=== PATIENT | male | born 1950 | race Caucasian/White ===

== ENCOUNTER → 2020-03-13 09:47 | Outpatient (BNVA) | payer SELFPAY | PROVIDERS: PCP Internal Medicine; Visit Provider Internal Medicine | DX: I48.20 Chronic atrial fibrillation, unspecified (principal); Z51.81 Encounter for therapeutic drug level monitoring; Z79.01 Long term (current) 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 | CPT/HCPCS: 85610; 99211 ==

== ENCOUNTER → 2020-03-20 13:58 | Outpatient (BNVA) | payer SELFPAY | PROVIDERS: PCP Internal Medicine; Visit Provider Internal Medicine | DX: I48.20 Chronic atrial fibrillation, unspecified (principal); Z51.81 Encounter for therapeutic drug level monitoring; Z79.01 Long term (current) 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 | CPT/HCPCS: 85610 ==

== ENCOUNTER → 2020-04-03 09:43 | Outpatient (BNVA) | payer MEDICARE, SELFPAY | PROVIDERS: PCP Internal Medicine; Visit Provider Internal Medicine | DX: I48.20 Chronic atrial fibrillation, unspecified (principal); Z51.81 Encounter for therapeutic drug level monitoring; Z79.01 Long term (current) 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 | CPT/HCPCS: 85610; 99211 ==

== ENCOUNTER 2020-05-01 09:11 | Outpatient (REF) | payer MEDICARE, SELFPAY ==
[2020-05-01 11:03] LABS: Anion Gap 13 (12-20); Blood Urea Nitrogen 23 mg/dL (9-16); Calcium 8.8 mg/dL (8.4-10.2); Carbon Dioxide 32 mmol/L (22-29); Chloride 98 mmol/L (96-108); Estimated Glomerular Filt Rate 52; Glucose Random 167 mg/dL (60-115); Potassium 4.3 mmol/l (3.3-5.1); Sodium 139 mmol/L (135-145)
[2020-05-01 11:32] LABS: Digoxin 0.8 ng/mL (0.8-2.0)
== END 2020-05-01 09:12 | disposition home or self-care (01) ==
LOC: HO.LAB 09:11
PROVIDERS: PCP Internal Medicine; Visit Provider Nurse Practitioner Family
DX: I48.20 Chronic atrial fibrillation, unspecified (principal)
CPT/HCPCS: 80048; 80162; 85610; 99211

== ENCOUNTER → 2020-05-08 09:16 | Outpatient (BNVA) | payer MEDICARE, SELFPAY | PROVIDERS: PCP Internal Medicine; Referring Provider Internal Medicine; Visit Provider Internal Medicine Cardiovascular Disease | DX: I50.32 Chronic diastolic (congestive) heart failure (principal); I11.0 Hypertensive heart disease with heart failure; I48.20 Chronic atrial fibrillation, unspecified | CPT/HCPCS: 85610; 99211; 99212 ==

== ENCOUNTER → 2020-06-07 09:22 | Outpatient (BNVA) | payer MEDICARE, SELFPAY | PROVIDERS: PCP Internal Medicine; Visit Provider Internal Medicine | DX: I48.21 Permanent atrial fibrillation (principal); Z79.01 Long term (current) 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; Z51.81 Encounter for therapeutic drug level monitoring | CPT/HCPCS: 85610; 99211 ==

== ENCOUNTER → 2020-07-05 09:38 | Outpatient (BNVA) | payer MEDICARE, SELFPAY | PROVIDERS: PCP Internal Medicine; Visit Provider Internal Medicine | DX: I48.20 Chronic atrial fibrillation, unspecified (principal); Z51.81 Encounter for therapeutic drug level monitoring; Z79.01 Long term (current) 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 | CPT/HCPCS: 85610; 99211 ==

== ENCOUNTER → 2020-07-17 09:34 | Outpatient (BNVA) | payer MEDICARE, SELFPAY | PROVIDERS: PCP Internal Medicine; Visit Provider Internal Medicine | DX: I48.20 Chronic atrial fibrillation, unspecified (principal); Z51.81 Encounter for therapeutic drug level monitoring; Z79.01 Long term (current) 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 | CPT/HCPCS: 85610; 99211 ==

== ENCOUNTER → 2020-08-14 09:32 | Outpatient (BNVA) | payer MEDICARE, SELFPAY | PROVIDERS: PCP Internal Medicine; Visit Provider Internal Medicine | DX: I48.20 Chronic atrial fibrillation, unspecified (principal); Z51.81 Encounter for therapeutic drug level monitoring; Z79.01 Long term (current) 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 | CPT/HCPCS: 85610; 99211 ==

== ENCOUNTER → 2020-09-04 09:42 | Outpatient (BNVA) | payer MEDICARE, SELFPAY | PROVIDERS: PCP Internal Medicine; Visit Provider Internal Medicine | DX: I48.20 Chronic atrial fibrillation, unspecified (principal); Z79.01 Long term (current) 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; Z51.81 Encounter for therapeutic drug level monitoring | CPT/HCPCS: 85610; 99211 ==

== ENCOUNTER → 2020-10-01 10:19 | Outpatient (BNVA) | payer MEDICARE, SELFPAY | PROVIDERS: PCP Internal Medicine; Visit Provider Internal Medicine | DX: Z51.81 Encounter for therapeutic drug level monitoring (principal) | CPT/HCPCS: Q3014 ==

== ENCOUNTER → 2020-10-08 11:36 | Outpatient (BNVA) | payer MEDICARE, SELFPAY | PROVIDERS: PCP Internal Medicine; Visit Provider Internal Medicine | DX: I48.20 Chronic atrial fibrillation, unspecified (principal) | CPT/HCPCS: Q3014 ==

== ENCOUNTER → 2020-10-15 11:44 | Outpatient (BNVA) | payer MEDICARE, SELFPAY | PROVIDERS: PCP Internal Medicine; Visit Provider Internal Medicine | DX: I48.20 Chronic atrial fibrillation, unspecified (principal); Z51.81 Encounter for therapeutic drug level monitoring; Z79.01 Long term (current) 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 | CPT/HCPCS: 85610; 99211 ==

== ENCOUNTER 2020-10-18 14:33 | Outpatient (REF) | payer MEDICARE, SELFPAY ==
[2020-10-18 16:22] LABS: Anion Gap 15 (12-20); Blood Urea Nitrogen 21 mg/dL (9-16); Calcium 9.1 mg/dL (8.4-10.2); Carbon Dioxide 31 mmol/L (22-29); Chloride 99 mmol/L (96-108); Estimated Glomerular Filt Rate 52; Glucose Random 81 mg/dL (60-115); Potassium 4.9 mmol/L (3.3-5.1); Sodium 140 mmol/L (135-145)
[2020-10-18 16:28] LABS: B Type Natriuretic Peptide 55 pg/mL (<100)
[2020-10-18 16:46] LABS: Digoxin 0.6 ng/mL (0.8-2.0)
== END 2020-10-18 14:34 | disposition home or self-care (01) ==
LOC: HO.LAB 14:33
PROVIDERS: Absent Provider Internal Medicine Cardiovascular Disease; PCP Internal Medicine Cardiovascular Disease; Visit Provider Internal Medicine
DX: I50.32 Chronic diastolic (congestive) heart failure (principal); I48.20 Chronic atrial fibrillation, unspecified; J44.9 Chronic obstructive pulmonary disease, unspecified; Z79.01 Long term (current) 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; Z79.899 Other long term (current) drug therapy
CPT/HCPCS: 36415; 80048; 80162; 83880; 93005; 99212; Q3014

== ENCOUNTER → 2020-10-25 09:45 | Outpatient (BNVA) | payer MEDICARE, SELFPAY | PROVIDERS: PCP Internal Medicine Cardiovascular Disease; Visit Provider Internal Medicine ==

== ENCOUNTER → 2020-11-01 09:41 | Outpatient (BNVA) | payer MEDICARE, SELFPAY | PROVIDERS: PCP Internal Medicine Cardiovascular Disease; Visit Provider Internal Medicine ==

== ENCOUNTER → 2020-11-07 09:14 | Outpatient (REF) | payer MEDICARE, SELFPAY ==
--- NOTE | 2020-11-07 09:18 | CA_ITS ---
Transthoracic Echocardiogram Patient (Last, First, Middle): Kiran Law, Gender: Male Date of : 1950 Age: 70 Procedure Date: 11/07/2020 Procedure Type: Transthoracic Echocardiogram Location: OP Height: 172.72 cm Weight: 95.71 kg BSA: 2.09 m2 Heart Rate: bpm BP: 130 / 62 mmHg Load Out Worker: SHAI Price MD: Mateo Bird MD Rooms Director: Mateo iBrd MD Symptoms: I50.32 - Chronic diastolic (congestive) heart failure Study Quality: Fair ECG Rhythm: Atrial Fibrillation Conclusions: - 1. Normal LV systolic function 2. Severe biatrial enlargement 3. Moderate to severe elevation of right ventricular systolic pressure 4. No pericardial effusion Findings Left Ventricle Normal left ventricular size, thickness, and systolic function. The visually estimated ejection fraction is between 55-60%. Right Ventricle Moderately increased right ventricular cavity size. There is low normal right ventricular systolic function. Atria Severe biatrial enlargement. There is lipomatous hypertrophy of the interatrial septum. There is no evidence of interatrial shunt. Aortic Valve The aortic valve was not well visualized. There is no aortic valve stenosis. There is no aortic valve regurgitation. Mitral Valve The mitral valve was not well visualized. There is trace mitral valve regurgitation. There is no mitral valve stenosis. Pulmonic Valve The pulmonic valve was not well visualized. Tricuspid Valve Likely normal tricuspid valve structure and function. There is mild tricuspid valve regurgitation. The right ventricular systolic pressure is 61 mmHg. Mildly elevated right atrial pressure. Moderate to severe pulmonary hypertension is present. Great Vessels All visible segments of the aorta are normal in size. The pulmonary artery was not well visualized. Venous The inferior vena cava is mildly dilated and collapses less than 50% with inspiration. Pericardium/Pleural There is no evidence of pericardial effusion. Prior Study Comparison Changes noted compared to prior study dated: 10/17/2019. RV systolic function is mildly increased Measurements 2D Linear Measurements IVSd: 1.07 0.6-0.9/0.6-1.0 cm LVIDd: 5.37 3.9-5.3/4.2-5.9 cm LVIDd Index: 2.57 2.4-3.2/2.2-3.1 cm/m2 LVIDs: 3.74 2.0-3.6 cm LVPWd: 1.08 0.7-1.1 cm Ao Root: 3.70 2.1-3.5 cm LA Diam: 3.90 2.7-3.8/3.0-4.0 cm LAIDs Index: 1.87 1.5-2.3 cm/m2 LV Mass: 281.22 67-162/88-224 g LV Mass Index: 134.56 43-95/49-115 g/m2 LVOT Diam: 2.50 3.0+(-)1.3 cm 2D Systolic Function EF 4C: 57.40 >55% EF 2C: 52.70 >55% EF BiP: 55.80 >55% Aortic Valve AoV Pk Bora: 1.63 AoV Mn Bora: 1.10 AoV VTI: 0.33 AoV Pk Grad: 11.00 Aov Mn Grad: 5.00 MARY Cont.VTI: 3.02 LVOT LVOT Pk Bora: 0.96 LVOT Mn Bora: 0.67 LVOT VTI: 0.20 LVOT Pk Grad: 4.00 LVOT Mn Grad: 2.00 LVOT Diam: 2.50 LVOT Area: 4.91 Tricuspid Valve TR Pk Bora: 3.65 TR Pk Grad: 53.00 RA Press: 8.00 RVSP: 61.00 Great Vessels Aorta Ao Root-2D: 3.70 2.0-3.7 cm Ao Arch: 2.70 Updated in Other Vendor System with Status of Final Mateo Bird MD electronically signed on 11/07/2020 4:14:03 PM with status of Final
== END ==
LOC: HO.CARD 09:14
PROVIDERS: Visit Provider Internal Medicine Cardiovascular Disease
DX: I50.32 Chronic diastolic (congestive) heart failure (principal); I48.20 Chronic atrial fibrillation, unspecified; I27.20 Pulmonary hypertension, unspecified
CPT/HCPCS: 93306

== ENCOUNTER → 2020-11-08 09:43 | Outpatient (BNVA) | payer MEDICARE, SELFPAY | PROVIDERS: PCP Internal Medicine Cardiovascular Disease; Visit Provider Internal Medicine ==

== ENCOUNTER → 2020-11-15 10:14 | Outpatient (BNVA) | payer MEDICARE, SELFPAY | PROVIDERS: PCP Internal Medicine; Visit Provider Internal Medicine ==

== ENCOUNTER → 2020-11-20 09:47 | Outpatient (BNVA) | payer MEDICARE, SELFPAY | PROVIDERS: PCP Internal Medicine; Visit Provider Internal Medicine Cardiovascular Disease | DX: I50.32 Chronic diastolic (congestive) heart failure (principal); I48.20 Chronic atrial fibrillation, unspecified | CPT/HCPCS: 99212 ==

== ENCOUNTER → 2020-11-22 14:29 | Outpatient (BNVA) | payer MEDICARE, SELFPAY | PROVIDERS: PCP Internal Medicine; Visit Provider Internal Medicine | DX: I48.20 Chronic atrial fibrillation, unspecified (principal); Z51.81 Encounter for therapeutic drug level monitoring; Z79.01 Long term (current) 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 | CPT/HCPCS: 99211 ==

== ENCOUNTER → 2020-12-06 09:17 | Outpatient (REF) | payer MEDICARE, SELFPAY ==
--- NOTE | ~2020-12-06 | NM_ITS ---
TC- Pyrophosphate Cardiac study INDICATION: Evaluation cardiac amyloidosis CLINICAL HISTORY: 70-year-old male with prior history of long-standing atrial fibrillation developed recent heart failure preserved ejection fraction with increased LV wall thickness TECHNIQUE: The patient was injected with 25 mCi of technetium pyrophosphate intravenously. Planar images of the chest were obtained in the anterior and left lateral view after [address] images of the chest were also obtained, however difficult to process due to absent cardiac uptake. FINDINGS: 1. Image quality is adequate 2. Semiquantitative visual scarring of the cardiac uptake is 0 3.. No clear other abnormalities noted about conclusion: CONCLUSION: 1. No evidence of TTR-type cardiac amyloidosis 2. This study does not conclusively rule out light chain cardiac amyloidosis and if clinically suspected serum and urine studies should be considered
== END ==
LOC: HO.NUCMED 09:17
PROVIDERS: Visit Provider Internal Medicine Cardiovascular Disease
DX: I50.32 Chronic diastolic (congestive) heart failure (principal)
CPT/HCPCS: 78803; A9538

== ENCOUNTER → 2020-12-11 09:38 | Outpatient (BNVA) | payer MEDICARE, SELFPAY | PROVIDERS: PCP Internal Medicine; Visit Provider Internal Medicine | DX: I48.20 Chronic atrial fibrillation, unspecified (principal); Z51.81 Encounter for therapeutic drug level monitoring; Z79.01 Long term (current) 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 | CPT/HCPCS: 85610; 99211 ==

== ENCOUNTER → 2021-01-01 08:55 | Outpatient (BNVA) | payer MEDICARE, SELFPAY | PROVIDERS: PCP Internal Medicine; Visit Provider Internal Medicine | DX: I48.20 Chronic atrial fibrillation, unspecified (principal); Z51.81 Encounter for therapeutic drug level monitoring; Z79.01 Long term (current) 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 | CPT/HCPCS: 85610; 99211 ==

== ENCOUNTER → 2021-01-08 09:35 | Outpatient (BNVA) | payer MEDICARE, SELFPAY | PROVIDERS: PCP Internal Medicine; Visit Provider Internal Medicine | DX: I48.20 Chronic atrial fibrillation, unspecified (principal); Z79.01 Long term (current) 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; Z51.81 Encounter for therapeutic drug level monitoring | CPT/HCPCS: 85610; 99211 ==

== ENCOUNTER → 2021-01-22 09:52 | Outpatient (BNVA) | payer MEDICARE, SELFPAY | PROVIDERS: PCP Internal Medicine; Visit Provider Internal Medicine | DX: I48.20 Chronic atrial fibrillation, unspecified (principal); Z51.81 Encounter for therapeutic drug level monitoring; Z79.01 Long term (current) 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 | CPT/HCPCS: 85610; 99211 ==

== ENCOUNTER → 2021-02-19 09:45 | Outpatient (BNVA) | payer MEDICARE, SELFPAY | PROVIDERS: PCP Internal Medicine; Visit Provider Internal Medicine | DX: I48.20 Chronic atrial fibrillation, unspecified (principal); Z51.81 Encounter for therapeutic drug level monitoring; Z79.01 Long term (current) 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 | CPT/HCPCS: 85610; 99211 ==

== ENCOUNTER → 2021-03-05 09:25 | Outpatient (BNVA) | payer MEDICARE, SELFPAY | PROVIDERS: PCP Internal Medicine; Visit Provider Internal Medicine | DX: I48.20 Chronic atrial fibrillation, unspecified (principal); Z51.81 Encounter for therapeutic drug level monitoring; Z79.01 Long term (current) 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 | CPT/HCPCS: 85610; 99211 ==

== ENCOUNTER → 2021-04-02 09:32 | Outpatient (BNVA) | payer MEDICARE, SELFPAY | PROVIDERS: PCP Internal Medicine; Visit Provider Internal Medicine | DX: I48.20 Chronic atrial fibrillation, unspecified (principal); Z51.81 Encounter for therapeutic drug level monitoring; Z79.01 Long term (current) 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 | CPT/HCPCS: 85610; 99211 ==

== ENCOUNTER → 2021-05-07 09:32 | Outpatient (BNVA) | payer MEDICARE, SELFPAY | PROVIDERS: PCP Internal Medicine; Visit Provider Internal Medicine | DX: I48.20 Chronic atrial fibrillation, unspecified (principal); Z51.81 Encounter for therapeutic drug level monitoring; Z79.01 Long term (current) 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 | CPT/HCPCS: 85610; 99211 ==

== ENCOUNTER → 2021-05-21 09:54 | Outpatient (BNVA) | payer MEDICARE, SELFPAY | PROVIDERS: PCP Internal Medicine; Visit Provider Internal Medicine | DX: I48.20 Chronic atrial fibrillation, unspecified (principal); Z51.81 Encounter for therapeutic drug level monitoring; Z79.01 Long term (current) 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 | CPT/HCPCS: 85610; 99211 ==

== ENCOUNTER → 2021-06-18 09:28 | Outpatient (BNVA) | payer MEDICARE, SELFPAY | PROVIDERS: PCP Internal Medicine; Visit Provider Internal Medicine | DX: I48.20 Chronic atrial fibrillation, unspecified (principal); Z51.81 Encounter for therapeutic drug level monitoring; Z79.01 Long term (current) 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 | CPT/HCPCS: 85610; 99211 ==

== ENCOUNTER → 2021-07-16 09:36 | Outpatient (BNVA) | payer MEDICARE, SELFPAY | PROVIDERS: PCP Internal Medicine; Visit Provider Internal Medicine | DX: I48.20 Chronic atrial fibrillation, unspecified (principal); Z51.81 Encounter for therapeutic drug level monitoring; Z79.01 Long term (current) 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 | CPT/HCPCS: 85610; 99211 ==

== ENCOUNTER → 2021-08-13 10:01 | Outpatient (BNVA) | payer MEDICARE, SELFPAY | PROVIDERS: PCP Internal Medicine; Visit Provider Internal Medicine | DX: I48.20 Chronic atrial fibrillation, unspecified (principal); Z51.81 Encounter for therapeutic drug level monitoring; Z79.01 Long term (current) 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 | CPT/HCPCS: 85610; 99211 ==

== ENCOUNTER 2021-08-19 08:28 | Outpatient (REF) | payer MEDICARE, SELFPAY ==
[2021-08-19 10:24] LABS: Hematocrit 43.6 % (42.0-52.0); Hemoglobin 13.9 g/dl (14.0-18.0); Mean Corpuscular HGB Conc 31.9 g/dl (31.0-36.0); Mean Corpuscular Volume 100.5 fL (80.0-98.0); Mean Platelet Volume 10.1 fL (9.4-12.4); Platelet Count 206 X10*3/uL (160-400); Red Blood Count 4.34 X10*6/uL (4.60-5.80); Red Cell Distribution Width 16.4 % (11.0-16.0); White Blood Count 9.6 X10*3/uL (4.8-10.8)
[2021-08-19 10:56] LABS: Anion Gap 13 (12-20); Blood Urea Nitrogen 28 mg/dL (9-16); Calcium 9.3 mg/dL (8.4-10.2); Carbon Dioxide 33 mmol/L (22-29); Chloride 98 mmol/L (96-108); Estimated Glomerular Filt Rate 43; Glucose Random 115 mg/dL (60-115); Potassium 4.5 mmol/L (3.3-5.1); Sodium 139 mmol/L (135-145)
[2021-08-19 10:59] LABS: B Type Natriuretic Peptide 42 pg/mL (<100)
[2021-08-19 11:33] LABS: Digoxin 0.7 ng/mL (0.8-2.0)
== END 2021-08-19 08:29 | disposition home or self-care (01) ==
LOC: HO.LAB 08:28
PROVIDERS: PCP Internal Medicine; Referring Provider Internal Medicine; Visit Provider Internal Medicine Cardiovascular Disease
DX: I50.32 Chronic diastolic (congestive) heart failure (principal); I48.20 Chronic atrial fibrillation, unspecified; Z79.01 Long term (current) 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; Z79.899 Other long term (current) drug therapy
CPT/HCPCS: 36415; 80048; 80162; 83880; 85027; 99212

== ENCOUNTER → 2021-09-10 09:19 | Outpatient (BNVA) | payer MEDICARE, SELFPAY | PROVIDERS: PCP Internal Medicine; Visit Provider Internal Medicine | DX: I48.20 Chronic atrial fibrillation, unspecified (principal); Z51.81 Encounter for therapeutic drug level monitoring; Z79.01 Long term (current) 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 | CPT/HCPCS: 85610; 99211 ==

== ENCOUNTER 2021-09-19 10:36 | Outpatient (REF) | payer MEDICARE, SELFPAY ==
[2021-09-19 11:53] LABS: Digoxin 0.5 ng/mL (0.8-2.0)
[2021-09-19 11:58] LABS: Anion Gap 12 (12-20); B Type Natriuretic Peptide 52 pg/mL (<100); Blood Urea Nitrogen 31 mg/dL (9-16); Calcium 9.7 mg/dL (8.4-10.2); Carbon Dioxide 34 mmol/L (22-29); Chloride 100 mmol/L (96-108); Estimated Glomerular Filt Rate 41; Glucose Random 131 mg/dL (60-115); Potassium 4.5 mmol/L (3.3-5.1); Sodium 141 mmol/L (135-145)
== END 2021-09-19 10:37 | disposition home or self-care (01) ==
LOC: HO.LAB 10:36
PROVIDERS: PCP Internal Medicine; Visit Provider Internal Medicine Cardiovascular Disease
DX: I50.32 Chronic diastolic (congestive) heart failure (principal); I48.20 Chronic atrial fibrillation, unspecified; Z79.899 Other long term (current) drug therapy
CPT/HCPCS: 36415; 80048; 80162; 83880

== ENCOUNTER → 2021-10-08 09:27 | Outpatient (BNVA) | payer MEDICARE, SELFPAY | PROVIDERS: PCP Internal Medicine; Visit Provider Internal Medicine | DX: I48.20 Chronic atrial fibrillation, unspecified (principal); Z79.01 Long term (current) 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; Z51.81 Encounter for therapeutic drug level monitoring | CPT/HCPCS: 85610; 99211 ==

== ENCOUNTER → 2021-11-12 09:48 | Outpatient (BNVA) | payer MEDICARE, SELFPAY | PROVIDERS: PCP Internal Medicine; Visit Provider Internal Medicine | DX: I48.20 Chronic atrial fibrillation, unspecified (principal); Z79.01 Long term (current) 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; Z51.81 Encounter for therapeutic drug level monitoring | CPT/HCPCS: 85610; 99211 ==

== ENCOUNTER 2021-12-17 09:59 | Outpatient (REF) | payer MEDICARE, SELFPAY ==
[2021-12-17 10:24] LABS: Prothrombin Time 80.6 SEC (10.0-13.1)
[2021-12-17 10:33] LABS: INTERNATIONAL NORM RATIO 6.5 (0.9-1.1)
== END 2021-12-17 10:00 | disposition home or self-care (01) ==
LOC: HO.LAB 09:59
PROVIDERS: Visit Provider Internal Medicine
DX: I48.20 Chronic atrial fibrillation, unspecified (principal); Z51.81 Encounter for therapeutic drug level monitoring; Z79.01 Long term (current) 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
CPT/HCPCS: 36415; 85610; 99211

== ENCOUNTER → 2021-12-19 10:45 | Outpatient (BNVA) | payer MEDICARE, SELFPAY | PROVIDERS: PCP Internal Medicine; Visit Provider Internal Medicine | DX: I48.20 Chronic atrial fibrillation, unspecified (principal); Z51.81 Encounter for therapeutic drug level monitoring; Z79.01 Long term (current) 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 | CPT/HCPCS: 85610; 99211 ==

== ENCOUNTER → 2021-12-27 09:47 | Outpatient (BNVA) | payer MEDICARE, SELFPAY | PROVIDERS: PCP Internal Medicine; Visit Provider Internal Medicine | DX: I48.20 Chronic atrial fibrillation, unspecified (principal); Z79.01 Long term (current) 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; Z51.81 Encounter for therapeutic drug level monitoring | CPT/HCPCS: 85610; 99211 ==

== ENCOUNTER → 2022-01-06 09:18 | Outpatient (REF) | payer MEDICARE, SELFPAY ==
--- NOTE | 2022-01-06 09:20 | CA_ITS ---
Transthoracic Echocardiogram Patient (Last, First, Middle): Kiran Law, Gender: Male Date of : 1950 Age: 71 Procedure Date: 01/06/2022 Procedure Type: Transthoracic Echocardiogram Location: OP Height: 172.72 cm Weight: 97.07 kg BSA: 2.10 m2 Heart Rate: bpm BP: 120 / 60 mmHg Sausage Machine Operator: TO Referring MD: Mateo Bird MD Symptoms: I50.32 - Chronic diastolic (congestive) heart failure Study Quality: Fair ECG Rhythm: Atrial Fibrillation Conclusions: - The left ventricular systolic function is normal. The calculated ejection fraction is 62% by biplane method. - Moderately increased right ventricular cavity size. - There is mild dilatation of the sinuses of Valsalva measuring 4.18 cm and mild dilatation of the ascending aorta measuring 4.00 cm. - There is mild mitral annular calcification. - There is mild tricuspid valve regurgitation. - Moderate pulmonary hypertension is present. Findings Left Ventricle Normal left ventricular cavity size. There is normal left ventricular wall thickness. The left ventricular systolic function is normal. The calculated ejection fraction is 62% by biplane method. There is no evidence of regional wall motion abnormalities. Diastolic function is indeterminate on the basis of available data. Right Ventricle Moderately increased right ventricular cavity size. There is normal right ventricular systolic function. Atria Severe biatrial enlargement. Aortic Valve The aortic valve was not well visualized. There is no aortic valve stenosis. There is trace (trivial) aortic valve regurgitation. Mitral Valve The mitral valve appears normal. There is mild mitral annular calcification. There is trace mitral valve regurgitation. There is no mitral valve stenosis. Pulmonic Valve The pulmonic valve is likely normal. Tricuspid Valve There is mild tricuspid valve regurgitation. The right ventricular systolic pressure is 53 mmHg. Moderate pulmonary hypertension is present. Great Vessels There is mild dilatation of the sinuses of Valsalva measuring 4.18 cm and mild dilatation of the ascending aorta measuring 4.00 cm. Venous The inferior vena cava is dilated and collapses greater than 50% with inspiration. Pericardium/Pleural There is no evidence of pericardial effusion. Prior Study Comparison Changes noted compared to prior study dated: 11/07/2020. Slight improvement in pulmonary hypertension. Measurements 2D Linear Measurements IVSd: 1.04 0.6-0.9/0.6-1.0 cm LVIDd: 5.61 3.9-5.3/4.2-5.9 cm LVIDd Index: 2.67 2.4-3.2/2.2-3.1 cm/m2 LVIDs: 4.05 2.0-3.6 cm LVPWd: 1.09 0.7-1.1 cm LA Diam: 4.20 2.7-3.8/3.0-4.0 cm LAIDs Index: 2.00 1.5-2.3 cm/m2 LV Mass: 298.61 67-162/88-224 g LV Mass Index: 142.20 43-95/49-115 g/m2 LVOT Diam: 2.20 3.0+(-)1.3 cm 2D Systolic Function EF 4C: 57.80 >55% EF 2C: 64.70 >55% EF BiP: 62.10 >55% Mitral Valve MV Pk E: 1.32 MV Decel Time: 173.00 E'Lateral: 12.10 E'Medial: 11.70 E/E' Med: 11.30 E/E' Lat: 10.90 PHT: 51.00 MVA PHT: 4.31 Decel Lyon: 7.59 Aortic Valve AoV Pk Bora: 1.56 AoV Mn Bora: 1.05 AoV VTI: 0.30 AoV Pk Grad: 10.00 Aov Mn Grad: 5.00 MARY Cont.VTI: 2.27 LVOT LVOT Pk Bora: 0.93 LVOT Mn Bora: 0.63 LVOT VTI: 0.18 LVOT Pk Grad: 3.00 LVOT Mn Grad: 2.00 LVOT Diam: 2.20 LVOT Area: 3.80 Diastolic Function MV Pk E: 1.32 E'Medial: 11.70 E/E' Med: 11.30 E' Laterial: 12.10 E/E' Lat: 10.90 Right Ventricle TAPSE (mm): 22.30 TVS' Bora: 14.80 Tricuspid Valve TR Pk Bora: 3.34 TR Pk Grad: 45.00 RA Press: 8.00 RVSP: 53.00 Great Vessels Aorta Sinus of Valsalva: 4.18 2.0-3.[address] Ridge: 2.58 1.7-3.4 cm Ao Asc: 4.00 2.1-3.4 cm Updated in Other Vendor System with Status of Final Ashok Lee MD electronically signed on 01/06/2022 12:03:13 PM with status of Final
== END ==
LOC: HO.CARD 09:18
PROVIDERS: Visit Provider Internal Medicine Cardiovascular Disease
DX: I50.32 Chronic diastolic (congestive) heart failure (principal); I48.91 Unspecified atrial fibrillation
CPT/HCPCS: 85610; 93306; 99211

== ENCOUNTER → 2022-01-28 09:44 | Outpatient (BNVA) | payer MEDICARE, SELFPAY | PROVIDERS: PCP Internal Medicine; Visit Provider Internal Medicine | DX: I48.20 Chronic atrial fibrillation, unspecified (principal); Z79.01 Long term (current) 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; Z51.81 Encounter for therapeutic drug level monitoring | CPT/HCPCS: 85610; 99211 ==

== ENCOUNTER → 2022-02-11 09:51 | Outpatient (BNVA) | payer MEDICARE, SELFPAY | PROVIDERS: PCP Internal Medicine; Visit Provider Internal Medicine | DX: I48.20 Chronic atrial fibrillation, unspecified (principal); Z79.01 Long term (current) 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; Z51.81 Encounter for therapeutic drug level monitoring | CPT/HCPCS: 85610; 99211 ==

== ENCOUNTER → 2022-02-14 09:54 | Outpatient (BNVA) | payer MEDICARE, SELFPAY | PROVIDERS: PCP Internal Medicine; Visit Provider Internal Medicine | DX: I48.20 Chronic atrial fibrillation, unspecified (principal); Z79.01 Long term (current) 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; Z51.81 Encounter for therapeutic drug level monitoring | CPT/HCPCS: 85610; 99211 ==

== ENCOUNTER → 2022-02-24 09:05 | Outpatient (BNVA) | payer MEDICARE, SELFPAY | PROVIDERS: PCP Internal Medicine; Visit Provider Internal Medicine Cardiovascular Disease | DX: I50.32 Chronic diastolic (congestive) heart failure (principal); I48.20 Chronic atrial fibrillation, unspecified; I77.89 Other specified disorders of arteries and arterioles | CPT/HCPCS: 93005; 99212 ==

== ENCOUNTER → 2022-02-28 09:52 | Outpatient (BNVA) | payer MEDICARE, SELFPAY | PROVIDERS: PCP Internal Medicine; Visit Provider Internal Medicine | DX: I48.20 Chronic atrial fibrillation, unspecified (principal); Z79.01 Long term (current) 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; Z51.81 Encounter for therapeutic drug level monitoring | CPT/HCPCS: 85610; 99211 ==

== ENCOUNTER → 2022-03-04 09:24 | Outpatient (BNVA) | payer MEDICARE, SELFPAY | PROVIDERS: PCP Internal Medicine; Visit Provider Internal Medicine | DX: I48.20 Chronic atrial fibrillation, unspecified (principal); Z79.01 Long term (current) 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; Z51.81 Encounter for therapeutic drug level monitoring | CPT/HCPCS: 85610; 99211 ==

== ENCOUNTER → 2022-03-11 08:56 | Outpatient (BNVA) | payer MEDICARE, SELFPAY | PROVIDERS: PCP Internal Medicine; Visit Provider Internal Medicine | DX: I48.20 Chronic atrial fibrillation, unspecified (principal); Z79.01 Long term (current) 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; Z51.81 Encounter for therapeutic drug level monitoring | CPT/HCPCS: 85610; 99211 ==

== ENCOUNTER → 2022-03-25 09:38 | Outpatient (BNVA) | payer MEDICARE, SELFPAY | PROVIDERS: PCP Internal Medicine; Visit Provider Internal Medicine | DX: I48.20 Chronic atrial fibrillation, unspecified (principal); Z79.01 Long term (current) 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; Z51.81 Encounter for therapeutic drug level monitoring | CPT/HCPCS: 85610; 99211 ==

== ENCOUNTER → 2022-03-28 10:10 | Outpatient (BNVA) | payer MEDICARE, SELFPAY | PROVIDERS: PCP Internal Medicine; Visit Provider Internal Medicine | DX: I48.20 Chronic atrial fibrillation, unspecified (principal); Z79.01 Long term (current) 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; Z51.81 Encounter for therapeutic drug level monitoring | CPT/HCPCS: 85610; 99211 ==

== ENCOUNTER → 2022-04-04 09:41 | Outpatient (BNVA) | payer MEDICARE, SELFPAY | PROVIDERS: PCP Internal Medicine; Visit Provider Internal Medicine | DX: I48.20 Chronic atrial fibrillation, unspecified (principal); Z79.01 Long term (current) 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; Z51.81 Encounter for therapeutic drug level monitoring | CPT/HCPCS: 85610; 99211 ==

== ENCOUNTER → 2022-04-18 09:52 | Outpatient (BNVA) | payer MEDICARE, SELFPAY | PROVIDERS: PCP Internal Medicine; Visit Provider Internal Medicine | DX: I48.20 Chronic atrial fibrillation, unspecified (principal); Z79.01 Long term (current) 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; Z51.81 Encounter for therapeutic drug level monitoring | CPT/HCPCS: 85610; 99211 ==

== ENCOUNTER → 2022-04-30 09:31 | Outpatient (BNVA) | payer MEDICARE, SELFPAY | PROVIDERS: PCP Internal Medicine; Visit Provider Internal Medicine | DX: I48.20 Chronic atrial fibrillation, unspecified (principal); Z51.81 Encounter for therapeutic drug level monitoring; Z79.01 Long term (current) 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 | CPT/HCPCS: 85610; 99211 ==

== ENCOUNTER → 2022-05-16 09:34 | Outpatient (BNVA) | payer MEDICARE, SELFPAY | PROVIDERS: PCP Internal Medicine; Visit Provider Internal Medicine | DX: I48.20 Chronic atrial fibrillation, unspecified (principal); Z79.01 Long term (current) 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; Z51.81 Encounter for therapeutic drug level monitoring | CPT/HCPCS: 85610; 99211 ==

== ENCOUNTER → 2022-06-13 09:20 | Outpatient (BNVA) | payer MEDICARE, SELFPAY | PROVIDERS: PCP Internal Medicine; Visit Provider Internal Medicine | DX: I48.20 Chronic atrial fibrillation, unspecified (principal); Z79.01 Long term (current) 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; Z51.81 Encounter for therapeutic drug level monitoring | CPT/HCPCS: 85610; 99211 ==

== ENCOUNTER → 2022-07-11 09:26 | Outpatient (BNVA) | payer MEDICARE, SELFPAY | PROVIDERS: PCP Internal Medicine; Visit Provider Internal Medicine | DX: I48.20 Chronic atrial fibrillation, unspecified (principal); Z79.01 Long term (current) 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; Z51.81 Encounter for therapeutic drug level monitoring | CPT/HCPCS: 85610; 99211 ==

== ENCOUNTER → 2022-08-08 09:20 | Outpatient (BNVA) | payer MEDICARE, SELFPAY | PROVIDERS: PCP Internal Medicine; Visit Provider Internal Medicine | DX: I48.20 Chronic atrial fibrillation, unspecified (principal); Z79.01 Long term (current) 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; Z51.81 Encounter for therapeutic drug level monitoring | CPT/HCPCS: 85610 ==

== ENCOUNTER → 2022-08-15 09:38 | Outpatient (BNVA) | payer MEDICARE, SELFPAY | PROVIDERS: PCP Internal Medicine; Visit Provider Internal Medicine | DX: I48.20 Chronic atrial fibrillation, unspecified (principal); Z79.01 Long term (current) 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; Z51.81 Encounter for therapeutic drug level monitoring | CPT/HCPCS: 85610; 99211 ==

== ENCOUNTER 2022-08-28 08:47 | Outpatient (REF) | payer MEDICARE, SELFPAY ==
[2022-08-28 10:36] LABS: Hematocrit 37.4 % (42.0-52.0); Hemoglobin 11.5 g/dl (14.0-18.0); Mean Corpuscular HGB Conc 30.7 g/dl (31.0-36.0); Mean Corpuscular Hemoglobin 31.1 pg (27.0-33.0); Mean Corpuscular Volume 101.1 fL (80.0-98.0); Mean Platelet Volume 9.8 fL (9.4-12.4); Platelet Count 203 X10*3/uL (160-400); Red Cell Distribution Width 17.6 % (11.0-16.0); White Blood Count 8.8 X10*3/uL (4.8-10.8)
[2022-08-28 10:41] LABS: INTERNATIONAL NORM RATIO 4.9 (0.9-1.1); Prothrombin Time 59.7 SEC (10.0-13.1)
[2022-08-28 11:07] LABS: Anion Gap 15 (12-20); B Type Natriuretic Peptide 59 pg/mL (<100); Blood Urea Nitrogen 20 mg/dL (9-16); Calcium 8.9 mg/dL (8.4-10.2); Carbon Dioxide 35 mmol/L (22-29); Chloride 100 mmol/L (96-108); Estimated Glomerular Filt Rate 46; Glucose Random 91 mg/dL (60-115); Potassium 3.9 mmol/L (3.3-5.1); Sodium 146 mmol/L (135-145)
[2022-08-28 11:08] LABS: Digoxin 0.9 ng/mL (0.8-2.0)
== END 2022-08-28 08:48 | disposition home or self-care (01) ==
LOC: HO.LAB 08:47
PROVIDERS: Absent Provider Internal Medicine Cardiovascular Disease; PCP Internal Medicine; Visit Provider Internal Medicine
DX: I50.32 Chronic diastolic (congestive) heart failure (principal); I48.20 Chronic atrial fibrillation, unspecified; I77.89 Other specified disorders of arteries and arterioles; Z79.899 Other long term (current) drug therapy; Z51.81 Encounter for therapeutic drug level monitoring; Z79.01 Long term (current) 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
CPT/HCPCS: 36415; 80048; 80162; 83880; 85027; 85610; 99211; 99212

== ENCOUNTER → 2022-09-01 09:10 | Outpatient (BNVA) | payer MEDICARE, SELFPAY | PROVIDERS: PCP Internal Medicine; Visit Provider Internal Medicine | DX: I48.20 Chronic atrial fibrillation, unspecified (principal); Z79.01 Long term (current) 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; Z51.81 Encounter for therapeutic drug level monitoring | CPT/HCPCS: 85610; 99211 ==

== ENCOUNTER → 2022-09-10 09:32 | Outpatient (BNVA) | payer MEDICARE, SELFPAY | PROVIDERS: PCP Internal Medicine; Visit Provider Internal Medicine | DX: I48.20 Chronic atrial fibrillation, unspecified (principal); Z51.81 Encounter for therapeutic drug level monitoring; Z79.01 Long term (current) 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 | CPT/HCPCS: 85610; 99211 ==

== ENCOUNTER → 2022-09-26 10:15 | Outpatient (BNVA) | payer MEDICARE, SELFPAY | PROVIDERS: PCP Internal Medicine; Visit Provider Internal Medicine | DX: I48.20 Chronic atrial fibrillation, unspecified (principal); Z79.01 Long term (current) 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; Z51.81 Encounter for therapeutic drug level monitoring | CPT/HCPCS: 85610; 99211 ==

== ENCOUNTER → 2022-09-29 07:54 | Outpatient (REF) | payer MEDICARE, SELFPAY ==
--- NOTE | ~2022-09-29 | NM_ITS ---
Lexiscan Myocardial perfusion study Indication: Atrial fibrillation, coronary disease, assess for ischemia Technique: The patient was brought in for a Lexiscan perfusion study on 09/29/2022 and was injected 0.4 mg of Lexiscan intravenously. Within a minute of this injection 30 mCi of sestamibi was given intravenously. Images were obtained using the SPECT gamma camera interlaced with the gating device. Images were obtained in supine position. Resting perfusion study was performed on 10/01/2022. Patient was administered 30 mCi of sestamibi intravenously at rest. Images were then obtained in supine position. Images were processed with the software and compared side to side in short axis, horizontal long axis and vertical long axis views. Total DLP 125mGy-cm. Findings: Raw acquisition reviewed. Arms by the patient's side. The stress perfusion study showed reduced tracer uptake along the inferior wall. With CT attenuation correction, there is improved uptake suggesting diaphragmatic attenuation artifact. The gated study shows normal LV systolic function with calculated LVEF of 63%. LV cavity is normal in size. The gated study shows normal wall thickening and contraction of segments. Resting study shows diminished tracer uptake along the inferior wall. Improvement with uptake with CT attenuation correction. Gating at rest reveals normal wall motion with ejection fraction at 60%. The findings are consistent with fixed inferior defect suspected to be from diaphragmatic attenuation artifact. NM/NM lex perf SPECT rest & str Impression: 1. Myocardial perfusion imaging study shows no clear evidence of any ischemia or infarction. Probably normal perfusion. 2. Gated LVEF is 63% during stress and 60% during rest. 3. Transient ischemic dilatation not present. EKG component of the test reported separately.
--- NOTE | 2022-09-29 08:05 | CA_ITS ---
Acquisition Time: 2022-09-29 08:15:25 Total Exercise Time: 00:02:00 Test Indications: AFIB, SOB, CHF Medications: SEE H Protocol: LEXISCAN Max HR: 106 BPM 72% of Pred: 147 BPM Max BP: 124/060 mmHG Max Work Load: 1.0 METS Pharmacological stress test with Lexiscan injection, while sitting and kicking his legs, without anginal symptoms, with isolated PVCs, with normotensive response to injection, with nondiagnostic EKG for ischemia. Nuclear images pending. Test reviewed with Dr Bird. Referred By: Mateo Bird Overread By: HE ARENAS
--- NOTE | 2022-10-01 10:48 | ECG_ITS ---
Test Reason : chf, preop Blood Pressure : / mmHG Vent. Rate : 069 BPM Atrial Rate : 000 BPM P-R Int : 000 ms QRS Dur : 112 ms QT Int : 406 ms P-R-T Axes : 000 043 -12 degrees QTc Int : 435 ms Atrial fibrillation Low voltage QRS Nonspecific ST abnormality Abnormal ECG No previous ECGs available Referred By: Mateo Bird Electronically Signed By:MATEO BIRD MD
== END ==
LOC: HO.CARD 07:54
PROVIDERS: PCP Internal Medicine; Visit Provider Internal Medicine Cardiovascular Disease
DX: Z01.818 Encounter for other preprocedural examination (principal); I50.32 Chronic diastolic (congestive) heart failure; I48.20 Chronic atrial fibrillation, unspecified; I77.89 Other specified disorders of arteries and arterioles
CPT/HCPCS: 78452; 93005; 93017; A9500; J0280; J2785

== ENCOUNTER → 2022-10-15 10:08 | Outpatient (BNVA) | payer MEDICARE, SELFPAY | PROVIDERS: PCP Internal Medicine; Visit Provider Internal Medicine | DX: I48.20 Chronic atrial fibrillation, unspecified (principal); Z79.01 Long term (current) 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; Z51.81 Encounter for therapeutic drug level monitoring | CPT/HCPCS: 85610; 99212 ==

== ENCOUNTER → 2022-11-10 09:58 | Outpatient (BNVA) | payer MEDICARE, SELFPAY | PROVIDERS: PCP Internal Medicine; Visit Provider Internal Medicine | DX: I48.20 Chronic atrial fibrillation, unspecified (principal); Z79.01 Long term (current) 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; Z51.81 Encounter for therapeutic drug level monitoring | CPT/HCPCS: 85610; 99212 ==

== ENCOUNTER 2022-11-20 10:06 | Outpatient (REF) | payer MEDICARE, SELFPAY ==
[2022-11-20 11:27] LABS: Hematocrit 31.4 % (42.0-52.0); Hemoglobin 9.7 g/dl (14.0-18.0); Mean Corpuscular HGB Conc 30.9 g/dl (31.0-36.0); Mean Corpuscular Hemoglobin 31.5 pg (27.0-33.0); Mean Corpuscular Volume 101.9 fL (80.0-98.0); Mean Platelet Volume 10.3 fL (9.4-12.4); Platelet Count 245 X10*3/uL (160-400); Red Blood Count 3.08 X10*6/uL (4.60-5.80); Red Cell Distribution Width 18.6 % (11.0-16.0); White Blood Count 8.4 X10*3/uL (4.8-10.8)
[2022-11-20 12:02] LABS: B Type Natriuretic Peptide 63 pg/mL (<100)
[2022-11-20 12:11] LABS: Digoxin 0.7 ng/mL (0.8-2.0)
[2022-11-20 12:48] LABS: Anion Gap 13 (12-20); Blood Urea Nitrogen 23 mg/dL (9-16); Calcium 8.7 mg/dL (8.4-10.2); Carbon Dioxide 35 mmol/L (22-29); Chloride 99 mmol/L (96-108); Estimated Glomerular Filt Rate 55; Potassium 3.7 mmol/L (3.3-5.1); Sodium 143 mmol/L (135-145)
[2022-11-20 14:21] LABS: Glucose Random 56 mg/dL (60-115)
== END 2022-11-20 10:07 | disposition home or self-care (01) ==
LOC: CF 10:06
PROVIDERS: PCP Internal Medicine; Referring Provider Internal Medicine; Visit Provider Internal Medicine Cardiovascular Disease
DX: I48.20 Chronic atrial fibrillation, unspecified (principal); I50.32 Chronic diastolic (congestive) heart failure; Z99.81 Dependence on supplemental oxygen; Z79.899 Other long term (current) drug therapy
CPT/HCPCS: 36415; 80048; 80162; 83880; 85027; 99212

== ENCOUNTER → 2022-11-24 09:54 | Outpatient (BNVA) | payer MEDICARE, SELFPAY | PROVIDERS: PCP Internal Medicine; Visit Provider Internal Medicine | DX: I48.20 Chronic atrial fibrillation, unspecified (principal); Z79.01 Long term (current) 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; Z51.81 Encounter for therapeutic drug level monitoring | CPT/HCPCS: 85610; 99211 ==

== ENCOUNTER 2022-12-15 10:30 | Outpatient (AMB) | payer MEDICARE, SELFPAY ==
--- NOTE | 2022-12-15 10:34 | MHC.OFFVISCO ---
Intake Intake Visit Reasons: Anticoagulation Allergies No Known Allergies Allergy (Verified 12/15/22 10:30) Medication List - Last Reconciled 12/15/22 by Breanna Jose RN albuterol sulfate 90 mcg/actuation 1 inh inhalation QID PRN alcohol swabs pad topical ascorbic acid (vitamin C) 500 mg PO DAILY budesonide-formoterol 160-4.5 mcg/actuation 2 puffs PO BID digoxin 125 mcg PO DAILY 90 days diltiazem HCl ER 180 mg PO DAILY 90 days ezetimibe 10 mg PO DAILY ferrous sulfate 325 mg PO DAILY glipizide 10 mg PO DAILY lisinopril 2.5 mg PO DAILY metformin 500 mg PO BID [methylcobalamin 500 mcg PO DAILY] pravastatin 80 mg PO DAILY tiotropium bromide 18 mcg PO DAILY torsemide 40 mg PO DAILY vitamin B complex (B Complex-Vitamin B12 tablet) 1 tab PO DAILY warfarin 5 mg See Protocol PO DAILY warfarin 1 mg See Protocol PO DAILY Nursing Note INR: 2.4- in therapeutic range Medications and supplements reviewed- no changes No changes in health, diet, medications, or supplements, Denies any signs and symptoms of bleeding or bruising or clotting. Bleeding, bruising, clotting discussed Nutritional guidance given Dose: 5mg x 3, 2.5 mg x 4 F/U INR: pt req 4 week f/u Patient verbalizes understanding of instructions given pt s/p thr right- c.o lower extrem edema- states left greater than right. c.o shortness of breath with exertion, states wears oxygen cont at home. w/c offered, pt amb with cane. c.o fatigue. pt states has appt with cardiology today- dr samano Coding Level of Care Code Est Patient Level 1 Diagnoses Current use of anticoagulant therapy Z79.01 Assessment & Plan Assessment & Plan (1) Current use of anticoagulant therapy: Code(s): Z79.01 - care home (current) 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 Category: Medical
[2022-12-15 10:35] LABS: Prothrombin Time Whole Bld POC 28.6 sec (11.1-13.5); ~PT, ~INR - Anti Coag Clinic 2.4 (0.9-1.1)
== END 2022-12-15 10:41 | disposition home or self-care (01) ==
LOC: HO.ACS 10:30
PROVIDERS: PCP Internal Medicine; Visit Provider Internal Medicine
DX: Z79.01 Long term (current) 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 (principal)

== ENCOUNTER → 2022-12-15 10:30 | Outpatient (BNVA) | payer MEDICARE, SELFPAY | PROVIDERS: PCP Internal Medicine; Visit Provider Internal Medicine | DX: I48.20 Chronic atrial fibrillation, unspecified (principal); Z79.01 Long term (current) 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; Z51.81 Encounter for therapeutic drug level monitoring | CPT/HCPCS: 85610; 99211 ==

== ENCOUNTER 2022-12-15 11:07 | Outpatient (AMB) | payer MEDICARE, SELFPAY ==
--- NOTE | 2022-12-15 11:11 | A.OFFVIS_ITS ---
Intake Vital Signs 12/15/22 11:12 Height 5 ft 8 in Weight 211 lb 10.3 oz BMI 32.2 BP 110/62 Blood Pressure Location Lt brachial Position Sitting Pulse 62 Intake Visit Reasons: 4 week follow up Intake Note: 4 week follow-up had hip sugery c/o lot of leg swelling Mis Manager Required: No Chicken And Fish Butcher: Chicken And Fish Butcher Present Accompanied by: spouse and daughter Allergies No Known Allergies Allergy (Verified 12/15/22 10:30) Medication List - Last Reconciled 12/15/22 by Mateo Bird MD albuterol sulfate 90 mcg/actuation 1 inh inhalation QID PRN alcohol swabs pad topical ascorbic acid (vitamin C) 500 mg PO DAILY budesonide-formoterol 160-4.5 mcg/actuation 2 puffs PO BID digoxin 125 mcg PO DAILY 90 days diltiazem HCl ER 180 mg PO DAILY 90 days ezetimibe 10 mg PO DAILY ferrous sulfate 325 mg PO DAILY glipizide 10 mg PO DAILY lisinopril 2.5 mg PO DAILY metformin 500 mg PO BID [methylcobalamin 500 mcg PO DAILY] pravastatin 80 mg PO DAILY tiotropium bromide 18 mcg PO DAILY torsemide 40 mg PO DAILY vitamin B complex (B Complex-Vitamin B12 tablet) 1 tab PO DAILY warfarin 5 mg See Protocol PO DAILY warfarin 1 mg See Protocol PO DAILY HPI HPI Comments History of Present Illness Details Deny comes for follow-up. He said he has not had much response to increase diuretic dose. He was taking 60 mg of torsemide, currently taking 40 mg torsemide. Continues to bilateral significant leg swelling all the way up to the thighs, left greater than right. He denies any abdominal distension. However he says he has significant shortness of breath with exertion with minimal activity. He also cannot elevate his leg as he lays down he gets significantly short of breath. He denies any lightheadedness, syncope. No overt bleeding issues or neurologic events. [facility] Medical History Biatrial enlargement Chronic heart failure with preserved ejection fraction (HFpEF) CKD (chronic kidney disease) Diabetes mellitus HLD (hyperlipidemia) HTN (hypertension) Pulmonary hypertension Surgical History History of nephrectomy Hx of hernia repair Family History Father Cancer Mother No problems noted. Review of Systems Const Denies chills, Denies fatigue, Denies fever(s), Denies frequent falls, Denies weakness, Denies weight gain and Denies weight loss ENT Denies dizziness Card Denies chest pain, Denies leg edema, Denies lightheadedness, Denies palpitatio ns, Denies dyspnea, Denies dyspnea on exertion, Denies orthopnea and Denies other (loss of consciousness) Resp Denies cough, Denies dyspnea and Denies dyspnea on exertion GI Denies hematochezia and Denies change in stool character Musc Denies abnormal gait, Denies muscle weakness, Denies numbness, Denies radiating pain into limb and Denies tingling Neuro Denies abnormal gait, Denies dizziness, Denies frequent falls, Denies numbness, Denies tingling and Denies weakness Endo Denies fatigue and Denies palpitations Physical Exam Vital Signs: Last Vital Signs Pulse 62 12/15/22 11:12 BP 110/62 12/15/22 11:12 BMI result Body Mass Index 32.2 Const General: cooperative, comfortable, no acute distress, alert and awake Nutritional Appearance: obese Orientation/consciousness: patient oriented x3 Limitations: no limitations Neck Neck: Yes trachea midline, Yes supple and Yes JVD Resp Effort & Inspection: normal respiratory effort Auscultation: crackles (Coarse) bilateral, no rales, no wheezes and diminished lung sounds Cardio Jugular venous distension: JVD Rhythm: abnormal rhythm irregularly irregular Heart sounds: S1 normal heart sound present and S2 normal heart sound present GI Auscultation: normal bowel sounds Skin General skin exam: no rashes or lesions noted and ecchymosis Neuro General: patient oriented x3 and no focal motor deficits Extrem General: No clubbing, No cyanosis and Yes edema (Plus four bilaterally below knee) Psych Appearance: grossly normal Assessment & Plan Assessment & Plan (1) Decompensated heart failure: Code(s): I50.9 - Heart failure, unspecified Plan: Decompensated congestive heart failure in this elderly gentleman who has failed to respond oral diuretic therapy as outpatient. Although his BNP 4 weeks ago was within normal limits clinically appears to be in decompensated heart failure. He is not responding to oral torsemide therapy. I am therefore referring him to ED for IV diuresis. He is agreebable. ED sha been called. Would start him on IV lasix 5 mg/hr after lab work. (2) Chronic a-fib: Code(s): I48.20 - Chronic atrial fibrillation, unspecified Plan: Chronic atrial fibrillation, longstanding. Currently on dual rate control therapy. Rate is adequately controlled. Unfortunately has developed progressive heart failure syndrome. Continue full oral anticoagulation warfarin Will follow up in the clinic after discharge Coding Level of Care Code Est Pt Level 4 (77350) Diagnoses Decompensated heart failure I50.9 Chronic a-fib I48.20
[2022-12-15 11:12] VITALS: BP 110/62; PULSE 62; BMI 32.2
== END 2022-12-15 11:55 | disposition home or self-care (01) ==
PROVIDERS: PCP Internal Medicine; Visit Provider Internal Medicine Cardiovascular Disease
DX: I50.9 Heart failure, unspecified (principal); I48.20 Chronic atrial fibrillation, unspecified
CPT/HCPCS: 93010; 99214

== ENCOUNTER 2022-12-15 11:51 | Inpatient (IN) | payer MEDICARE, SELFPAY ==
--- NOTE | ~2022-12-15 | XR_ITS ---
EXAMINATION: XR CHEST CLINICAL INFORMATION: Line placement, NG tube in place COMPARISON: 12/15/2022 TECHNIQUE: Frontal view of the chest was obtained. FINDINGS: Enteric tube courses into the stomach. Lung volumes are symmetric. There is subsegmental atelectasis at the right lung base. No additional consolidation is seen. No evidence of pneumothorax, pleural effusion, or pulmonary edema. Cardiac silhouette appears near the upper limits of normal in size. Calcification is present at the aortic arch. No acute osseous findings are seen. XR/XR chest 1V IMPRESSION: Enteric tube courses into the stomach. Subsegmental right basilar atelectasis.
--- NOTE | ~2022-12-15 | XR_ITS ---
EXAMINATION: XR ABDOMEN KUB CLINICAL INDICATION: Follow up small bowel obstruction. COMPARISON: 12/21/2022 x-ray and CT abdomen. TECHNIQUE: 4 AP supine portable views of the abdomen. FINDINGS: Right total hip prosthesis. Vascular calcifications. Surgical clips right lower quadrant. Degenerative changes in the lower lumbar spine and left hip. The bones are diffusely demineralized. Moderate to large amount of stool throughout the colon. Prominent air-filled loops of small bowel are again demonstrated, although there has been interval decrease in small bowel prominence. Possible mural thickening along the small bowel wall. Evaluation for free air is limited due to supine positioning. XR/XR KUB IMPRESSION: Prominent air-filled loops of small bowel are again demonstrated, although there has been interval decrease in small bowel prominence. Differential considerations include possible obstruction or ileus. Possible mural thickening along the small bowel wall. Correlation with clinical exam and CT scan recommended to determine further management.
--- NOTE | ~2022-12-15 | XR_ITS ---
EXAMINATION: XR ABDOMEN KUB CLINICAL INDICATION: Distended abdomen COMPARISON: None available. TECHNIQUE: AP view of the abdomen. FINDINGS: There is prominent gaseous distention of bowel loops throughout the abdomen. This appears to involve predominantly small bowel, though some gaseous distention of colon is also present such as in the upper abdomen. Limited assessment for free air with supine positioning. Clips are noted in the right upper and lower abdomen. Included lung bases appear grossly well-aerated. Right hip arthroplasty hardware is partially visualized. XR/XR KUB IMPRESSION: Prominent gaseous distention of bowel loops, predominantly involving small bowel though portions of the colon are also distended. This may represent ileus in the proper clinical setting, though obstruction cannot be excluded.
--- NOTE | ~2022-12-15 | CT_ITS ---
EXAMINATION: CT ABDOMEN AND PELVIS WITHOUT CONTRAST CLINICAL INFORMATION: Question small bowel obstruction, abdominal distention and vomiting COMPARISON: Radiograph from the same day TECHNIQUE: Multidetector volumetric imaging was performed from the superior aspect of the liver through the pubic symphysis. Sagittal and coronal reformatted images were obtained on the technologist's workstation. This CT examination was performed using dose optimization techniques as appropriate, variously including the following: *Automated exposure control *Adjustment of mA and/or kV according to patient size (this includes techniques or standardized protocols for targeted exams where dose is matched to indication/reason for exam; i.e. extremities or head) *Use of iterative reconstruction technique DLP: 643 mGy-cm FINDINGS: LUNG BASES: There are bandlike regions of opacity at the lung bases more suggestive of atelectasis. Partially visualized heart appears enlarged. LIVER, GALLBLADDER, AND BILIARY TREE: The liver demonstrates a somewhat nodular contour. No focal hepatic lesion or biliary ductal dilatation is identified on this noncontrast exam. Tiny gallstones suspected in the gallbladder fundus. No significant gallbladder wall thickening. PANCREAS: Unremarkable. SPLEEN: Unremarkable. ADRENAL GLANDS: Left adrenal nodule measuring approximately 3.2 x 1.8 cm and 9 Hounsfield units. Left adrenal nodule measuring 2.9 x 1.5 cm and 1 Hounsfield unit. Adrenal nodules of any size exhibiting a CT density of =<10 HU are overwhelmingly likely to represent lipid rich benign adenomas for which no followup imaging is recommended. KIDNEYS AND URETERS: Right kidney is absent. No left hydronephrosis or obstructing calculus. A few left renal cysts are noted; no follow-up recommended. BLADDER: Unremarkable. GASTROINTESTINAL TRACT: There are mildly to moderately dilated fluid-filled and gas-filled proximal to mid small bowel loops. The more distal small bowel is collapsed. Transition from fluid-filled to collapsed small bowel appears to occur in the central to right abdomen on image 42/89 anterior to the IVC. Colonic diverticulosis is present, and there is gas and stool within much of the colon. The appendix is unremarkable. No free fluid or free air is seen. ABDOMINAL WALL: Small fat-containing inguinal hernias. LYMPH NODES: Normal. VASCULAR: There is atherosclerotic calcification along the aorta and iliac arteries. 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 Distal right common iliac artery aneurysm measuring approximately 2.6 cm. PELVIC VISCERA: Prostate gland is enlarged, measuring 5.6 cm in transverse dimension. OSSEOUS STRUCTURES: Degenerative changes are noted in the spine and left hip. Status post right total hip arthroplasty. CT/CT abdomen pelvis wo IV con IMPRESSION: 1. Dilated proximal to mid small bowel loops, with transition to collapsed small bowel in the central to right abdomen. Overall appearance is concerning for developing small bowel obstruction, though the possibility of an ileus is difficult to entirely exclude, as there is also gas and stool in the colon. Short-term radiographic follow-up is recommended. 2. 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 3. Nodular hepatic contour, raising concern for cirrhosis. 4. Cholelithiasis. 5. Enlarged prostate gland. 6. Bilateral adrenal nodules most consistent with adenomas as described above.
--- NOTE | ~2022-12-15 | CT_ITS ---
EXAMINATION: CT CHEST WITH CONTRAST CLINICAL INFORMATION: SOB, chest x-ray revealed question hilar adenopathy COMPARISON: Chest x-ray 12/15/2022 TECHNIQUE: Multidetector volumetric CT imaging of the chest was obtained after the administration of 50 mL of Omnipaque 350 intravenous contrast without immediate adverse reactions. Axial MIP volume rendering provided. Sagittal and coronal reformatted images were obtained. This CT examination was performed using dose optimization techniques as appropriate, variously including the following: *Automated exposure control *Adjustment of mA and/or kV according to patient size (this includes techniques or standardized protocols for targeted exams where dose is matched to indication/reason for exam; i.e. extremities or head) *Use of iterative reconstruction technique DLP: 322 mGy-cm FINDINGS: FLATWORK FEEDER: Well-expanded lungs. LUNGS: There is mild emphysematous changes of lungs without acute pneumonic process. There are no pulmonary nodules, mass or consolidation. Mild atelectatic changes are seen in lingula MEDIASTINUM: The thyroid lobes are symmetric and normal. The central trachea and the bronchi or widely patent. Heart size and the great vessels are normal caliber. There are numerous lymph nodes in the aortic window and pretracheal space. The hilar structures are normal. There is moderate coronary artery calcification present. PLEURA: There is no pleural effusion. No pleural mass or thickening. AXILLA: Small shotty lymph nodes are seen in the axilla. UPPER ABDOMEN: Visualized liver, spleen and pancreas appears unremarkable. There are bilateral adrenal lesions larger on the left measuring 3.4 x 2.3 cm. Right adrenal lesion measures 1.5 x 2.4 cm. OSSEOUS STRUCTURES: No aggressive lytic or sclerotic process seen. CT/CT chest w IV con IMPRESSION: 1. No abnormal mediastinal or axillary lymphadenopathy seen. No abnormality seen in either hilum. 2. Bilateral adrenal lesions, left greater than right. 3. Mild emphysematous changes in the lungs without acute pneumonic process. Fleischner guidelines were followed.
--- NOTE | ~2022-12-15 | XR_ITS ---
EXAMINATION: XR CHEST CLINICAL INFORMATION: Reason for Exam SOB COMPARISON: Chest radiograph 09/21/2017 TECHNIQUE: 2 views of the chest FINDINGS: Lines and tubes: None. Background of increased interstitial opacities. This can be seen acutely with bronchitis or viral pneumonia, chronically with chronic bronchitis or reactive airways disease. No pleural effusion. No pneumothorax. Bilateral hilar prominence with convex borders raising suspicion for hilar lymphadenopathy. XR/XR chest 2V IMPRESSION: 1. Bilateral hilar prominence with convex borders raising suspicion for hilar lymphadenopathy, recommend correlation with contrast-enhanced CT chest. 2. Background of increased interstitial opacities. This can be seen acutely with bronchitis or viral pneumonia, chronically with chronic bronchitis or reactive airways disease.
[2022-12-15 11:54] VITALS: BP 102/55; PULSE 70; RESP 18; TEMP 36.1; O2SAT 86; BMI 34.2
--- NOTE | 2022-12-15 11:54 | ED_ITS ---
HPI - General Adult General Chief complaint: Dyspnea Stated complaint: Heart Failure Time Seen by Provider: 12/15/22 17:36 Source: patient and family Mode of arrival: ambulatory History of Present Illness HPI narrative: 72-year-old male who presents with worsening shortness of breath, leg swelling and was referred into the hospital by Dr. Bird, his significant past medical history is CHF, COPD for which he uses 2 L of oxygen at home. Patient's symptoms have been occurring over the past 4 weeks. Related Data Home Medications Medication Instructions Recorded Confirmed ascorbic acid (vitamin C) 500 mg 500 mg PO DAILY 05/01/20 12/15/22 tablet budesonide-formoterol HFA 160 2 puff PO BID 05/01/20 12/15/22 mcg-4.5 mcg/actuation aerosol inhaler ezetimibe 10 mg tablet 10 mg PO DAILY 05/01/20 12/15/22 ferrous sulfate 325 mg (65 mg 325 mg PO DAILY 05/01/20 12/15/22 iron) tablet glipizide 10 mg tablet 10 mg PO DAILY 05/01/20 12/15/22 lisinopril 2.5 mg tablet 2.5 mg PO DAILY 05/01/20 12/15/22 metformin 500 mg tablet 500 mg PO BID 05/01/20 12/15/22 tiotropium bromide 18 mcg capsule 18 mcg PO DAILY 05/01/20 12/15/22 with inhalation device alcohol swabs pad topical 10/01/20 12/15/22 methylcobalamin 500 mcg PO DAILY 03/04/22 12/15/22 torsemide 20 mg tablet 40 mg PO DAILY 04/18/22 12/15/22 albuterol sulfate 90 mcg/actuation 1 inh inhalation QID PRN shortness 11/10/22 12/15/22 aerosol inhaler of breath or wheezing vitamin B complex (B 1 tab PO DAILY 11/20/22 12/15/22 Complex-Vitamin B12 tablet) Previous Rx's Medication Instructions Recorded warfarin 5 mg tablet 5 mg PO DAILY #90 tabs 03/13/20 diltiazem HCl 180 mg capsule,24 180 mg PO DAILY 90 days #90 caps 12/27/21 hr,extended release pravastatin 80 mg tablet 80 mg PO DAILY #90 tabs 03/11/22 warfarin 1 mg tablet 1 mg PO DAILY #90 tabs 11/10/22 digoxin 125 mcg (0.125 mg) tablet 125 mcg PO DAILY 90 days #90 tabs 12/08/22 Allergies Allergy/AdvReac Type Severity Reaction Status Date / Time No Known Allergies Allergy Verified 12/15/22 10:30 Review of Systems Review of Systems: Pertinent positives and negatives as stated in HPI [facility] Past Medical History Source: nursing notes reviewed Medical History Biatrial enlargement Chronic heart failure with preserved ejection fraction (HFpEF) CKD (chronic kidney disease) Diabetes mellitus HLD (hyperlipidemia) HTN (hypertension) Pulmonary hypertension Surgical History History of nephrectomy Hx of hernia repair Family History Family History Father Cancer Mother No problems noted. Social History Social History Smoked in Last 30 Days: No Use of substances other than those prescribed or required for medical reasons: No Advance Directives: No Advance Directives Information Provided: Yes Physical Exam ED Vital Signs: Vital Signs - 24 hr 12/15/22 11:54 12/15/22 17:26 12/15/22 17:32 Temperature 96.9 F 97.9 F 97.9 F Pulse Rate 70 61 74 Respiratory Rate 18 18 17 Blood Pressure 102/55 L 116/47 L 116/47 L Pulse Oximetry 86 L 98 90 L Oxygen Delivery Method Room Air Room Air Nasal Cannula Oxygen Flow Rate 2 12/15/22 17:57 Temperature Pulse Rate 60 Respiratory Rate 18 Blood Pressure Pulse Oximetry Oxygen Delivery Method Oxygen Flow Rate BMI result Body Mass Index 34.2 VITAL SIGNS: Reviewed. GENERAL: Chronically ill, elevated BMI, in no acute distress. HEAD: Normocephalic/atraumatic EYES: PERRLA, EOMI EARS: Ext canals without abnormality NOSE: Nares patent bilateral OROPHARYNX: no oral lesions noted, posterior pharynx clear NECK: Supple, no adenopathy LUNGS: Patient is mildly tachypneic but there are no appreciable rales, rhonchi or expiratory wheeze noted. SpO2<90> on 2 L via nasal cannula CARDIOVASCULAR: Regular rate and rhythm without noted murmurs, no JVD but bilateral 2 to 3+ pitting edema ABDOMEN: Soft, non-tender, non-distended with bowel sounds. MUSCULOSKELETAL: No tenderness, deformities, or effusions noted on gross inspection. EXTREMITIES: No cyanosis, clubbing or edema; BILATERAL LOWER EXTREMITIES: There is 2 to 3+ pitting edema but there is also significant skin thickening and color change to suggest a component of chronic venous stasis. SKIN: Inspection of the skin reveals no rashes NEUROLOGIC: Alert and oriented x 4. Strength and sensation to light touch were grossly intact x 4. Course Course Course Narrative: This is an RME: Additional HPI, ROS, PE not included below will be deferred to primary provider. This is a [id number]-bka-male, hx of chronic heart failure with preserved ejection fracture, CKD, DM, HLD, HTN, pulmonary hypertension, and COPD on 2L of O2, presenting to the ER with compalints of worsening dyspnea with exertion x [address] Bird called in expect for decompenstated heart failure, needs to be admitted with IV diuretics. Was increased from toursemide 40 >60mg 4 weeks ago without any relief. Recommends lasix drips 5mg/hour. No current CP. O2 saturation 88% on room air - pt presents to ER without o2, placed on 2L nasal cannula in department. Plan: Labs, EKG, Chest x-ray Medications Administered Discontinued Medications Generic Name Dose Route Start Last Admin Trade Name Freq PRN Reason Stop Dose Admin Albuterol/Ipratropium 3 ml 12/15/22 17:46 12/15/22 17:57 Albuterol/Iprat 2.5/0.5mg 3 Ml Ampul.Neb INHALE 12/15/22 17:47 3 ml ONCE ONE Administration Iohexol 100 ml 12/15/22 18:41 12/15/22 18:42 Iohexol 350 Mg/Ml 100 Ml Infus..Btl IV 12/15/22 18:42 65 ml ONCE ONE Administration Medical Decision Making Medical Decision Making MDM Narrative: 1800:72-year-old male with history of CHF and chronic lung disease is referred in by Cardiology, Dr. Bird for suspected CHF exacerbation. DDX: Viral, pneumonia, CHF, chronic lung disease. At this time I interpretation is patient may have a viral illness after review of all lab work and based off of clinical exam which demonstrated very little evidence for CHF exacerbation as I feel that patient's persistent bilateral lower leg swelling is combination of venous stasis as well as CHF. There are no rales, chest x-ray showed findings suggestive possible viral infection, will proceed with viral testing. In addition, there is highly are adenopathy of unclear etiology but would further support the possibility of viral infection. I reviewed all investigations and hematologic indices do not demonstrate a leukocytosis but there is a mild left shift, no thrombocytopenia and patient's anemia appears to be chronically stable and macrocytic in nature. Chemistry indices are negative for RAHEEM, electrolyte abnormalities, BNP is not reflective of fluid overload status which further supports clinical exam. EKG is rate controlled atrial fibrillation and high sensitivity troponin levels although detectable are not significantly elevated and patient does not have chest pain. INR is noted to be within therapeutic range. My interpretation is this is likely a viral pneumonia, but patient also had positive COVID exposure from family member at bedside. I do not suspect chronic lung disease issues. However, patient is tachypneic and this is been ongoing for a approximate month. 1846: I ordered a VBG and pCO2 is noted to be elevated without acidosis and at this time will treat for COPD exacerbation with nebulized treatments as well as steroids and antibiotics. I discussed with the inpatient hospitalist who will coordinate with the slot shift supervisor for admission. Differential Diagnosis Differential Diagnoses: The differential diagnosis associated with the presentation includes Please see the discussion above Admission/Observation Consideration of admission/observation: Escalation of care including admission/observation considered Please see the discussion above Consult Healthcare Provider Management of the patient was discussed with: Hospitalist Please see the discussion above Lab Data MDM Lab Attestation statement: I reviewed the patient's lab results. Please see the discussion above 12/15/22 12:07 12/15/22 12:07 Labs: Lab Results 12/15/22 12/15/22 12/15/22 Range/Units 12:07 12:07 12:07 WBC 8.0 (4.8-10.8) X10*3/uL RBC 3.06 L (4.60-5.80) X10*6/uL Hgb 9.4 L (14.0-18.0) g/dl Hct 31.7 L (42.0-52.0) % MCV 103.6 H (80.0-98.0) fL MCH 30.7 (27.0-33.0) pg MCHC 29.7 L (31.0-36.0) g/dl RDW 18.1 H (11.0-16.0) % Plt Count 256 (160-400) X10*3/uL MPV 9.9 (9.4-12.4) fL Immature Gran % (Auto) 0.4 (0.0-0.4) % Neut % (Auto) 73.4 H (45-73) % Lymph % (Auto) 12.4 L (20-40) % [place] % (Auto) 8.5 (2-11) % Eos % (Auto) 5.0 H (0-4) % Baso % (Auto) 0.3 (0-2) % Lymph # (Auto) 1.0 L (1.2-4.9) X10*3/uL [place] # (Auto) 0.7 (0.1-1.2) X10*3/uL Eos # (Auto) 0.4 (0.0-0.4) X10*3/uL Baso # (Auto) 0.0 (0.0-0.2) X10*3/uL Abs Immat Gran (auto) 0.03 (0.00-0.03) X10*3/uL Absolute Neuts (auto) 5.9 (2.0-8.3) x10*3/uL Absolute Nucleated RBC 0.000 (0.0-0.012) X10*3/uL Nucleated RBC % (auto) 0.0 (0.0-0.2) /100WBC VBG pH (7.32-7.43) VBG pCO2 mmHg VBG pO2 mmHg VBG HCO3 (22-26) mmol/L VBG O2 Saturation % VBG Base Excess mmol/L Sodium 142 (135-145) mmol/L Potassium 4.2 (3.3-5.1) mmol/L Chloride 98 (96-108) mmol/L Carbon Dioxide 35 H (22-29) mmol/L Anion Gap 13 (12-20) BUN 16 (9-16) mg/dL Creatinine 1.39 (0.5-1.4) mg/dL Estim Creat Clear Calc 51.3 Estimated GFR 50 Random Glucose 126 H (60-115) mg/dL Calcium 9.4 D (8.4-10.2) mg/dL Magnesium 2.4 (1.6-2.6) mg/dL Total Bilirubin 0.5 (0.0-1.0) mg/dL Direct Bilirubin 0.3 (0.0-0.5) mg/dL AST 23 (5-37) U/L ALT 12 (0-40) U/L Alkaline Phosphatase 67 (39-117) U/L Troponin I High Sens 8.5 (<3.5-35.0) ng/L B-Natriuretic Peptide (<100) pg/mL Total Protein 6.7 (6.5-8.0) g/dL Albumin 3.6 (3.5-5.0) g/dL COVID-19 ([facility]) (Negative) COVID-19 Clin Com Influenza Type A (PCR) (Negative) Influenza Type B (PCR) (Negative) RSV RNA Qual (PCR) (Negative) SARS-CoV-2 RNA (RT-PCR) (Negative) 12/15/22 12/15/22 12/15/22 Range/Units 12:07 12:07 17:52 WBC (4.8-10.8) X10*3/uL RBC (4.60-5.80) X10*6/uL Hgb (14.0-18.0) g/dl Hct (42.0-52.0) % MCV (80.0-98.0) fL MCH (27.0-33.0) pg MCHC (31.0-36.0) g/dl RDW (11.0-16.0) % Plt Count (160-400) X10*3/uL MPV (9.4-12.4) fL Immature Gran % (Auto) (0.0-0.4) % Neut % (Auto) (45-73) % Lymph % (Auto) (20-40) % [place] % (Auto) (2-11) % Eos % (Auto) (0-4) % Baso % (Auto) (0-2) % Lymph # (Auto) (1.2-4.9) X10*3/uL [place] # (Auto) (0.1-1.2) X10*3/uL Eos # (Auto) (0.0-0.4) X10*3/uL Baso # (Auto) (0.0-0.2) X10*3/uL Abs Immat Gran (auto) (0.00-0.03) X10*3/uL Absolute Neuts (auto) (2.0-8.3) x10*3/uL Absolute Nucleated RBC (0.0-0.012) X10*3/uL Nucleated RBC % (auto) (0.0-0.2) /100WBC VBG pH (7.32-7.43) VBG pCO2 mmHg VBG pO2 mmHg VBG HCO3 (22-26) mmol/L VBG O2 Saturation % VBG Base Excess mmol/L Sodium (135-145) mmol/L Potassium (3.3-5.1) mmol/L Chloride (96-108) mmol/L Carbon Dioxide (22-29) mmol/L Anion Gap (12-20) BUN (9-16) mg/dL Creatinine (0.5-1.4) mg/dL Estim Creat Clear Calc Estimated GFR Random Glucose (60-115) mg/dL Calcium (8.4-10.2) mg/dL Magnesium (1.6-2.6) mg/dL Total Bilirubin (0.0-1.0) mg/dL Direct Bilirubin (0.0-0.5) mg/dL AST (5-37) U/L ALT (0-40) U/L Alkaline Phosphatase (39-117) U/L Troponin I High Sens (<3.5-35.0) ng/L B-Natriuretic Peptide 78 (<100) pg/mL Total Protein (6.5-8.0) g/dL Albumin (3.5-5.0) g/dL COVID-19 ([facility]) Negative (Negative) COVID-19 Clin Com See Note Influenza Type A (PCR) NEGATIVE (Negative) Influenza Type B (PCR) NEGATIVE (Negative) RSV RNA Qual (PCR) NEGATIVE (Negative) SARS-CoV-2 RNA (RT-PCR) NEGATIVE (Negative) 12/15/22 Range/Units 18:17 WBC (4.8-10.8) X10*3/uL RBC (4.60-5.80) X10*6/uL Hgb (14.0-18.0) g/dl Hct (42.0-52.0) % MCV (80.0-98.0) fL MCH (27.0-33.0) pg MCHC (31.0-36.0) g/dl RDW (11.0-16.0) % Plt Count (160-400) X10*3/uL MPV (9.4-12.4) fL Immature Gran % (Auto) (0.0-0.4) % Neut % (Auto) (45-73) % Lymph % (Auto) (20-40) % [place] % (Auto) (2-11) % Eos % (Auto) (0-4) % Baso % (Auto) (0-2) % Lymph # (Auto) (1.2-4.9) X10*3/uL [place] # (Auto) (0.1-1.2) X10*3/uL Eos # (Auto) (0.0-0.4) X10*3/uL Baso # (Auto) (0.0-0.2) X10*3/uL Abs Immat Gran (auto) (0.00-0.03) X10*3/uL Absolute Neuts (auto) (2.0-8.3) x10*3/uL Absolute Nucleated RBC (0.0-0.012) X10*3/uL Nucleated RBC % (auto) (0.0-0.2) /100WBC VBG pH 7.39 (7.32-7.43) VBG pCO2 68 mmHg VBG pO2 35 mmHg VBG HCO3 41 H (22-26) mmol/L VBG O2 Saturation 49.0 % VBG Base Excess 14.3 mmol/L Sodium (135-145) mmol/L Potassium (3.3-5.1) mmol/L Chloride (96-108) mmol/L Carbon Dioxide (22-29) mmol/L Anion Gap (12-20) BUN (9-16) mg/dL Creatinine (0.5-1.4) mg/dL Estim Creat Clear Calc Estimated GFR Random Glucose (60-115) mg/dL Calcium (8.4-10.2) mg/dL Magnesium (1.6-2.6) mg/dL Total Bilirubin (0.0-1.0) mg/dL Direct Bilirubin (0.0-0.5) mg/dL AST (5-37) U/L ALT (0-40) U/L Alkaline Phosphatase (39-117) U/L Troponin I High Sens (<3.5-35.0) ng/L B-Natriuretic Peptide (<100) pg/mL Total Protein (6.5-8.0) g/dL Albumin (3.5-5.0) g/dL COVID-19 ([facility]) (Negative) COVID-19 Clin Com Influenza Type A (PCR) (Negative) Influenza Type B (PCR) (Negative) RSV RNA Qual (PCR) (Negative) SARS-CoV-2 RNA (RT-PCR) (Negative) Independent Interpretation I performed an independent interpretation of an: EKG Interpretation: Atrial fibrillation, HR-66, no STEMI, QRS/QTC are within normal limits. Radiology Impression Discussion of test interpretation with radiology: I discussed test interpretation with the radiologist Radiologist Impression: Increased interstitial opacities, bilateral hilar prominence and my interpretation further agrees with radiology's impression. External Record Review External record reviewed: Outpatient record and Prior outpatient labs Chronic Conditions Patient?s care impacted by: Diabetes and Hypertension Critical Care Time Critical Care Time Critical Care Time: Yes Total Critical Care Time: 45 Attestation: I personally attest to this time spent taking care of the patient. Discharge Plan Discharge Clinical Impression: Viral pneumonia, Shortness of breath at rest, Hilar adenopathy, COPD exacerbation, CHF (congestive heart failure) Patient Disposition: Admitted As Inpatient
--- NOTE | 2022-12-15 11:57 | ECG_ITS ---
Test Reason : sob Blood Pressure : / mmHG Vent. Rate : 066 BPM Atrial Rate : 000 BPM P-R Int : 000 ms QRS Dur : 106 ms QT Int : 438 ms P-R-T Axes : 000 036 -09 degrees QTc Int : 459 ms Atrial fibrillation Nonspecific ST and T wave abnormality Abnormal ECG When compared with ECG of 01-OCT-2022 10:54, No significant change was found Referred By: Cristy Burciaga Electronically Signed By:Brandt Morrell
[2022-12-15 12:22] LABS: MANUAL DIFF FLAG NO
[2022-12-15 12:25] LABS: Basophils Percent Auto 0.3 % (0-2); Eosinophils Absolute Auto 0.4 X10*3/uL (0.0-0.4); Hematocrit 31.7 % (42.0-52.0); Hemoglobin 9.4 g/dl (14.0-18.0); Imm Gran Abs Auto 0.03 X10*3/uL (0.00-0.03); Imm Gran Pct Auto 0.4 % (0.0-0.4); Lymphocytes Percent Auto 12.4 % (20-40); Mean Corpuscular HGB Conc 29.7 g/dl (31.0-36.0); Mean Corpuscular Hemoglobin 30.7 pg (27.0-33.0); Mean Corpuscular Volume 103.6 fL (80.0-98.0); Mean Platelet Volume 9.9 fL (9.4-12.4); Monocytes Absolute Auto 0.7 X10*3/uL (0.1-1.2); Monocytes Percent Auto 8.5 % (2-11); Neutrophils Absolute Auto 5.9 x10*3/uL (2.0-8.3); Neutrophils Percent Auto 73.4 % (45-73); Platelet Count 256 X10*3/uL (160-400); Red Blood Count 3.06 X10*6/uL (4.60-5.80); Red Cell Distribution Width 18.1 % (11.0-16.0)
[2022-12-15 12:39] LABS: Alanine Aminotransferase 12 U/L (0-40); Albumin Level 3.6 g/dL (3.5-5.0); Alkaline Phosphatase 67 U/L (39-117); Anion Gap 13 (12-20); Aspartate Amino Transferase 23 U/L (5-37); Bilirubin Direct 0.3 mg/dL (0.0-0.5); Bilirubin Total 0.5 mg/dL (0.0-1.0); Blood Urea Nitrogen 16 mg/dL (9-16); Calcium 9.4 mg/dL (8.4-10.2); Carbon Dioxide 35 mmol/L (22-29); Chloride 98 mmol/L (96-108); Creatinine Clr Calc Pharmacy 51.3; Estimated Glomerular Filt Rate 50; Glucose Random 126 mg/dL (60-115); Magnesium 2.4 mg/dL (1.6-2.6); Potassium 4.2 mmol/L (3.3-5.1); Sodium 142 mmol/L (135-145); Total Protein 6.7 g/dL (6.5-8.0)
[2022-12-15 12:42] LABS: COVID-19 Test Negative (Negative); IDNOW Serial# 08D9AD1C
[2022-12-15 12:44] LABS: Troponin-I High Sensitivity 8.5 ng/L (<3.5-35.0)
[2022-12-15 12:49] LABS: B Type Natriuretic Peptide 78 pg/mL (<100)
[2022-12-15 17:26] VITALS: BP 116/47; PULSE 61; RESP 18; TEMP 36.6; O2SAT 98
[2022-12-15 17:32] VITALS: BP 116/47; PULSE 74; RESP 17; TEMP 36.6; O2SAT 90
[2022-12-15 17:57] VITALS: PULSE 60; RESP 18; O2SAT 93
[2022-12-15] MEDS: Albuterol/Iprat 2.5/0.5MG 3 ML AMPUL.NEB INHALE (17:57)
[2022-12-15 18:25] LABS: VBG Base Excess 14.3 mmol/L; VBG HCO3 41 mmol/L (22-26); VBG pCO2 68 mmHg; VBG pH 7.39 (7.32-7.43); VBG pO2 35 mmHg
[2022-12-15 18:26] LABS: Venous Blood Gas Refer to POC result
[2022-12-15] MEDS: iohexoL 350 MG/ML 100 ML INFUS..BTL IV (18:42)
[2022-12-15 18:48] LABS: Influenza A PCR NEGATIVE (Negative); Influenza B PCR NEGATIVE (Negative); Resp Syncy Virus RNA Qual PCR NEGATIVE (Negative); SARS COV2 PCR INHOUSE NEGATIVE (Negative)
--- NOTE | 2022-12-15 19:05 | PM.IMHP ---
History of Present Illness Date of Service: 12/15/22 Chief Complaint: Dyspnea This is a 72-year-old male with pertinent history of chronic atrial fibrillation on anticoagulation, essential hypertension, congestive heart failure with preserved ejection fraction, venous stasis, mixed hyperlipidemia, dpw-emqafix-imtbypikv diabetes mellitus, chronic hypoxemic respiratory failure due to COPD who presents to the emergency department for evaluation of dyspnea. Patient states he has been having dyspnea, worse with exertion for the last few weeks. Also reports bilateral leg swelling without pain. Admits orthopnea and PND. Patient saw his superintendent transportation today, Dr. Bird. He was sent by Cardiology for IV diuresis for decompensation of compensated heart failure and failure of p.o. diuretics. He denies fever, chills, productive cough. His recently had COVID-19 pneumonia recently. No chest discomfort, palpitations, abdominal pain, changes in urinary or bowel habits. In the emergency department, patient with dyspnea on home supplemental oxygen. Review of Systems Constitutional: Constitutional: Reports fatigue and Reports malaise Cardiovascular: Cardiovascular: Reports dyspnea on exertion and Reports orthopnea Respiratory: Respiratory: Reports dyspnea on exertion Gastrointestinal: Gastrointestinal: Reports no additional gastrointestinal complaints Genitourinary: Genitourinary: Reports no additional male genitourinary complaints Endocrine: Endocrine: Reports fatigue PMFSH Medical History Biatrial enlargement Chronic heart failure with preserved ejection fraction (HFpEF) CKD (chronic kidney disease) Diabetes mellitus HLD (hyperlipidemia) HTN (hypertension) Pulmonary hypertension Family History Father Cancer Mother No problems noted. Surgical History History of nephrectomy Hx of hernia repair Social History Patient Tobacco Use Status: Former Tobacco user Smoked in Last 30 Days: No Use of substances other than those prescribed or required for medical reasons: No Advance Directives: No Advance Directives Information Provided: Yes Nutrition Risks: Dental problems and Difficulty chewing Meds Allergies Allergy/AdvReac Type Severity Reaction Status Date / Time No Known Allergies Allergy Verified 12/15/22 10:30 Active Medications: Current Medications Piperacillin Sod/Tazobactam (Sod 3.375 gm/ Sodium Chloride) 50 mls @ 100 mls/hr IV ONCE ONE Stop: 12/15/22 19:14 Pharmacy Consult (Consult Rx Perform Med Rec) 1 each MISCELLANE ONCE PRN PRN Reason: Consult order Home Medications Medication Instructions Recorded Confirmed Last Taken Type ascorbic acid (vitamin C) 500 mg 500 mg PO DAILY 05/01/20 12/15/22 12/15/22 History tablet budesonide-formoterol HFA 160 2 puff PO BID 05/01/20 12/15/22 12/15/22 History mcg-4.5 mcg/actuation aerosol inhaler ezetimibe 10 mg tablet 10 mg PO DAILY 05/01/20 12/15/22 12/15/22 History ferrous sulfate 325 mg (65 mg 325 mg PO DAILY 05/01/20 12/15/22 12/15/22 History iron) tablet metformin 500 mg tablet 500 mg PO BIDWM 05/01/20 12/15/22 12/15/22 History tiotropium bromide 18 mcg capsule 18 mcg PO DAILY 05/01/20 12/15/22 12/15/22 History with inhalation device alcohol swabs pad topical 10/01/20 12/15/22 Unknown History torsemide 20 mg tablet 40 mg PO DAILY 04/18/22 12/15/22 12/15/22 History albuterol sulfate 90 mcg/actuation 1 inh inhalation QID PRN shortness 11/10/22 12/15/22 12/15/22 History aerosol inhaler of breath or wheezing cyanocobalamin (vitamin B-12) 1,000 mcg PO DAILY 12/15/22 12/15/22 12/15/22 History 1,000 mcg tablet digoxin 125 mcg (0.125 mg) tablet 125 mcg PO BEDTIME 12/15/22 12/15/22 12/15/22 History doxycycline hyclate 100 mg capsule 100 mg PO BID 12/15/22 12/15/22 12/15/22 History pravastatin 80 mg tablet 80 mg PO BEDTIME 12/15/22 12/15/22 12/15/22 History warfarin 5 mg tablet 5 mg PO MOWEFR@1800 12/15/22 Unknown History Physical Exam Vital Signs and Narrative: Vital Signs: Last Vital Signs Temp 97.9 F 12/15/22 17:32 Pulse 60 12/15/22 17:57 Resp 18 12/15/22 17:57 BP 116/47 L 12/15/22 17:32 Pulse Ox 90 L 12/15/22 17:32 O2 Del Method Nasal Cannula 12/15/22 17:32 O2 Flow Rate 2 12/15/22 17:32 BMI result Body Mass Index 34.2 Elderly male lying in bed in mild distress on supplemental oxygen Neck supple Irregularly irregular, S1-S2 heard Bilateral crackles present Abdomen soft nontender, no guarding, no rigidity Patient is awake, alert and oriented to self, place, time and person ; no focal motor deficit Psych: Normal mood Bilateral pitting edema present Results Labs 12/15/22 12:07 12/15/22 12:07 Labs: Laboratory Results - last 24 hr 12/15/22 12/15/22 12/15/22 12:07 12:07 12:07 MCV 103.6 H MCH 30.7 MCHC 29.7 L RDW 18.1 H Plt Count 256 MPV 9.9 Immature Gran % (Auto) 0.4 Neut % (Auto) 73.4 H Lymph % (Auto) 12.4 L [place] % (Auto) 8.5 Eos % (Auto) 5.0 H Baso % (Auto) 0.3 Lymph # (Auto) 1.0 L [place] # (Auto) 0.7 Eos # (Auto) 0.4 Baso # (Auto) 0.0 Abs Immat Gran (auto) 0.03 Absolute Neuts (auto) 5.9 Absolute Nucleated RBC 0.000 Nucleated RBC % (auto) 0.0 VBG pH VBG pCO2 VBG pO2 VBG HCO3 VBG O2 Saturation VBG Base Excess Anion Gap 13 Estim Creat Clear Calc 51.3 Estimated GFR 50 Random Glucose 126 H Calcium 9.4 D Magnesium 2.4 Total Bilirubin 0.5 Direct Bilirubin 0.3 AST 23 ALT 12 Alkaline Phosphatase 67 Troponin I High Sens 8.5 B-Natriuretic Peptide Total Protein 6.7 Albumin 3.6 COVID-19 ([facility]) COVID-19 Clin Com Influenza Type A (PCR) Influenza Type B (PCR) RSV RNA Qual (PCR) SARS-CoV-2 RNA (RT-PCR) 12/15/22 12/15/22 12/15/22 12:07 12:07 17:52 MCV MCH MCHC RDW Plt Count MPV Immature Gran % (Auto) Neut % (Auto) Lymph % (Auto) [place] % (Auto) Eos % (Auto) Baso % (Auto) Lymph # (Auto) [place] # (Auto) Eos # (Auto) Baso # (Auto) Abs Immat Gran (auto) Absolute Neuts (auto) Absolute Nucleated RBC Nucleated RBC % (auto) VBG pH VBG pCO2 VBG pO2 VBG HCO3 VBG O2 Saturation VBG Base Excess Anion Gap Estim Creat Clear Calc Estimated GFR Random Glucose Calcium Magnesium Total Bilirubin Direct Bilirubin AST ALT Alkaline Phosphatase Troponin I High Sens B-Natriuretic Peptide 78 Total Protein Albumin COVID-19 ([facility]) Negative COVID-19 Clin Com See Note Influenza Type A (PCR) NEGATIVE Influenza Type B (PCR) NEGATIVE RSV RNA Qual (PCR) NEGATIVE SARS-CoV-2 RNA (RT-PCR) NEGATIVE 12/15/22 18:17 MCV MCH MCHC RDW Plt Count MPV Immature Gran % (Auto) Neut % (Auto) Lymph % (Auto) [place] % (Auto) Eos % (Auto) Baso % (Auto) Lymph # (Auto) [place] # (Auto) Eos # (Auto) Baso # (Auto) Abs Immat Gran (auto) Absolute Neuts (auto) Absolute Nucleated RBC Nucleated RBC % (auto) VBG pH 7.39 VBG pCO2 68 VBG pO2 35 VBG HCO3 41 H VBG O2 Saturation 49.0 VBG Base Excess 14.3 Anion Gap Estim Creat Clear Calc Estimated GFR Random Glucose Calcium Magnesium Total Bilirubin Direct Bilirubin AST ALT Alkaline Phosphatase Troponin I High Sens B-Natriuretic Peptide Total Protein Albumin COVID-19 ([facility]) COVID-19 Clin Com Influenza Type A (PCR) Influenza Type B (PCR) RSV RNA Qual (PCR) SARS-CoV-2 RNA (RT-PCR) Imaging Radiologist's Impressions: Impressions Chest X-Ray 12/15/22 12:55 IMPRESSION: 1. Bilateral hilar prominence with convex borders raising suspicion for hilar lymphadenopathy, recommend correlation with contrast-enhanced CT chest. 2. Background of increased interstitial opacities. This can be seen acutely with bronchitis or viral pneumonia, chronically with chronic bronchitis or reactive airways disease. Assessment and Plan (1) CHF (congestive heart failure): Status: Acute Plan This is a 72-year-old male with pertinent history of chronic atrial fibrillation on anticoagulation, essential hypertension, congestive heart failure with preserved ejection fraction, venous stasis, mixed hyperlipidemia, ajg-phprkpr-bvmevxcsh diabetes mellitus, chronic hypoxemic respiratory failure due to COPD who presents to the emergency department for evaluation of dyspnea. #. Acute respiratory distress on chronic hypoxemic respiratory failure, due to decompensated congestive heart failure (unspecified ejection fraction). Will admit patient and initiate IV diuresis. Reviewed Cardiology note from today and will initiate patient on IV Lasix drip. Obtaining echocardiogram and maintain strict I's and O's. CT chest pending. #. Macrocytic anemia. Check B12 and folate #. Chronic atrial fibrillation. Rate controlled at the time of admission. Continue Coumadin and digoxin #. Mixed hyperlipidemia. Continue ezetimibe and statin #. Zcx-jnaqcpo-eyudjkwmw diabetes mellitus. Hold metformin. Initiating Accu-Cheks with sliding scale insulin #. Essential hypertension. Continue lisinopril #. COPD. Continue home inhaler. Med rec pending DVT prophylaxis: On Coumadin Full code Cardiac diet Admit as inpatient and will require two night minimum hospital stay for IV diuresis Time Spent With Patient Time: Total time managing care of this patient today ____ minutes. Quality Stroke Does the patient have a stroke diagnosis?: No VTE Prior VTE?: No VTE Risk Level:: Medical - moderate - high VTE Device Contraindication: Treatment Not Indicated VTE Drug Contraindication: N/A - Med Ordered
[2022-12-15 19:13] VITALS: BP 112/43; PULSE 74; RESP 14; TEMP 36.7; O2SAT 91
[2022-12-15] MEDS: methylPREDNISolone Sod Succ 125 MG/2 ML VIAL IVPUSH (19:21)
[2022-12-15] MEDS: Furosemide 100 MG/10 ML VIAL 60 MG IVPUSH (19:21)
[2022-12-15] MEDS: Piperacillin Sodium/Tazobactam 3.375 GM in 0.9 % Sodium Chloride 50 ML IV (19:25)
[2022-12-15 19:42] LABS: Lactic Acid 1.1 mmol/L (0.5-2.0)
[2022-12-15 21:34] LABS: Glucose, Whole Blood 146 mg/dL (60-115)
[2022-12-15 21:55] LABS: Folate 11.5 ng/mL (> or = 4.0); Vitamin B12 1628 pg/mL (200-900)
[2022-12-15] MEDS: Furosemide 200 MG in 0.9 % Sodium Chloride 80 ML IVCONT (21:56)
[2022-12-16] VITALS (11 sets, daily range): BP systolic 108–129; BP diastolic 50–71; PULSE 62–89; RESP 16–20; TEMP 36–37.1; O2SAT 86–97; BMI 34.2
--- NOTE | 2022-12-16 00:21 | MHC.EDTECH ---
patient had urinated 600cc of urine and another 300cc as i was walking in the room. Belongings list done for admission,pt has a room assignment, awaiting for nurse to nurse report at this time.
--- NOTE | 2022-12-16 07:00 | CA_ITS ---
Transthoracic Echocardiogram Patient (Last, First, Middle): Kiran Law, Gender: Male Date of : 1950 Age: 72 Procedure Date: 12/16/2022 Procedure Type: Transthoracic Echocardiogram Location: [facility] [place] Height: 167.64 cm Weight: 95.71 kg BSA: 2.05 m2 Heart Rate: 107 bpm BP: 118 / 71 mmHg Groover And Turner: SB Referring MD: Rosa Maciel MD Symptoms: CHF Study Quality: Adequate ECG Rhythm: Atrial Fibrillation w RVR Conclusions: - Normal left ventricular size, thickness, and systolic function. The visually estimated ejection fraction is between 65-70%. There is no evidence of regional wall motion abnormalities. - Moderately increased right ventricular cavity size. There is normal right ventricular systolic function. - The left atrium is severely dilated. The right atrium is severely dilated. - There is moderate tricuspid valve regurgitation. The right ventricular systolic pressure is 56 mmHg. Significantly elevated right atrial pressure. Moderate to severe pulmonary hypertension is present. Findings Left Ventricle Normal left ventricular size, thickness, and systolic function. The visually estimated ejection fraction is between 65-70%. There is no evidence of regional wall motion abnormalities. Diastolic function is indeterminate on the basis of available data. Right Ventricle Moderately increased right ventricular cavity size. There is normal right ventricular systolic function. Atria The left atrium is severely dilated. The right atrium is severely dilated. Aortic Valve The aortic valve was not well visualized. There is no aortic valve stenosis. There is trace (trivial) aortic valve regurgitation. Mitral Valve Normal mitral valve structure and function. There is no mitral valve regurgitation. There is no mitral valve stenosis. Pulmonic Valve The pulmonic valve is likely normal. Tricuspid Valve Normal tricuspid valve structure. There is moderate tricuspid valve regurgitation. The right ventricular systolic pressure is 56 mmHg. Significantly elevated right atrial pressure. Moderate to severe pulmonary hypertension is present. Great Vessels There is mild dilatation of the sinuses of Valsalva measuring 3.70 cm. The visualized portions of the pulmonary artery and branches are normal. Venous The inferior vena cava is dilated and collapses less than 50% with inspiration. Pericardium/Pleural There is no evidence of pericardial effusion. Prior Study Comparison Changes noted compared to prior study dated: 01/06/2022. Elevated RA pressures, mod to severe pulm HTN. Measurements 2D Linear Measurements IVSd: 0.90 0.6-0.9/0.6-1.0 cm LVIDd: 6.00 3.9-5.3/4.2-5.9 cm LVIDd Index: 2.93 2.4-3.2/2.2-3.1 cm/m2 LVIDs: 4.30 2.0-3.6 cm LVPWd: 0.90 0.7-1.1 cm LA Diam: 4.60 2.7-3.8/3.0-4.0 cm LAIDs Index: 2.24 1.5-2.3 cm/m2 LV Mass: 268.89 67-162/88-224 g LV Mass Index: 131.17 43-95/49-115 g/m2 LVOT Diam: 2.40 3.0+(-)1.3 cm 2D Systolic Function EF 4C: 76.20 >55% EF 2C: 62.90 >55% EF BiP: 70.10 >55% Mitral Valve MV Pk E: 1.13 E'Lateral: 12.20 E'Medial: 10.20 E/E' Med: 11.10 E/E' Lat: 9.30 Aortic Valve AoV Pk Bora: 1.77 AoV Pk Grad: 13.00 MARY: 2.90 LVOT LVOT Pk Bora: 1.14 LVOT Mn Bora: 0.96 LVOT VTI: 0.25 LVOT Pk Grad: 5.00 LVOT Mn Grad: 4.00 LVOT Diam: 2.40 LVOT Area: 4.52 Diastolic Function MV Pk E: 1.13 E'Medial: 10.20 E/E' Med: 11.10 E' Laterial: 12.20 E/E' Lat: 9.30 Right Ventricle TAPSE (mm): 20.80 TVS' Bora: 13.80 Tricuspid Valve TR Pk Bora: 3.22 TR Pk Grad: 41.00 RA Press: 15.00 RVSP: 56.00 Great Vessels Aorta Sinus of Valsalva: 3.70 2.0-3.5 cm Updated in Other Vendor System with Status of Final Brandt Morrell MD electronically signed on 12/16/2022 9:06:30 PM with status of Final
[2022-12-16 07:02] LABS: MANUAL DIFF FLAG NO
[2022-12-16 07:05] LABS: Basophils Percent Auto 0.2 % (0-2); Hematocrit 28.7 % (42.0-52.0); Hemoglobin 8.6 g/dl (14.0-18.0); Imm Gran Abs Auto 0.03 X10*3/uL (0.00-0.03); Imm Gran Pct Auto 0.7 % (0.0-0.4); Lymphocytes Absolute Auto 0.5 X10*3/uL (1.2-4.9); Lymphocytes Percent Auto 12.3 % (20-40); Mean Corpuscular Volume 103.6 fL (80.0-98.0); Mean Platelet Volume 9.9 fL (9.4-12.4); Monocytes Absolute Auto 0.1 X10*3/uL (0.1-1.2); Monocytes Percent Auto 1.8 % (2-11); Neutrophils Absolute Auto 3.7 x10*3/uL (2.0-8.3); Platelet Count 207 X10*3/uL (160-400); Red Blood Count 2.77 X10*6/uL (4.60-5.80); Red Cell Distribution Width 17.8 % (11.0-16.0); White Blood Count 4.4 X10*3/uL (4.8-10.8)
[2022-12-16 07:20] LABS: Anion Gap 12 (12-20); Blood Urea Nitrogen 18 mg/dL (9-16); Calcium 8.7 mg/dL (8.4-10.2); Carbon Dioxide 38 mmol/L (22-29); Chloride 95 mmol/L (96-108); Creatinine Clr Calc Pharmacy 48.5; Estimated Glomerular Filt Rate 47; Glucose Random 215 mg/dL (60-115); Potassium 4.4 mmol/L (3.3-5.1); Sodium 141 mmol/L (135-145)
[2022-12-16 07:40] LABS: Glucose, Whole Blood 220 mg/dL (60-115)
[2022-12-16] MEDS: Albuterol/Iprat 2.5/0.5MG 3 ML AMPUL.NEB INHALE ×4 (08:04→19:52)
[2022-12-16] MEDS: Cyanocobalamin (Vitamin B-12) 1,000 MCG TABLET 1000 MCG PO (08:54)
[2022-12-16] MEDS: Doxycycline Monohydrate 100 MG CAPSULE PO ×2 (08:54→20:43)
[2022-12-16] MEDS: Ferrous Sulfate 324 MG TABLET.DR PO (08:54)
[2022-12-16] MEDS: Insulin Lispro 100 UNIT/ML 3 ML VIAL SUBCUT ×4 (08:54→20:43)
[2022-12-16] MEDS: Ezetimibe 10 MG TABLET PO (08:54)
[2022-12-16] MEDS: Ascorbic Acid 500 MG TABLET PO (08:54)
[2022-12-16] MEDS: dilTIAZem HCL CD 180 MG CAP.ER.24H PO (08:54)
[2022-12-16 09:18] LABS: INTERNATIONAL NORM RATIO 2.1 (0.9-1.1); Prothrombin Time 24.4 SEC (10.0-13.1)
--- NOTE | 2022-12-16 09:26 | HO.PM.IMPN ---
Subjective Subjective Date of Service: 12/16/22 Interval History: c/o dyspnea + edema no chest pain Review of Systems Review of Systems: Yes all other systems are reviewed and are negative Physical Exam Vital Signs: Vital Signs: Last Vital Signs Temp 97.2 F 12/16/22 07:56 Pulse 73 12/16/22 08:07 Resp 18 12/16/22 08:07 BP 109/58 L 12/16/22 07:56 Pulse Ox 97 12/16/22 07:56 O2 Del Method Nasal Cannula 12/16/22 07:56 O2 Flow Rate 2 12/16/22 07:56 BMI result Body Mass Index 34.2 Gen: in no acute distress HEENT: sclera anicteric, moist mucus membranes Neck: supple, JVD Lungs: bibasilar inspiratory crackles Heart: regular rate and rhythm, no murmurs Abd: soft, non-tender, non-distended Ext: 3+ BLE pitting edema Skin: warm/well-perfused Neuro: alert and oriented x3, no focal findings Psych: appropriate affect Objective Data Active Medications Acetaminophen (Acetaminophen 325 Mg Tablet) 650 mg PO Q6H PRN PRN Reason: Pain, Mild (Pain Scale 1-3) Albuterol Sulfate (Albuterol Sulfate 90 Mcg 8 Gm Inhaler) 1 puff INHALE QID PRN PRN Reason: shortness of breath or wheezing Albuterol/Ipratropium (Albuterol/Iprat 2.5/0.5mg 3 Ml Ampul.Neb) 3 ml INHALE Q4H PRN PRN Reason: Wheezing Albuterol/Ipratropium (Albuterol/Iprat 2.5/0.5mg 3 Ml Ampul.Neb) 3 ml INHALE RQ4H WHILE AWAKE [facility] Last Admin: 12/16/22 08:04 Dose: 3 ml Documented By: CHAYO Ascorbic Acid (Ascorbic Acid 500 Mg Tablet) 500 mg PO DAILY [facility] Last Admin: 12/16/22 08:54 Dose: 500 mg Documented By: TARIK Cyanocobalamin (Cyanocobalamin (Vitamin B-12) 1,000 Mcg Tablet) 1,000 mcg PO DAILY [facility] Last Admin: 12/16/22 08:54 Dose: 1,000 mcg Documented By: TARIK Dextrose (Dextrose 50 % 25 Gm/50 Ml Syringe) 25 gm IVPUSH Q15M PRN; Protocol PRN Reason: per Hypoglycemia Standing Ord. Digoxin (Digoxin 0.125 Mg Tablet) 0.125 mg PO BEDTIME [facility] Diltiazem HCl (Diltiazem Hcl Cd 180 Mg Cap.Er.24h) 180 mg PO DAILY [facility]; Protocol Last Admin: 12/16/22 08:54 Dose: 180 mg Documented By: TARIK Doxycycline Monohydrate (Doxycycline Monohydrate 100 Mg Capsule) 100 mg PO BID [facility] Stop: 12/17/22 21:01 Last Admin: 12/16/22 08:54 Dose: 100 mg Documented By: TARIK Ezetimibe (Ezetimibe 10 Mg Tablet) 10 mg PO DAILY [facility] Last Admin: 12/16/22 08:54 Dose: 10 mg Documented By: TARIK Ferrous Sulfate (Ferrous Sulfate 324 Mg Tablet.Dr) 324 mg PO DAILY [facility] Last Admin: 12/16/22 08:54 Dose: 324 mg Documented By: TARIK Fluticasone/Vilanterol (Fluticasone/Vilanterol 200/25 Blst.W.Dev) 1 puff INHALE RDAILY [facility] Glucose (Glucose Gel 15 Gm Gel..Gram.) 15 gm PO Q15M PRN; Protocol PRN Reason: per Hypoglycemia Standing Ord. Furosemide 200 mg/ Sodium (Chloride) 100 mls @ 2.5 mls/hr IVCONT .Q24H [facility] Last Admin: 12/15/22 21:56 Dose: 5 mg/hr, 2.5 mls/hr Documented By: RADHA Insulin Human Lispro (Insulin Lispro 100 Unit/Ml 3 Ml Vial) 0 unit SUBCUT QIDACHS [facility]; Protocol Last Admin: 12/16/22 08:54 Dose: 4 unit Documented By: TARIK Melatonin (Melatonin 3 Mg Tablet) 6 mg PO BEDTIME PRN PRN Reason: Insomnia Ondansetron HCl (Ondansetron Hcl 4 Mg/2 Ml Vial) 4 mg IVPUSH Q8H PRN PRN Reason: Nausea and Vomiting Pharmacy Consult (Consult Rx Perform Med Rec) 1 each MISCELLANE ONCE PRN PRN Reason: Consult order Pravastatin Sodium (Pravastatin Sodium 80 Mg Tablet) 80 mg PO BEDTIME [facility] Sodium Chloride (0.9 % Sodium Chloride Flush 3 Ml Syringe) 3 ml IVFLUSH QSHIFT [facility] Last Admin: 12/16/22 07:20 Dose: Not Given Documented By: TARIK Non-Admin Reason: See Note Tiotropium [place] (Tiotropium [place] 2.5 Mcg Inhaler) 2 puff INHALE RDAILY [facility] Warfarin Sodium (Warfarin Sodium 5 Mg Tablet) 5 mg PO [email or web address] [facility] Warfarin Sodium (Warfarin Sodium 2.5 Mg Tablet) 2.5 mg PO [email or web address] [facility] Labs 12/16/22 06:30 12/16/22 06:30 Labs: Laboratory Results - last 24 hr 12/15/22 12/15/22 12/15/22 12:07 12:07 12:07 MCV 103.6 H MCH 30.7 MCHC 29.7 L RDW 18.1 H Plt Count 256 MPV 9.9 Immature Gran % (Auto) 0.4 Neut % (Auto) 73.4 H Lymph % (Auto) 12.4 L [place] % (Auto) 8.5 Eos % (Auto) 5.0 H Baso % (Auto) 0.3 Lymph # (Auto) 1.0 L [place] # (Auto) 0.7 Eos # (Auto) 0.4 Baso # (Auto) 0.0 Abs Immat Gran (auto) 0.03 Absolute Neuts (auto) 5.9 Absolute Nucleated RBC 0.000 Nucleated RBC % (auto) 0.0 PT INR VBG pH VBG pCO2 VBG pO2 VBG HCO3 VBG O2 Saturation VBG Base Excess Anion Gap 13 Estim Creat Clear Calc 51.3 Estimated GFR 50 POC Glucose Random Glucose 126 H Lactic Acid Calcium 9.4 D Magnesium 2.4 Total Bilirubin 0.5 Direct Bilirubin 0.3 AST 23 ALT 12 Alkaline Phosphatase 67 Troponin I High Sens 8.5 B-Natriuretic Peptide Total Protein 6.7 Albumin 3.6 Vitamin B12 Folate COVID-19 ([facility]) COVID-19 Clin Com Influenza Type A (PCR) Influenza Type B (PCR) RSV RNA Qual (PCR) SARS-CoV-2 RNA (RT-PCR) 12/15/22 12/15/22 12/15/22 12:07 12:07 17:52 MCV MCH MCHC RDW Plt Count MPV Immature Gran % (Auto) Neut % (Auto) Lymph % (Auto) [place] % (Auto) Eos % (Auto) Baso % (Auto) Lymph # (Auto) [place] # (Auto) Eos # (Auto) Baso # (Auto) Abs Immat Gran (auto) Absolute Neuts (auto) Absolute Nucleated RBC Nucleated RBC % (auto) PT INR VBG pH VBG pCO2 VBG pO2 VBG HCO3 VBG O2 Saturation VBG Base Excess Anion Gap Estim Creat Clear Calc Estimated GFR POC Glucose Random Glucose Lactic Acid Calcium Magnesium Total Bilirubin Direct Bilirubin AST ALT Alkaline Phosphatase Troponin I High Sens B-Natriuretic Peptide 78 Total Protein Albumin Vitamin B12 Folate COVID-19 ([facility]) Negative COVID-19 Clin Com See Note Influenza Type A (PCR) NEGATIVE Influenza Type B (PCR) NEGATIVE RSV RNA Qual (PCR) NEGATIVE SARS-CoV-2 RNA (RT-PCR) NEGATIVE 12/15/22 12/15/22 12/15/22 18:17 19:22 20:55 MCV MCH MCHC RDW Plt Count MPV Immature Gran % (Auto) Neut % (Auto) Lymph % (Auto) [place] % (Auto) Eos % (Auto) Baso % (Auto) Lymph # (Auto) [place] # (Auto) Eos # (Auto) Baso # (Auto) Abs Immat Gran (auto) Absolute Neuts (auto) Absolute Nucleated RBC Nucleated RBC % (auto) PT INR VBG pH 7.39 VBG pCO2 68 VBG pO2 35 VBG HCO3 41 H VBG O2 Saturation 49.0 VBG Base Excess 14.3 Anion Gap Estim Creat Clear Calc Estimated GFR POC Glucose Random Glucose Lactic Acid 1.1 Calcium Magnesium Total Bilirubin Direct Bilirubin AST ALT Alkaline Phosphatase Troponin I High Sens B-Natriuretic Peptide Total Protein Albumin Vitamin B12 1628 H Folate 11.5 COVID-19 ([facility]) COVID-19 Clin Com Influenza Type A (PCR) Influenza Type B (PCR) RSV RNA Qual (PCR) SARS-CoV-2 RNA (RT-PCR) 12/15/22 12/16/22 12/16/22 21:24 06:30 06:30 MCV 103.6 H MCH 31.0 MCHC 30.0 L RDW 17.8 H Plt Count 207 MPV 9.9 Immature Gran % (Auto) 0.7 H Neut % (Auto) 85.0 H Lymph % (Auto) 12.3 L [place] % (Auto) 1.8 L Eos % (Auto) 0.0 Baso % (Auto) 0.2 Lymph # (Auto) 0.5 L [place] # (Auto) 0.1 Eos # (Auto) 0.0 Baso # (Auto) 0.0 Abs Immat Gran (auto) 0.03 Absolute Neuts (auto) 3.7 Absolute Nucleated RBC 0.000 Nucleated RBC % (auto) 0.0 PT INR VBG pH VBG pCO2 VBG pO2 VBG HCO3 VBG O2 Saturation VBG Base Excess Anion Gap 12 Estim Creat Clear Calc 48.5 Estimated GFR 47 POC Glucose 146 H Random Glucose 215 H Lactic Acid Calcium 8.7 D Magnesium Total Bilirubin Direct Bilirubin AST ALT Alkaline Phosphatase Troponin I High Sens B-Natriuretic Peptide Total Protein Albumin Vitamin B12 Folate COVID-19 ([facility]) COVID-19 Clin Com Influenza Type A (PCR) Influenza Type B (PCR) RSV RNA Qual (PCR) SARS-CoV-2 RNA (RT-PCR) 12/16/22 12/16/22 07:29 08:59 MCV MCH MCHC RDW Plt Count MPV Immature Gran % (Auto) Neut % (Auto) Lymph % (Auto) [place] % (Auto) Eos % (Auto) Baso % (Auto) Lymph # (Auto) [place] # (Auto) Eos # (Auto) Baso # (Auto) Abs Immat Gran (auto) Absolute Neuts (auto) Absolute Nucleated RBC Nucleated RBC % (auto) PT 24.4 H INR 2.1 H D VBG pH VBG pCO2 VBG pO2 VBG HCO3 VBG O2 Saturation VBG Base Excess Anion Gap Estim Creat Clear Calc Estimated GFR POC Glucose 220 H Random Glucose Lactic Acid Calcium Magnesium Total Bilirubin Direct Bilirubin AST ALT Alkaline Phosphatase Troponin I High Sens B-Natriuretic Peptide Total Protein Albumin Vitamin B12 Folate COVID-19 ([facility]) COVID-19 Clin Com Influenza Type A (PCR) Influenza Type B (PCR) RSV RNA Qual (PCR) SARS-CoV-2 RNA (RT-PCR) Assessment and Plan (1) CHF (congestive heart failure): Status: Acute Plan d2 72yo M with chronic AF on warfarin, chronic HFpEF, HTN, venous stasis, HLD, DM2, chronic hypoxia due to COPD sent in by car rental sales assistant Dr Bird due to CHF exacerbation resistant to oral diuresis acute-chronic HFpEF - IV furosemide, monitor I+O/weight/BMP/Mg/BNP, update TTE, Cardiology consultation rate-controlled chronic AF - continue warfarin, daily INR [2.1 today] - continue digoxin, diltiazem macrocytic anemia - B12/FA WNL, check FOBT HLD - statin, ezetimibe chronic hypoxic RF due to COPD - suppl O2, Breo, Spiriva, nebs DM2 - correction-dose lispro, DM diet VTE ppx - warfarin dispo - eventual home with VNA In my clinical judgment, the patient requires continued inpatient hospitalization for the following reasons: IV diuresis Time Spent With Patient Time: Total time managing care of this patient today __45__ minutes. Quality Stroke Does the patient have a stroke diagnosis?: No VTE Prior VTE?: No VTE Risk Level:: Medical - moderate - high VTE Device Contraindication: Treatment Not Indicated VTE Drug Contraindication: N/A - Med Ordered
--- NOTE | 2022-12-16 09:32 | MHC.CM.PN ---
CM attempted to meet with Patient but he was receiving testing at bedside; CM spoke with /HCP/Farida @ [phone] and addressed IMM with her (original will be left at bedside with Patient and a copy has been placed on the chart). Patient lives in a house with his /HCP and he required no services just prior to admission and he uses a cane. Home/self care is the goal and CM has initiated and will follow for dc planning. Patient has received [facility] vax x5 and his PCP is a PA/Meghana from Dr. Berrios's practice.
[2022-12-16 11:38] LABS: Glucose, Whole Blood 370 mg/dL (60-115)
[2022-12-16] MEDS: Fluticasone/Vilanterol 200/25 BLST.W.DEV 1 PUFF INHALE (11:46)
--- NOTE | 2022-12-16 14:55 | P.CONCA_ITS ---
History of Present Illness History of Present Illness Date of Service: 12/16/22 Requesting physician: Cheyenne Ashley Chief complaint: Dyspnea, CHF Narrative: 72-year-old gentleman who we have been consulted for congestive heart failure. He follows with Dr. Bird and was seen on 12/15/2022 in the office and was admitted. He has background of chronic atrial fibrillation and has been on digoxin 125 mcg daily and diltiazem 180 mg daily along with Coumadin. He was taking torsemide 40 mg once a day at home. He was not responding to diuretics and was admitted. Discussing with the patient, he said he has been experiencing lower extremity edema since September since he had hip surgery. He is saying his breathing has been worsening progressively and he has significant edema of the lower extremities at this point. Torsemide 60 mg was tried and more recently was tried on 40 mg of torsemide. He is currently on Lasix drip 5 milligram/hour and has diuresed close to 2-1/2 L. [facility] Past Medical History Medical History Biatrial enlargement Chronic heart failure with preserved ejection fraction (HFpEF) CKD (chronic kidney disease) Diabetes mellitus HLD (hyperlipidemia) HTN (hypertension) Pulmonary hypertension Family History Family History Father Cancer Mother No problems noted. Surgical History Surgical History History of nephrectomy Hx of hernia repair Social History Social History Household Members: Spouse Housing: House Do you presently have visiting nurse or other home services: No Patient Tobacco Use Status: Former Tobacco user Second Hand Smoke Exposure: No service: No Meds Allergies Allergy/AdvReac Type Severity Reaction Status Date / Time No Known Allergies Allergy Verified 12/15/22 10:30 Active Medications: Current Medications Acetaminophen (Acetaminophen 325 Mg Tablet) 650 mg PO Q6H PRN PRN Reason: Pain, Mild (Pain Scale 1-3) Albuterol Sulfate (Albuterol Sulfate 90 Mcg 8 Gm Inhaler) 1 puff INHALE QID PRN PRN Reason: shortness of breath or wheezing Albuterol/Ipratropium (Albuterol/Iprat 2.5/0.5mg 3 Ml Ampul.Neb) 3 ml INHALE Q4H PRN PRN Reason: Wheezing Albuterol/Ipratropium (Albuterol/Iprat 2.5/0.5mg 3 Ml Ampul.Neb) 3 ml INHALE RQ4H WHILE AWAKE [facility] Last Admin: 12/16/22 11:45 Dose: 3 ml Ascorbic Acid (Ascorbic Acid 500 Mg Tablet) 500 mg PO DAILY [facility] Last Admin: 12/16/22 08:54 Dose: 500 mg Cyanocobalamin (Cyanocobalamin (Vitamin B-12) 1,000 Mcg Tablet) 1,000 mcg PO DAILY [facility] Last Admin: 12/16/22 08:54 Dose: 1,000 mcg Dextrose (Dextrose 50 % 25 Gm/50 Ml Syringe) 25 gm IVPUSH Q15M PRN; Protocol PRN Reason: per Hypoglycemia Standing Ord. Digoxin (Digoxin 0.125 Mg Tablet) 0.125 mg PO BEDTIME [facility] Diltiazem HCl (Diltiazem Hcl Cd 180 Mg Cap.Er.24h) 180 mg PO DAILY [facility]; Protocol Last Admin: 12/16/22 08:54 Dose: 180 mg Doxycycline Monohydrate (Doxycycline Monohydrate 100 Mg Capsule) 100 mg PO BID [facility] Stop: 12/17/22 21:01 Last Admin: 12/16/22 08:54 Dose: 100 mg Ezetimibe (Ezetimibe 10 Mg Tablet) 10 mg PO DAILY [facility] Last Admin: 12/16/22 08:54 Dose: 10 mg Ferrous Sulfate (Ferrous Sulfate 324 Mg Tablet.Dr) 324 mg PO DAILY [facility] Last Admin: 12/16/22 08:54 Dose: 324 mg Fluticasone/Vilanterol (Fluticasone/Vilanterol 200/25 Blst.W.Dev) 1 puff INHALE RDAILY [facility] Last Admin: 12/16/22 11:46 Dose: 1 puff Glucose (Glucose Gel 15 Gm Gel..Gram.) 15 gm PO Q15M PRN; Protocol PRN Reason: per Hypoglycemia Standing Ord. Furosemide 200 mg/ Sodium (Chloride) 100 mls @ 2.5 mls/hr IVCONT .Q24H [facility] Last Admin: 12/15/22 21:56 Dose: 5 mg/hr, 2.5 mls/hr Insulin Human Lispro (Insulin Lispro 100 Unit/Ml 3 Ml Vial) 0 unit SUBCUT QIDACHS [facility]; Protocol Last Admin: 12/16/22 11:48 Dose: 15 unit Melatonin (Melatonin 3 Mg Tablet) 6 mg PO BEDTIME PRN PRN Reason: Insomnia Ondansetron HCl (Ondansetron Hcl 4 Mg/2 Ml Vial) 4 mg IVPUSH Q8H PRN PRN Reason: Nausea and Vomiting Pharmacy Consult (Consult Rx Perform Med Rec) 1 each MISCELLANE ONCE PRN PRN Reason: Consult order Pravastatin Sodium (Pravastatin Sodium 80 Mg Tablet) 80 mg PO BEDTIME [facility] Sodium Chloride (0.9 % Sodium Chloride Flush 3 Ml Syringe) 3 ml IVFLUSH QSHIFT [facility] Last Admin: 12/16/22 14:25 Dose: Not Given Tiotropium [place] (Tiotropium [place] 2.5 Mcg Inhaler) 2 puff INHALE RDAILY [facility] Last Admin: 12/16/22 11:45 Dose: 2 puff Warfarin Sodium (Warfarin Sodium 5 Mg Tablet) 5 mg PO MoWeFr@1800 [facility] Warfarin Sodium (Warfarin Sodium 2.5 Mg Tablet) 2.5 mg PO SuTuThSa@1800 [facility] Home Medications Medication Instructions Recorded Confirmed Last Taken Type ascorbic acid (vitamin C) 500 mg 500 mg PO DAILY 05/01/20 12/15/22 12/15/22 History tablet budesonide-formoterol HFA 160 2 puff PO BID 05/01/20 12/15/22 12/15/22 History mcg-4.5 mcg/actuation aerosol inhaler ezetimibe 10 mg tablet 10 mg PO DAILY 05/01/20 12/15/22 12/15/22 History ferrous sulfate 325 mg (65 mg 325 mg PO DAILY 05/01/20 12/15/22 12/15/22 History iron) tablet metformin 500 mg tablet 500 mg PO BIDWM 05/01/20 12/15/22 12/15/22 History tiotropium bromide 18 mcg capsule 18 mcg PO DAILY 05/01/20 12/15/22 12/15/22 History with inhalation device alcohol swabs pad topical 10/01/20 12/15/22 Unknown History torsemide 20 mg tablet 40 mg PO DAILY 04/18/22 12/15/22 12/15/22 History albuterol sulfate 90 mcg/actuation 1 inh inhalation QID PRN shortness 11/10/22 12/15/22 12/15/22 History aerosol inhaler of breath or wheezing cyanocobalamin (vitamin B-12) 1,000 mcg PO DAILY 12/15/22 12/15/22 12/15/22 History 1,000 mcg tablet digoxin 125 mcg (0.125 mg) tablet 125 mcg PO BEDTIME 12/15/22 12/15/22 12/15/22 History doxycycline hyclate 100 mg capsule 100 mg PO BID 12/15/22 12/15/22 12/15/22 History pravastatin 80 mg tablet 80 mg PO BEDTIME 12/15/22 12/15/22 12/15/22 History warfarin 5 mg tablet 2.5 mg PO SUTUTHSA@1800 12/15/22 12/16/22 12/14/22 History warfarin 5 mg tablet 5 mg PO MOWEFR@1800 12/15/22 12/16/22 Unknown History Physical Exam Vital Signs: Vital Signs: Last Vital Signs Temp 97.2 F 12/16/22 11:17 Pulse 89 12/16/22 11:47 Resp 18 12/16/22 11:47 BP 117/56 L 12/16/22 11:17 Pulse Ox 93 12/16/22 11:17 O2 Del Method Nasal Cannula 12/16/22 11:17 O2 Flow Rate 2 12/16/22 11:17 BMI result Body Mass Index 34.2 GENERAL APPEARANCE: in no acute distress, pleasant. NECK: no carotid bruit, + jugular venous distention. SKIN: no suspicious lesions, warm and dry. HEART: no murmurs, irregular rate and rhythm. LUNGS: clear to auscultation bilaterally. ABDOMEN: soft, nontender. EXTREMITIES: 3+ edema up to thighs. PERIPHERAL PULSES: equal. NEUROLOGIC: No gross deficits, AAO X 3 Objective Labs and Meds 12/16/22 06:30 12/16/22 06:30 Lab results: Laboratory Results - last 24 hr 12/15/22 12/15/22 12/15/22 17:52 18:17 19:22 WBC RBC Hgb Hct MCV MCH MCHC RDW Plt Count MPV Immature Gran % (Auto) Neut % (Auto) Lymph % (Auto) [place] % (Auto) Eos % (Auto) Baso % (Auto) Lymph # (Auto) [place] # (Auto) Eos # (Auto) Baso # (Auto) Abs Immat Gran (auto) Absolute Neuts (auto) Absolute Nucleated RBC Nucleated RBC % (auto) PT INR VBG pH 7.39 VBG pCO2 68 VBG pO2 35 VBG HCO3 41 H VBG O2 Saturation 49.0 VBG Base Excess 14.3 Sodium Potassium Chloride Carbon Dioxide Anion Gap BUN Creatinine Estim Creat Clear Calc Estimated GFR POC Glucose Random Glucose Lactic Acid 1.1 Calcium Vitamin B12 Folate Influenza Type A (PCR) NEGATIVE Influenza Type B (PCR) NEGATIVE RSV RNA Qual (PCR) NEGATIVE SARS-CoV-2 RNA (RT-PCR) NEGATIVE 12/15/22 12/15/22 12/16/22 20:55 21:24 06:30 WBC 4.4 L RBC 2.77 L Hgb 8.6 L Hct 28.7 L MCV 103.6 H MCH 31.0 MCHC 30.0 L RDW 17.8 H Plt Count 207 MPV 9.9 Immature Gran % (Auto) 0.7 H Neut % (Auto) 85.0 H Lymph % (Auto) 12.3 L [place] % (Auto) 1.8 L Eos % (Auto) 0.0 Baso % (Auto) 0.2 Lymph # (Auto) 0.5 L [place] # (Auto) 0.1 Eos # (Auto) 0.0 Baso # (Auto) 0.0 Abs Immat Gran (auto) 0.03 Absolute Neuts (auto) 3.7 Absolute Nucleated RBC 0.000 Nucleated RBC % (auto) 0.0 PT INR VBG pH VBG pCO2 VBG pO2 VBG HCO3 VBG O2 Saturation VBG Base Excess Sodium Potassium Chloride Carbon Dioxide Anion Gap BUN Creatinine Estim Creat Clear Calc Estimated GFR POC Glucose 146 H Random Glucose Lactic Acid Calcium Vitamin B12 1628 H Folate 11.5 Influenza Type A (PCR) Influenza Type B (PCR) RSV RNA Qual (PCR) SARS-CoV-2 RNA (RT-PCR) 12/16/22 12/16/22 12/16/22 06:30 07:29 08:59 WBC RBC Hgb Hct MCV MCH MCHC RDW Plt Count MPV Immature Gran % (Auto) Neut % (Auto) Lymph % (Auto) [place] % (Auto) Eos % (Auto) Baso % (Auto) Lymph # (Auto) [place] # (Auto) Eos # (Auto) Baso # (Auto) Abs Immat Gran (auto) Absolute Neuts (auto) Absolute Nucleated RBC Nucleated RBC % (auto) PT 24.4 H INR 2.1 H D VBG pH VBG pCO2 VBG pO2 VBG HCO3 VBG O2 Saturation VBG Base Excess Sodium 141 Potassium 4.4 Chloride 95 L Carbon Dioxide 38 H Anion Gap 12 BUN 18 H Creatinine 1.47 H Estim Creat Clear Calc 48.5 Estimated GFR 47 POC Glucose 220 H Random Glucose 215 H Lactic Acid Calcium 8.7 D Vitamin B12 Folate Influenza Type A (PCR) Influenza Type B (PCR) RSV RNA Qual (PCR) SARS-CoV-2 RNA (RT-PCR) 12/16/22 11:31 WBC RBC Hgb Hct MCV MCH MCHC RDW Plt Count MPV Immature Gran % (Auto) Neut % (Auto) Lymph % (Auto) [place] % (Auto) Eos % (Auto) Baso % (Auto) Lymph # (Auto) [place] # (Auto) Eos # (Auto) Baso # (Auto) Abs Immat Gran (auto) Absolute Neuts (auto) Absolute Nucleated RBC Nucleated RBC % (auto) PT INR VBG pH VBG pCO2 VBG pO2 VBG HCO3 VBG O2 Saturation VBG Base Excess Sodium Potassium Chloride Carbon Dioxide Anion Gap BUN Creatinine Estim Creat Clear Calc Estimated GFR POC Glucose 370 H* Random Glucose Lactic Acid Calcium Vitamin B12 Folate Influenza Type A (PCR) Influenza Type B (PCR) RSV RNA Qual (PCR) SARS-CoV-2 RNA (RT-PCR) Imaging Radiologist's impression: Impressions Chest CT 12/15/22 18:43 IMPRESSION: 1. No abnormal mediastinal or axillary lymphadenopathy seen. No abnormality seen in either hilum. 2. Bilateral adrenal lesions, left greater than right. 3. Mild emphysematous changes in the lungs without acute pneumonic process. Fleischner guidelines were followed. Assessment and Plan (1) Decompensated heart failure: Status: Acute (2) Chronic a-fib: Status: Acute (3) CKD (chronic kidney disease): Status: Acute Plan 72-year-old gentleman presenting from clinic with acute decompensated congestive heart failure. He has right more than left-sided heart failure at this point. Significantly volume overloaded. On Lasix drip. I think we should continue him on the Lasix at the same dose for now. If urine output is not adequate, then he should get 80 mg of IV Lasix and Lasix drip should be increased. Monitor potassium and magnesium along with kidney function closely. We will repeat echocardiography to see if there is any obvious change in his ejection fraction or RV function to explain this presentation. If he has RV dysfunction then diltiazem has to be discontinued. He should have a digoxin level checked. We will continue to follow along with you. Thank you for allowing me to participate in the care of your patient. Please feel free to contact me if you have any questions. Time Spent With Patient Time: Total time managing care of this patient today ____ minutes. Procedures Date of Service Date of Service: 12/16/22
[2022-12-16 15:44] LABS: Glucose, Whole Blood 255 mg/dL (60-115)
[2022-12-16] MEDS: Warfarin Sodium 2.5 MG TABLET PO (17:25)
[2022-12-16 19:43] LABS: Glucose, Whole Blood 268 mg/dL (60-115)
[2022-12-16] MEDS: Pravastatin Sodium 80 MG TABLET PO (20:43)
[2022-12-16] MEDS: Digoxin 0.125 MG TABLET PO (20:43)
[2022-12-16] MEDS: 0.9 % Sodium Chloride Flush 3 ML SYRINGE IVFLUSH (20:44)
[2022-12-17] VITALS (12 sets, daily range): BP systolic 113–120; BP diastolic 51–58; PULSE 61–88; RESP 14–20; TEMP 36–36.6; O2SAT 93–100
[2022-12-17 06:22] LABS: INTERNATIONAL NORM RATIO 2.1 (0.9-1.1); Prothrombin Time 24.3 SEC (10.0-13.1)
[2022-12-17 06:38] LABS: B Type Natriuretic Peptide 105 pg/mL (<100)
[2022-12-17 06:44] LABS: Anion Gap 12 (12-20); Blood Urea Nitrogen 28 mg/dL (9-16); Calcium 8.8 mg/dL (8.4-10.2); Carbon Dioxide 40 mmol/L (22-29); Chloride 91 mmol/L (96-108); Creatinine Clr Calc Pharmacy 49.5; Estimated Glomerular Filt Rate 48; Glucose Random 173 mg/dL (60-115); Magnesium 2.1 mg/dL (1.6-2.6); Potassium 3.6 mmol/L (3.3-5.1); Sodium 139 mmol/L (135-145)
[2022-12-17 07:27] LABS: Glucose, Whole Blood 192 mg/dL (60-115)
[2022-12-17] MEDS: Fluticasone/Vilanterol 200/25 BLST.W.DEV 1 PUFF INHALE (08:00)
[2022-12-17] MEDS: Albuterol/Iprat 2.5/0.5MG 3 ML AMPUL.NEB INHALE ×4 (08:00→18:47)
[2022-12-17] MEDS: Ferrous Sulfate 324 MG TABLET.DR PO (08:37)
[2022-12-17] MEDS: Doxycycline Monohydrate 100 MG CAPSULE PO ×2 (08:37→20:32)
[2022-12-17] MEDS: Insulin Lispro 100 UNIT/ML 3 ML VIAL SUBCUT ×4 (08:37→20:32)
[2022-12-17] MEDS: dilTIAZem HCL CD 180 MG CAP.ER.24H PO (08:37)
[2022-12-17] MEDS: Ezetimibe 10 MG TABLET PO (08:37)
[2022-12-17] MEDS: Cyanocobalamin (Vitamin B-12) 1,000 MCG TABLET 1000 MCG PO (08:37)
[2022-12-17] MEDS: Furosemide 200 MG in 0.9 % Sodium Chloride 80 ML IVCONT (08:38)
[2022-12-17] MEDS: 0.9 % Sodium Chloride Flush 3 ML SYRINGE IVFLUSH ×2 (08:38→20:33)
[2022-12-17] MEDS: Ascorbic Acid 500 MG TABLET PO (08:47)
--- NOTE | 2022-12-17 10:17 | HO.PM.IMPN ---
Subjective Subjective Date of Service: 12/17/22 Interval History: dyspnea improved edema improved no chest pain negative 4.4L thus far Review of Systems Review of Systems: Yes all other systems are reviewed and are negative Physical Exam Vital Signs: Vital Signs: Last Vital Signs Temp 97.2 F 12/17/22 07:34 Pulse 88 12/17/22 08:02 Resp 16 12/17/22 08:02 BP 120/58 L 12/17/22 07:34 Pulse Ox 95 12/17/22 07:34 O2 Del Method Nasal Cannula 12/17/22 07:34 O2 Flow Rate 2 12/17/22 07:34 BMI result Body Mass Index 34.2 Gen: in no acute distress HEENT: sclera anicteric, moist mucus membranes Neck: supple, JVD Lungs: bibasilar inspiratory crackles, no respiratory distrss Heart: irregular, no murmurs Abd: soft, non-tender, non-distended Ext: 2+ BLE pitting edema Skin: warm/well-perfused Neuro: alert and oriented x3, no focal findings Psych: appropriate affect Objective Data Active Medications Acetaminophen (Acetaminophen 325 Mg Tablet) 650 mg PO Q6H PRN PRN Reason: Pain, Mild (Pain Scale 1-3) Albuterol Sulfate (Albuterol Sulfate 90 Mcg 8 Gm Inhaler) 1 puff INHALE QID PRN PRN Reason: shortness of breath or wheezing Albuterol/Ipratropium (Albuterol/Iprat 2.5/0.5mg 3 Ml Ampul.Neb) 3 ml INHALE Q4H PRN PRN Reason: Wheezing Albuterol/Ipratropium (Albuterol/Iprat 2.5/0.5mg 3 Ml Ampul.Neb) 3 ml INHALE RQ4H WHILE AWAKE [facility] Last Admin: 12/17/22 08:00 Dose: 3 ml Documented By: JESS Ascorbic Acid (Ascorbic Acid 500 Mg Tablet) 500 mg PO DAILY [facility] Last Admin: 12/17/22 08:47 Dose: 500 mg Documented By: DORIS Cyanocobalamin (Cyanocobalamin (Vitamin B-12) 1,000 Mcg Tablet) 1,000 mcg PO DAILY [facility] Last Admin: 12/17/22 08:37 Dose: 1,000 mcg Documented By: DORIS Dextrose (Dextrose 50 % 25 Gm/50 Ml Syringe) 25 gm IVPUSH Q15M PRN; Protocol PRN Reason: per Hypoglycemia Standing Ord. Digoxin (Digoxin 0.125 Mg Tablet) 0.125 mg PO BEDTIME [facility] Last Admin: 12/16/22 20:43 Dose: 0.125 mg Documented By: WALDO Diltiazem HCl (Diltiazem Hcl Cd 180 Mg Cap.Er.24h) 180 mg PO DAILY [facility]; Protocol Last Admin: 12/17/22 08:37 Dose: 180 mg Documented By: DORSI Doxycycline Monohydrate (Doxycycline Monohydrate 100 Mg Capsule) 100 mg PO BID [facility] Stop: 12/17/22 21:01 Last Admin: 12/17/22 08:37 Dose: 100 mg Documented By: DORIS Ezetimibe (Ezetimibe 10 Mg Tablet) 10 mg PO DAILY [facility] Last Admin: 12/17/22 08:37 Dose: 10 mg Documented By: DORIS Ferrous Sulfate (Ferrous Sulfate 324 Mg Tablet.Dr) 324 mg PO DAILY [facility] Last Admin: 12/17/22 08:37 Dose: 324 mg Documented By: DORIS Fluticasone/Vilanterol (Fluticasone/Vilanterol 200/25 Blst.W.Dev) 1 puff INHALE RDAILY [facility] Last Admin: 12/17/22 08:00 Dose: 1 puff Documented By: JESS Glucose (Glucose Gel 15 Gm Gel..Gram.) 15 gm PO Q15M PRN; Protocol PRN Reason: per Hypoglycemia Standing Ord. Furosemide 200 mg/ Sodium (Chloride) 100 mls @ 2.5 mls/hr IVCONT .Q24H [facility] Last Admin: 12/17/22 08:38 Dose: 5 mg/hr, 2.5 mls/hr Documented By: DORIS Insulin Human Lispro (Insulin Lispro 100 Unit/Ml 3 Ml Vial) 0 unit SUBCUT QIDACHS [facility]; Protocol Last Admin: 12/17/22 08:37 Dose: 4 unit Documented By: DORIS Melatonin (Melatonin 3 Mg Tablet) 6 mg PO BEDTIME PRN PRN Reason: Insomnia Ondansetron HCl (Ondansetron Hcl 4 Mg/2 Ml Vial) 4 mg IVPUSH Q8H PRN PRN Reason: Nausea and Vomiting Pharmacy Consult (Consult Rx Perform Med Rec) 1 each MISCELLANE ONCE PRN PRN Reason: Consult order Pravastatin Sodium (Pravastatin Sodium 80 Mg Tablet) 80 mg PO BEDTIME [facility] Last Admin: 12/16/22 20:43 Dose: 80 mg Documented By: WALDO Sodium Chloride (0.9 % Sodium Chloride Flush 3 Ml Syringe) 3 ml IVFLUSH QSHIFT [facility] Last Admin: 12/17/22 08:38 Dose: 3 ml Documented By: JOELLENORRSamantha Tiotropium [place] (Tiotropium [place] 2.5 Mcg Inhaler) 2 puff INHALE RDAILY [facility] Last Admin: 12/17/22 08:00 Dose: 2 puff Documented By: JESS Warfarin Sodium (Warfarin Sodium 5 Mg Tablet) 5 mg PO MoWeFr@1800 [facility] Warfarin Sodium (Warfarin Sodium 2.5 Mg Tablet) 2.5 mg PO SuTuThSa@1800 [facility] Last Admin: 12/16/22 17:25 Dose: 2.5 mg Documented By: TAMEKAA Labs 12/16/22 06:30 12/17/22 05:58 Labs: Laboratory Results - last 24 hr 12/16/22 12/16/22 12/16/22 11:31 15:40 19:37 PT INR Anion Gap Estim Creat Clear Calc Estimated GFR POC Glucose 370 H* 255 H 268 H Random Glucose Calcium Magnesium B-Natriuretic Peptide 12/17/22 12/17/22 12/17/22 05:58 05:58 05:58 PT 24.3 H INR 2.1 H Anion Gap 12 Estim Creat Clear Calc 49.5 Estimated GFR 48 POC Glucose Random Glucose 173 H Calcium 8.8 Magnesium 2.1 B-Natriuretic Peptide 105 H 12/17/22 07:23 PT INR Anion Gap Estim Creat Clear Calc Estimated GFR POC Glucose 192 H Random Glucose Calcium Magnesium B-Natriuretic Peptide Microbiology Microbiology Results: Microbiology 12/15/22 19:22 Blood Culture - Preliminary Blood - Venous No growth after 24 hours. 12/15/22 18:23 Blood Culture - Preliminary Blood - Venous No growth after 24 hours. Assessment and Plan (1) CHF (congestive heart failure): Status: Acute Plan d3 72yo M with chronic AF on warfarin, chronic HFpEF, HTN, venous stasis, HLD, DM2, chronic hypoxia due to COPD sent in by software test manager Dr Bird due to CHF exacerbation resistant to oral diuresis acute-chronic R-sided HF - continue IV furosemide 5 mg/h, monitor I+O/weight/BMP/Mg/BNP, Cardiology following - TTE 12/16/22: - Normal left ventricular size, thickness, and systolic function. The visually estimated ejection fraction is between 65-70%.? ? ? There is no evidence of regional wall motion abnormalities.? ? ? - Moderately increased right ventricular cavity size.? There is? normal right ventricular systolic function.? - The left atrium is severely dilated.? The right atrium is? ? ? severely dilated.? - There is moderate tricuspid valve regurgitation.? The right? ? ventricular systolic pressure is 56 mmHg.? Significantly elevated right atrial pressure.? Moderate to severe pulmonary hypertension is present.? rate-controlled chronic AF - continue warfarin, daily INR [2.1 today] - continue digoxin, diltiazem macrocytic anemia - B12/FA WNL, check FOBT HLD - statin, ezetimibe chronic hypoxic RF due to COPD - suppl O2, Breo, Spiriva, nebs DM2 - increase correction-dose lispro scale, continue DM diet VTE ppx - warfarin dispo - eventual home with VNA In my clinical judgment, the patient requires continued inpatient hospitalization for the following reasons: IV diuresis Time Spent With Patient Time: Total time managing care of this patient today ___40_ minutes. Quality Stroke Does the patient have a stroke diagnosis?: No VTE Prior VTE?: No VTE Risk Level:: Medical - moderate - high VTE Device Contraindication: Treatment Not Indicated VTE Drug Contraindication: N/A - Med Ordered
[2022-12-17 11:24] LABS: Glucose, Whole Blood 222 mg/dL (60-115)
[2022-12-17] MEDS: acetaZOLAMIDE 250 MG TABLET PO ×2 (12:11→20:32)
[2022-12-17 15:45] LABS: Glucose, Whole Blood 215 mg/dL (60-115)
--- NOTE | 2022-12-17 16:11 | PM.PNCARD ---
Subjective Subjective Date of Service: 12/17/22 Interval history: Seen examined at bedside. Feeling better. On diuretics. Physical Exam Vital Signs: Last Vital Signs Temp 96.8 F 12/17/22 15:22 Pulse 77 12/17/22 15:36 Resp 16 12/17/22 15:36 BP 119/55 L 12/17/22 15:22 Pulse Ox 93 12/17/22 15:22 O2 Del Method Nasal Cannula 12/17/22 15:22 O2 Flow Rate 2 12/17/22 15:22 BMI result Body Mass Index 34.2 GENERAL APPEARANCE: in no acute distress, pleasant. NECK: no carotid bruit, mild jugular venous distention. SKIN: no suspicious lesions, warm and dry. HEART: no murmurs, irregular rate and rhythm. LUNGS: clear to auscultation bilaterally. ABDOMEN: soft, nontender. EXTREMITIES: 1+ edema mid legs. PERIPHERAL PULSES: equal. NEUROLOGIC: No gross deficits, AAO X 3 Objective Labs and Meds 12/16/22 06:30 12/17/22 05:58 Lab results: Laboratory Results - last 24 hr 12/16/22 12/17/22 12/17/22 19:37 05:58 05:58 PT INR Sodium 139 Potassium 3.6 Chloride 91 L Carbon Dioxide 40 H* Anion Gap 12 BUN 28 H Creatinine 1.44 H Estim Creat Clear Calc 49.5 Estimated GFR 48 POC Glucose 268 H Random Glucose 173 H Calcium 8.8 Magnesium 2.1 B-Natriuretic Peptide 105 H 12/17/22 12/17/22 12/17/22 05:58 07: 11:21 PT 24.3 H INR 2.1 H Sodium Potassium Chloride Carbon Dioxide Anion Gap BUN Creatinine Estim Creat Clear Calc Estimated GFR POC Glucose 192 H 222 H Random Glucose Calcium Magnesium B-Natriuretic Peptide 12/17/22 15:28 PT INR Sodium Potassium Chloride Carbon Dioxide Anion Gap BUN Creatinine Estim Creat Clear Calc Estimated GFR POC Glucose 215 H Random Glucose Calcium Magnesium B-Natriuretic Peptide Progress Note: A&P Assessment and plan (1) CHF (congestive heart failure): Status: Acute Plan [age] year gentleman with congestive heart failure. He has right more than left side heart failure. Echocardiography has shown moderate RV dilation with normal function. He has moderate severe pulmonary hypertension. He is on Lasix drip and is diuresing well. Added acetazolamide 250 mg twice a day. Monitor electrolytes closely. Would continue rest of the medications as before. He is on Coumadin for anticoagulation. He has permanent atrial fibrillation. His digoxin level is 0.7. I think we should change him to every other day digoxin. Thank you for allowing me to participate in the care of your patient. Please feel free to contact me if you have any questions. Time Spent With Patient Time: Total time managing care of this patient today ____ minutes. Progress Note: Quality Stroke Does the patient have a stroke diagnosis?: No Procedures Date of Service Date of Service: 12/17/22
[2022-12-17] MEDS: Warfarin Sodium 5 MG TABLET PO (17:53)
[2022-12-17 18:58] LABS: Appearance Urine Clear; Color Urine Yellow; Glucose Urine UA Negative (Negative); Leukocyte Esterase Urine Negative (Negative); Nitrite Urine Negative (Negative); PH 8.5 (5.0-9.0); Urine Blood Negative (Negative); Urine Ketones Negative (Negative); Urine Protein Negative (Neg-Trace)
[2022-12-17 19:01] LABS: Bacteria Urine None Seen (None Seen); Hyaline Casts Urine 0-2 /LPF (0-2); RBC Urine 0-2 /HPF (0-2); Squamous Epithelial Cell Urine 0-2 /HPF (0-2); WBC Urine 0-5 /HPF (0-5)
[2022-12-17 19:28] LABS: Creatinine Urine 19.91 mg/dL; Total Protein Urine Random < 7 mg/dL (<12)
[2022-12-17 20:19] LABS: Glucose, Whole Blood 173 mg/dL (60-115)
[2022-12-17] MEDS: Pravastatin Sodium 80 MG TABLET PO (20:32)
[2022-12-18] VITALS (10 sets, daily range): BP systolic 102–121; BP diastolic 52–59; PULSE 70–78; RESP 16–20; TEMP 36–36.4; O2SAT 92–96; BMI 32.4
[2022-12-18 06:01] LABS: Prothrombin Time 24.2 SEC (10.0-13.1)
[2022-12-18 06:11] LABS: Digoxin 0.7 ng/mL (0.8-2.0)
[2022-12-18 06:13] LABS: B Type Natriuretic Peptide 79 pg/mL (<100)
[2022-12-18 06:34] LABS: Anion Gap 12 (12-20); Blood Urea Nitrogen 30 mg/dL (9-16); Chloride 91 mmol/L (96-108); Estimated Glomerular Filt Rate 43; Glucose Random 160 mg/dL (60-115); Magnesium 2.1 mg/dL (1.6-2.6); Potassium 3.3 mmol/L (3.3-5.1); Sodium 140 mmol/L (135-145)
[2022-12-18 06:43] LABS: Carbon Dioxide 40 mmol/L (22-29)
[2022-12-18 07:14] LABS: Glucose, Whole Blood 163 mg/dL (60-115)
[2022-12-18] MEDS: Fluticasone/Vilanterol 200/25 BLST.W.DEV 1 PUFF INHALE (07:51)
[2022-12-18] MEDS: Albuterol/Iprat 2.5/0.5MG 3 ML AMPUL.NEB INHALE ×4 (07:51→18:42)
[2022-12-18] MEDS: Ezetimibe 10 MG TABLET PO (08:00)
[2022-12-18] MEDS: acetaZOLAMIDE 250 MG TABLET PO ×2 (08:00→20:22)
[2022-12-18] MEDS: Cyanocobalamin (Vitamin B-12) 1,000 MCG TABLET 1000 MCG PO (08:00)
[2022-12-18] MEDS: dilTIAZem HCL CD 180 MG CAP.ER.24H PO (08:00)
[2022-12-18] MEDS: Ferrous Sulfate 324 MG TABLET.DR PO (08:00)
[2022-12-18] MEDS: Insulin Lispro 100 UNIT/ML 3 ML VIAL SUBCUT ×4 (08:00→20:30)
[2022-12-18] MEDS: Ascorbic Acid 500 MG TABLET PO (08:00)
[2022-12-18 10:58] LABS: Glucose, Whole Blood 223 mg/dL (60-115)
--- NOTE | 2022-12-18 14:35 | PM.PNCARD ---
Subjective Subjective Date of Service: 12/18/22 Interval history: Seen examined at bedside. Still has significant peripheral edema. On Lasix drip. Physical Exam Vital Signs: Last Vital Signs Temp 97.1 F 12/18/22 10:57 Pulse 74 12/18/22 12:00 Resp 16 12/18/22 12:00 BP 104/55 L 12/18/22 10:57 Pulse Ox 96 12/18/22 10:57 O2 Del Method Nasal Cannula 12/18/22 10:57 O2 Flow Rate 2 12/18/22 10:57 BMI result Body Mass Index 32.4 GENERAL APPEARANCE: in no acute distress, pleasant. NECK: no carotid bruit, + jugular venous distention. SKIN: no suspicious lesions, warm and dry. HEART: no murmurs, irregular rate and rhythm. LUNGS: clear to auscultation bilaterally. ABDOMEN: soft, nontender. EXTREMITIES: 2+ edema mid legs. PERIPHERAL PULSES: equal. NEUROLOGIC: No gross deficits, AAO X 3 Objective Labs and Meds 12/16/22 06:30 12/18/22 05:29 Lab results: Laboratory Results - last 24 hr 12/17/22 12/17/22 12/17/22 15:28 20:10 Unknown PT INR Sodium Potassium Chloride Carbon Dioxide Anion Gap BUN Creatinine Estim Creat Clear Calc Estimated GFR POC Glucose 215 H 173 H Random Glucose Calcium Magnesium B-Natriuretic Peptide Urine Color Yellow Urine Appearance Clear Urine pH 8.5 Ur Specific [place] 1.010 Urine Protein Negative Urine Glucose (UA) Negative Urine Ketones Negative Urine Blood Negative Urine Nitrite Negative Ur Leukocyte Esterase Negative Urine RBC 0-2 Urine WBC 0-5 Ur Squamous Epith Cells 0-2 Urine Bacteria None Seen Hyaline Casts 0-2 U Random Total Protein Urine Creatinine Digoxin 12/17/22 12/18/22 12/18/22 Unknown 05:29 05:29 PT 24.2 H INR 2.0 H Sodium 140 Potassium 3.3 Chloride 91 L Carbon Dioxide 40 H* Anion Gap 12 BUN 30 H Creatinine 1.58 H Estim Creat Clear Calc 44.0 Estimated GFR 43 POC Glucose Random Glucose 160 H Calcium 9.0 Magnesium 2.1 B-Natriuretic Peptide Urine Color Urine Appearance Urine pH Ur Specific [place] Urine Protein Urine Glucose (UA) Urine Ketones Urine Blood Urine Nitrite Ur Leukocyte Esterase Urine RBC Urine WBC Ur Squamous Epith Cells Urine Bacteria Hyaline Casts U Random Total Protein < 7 Urine Creatinine 19.91 Digoxin 12/18/22 12/18/22 12/18/22 05:29 05:29 07:09 PT INR Sodium Potassium Chloride Carbon Dioxide Anion Gap BUN Creatinine Estim Creat Clear Calc Estimated GFR POC Glucose 163 H Random Glucose Calcium Magnesium B-Natriuretic Peptide 79 Urine Color Urine Appearance Urine pH Ur Specific [place] Urine Protein Urine Glucose (UA) Urine Ketones Urine Blood Urine Nitrite Ur Leukocyte Esterase Urine RBC Urine WBC Ur Squamous Epith Cells Urine Bacteria Hyaline Casts U Random Total Protein Urine Creatinine Digoxin 0.7 L 12/18/22 10:53 PT INR Sodium Potassium Chloride Carbon Dioxide Anion Gap BUN Creatinine Estim Creat Clear Calc Estimated GFR POC Glucose 223 H Random Glucose Calcium Magnesium B-Natriuretic Peptide Urine Color Urine Appearance Urine pH Ur Specific [place] Urine Protein Urine Glucose (UA) Urine Ketones Urine Blood Urine Nitrite Ur Leukocyte Esterase Urine RBC Urine WBC Ur Squamous Epith Cells Urine Bacteria Hyaline Casts U Random Total Protein Urine Creatinine Digoxin Progress Note: A&P Assessment and plan (1) CHF (congestive heart failure): Status: Acute Plan [age] year gentleman presenting with right more than left heart failure. On Lasix drip and diuresing okay currently. He still has significant peripheral edema and volume overload. Continue the Lasix at the same dose. Monitor electrolytes closely. Consider nephrotic syndrome workup. Thank you for allowing me to participate in the care of your patient. Please feel free to contact me if you have any questions. Time Spent With Patient Time: Total time managing care of this patient today ____ minutes. Progress Note: Quality Stroke Does the patient have a stroke diagnosis?: No Procedures Date of Service Date of Service: 12/18/22
--- NOTE | 2022-12-18 15:37 | P.PNIM_ITS ---
Subjective Subjective Date of Service: 12/18/22 Interval History: Sitting in bed denies chest pain, no palpitations, no lightheadedness, no dizziness tolerating diet no nausea no vomiting, no abdominal pain or diarrhea no hemoptysis, no hematemesis, no shortness of breath at rest , but with activity. Review of Systems All other system reviewed and negative. Physical Exam Vital Signs: Vital Signs: Last Vital Signs Temp 97.1 F 12/18/22 10:57 Pulse 74 12/18/22 12:00 Resp 16 12/18/22 12:00 BP 104/55 L 12/18/22 10:57 Pulse Ox 96 12/18/22 10:57 O2 Del Method Nasal Cannula 12/18/22 10:57 O2 Flow Rate 2 12/18/22 10:57 BMI result Body Mass Index 32.4 Const: Other: Gen: in no acute distress HEENT: sclera anicteric, moist mucus membranes Neck: supple, no JVD Lungs: bibasilar inspiratory crackles, no respiratory distrss Heart: irregular, no murmurs Abd: soft, non-tender, non-distended Ext: 2+ BLE pitting edema improving. Skin: warm/well-perfused Neuro: alert and oriented x3, no focal findings Psych: appropriate affect Objective Data Active Medications Acetaminophen (Acetaminophen 325 Mg Tablet) 650 mg PO Q6H PRN PRN Reason: Pain, Mild (Pain Scale 1-3) Acetazolamide (Acetazolamide 250 Mg Tablet) 250 mg PO BID COUNT INCLUDES THE [facility] Last Admin: 12/18/22 08:00 Dose: 250 mg Documented By: DORIS Albuterol Sulfate (Albuterol Sulfate 90 Mcg 8 Gm Inhaler) 1 puff INHALE QID PRN PRN Reason: shortness of breath or wheezing Albuterol/Ipratropium (Albuterol/Iprat 2.5/0.5mg 3 Ml Ampul.Neb) 3 ml INHALE Q4H PRN PRN Reason: Wheezing Albuterol/Ipratropium (Albuterol/Iprat 2.5/0.5mg 3 Ml Ampul.Neb) 3 ml INHALE RQ4H WHILE AWAKE COUNT INCLUDES THE [facility] Last Admin: 12/18/22 11:59 Dose: 3 ml Documented By: JESS Ascorbic Acid (Ascorbic Acid 500 Mg Tablet) 500 mg PO DAILY COUNT INCLUDES THE [facility] Last Admin: 12/18/22 08:00 Dose: 500 mg Documented By: DORIS Cyanocobalamin (Cyanocobalamin (Vitamin B-12) 1,000 Mcg Tablet) 1,000 mcg PO DAILY COUNT INCLUDES THE [facility] Last Admin: 12/18/22 08:00 Dose: 1,000 mcg Documented By: DORIS Dextrose (Dextrose 50 % 25 Gm/50 Ml Syringe) 25 gm IVPUSH Q15M PRN; Protocol PRN Reason: per Hypoglycemia Standing Ord. Digoxin (Digoxin 0.125 Mg Tablet) 0.125 mg PO Q2D COUNT INCLUDES THE [facility] Diltiazem HCl (Diltiazem Hcl Cd 180 Mg Cap.Er.24h) 180 mg PO DAILY COUNT INCLUDES THE [facility]; Protocol Last Admin: 12/18/22 08:00 Dose: 180 mg Documented By: DORIS Ezetimibe (Ezetimibe 10 Mg Tablet) 10 mg PO DAILY COUNT INCLUDES THE [facility] Last Admin: 12/18/22 08:00 Dose: 10 mg Documented By: DORIS Ferrous Sulfate (Ferrous Sulfate 324 Mg Tablet.) 324 mg PO DAILY COUNT INCLUDES THE [facility] Last Admin: 12/18/22 08:00 Dose: 324 mg Documented By: DORIS Fluticasone/Vilanterol (Fluticasone/Vilanterol 200/25 Blst.W.Dev) 1 puff INHALE RDAILY COUNT INCLUDES THE [facility] Last Admin: 12/18/22 07:51 Dose: 1 puff Documented By: JESS Glucose (Glucose Gel 15 Gm Gel..Gram.) 15 gm PO Q15M PRN; Protocol PRN Reason: per Hypoglycemia Standing Ord. Furosemide 200 mg/ Sodium (Chloride) 100 mls @ 2.5 mls/hr IVCONT .Q24H COUNT INCLUDES THE [facility] Last Admin: 12/17/22 08:38 Dose: 5 mg/hr, 2.5 mls/hr Documented By: DORIS Insulin Human Lispro (Insulin Lispro 100 Unit/Ml 3 Ml Vial) 0 unit SUBCUT QIDACHS COUNT INCLUDES THE [facility]; Protocol Last Admin: 12/18/22 12:19 Dose: 7 unit Documented By: DORIS Melatonin (Melatonin 3 Mg Tablet) 6 mg PO BEDTIME PRN PRN Reason: Insomnia Ondansetron HCl (Ondansetron Hcl 4 Mg/2 Ml Vial) 4 mg IVPUSH Q8H PRN PRN Reason: Nausea and Vomiting Pharmacy Consult (Consult Rx Perform Med Rec) 1 each MISCELLANE ONCE PRN PRN Reason: Consult order Pravastatin Sodium (Pravastatin Sodium 80 Mg Tablet) 80 mg PO BEDTIME COUNT INCLUDES THE [facility] Last Admin: 12/17/22 20:32 Dose: 80 mg Documented By: WALDO Sodium Chloride (0.9 % Sodium Chloride Flush 3 Ml Syringe) 3 ml IVFLUSH QSHIFT COUNT INCLUDES THE [facility] Last Admin: 12/18/22 08:00 Dose: Not Given Documented By: DORIS Non-Admin Reason: IV Running Tiotropium [place] (Tiotropium [place] 2.5 Mcg Inhaler) 2 puff INHALE RDAILY COUNT INCLUDES THE [facility] Last Admin: 12/18/22 07:52 Dose: 2 puff Documented By: JESS Warfarin Sodium (Warfarin Sodium 5 Mg Tablet) 5 mg PO MoWeFr@1800 COUNT INCLUDES THE [facility] Last Admin: 12/17/22 17:53 Dose: 5 mg Documented By: DORIS Warfarin Sodium (Warfarin Sodium 2.5 Mg Tablet) 2.5 mg PO SuTuThSa@1800 COUNT INCLUDES THE [facility] Last Admin: 12/16/22 17:25 Dose: 2.5 mg Documented By: SOFFAA Labs 12/16/22 06:30 12/18/22 05:29 Labs: Laboratory Results - last 24 hr 12/17/22 12/17/22 12/17/22 15:28 20:10 Unknown PT INR Anion Gap Estim Creat Clear Calc Estimated GFR POC Glucose 215 H 173 H Random Glucose Calcium Magnesium B-Natriuretic Peptide Urine Color Yellow Urine Appearance Clear Urine pH 8.5 Ur Specific [place] 1.010 Urine Protein Negative Urine Glucose (UA) Negative Urine Ketones Negative Urine Blood Negative Urine Nitrite Negative Ur Leukocyte Esterase Negative Urine RBC 0-2 Urine WBC 0-5 Ur Squamous Epith Cells 0-2 Urine Bacteria None Seen Hyaline Casts 0-2 U Random Total Protein Urine Creatinine Digoxin 12/17/22 12/18/22 12/18/22 Unknown 05:29 05:29 PT 24.2 H INR 2.0 H Anion Gap 12 Estim Creat Clear Calc 44.0 Estimated GFR 43 POC Glucose Random Glucose 160 H Calcium 9.0 Magnesium 2.1 B-Natriuretic Peptide Urine Color Urine Appearance Urine pH Ur Specific [place] Urine Protein Urine Glucose (UA) Urine Ketones Urine Blood Urine Nitrite Ur Leukocyte Esterase Urine RBC Urine WBC Ur Squamous Epith Cells Urine Bacteria Hyaline Casts U Random Total Protein < 7 Urine Creatinine 19.91 Digoxin 12/18/22 12/18/22 12/18/22 05:29 05:29 07:09 PT INR Anion Gap Estim Creat Clear Calc Estimated GFR POC Glucose 163 H Random Glucose Calcium Magnesium B-Natriuretic Peptide 79 Urine Color Urine Appearance Urine pH Ur Specific [place] Urine Protein Urine Glucose (UA) Urine Ketones Urine Blood Urine Nitrite Ur Leukocyte Esterase Urine RBC Urine WBC Ur Squamous Epith Cells Urine Bacteria Hyaline Casts U Random Total Protein Urine Creatinine Digoxin 0.7 L 12/18/22 10:53 PT INR Anion Gap Estim Creat Clear Calc Estimated GFR POC Glucose 223 H Random Glucose Calcium Magnesium B-Natriuretic Peptide Urine Color Urine Appearance Urine pH Ur Specific [place] Urine Protein Urine Glucose (UA) Urine Ketones Urine Blood Urine Nitrite Ur Leukocyte Esterase Urine RBC Urine WBC Ur Squamous Epith Cells Urine Bacteria Hyaline Casts U Random Total Protein Urine Creatinine Digoxin Microbiology Microbiology Results: Microbiology 12/15/22 19:22 Blood Culture - Preliminary Blood - Venous No growth after 48 hours. 12/15/22 18:23 Blood Culture - Preliminary Blood - Venous No growth after 48 hours. Assessment and Plan (1) CHF (congestive heart failure): Status: Acute Plan 72yo M with chronic AF on warfarin, chronic HFpEF, HTN, venous stasis, HLD, DM2, chronic hypoxia due to COPD sent in by [employer] Dr Bird due to CHF exacerbation resistant to oral diuresis acute-chronic R-sided HF - feeling better but continued to have shortness of breath with activity - continue IV furosemide 5 mg/h, continue acetazolamide 250 b.i.d., case discussed with Cardiology monitor I+O/weight/BMP/Mg/BNP, Cardiology following Urinary protein negative - TTE 12/16/22: - Normal left ventricular size, thickness, and systolic function. The visually estimated ejection fraction is between 65-70%.? ? ? There is no evidence of regional wall motion abnormalities.? ? ? - Moderately increased right ventricular cavity size.? There is? normal right ventricular systolic function.? - The left atrium is severely dilated.? The right atrium is? ? ? severely dilated.? - There is moderate tricuspid valve regurgitation.? The right? ? ventricular systolic pressure is 56 mmHg.? Significantly elevated right atrial pressure.? Moderate to severe pulmonary hypertension is present.? rate-controlled chronic AF - continue warfarin, daily INR [2.0 today] - continue digoxin, dose changed to every other day, diltiazem macrocytic anemia -further drop in hematocrit to 28.7 no active bleed noted, patient on Coumadin INR therapeutic - B12/FA WNL, stool guaiac not done /will check iron studies/follow CBC heme consult if continue to have low hematocrit HLD - statin, ezetimibe chronic hypoxic RF due to COPD - suppl O2, Breo, Spiriva, nebs DM2 - blood sugar improving on correction-dose lispro scale, continue DM diet VTE ppx - warfarin dispo - eventual home with VNA In my clinical judgment, the patient requires continued inpatient hospitalization for the following reasons: IV diuresis Time Spent With Patient Time: Total time managing care of this patient today ____ minutes. Quality Stroke Does the patient have a stroke diagnosis?: No VTE Prior VTE?: No VTE Risk Level:: Medical - moderate - high VTE Device Contraindication: Treatment Not Indicated VTE Drug Contraindication: N/A - Med Ordered
[2022-12-18 16:32] LABS: Glucose, Whole Blood 128 mg/dL (60-115)
[2022-12-18] MEDS: Warfarin Sodium 2.5 MG TABLET PO (17:39)
[2022-12-18] MEDS: 0.9 % Sodium Chloride Flush 3 ML SYRINGE IVFLUSH (20:22)
[2022-12-18] MEDS: Pravastatin Sodium 80 MG TABLET PO (20:22)
[2022-12-18] MEDS: Furosemide 200 MG in 0.9 % Sodium Chloride 80 ML IVCONT (20:31)
[2022-12-18 20:33] LABS: Glucose, Whole Blood 174 mg/dL (60-115)
[2022-12-19] VITALS (11 sets, daily range): BP systolic 110–118; BP diastolic 53–56; PULSE 64–89; RESP 18–20; TEMP 36.4–37; O2SAT 90–98; BMI 32.4
[2022-12-19 05:40] LABS: Hematocrit 29.3 % (42.0-52.0); Hemoglobin 8.8 g/dl (14.0-18.0); Mean Corpuscular Hemoglobin 30.3 pg (27.0-33.0); Mean Platelet Volume 9.6 fL (9.4-12.4); Platelet Count 221 X10*3/uL (160-400); Red Cell Distribution Width 17.8 % (11.0-16.0); White Blood Count 6.9 X10*3/uL (4.8-10.8)
[2022-12-19 05:41] LABS: Immature Retic Fraction 20.5 % (2.3-13.4); Retic HGB Equivalent 30.5 pg (30.0-35.0); Reticulocyte Percent 2.2 % (0.5-1.8); Reticulocytes Absolute 0.064 X10*6/uL (0.026-0.095)
[2022-12-19 05:48] LABS: Prothrombin Time 23.5 SEC (10.0-13.1)
[2022-12-19 06:00] LABS: Anion Gap 12 (12-20); Blood Urea Nitrogen 33 mg/dL (9-16); Calcium 8.6 mg/dL (8.4-10.2); Carbon Dioxide 37 mmol/L (22-29); Chloride 93 mmol/L (96-108); Creatinine Clr Calc Pharmacy 42.9; Estimated Glomerular Filt Rate 42; Glucose Random 154 mg/dL (60-115); Iron 33 mcg/dL (45-160); Lactate Dehydrogenase 155 U/L (118-273); Percent Iron Saturation 13 % (15-50); Potassium 3.4 mmol/L (3.3-5.1); Sodium 139 mmol/L (135-145); Total Iron Binding Capacity 262 mcg/dL (228-428); Unsaturated Iron Binding 229 ug/dL
[2022-12-19 07:26] LABS: Glucose, Whole Blood 151 mg/dL (60-115)
[2022-12-19] MEDS: Albuterol/Iprat 2.5/0.5MG 3 ML AMPUL.NEB INHALE ×4 (07:31→18:41)
[2022-12-19] MEDS: Fluticasone/Vilanterol 200/25 BLST.W.DEV 1 PUFF INHALE (07:32)
[2022-12-19] MEDS: acetaZOLAMIDE 250 MG TABLET PO ×2 (08:50→20:21)
[2022-12-19] MEDS: Insulin Lispro 100 UNIT/ML 3 ML VIAL SUBCUT ×4 (08:50→20:38)
[2022-12-19] MEDS: Ferrous Sulfate 324 MG TABLET.DR PO (08:50)
[2022-12-19] MEDS: dilTIAZem HCL CD 180 MG CAP.ER.24H PO (08:50)
[2022-12-19] MEDS: Ezetimibe 10 MG TABLET PO (08:50)
[2022-12-19] MEDS: Ascorbic Acid 500 MG TABLET PO (08:50)
[2022-12-19] MEDS: Omeprazole 20 MG CAPSULE.DR PO (08:51)
[2022-12-19] MEDS: Cyanocobalamin (Vitamin B-12) 1,000 MCG TABLET 1000 MCG PO (08:51)
[2022-12-19] MEDS: 0.9 % Sodium Chloride Flush 3 ML SYRINGE IVFLUSH ×2 (08:52→20:21)
--- NOTE | 2022-12-19 09:50 | P.CNGI_ITS ---
History of Present Illness Data of Consult Service Date: 12/19/22 Requesting physician: Dunia Shaw Primary Care Provider: Grayson Berrios DO, MD [facility] Reason for consult: anemia on coumadin 72 YM with chronic atrial fibrillation on anticoagulation, essential hypertension, congestive heart failure with preserved ejection fraction, venous stasis, mixed hyperlipidemia, [id number] diabetes mellitus, chronic hypoxemic respiratory failure due to COPD [place] [facility] [place] evaluation of dyspnea.? Patient states he has been having dyspnea, worse with exertion for the last few weeks.? Also reports bilateral leg swelling without pain.? Admits orthopnea and PND.? Patient saw his copy chief on 12/15/22, Dr. Bird. He was sent by Cardiology for IV diuresis for decompensation of compensated heart failure and failure of p.o. diuretics.? He denied fever, chills, productive cough.? His recently had COVID-19 pneumonia recently.? No chest discomfort, palpitations, abdominal pain, changes in urinary or bowel habits. GI consulted due to acute on chronic macrocytic anemia History obtained from the patient and his , Farida, who was at the bedside. Pt reports a hx of chronic anemia and has been taking PO iron and vitamin C for the past several years. Patient denies symptoms of heartburn, dysphagia, nausea, vomiting, change in appetite. Hx of weight gain due to edema. Pt denies past hx of GIB or PUD. Pt reports black stools (due to oral iron) and denies recent change in bowel habits, constipation, diarrhea, rectal bleeding. Patient has AF, CHF and COPD (On home O2 at 2 L/m by MS since August,). Pt has been on warfarin for AF and CHF. Per pt's pt was tested for sleep apnea and study was negative Patient denies known family history of colon polyps, colon cancer or other GI malignancies. PAST EGD/COLONOSCOPY: Patient reports having an upper endoscopy and a colonoscopy at [facility] [place] [facility] greater than 5 years ago - records were requested. -further drop in hematocrit to 28.7 no active bleed noted, patient on Coumadin INR therapeutic - B12/FA WNL, stool guaiac not done Iron studies suggestive of anemia of chronic disease Hemolysis miranda is pending - normal LDH with elevated retic count. PAST GI HISTORY BY REVIEW OF MEDICAL RECORDS: Review of Systems 2 Constitutional: Constitutional: Reports fatigue and Reports malaise Cardiovascular: Cardiovascular: Reports dyspnea on exertion and Reports orthopnea Respiratory: Respiratory: Reports dyspnea on exertion Gastrointestinal: Gastrointestinal: Reports no additional gastrointestinal complaints Genitourinary: Genitourinary: Reports no additional male genitourinary complaints Endocrine: Endocrine: Reports fatigue PMFSH Past Medical History Medical History Macrocytic anemia CHF (congestive heart failure) Chronic a-fib Partial small bowel obstruction Anemia Diabetes mellitus CKD (chronic kidney disease) HTN (hypertension) Biatrial enlargement Pulmonary hypertension Chronic heart failure with preserved ejection fraction (HFpEF) HLD (hyperlipidemia) Current use of anticoagulant therapy Family History Family History Father Cancer Mother No problems noted. Surgical History Surgical History History of nephrectomy Hx of hernia repair Social History Social History Household Members: Spouse Housing: House Do you presently have visiting nurse or other home services: No Patient Tobacco Use Status: Former Tobacco user Second Hand Smoke Exposure: No Advance Directives Date on File: 06/01/00 service: No Meds Allergies Allergy/AdvReac Type Severity Reaction Status Date / Time No Known Allergies Allergy Verified 07/24/23 11:12 Active Medications: Current Medications Acetaminophen (Acetaminophen 325 Mg Tablet) 650 mg PO Q6H PRN PRN Reason: Pain, Mild (Pain Scale 1-3) Acetazolamide (Acetazolamide 250 Mg Tablet) 250 mg PO BID [facility] Last Admin: 12/19/22 08:50 Dose: 250 mg Albuterol Sulfate (Albuterol Sulfate 90 Mcg 8 Gm Inhaler) 1 puff INHALE QID PRN PRN Reason: shortness of breath or wheezing Albuterol/Ipratropium (Albuterol/Iprat 2.5/0.5mg 3 Ml Ampul.Neb) 3 ml INHALE Q4H PRN PRN Reason: Wheezing Albuterol/Ipratropium (Albuterol/Iprat 2.5/0.5mg 3 Ml Ampul.Neb) 3 ml INHALE RQ4H WHILE AWAKE [facility] Last Admin: 12/19/22 07:31 Dose: 3 ml Ascorbic Acid (Ascorbic Acid 500 Mg Tablet) 500 mg PO DAILY [facility] Last Admin: 12/19/22 08:50 Dose: 500 mg Cyanocobalamin (Cyanocobalamin (Vitamin B-12) 1,000 Mcg Tablet) 1,000 mcg PO DAILY [facility] Last Admin: 12/19/22 08:51 Dose: 1,000 mcg Dextrose (Dextrose 50 % 25 Gm/50 Ml Syringe) 25 gm IVPUSH Q15M PRN; Protocol PRN Reason: per Hypoglycemia Standing Ord. Digoxin (Digoxin 0.125 Mg Tablet) 0.125 mg PO Q2D [facility] Diltiazem HCl (Diltiazem Hcl Cd 180 Mg Cap.Er.24h) 180 mg PO DAILY [facility]; Protocol Last Admin: 12/19/22 08:50 Dose: 180 mg Ezetimibe (Ezetimibe 10 Mg Tablet) 10 mg PO DAILY [facility] Last Admin: 12/19/22 08:50 Dose: 10 mg Ferrous Sulfate (Ferrous Sulfate 324 Mg Tablet.) 324 mg PO DAILY [facility] Last Admin: 12/19/22 08:50 Dose: 324 mg Fluticasone/Vilanterol (Fluticasone/Vilanterol 200/25 Blst.W.Dev) 1 puff INHALE RDAILY [facility] Last Admin: 12/19/22 07:32 Dose: 1 puff Glucose (Glucose Gel 15 Gm Gel..Gram.) 15 gm PO Q15M PRN; Protocol PRN Reason: per Hypoglycemia Standing Ord. Furosemide 200 mg/ Sodium (Chloride) 100 mls @ 2.5 mls/hr IVCONT .Q24H [facility] Last Admin: 12/18/22 20:31 Dose: 5 mg/hr, 2.5 mls/hr Insulin Human Lispro (Insulin Lispro 100 Unit/Ml 3 Ml Vial) 0 unit SUBCUT QIDACHS [facility]; Protocol Last Admin: 12/19/22 08:50 Dose: 5 unit Melatonin (Melatonin 3 Mg Tablet) 6 mg PO BEDTIME PRN PRN Reason: Insomnia Omeprazole (Omeprazole 20 Mg Capsule.) 20 mg PO DAILY@0630 [facility] Last Admin: 12/19/22 08:51 Dose: 20 mg Ondansetron HCl (Ondansetron Hcl 4 Mg/2 Ml Vial) 4 mg IVPUSH Q8H PRN PRN Reason: Nausea and Vomiting Pharmacy Consult (Consult Rx Perform Med Rec) 1 each MISCELLANE ONCE PRN PRN Reason: Consult order Pravastatin Sodium (Pravastatin Sodium 80 Mg Tablet) 80 mg PO BEDTIME [facility] Last Admin: 12/18/22 20:22 Dose: 80 mg Sodium Chloride (0.9 % Sodium Chloride Flush 3 Ml Syringe) 3 ml IVFLUSH QSHIFT [facility] Last Admin: 12/19/22 08:52 Dose: 3 ml Tiotropium [place] (Tiotropium [place] 2.5 Mcg Inhaler) 2 puff INHALE RDAILY [facility] Last Admin: 12/19/22 07:31 Dose: 2 puff Warfarin Sodium (Warfarin Sodium 5 Mg Tablet) 5 mg PO MoWeFr@1800 [facility] Last Admin: 12/17/22 17:53 Dose: 5 mg Warfarin Sodium (Warfarin Sodium 2.5 Mg Tablet) 2.5 mg PO SuTuThSa@1800 [facility] Last Admin: 12/18/22 17:39 Dose: 2.5 mg Home Medications Medication Instructions Recorded Confirmed Last Taken Type ascorbic acid (vitamin C) 500 mg 500 mg PO DAILY 05/01/20 07/30/23 07/30/23 History tablet ezetimibe 10 mg tablet 10 mg PO DAILY 05/01/20 07/30/23 07/30/23 History ferrous sulfate 325 mg (65 mg 325 mg PO DAILY 05/01/20 07/30/23 07/30/23 History iron) tablet metformin 500 mg tablet 500 mg PO BIDWM 05/01/20 07/30/23 07/30/23 History tiotropium bromide 18 mcg capsule 18 mcg PO DAILY 05/01/20 07/30/23 07/30/23 History with inhalation device albuterol sulfate 90 mcg/actuation 1 inh inhalation QID PRN shortness 11/10/22 07/30/23 07/30/23 History aerosol inhaler of breath or wheezing cyanocobalamin (vitamin B-12) 1,000 mcg PO DAILY 12/15/22 07/30/23 07/30/23 History 1,000 mcg tablet warfarin 2.5 mg tablet 2.5 mg PO MO 04/03/23 07/30/23 07/30/23 History warfarin 5 mg tablet 5 mg PO SUTUWETHFRSA 05/22/23 07/30/23 07/30/23 History digoxin 125 mcg (0.125 mg) tablet 125 mcg PO SUTUTHSA@2100 07/30/23 07/30/23 07/29/23 History fluticasone furoate 100 1 inh inhalation DAILY 07/30/23 07/30/23 07/30/23 History mcg-vilanterol 25 mcg/dose inhalation powder (Breo Ellipta) pravastatin 80 mg tablet 80 mg PO BEDTIME 07/30/23 07/30/23 07/29/23 History Physical Exam 2 Vital Signs: Vital Signs: Last Vital Signs Temp 97.5 F 12/19/22 07:29 Pulse 71 12/19/22 07:33 Resp 18 12/19/22 07:33 BP 117/54 L 12/19/22 07:29 Pulse Ox 95 12/19/22 07:29 O2 Del Method Nasal Cannula 12/19/22 07:29 O2 Flow Rate 2 12/19/22 07:29 BMI result Body Mass Index 32.4 Const: General: no acute distress Nutritional Appearance: obese O rientation/consciousness: patient oriented x3 HEENT: Head: Yes normal to inspection Ears: hearing grossly normal bilaterally Eyes: Sclerae: sclerae normal Pupils: Equal, round and reactive pupils present Neck: Neck: Yes normal visual inspection Chest: Chest palpation & inspection: normal inspection of the chest Resp: Effort & Inspection: normal respiratory effort Auscultation: rales (Bibasilar rales) Cardio: Palpation: normal PMI Rate: regular rate Rhythm: other (Irregularly irregular) Heart sounds: S1 normal heart sound present, S2 normal heart sound present and no murmurs GI: Palpation (GI): Soft to palpation, nontender and No hepatosplenomegaly present Auscultation: normal bowel sounds Rectal Exam - Male: Yes deferred Skin: General skin exam: no rashes or lesions noted Neuro: General: patient oriented x3, gait normal and moves all extremities Cranial nerves: Yes Equal, round and reactive pupils present Extrem: General: Yes pedal edema (1+ pitting edema bilaterally) and Yes venous stasis dermatitis Psych: Appearance: grossly normal Mental Status: mental status grossly normal Results Labs 12/25/22 06:31 12/25/22 06:31 Labs: Short CBC 12/19/22 Range/Units 05:25 WBC 6.9 (4.8-10.8) X10*3/uL Hgb 8.8 L (14.0-18.0) g/dl Hct 29.3 L (42.0-52.0) % Plt Count 221 (160-400) X10*3/uL BMP 12/19/22 05:25 Sodium 139 Potassium 3.4 Chloride 93 L Carbon Dioxide 37 H BUN 33 H Creatinine 1.62 H Calcium 8.6 Microbiology Microbiology Results: Microbiology 12/15/22 19:22 Blood - Venous Blood Culture - Preliminary No growth after 48 hours. 12/15/22 18:23 Blood - Venous Blood Culture - Preliminary No growth after 48 hours. Assessment and Plan (1) Anemia: Status: Inactive (2) Current use of anticoagulant therapy: Status: Inactive Plan 72 YM with chronic atrial fibrillation on anticoagulation, essential hypertension, congestive heart failure with preserved ejection fraction, venous stasis, mixed hyperlipidemia, [id number] diabetes mellitus, chronic hypoxemic respiratory failure due to COPD [place] [facility] [place] evaluation of dyspnea and edema.? GI consulted due to acute on chronic macrocytic anemia Pt reports a hx of chronic anemia and has been taking PO iron and vitamin C for the past several years. Pt denies past hx of GIB or PUD. Pt reports black stools (due to oral iron) and denies recent change in bowel habits, constipation, diarrhea, rectal bleeding. Patient has AF, CHF and COPD (On home O2 at 2 L/m by MS since August,). Pt has been on warfarin for AF and CHF. Per pt's pt was tested for sleep apnea and study was negative Iron studies suggestive of anemia of chronic disease Hemolysis miranda is pending - normal LDH with elevated retic count. Anemia is likely multifactorial - a combination of DELMA and anemia of chronic disease. RECOMMENDATIONS: 1. Monitor CBC daily and continue Omeprazole daily 2. Stool occult blood x 3 - if positive, further evaluation with EGD and Colonoscopy can be scheduled as an outpatient after CHF improves Pt will need cardiac clearane for the procedures and will need to be bridged with Lovenox. Time Spent With Patient Time: Total time managing care of this patient today ____ minutes. Procedures Date of Service Date of Service: 07/31/23
--- NOTE | 2022-12-19 10:10 | MHC.CM.PN ---
Per ROUNDS discussion, Patient is still on a Lasix Drip and in need of a GI Consult and is not yet medically cleared for dc. PT recommends home/with services and CM will continue to follow.
[2022-12-19 11:04] LABS: Ferritin 127 ng/mL (20-250)
[2022-12-19 11:16] LABS: Glucose, Whole Blood 207 mg/dL (60-115)
--- NOTE | 2022-12-19 12:39 | PM.PNCARD ---
Subjective Subjective Date of Service: 12/19/22 Interval history: Seen and examined at bedside. Still overloaded but improving. Physical Exam Vital Signs: Last Vital Signs Temp 97.6 F 12/19/22 11:46 Pulse 64 12/19/22 11:46 Resp 20 12/19/22 11:46 BP 116/53 L 12/19/22 11:46 Pulse Ox 98 12/19/22 11:46 O2 Del Method Nasal Cannula 12/19/22 11:46 O2 Flow Rate 2 12/19/22 11:46 BMI result Body Mass Index 32.4 GENERAL APPEARANCE: in no acute distress, pleasant. NECK: no carotid bruit, + jugular venous distention. SKIN: no suspicious lesions, warm and dry. HEART: no murmurs, irregular rate and rhythm. LUNGS: clear to auscultation bilaterally. ABDOMEN: soft, nontender. EXTREMITIES: 1-2+ edema mid legs. PERIPHERAL PULSES: equal. NEUROLOGIC: No gross deficits, AAO X 3 Objective Labs and Meds 12/19/22 05:25 12/19/22 05:25 Lab results: Laboratory Results - last 24 hr 12/18/22 12/18/22 12/19/22 16:29 20:25 05:25 WBC 6.9 RBC 2.90 L Hgb 8.8 L Hct 29.3 L MCV 101.0 H MCH 30.3 MCHC 30.0 L RDW 17.8 H Plt Count 221 MPV 9.6 Absolute Nucleated RBC 0.000 Nucleated RBC % (auto) 0.0 Absolute Retic Percent Retic Immature Retic Fraction Retic Hgb Equivalent PT INR Sodium Potassium Chloride Carbon Dioxide Anion Gap BUN Creatinine Estim Creat Clear Calc Estimated GFR POC Glucose 128 H 174 H Random Glucose Calcium Iron TIBC % Saturation Unsat Iron Binding Ferritin Lactate Dehydrogenase 12/19/22 12/19/22 12/19/22 05:25 05:25 05:25 WBC RBC Hgb Hct MCV MCH MCHC RDW Plt Count MPV Absolute Nucleated RBC Nucleated RBC % (auto) Absolute Retic 0.064 Percent Retic 2.2 H Immature Retic Fraction 20.5 H Retic Hgb Equivalent 30.5 PT 23.5 H INR 2.0 H Sodium 139 Potassium 3.4 Chloride 93 L Carbon Dioxide 37 H Anion Gap 12 BUN 33 H Creatinine 1.62 H Estim Creat Clear Calc 42.9 Estimated GFR 42 POC Glucose Random Glucose 154 H Calcium 8.6 Iron 33 L TIBC 262 % Saturation 13 L Unsat Iron Binding 229 Ferritin 127 Lactate Dehydrogenase 155 12/19/22 12/19/22 07:19 11:12 WBC RBC Hgb Hct MCV MCH MCHC RDW Plt Count MPV Absolute Nucleated RBC Nucleated RBC % (auto) Absolute Retic Percent Retic Immature Retic Fraction Retic Hgb Equivalent PT INR Sodium Potassium Chloride Carbon Dioxide Anion Gap BUN Creatinine Estim Creat Clear Calc Estimated GFR POC Glucose 151 H 207 H Random Glucose Calcium Iron TIBC % Saturation Unsat Iron Binding Ferritin Lactate Dehydrogenase Progress Note: A&P Assessment and plan (1) CHF (congestive heart failure): Status: Acute Plan 72 male with CHF. Mostly RHF. On Lasix gtt and diamox. DC cardizem. c/w digoxin. If HR fast then will add BB. Would avoid cardizem given CHF. Will reassess tomorrow, hopefully will be able to get off the gtt tomorrow. Time Spent With Patient Time: Total time managing care of this patient today ____ minutes. Progress Note: Quality Stroke Does the patient have a stroke diagnosis?: No Procedures Date of Service Date of Service: 12/19/22
--- NOTE | 2022-12-19 12:50 | P.PNIM_ITS ---
Subjective Subjective Date of Service: 12/19/22 Interval History: Sitting comfortably denies shortness of breath has been ambulating to bathroom with no chest pain or shortness of breath, provide history of black stools for a long time is on iron supplement not aware for how long, denies bright red blood per rectum no hematemesis no melena, no abdominal pain, no fevers no chills, no other acute issues overnight. Review of Systems All other system reviewed and negative. Physical Exam Vital Signs: Vital Signs: Last Vital Signs Temp 97.6 F 12/19/22 11:46 Pulse 64 12/19/22 11:46 Resp 20 12/19/22 11:46 BP 116/53 L 12/19/22 11:46 Pulse Ox 98 12/19/22 11:46 O2 Del Method Nasal Cannula 12/19/22 11:46 O2 Flow Rate 2 12/19/22 11:46 BMI result Body Mass Index 32.4 Const: Other: Gen: in no acute distress HEENT: sclera anicteric, moist mucus membranes Neck: supple, no JVD Lungs: bibasilar inspiratory crackles, no respiratory distrss Heart: irregular, no murmurs Abd: soft, non-tender, non-distended Ext: 2+ BLE pitting edema Skin: warm/well-perfused Neuro: alert and oriented x3, no focal findings Psych: appropriate affect Objective Data Active Medications Acetaminophen (Acetaminophen 325 Mg Tablet) 650 mg PO Q6H PRN PRN Reason: Pain, Mild (Pain Scale 1-3) Acetazolamide (Acetazolamide 250 Mg Tablet) 250 mg PO BID [facility] Last Admin: 12/19/22 08:50 Dose: 250 mg Documented By: GRISELDA Albuterol Sulfate (Albuterol Sulfate 90 Mcg 8 Gm Inhaler) 1 puff INHALE QID PRN PRN Reason: shortness of breath or wheezing Albuterol/Ipratropium (Albuterol/Iprat 2.5/0.5mg 3 Ml Ampul.Neb) 3 ml INHALE Q4H PRN PRN Reason: Wheezing Albuterol/Ipratropium (Albuterol/Iprat 2.5/0.5mg 3 Ml Ampul.Neb) 3 ml INHALE RQ4H WHILE AWAKE [facility] Last Admin: 12/19/22 11:30 Dose: 3 ml Documented By: CHAYO Ascorbic Acid (Ascorbic Acid 500 Mg Tablet) 500 mg PO DAILY [facility] Last Admin: 12/19/22 08:50 Dose: 500 mg Documented By: GRISELDA Cyanocobalamin (Cyanocobalamin (Vitamin B-12) 1,000 Mcg Tablet) 1,000 mcg PO DAILY [facility] Last Admin: 12/19/22 08:51 Dose: 1,000 mcg Documented By: GRISELDA Dextrose (Dextrose 50 % 25 Gm/50 Ml Syringe) 25 gm IVPUSH Q15M PRN; Protocol PRN Reason: per Hypoglycemia Standing Ord. Digoxin (Digoxin 0.125 Mg Tablet) 0.125 mg PO Q2D [facility] Diltiazem HCl (Diltiazem Hcl Cd 180 Mg Cap.Er.24h) 180 mg PO DAILY [facility]; Protocol Last Admin: 12/19/22 08:50 Dose: 180 mg Documented By: GRISELDA Ezetimibe (Ezetimibe 10 Mg Tablet) 10 mg PO DAILY [facility] Last Admin: 12/19/22 08:50 Dose: 10 mg Documented By: GRISELDA Ferrous Sulfate (Ferrous Sulfate 324 Mg Tablet.) 324 mg PO DAILY [facility] Last Admin: 12/19/22 08:50 Dose: 324 mg Documented By: GRISELDA Fluticasone/Vilanterol (Fluticasone/Vilanterol 200/25 Blst.W.Dev) 1 puff INHALE RDAILY [facility] Last Admin: 12/19/22 07:32 Dose: 1 puff Documented By: CHAYO Glucose (Glucose Gel 15 Gm Gel..Gram.) 15 gm PO Q15M PRN; Protocol PRN Reason: per Hypoglycemia Standing Ord. Furosemide 200 mg/ Sodium (Chloride) 100 mls @ 2.5 mls/hr IVCONT .Q24H [facility] Last Admin: 12/18/22 20:31 Dose: 5 mg/hr, 2.5 mls/hr Documented By: SUPA Insulin Human Lispro (Insulin Lispro 100 Unit/Ml 3 Ml Vial) 0 unit SUBCUT QIDACHS [facility]; Protocol Last Admin: 12/19/22 11:39 Dose: 7 unit Documented By: JOELLENORRSamantha Melatonin (Melatonin 3 Mg Tablet) 6 mg PO BEDTIME PRN PRN Reason: Insomnia Omeprazole (Omeprazole 20 Mg Capsule.) 20 mg PO DAILY@0630 [facility] Last Admin: 12/19/22 08:51 Dose: 20 mg Documented By: GRISELDA Ondansetron HCl (Ondansetron Hcl 4 Mg/2 Ml Vial) 4 mg IVPUSH Q8H PRN PRN Reason: Nausea and Vomiting Pharmacy Consult (Consult Rx Perform Med Rec) 1 each MISCELLANE ONCE PRN PRN Reason: Consult order Pravastatin Sodium (Pravastatin Sodium 80 Mg Tablet) 80 mg PO BEDTIME [facility] Last Admin: 12/18/22 20:22 Dose: 80 mg Documented By: SUPA Sodium Chloride (0.9 % Sodium Chloride Flush 3 Ml Syringe) 3 ml IVFLUSH QSHIFT [facility] Last Admin: 12/19/22 08:52 Dose: 3 ml Documented By: GRISELDA Tiotropium [place] (Tiotropium [place] 2.5 Mcg Inhaler) 2 puff INHALE RDAILY [facility] Last Admin: 12/19/22 07:31 Dose: 2 puff Documented By: CHAYO Warfarin Sodium (Warfarin Sodium 5 Mg Tablet) 5 mg PO MoWeFr@1800 [facility] Last Admin: 12/17/22 17:53 Dose: 5 mg Documented By: DORIS Warfarin Sodium (Warfarin Sodium 2.5 Mg Tablet) 2.5 mg PO SuTuThSa@1800 [facility] Last Admin: 12/18/22 17:39 Dose: 2.5 mg Documented By: DORIS Labs 12/19/22 05:25 12/19/22 05:25 Labs: Laboratory Results - last 24 hr 12/18/22 12/18/22 12/19/22 16:29 20:25 05:25 MCV 101.0 H MCH 30.3 MCHC 30.0 L RDW 17.8 H Plt Count 221 MPV 9.6 Absolute Nucleated RBC 0.000 Nucleated RBC % (auto) 0.0 Absolute Retic Percent Retic Immature Retic Fraction Retic Hgb Equivalent PT INR Anion Gap Estim Creat Clear Calc Estimated GFR POC Glucose 128 H 174 H Random Glucose Calcium Iron TIBC % Saturation Unsat Iron Binding Ferritin Lactate Dehydrogenase 12/19/22 12/19/22 12/19/22 05:25 05:25 05:25 MCV MCH MCHC RDW Plt Count MPV Absolute Nucleated RBC Nucleated RBC % (auto) Absolute Retic 0.064 Percent Retic 2.2 H Immature Retic Fraction 20.5 H Retic Hgb Equivalent 30.5 PT 23.5 H INR 2.0 H Anion Gap 12 Estim Creat Clear Calc 42.9 Estimated GFR 42 POC Glucose Random Glucose 154 H Calcium 8.6 Iron 33 L TIBC 262 % Saturation 13 L Unsat Iron Binding 229 Ferritin 127 Lactate Dehydrogenase 155 12/19/22 12/19/22 07:19 11:12 MCV MCH MCHC RDW Plt Count MPV Absolute Nucleated RBC Nucleated RBC % (auto) Absolute Retic Percent Retic Immature Retic Fraction Retic Hgb Equivalent PT INR Anion Gap Estim Creat Clear Calc Estimated GFR POC Glucose 151 H 207 H Random Glucose Calcium Iron TIBC % Saturation Unsat Iron Binding Ferritin Lactate Dehydrogenase Assessment and Plan (1) CHF (congestive heart failure): Status: Acute Plan 72yo M with chronic AF on warfarin, chronic HFpEF, HTN, venous stasis, HLD, DM2, chronic hypoxia due to COPD sent in by cupola liner Dr Bird due to CHF exacerbation resistant to oral diuresis acute-chronic R-sided HF - feeling better but continued to have lower extremity edema and basilar crackles - continue IV furosemide 5 mg/h, continue acetazolamide 250 b.i.d., case discussed with Cardiology monitor I+O/weight/BMP/Mg/BNP, Cardiology following Urinary protein negative - TTE 12/16/22: - Normal left ventricular size, thickness, and systolic function. The visually estimated ejection fraction is between 65-70%.There is no evidence of regional wall motion abnormalities.? ? ? - Moderately increased right ventricular cavity size.? There is?normal right ventricular systolic function.? - The left atrium is severely dilated.? The right atrium is severely dilated.? - There is moderate tricuspid valve regurgitation.? The right?ventricular systolic pressure is 56 mmHg.? Significantly elevated right atrial pressure.? Moderate to severe pulmonary hypertension,is present.? rate-controlled chronic AF - continue warfarin, daily INR [2.0 today] - continue digoxin, dose changed to every other day, diltiazem 180 mg daily macrocytic anemia -hematocrit 29.3 this morning improved from 28.7 no active bleed noted, patient on Coumadin INR therapeutic -B12/FA WNL, stool guaiac not done / iron studies consistent with anemia of chronic disease/LDH normal, hapto pending, retic mildly elevated Since patient on Coumadin will consult Gastroenterology HLD - statin, ezetimibe chronic hypoxic RF due to COPD - suppl O2, Breo, Spiriva, nebs DM2 - blood sugar stable on correction-dose lispro scale, continue DM diet VTE ppx - warfarin dispo - eventual home with VNA In my clinical judgment, the patient requires continued inpatient hospitalization for the following reasons: IV diuresis and anemia workup Time Spent With Patient Time: Total time managing care of this patient today ____ minutes. Quality Stroke Does the patient have a stroke diagnosis?: No VTE Prior VTE?: No VTE Risk Level:: Medical - moderate - high VTE Device Contraindication: Treatment Not Indicated VTE Drug Contraindication: N/A - Med Ordered
[2022-12-19 16:11] LABS: Glucose, Whole Blood 116 mg/dL (60-115)
[2022-12-19] MEDS: Warfarin Sodium 5 MG TABLET PO (17:41)
[2022-12-19] MEDS: Digoxin 0.125 MG TABLET PO (20:21)
[2022-12-19] MEDS: Pravastatin Sodium 80 MG TABLET PO (20:21)
[2022-12-19] MEDS: Melatonin 3 MG TABLET 6 MG PO (20:21)
[2022-12-19 20:28] LABS: Glucose, Whole Blood 196 mg/dL (60-115)
[2022-12-20] VITALS (10 sets, daily range): BP systolic 104–135; BP diastolic 54–60; PULSE 70–83; RESP 16–22; TEMP 35.7–37.1; O2SAT 96–100; BMI 32.8
[2022-12-20 05:55] LABS: Hematocrit 30.1 % (42.0-52.0); Hemoglobin 8.9 g/dl (14.0-18.0); Mean Corpuscular HGB Conc 29.6 g/dl (31.0-36.0); Mean Corpuscular Hemoglobin 30.1 pg (27.0-33.0); Mean Corpuscular Volume 101.7 fL (80.0-98.0); Mean Platelet Volume 10.5 fL (9.4-12.4); Platelet Count 233 X10*3/uL (160-400); Red Blood Count 2.96 X10*6/uL (4.60-5.80); Red Cell Distribution Width 17.5 % (11.0-16.0); White Blood Count 7.6 X10*3/uL (4.8-10.8)
[2022-12-20] MEDS: Omeprazole 20 MG CAPSULE.DR PO (06:02)
[2022-12-20 06:20] LABS: Anion Gap 12 (12-20); Blood Urea Nitrogen 31 mg/dL (9-16); Calcium 8.7 mg/dL (8.4-10.2); Carbon Dioxide 35 mmol/L (22-29); Chloride 96 mmol/L (96-108); Creatinine Clr Calc Pharmacy 42.1; Estimated Glomerular Filt Rate 41; Glucose Random 179 mg/dL (60-115); Potassium 3.4 mmol/L (3.3-5.1); Sodium 140 mmol/L (135-145)
[2022-12-20 06:24] LABS: INTERNATIONAL NORM RATIO 1.9 (0.9-1.1); Prothrombin Time 21.8 SEC (10.0-13.1)
[2022-12-20] MEDS: Fluticasone/Vilanterol 200/25 BLST.W.DEV 1 PUFF INHALE (07:27)
[2022-12-20] MEDS: Albuterol/Iprat 2.5/0.5MG 3 ML AMPUL.NEB INHALE ×4 (07:27→18:37)
[2022-12-20 07:44] LABS: Glucose, Whole Blood 164 mg/dL (60-115)
[2022-12-20] MEDS: acetaZOLAMIDE 250 MG TABLET PO (07:53)
[2022-12-20] MEDS: Ferrous Sulfate 324 MG TABLET.DR PO (07:53)
[2022-12-20] MEDS: Cyanocobalamin (Vitamin B-12) 1,000 MCG TABLET 1000 MCG PO (07:53)
[2022-12-20] MEDS: Insulin Lispro 100 UNIT/ML 3 ML VIAL SUBCUT ×4 (07:54→20:38)
[2022-12-20] MEDS: 0.9 % Sodium Chloride Flush 3 ML SYRINGE IVFLUSH ×3 (07:54→19:37)
[2022-12-20] MEDS: Ascorbic Acid 500 MG TABLET PO (07:54)
[2022-12-20] MEDS: Ezetimibe 10 MG TABLET PO (08:00)
[2022-12-20 11:36] LABS: Glucose, Whole Blood 194 mg/dL (60-115)
--- NOTE | 2022-12-20 12:22 | PM.PNCARD ---
Subjective Subjective Date of Service: 12/20/22 Interval history: Seen examined at bedside. Improved significantly. He is on Lasix drip currently. Physical Exam Vital Signs: Last Vital Signs Temp 97.0 F 12/20/22 11:05 Pulse 71 12/20/22 11:06 Resp 18 12/20/22 11:06 BP 135/60 12/20/22 11:05 Pulse Ox 96 12/20/22 11:05 O2 Del Method Nasal Cannula 12/20/22 11:05 O2 Flow Rate 2 12/20/22 11:05 BMI result Body Mass Index 32.8 GENERAL APPEARANCE: in no acute distress, pleasant. NECK: no carotid bruit, no significant jugular venous distention. SKIN: no suspicious lesions, warm and dry. HEART: no murmurs, irregular rate and rhythm. LUNGS: clear to auscultation bilaterally. ABDOMEN: soft, nontender. EXTREMITIES: Mild edema mid legs. PERIPHERAL PULSES: equal. NEUROLOGIC: No gross deficits, AAO X 3 Objective Labs and Meds 12/20/22 05:37 12/20/22 05:37 Lab results: Laboratory Results - last 24 hr 12/19/22 12/19/22 12/20/22 16:05 20:16 05:37 WBC 7.6 RBC 2.96 L Hgb 8.9 L Hct 30.1 L MCV 101.7 H MCH 30.1 MCHC 29.6 L RDW 17.5 H Plt Count 233 MPV 10.5 Absolute Nucleated RBC 0.000 Nucleated RBC % (auto) 0.0 PT INR Sodium Potassium Chloride Carbon Dioxide Anion Gap BUN Creatinine Estim Creat Clear Calc Estimated GFR POC Glucose 116 H 196 H Random Glucose Calcium 12/20/22 12/20/22 12/20/22 05:37 05:37 07:31 WBC RBC Hgb Hct MCV MCH MCHC RDW Plt Count MPV Absolute Nucleated RBC Nucleated RBC % (auto) PT 21.8 H INR 1.9 H Sodium 140 Potassium 3.4 Chloride 96 Carbon Dioxide 35 H Anion Gap 12 BUN 31 H Creatinine 1.66 H Estim Creat Clear Calc 42.1 Estimated GFR 41 POC Glucose 164 H Random Glucose 179 H Calcium 8.7 12/20/22 11:09 WBC RBC Hgb Hct MCV MCH MCHC RDW Plt Count MPV Absolute Nucleated RBC Nucleated RBC % (auto) PT INR Sodium Potassium Chloride Carbon Dioxide Anion Gap BUN Creatinine Estim Creat Clear Calc Estimated GFR POC Glucose 194 H Random Glucose Calcium Progress Note: A&P Assessment and plan (1) Decompensated heart failure: Status: Acute Plan 72-year-old gentleman with decompensated congestive heart failure. He presented mostly for right heart failure. Stop the Cardizem. Digoxin dose has been changed to every other day. Increase torsemide to 40 mg twice a day. Add Toprol-XL 25 mg once a day. Ambulation and if feeling fine then can be discharged home. Thank you for allowing me to participate in the care of your patient. Please feel free to contact me if you have any questions. Time Spent With Patient Time: Total time managing care of this patient today ____ minutes. Progress Note: Quality Stroke Does the patient have a stroke diagnosis?: No Procedures Date of Service Date of Service: 12/20/22
--- NOTE | 2022-12-20 13:25 | HO.PM.IMPN ---
Subjective Subjective Date of Service: 12/20/22 Interval History: Sitting comfortably feels better denies shortness of breath, no chest pain, no lightheadedness, no dizziness, tolerating diet with no nausea no vomiting no abdominal pain or diarrhea, no acute issues overnight. Review of Systems All other system reviewed and negative. Physical Exam Vital Signs: Vital Signs: Last Vital Signs Temp 97.0 F 12/20/22 11:05 Pulse 71 12/20/22 11:06 Resp 18 12/20/22 11:06 BP 135/60 12/20/22 11:05 Pulse Ox 96 12/20/22 11:05 O2 Del Method Nasal Cannula 12/20/22 11:05 O2 Flow Rate 2 12/20/22 11:05 BMI result Body Mass Index 32.8 Const: Other: Gen: in no acute distress HEENT: sclera anicteric, moist mucus membranes Neck: supple, no JVD Lungs: rt base crackles, no respiratory distress Heart: irregular, no murmurs Abd: soft, non-tender, non-distended Ext: LE edema improving Skin: warm/well-perfused Neuro: alert and oriented x3, no focal findings Psych: appropriate affect Objective Data Active Medications Acetaminophen (Acetaminophen 325 Mg Tablet) 650 mg PO Q6H PRN PRN Reason: Pain, Mild (Pain Scale 1-3) Albuterol Sulfate (Albuterol Sulfate 90 Mcg 8 Gm Inhaler) 1 puff INHALE QID PRN PRN Reason: shortness of breath or wheezing Albuterol/Ipratropium (Albuterol/Iprat 2.5/0.5mg 3 Ml Ampul.Neb) 3 ml INHALE Q4H PRN PRN Reason: Wheezing Albuterol/Ipratropium (Albuterol/Iprat 2.5/0.5mg 3 Ml Ampul.Neb) 3 ml INHALE RQ4H WHILE AWAKE [facility] [place] Last Admin: 12/20/22 11:05 Dose: 3 ml Documented By: CHAYO Ascorbic Acid (Ascorbic Acid 500 Mg Tablet) 500 mg PO DAILY [facility] [place] Last Admin: 12/20/22 07:54 Dose: 500 mg Documented By: MASSIEL Cyanocobalamin (Cyanocobalamin (Vitamin B-12) 1,000 Mcg Tablet) 1,000 mcg PO DAILY [facility] [place] Last Admin: 12/20/22 07:53 Dose: 1,000 mcg Documented By: MASSIEL Dextrose (Dextrose 50 % 25 Gm/50 Ml Syringe) 25 gm IVPUSH Q15M PRN; Protocol PRN Reason: per Hypoglycemia Standing Ord. Digoxin (Digoxin 0.125 Mg Tablet) 0.125 mg PO Q2D [facility] [place] Last Admin: 12/19/22 20:21 Dose: 0.125 mg Documented By: ROBI Ezetimibe (Ezetimibe 10 Mg Tablet) 10 mg PO DAILY [facility] [place] Last Admin: 12/20/22 08:00 Dose: 10 mg Documented By: MASSIEL Ferrous Sulfate (Ferrous Sulfate 324 Mg Tablet.) 324 mg PO DAILY [facility] [place] Last Admin: 12/20/22 07:53 Dose: 324 mg Documented By: MASSIEL Fluticasone/Vilanterol (Fluticasone/Vilanterol 200/25 Blst.W.Dev) 1 puff INHALE RDAILY [facility] [place] Last Admin: 12/20/22 07:27 Dose: 1 puff Documented By: CHAYO Glucose (Glucose Gel 15 Gm Gel..Gram.) 15 gm PO Q15M PRN; Protocol PRN Reason: per Hypoglycemia Standing Ord. Furosemide 200 mg/ Sodium (Chloride) 100 mls @ 2.5 mls/hr IVCONT .Q24H [facility] [place] Last Admin: 12/19/22 20:22 Dose: Not Given Documented By: ROBI Non-Admin Reason: IV Running Insulin Human Lispro (Insulin Lispro 100 Unit/Ml 3 Ml Vial) 0 unit SUBCUT QIDACHS [facility] [place]; Protocol Last Admin: 12/20/22 11:55 Dose: 5 unit Documented By: MASSIEL Melatonin (Melatonin 3 Mg Tablet) 6 mg PO BEDTIME PRN PRN Reason: Insomnia Last Admin: 12/19/22 20:21 Dose: 6 mg Documented By: ROBI Omeprazole (Omeprazole 20 Mg Capsule.) 20 mg PO DAILY@0630 [facility] [place] Last Admin: 12/20/22 06:02 Dose: 20 mg Documented By: ROBI Ondansetron HCl (Ondansetron Hcl 4 Mg/2 Ml Vial) 4 mg IVPUSH Q8H PRN PRN Reason: Nausea and Vomiting Pharmacy Consult (Consult Rx Perform Med Rec) 1 each MISCELLANE ONCE PRN PRN Reason: Consult order Pravastatin Sodium (Pravastatin Sodium 80 Mg Tablet) 80 mg PO BEDTIME [facility] [place] Last Admin: 12/19/22 20:21 Dose: 80 mg Documented By: ROBI Sodium Chloride (0.9 % Sodium Chloride Flush 3 Ml Syringe) 3 ml IVFLUSH QSHIFT [facility] [place] Last Admin: 12/20/22 07:54 Dose: 3 ml Documented By: MASSIEL Tiotropium [place] (Tiotropium [place] 2.5 Mcg Inhaler) 2 puff INHALE RDAILY [facility] [place] Last Admin: 12/20/22 07:28 Dose: 2 puff Documented By: CHAYO Warfarin Sodium (Warfarin Sodium 5 Mg Tablet) 5 mg PO MoWeFr@1800 [facility] [place] Last Admin: 12/19/22 17:41 Dose: 5 mg Documented By: DORIS Warfarin Sodium (Warfarin Sodium 2.5 Mg Tablet) 2.5 mg PO SuTuThSa@1800 [facility] [place] Last Admin: 12/18/22 17:39 Dose: 2.5 mg Documented By: DORIS Labs 12/20/22 05:37 12/20/22 05:37 Labs: Laboratory Results - last 24 hr 12/19/22 12/19/22 12/20/22 16:05 20:16 05:37 MCV 101.7 H MCH 30.1 MCHC 29.6 L RDW 17.5 H Plt Count 233 MPV 10.5 Absolute Nucleated RBC 0.000 Nucleated RBC % (auto) 0.0 PT INR Anion Gap Estim Creat Clear Calc Estimated GFR POC Glucose 116 H 196 H Random Glucose Calcium 12/20/22 12/20/22 12/20/22 05:37 05:37 07:31 MCV MCH MCHC RDW Plt Count MPV Absolute Nucleated RBC Nucleated RBC % (auto) PT 21.8 H INR 1.9 H Anion Gap 12 Estim Creat Clear Calc 42.1 Estimated GFR 41 POC Glucose 164 H Random Glucose 179 H Calcium 8.7 12/20/22 11:09 MCV MCH MCHC RDW Plt Count MPV Absolute Nucleated RBC Nucleated RBC % (auto) PT INR Anion Gap Estim Creat Clear Calc Estimated GFR POC Glucose 194 H Random Glucose Calcium Assessment and Plan (1) CHF (congestive heart failure): Status: Acute Plan 72yo M with chronic AF on warfarin, chronic HFpEF, HTN, venous stasis, HLD, DM2, chronic hypoxia due to COPD sent in by access rep Dr Bird due to CHF exacerbation resistant to oral diuresis acute on chronic R-sided HF - feeling better, no shortness of breath lower extremity edema significantly improved, decreased basilar crackles - will DC IV furosemide drip, and acetazolamide 250 b.i.d., case discussed with Cardiology they recommend torsemide 40 mg b.i.d. and metoprolol 25 daily Stable renal function, normal BNP Urinary protein negative Recommend ambulation - TTE 12/16/22: - Normal left ventricular size, thickness, and systolic function. The visually estimated ejection fraction is between 65-70%.There is no evidence of regional wall motion abnormalities.? ? ? - Moderately increased right ventricular cavity size.? There is?normal right ventricular systolic function.? - The left atrium is severely dilated.? The right atrium is severely dilated.? - There is moderate tricuspid valve regurgitation.? The right?ventricular systolic pressure is 56 mmHg.? Significantly elevated right atrial pressure.? Moderate to severe pulmonary hypertension,is present.? rate-controlled chronic AF - continue warfarin, daily INR [1.9 today] - continue digoxin, dose changed to every other day, diltiazem 180 mg daily macrocytic anemia -hematocrit improved and stable -B12/FA WNL, stool guaiac not done / iron studies consistent with anemia of chronic disease/LDH normal, hapto pending, retic mildly elevated Evaluated by Dr. Figueroa anemia likely multifactorial, she recommend to follow stool occult test if positive further evaluation with EGD and colonoscopy as outpatient after CHF improves patient will need cardiac clearance HLD - statin, ezetimibe chronic hypoxic RF due to COPD - suppl O2, Breo, Spiriva, nebs DM2 - blood sugar stable on correction-dose lispro scale, continue DM diet VTE ppx - warfarin dispo - eventual home with VNA In my clinical judgment, the patient requires continued inpatient hospitalization for the following reasons: Close monitoring of electrolytes and renal function while being diuresed Time Spent With Patient Time: Total time managing care of this patient today ____ minutes. Quality Stroke Does the patient have a stroke diagnosis?: No VTE Prior VTE?: No VTE Risk Level:: Medical - moderate - high VTE Device Contraindication: Treatment Not Indicated VTE Drug Contraindication: N/A - Med Ordered
[2022-12-20 16:14] LABS: Glucose, Whole Blood 175 mg/dL (60-115)
[2022-12-20] MEDS: Warfarin Sodium 2.5 MG TABLET PO (17:30)
[2022-12-20] MEDS: Melatonin 3 MG TABLET 6 MG PO (19:36)
[2022-12-20] MEDS: Torsemide 20 MG TABLET 40 MG PO (19:36)
[2022-12-20] MEDS: Pravastatin Sodium 80 MG TABLET PO (19:37)
[2022-12-20 20:33] LABS: Glucose, Whole Blood 177 mg/dL (60-115)
[2022-12-20] MEDS: ondansetron HCL 4 MG/2 ML VIAL IVPUSH (21:20)
--- NOTE | 2022-12-20 21:33 | PC.NURSE ---
Pt coughing and nauseous in room. Threw up undigested food emesis. Stated he felt better. PRN Zofran given. Emesis bags at bedside.
[2022-12-21] VITALS (9 sets, daily range): BP systolic 107–120; BP diastolic 53–65; PULSE 70–99; RESP 18–20; TEMP 36.2–36.8; O2SAT 91–95
--- NOTE | 2022-12-21 00:50 | PC.NURSE ---
Addendum entered by Diana Morel RN 12/21/22 04:52: CT results to MD Maciel. Per MD NGT placed to the right nare at 75cm. Pt made NPO. CXR obtained for line placement. NGT connected to LWS. Large amounts of bilious drainage noted. Addendum entered by Diana Morel RN 12/21/22 02:26: KUB resulted. made aware. STAT CT scan abdomen ordered. Results pending. Original Note: Pt had 2 episodes of vomiting undigested food/ yellow emesis. PRN Zofran with some effect but wore off quickly. Hypoactive Bowel sounds, abdomen large round soft. Denies any tenderness. MD Maciel notified, STAT KUB ordered.
--- NOTE | 2022-12-21 03:58 | PM.EVENT ---
Event Note Date of Service: 12/21/22 Event Note: Got report from nursing that patient with multiple episodes of vomiting. Vital stable. Distended abdomen. Imaging with concerns for SBO. Will make patient NPO. Initiate NG tube to suction. Consulting general surgery Time Spent With Patient Time: Total time managing care of this patient today ____ minutes.
[2022-12-21 06:51] LABS: INTERNATIONAL NORM RATIO 2.2 (0.9-1.1)
[2022-12-21] MEDS: Albuterol/Iprat 2.5/0.5MG 3 ML AMPUL.NEB INHALE ×4 (07:29→19:52)
[2022-12-21] MEDS: Fluticasone/Vilanterol 200/25 BLST.W.DEV 1 PUFF INHALE (07:29)
[2022-12-21 07:43] LABS: Glucose, Whole Blood 156 mg/dL (60-115)
[2022-12-21] MEDS: 0.9 % Sodium Chloride Flush 3 ML SYRINGE IVFLUSH ×3 (10:11→23:35)
[2022-12-21 10:22] LABS: Hematocrit 30.2 % (42.0-52.0); Hemoglobin 9.2 g/dl (14.0-18.0); Mean Corpuscular HGB Conc 30.5 g/dl (31.0-36.0); Mean Corpuscular Hemoglobin 30.2 pg (27.0-33.0); Platelet Count 243 X10*3/uL (160-400); Red Blood Count 3.05 X10*6/uL (4.60-5.80); Red Cell Distribution Width 17.6 % (11.0-16.0); White Blood Count 10.1 X10*3/uL (4.8-10.8)
--- NOTE | 2022-12-21 10:42 | PM.CNGS ---
History of Present Illness Consult details Consult date: 12/21/22 Narrative: 72M referred for SBO. He has multiple medical problems including CHF, chronic afib, on anticoagulation, pulmonary HTN, and had been admitted since December 15, 2022 for exertional dyspnea. He was being manage for acute decompensation of his CHF and seems to have been improving. However, overnight, he had multiple episodes of vomitting and was sent for a CT scan which showed PSBO. He currently denies abdominal pain. He says he has passed flatus this morning. He has had an NGT in place since early this AM. Review of Systems Constitutional: Constitutional: Denies fever(s) Cardiovascular: Cardiovascular: Denies chest pain, Reports dyspnea on exertion and Reports orthopnea Respiratory: Respiratory: Denies cough and Reports dyspnea on exertion Gastrointestinal: Gastrointestinal: Denies diarrhea and Reports vomiting Genitourinary: Genitourinary: Denies difficulty urinating PMFSH Past Medical History Medical History (Updated 12/21/22 @ 10:48 by Chidi Askew MD) Biatrial enlargement Chronic heart failure with preserved ejection fraction (HFpEF) CKD (chronic kidney disease) Diabetes mellitus HLD (hyperlipidemia) HTN (hypertension) Partial small bowel obstruction Pulmonary hypertension Family History Family History Father Cancer Mother No problems noted. Surgical History Surgical History History of nephrectomy Hx of hernia repair Social History Social History Household Members: Spouse Housing: House Do you presently have visiting nurse or other home services: No Patient Tobacco Use Status: Former Tobacco user Second Hand Smoke Exposure: No service: No Meds Allergies Allergy/AdvReac Type Severity Reaction Status Date / Time No Known Allergies Allergy Verified 12/15/22 10:30 Active Medications: Current Medications Acetaminophen (Acetaminophen 325 Mg Tablet) 650 mg PO Q6H PRN PRN Reason: Pain, Mild (Pain Scale 1-3) Albuterol Sulfate (Albuterol Sulfate 90 Mcg 8 Gm Inhaler) 1 puff INHALE QID PRN PRN Reason: shortness of breath or wheezing Albuterol/Ipratropium (Albuterol/Iprat 2.5/0.5mg 3 Ml Ampul.Neb) 3 ml INHALE Q4H PRN PRN Reason: Wheezing Albuterol/Ipratropium (Albuterol/Iprat 2.5/0.5mg 3 Ml Ampul.Neb) 3 ml INHALE RQ4H WHILE AWAKE [facility] Last Admin: 12/21/22 07:29 Dose: 3 ml Ascorbic Acid (Ascorbic Acid 500 Mg Tablet) 500 mg PO DAILY [facility] Last Admin: 12/21/22 09:12 Dose: Not Given Cyanocobalamin (Cyanocobalamin (Vitamin B-12) 1,000 Mcg Tablet) 1,000 mcg PO DAILY [facility] Last Admin: 12/21/22 09:13 Dose: Not Given Dextrose (Dextrose 50 % 25 Gm/50 Ml Syringe) 25 gm IVPUSH Q15M PRN; Protocol PRN Reason: per Hypoglycemia Standing Ord. Digoxin (Digoxin 0.125 Mg Tablet) 0.125 mg PO Q2D [facility] Last Admin: 12/19/22 20:21 Dose: 0.125 mg Ezetimibe (Ezetimibe 10 Mg Tablet) 10 mg PO DAILY [facility] Last Admin: 12/21/22 09:13 Dose: Not Given Ferrous Sulfate (Ferrous Sulfate 324 Mg Tablet.) 324 mg PO DAILY [facility] Last Admin: 12/21/22 09:13 Dose: Not Given Fluticasone/Vilanterol (Fluticasone/Vilanterol 200/25 Blst.W.Dev) 1 puff INHALE RDAILY [facility] Last Admin: 12/21/22 07:29 Dose: 1 puff Glucose (Glucose Gel 15 Gm Gel..Gram.) 15 gm PO Q15M PRN; Protocol PRN Reason: per Hypoglycemia Standing Ord. Insulin Human Lispro (Insulin Lispro 100 Unit/Ml 3 Ml Vial) 0 unit SUBCUT QIDACHS [facility]; Protocol Last Admin: 12/21/22 07:51 Dose: Not Given Melatonin (Melatonin 3 Mg Tablet) 6 mg PO BEDTIME PRN PRN Reason: Insomnia Last Admin: 12/20/22 19:36 Dose: 6 mg Metoprolol Succinate (Metoprolol Succinate Er 25 Mg Tab.Er.24h) 25 mg PO DAILY [facility]; Protocol Last Admin: 12/21/22 09:13 Dose: Not Given Omeprazole (Omeprazole 20 Mg Capsule.) 20 mg PO DAILY@0630 [facility] Last Admin: 12/21/22 05:05 Dose: Not Given Ondansetron HCl (Ondansetron Hcl 4 Mg/2 Ml Vial) 4 mg IVPUSH Q8H PRN PRN Reason: Nausea and Vomiting Last Admin: 12/20/22 21:20 Dose: 4 mg Pharmacy Consult (Consult Rx Perform Med Rec) 1 each MISCELLANE ONCE PRN PRN Reason: Consult order Pravastatin Sodium (Pravastatin Sodium 80 Mg Tablet) 80 mg PO BEDTIME [facility] Last Admin: 12/20/22 19:37 Dose: 80 mg Sodium Chloride (0.9 % Sodium Chloride Flush 3 Ml Syringe) 3 ml IVFLUSH QSHIFT [facility] Last Admin: 12/21/22 10:11 Dose: 3 ml Tiotropium [place] (Tiotropium [place] 2.5 Mcg Inhaler) 2 puff INHALE RDAILY [facility] Last Admin: 12/21/22 07:29 Dose: 2 puff Torsemide (Torsemide 20 Mg Tablet) 40 mg PO BID [facility]; Protocol Last Admin: 12/20/22 19:36 Dose: 40 mg Warfarin Sodium (Warfarin Sodium 5 Mg Tablet) 5 mg PO MoWeFr@1800 [facility] Last Admin: 12/19/22 17:41 Dose: 5 mg Warfarin Sodium (Warfarin Sodium 2.5 Mg Tablet) 2.5 mg PO SuTuThSa@1800 [facility] Last Admin: 12/20/22 17:30 Dose: 2.5 mg Home Medications Medication Instructions Recorded Confirmed Last Taken Type ascorbic acid (vitamin C) 500 mg 500 mg PO DAILY 05/01/20 12/15/22 12/15/22 History tablet budesonide-formoterol HFA 160 2 puff PO BID 05/01/20 12/15/22 12/15/22 History mcg-4.5 mcg/actuation aerosol inhaler ezetimibe 10 mg tablet 10 mg PO DAILY 05/01/20 12/15/22 12/15/22 History ferrous sulfate 325 mg (65 mg 325 mg PO DAILY 05/01/20 12/15/22 12/15/22 History iron) tablet metformin 500 mg tablet 500 mg PO BIDWM 05/01/20 12/15/22 12/15/22 History tiotropium bromide 18 mcg capsule 18 mcg PO DAILY 05/01/20 12/15/22 12/15/22 History with inhalation device alcohol swabs pad topical 10/01/20 12/15/22 Unknown History torsemide 20 mg tablet 40 mg PO DAILY 04/18/22 12/15/22 12/15/22 History albuterol sulfate 90 mcg/actuation 1 inh inhalation QID PRN shortness 11/10/22 12/15/22 12/15/22 History aerosol inhaler of breath or wheezing cyanocobalamin (vitamin B-12) 1,000 mcg PO DAILY 12/15/22 12/15/22 12/15/22 History 1,000 mcg tablet digoxin 125 mcg (0.125 mg) tablet 125 mcg PO BEDTIME 12/15/22 12/15/22 12/15/22 History doxycycline hyclate 100 mg capsule 100 mg PO BID 12/15/22 12/15/22 12/15/22 History pravastatin 80 mg tablet 80 mg PO BEDTIME 12/15/22 12/15/22 12/15/22 History warfarin 5 mg tablet 2.5 mg PO SUTUTHSA@1800 12/15/22 12/16/22 12/14/22 History warfarin 5 mg tablet 5 mg PO MOWEFR@1800 12/15/22 12/16/22 Unknown History Physical Exam Vital Signs: Vital Signs: Last Vital Signs Temp 97.3 F 12/21/22 07:16 Pulse 89 12/21/22 07:31 Resp 20 12/21/22 07:31 BP 112/65 12/21/22 07:16 Pulse Ox 92 12/21/22 07:16 O2 Del Method Nasal Cannula 12/21/22 07:16 O2 Flow Rate 2 12/21/22 07:16 BMI result Body Mass Index 32.8 Const: General: comfortable and no acute distress Resp: Effort & Inspection: normal respiratory effort Cardio: Rhythm: abnormal rhythm GI: Palpation (GI): Soft to palpation, not firm, nontender and no guarding Results Labs 12/21/22 10:16 12/20/22 05:37 Labs: Abnormal lab results 12/20/22 12/20/22 12/20/22 Range/Units 11:09 16:11 20:22 RBC (4.60-5.80) X10*6/uL Hgb (14.0-18.0) g/dl Hct (42.0-52.0) % MCV (80.0-98.0) fL MCHC (31.0-36.0) g/dl RDW (11.0-16.0) % PT (10.0-13.1) SEC INR (0.9-1.1) POC Glucose 194 H 175 H 177 H (60-115) mg/dL 12/21/22 12/21/22 12/21/22 Range/Units 06:27 07: 10:16 RBC 3.05 L (4.60-5.80) X10*6/uL Hgb 9.2 L (14.0-18.0) g/dl Hct 30.2 L (42.0-52.0) % MCV 99.0 H (80.0-98.0) fL MCHC 30.5 L (31.0-36.0) g/dl RDW 17.6 H (11.0-16.0) % PT 26.0 H (10.0-13.1) SEC INR 2.2 H (0.9-1.1) POC Glucose 156 H (60-115) mg/dL Short CBC 12/21/22 Range/Units 10:16 WBC 10.1 (4.8-10.8) X10*3/uL Hgb 9.2 L (14.0-18.0) g/dl Hct 30.2 L (42.0-52.0) % Plt Count 243 (160-400) X10*3/uL Urine 12/17/22 Range/Units Unknown Urine Color Yellow Urine Appearance Clear Urine pH 8.5 (5.0-9.0) Ur Specific [place] 1.010 (1.005-1.025) Urine Protein Negative (Neg-Trace) mg/dL Urine Glucose (UA) Negative (Negative) mg/dL All other labs normal. Laboratory Results WBC 10.1 X10*3/uL (4.8-10.8) 12/21/22 10:16 RBC 3.05 X10*6/uL (4.60-5.80) L 12/21/22 10:16 Hgb 9.2 g/dl (14.0-18.0) L 12/21/22 10:16 Hct 30.2 % (42.0-52.0) L 12/21/22 10:16 MCV 99.0 fL (80.0-98.0) H 12/21/22 10:16 MCH 30.2 pg (27.0-33.0) 12/21/22 10:16 MCHC 30.5 g/dl (31.0-36.0) L 12/21/22 10:16 RDW 17.6 % (11.0-16.0) H 12/21/22 10:16 Plt Count 243 X10*3/uL (160-400) 12/21/22 10:16 MPV 10.0 fL (9.4-12.4) 12/21/22 10:16 Immature Gran % (Auto) 0.7 % (0.0-0.4) H 12/16/22 06:30 Neut % (Auto) 85.0 % (45-73) H 12/16/22 06:30 Lymph % (Auto) 12.3 % (20-40) L 12/16/22 06:30 [place] % (Auto) 1.8 % (2-11) L 12/16/22 06:30 Eos % (Auto) 0.0 % (0-4) 12/16/22 06:30 Baso % (Auto) 0.2 % (0-2) 12/16/22 06:30 Lymph # (Auto) 0.5 X10*3/uL (1.2-4.9) L 12/16/22 06:30 [place] # (Auto) 0.1 X10*3/uL (0.1-1.2) 12/16/22 06:30 Eos # (Auto) 0.0 X10*3/uL (0.0-0.4) 12/16/22 06:30 Baso # (Auto) 0.0 X10*3/uL (0.0-0.2) 12/16/22 06:30 Abs Immat Gran (auto) 0.03 X10*3/uL (0.00-0.03) 12/16/22 06:30 Absolute Neuts (auto) 3.7 x10*3/uL (2.0-8.3) 12/16/22 06:30 Absolute Nucleated RBC 0.000 X10*3/uL (0.0-0.012) 12/21/22 10:16 Nucleated RBC % (auto) 0.0 /100WBC (0.0-0.2) 12/21/22 10:16 Absolute Retic 0.064 X10*6/uL (0.026-0.095) 12/19/22 05:25 Percent Retic 2.2 % (0.5-1.8) H 12/19/22 05:25 Immature Retic Fraction 20.5 % (2.3-13.4) H 12/19/22 05:25 Retic Hgb Equivalent 30.5 pg (30.0-35.0) 12/19/22 05:25 PT 26.0 SEC (10.0-13.1) H 12/21/22 06:27 INR 2.2 (0.9-1.1) H 12/21/22 06:27 VBG pH 7.39 (7.32-7.43) 12/15/22 18:17 VBG pCO2 68 mmHg 12/15/22 18:17 VBG pO2 35 mmHg 12/15/22 18:17 VBG HCO3 41 mmol/L (22-26) H 12/15/22 18:17 VBG O2 Saturation 49.0 % 12/15/22 18:17 VBG Base Excess 14.3 mmol/L 12/15/22 18:17 Sodium 140 mmol/L (135-145) 12/21/22 10:16 Potassium 3.5 mmol/L (3.3-5.1) 12/21/22 10:16 Chloride 97 mmol/L (96-108) 12/21/22 10:16 Carbon Dioxide 33 mmol/L (22-29) H 12/21/22 10:16 Anion Gap 14 (12-20) 12/21/22 10:16 BUN 32 mg/dL (9-16) H 12/21/22 10:16 Creatinine 1.57 mg/dL (0.5-1.4) H 12/21/22 10:16 Estim Creat Clear Calc 44.5 12/21/22 10:16 Estimated GFR 44 12/21/22 10:16 POC Glucose 156 mg/dL (60-115) H 12/21/22 07:19 Random Glucose 150 mg/dL (60-115) H 12/21/22 10:16 Lactic Acid 1.1 mmol/L (0.5-2.0) 12/15/22 19:22 Calcium 8.7 mg/dL (8.4-10.2) 12/21/22 10:16 Magnesium 2.5 mg/dL (1.6-2.6) 12/21/22 10:16 Iron 33 mcg/dL (45-160) L 12/19/22 05:25 TIBC 262 mcg/dL (228-428) 12/19/22 05:25 % Saturation 13 % (15-50) L 12/19/22 05:25 Unsat Iron Binding 229 ug/dL 12/19/22 05:25 Ferritin 127 ng/mL (20-250) 12/19/22 05:25 Total Bilirubin 0.5 mg/dL (0.0-1.0) 12/15/22 12:07 Direct Bilirubin 0.3 mg/dL (0.0-0.5) 12/15/22 12:07 AST 23 U/L (5-37) 12/15/22 12:07 ALT 12 U/L (0-40) 12/15/22 12:07 Alkaline Phosphatase 67 U/L (39-117) 12/15/22 12:07 Lactate Dehydrogenase 155 U/L (118-273) 12/19/22 05:25 Troponin I High Sens 8.5 ng/L (<3.5-35.0) 12/15/22 12:07 B-Natriuretic Peptide 79 pg/mL (<100) 12/18/22 05:29 Total Protein 6.7 g/dL (6.5-8.0) 12/15/22 12:07 Albumin 3.6 g/dL (3.5-5.0) 12/15/22 12:07 Vitamin B12 1628 pg/mL (200-900) H 12/15/22 20:55 Folate 11.5 ng/mL (> or = 4.0) 12/15/22 20:55 Urine Color Yellow 12/17/22 Unknown Urine Appearance Clear 12/17/22 Unknown Urine pH 8.5 (5.0-9.0) 12/17/22 Unknown Ur Specific [place] 1.010 (1.005-1.025) 12/17/22 Unknown Urine Protein Negative mg/dL (Neg-Trace) 12/17/22 Unknown Urine Glucose (UA) Negative mg/dL (Negative) 12/17/22 Unknown Urine Ketones Negative mg/dL (Negative) 12/17/22 Unknown Urine Blood Negative (Negative) 12/17/22 Unknown Urine Nitrite Negative (Negative) 12/17/22 Unknown Ur Leukocyte Esterase Negative (Negative) 12/17/22 Unknown Urine RBC 0-2 /HPF (0-2) 12/17/22 Unknown Urine WBC 0-5 /HPF (0-5) 12/17/22 Unknown Ur Squamous Epith Cells 0-2 /HPF (0-2) 12/17/22 Unknown Urine Bacteria None Seen (None Seen) 12/17/22 Unknown Hyaline Casts 0-2 /LPF (0-2) 12/17/22 Unknown U Random Total Protein < 7 mg/dL (<12) 12/17/22 Unknown Urine Creatinine 19.91 mg/dL 12/17/22 Unknown Digoxin 0.7 ng/mL (0.8-2.0) L 12/18/22 05:29 COVID-19 (NATTY) Negative (Negative) 12/15/22 12:07 COVID-19 Clin Com See Note 12/15/22 12:07 Influenza Type A (PCR) NEGATIVE (Negative) 12/15/22 17:52 Influenza Type B (PCR) NEGATIVE (Negative) 12/15/22 17:52 RSV RNA Qual (PCR) NEGATIVE (Negative) 12/15/22 17:52 SARS-CoV-2 RNA (RT-PCR) NEGATIVE (Negative) 12/15/22 17:[address] 12/15/22 18:43 IMPRESSION: 1. No abnormal mediastinal or axillary lymphadenopathy seen. No abnormality seen in either hilum. 2. Bilateral adrenal lesions, left greater than right. 3. Mild emphysematous changes in the lungs without acute pneumonic process. Fleischner guidelines were followed. KUB X-Ray 12/21/22 01:14 IMPRESSION: Prominent gaseous distention of bowel loops, predominantly involving small bowel though portions of the colon are also distended. This may represent ileus in the proper clinical setting, though obstruction cannot be excluded. Abdomen/Pelvis CT 12/21/22 02:18 IMPRESSION: 1. Dilated proximal to mid small bowel loops, with transition to collapsed small bowel in the central to right abdomen. Overall appearance is concerning for developing small bowel obstruction, though the possibility of an ileus is difficult to entirely exclude, as there is also gas and stool in the colon. Short-term radiographic follow-up is recommended. 2. 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 3. Nodular hepatic contour, raising concern for cirrhosis. 4. Cholelithiasis. 5. Enlarged prostate gland. 6. Bilateral adrenal nodules most consistent with adenomas as described above. Chest X-Ray 12/21/22 04:35 IMPRESSION: Enteric tube courses into the stomach. Subsegmental right basilar atelectasis. Assessment and Plan (1) Partial small bowel obstruction: Status: Acute He is being managed for CHF but had multiple episodes of vomitting. He had an NGT placed this morning and a CT scan showed dilated SB loops suggestive of PSBO. There is air in the distal SB and colon. There may be a transition point in the midabdomen to the right of midline. He has a hx of right kidney surgery for what he describes as a cancer. His exam is benign at this time. He does not have tenderness. The NGT should in place. I have ordered a ffup KUB for tomorrow. I would recommend holding his anticoagulant for now in case he require surgery. I will follow along while he is in the hospital. Time Spent With Patient Time: Total time managing care of this patient today ____ minutes. Procedures Date of Service Date of Service: 12/24/22
[2022-12-21 10:43] LABS: Anion Gap 14 (12-20); Blood Urea Nitrogen 32 mg/dL (9-16); Calcium 8.7 mg/dL (8.4-10.2); Carbon Dioxide 33 mmol/L (22-29); Chloride 97 mmol/L (96-108); Creatinine Clr Calc Pharmacy 44.5; Estimated Glomerular Filt Rate 44; Glucose Random 150 mg/dL (60-115); Magnesium 2.5 mg/dL (1.6-2.6); Potassium 3.5 mmol/L (3.3-5.1); Sodium 140 mmol/L (135-145)
--- NOTE | 2022-12-21 11:21 | P.PNIM_ITS ---
Subjective Subjective Date of Service: 12/21/22 Interval History: Events from last night noted, patient had multiple episodes of vomiting noted to have distended abdomen CT abdomen and pelvis of site was obtained that was concerning for partial small bowel obstruction NG tube placed, 200 output this morning,patient is feeling better denies abdominal pain, passing flatus denies shortness of breath, no chest pain no lightheadedness, no dizziness, on 2 L of oxygen is finger oximetry 92-94. Review of Systems All other system reviewed and negative. Physical Exam Vital Signs: Vital Signs: Last Vital Signs Temp 97.3 F 12/21/22 07:16 Pulse 87 12/21/22 11:17 Resp 20 12/21/22 11:17 BP 112/65 12/21/22 07:16 Pulse Ox 92 12/21/22 07:16 O2 Del Method Nasal Cannula 12/21/22 07:16 O2 Flow Rate 2 12/21/22 07:16 BMI result Body Mass Index 32.8 Const: Other: Gen: in no acute distress HEENT: sclera anicteric, moist mucus membranes Neck: supple, no JVD Lungs: rt base crackles, no respiratory distress Heart: irregular, no murmurs Abd: soft, non-tender, non distended (baseline obese) , no guarding no rigidity Ext: LE? edema resolved Skin: warm/well-perfused Neuro: alert and oriented x3, no focal findings Psych: appropriate affect Objective Data Active Medications Acetaminophen (Acetaminophen 325 Mg Tablet) 650 mg PO Q6H PRN PRN Reason: Pain, Mild (Pain Scale 1-3) Albuterol Sulfate (Albuterol Sulfate 90 Mcg 8 Gm Inhaler) 1 puff INHALE QID PRN PRN Reason: shortness of breath or wheezing Albuterol/Ipratropium (Albuterol/Iprat 2.5/0.5mg 3 Ml Ampul.Neb) 3 ml INHALE Q4H PRN PRN Reason: Wheezing Albuterol/Ipratropium (Albuterol/Iprat 2.5/0.5mg 3 Ml Ampul.Neb) 3 ml INHALE RQ4H WHILE AWAKE [facility] Last Admin: 12/21/22 11:17 Dose: 3 ml Documented By: SARAHI Ascorbic Acid (Ascorbic Acid 500 Mg Tablet) 500 mg PO DAILY [facility] Last Admin: 12/21/22 09:12 Dose: Not Given Documented By: MASSIEL Non-Admin Reason: NPO Cyanocobalamin (Cyanocobalamin (Vitamin B-12) 1,000 Mcg Tablet) 1,000 mcg PO D AILY [facility] Last Admin: 12/21/22 09:13 Dose: Not Given Documented By: MASSIEL Non-Admin Reason: NPO Dextrose (Dextrose 50 % 25 Gm/50 Ml Syringe) 25 gm IVPUSH Q15M PRN; Protocol PRN Reason: per Hypoglycemia Standing Ord. Digoxin (Digoxin 0.125 Mg Tablet) 0.125 mg PO Q2D [facility] Last Admin: 12/19/22 20:21 Dose: 0.125 mg Documented By: ROBI Ezetimibe (Ezetimibe 10 Mg Tablet) 10 mg PO DAILY [facility] Last Admin: 12/21/22 09:13 Dose: Not Given Documented By: MASSIEL Non-Admin Reason: NPO Ferrous Sulfate (Ferrous Sulfate 324 Mg Tablet.) 324 mg PO DAILY [facility] Last Admin: 12/21/22 09:13 Dose: Not Given Documented By: MASSIEL Non-Admin Reason: NPO Fluticasone/Vilanterol (Fluticasone/Vilanterol 200/25 Blst.W.Dev) 1 puff INHALE RDAILY [facility] Last Admin: 12/21/22 07:29 Dose: 1 puff Documented By: CHAYO Glucose (Glucose Gel 15 Gm Gel..Gram.) 15 gm PO Q15M PRN; Protocol PRN Reason: per Hypoglycemia Standing Ord. Insulin Human Lispro (Insulin Lispro 100 Unit/Ml 3 Ml Vial) 0 unit SUBCUT QIDACHS [facility]; Protocol Last Admin: 12/21/22 07:51 Dose: Not Given Documented By: MASSIEL Non-Admin Reason: NPO Melatonin (Melatonin 3 Mg Tablet) 6 mg PO BEDTIME PRN PRN Reason: Insomnia Last Admin: 12/20/22 19:36 Dose: 6 mg Documented By: ROBI Metoprolol Succinate (Metoprolol Succinate Er 25 Mg Tab.Er.24h) 25 mg PO DAILY [facility]; Protocol Last Admin: 12/21/22 09:13 Dose: Not Given Documented By: MASSIEL Non-Admin Reason: NPO Omeprazole (Omeprazole 20 Mg Capsule.) 20 mg PO DAILY@0630 [facility] Last Admin: 12/21/22 05:05 Dose: Not Given Documented By: ROBI Non-Admin Reason: NPO Ondansetron HCl (Ondansetron Hcl 4 Mg/2 Ml Vial) 4 mg IVPUSH Q8H PRN PRN Reason: Nausea and Vomiting Last Admin: 12/20/22 21:20 Dose: 4 mg Documented By: ROBI Pharmacy Consult (Consult Rx Perform Med Rec) 1 each MISCELLANE ONCE PRN PRN Reason: Consult order Pravastatin Sodium (Pravastatin Sodium 80 Mg Tablet) 80 mg PO BEDTIME [facility] Last Admin: 12/20/22 19:37 Dose: 80 mg Documented By: ROBI Sodium Chloride (0.9 % Sodium Chloride Flush 3 Ml Syringe) 3 ml IVFLUSH QSHIFT [facility] Last Admin: 12/21/22 10:11 Dose: 3 ml Documented By: MASSIEL Tiotropium [place] (Tiotropium [place] 2.5 Mcg Inhaler) 2 puff INHALE RDAILY [facility] Last Admin: 12/21/22 07:29 Dose: 2 puff Documented By: CHAYO Torsemide (Torsemide 20 Mg Tablet) 40 mg PO BID [facility]; Protocol Last Admin: 12/21/22 11:07 Dose: Not Given Documented By: MASSIEL Non-Admin Reason: NPO Labs 12/21/22 10:16 12/21/22 10:16 Labs: Laboratory Results - last 24 hr 12/20/22 12/20/22 12/20/22 11:09 16:11 20:22 MCV MCH MCHC RDW Plt Count MPV Absolute Nucleated RBC Nucleated RBC % (auto) PT INR Anion Gap Estim Creat Clear Calc Estimated GFR POC Glucose 194 H 175 H 177 H Random Glucose Calcium Magnesium 12/21/22 12/21/22 12/21/22 06:27 07:19 10:16 MCV 99.0 H MCH 30.2 MCHC 30.5 L RDW 17.6 H Plt Count 243 MPV 10.0 Absolute Nucleated RBC 0.000 Nucleated RBC % (auto) 0.0 PT 26.0 H INR 2.2 H Anion Gap Estim Creat Clear Calc Estimated GFR POC Glucose 156 H Random Glucose Calcium Magnesium 12/21/22 10:16 MCV MCH MCHC RDW Plt Count MPV Absolute Nucleated RBC Nucleated RBC % (auto) PT INR Anion Gap 14 Estim Creat Clear Calc 44.5 Estimated GFR 44 POC Glucose Random Glucose 150 H Calcium 8.7 Magnesium 2.5 Microbiology Microbiology Results: Microbiology 12/15/22 19:22 Blood Culture - Final Blood - Venous No growth after 5 days. 12/15/22 18:23 Blood Culture - Final Blood - Venous No growth after 5 days. Assessment and Plan (1) CHF (congestive heart failure): Status: Acute Plan 72yo M with chronic AF on warfarin, chronic HFpEF, HTN, venous stasis, HLD, DM2, chronic hypoxia due to COPD sent in by internet e[employer] specialist Dr Bird due to CHF exacerbation resistant to oral diuresis PSBO Developed multiple episodes of vomiting last night, and abdominal distension, KUB suggestive of ileus, obstruction was not excluded, CT abdomen and pelvis suggestive off PSBO This a.m. no abdominal pain, NG tube with bilious 200 mL drainage Continue NPO NG tube, stable electrolytes and magnesium Seen by General surgery will have repeat KUB at a.m. will hold Coumadin in case of surgery. acute on chronic R-sided HF - feeling better, no shortness of breath lower extremity edema significantly improved, decreased basilar crackles - s/p IV furosemide drip, and acetazolamide 250 b.i.d., case discussed with Cardiology they recommend torsemide 40 mg b.i.d. and metoprolol 25 daily Stable renal function, normal BNP Urinary protein negative Recommend ambulation, physical therapy recommend home PT - TTE 12/16/22: - Normal left ventricular size, thickness, and systolic function. The visually estimated ejection fraction is between 65-70%.There is no evidence of regional wall motion abnormalities.? ? ? - Moderately increased right ventricular cavity size.? There is?normal right ventricular systolic function.? - The left atrium is severely dilated.? The right atrium is severely dilated.? - There is moderate tricuspid valve regurgitation.? The right?ventricular systolic pressure is 56 mmHg.? Significantly elevated right atrial pressure.? Moderate to severe pulmonary hypertension,is present.? rate-controlled chronic AF - hold Coumadin - continue digoxin, dose changed to every other day, DC diltiazem placed on Toprol XL 25 daily macrocytic anemia -hematocrit improved and stable -B12/FA WNL, iron studies consistent with anemia of chronic disease/LDH normal, hapto pending, retic mildly elevated Stool guaiac not collected Evaluated by Dr. Figueroa anemia likely multifactorial, she recommend to follow stool occult test if positive further evaluation with EGD and colonoscopy as outpatient after CHF improves patient will need cardiac clearance HLD - statin, ezetimibe chronic hypoxic RF due to COPD - suppl O2, Breo, Spiriva, nebs DM2 - blood sugar stable on correction-dose lispro scale, continue DM diet VTE ppx - warfarin dispo - eventual home with VNA In my clinical judgment, the patient requires continued inpatient hospitalization for the following reasons: Partial small-bowel obstruction NPO with NG tube . Were locked Time Spent With Patient Time: Total time managing care of this patient today ____ minutes. Quality Stroke Does the patient have a stroke diagnosis?: No VTE Prior VTE?: No VTE Risk Level:: Medical - moderate - high VTE Device Contraindication: Treatment Not Indicated VTE Drug Contraindication: N/A - Med Ordered
[2022-12-21 11:42] LABS: Glucose, Whole Blood 153 mg/dL (60-115)
[2022-12-21 15:39] LABS: Glucose, Whole Blood 161 mg/dL (60-115)
[2022-12-21 20:38] LABS: Glucose, Whole Blood 156 mg/dL (60-115)
[2022-12-22] VITALS (10 sets, daily range): BP systolic 114–125; BP diastolic 55–61; PULSE 72–128; RESP 16–20; TEMP 35.9–36.6; O2SAT 89–98; BMI 32.9
--- NOTE | 2022-12-22 02:59 | PC.NURSE ---
1900: Handover received and acquired care of pt. Pt. A and O x4. Voices no c/o discomfort, dyspnea or N/V. Pt. states his belly feels much better with NGT in place. NGT to left nare at 75cm. naomi. NGT off suction at beginning of shift. +air auscultation. 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 Pt. due for scheduled evening Digoxin and provastatin by mouth. Pt. ordered NPO. Tigertexted Dr. Maciel re: NPO status and whether to give PO meds. BP of 107/57 and HR [address]. [address] Maciel, hold all PO meds overnight and monitor VS. Per Dr. Maciel, connect NGT to LWS and to cont. POC's as ordered at this time. HS pOC 156. NGT to LWS with semi transparent light brown/yellow drainage. 150cc thus far.
[2022-12-22 07:15] LABS: Anion Gap 11 (12-20); Blood Urea Nitrogen 33 mg/dL (9-16); Calcium 9.1 mg/dL (8.4-10.2); Carbon Dioxide 33 mmol/L (22-29); Chloride 101 mmol/L (96-108); Creatinine Clr Calc Pharmacy 47.9; Estimated Glomerular Filt Rate 47; Glucose Random 131 mg/dL (60-115); Potassium 3.4 mmol/L (3.3-5.1); Sodium 142 mmol/L (135-145)
[2022-12-22 07:30] LABS: Glucose, Whole Blood 150 mg/dL (60-115)
[2022-12-22] MEDS: Albuterol/Iprat 2.5/0.5MG 3 ML AMPUL.NEB INHALE ×3 (07:41→18:50)
[2022-12-22] MEDS: Fluticasone/Vilanterol 200/25 BLST.W.DEV 1 PUFF INHALE (07:41)
--- NOTE | 2022-12-22 07:43 | PM.PNGS ---
Subjective Subjective Date of Service: 12/22/22 Interval history: feels well denies abdl pain passng flatus NGT in place Physical Exam Vital Signs: Vital Signs: Last Vital Signs Temp 97.0 F 12/22/22 07:00 Pulse 76 12/22/22 07:00 Resp 16 12/22/22 07:00 BP 114/55 L 12/22/22 07:00 Pulse Ox 94 12/22/22 07:00 O2 Del Method Nasal Cannula 12/22/22 07:00 O2 Flow Rate 2 12/22/22 07:00 BMI result Body Mass Index 32.9 Const: General: comfortable Resp: Effort & Inspection: normal respiratory effort Cardio: Rhythm: abnormal rhythm GI: Palpation (GI): Soft to palpation, not firm, nontender and no guarding Objective Data Active Medications Acetaminophen (Acetaminophen 325 Mg Tablet) 650 mg PO Q6H PRN PRN Reason: Pain, Mild (Pain Scale 1-3) Albuterol Sulfate (Albuterol Sulfate 90 Mcg 8 Gm Inhaler) 1 puff INHALE QID PRN PRN Reason: shortness of breath or wheezing Albuterol/Ipratropium (Albuterol/Iprat 2.5/0.5mg 3 Ml Ampul.Neb) 3 ml INHALE Q4H PRN PRN Reason: Wheezing Albuterol/Ipratropium (Albuterol/Iprat 2.5/0.5mg 3 Ml Ampul.Neb) 3 ml INHALE RQ4H WHILE AWAKE [facility] Last Admin: 12/22/22 07:41 Dose: 3 ml Documented By: JESS Ascorbic Acid (Ascorbic Acid 500 Mg Tablet) 500 mg PO DAILY [facility] Last Admin: 12/21/22 09:12 Dose: Not Given Documented By: MASSIEL Non-Admin Reason: NPO Cyanocobalamin (Cyanocobalamin (Vitamin B-12) 1,000 Mcg Tablet) 1,000 mcg PO DAILY [facility] Last Admin: 12/21/22 09:13 Dose: Not Given Documented By: MASSIEL Non-Admin Reason: NPO Dextrose (Dextrose 50 % 25 Gm/50 Ml Syringe) 25 gm IVPUSH Q15M PRN; Protocol PRN Reason: per Hypoglycemia Standing Ord. Digoxin (Digoxin 0.125 Mg Tablet) 0.125 mg PO Q2D [facility] Last Admin: 12/21/22 20:50 Dose: Not Given Documented By: GENE Non-Admin Reason: Per Dr. Raheem keith npo Ezetimibe (Ezetimibe 10 Mg Tablet) 10 mg PO DAILY [facility] Last Admin: 12/21/22 09:13 Dose: Not Given Documented By: MASSIEL Non-Admin Reason: NPO Ferrous Sulfate (Ferrous Sulfate 324 Mg Tablet.) 324 mg PO DAILY [facility] Last Admin: 12/21/22 09:13 Dose: Not Given Documented By: MASSIEL Non-Admin Reason: NPO Fluticasone/Vilanterol (Fluticasone/Vilanterol 200/25 Blst.W.Dev) 1 puff INHALE RDAILY [facility] Last Admin: 12/22/22 07:41 Dose: 1 puff Documented By: JESS Glucose (Glucose Gel 15 Gm Gel..Gram.) 15 gm PO Q15M PRN; Protocol PRN Reason: per Hypoglycemia Standing Ord. Insulin Human Lispro (Insulin Lispro 100 Unit/Ml 3 Ml Vial) 0 unit SUBCUT QIDACHS [facility]; Protocol Last Admin: 12/21/22 21:55 Dose: Not Given Documented By: GENE Non-Admin Reason: per Dr. Raheem gayle/t NPO Melatonin (Melatonin 3 Mg Tablet) 6 mg PO BEDTIME PRN PRN Reason: Insomnia Last Admin: 12/20/22 19:36 Dose: 6 mg Documented By: ROBI Metoprolol Succinate (Metoprolol Succinate Er 25 Mg Tab.Er.24h) 25 mg PO DAILY [facility]; Protocol Last Admin: 12/21/22 09:13 Dose: Not Given Documented By: MASSIEL Non-Admin Reason: NPO Omeprazole (Omeprazole 20 Mg Capsule.) 20 mg PO DAILY@0630 [facility] Last Admin: 12/22/22 05:33 Dose: Not Given Documented By: GENE Non-Admin Reason: per md gayle/t npo Ondansetron HCl (Ondansetron Hcl 4 Mg/2 Ml Vial) 4 mg IVPUSH Q8H PRN PRN Reason: Nausea and Vomiting Last Admin: 12/20/22 21:20 Dose: 4 mg Documented By: ROBI Pharmacy Consult (Consult Rx Perform Med Rec) 1 each MISCELLANE ONCE PRN PRN Reason: Consult order Pravastatin Sodium (Pravastatin Sodium 80 Mg Tablet) 80 mg PO BEDTIME [facility] Last Admin: 12/21/22 20:51 Dose: Not Given Documented By: GENE Non-Admin Reason: per dr. raheem atkinson Sodium Chloride (0.9 % Sodium Chloride Flush 3 Ml Syringe) 3 ml IVFLUSH QSHIFT [facility] Last Admin: 12/21/22 23:35 Dose: 3 ml Documented By: GENE Tiotropium [place] (Tiotropium [place] 2.5 Mcg Inhaler) 2 puff INHALE RDAILY [facility] Last Admin: 12/22/22 07:41 Dose: 2 puff Documented By: JESS Labs 12/21/22 10:16 12/22/22 06:36 Labs: Laboratory Results - last 24 hr 12/21/22 12/21/22 12/21/22 07:19 10:16 10:16 MCV 99.0 H MCH 30.2 MCHC 30.5 L RDW 17.6 H Plt Count 243 MPV 10.0 Absolute Nucleated RBC 0.000 Nucleated RBC % (auto) 0.0 Anion Gap 14 Estim Creat Clear Calc 44.5 Estimated GFR 44 POC Glucose 156 H Random Glucose 150 H Calcium 8.7 Magnesium 2.5 12/21/22 12/21/22 12/21/22 11:20 15:34 20:28 MCV MCH MCHC RDW Plt Count MPV Absolute Nucleated RBC Nucleated RBC % (auto) Anion Gap Estim Creat Clear Calc Estimated GFR POC Glucose 153 H 161 H 156 H Random Glucose Calcium Magnesium 12/22/22 12/22/22 06:36 07:03 MCV MCH MCHC RDW Plt Count MPV Absolute Nucleated RBC Nucleated RBC % (auto) Anion Gap 11 L Estim Creat Clear Calc 47.9 Estimated GFR 47 POC Glucose 150 H Random Glucose 131 H Calcium 9.1 Magnesium Procedures Date of Service Date of Service: 12/22/22 Progress Note: A&P Assessment and plan (1) Partial small bowel obstruction: Status: Acute Assessment and Plan: NGT output low overnight abd soft and not distended passing flatus obstruction seems clinically resolved KUB pending hope to be able to remove NGT Time Spent With Patient Time: Total time managing care of this patient today ____ minutes. Quality Stroke Does the patient have a stroke diagnosis?: No VTE Prior VTE?: No VTE Risk Level:: Medical - moderate - high VTE Device Contraindication: Treatment Not Indicated VTE Drug Contraindication: N/A - Med Ordered
--- NOTE | 2022-12-22 10:33 | MHC.CM.PN ---
Per ROUNDS discussion, Patient still has a NGT and is not yet medically cleared for dc; Home with services is the goal and CM will continue to follow.
[2022-12-22 11:41] LABS: Glucose, Whole Blood 134 mg/dL (60-115)
--- NOTE | 2022-12-22 13:28 | HO.PM.IMPN ---
Subjective Subjective Date of Service: 12/22/22 Interval History: tolerating NG tube. Output has decreased. KUB reading pending. No vomiting since tube Review of Systems denies chest pain Denies nausea vomiting diarrhea Denies fever chills Denies shortness of breath Physical Exam Vital Signs: Vital Signs: Last Vital Signs Temp 97.3 F 12/22/22 11:31 Pulse 81 12/22/22 11:31 Resp 18 12/22/22 11:31 BP 115/56 L 12/22/22 11:31 Pulse Ox 94 12/22/22 11:31 O2 Del Method Nasal Cannula 12/22/22 11:31 O2 Flow Rate 2 12/22/22 11:31 BMI result Body Mass Index 32.9 Const: Other: awake alert no acute distress HEENT: Other: NG tube in place Resp: Other: clear but diminished no rales rhonchi or wheez Cardio: Other: no S4; positive S1-S2; no S3 murmurs rubs or gallops GI: Other: soft nontender quiet bowel sounds Extrem: Other: no edema bilaterally Objective Data Active Medications Acetaminophen (Acetaminophen 325 Mg Tablet) 650 mg PO Q6H PRN PRN Reason: Pain, Mild (Pain Scale 1-3) Albuterol Sulfate (Albuterol Sulfate 90 Mcg 8 Gm Inhaler) 1 puff INHALE QID PRN PRN Reason: shortness of breath or wheezing Albuterol/Ipratropium (Albuterol/Iprat 2.5/0.5mg 3 Ml Ampul.Neb) 3 ml INHALE Q4H PRN PRN Reason: Wheezing Albuterol/Ipratropium (Albuterol/Iprat 2.5/0.5mg 3 Ml Ampul.Neb) 3 ml INHALE RQ4H WHILE AWAKE [facility] Last Admin: 12/22/22 11:44 Dose: Not Given Documented By: JESS Non-Admin Reason: Patient Asleep Ascorbic Acid (Ascorbic Acid 500 Mg Tablet) 500 mg PO DAILY [facility] Last Admin: 12/22/22 10:26 Dose: Not Given Documented By: CATE Non-Admin Reason: NPO Cyanocobalamin (Cyanocobalamin (Vitamin B-12) 1,000 Mcg Tablet) 1,000 mcg PO DAILY [facility] Last Admin: 12/22/22 10:26 Dose: Not Given Documented By: CATE Non-Admin Reason: NPO Dextrose (Dextrose 50 % 25 Gm/50 Ml Syringe) 25 gm IVPUSH Q15M PRN; Protocol PRN Reason: per Hypoglycemia Standing Ord. Digoxin (Digoxin 0.125 Mg Tablet) 0.125 mg PO Q2D [facility] Last Admin: 12/21/22 20:50 Dose: Not Given Documented By: GENE Non-Admin Reason: Per Dr. Raheem richey medPolo strict npo Ezetimibe (Ezetimibe 10 Mg Tablet) 10 mg PO DAILY [facility] Last Admin: 12/22/22 10:26 Dose: Not Given Documented By: CATE Non-Admin Reason: NPO Ferrous Sulfate (Ferrous Sulfate 324 Mg Tablet.) 324 mg PO DAILY [facility] Last Admin: 12/22/22 10:26 Dose: Not Given Documented By: CATE Non-Admin Reason: NPO Fluticasone/Vilanterol (Fluticasone/Vilanterol 200/25 Blst.W.Dev) 1 puff INHALE RDAILY [facility] Last Admin: 12/22/22 07:41 Dose: 1 puff Documented By: JESS Glucose (Glucose Gel 15 Gm Gel..Gram.) 15 gm PO Q15M PRN; Protocol PRN Reason: per Hypoglycemia Standing Ord. Insulin Human Lispro (Insulin Lispro 100 Unit/Ml 3 Ml Vial) 0 unit SUBCUT QIDACHS [facility]; Protocol Last Admin: 12/22/22 07:53 Dose: Not Given Documented By: CATE Non-Admin Reason: No Insulin Coverage Melatonin (Melatonin 3 Mg Tablet) 6 mg PO BEDTIME PRN PRN Reason: Insomnia Last Admin: 12/20/22 19:36 Dose: 6 mg Documented By: ORBI Metoprolol Succinate (Metoprolol Succinate Er 25 Mg Tab.Er.24h) 25 mg PO DAILY [facility]; Protocol Last Admin: 12/22/22 10:27 Dose: Not Given Documented By: CATE Non-Admin Reason: NPO Omeprazole (Omeprazole 20 Mg Capsule.) 20 mg PO DAILY@0630 [facility] Last Admin: 12/22/22 05:33 Dose: Not Given Documented By: GENE Non-Admin Reason: per d/t npo Ondansetron HCl (Ondansetron Hcl 4 Mg/2 Ml Vial) 4 mg IVPUSH Q8H PRN PRN Reason: Nausea and Vomiting Last Admin: 12/20/22 21:20 Dose: 4 mg Documented By: ROBI Pharmacy Consult (Consult Rx Perform Med Rec) 1 each MISCELLANE ONCE PRN PRN Reason: Consult order Pravastatin Sodium (Pravastatin Sodium 80 Mg Tablet) 80 mg PO BEDTIME [facility] Last Admin: 12/21/22 20:51 Dose: Not Given Documented By: GENE Non-Admin Reason: per dr. raheem atkinson Sodium Chloride (0.9 % Sodium Chloride Flush 3 Ml Syringe) 3 ml IVFLUSH QSHIFT [facility] Last Admin: 12/21/22 23:35 Dose: 3 ml Documented By: GENE Tiotropium [place] (Tiotropium [place] 2.5 Mcg Inhaler) 2 puff INHALE RDAILY [facility] Last Admin: 12/22/22 07:41 Dose: 2 puff Documented By: JESS Labs 12/21/22 10:16 12/22/22 06:36 Labs: Laboratory Results - last 24 hr 12/21/22 12/21/22 12/22/22 15:34 20:28 06:36 Anion Gap 11 L Estim Creat Clear Calc 47.9 Estimated GFR 47 POC Glucose 161 H 156 H Random Glucose 131 H Calcium 9.1 12/22/22 12/22/22 07:03 11:30 Anion Gap Estim Creat Clear Calc Estimated GFR POC Glucose 150 H 134 H Random Glucose Calcium Assessment and Plan (1) Partial small bowel obstruction: Status: Acute (2) Chronic heart failure with preserved ejection fraction (HFpEF): Status: Acute (3) Chronic a-fib: Status: Acute Plan 72yo M with chronic AF on warfarin, chronic HFpEF, HTN, venous stasis, HLD, DM2, chronic hypoxia due to COPD sent in by plastic fabricator Dr Bird due to CHF exacerbation resistant to oral diuresis; developed small-bowel obstruction while in-house 1.PSBO - NGT with decreased drainage - KUB done this a.m. await read - further plans as per surgery 2.Acute on chronic R-sided HF - events noted; doing well off Lasix drip - continue torsemide as ordered - outpatient follow-up 3.Chronic AF - acceptable rate control on current therapy - digoxin now every other day - Toprol added in favor of diltiazem - await surgical input; if PSBO resolved will restart Coumadin in a.m. 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 Quality Stroke Does the patient have a stroke diagnosis?: No VTE Prior VTE?: No VTE Risk Level:: Medical - moderate - high VTE Device Contraindication: Treatment Not Indicated VTE Drug Contraindication: N/A - Med Ordered
[2022-12-22 16:23] LABS: Glucose, Whole Blood 132 mg/dL (60-115)
[2022-12-22] MEDS: 0.9 % Sodium Chloride Flush 3 ML SYRINGE IVFLUSH (17:56)
[2022-12-22 19:50] LABS: Glucose, Whole Blood 127 mg/dL (60-115)
[2022-12-23] VITALS (7 sets, daily range): BP systolic 109–127; BP diastolic 53–60; PULSE 56–85; RESP 14–20; TEMP 35.9–36.6; O2SAT 93–98; BMI 28.8
[2022-12-23 05:40] LABS: MANUAL DIFF FLAG NO
[2022-12-23 05:42] LABS: Basophils Percent Auto 0.4 % (0-2); Eosinophils Absolute Auto 0.3 X10*3/uL (0.0-0.4); Eosinophils Percent Auto 3.9 % (0-4); Hematocrit 32.7 % (42.0-52.0); Hemoglobin 9.6 g/dl (14.0-18.0); Imm Gran Abs Auto 0.03 X10*3/uL (0.00-0.03); Imm Gran Pct Auto 0.4 % (0.0-0.4); Lymphocytes Absolute Auto 0.9 X10*3/uL (1.2-4.9); Lymphocytes Percent Auto 10.5 % (20-40); Mean Corpuscular HGB Conc 29.4 g/dl (31.0-36.0); Mean Corpuscular Hemoglobin 29.9 pg (27.0-33.0); Mean Corpuscular Volume 101.9 fL (80.0-98.0); Mean Platelet Volume 9.9 fL (9.4-12.4); Monocytes Absolute Auto 0.8 X10*3/uL (0.1-1.2); Monocytes Percent Auto 9.4 % (2-11); Neutrophils Absolute Auto 6.4 x10*3/uL (2.0-8.3); Neutrophils Percent Auto 75.4 % (45-73); Platelet Count 271 X10*3/uL (160-400); Red Blood Count 3.21 X10*6/uL (4.60-5.80); Red Cell Distribution Width 17.3 % (11.0-16.0); White Blood Count 8.4 X10*3/uL (4.8-10.8)
[2022-12-23 05:46] LABS: Prothrombin Time 35.7 SEC (10.0-13.1)
[2022-12-23 06:35] LABS: Alanine Aminotransferase 16 U/L (0-40); Albumin Level 3.6 g/dL (3.5-5.0); Alkaline Phosphatase 42 U/L (39-117); Anion Gap 12 (12-20); Aspartate Amino Transferase 19 U/L (5-37); Bilirubin Total 0.6 mg/dL (0.0-1.0); Blood Urea Nitrogen 29 mg/dL (9-16); Calcium 9.3 mg/dL (8.4-10.2); Carbon Dioxide 33 mmol/L (22-29); Chloride 103 mmol/L (96-108); Creatinine Clr Calc Pharmacy 48.3; Estimated Glomerular Filt Rate 51; Glucose Fasting 106 mg/dL (60-99); Potassium 3.2 mmol/L (3.3-5.1); Sodium 145 mmol/L (135-145); Total Protein 6.8 g/dL (6.5-8.0)
[2022-12-23 07:06] LABS: Glucose, Whole Blood 111 mg/dL (60-115)
[2022-12-23] MEDS: Albuterol/Iprat 2.5/0.5MG 3 ML AMPUL.NEB INHALE (07:59)
[2022-12-23] MEDS: Fluticasone/Vilanterol 200/25 BLST.W.DEV 1 PUFF INHALE (07:59)
[2022-12-23] MEDS: 0.9 % Sodium Chloride Flush 3 ML SYRINGE IVFLUSH ×4 (08:57→20:15)
[2022-12-23 11:06] LABS: Glucose, Whole Blood 104 mg/dL (60-115)
--- NOTE | 2022-12-23 13:01 | P.PNGS_ITS ---
Subjective Subjective Date of Service: 12/23/22 Interval history: seen multiple times today denies abdl pain says he has been passing flatus minimal NGT output today Physical Exam Vital Signs: Vital Signs: Last Vital Signs Temp 98 F 12/23/22 11:14 Pulse 85 12/23/22 11:14 Resp 20 12/23/22 11:14 BP 122/57 L 12/23/22 11:14 Pulse Ox 98 12/23/22 11:14 O2 Del Method Room Air 12/23/22 11:14 O2 Flow Rate 2 12/23/22 07:07 BMI result Body Mass Index 28.8 Const: General: comfortable and no acute distress Cardio: Rhythm: abnormal rhythm GI: Palpation (GI): Soft to palpation, not firm, nontender and no guarding Objective Data Active Medications Acetaminophen (Acetaminophen 325 Mg Tablet) 650 mg PO Q6H PRN PRN Reason: Pain, Mild (Pain Scale 1-3) Albuterol Sulfate (Albuterol Sulfate 90 Mcg 8 Gm Inhaler) 1 puff INHALE QID PRN PRN Reason: shortness of breath or wheezing Ascorbic Acid (Ascorbic Acid 500 Mg Tablet) 500 mg PO DAILY [facility] Last Admin: 12/23/22 09:01 Dose: Not Given Documented By: YOAN Non-Admin Reason: NPO Cyanocobalamin (Cyanocobalamin (Vitamin B-12) 1,000 Mcg Tablet) 1,000 mcg PO DAILY [facility] Last Admin: 12/23/22 09:01 Dose: Not Given Documented By: YOAN Non-Admin Reason: NPO Dextrose (Dextrose 50 % 25 Gm/50 Ml Syringe) 25 gm IVPUSH Q15M PRN; Protocol PRN Reason: per Hypoglycemia Standing Ord. Digoxin (Digoxin 0.125 Mg Tablet) 0.125 mg PO Q2D [facility] Last Admin: 12/21/22 20:50 Dose: Not Given Documented By: GENE Non-Admin Reason: Per Dr. Raheem richey med. strict npo Ezetimibe (Ezetimibe 10 Mg Tablet) 10 mg PO DAILY [facility] Last Admin: 12/23/22 09:01 Dose: Not Given Documented By: YOAN Non-Admin Reason: NPO Ferrous Sulfate (Ferrous Sulfate 324 Mg Tablet.) 324 mg PO DAILY [facility] Last Admin: 12/23/22 09:01 Dose: Not Given Documented By: YOAN Non-Admin Reason: NPO Fluticasone/Vilanterol (Fluticasone/Vilanterol 200/25 Blst.W.Dev) 1 puff INHALE RDAILY [facility] Last Admin: 12/23/22 07:59 Dose: 1 puff Documented By: JESS Glucose (Glucose Gel 15 Gm Gel..Gram.) 15 gm PO Q15M PRN; Protocol PRN Reason: per Hypoglycemia Standing Ord. Insulin Human Lispro (Insulin Lispro 100 Unit/Ml 3 Ml Vial) 0 unit SUBCUT QIDACHS [facility]; Protocol Last Admin: 12/23/22 11:38 Dose: Not Given Documented By: YOAN Non-Admin Reason: No Insulin Coverage Melatonin (Melatonin 3 Mg Tablet) 6 mg PO BEDTIME PRN PRN Reason: Insomnia Last Admin: 12/20/22 19:36 Dose: 6 mg Documented By: ROBI Metoprolol Succinate (Metoprolol Succinate Er 25 Mg Tab.Er.24h) 25 mg PO DAILY [facility]; Protocol Last Admin: 12/23/22 09:01 Dose: Not Given Documented By: YOAN Non-Admin Reason: NPO Omeprazole (Omeprazole 20 Mg [place].) 20 mg PO DAILY@0630 [facility] Last Admin: 12/23/22 05:38 Dose: Not Given Documented By: GENE Non-Admin Reason: pt. npo per md richey meds. Ondansetron HCl (Ondansetron Hcl 4 Mg/2 Ml Vial) 4 mg IVPUSH Q8H PRN PRN Reason: Nausea and Vomiting Last Admin: 12/20/22 21:20 Dose: 4 mg Documented By: ROBI Pharmacy Consult (Consult Rx Perform Med Rec) 1 each MISCELLANE ONCE PRN PRN Reason: Consult order Pravastatin Sodium (Pravastatin Sodium 80 Mg Tablet) 80 mg PO BEDTIME [facility] Last Admin: 12/22/22 20:19 Dose: Not Given Documented By: GENE Non-Admin Reason: per Dr. Chele richey d//t NPO Sodium Chloride (0.9 % Sodium Chloride Flush 3 Ml Syringe) 3 ml IVFLUSH QSHIFT [facility] Last Admin: 12/23/22 08:57 Dose: 3 ml Documented By: YOAN Tiotropium [place] (Tiotropium [place] 2.5 Mcg Inhaler) 2 puff INHALE RDAILY [facility] Last Admin: 12/23/22 07:59 Dose: 2 puff Documented By: JESS Labs 12/23/22 05:31 12/23/22 05:31 Labs: Laboratory Results - last 24 hr 12/22/22 12/22/22 12/23/22 16:09 19:43 05:31 MCV 101.9 H MCH 29.9 MCHC 29.4 L RDW 17.3 H Plt Count 271 MPV 9.9 Immature Gran % (Auto) 0.4 Neut % (Auto) 75.4 H Lymph % (Auto) 10.5 L [place] % (Auto) 9.4 Eos % (Auto) 3.9 Baso % (Auto) 0.4 Lymph # (Auto) 0.9 L [place] # (Auto) 0.8 Eos # (Auto) 0.3 Baso # (Auto) 0.0 Abs Immat Gran (auto) 0.03 Absolute Neuts (auto) 6.4 Absolute Nucleated RBC 0.000 Nucleated RBC % (auto) 0.0 PT INR Anion Gap Estim Creat Clear Calc Estimated GFR POC Glucose 132 H 127 H Fasting Glucose Calcium Total Bilirubin AST ALT Alkaline Phosphatase Total Protein Albumin 12/23/22 12/23/22 12/23/22 05:31 05:31 06:52 MCV MCH MCHC RDW Plt Count MPV Immature Gran % (Auto) Neut % (Auto) Lymph % (Auto) [place] % (Auto) Eos % (Auto) Baso % (Auto) Lymph # (Auto) [place] # (Auto) Eos # (Auto) Baso # (Auto) Abs Immat Gran (auto) Absolute Neuts (auto) Absolute Nucleated RBC Nucleated RBC % (auto) PT 35.7 H INR 3.0 H Anion Gap 12 Estim Creat Clear Calc 48.3 Estimated GFR 51 POC Glucose 111 Fasting Glucose 106 H Calcium 9.3 Total Bilirubin 0.6 AST 19 ALT 16 Alkaline Phosphatase 42 Total Protein 6.8 Albumin 3.6 12/23/22 11:04 MCV MCH MCHC RDW Plt Count MPV Immature Gran % (Auto) Neut % (Auto) Lymph % (Auto) [place] % (Auto) Eos % (Auto) Baso % (Auto) Lymph # (Auto) [place] # (Auto) Eos # (Auto) Baso # (Auto) Abs Immat Gran (auto) Absolute Neuts (auto) Absolute Nucleated RBC Nucleated RBC % (auto) PT INR Anion Gap Estim Creat Clear Calc Estimated GFR POC Glucose 104 Fasting Glucose Calcium Total Bilirubin AST ALT Alkaline Phosphatase Total Protein Albumin Procedures Date of Service Date of Service: 12/23/22 Progress Note: A&P Assessment and plan (1) Partial small bowel obstruction: Status: Acute Assessment and Plan: clinically resolved KUB yesterday shows some dilated SB loops but good air distally in the colon abd soft, very benign will dc NGT ok to have clear liquids Time Spent With Patient Time: Total time managing care of this patient today ____ minutes. Quality Stroke Does the patient have a stroke diagnosis?: No VTE Prior VTE?: No VTE Risk Level:: Medical - moderate - high VTE Device Contraindication: Treatment Not Indicated VTE Drug Contraindication: N/A - Med Ordered
[2022-12-23] MEDS: Ascorbic Acid 500 MG TABLET PO (15:16)
[2022-12-23] MEDS: Metoprolol Succinate ER 25 MG TAB.ER.24H PO (15:17)
[2022-12-23] MEDS: Ezetimibe 10 MG TABLET PO (15:17)
[2022-12-23] MEDS: Omeprazole 20 MG CAPSULE.DR PO (15:18)
[2022-12-23] MEDS: Cyanocobalamin (Vitamin B-12) 1,000 MCG TABLET 1000 MCG PO (15:24)
--- NOTE | 2022-12-23 15:57 | HO.PM.IMPN ---
Subjective Subjective Date of Service: 12/23/22 Interval History: doing better today. KUB noted. NG tube removed. . . Thus far doing well Review of Systems denies chest pain Denies nausea vomiting diarrhea Denies fever chills Denies shortness of breath Physical Exam Vital Signs: Vital Signs: Last Vital Signs Temp 96.9 F 12/23/22 15:15 Pulse 80 12/23/22 15:15 Resp 14 12/23/22 15:15 BP 120/60 12/23/22 15:15 Pulse Ox 95 12/23/22 15:15 O2 Del Method Nasal Cannula 12/23/22 15:15 O2 Flow Rate 2 12/23/22 15:15 BMI result Body Mass Index 28.8 Const: Other: awake alert no acute distress HEENT: Other: NG tube in place Resp: Other: clear but diminished no rales rhonchi or wheez Cardio: Other: no S4; positive S1-S2; no S3 murmurs rubs or gallops GI: Other: soft nontender quiet bowel sounds Extrem: Other: no edema bilaterally Objective Data Active Medications Acetaminophen (Acetaminophen 325 Mg Tablet) 650 mg PO Q6H PRN PRN Reason: Pain, Mild (Pain Scale 1-3) Albuterol Sulfate (Albuterol Sulfate 90 Mcg 8 Gm Inhaler) 1 puff INHALE QID PRN PRN Reason: shortness of breath or wheezing Ascorbic Acid (Ascorbic Acid 500 Mg Tablet) 500 mg PO DAILY [facility] Last Admin: 12/23/22 15:16 Dose: 500 mg Documented By: YOAN Comments: Given late after D/C of NG-tube per Cyanocobalamin (Cyanocobalamin (Vitamin B-12) 1,000 Mcg Tablet) 1,000 mcg PO DAILY [facility] Last Admin: 12/23/22 15:24 Dose: 1,000 mcg Documented By: YOAN Comments: Given late after D/C of NG-tube per Dextrose (Dextrose 50 % 25 Gm/50 Ml Syringe) 25 gm IVPUSH Q15M PRN; Protocol PRN Reason: per Hypoglycemia Standing Ord. Digoxin (Digoxin 0.125 Mg Tablet) 0.125 mg PO Q2D [facility] Last Admin: 12/21/22 20:50 Dose: Not Given Documented By: GENE Non-Admin Reason: Per Dr. Raheem richey med. strict npo Ezetimibe (Ezetimibe 10 Mg Tablet) 10 mg PO DAILY [facility] Last Admin: 12/23/22 15:17 Dose: 10 mg Documented By: YOAN Comments: Given late after D/C of NG-tube per Ferrous Sulfate (Ferrous Sulfate 324 Mg Tablet.) 324 mg PO DAILY [facility] Last Admin: 12/23/22 09:01 Dose: Not Given Documented By: YOAN Non-Admin Reason: NPO Fluticasone/Vilanterol (Fluticasone/Vilanterol 200/25 Blst.W.Dev) 1 puff INHALE RDAILY [facility] Last Admin: 12/23/22 07:59 Dose: 1 puff Documented By: JESS Glucose (Glucose Gel 15 Gm Gel..Gram.) 15 gm PO Q15M PRN; Protocol PRN Reason: per Hypoglycemia Standing Ord. Insulin Human Lispro (Insulin Lispro 100 Unit/Ml 3 Ml Vial) 0 unit SUBCUT QIDACHS [facility]; Protocol Last Admin: 12/23/22 11:38 Dose: Not Given Documented By: YOAN Non-Admin Reason: No Insulin Coverage Melatonin (Melatonin 3 Mg Tablet) 6 mg PO BEDTIME PRN PRN Reason: Insomnia Last Admin: 12/20/22 19:36 Dose: 6 mg Documented By: ROBI Metoprolol Succinate (Metoprolol Succinate Er 25 Mg Tab.Er.24h) 25 mg PO DAILY [facility]; Protocol Last Admin: 12/23/22 15:17 Dose: 25 mg Documented By: YOAN Comments: Given late after D/C of NG-tube per Omeprazole (Omeprazole 20 Mg Capsule.) 20 mg PO DAILY@0630 [facility] Last Admin: 12/23/22 15:18 Dose: 20 mg Documented By: YOAN Comments: Given late after D/C of NG-tube per Ondansetron HCl (Ondansetron Hcl 4 Mg/2 Ml Vial) 4 mg IVPUSH Q8H PRN PRN Reason: Nausea and Vomiting Last Admin: 12/20/22 21:20 Dose: 4 mg Documented By: ROBI Pharmacy Consult (Consult Rx Perform Med Rec) 1 each MISCELLANE ONCE PRN PRN Reason: Consult order Pravastatin Sodium (Pravastatin Sodium 80 Mg Tablet) 80 mg PO BEDTIME [facility] Last Admin: 12/22/22 20:19 Dose: Not Given Documented By: GENE Non-Admin Reason: per Dr. Chele richey d//t NPO Sodium Chloride (0.9 % Sodium Chloride Flush 3 Ml Syringe) 3 ml IVFLUSH QSHIFT [facility] Last Admin: 12/23/22 15:20 Dose: 3 ml Documented By: YOAN Tiotropium Wanda (Tiotropium Wanda 2.5 Mcg Inhaler) 2 puff INHALE RDAILY [facility] Last Admin: 12/23/22 07:59 Dose: 2 puff Documented By: JESS Labs 12/23/22 05:31 12/23/22 05:31 Labs: Laboratory Results - last 24 hr 12/22/22 12/22/22 12/23/22 16:09 19:43 05:31 MCV 101.9 H MCH 29.9 MCHC 29.4 L RDW 17.3 H Plt Count 271 MPV 9.9 Immature Gran % (Auto) 0.4 Neut % (Auto) 75.4 H Lymph % (Auto) 10.5 L [place] % (Auto) 9.4 Eos % (Auto) 3.9 Baso % (Auto) 0.4 Lymph # (Auto) 0.9 L [place] # (Auto) 0.8 Eos # (Auto) 0.3 Baso # (Auto) 0.0 Abs Immat Gran (auto) 0.03 Absolute Neuts (auto) 6.4 Absolute Nucleated RBC 0.000 Nucleated RBC % (auto) 0.0 PT INR Anion Gap Estim Creat Clear Calc Estimated GFR POC Glucose 132 H 127 H Fasting Glucose Calcium Total Bilirubin AST ALT Alkaline Phosphatase Total Protein Albumin 12/23/22 12/23/22 12/23/22 05:31 05:31 06:52 MCV MCH MCHC RDW Plt Count MPV Immature Gran % (Auto) Neut % (Auto) Lymph % (Auto) [place] % (Auto) Eos % (Auto) Baso % (Auto) Lymph # (Auto) [place] # (Auto) Eos # (Auto) Baso # (Auto) Abs Immat Gran (auto) Absolute Neuts (auto) Absolute Nucleated RBC Nucleated RBC % (auto) PT 35.7 H INR 3.0 H Anion Gap 12 Estim Creat Clear Calc 48.3 Estimated GFR 51 POC Glucose 111 Fasting Glucose 106 H Calcium 9.3 Total Bilirubin 0.6 AST 19 ALT 16 Alkaline Phosphatase 42 Total Protein 6.8 Albumin 3.6 12/23/22 11:04 MCV MCH MCHC RDW Plt Count MPV Immature Gran % (Auto) Neut % (Auto) Lymph % (Auto) [place] % (Auto) Eos % (Auto) Baso % (Auto) Lymph # (Auto) [place] # (Auto) Eos # (Auto) Baso # (Auto) Abs Immat Gran (auto) Absolute Neuts (auto) Absolute Nucleated RBC Nucleated RBC % (auto) PT INR Anion Gap Estim Creat Clear Calc Estimated GFR POC Glucose 104 Fasting Glucose Calcium Total Bilirubin AST ALT Alkaline Phosphatase Total Protein Albumin Assessment and Plan (1) Partial small bowel obstruction: Status: Acute (2) Chronic a-fib: Status: Acute (3) Diabetes mellitus: Status: Acute Plan 72yo M with chronic AF on warfarin, chronic HFpEF, HTN, venous stasis, HLD, DM2, chronic hypoxia due to COPD sent in by wool handler Dr Bird due to CHF exacerbation resistant to oral diuresis; developed small-bowel obstruction while in-house 1.PSBO - resolving - NG tube DC - follow response to diet 2.Acute on chronic R-sided HF - events noted; doing well off Lasix drip - continue torsemide as ordered - outpatient follow-up 3.Chronic AF - acceptable rate control on current therapy - digoxin now every other day - Toprol added in favor of diltiazem - restart Coumadin a.m. 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 Quality Stroke Does the patient have a stroke diagnosis?: No VTE Prior VTE?: No VTE Risk Level:: Medical - moderate - high VTE Device Contraindication: Treatment Not Indicated VTE Drug Contraindication: N/A - Med Ordered
[2022-12-23 16:12] LABS: Glucose, Whole Blood 94 mg/dL (60-115)
--- NOTE | 2022-12-23 19:55 | PC.NURSE ---
Assumed care at 07:00. Patient cooperative and compliant with care, A&O x4. NGT to right nare removed per MD at 15:30, noted 150 ccs of brownish drainage in the collection cannister. 2LPM nasal cannula, breathing easy and regular. Diet advanced to clears by MD.
[2022-12-23 20:04] LABS: Glucose, Whole Blood 239 mg/dL (60-115)
[2022-12-23] MEDS: Melatonin 3 MG TABLET 6 MG PO (20:13)
[2022-12-23] MEDS: Digoxin 0.125 MG TABLET PO (20:13)
[2022-12-23] MEDS: Pravastatin Sodium 80 MG TABLET PO (20:13)
[2022-12-23] MEDS: Insulin Lispro 100 UNIT/ML 3 ML VIAL SUBCUT (20:14)
[2022-12-24] VITALS (8 sets, daily range): BP systolic 107–126; BP diastolic 54–59; PULSE 60–147; RESP 13–20; TEMP 36–36.2; O2SAT 90–98; BMI 29.2
[2022-12-24] MEDS: Omeprazole 20 MG CAPSULE.DR PO (05:11)
[2022-12-24 07:18] LABS: Basophils Percent Auto 0.5 % (0-2); Eosinophils Absolute Auto 0.3 X10*3/uL (0.0-0.4); Eosinophils Percent Auto 3.4 % (0-4); Hemoglobin 9.6 g/dl (14.0-18.0); Imm Gran Abs Auto 0.04 X10*3/uL (0.00-0.03); Imm Gran Pct Auto 0.5 % (0.0-0.4); Lymphocytes Percent Auto 12.2 % (20-40); MANUAL DIFF FLAG NO; Mean Corpuscular Hemoglobin 30.6 pg (27.0-33.0); Mean Corpuscular Volume 101.9 fL (80.0-98.0); Mean Platelet Volume 9.7 fL (9.4-12.4); Monocytes Absolute Auto 0.7 X10*3/uL (0.1-1.2); Monocytes Percent Auto 8.4 % (2-11); Platelet Count 257 X10*3/uL (160-400); Red Blood Count 3.14 X10*6/uL (4.60-5.80); Red Cell Distribution Width 17.2 % (11.0-16.0)
[2022-12-24 07:26] LABS: INTERNATIONAL NORM RATIO 2.7 (0.9-1.1); Prothrombin Time 33.4 SEC (11.1-13.3)
[2022-12-24 07:40] LABS: Alanine Aminotransferase 14 U/L (0-40); Albumin Level 3.4 g/dL (3.5-5.0); Alkaline Phosphatase 45 U/L (39-117); Anion Gap 12 (12-20); Aspartate Amino Transferase 20 U/L (5-37); Bilirubin Total 0.5 mg/dL (0.0-1.0); Blood Urea Nitrogen 27 mg/dL (9-16); Carbon Dioxide 32 mmol/L (22-29); Chloride 102 mmol/L (96-108); Creatinine Clr Calc Pharmacy 51.2; Estimated Glomerular Filt Rate 55; Glucose Fasting 100 mg/dL (60-99); Potassium 3.7 mmol/L (3.3-5.1); Sodium 142 mmol/L (135-145); Total Protein 6.3 g/dL (6.5-8.0)
[2022-12-24 07:45] LABS: Glucose, Whole Blood 95 mg/dL (60-115)
[2022-12-24] MEDS: Fluticasone/Vilanterol 200/25 BLST.W.DEV 1 PUFF INHALE (07:46)
[2022-12-24] MEDS: Ferrous Sulfate 324 MG TABLET.DR PO (08:27)
[2022-12-24] MEDS: Ascorbic Acid 500 MG TABLET PO (08:27)
[2022-12-24] MEDS: Cyanocobalamin (Vitamin B-12) 1,000 MCG TABLET 1000 MCG PO (08:27)
[2022-12-24] MEDS: Metoprolol Succinate ER 25 MG TAB.ER.24H PO (08:27)
[2022-12-24] MEDS: 0.9 % Sodium Chloride Flush 3 ML SYRINGE IVFLUSH ×2 (08:27→20:32)
[2022-12-24] MEDS: Ezetimibe 10 MG TABLET PO (08:27)
--- NOTE | 2022-12-24 08:57 | PM.PNGS ---
Subjective Subjective Date of Service: 12/24/22 Interval history: NG tube removed yesterday afternoon No vomiting or nausea He says he has no abdominal pain Feels well Physical Exam Vital Signs: Vital Signs: Last Vital Signs Temp 96.8 F 12/24/22 07:29 Pulse 67 12/24/22 07:50 Resp 18 12/24/22 07:50 BP 113/55 L 12/24/22 07:29 Pulse Ox 95 12/24/22 07:29 O2 Del Method Nasal Cannula 12/24/22 07:29 O2 Flow Rate 2 12/24/22 07:29 BMI result Body Mass Index 29.2 Const: General: comfortable and no acute distress Resp: Effort & Inspection: normal respiratory effort Cardio: Rhythm: abnormal rhythm GI: Palpation (GI): Soft to palpation, not firm and nontender Objective Data Active Medications Acetaminophen (Acetaminophen 325 Mg Tablet) 650 mg PO Q6H PRN PRN Reason: Pain, Mild (Pain Scale 1-3) Albuterol Sulfate (Albuterol Sulfate 90 Mcg 8 Gm Inhaler) 1 puff INHALE QID PRN PRN Reason: shortness of breath or wheezing Ascorbic Acid (Ascorbic Acid 500 Mg Tablet) 500 mg PO DAILY [facility] Last Admin: 12/24/22 08:27 Dose: 500 mg Documented By: MARISOL Cyanocobalamin (Cyanocobalamin (Vitamin B-12) 1,000 Mcg Tablet) 1,000 mcg PO DAILY [facility] Last Admin: 12/24/22 08:27 Dose: 1,000 mcg Documented By: MARISOL Dextrose (Dextrose 50 % 25 Gm/50 Ml Syringe) 25 gm IVPUSH Q15M PRN; Protocol PRN Reason: per Hypoglycemia Standing Ord. Digoxin (Digoxin 0.125 Mg Tablet) 0.125 mg PO Q2D [facility] Last Admin: 12/23/22 20:13 Dose: 0.125 mg Documented By: TREVA Ezetimibe (Ezetimibe 10 Mg Tablet) 10 mg PO DAILY [facility] Last Admin: 12/24/22 08:27 Dose: 10 mg Documented By: MARISOL Ferrous Sulfate (Ferrous Sulfate 324 Mg Tablet.) 324 mg PO DAILY [facility] Last Admin: 12/24/22 08:27 Dose: 324 mg Documented By: MARISOL Fluticasone/Vilanterol (Fluticasone/Vilanterol 200/25 Blst.W.Dev) 1 [facility] Last Admin: 12/24/22 07:46 Dose: 1 puff Documented By: CHAYO Glucose (Glucose Gel 15 Gm Gel..Gram.) 15 gm PO Q15M PRN; Protocol PRN Reason: per Hypoglycemia Standing Ord. Insulin Human Lispro (Insulin Lispro 100 Unit/Ml 3 Ml Vial) 0 unit SUBCUT QIDACHS [facility]; Protocol Last Admin: 12/24/22 07:34 Dose: Not Given Documented By: MARISOL Non-Admin Reason: No Insulin Coverage Melatonin (Melatonin 3 Mg Tablet) 6 mg PO BEDTIME PRN PRN Reason: Insomnia Last Admin: 12/23/22 20:13 Dose: 6 mg Documented By: TREVA Metoprolol Succinate (Metoprolol Succinate Er 25 Mg Tab.Er.24h) 25 mg PO DAILY [facility]; Protocol Last Admin: 12/24/22 08:27 Dose: 25 mg Documented By: MARISOL Omeprazole (Omeprazole 20 Mg Capsule.Dr) 20 mg PO DAILY@0630 [facility] Last Admin: 12/24/22 05:11 Dose: 20 mg Documented By: TREVA Ondansetron HCl (Ondansetron Hcl 4 Mg/2 Ml Vial) 4 mg IVPUSH Q8H PRN PRN Reason: Nausea and Vomiting Last Admin: 12/20/22 21:20 Dose: 4 mg Documented By: ROBI Pharmacy Consult (Consult Rx Perform Med Rec) 1 each MISCELLANE ONCE PRN PRN Reason: Consult order Pravastatin Sodium (Pravastatin Sodium 80 Mg Tablet) 80 mg PO BEDTIME [facility] Last Admin: 12/23/22 20:13 Dose: 80 mg Documented By: TREVA Sodium Chloride (0.9 % Sodium Chloride Flush 3 Ml [facility]) [facility] Admin: 12/24/22 08:27 Dose: 3 ml Documented By: MARISOL Tiotropium [place] (Tiotropium [place] 2.5 Mcg Inhaler) 2 puff [facility] Last Admin: 12/24/22 07:46 Dose: 2 puff Documented By: CHAYO Labs 12/24/22 07:05 12/24/22 07:05 Labs: Laboratory Results - last 24 hr 12/23/22 12/23/22 12/23/22 11:04 15:18 20:00 MCV MCH MCHC RDW Plt Count MPV Immature Gran % (Auto) Neut % (Auto) Lymph % (Auto) [place] % (Auto) Eos % (Auto) Baso % (Auto) Lymph # (Auto) [place] # (Auto) Eos # (Auto) Baso # (Auto) Abs Immat Gran (auto) Absolute Neuts (auto) Absolute Nucleated RBC Nucleated RBC % (auto) PT INR Anion Gap Estim Creat Clear Calc Estimated GFR POC Glucose 104 94 239 H Fasting Glucose Calcium Total Bilirubin AST ALT Alkaline Phosphatase Total Protein Albumin 12/24/22 12/24/22 12/24/22 07:05 07:05 07:05 MCV 101.9 H MCH 30.6 MCHC 30.0 L RDW 17.2 H Plt Count 257 MPV 9.7 Immature Gran % (Auto) 0.5 H Neut % (Auto) 75.0 H Lymph % (Auto) 12.2 L [place] % (Auto) 8.4 Eos % (Auto) 3.4 Baso % (Auto) 0.5 Lymph # (Auto) 1.0 L [place] # (Auto) 0.7 Eos # (Auto) 0.3 Baso # (Auto) 0.0 Abs Immat Gran (auto) 0.04 H Absolute Neuts (auto) 6.0 Absolute Nucleated RBC 0.000 Nucleated RBC % (auto) 0.0 PT 33.4 H INR 2.7 H Anion Gap 12 Estim Creat Clear Calc 51.2 Estimated GFR 55 POC Glucose Fasting Glucose 100 H Calcium 9.0 Total Bilirubin 0.5 AST 20 ALT 14 Alkaline Phosphatase 45 Total Protein 6.3 L Albumin 3.4 L 12/24/22 07:31 MCV MCH MCHC RDW Plt Count MPV Immature Gran % (Auto) Neut % (Auto) Lymph % (Auto) [place] % (Auto) Eos % (Auto) Baso % (Auto) Lymph # (Auto) [place] # (Auto) Eos # (Auto) Baso # (Auto) Abs Immat Gran (auto) Absolute Neuts (auto) Absolute Nucleated RBC Nucleated RBC % (auto) PT INR Anion Gap Estim Creat Clear Calc Estimated GFR POC Glucose 95 Fasting Glucose Calcium Total Bilirubin AST ALT Alkaline Phosphatase Total Protein Albumin Procedures Date of Service Date of Service: 12/24/22 Progress Note: A&P Assessment and plan (1) Partial small bowel obstruction: Status: Acute Assessment and Plan: Symptoms completely resolve Clear liquids today and slowly advance diet as tolerated Looks well Abdomen soft and very benign Doing well from surgical standpoint Time Spent With Patient Time: Total time managing care of this patient today ____ minutes. Quality Stroke Does the patient have a stroke diagnosis?: No VTE Prior VTE?: No VTE Risk Level:: Medical - moderate - high VTE Device Contraindication: Treatment Not Indicated VTE Drug Contraindication: N/A - Med Ordered
--- NOTE | 2022-12-24 11:03 | MHC.CM.PN ---
Patient is not yet medically cleared for dc (Clear liquids today and slowly advance diet); PT recommends home with services and CM will continue to follow.
[2022-12-24 12:21] LABS: Glucose, Whole Blood 171 mg/dL (60-115)
[2022-12-24] MEDS: Insulin Lispro 100 UNIT/ML 3 ML VIAL SUBCUT ×2 (12:25→20:30)
[2022-12-24 14:52] LABS: Haptoglobin 216 mg/dL (43-212)
[2022-12-24 15:22] LABS: Glucose, Whole Blood 83 mg/dL (60-115)
--- NOTE | 2022-12-24 16:00 | P.PNIM_ITS ---
Subjective Subjective Date of Service: 12/24/22 Interval History: continues to do well. Tolerating advancement of diet Review of Systems denies chest pain Denies nausea vomiting diarrhea Denies fever chills Denies shortness of breath Physical Exam Vital Signs: Vital Signs: Last Vital Signs Temp 97.0 F 12/24/22 15:14 Pulse 66 12/24/22 15:14 Resp 14 12/24/22 15:14 BP 119/54 L 12/24/22 15:14 Pulse Ox 97 12/24/22 15:14 O2 Del Method Nasal Cannula 12/24/22 15:14 O2 Flow Rate 2 12/24/22 15:14 BMI result Body Mass Index 29.2 Const: Other: awake alert no acute distress HEENT: Other: NG tube in place Resp: Other: clear but diminished no rales rhonchi or wheez Cardio: Other: no S4; positive S1-S2; no S3 murmurs rubs or gallops GI: Other: soft nontender quiet bowel sounds Extrem: Other: no edema bilaterally Objective Data Active Medications Acetaminophen (Acetaminophen 325 Mg Tablet) 650 mg PO Q6H PRN PRN Reason: Pain, Mild (Pain Scale 1-3) Albuterol Sulfate (Albuterol Sulfate 90 Mcg 8 Gm Inhaler) 1 puff INHALE QID PRN PRN Reason: shortness of breath or wheezing Ascorbic Acid (Ascorbic Acid 500 Mg Tablet) 500 mg PO DAILY [facility] Last Admin: 12/24/22 08:27 Dose: 500 mg Documented By: MARISOL Cyanocobalamin (Cyanocobalamin (Vitamin B-12) 1,000 Mcg Tablet) 1,000 mcg PO DAILY [facility] Last Admin: 12/24/22 08:27 Dose: 1,000 mcg Documented By: MARISOL Dextrose (Dextrose 50 % 25 Gm/50 Ml Syringe) 25 gm IVPUSH Q15M PRN; Protocol PRN Reason: per Hypoglycemia Standing Ord. Digoxin (Digoxin 0.125 Mg Tablet) 0.125 mg PO Q2D [facility] Last Admin: 12/23/22 20:13 Dose: 0.125 mg Documented By: TREVA Ezetimibe (Ezetimibe 10 Mg Tablet) 10 mg PO DAILY [facility] Last Admin: 12/24/22 08:27 Dose: 10 mg Documented By: MARISOL Ferrous Sulfate (Ferrous Sulfate 324 Mg Tablet.) 324 mg PO DAILY [facility] Last Admin: 12/24/22 08:27 Dose: 324 mg Documented By: MARISOL Fluticasone/Vilanterol (Fluticasone/Vilanterol 200/25 Blst.W.Dev) 1 puff INHALE RDAILY [facility] Last Admin: 12/24/22 07:46 Dose: 1 puff Documented By: CHAYO Glucose (Glucose Gel 15 Gm Gel..Gram.) 15 gm PO Q15M PRN; Protocol PRN Reason: per Hypoglycemia Standing Ord. Insulin Human Lispro (Insulin Lispro 100 Unit/Ml 3 Ml Vial) 0 unit SUBCUT QIDACHS [facility]; Protocol Last Admin: 12/24/22 12:25 Dose: 5 unit Documented By: MARISOL Melatonin (Melatonin 3 Mg Tablet) 6 mg PO BEDTIME PRN PRN Reason: Insomnia Last Admin: 12/23/22 20:13 Dose: 6 mg Documented By: TREVA Metoprolol Succinate (Metoprolol Succinate Er 25 Mg Tab.Er.24h) 25 mg PO DAILY [facility]; Protocol Last Admin: 12/24/22 08:27 Dose: 25 mg Documented By: MARISOL Omeprazole (Omeprazole 20 Mg Capsule.) 20 mg PO DAILY@0630 [facility] Last Admin: 12/24/22 05:11 Dose: 20 mg Documented By: TREVA Ondansetron HCl (Ondansetron Hcl 4 Mg/2 Ml Vial) 4 mg IVPUSH Q8H PRN PRN Reason: Nausea and Vomiting Last Admin: 12/20/22 21:20 Dose: 4 mg Documented By: ROBI Pharmacy Consult (Consult Rx Perform Med Rec) 1 each MISCELLANE ONCE PRN PRN Reason: Consult order Pravastatin Sodium (Pravastatin Sodium 80 Mg Tablet) 80 mg PO BEDTIME [facility] Last Admin: 12/23/22 20:13 Dose: 80 mg Documented By: TREVA Sodium Chloride (0.9 % Sodium Chloride Flush 3 Ml Syringe) 3 ml IVFLUSH QSHIFT [facility] Last Admin: 12/24/22 08:27 Dose: 3 ml Documented By: MARISOL Tiotropium [place] (Tiotropium [place] 2.5 Mcg Inhaler) 2 puff INHALE RDAILY [facility] Last Admin: 12/24/22 07:46 Dose: 2 puff Documented By: CHAYO Labs 12/24/22 07:05 12/24/22 07:05 Labs: Laboratory Results - last 24 hr 12/19/22 12/23/22 12/23/22 05:25 15:18 20:00 MCV MCH MCHC RDW Plt Count MPV Immature Gran % (Auto) Neut % (Auto) Lymph % (Auto) [place] % (Auto) Eos % (Auto) Baso % (Auto) Lymph # (Auto) [place] # (Auto) Eos # (Auto) Baso # (Auto) Abs Immat Gran (auto) Absolute Neuts (auto) Absolute Nucleated RBC Nucleated RBC % (auto) Haptoglobin 216 H PT INR Anion Gap Estim Creat Clear Calc Estimated GFR POC Glucose 94 239 H Fasting Glucose Calcium Total Bilirubin AST ALT Alkaline Phosphatase Total Protein Albumin 12/24/22 12/24/22 12/24/22 07:05 07:05 07:05 MCV 101.9 H MCH 30.6 MCHC 30.0 L RDW 17.2 H Plt Count 257 MPV 9.7 Immature Gran % (Auto) 0.5 H Neut % (Auto) 75.0 H Lymph % (Auto) 12.2 L [place] % (Auto) 8.4 Eos % (Auto) 3.4 Baso % (Auto) 0.5 Lymph # (Auto) 1.0 L [place] # (Auto) 0.7 Eos # (Auto) 0.3 Baso # (Auto) 0.0 Abs Immat Gran (auto) 0.04 H Absolute Neuts (auto) 6.0 Absolute Nucleated RBC 0.000 Nucleated RBC % (auto) 0.0 Haptoglobin PT 33.4 H INR 2.7 H Anion Gap 12 Estim Creat Clear Calc 51.2 Estimated GFR 55 POC Glucose Fasting Glucose 100 H Calcium 9.0 Total Bilirubin 0.5 AST 20 ALT 14 Alkaline Phosphatase 45 Total Protein 6.3 L Albumin 3.4 L 12/24/22 12/24/22 12/24/22 07:31 11:28 15:17 MCV MCH MCHC RDW Plt Count MPV Immature Gran % (Auto) Neut % (Auto) Lymph % (Auto) [place] % (Auto) Eos % (Auto) Baso % (Auto) Lymph # (Auto) [place] # (Auto) Eos # (Auto) Baso # (Auto) Abs Immat Gran (auto) Absolute Neuts (auto) Absolute Nucleated RBC Nucleated RBC % (auto) Haptoglobin PT INR Anion Gap Estim Creat Clear Calc Estimated GFR POC Glucose 95 171 H 83 Fasting Glucose Calcium Total Bilirubin AST ALT Alkaline Phosphatase Total Protein Albumin Assessment and Plan (1) Partial small bowel obstruction: Status: Acute (2) Chronic a-fib: Status: Acute Plan 72yo M with chronic AF on warfarin, chronic HFpEF, HTN, venous stasis, HLD, DM2, chronic hypoxia due to COPD sent in by [employer] math tutor Dr Bird due to CHF exacerbation resistant to oral diuresis; developed small-bowel obstruction while in-house 1.PSBO - tolerating advancement of diet - follow clinically 2.Acute on chronic R-sided HF - events noted; doing well off Lasix drip - continue torsemide as ordered - outpatient follow-up 3.Chronic AF - acceptable rate control on current therapy - digoxin now every other day - Toprol added in favor of diltiazem - INR remains therapeutic despite Coumadin. 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 Quality Stroke Does the patient have a stroke diagnosis?: No VTE Prior VTE?: No VTE Risk Level:: Medical - moderate - high VTE Device Contraindication: Treatment Not Indicated VTE Drug Contraindication: N/A - Med Ordered
[2022-12-24 20:15] LABS: Glucose, Whole Blood 215 mg/dL (60-115)
[2022-12-24] MEDS: Melatonin 3 MG TABLET 6 MG PO (20:30)
[2022-12-24] MEDS: Pravastatin Sodium 80 MG TABLET PO (20:31)
[2022-12-25] VITALS (8 sets, daily range): BP systolic 104–132; BP diastolic 54–77; PULSE 56–76; RESP 13–20; TEMP 35.9–36.7; O2SAT 96–100; BMI 30.3; BMI 30.4
[2022-12-25] MEDS: Omeprazole 20 MG CAPSULE.DR PO (05:28)
[2022-12-25 07:19] LABS: MANUAL DIFF FLAG NO
[2022-12-25 07:29] LABS: Basophils Percent Auto 0.3 % (0-2); Eosinophils Absolute Auto 0.3 X10*3/uL (0.0-0.4); Eosinophils Percent Auto 4.3 % (0-4); Hematocrit 30.8 % (42.0-52.0); Hemoglobin 9.3 g/dl (14.0-18.0); Imm Gran Abs Auto 0.02 X10*3/uL (0.00-0.03); Imm Gran Pct Auto 0.3 % (0.0-0.4); Lymphocytes Absolute Auto 1.1 X10*3/uL (1.2-4.9); Lymphocytes Percent Auto 16.4 % (20-40); Mean Corpuscular HGB Conc 30.2 g/dl (31.0-36.0); Mean Corpuscular Hemoglobin 30.2 pg (27.0-33.0); Mean Platelet Volume 9.8 fL (9.4-12.4); Monocytes Absolute Auto 0.6 X10*3/uL (0.1-1.2); Monocytes Percent Auto 9.4 % (2-11); Neutrophils Absolute Auto 4.7 x10*3/uL (2.0-8.3); Neutrophils Percent Auto 69.3 % (45-73); Platelet Count 270 X10*3/uL (160-400); Red Blood Count 3.08 X10*6/uL (4.60-5.80); Red Cell Distribution Width 17.1 % (11.0-16.0); White Blood Count 6.8 X10*3/uL (4.8-10.8)
[2022-12-25 07:30] LABS: Glucose, Whole Blood 118 mg/dL (60-115)
[2022-12-25 07:32] LABS: INTERNATIONAL NORM RATIO 2.2 (0.9-1.1); Prothrombin Time 26.5 SEC (11.1-13.3)
[2022-12-25] MEDS: Fluticasone/Vilanterol 200/25 BLST.W.DEV 1 PUFF INHALE (07:43)
[2022-12-25 08:23] LABS: Alanine Aminotransferase 12 U/L (0-40); Albumin Level 3.3 g/dL (3.5-5.0); Alkaline Phosphatase 41 U/L (39-117); Anion Gap 15 (12-20); Aspartate Amino Transferase 21 U/L (5-37); Bilirubin Total 0.4 mg/dL (0.0-1.0); Blood Urea Nitrogen 20 mg/dL (9-16); Calcium 8.7 mg/dL (8.4-10.2); Carbon Dioxide 27 mmol/L (22-29); Chloride 98 mmol/L (96-108); Creatinine Clr Calc Pharmacy 53.8; Estimated Glomerular Filt Rate 57; Glucose Fasting 106 mg/dL (60-99); Potassium 3.3 mmol/L (3.3-5.1); Sodium 137 mmol/L (135-145); Total Protein 6.1 g/dL (6.5-8.0)
[2022-12-25] MEDS: Ascorbic Acid 500 MG TABLET PO (08:47)
[2022-12-25] MEDS: Metoprolol Succinate ER 25 MG TAB.ER.24H PO (08:47)
[2022-12-25] MEDS: Cyanocobalamin (Vitamin B-12) 1,000 MCG TABLET 1000 MCG PO (08:47)
[2022-12-25] MEDS: Ferrous Sulfate 324 MG TABLET.DR PO (08:47)
[2022-12-25] MEDS: 0.9 % Sodium Chloride Flush 3 ML SYRINGE IVFLUSH ×2 (08:47→21:13)
[2022-12-25] MEDS: Ezetimibe 10 MG TABLET PO (08:47)
[2022-12-25 11:29] LABS: Glucose, Whole Blood 207 mg/dL (60-115)
[2022-12-25] MEDS: Insulin Lispro 100 UNIT/ML 3 ML VIAL SUBCUT ×2 (12:13→21:01)
--- NOTE | 2022-12-25 14:17 | P.PNIM_ITS ---
Subjective Subjective Date of Service: 12/25/22 Interval History: did well with advancing liquid diet; some mild nausea and distention after regular diet at lunch. Review of Systems Denies chest pain Admits nausea; Deniesvomiting diarrhea Denies fever chills Denies shortness of breath Physical Exam Vital Signs: Vital Signs: Last Vital Signs Temp 98.0 F 12/25/22 10:54 Pulse 76 12/25/22 10:54 Resp 20 12/25/22 10:54 BP 119/57 L 12/25/22 10:54 Pulse Ox 98 12/25/22 10:54 O2 Del Method Nasal Cannula 12/25/22 10:54 O2 Flow Rate 2 12/25/22 10:54 BMI result Body Mass Index 30.3 Const: Other: awake alert no acute distress HEENT: Other: NG tube in place Resp: Other: clear but diminished no rales rhonchi or wheez Cardio: Other: no S4; positive S1-S2; no S3 murmurs rubs or gallops GI: Other: soft nontender quiet bowel sounds Extrem: Other: no edema bilaterally Objective Data Active Medications Acetaminophen (Acetaminophen 325 Mg Tablet) 650 mg PO Q6H PRN PRN Reason: Pain, Mild (Pain Scale 1-3) Albuterol Sulfate (Albuterol Sulfate 90 Mcg 8 Gm Inhaler) 1 puff INHALE QID PRN PRN Reason: shortness of breath or wheezing Ascorbic Acid (Ascorbic Acid 500 Mg Tablet) 500 mg PO DAILY [facility] Last Admin: 12/25/22 08:47 Dose: 500 mg Documented By: MOON Cyanocobalamin (Cyanocobalamin (Vitamin B-12) 1,000 Mcg Tablet) 1,000 mcg PO DAILY [facility] Last Admin: 12/25/22 08:47 Dose: 1,000 mcg Documented By: MOON Dextrose (Dextrose 50 % 25 Gm/50 Ml Syringe) 25 gm IVPUSH Q15M PRN; Protocol PRN Reason: per Hypoglycemia Standing Ord. Digoxin (Digoxin 0.125 Mg Tablet) 0.125 mg PO Q2D [facility] Last Admin: 12/23/22 20:13 Dose: 0.125 mg Documented By: TREVA Ezetimibe (Ezetimibe 10 Mg Tablet) 10 mg PO DAILY [facility] Last Admin: 12/25/22 08:47 Dose: 10 mg Documented By: MOON Ferrous Sulfate (Ferrous Sulfate 324 Mg Tablet.) 324 mg PO DAILY [facility] Last Admin: 12/25/22 08:47 Dose: 324 mg Documented By: MOON Fluticasone/Vilanterol (Fluticasone/Vilanterol 200/25 Blst.W.Dev) 1 puff INHALE RDAILY [facility] Last Admin: 12/25/22 07:43 Dose: 1 puff Documented By: CHAYO Glucose (Glucose Gel 15 Gm Gel..Gram.) 15 gm PO Q15M PRN; Protocol PRN Reason: per Hypoglycemia Standing Ord. Insulin Human Lispro (Insulin Lispro 100 Unit/Ml 3 Ml Vial) 0 unit SUBCUT QIDACHS [facility]; Protocol Last Admin: 12/25/22 12:13 Dose: 7 unit Documented By: MOON Melatonin (Melatonin 3 Mg Tablet) 6 mg PO BEDTIME PRN PRN Reason: Insomnia Last Admin: 12/24/22 20:30 Dose: 6 mg Documented By: TREVA Metoprolol Succinate (Metoprolol Succinate Er 25 Mg Tab.Er.24h) 25 mg PO DAILY [facility]; Protocol Last Admin: 12/25/22 08:47 Dose: 25 mg Documented By: MOON Omeprazole (Omeprazole 20 Mg Capsule.) 20 mg PO DAILY@0630 [facility] Last Admin: 12/25/22 05:28 Dose: 20 mg Documented By: TREVA Ondansetron HCl (Ondansetron Hcl 4 Mg/2 Ml Vial) 4 mg IVPUSH Q8H PRN PRN Reason: Nausea and Vomiting Last Admin: 12/20/22 21:20 Dose: 4 mg Documented By: ROBI Pharmacy Consult (Consult Rx Perform Med Rec) 1 each MISCELLANE ONCE PRN PRN Reason: Consult order Pravastatin Sodium (Pravastatin Sodium 80 Mg Tablet) 80 mg PO BEDTIME [facility] Last Admin: 12/24/22 20:31 Dose: 80 mg Documented By: TREVA Sodium Chloride (0.9 % Sodium Chloride Flush 3 Ml Syringe) 3 ml IVFLUSH QSHIFT [facility] Last Admin: 12/25/22 08:47 Dose: 3 ml Documented By: MOON Tiotropium Follett (Tiotropium Follett 2.5 Mcg Inhaler) 2 puff INHALE RDAILY [facility] Last Admin: 12/25/22 07:43 Dose: 2 puff Documented By: CHAYO Labs 12/25/22 06:31 12/25/22 06:31 Labs: Laboratory Results - last 24 hr 12/19/22 12/24/22 12/24/22 05:25 15:17 20:12 MCV MCH MCHC RDW Plt Count MPV Immature Gran % (Auto) Neut % (Auto) Lymph % (Auto) [place] % (Auto) Eos % (Auto) Baso % (Auto) Lymph # (Auto) [place] # (Auto) Eos # (Auto) Baso # (Auto) Abs Immat Gran (auto) Absolute Neuts (auto) Absolute Nucleated RBC Nucleated RBC % (auto) Haptoglobin 216 H PT INR Anion Gap Estim Creat Clear Calc Estimated GFR POC Glucose 83 215 H Fasting Glucose Calcium Total Bilirubin AST ALT Alkaline Phosphatase Total Protein Albumin 12/25/22 12/25/22 12/25/22 06:31 06:31 06:31 MCV 100.0 H MCH 30.2 MCHC 30.2 L RDW 17.1 H Plt Count 270 MPV 9.8 Immature Gran % (Auto) 0.3 Neut % (Auto) 69.3 Lymph % (Auto) 16.4 L [place] % (Auto) 9.4 Eos % (Auto) 4.3 H Baso % (Auto) 0.3 Lymph # (Auto) 1.1 L [place] # (Auto) 0.6 Eos # (Auto) 0.3 Baso # (Auto) 0.0 Abs Immat Gran (auto) 0.02 Absolute Neuts (auto) 4.7 Absolute Nucleated RBC 0.000 Nucleated RBC % (auto) 0.0 Haptoglobin PT 26.5 H D INR 2.2 H Anion Gap 15 Estim Creat Clear Calc 53.8 Estimated GFR 57 POC Glucose Fasting Glucose 106 H Calcium 8.7 Total Bilirubin 0.4 AST 21 ALT 12 Alkaline Phosphatase 41 Total Protein 6.1 L Albumin 3.3 L 12/25/22 12/25/22 07:24 11:02 MCV MCH MCHC RDW Plt Count MPV Immature Gran % (Auto) Neut % (Auto) Lymph % (Auto) [place] % (Auto) Eos % (Auto) Baso % (Auto) Lymph # (Auto) [place] # (Auto) Eos # (Auto) Baso # (Auto) Abs Immat Gran (auto) Absolute Neuts (auto) Absolute Nucleated RBC Nucleated RBC % (auto) Haptoglobin PT INR Anion Gap Estim Creat Clear Calc Estimated GFR POC Glucose 118 H 207 H Fasting Glucose Calcium Total Bilirubin AST ALT Alkaline Phosphatase Total Protein Albumin Assessment and Plan (1) Partial small bowel obstruction: Status: Acute Plan 72yo M with chronic AF on warfarin, chronic HFpEF, HTN, venous stasis, HLD, DM2, chronic hypoxia due to COPD sent in by slice plug cutter operator Dr Bird due to CHF exacerbation resistant to oral diuresis; developed small-bowel obstruction while in-house 1.PSBO - tolerating advancement of diet... with the except to mild nausea and bloating after regular diet at lunch - continue to observe overnight - follow clinically 2.Acute on chronic R-sided HF - events noted; doing well off Lasix drip - continue torsemide as ordered - outpatient follow-up 3.Chronic AF - acceptable rate control on current therapy - digoxin now every other day - Toprol added in favor of diltiazem - INR remains therapeutic despite no Coumadin. 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 Quality Stroke Does the patient have a stroke diagnosis?: No VTE Prior VTE?: No VTE Risk Level:: Medical - moderate - high VTE Device Contraindication: Treatment Not Indicated VTE Drug Contraindication: N/A - Med Ordered
--- NOTE | 2022-12-25 14:20 | PM.PNGS ---
Subjective Subjective Date of Service: 12/25/22 Interval history: Says he has good oral intake Denies nausea or vomiting Passing good flatus Physical Exam Vital Signs: Vital Signs: Last Vital Signs Temp 98.0 F 12/25/22 10:54 Pulse 76 12/25/22 10:54 Resp 20 12/25/22 10:54 BP 119/57 L 12/25/22 10:54 Pulse Ox 98 12/25/22 10:54 O2 Del Method Nasal Cannula 12/25/22 10:54 O2 Flow Rate 2 12/25/22 10:54 BMI result Body Mass Index 30.3 Const: General: comfortable and no acute distress Resp: Effort & Inspection: normal respiratory effort Cardio: Rhythm: abnormal rhythm GI: Palpation (GI): Soft to palpation, not firm, nontender and no guarding Objective Data Active Medications Acetaminophen (Acetaminophen 325 Mg Tablet) 650 mg PO Q6H PRN PRN Reason: Pain, Mild (Pain Scale 1-3) Albuterol Sulfate (Albuterol Sulfate 90 Mcg 8 Gm Inhaler) 1 puff INHALE QID PRN PRN Reason: shortness of breath or wheezing Ascorbic Acid (Ascorbic Acid 500 Mg Tablet) 500 mg PO DAILY [facility] Last Admin: 12/25/22 08:47 Dose: 500 mg Documented By: MOON Cyanocobalamin (Cyanocobalamin (Vitamin B-12) 1,000 Mcg Tablet) 1,000 mcg PO DAILY [facility] Last Admin: 12/25/22 08:47 Dose: 1,000 mcg Documented By: MOON Dextrose (Dextrose 50 % 25 Gm/50 Ml Syringe) 25 gm IVPUSH Q15M PRN; Protocol PRN Reason: per Hypoglycemia Standing Ord. Digoxin (Digoxin 0.125 Mg Tablet) 0.125 mg PO Q2D [facility] Last Admin: 12/23/22 20:13 Dose: 0.125 mg Documented By: TREVA Ezetimibe (Ezetimibe 10 Mg Tablet) 10 mg PO DAILY [facility] Last Admin: 12/25/22 08:47 Dose: 10 mg Documented By: MOON Ferrous Sulfate (Ferrous Sulfate 324 Mg Tablet.) 324 mg PO DAILY [facility] Last Admin: 12/25/22 08:47 Dose: 324 mg Documented By: MOON Fluticasone/Vilanterol (Fluticasone/Vilanterol 200/25 Blst.W.Dev) 1 puff INHALE RDAILY [facility] Last Admin: 12/25/22 07:43 Dose: 1 puff Documented By: CHAYO Glucose (Glucose Gel 15 Gm Gel..Gram.) 15 gm PO Q15M PRN; Protocol PRN Reason: per Hypoglycemia Standing Ord. Insulin Human Lispro (Insulin Lispro 100 Unit/Ml 3 Ml Vial) 0 unit SUBCUT QIDACHS [facility]; Protocol Last Admin: 12/25/22 12:13 Dose: 7 unit Documented By: MOON Melatonin (Melatonin 3 Mg Tablet) 6 mg PO BEDTIME PRN PRN Reason: Insomnia Last Admin: 12/24/22 20:30 Dose: 6 mg Documented By: TREVA Metoprolol Succinate (Metoprolol Succinate Er 25 Mg Tab.Er.24h) 25 mg PO DAILY [facility]; Protocol Last Admin: 12/25/22 08:47 Dose: 25 mg Documented By: MOON Omeprazole (Omeprazole 20 Mg Capsule.Dr) 20 mg PO DAILY@0630 [facility] Last Admin: 12/25/22 05:28 Dose: 20 mg Documented By: TREVA Ondansetron HCl (Ondansetron Hcl 4 Mg/2 Ml Vial) 4 mg IVPUSH Q8H PRN PRN Reason: Nausea and Vomiting Last Admin: 12/20/22 21:20 Dose: 4 mg Documented By: ROBI Pharmacy Consult (Consult Rx Perform Med Rec) 1 each MISCELLANE ONCE PRN PRN Reason: Consult order Pravastatin Sodium (Pravastatin Sodium 80 Mg Tablet) 80 mg PO BEDTIME [facility] Last Admin: 12/24/22 20:31 Dose: 80 mg Documented By: TREVA Sodium Chloride (0.9 % Sodium Chloride Flush 3 Ml Syringe) [facility] Last Admin: 12/25/22 08:47 Dose: 3 ml Documented By: MOON Tiotropium Jensen (Tiotropium Jensen 2.5 Mcg Inhaler) 2 puff INHALE RDAILY [facility] Last Admin: 12/25/22 07:43 Dose: 2 puff Documented By: CHAYO Labs 12/25/22 06:31 12/25/22 06:31 Labs: Laboratory Results - last 24 hr 12/19/22 12/24/22 12/24/22 05:25 15:17 20:12 MCV MCH MCHC RDW Plt Count MPV Immature Gran % (Auto) Neut % (Auto) Lymph % (Auto) [place] % (Auto) Eos % (Auto) Baso % (Auto) Lymph # (Auto) [place] # (Auto) Eos # (Auto) Baso # (Auto) Abs Immat Gran (auto) Absolute Neuts (auto) Absolute Nucleated RBC Nucleated RBC % (auto) Haptoglobin 216 H PT INR Anion Gap Estim Creat Clear Calc Estimated GFR POC Glucose 83 215 H Fasting Glucose Calcium Total Bilirubin AST ALT Alkaline Phosphatase Total Protein Albumin 12/25/22 12/25/22 12/25/22 06:31 06:31 06:31 MCV 100.0 H MCH 30.2 MCHC 30.2 L RDW 17.1 H Plt Count 270 MPV 9.8 Immature Gran % (Auto) 0.3 Neut % (Auto) 69.3 Lymph % (Auto) 16.4 L [place] % (Auto) 9.4 Eos % (Auto) 4.3 H Baso % (Auto) 0.3 Lymph # (Auto) 1.1 L [place] # (Auto) 0.6 Eos # (Auto) 0.3 Baso # (Auto) 0.0 Abs Immat Gran (auto) 0.02 Absolute Neuts (auto) 4.7 Absolute Nucleated RBC 0.000 Nucleated RBC % (auto) 0.0 Haptoglobin PT 26.5 H D INR 2.2 H Anion Gap 15 Estim Creat Clear Calc 53.8 Estimated GFR 57 POC Glucose Fasting Glucose 106 H Calcium 8.7 Total Bilirubin 0.4 AST 21 ALT 12 Alkaline Phosphatase 41 Total Protein 6.1 L Albumin 3.3 L 12/25/22 12/25/22 07:24 11:02 MCV MCH MCHC RDW Plt Count MPV Immature Gran % (Auto) Neut % (Auto) Lymph % (Auto) [place] % (Auto) Eos % (Auto) Baso % (Auto) Lymph # (Auto) [place] # (Auto) Eos # (Auto) Baso # (Auto) Abs Immat Gran (auto) Absolute Neuts (auto) Absolute Nucleated RBC Nucleated RBC % (auto) Haptoglobin PT INR Anion Gap Estim Creat Clear Calc Estimated GFR POC Glucose 118 H 207 H Fasting Glucose Calcium Total Bilirubin AST ALT Alkaline Phosphatase Total Protein Albumin Procedures Date of Service Date of Service: 12/25/22 Progress Note: A&P Assessment and plan (1) Partial small bowel obstruction: Status: Acute Assessment and Plan: Symptoms appear to have completely resolved Diet as tolerated Rest of management as per the hospitalist service Doing very well Time Spent With Patient Time: Total time managing care of this patient today ____ minutes. Quality Stroke Does the patient have a stroke diagnosis?: No VTE Prior VTE?: No VTE Risk Level:: Medical - moderate - high VTE Device Contraindication: Treatment Not Indicated VTE Drug Contraindication: N/A - Med Ordered
[2022-12-25 15:57] LABS: Glucose, Whole Blood 87 mg/dL (60-115)
[2022-12-25] MEDS: Albuterol Sulfate 90 MCG 8 GM INHALER 1 PUFF INHALE (19:34)
[2022-12-25 19:57] LABS: Glucose, Whole Blood 213 mg/dL (60-115)
[2022-12-25] MEDS: Pravastatin Sodium 80 MG TABLET PO (21:01)
[2022-12-25] MEDS: Digoxin 0.125 MG TABLET PO (21:13)
[2022-12-26 03:30] VITALS: BP 121/53; PULSE 67; RESP 16; TEMP 36.2; O2SAT 98
[2022-12-26] MEDS: Omeprazole 20 MG CAPSULE.DR PO (05:40)
[2022-12-26 06:00] VITALS: BMI 30.3
[2022-12-26 07:05] LABS: Glucose, Whole Blood 98 mg/dL (60-115)
[2022-12-26 07:16] VITALS: BP 110/53; PULSE 77; RESP 20; TEMP 36.8; O2SAT 97
[2022-12-26 07:57] VITALS: PULSE 76; RESP 20; O2SAT 95
[2022-12-26] MEDS: Fluticasone/Vilanterol 200/25 BLST.W.DEV 1 PUFF INHALE (07:57)
[2022-12-26] MEDS: Ascorbic Acid 500 MG TABLET PO (08:17)
[2022-12-26] MEDS: Ferrous Sulfate 324 MG TABLET.DR PO (08:17)
[2022-12-26] MEDS: Metoprolol Succinate ER 25 MG TAB.ER.24H PO (08:17)
[2022-12-26] MEDS: Ezetimibe 10 MG TABLET PO (08:17)
[2022-12-26] MEDS: Cyanocobalamin (Vitamin B-12) 1,000 MCG TABLET 1000 MCG PO (08:17)
[2022-12-26] MEDS: 0.9 % Sodium Chloride Flush 3 ML SYRINGE IVFLUSH (08:21)
--- NOTE | 2022-12-26 10:57 | MHC.CM.PN ---
Per ROUNDS discussion, Patient will be medically cleared for dc to home today, with services.A referral was made to [facility], who has been made aware of today's dc. CM met with Patient at bedside and addressed IMM with him (providing Patient with the original and placing a copy on the chart). Patient's Daughter is providing transportation to home.
[2022-12-26 10:59] LABS: Glucose, Whole Blood 209 mg/dL (60-115)
[2022-12-26 11:13] VITALS: BP 114/56; PULSE 53; RESP 20; TEMP 36.1; O2SAT 98
[2022-12-26] MEDS: Insulin Lispro 100 UNIT/ML 3 ML VIAL SUBCUT (11:39)
--- NOTE | 2022-12-26 12:28 | PM.DS ---
DS: Providers Provider Date of Service: 12/26/22 Date of admission: 12/15/22 19:03 Date of discharge: 12/26/22 Primary care physician: Grayson Berrios DO, MD Consults: 12/15/22 20:33 Consult to Cardiology Routine Consulting Provider: [facility] Cardiovascular Services Reason for consultation: CHF Has provider been notified: Yes 12/19/22 09:42 Consult to Gastroenterology Routine Consulting Provider: Hans Figueroa Reason for consultation: anemia on coumadin Has provider been notified: No 12/21/22 03:58 Consult to General Surgery Routine Consulting Provider: [facility] General Surgeons Reason for consultation: SBO DS: Diagnosis Discharge Diagnosis (1) Partial small bowel obstruction: Status: Acute DS: Summary Hospital Course Hospital Course: 72-year-old male with pertinent history of chronic atrial fibrillation on anticoagulation, essential hypertension, congestive heart failure with preserved ejection fraction, venous stasis, mixed hyperlipidemia, [id number] diabetes mellitus, chronic hypoxemic respiratory failure due to COPD who presents to the emergency department for evaluation of dyspnea.? Patient states he has been having dyspnea, worse with exertion for the last few weeks.? Also reports bilateral leg swelling without pain.? Admits orthopnea and PND.? Patient saw his administrative support associate today, Dr. Bird. He was sent by Cardiology for IV diuresis for decompensation of compensated heart failure and failure of p.o. diuretics.? He denies fever, chills, productive cough.? His recently had COVID-19 pneumonia recently.? No chest discomfort, palpitations, abdominal pain, changes in urinary or bowel habits. Hospital Course Admitted to telemetry and seen by by Cardiology who recommended a Lasix drip with good results. On the evening of 12/21/[address] reported patient had multiple episodes of vomiting. Subsequent KUB demonstrate a partial small-bowel obstruction for which surgery was consulted. Surgery recommended NG tube and this was added with good results. Patient continued to improve and on 12/23 NG tube was removed. Patient diet was advanced late 12/24 to clears and then 12/25 full liquids. He did have some nausea with full liquids 1 on the day of discharge he has tolerated 2 meals regular diet wishes to go home. At this point in time I believe he is medically stable for same Time Spent with Patient Time attestation: Total time managing care of this patient today ____ minutes. Discharge coordination time: Greater than 30 minutes Quality: Safe Use of Opioids Does Pt have an Active Cancer Diagnosis on the Problem List?: No Quality: Stroke Does the patient have a stroke diagnosis?: No Physical Exam Vital Signs: Vital Signs: Last Vital Signs Temp 96.9 F 12/26/22 11:13 Pulse 53 12/26/22 11:13 Resp 20 12/26/22 11:13 BP 114/56 L 12/26/22 11:13 Pulse Ox 98 12/26/22 11:13 O2 Del Method Nasal Cannula 12/26/22 11:13 O2 Flow Rate 2 12/26/22 11:13 BMI result Body Mass Index 30.3 Const: Other: awake alert no acute distress HEENT: Other: NG tube in place Resp: Other: clear but diminished no rales rhonchi or wheez Cardio: Other: no S4; positive S1-S2; no S3 murmurs rubs or gallops GI: Other: soft nontender quiet bowel sounds Extrem: Other: no edema bilaterally DS: Data Data Completed and Pending Labs on day of discharge: Laboratory Results - last 24 hr 12/25/22 12/25/22 12/26/22 15:28 19:49 07:01 POC Glucose 87 213 H 98 12/26/22 10:55 POC Glucose 209 H Discharge Plan Discharge Anticipated Discharge Date/Time: 12/26/22 12:15 Patient Disposition: Home Health Service Discharge Diagnosis: Partial small-bowel obstruction Referrals: Keysha CHUNG [Outside] - 1 Week Grayson Berrios DO, MD [Primary Care Provider] - 1 Week Discharge Medications: New torsemide 20 mg Tablet 40 mg PO BID Qty: 120 0RF Protocol: Hold for SBP< HOLD for SBP < : 90 Rx Instructions: Take torsemide 2 tablets ( 20 mg twice daily) Continued warfarin 5 mg Tablet 5 mg PO MOWEFR@1800 warfarin 5 mg Tablet 2.5 mg PO SUTUTHSA@1800 cyanocobalamin (vitamin B-12) 1,000 mcg Tablet 1,000 mcg PO DAILY pravastatin 80 mg tablet 80 mg PO BEDTIME budesonide-formoterol 160-4.5 mcg/actuation HFA aerosol inhaler 2 puff PO BID tiotropium bromide 18 mcg capsule, w/inhalation device 18 mcg PO DAILY ferrous sulfate 325 mg (65 mg iron) tablet 325 mg PO DAILY metformin 500 mg tablet 500 mg PO BIDWM ezetimibe 10 mg tablet 10 mg PO DAILY ascorbic acid (vitamin C) 500 mg tablet 500 mg PO DAILY alcohol swabs Pads, Medicated topical albuterol sulfate 90 mcg/actuation HFA aerosol inhaler 1 inh inhalation QID PRN (Reason: shortness of breath or wheezing) Changed digoxin 125 mcg (0.125 mg) tablet 125 mcg PO Q2D Qty: 30 0RF Discontinued diltiazem HCl 180 mg capsule,extended release 24 hr 180 mg PO DAILY 90 Days Qty: 90 3RF doxycycline hyclate 100 mg capsule 100 mg PO BID torsemide 20 mg tablet 40 mg PO DAILY Discharge Orders: Discharge Order (Routine); Ordered 12/26/22 Ordered By: David Ulrich Diet: Advance to usual diet Activity on Discharge: As tolerated Stand Alone Forms: Patient Portal Discharge page Care Plan Goals: Erosive on has been increased to 40 mg twice daily; digoxin is now every other day Health Concerns: Follow-up with PCP in 2 weeks Plan of Treatment: Follow-up with cardiology as scheduled Assessment: See discharge summary
--- NOTE | 2022-12-28 16:51 | P.CDIM_ITS ---
PROVIDER RESPONSE TEXT: To clarify, the appropriate diagnosis supported by the clinical indicators: Diabetes mellitus Type 2 with hyperglycemia QUERY TEXT: PHYSICIAN'S DOCUMENTATION REQUEST Date of Query: 12/23/2022 12:14 PM EDT Patient Name: Kiran Law Admit Date: 12/15/2022 Dear David Ulrich, A review of the medical record indicates additional documentation may be needed. Please review below and update the documentation accordingly. Clinical Indicators: LABS: POC glucose 370 H Insulin DM2 - increase correction Diabetic diet Please clarify the following regarding the Complications of Diabetes Mellitus (DM): Diabetes mellitus Type 2 with hyperglycemia Other please specify Other (explain)Clinically unable to determine (explain)Thank you, Arlin Sofia, CCS, CDIS Use of terms such as suspected, likely, concern for, or probable (associated with a specific diagnosi s that is being evaluated, monitored, or treated as if it exists) are acceptable and can be coded in the inpatient se tting, when documented at the time of discharge. Please use your independent medical judgment in providing your response. THIS QUERY IS PART OF THE PERMANENT MEDICAL RECORD
== END 2022-12-26 14:26 | disposition home health service (06) | DRG 291 ==
LOC: HO.ED 18:44 → HO.EDOVER 19:10 → HO.IMC 23:29
PROVIDERS: Family Medicine; Hospitalist; Internal Medicine Gastroenterology; Physician Assistant Medical; Admitting Provider Student in an Organized Health Care Education/Training Program; Emergency Provider Student in an Organized Health Care Education/Training Program; PCP Internal Medicine; Visit Provider Hospitalist
DX: I13.0 Hypertensive heart and chronic kidney disease with heart failure and stage 1 through stage 4 chronic kidney disease, or unspecified chronic kidney disease (principal); I50.23 Acute on chronic systolic (congestive) heart failure; I48.20 Chronic atrial fibrillation, unspecified; J96.11 Chronic respiratory failure with hypoxia; K56.600 Partial intestinal obstruction, unspecified as to cause; E78.2 Mixed hyperlipidemia; N18.9 Chronic kidney disease, unspecified; E11.22 Type 2 diabetes mellitus with diabetic chronic kidney disease; I50.813 Acute on chronic right heart failure; I27.29 Other secondary pulmonary hypertension; I07.1 Rheumatic tricuspid insufficiency; D63.1 Anemia in chronic kidney disease; J44.9 Chronic obstructive pulmonary disease, unspecified; D53.9 Nutritional anemia, unspecified; E11.65 Type 2 diabetes mellitus with hyperglycemia; Z20.822 Contact with and (suspected) exposure to COVID-19; Z99.81 Dependence on supplemental oxygen; Z79.01 Long term (current) 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; Z79.84 Long term (current) use of oral hypoglycemic drugs; Z79.899 Other long term (current) drug therapy
CPT/HCPCS: 0241U; 36415; 71045; 71046; 71260; 74018; 74176; 80048; 80053; 80076; 80162; 81001; 82607; 82728; 82746; 82803; 82947; 83010; 83540; 83605; 83615; 83735; 83880; 84156; 84484; 85025; 85027; 85045; 85610; 87040; 87635; 92950; 93005; 93306; 94640; 97116; 97162; 99212; 99285; J1940; J2405; J2543; J2930; Q9957; Q9967

== ENCOUNTER 2022-12-15 19:03 | Outpatient (BNV) | payer MEDICARE, SELFPAY | END 2022-12-16 07:00 | PROVIDERS: Admitting Provider Student in an Organized Health Care Education/Training Program; Emergency Provider Student in an Organized Health Care Education/Training Program; PCP Internal Medicine; Visit Provider Internal Medicine Cardiovascular Disease | DX: I36.1 Nonrheumatic tricuspid (valve) insufficiency (principal) | CPT/HCPCS: 93306 ==

== ENCOUNTER → 2022-12-15 19:03 | Outpatient (BNV) | payer MEDICARE, SELFPAY | PROVIDERS: Admitting Provider Student in an Organized Health Care Education/Training Program; Emergency Provider Student in an Organized Health Care Education/Training Program; PCP Internal Medicine; Visit Provider Internal Medicine Gastroenterology | DX: D64.9 Anemia, unspecified (principal); Z79.01 Long term (current) 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 | CPT/HCPCS: 99499 ==

== ENCOUNTER → 2022-12-15 19:03 | Outpatient (BNV) | payer MEDICARE, SELFPAY | PROVIDERS: Admitting Provider Student in an Organized Health Care Education/Training Program; Emergency Provider Student in an Organized Health Care Education/Training Program; PCP Internal Medicine; Visit Provider Student in an Organized Health Care Education/Training Program | DX: K56.600 Partial intestinal obstruction, unspecified as to cause (principal) | CPT/HCPCS: 99222; 99232; 99233; 99239 ==

== ENCOUNTER → 2022-12-15 19:03 | Outpatient (BNV) | payer MEDICARE, SELFPAY | PROVIDERS: Admitting Provider Student in an Organized Health Care Education/Training Program; Emergency Provider Student in an Organized Health Care Education/Training Program; PCP Internal Medicine; Visit Provider Internal Medicine Cardiovascular Disease | DX: I50.9 Heart failure, unspecified (principal); I48.20 Chronic atrial fibrillation, unspecified; N18.9 Chronic kidney disease, unspecified | CPT/HCPCS: 99232; 99233 ==

== ENCOUNTER → 2022-12-15 19:03 | Outpatient (BNV) | payer MEDICARE, SELFPAY | PROVIDERS: Admitting Provider Student in an Organized Health Care Education/Training Program; Emergency Provider Student in an Organized Health Care Education/Training Program; PCP Internal Medicine; Visit Provider Surgery | DX: K56.600 Partial intestinal obstruction, unspecified as to cause (principal) | CPT/HCPCS: 99231; 99232 ==

== ENCOUNTER → 2022-12-31 12:52 | Outpatient (BNVA) | payer MEDICARE, SELFPAY | PROVIDERS: PCP Internal Medicine; Visit Provider Internal Medicine ==

== ENCOUNTER → 2023-01-02 14:39 | Outpatient (BNVA) | payer MEDICARE, SELFPAY | PROVIDERS: PCP Internal Medicine; Visit Provider Internal Medicine ==

== ENCOUNTER → 2023-01-05 13:41 | Outpatient (BNVA) | payer MEDICARE, SELFPAY | PROVIDERS: PCP Internal Medicine; Visit Provider Internal Medicine ==

== ENCOUNTER → 2023-01-09 11:49 | Outpatient (BNVA) | payer MEDICARE, SELFPAY | PROVIDERS: PCP Internal Medicine; Visit Provider Internal Medicine ==

== ENCOUNTER → 2023-01-16 15:34 | Outpatient (BNVA) | payer MEDICARE, SELFPAY | PROVIDERS: PCP Internal Medicine; Visit Provider Internal Medicine ==

== ENCOUNTER → 2023-01-23 10:39 | Outpatient (BNVA) | payer MEDICARE, SELFPAY | PROVIDERS: PCP Internal Medicine; Visit Provider Internal Medicine ==

== ENCOUNTER 2023-01-26 15:03 | Outpatient (AMB) | payer MEDICARE, SELFPAY ==
--- NOTE | 2023-01-26 15:08 | MHC.OFFVIS ---
Intake Vital Signs 01/26/23 15:09 Height 5 ft 6 in Weight 198 lb 6.656 oz BMI 32.0 BP 120/62 Blood Pressure Location Lt brachial Position Sitting Pulse 76 Intake Visit Reasons: Ed follow up [facility] Intake Note: ed f/up [facility] Cooling System Operator Required: No Appliance Installer: Appliance Installer Present Accompanied by: Allergies No Known Allergies Allergy (Verified 01/26/23 15:18) Medication List - Last Reconciled 01/26/23 by TARSHA Dawson albuterol sulfate 90 mcg/actuation 1 inh inhalation QID PRN alcohol swabs pad topical ascorbic acid (vitamin C) 500 mg PO DAILY budesonide-formoterol 160-4.5 mcg/actuation 2 puffs PO BID cyanocobalamin (vitamin B-12) 1,000 mcg PO DAILY digoxin 125 mcg PO Q2D ezetimibe 10 mg PO DAILY ferrous sulfate 325 mg PO DAILY metformin 500 mg PO BIDWM pravastatin 80 mg PO BEDTIME tiotropium bromide 18 mcg PO DAILY torsemide 40 mg See Protocol PO BID warfarin 2.5 mg See Protocol PO SUTUTHSA@1800 warfarin 5 mg See Protocol PO MOWEFR@1800 HPI Ed follow up [facility] HPI Details Deny is a 72-year-old male past medical history of hypertension, hyperlipidemia, diabetes, chronic kidney disease, chronic atrial fibrillation, heart failure with preserved EF who was recently admitted to [facility] for decompensated heart failure. He was diuresed with IV diuretics and sent home with torsemide 40 mg b.i.d.. Today he presents for follow-up. Today he reports that since his hospital discharge he was able to get portable O2 set up and now wears his oxygen continually. Prior to that he only had a tank at home that he could use as needed. His breathing is mildly labored with physical activities. He sleeps in a recliner which is his norm. He feels that his breathing was better when he was discharged from the hospital. He also tells me that his swelling is coming back. His lower legs are swollen to below the knee. He tells me his swelling was all the way up to his thighs when he got admitted. He does not believe he has gained weight. No chest discomfort at rest or with activity. No palpitations, presyncope, syncope, PND. He has visiting nurse at home. He has the med list from the [facility] which states torsemide 20 mg 2 tablets daily. is present. [facility] Medical History Anemia Biatrial enlargement CHF (congestive heart failure) Chronic a-fib Chronic heart failure with preserved ejection fraction (HFpEF) CKD (chronic kidney disease) Current use of anticoagulant therapy Diabetes mellitus HLD (hyperlipidemia) HTN (hypertension) Partial small bowel obstruction Pulmonary hypertension Surgical History History of nephrectomy Hx of hernia repair Family History Father Cancer Mother No problems noted. Social History Household Members: Spouse Housing: House Do you presently have visiting nurse or other home services: No Patient Tobacco Use Status: Former Tobacco user Second Hand Smoke Exposure: No service: No Review of Systems Const All systems reviewed & are unremarkable except as noted in HPI and below ENT Denies dizziness Card Denies chest pain, Denies chest pain at rest, Denies chest pain with activity, Denies rapid heart rate, Denies pedal edema, Denies edema, Reports leg edema (Lower legs), Denies lightheadedness, Denies palpitations, Reports dyspnea, Reports dyspnea on exertion and Denies orthopnea Resp Denies cough, Reports dyspnea and Reports dyspnea on exertion GI Denies hematochezia and Denies change in stool character Musc Denies abnormal gait, Denies limited range of motion, Denies muscle cramps, Denies muscle weakness, Denies numbness, Denies radiating pain into limb, Denies stiffness and Denies tingling Neuro Denies abnormal gait, Denies dizziness, Denies numbness and Denies tingling Endo Denies palpitations Physical Exam Vital Signs: Last Vital Signs Pulse 76 01/26/23 15:09 BP 120/62 01/26/23 15:09 BMI result Body Mass Index 32.0 Const Other: Wearing oxygen with nasal cannula General: cooperative, comfortable and no acute distress Orientation/consciousness: patient oriented x3 Neck Neck: Yes normal visual inspection Resp Effort & Inspection: normal respiratory effort Auscultation: clear to auscultation bilaterally, crackles (Fine rales noted in right lower lobe), no rhonchi and no wheezes Cardio Jugular venous distension: no JVD Rate: regular rate Rhythm: abnormal rhythm Heart sounds: S1 normal heart sound present, S2 normal heart sound present, no gallops, no murmurs and no rubs Neuro General: patient oriented x3 Extrem Other: Pitting edema of lower extremities from feet to below-knee Psych Appearance: grossly normal Mental Status: mental status grossly normal Speech and movement: Normal speech and movement present Office Procedures EKG Details: Today, read by me, atrial fibrillation, 1 PVC, nonspecific ST abnormality, rate 76, QTC 452 milliseconds [id number], Complete Assessment & Plan Assessment & Plan (1) Decompensated heart failure: Code(s): I50.9 - Heart failure, unspecified Plan: Recent [facility] [place] [place] admission for decompensated heart failure. Diuresed and sent home with torsemide 40 mg b.i.d.. Echocardiogram done 12/16/2022 showing EF 65-70%, no regional wall motion abnormalities, moderate to severe pulmonary hypertension. Today he reports some increase in breathing difficulty since his hospital discharge. He also has recurrent lower leg edema to below the knee. According to our records it appears he has gained about 10 lb since his hospital discharge. In reviewing his [facility] med sheet it appears he is on torsemide 20 mg 2 tablets daily. This is half the dose of what he was prescribed. Will have him increase torsemide up to 40 mg b.i.d.. Instructed to take 60 mg tomorrow a.m. only. Labs done 12/25/2022 showed potassium 3.3, creatinine 1.25. Increased potassium foods. Plan recheck of labs in 1 week. Cardiology follow-up 2 weeks. Signs and symptoms of heart failure reviewed with him. Emergency care if needed for worsening of symptoms. (2) Chronic a-fib: Code(s): I48.20 - Chronic atrial fibrillation, unspecified Plan: History of chronic atrial fibrillation. Rate seems controlled with use of digoxin 0.25 mg every other day. No reports of heart palpitations. He is on Coumadin for anticoagulation. INR goal 2-3. No reports of bleeding. Continue current meds without change (3) Pulmonary hypertension: Code(s): I27.20 - Pulmonary hypertension, unspecified Plan: Moderate to severe pulmonary hypertension on recent echo. Increasing diuretic as above (4) Venous insufficiency of both lower extremities: Code(s): I87.2 - Venous insufficiency (chronic) (peripheral) Plan: Likely contributes to his swelling in his lower extremities. Also has signs indicating increasing heart failure. Diuretics being increased Orders: Orders Basic Metabolic Panel 1 Week I50.9 - Heart failure, unspecified B Type Natriuretic Peptide 1 Week I50.9 - Heart failure, unspecified Medications: Discontinued pravastatin 80 mg PO DAILY 90 tabs 3RF E78.5 - Hyperlipidemia, unspecified digoxin 125 mcg PO DAILY 90 days 90 tabs 3RF Coding Level of Care Code Est Pt Level 4 (77614) Diagnoses Decompensated heart failure I50.9 Chronic a-fib I48.20 Pulmonary hypertension I27.20 Venous insufficiency of both lower extremities I87.2 CPT Codes EKG - CPT: 53259-[id number], Complete ([id number]) Time Spent (min) 26 Comment Chart review, documentation, interview, assessment
[2023-01-26 15:09] VITALS: BP 120/62; PULSE 76; BMI 32.0
== END 2023-01-26 15:54 | disposition home or self-care (01) ==
PROVIDERS: PCP Internal Medicine; Referring Provider Internal Medicine; Visit Provider Nurse Practitioner Family
DX: I50.9 Heart failure, unspecified (principal); I48.20 Chronic atrial fibrillation, unspecified; I27.20 Pulmonary hypertension, unspecified; I87.2 Venous insufficiency (chronic) (peripheral)
CPT/HCPCS: 93010; 99214

== ENCOUNTER → 2023-01-26 15:03 | Outpatient (BNVA) | payer MEDICARE, SELFPAY | PROVIDERS: PCP Internal Medicine; Referring Provider Internal Medicine; Visit Provider Nurse Practitioner Family | DX: I50.9 Heart failure, unspecified (principal); I48.20 Chronic atrial fibrillation, unspecified; I27.20 Pulmonary hypertension, unspecified; I87.2 Venous insufficiency (chronic) (peripheral); Z79.01 Long term (current) 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 | CPT/HCPCS: 93005; 99212 ==

== ENCOUNTER → 2023-01-30 11:07 | Outpatient (BNVA) | payer MEDICARE, SELFPAY | PROVIDERS: PCP Internal Medicine; Visit Provider Internal Medicine ==

== ENCOUNTER → 2023-02-06 12:06 | Outpatient (BNVA) | payer MEDICARE, SELFPAY | PROVIDERS: PCP Internal Medicine; Visit Provider Internal Medicine ==

== ENCOUNTER 2023-02-09 09:46 | Outpatient (REF) | payer MEDICARE, SELFPAY ==
[2023-02-09 10:47] LABS: B Type Natriuretic Peptide 64 pg/mL (<100)
[2023-02-09 11:06] LABS: Anion Gap 14 (12-20); Blood Urea Nitrogen 28 mg/dL (9-16); Calcium 9.5 mg/dL (8.4-10.2); Carbon Dioxide 37 mmol/L (22-29); Chloride 95 mmol/L (96-108); Estimated Glomerular Filt Rate 49; Glucose Random 188 mg/dL (60-115); Potassium 3.9 mmol/L (3.3-5.1); Sodium 142 mmol/L (135-145)
== END 2023-02-09 09:47 | disposition home or self-care (01) ==
LOC: HO.LAB 09:46
PROVIDERS: PCP Internal Medicine; Visit Provider Nurse Practitioner Family
DX: I50.9 Heart failure, unspecified (principal)
CPT/HCPCS: 36415; 80048; 83880

== ENCOUNTER → 2023-02-13 15:24 | Outpatient (BNVA) | payer MEDICARE, SELFPAY | PROVIDERS: PCP Internal Medicine; Visit Provider Internal Medicine ==

== ENCOUNTER 2023-02-16 09:43 | Outpatient (AMB) | payer MEDICARE, SELFPAY ==
--- NOTE | 2023-02-16 09:46 | A.OFFVIS_ITS ---
Intake Vital Signs 02/16/23 09:47 Height 5 ft 6 in Weight 202 lb 13.204 oz BMI 32.7 BP 120/72 Blood Pressure Location Lt brachial Position Sitting Pulse 81 Pulse Source Pulse Oximeter Intake Visit Reasons: 3 wk s/p labs Heart failure Intake Note: 3 week f/u Used Building Materials Yard Worker Required: No Allergies No Known Allergies Allergy (Verified 02/16/23 09:52) Medication List - Last Reconciled 02/16/23 by TARSHA Dawson albuterol sulfate 90 mcg/actuation 1 inh inhalation QID PRN alcohol swabs pad topical ascorbic acid (vitamin C) 500 mg PO DAILY budesonide-formoterol 160-4.5 mcg/actuation 2 puffs PO BID cyanocobalamin (vitamin B-12) 1,000 mcg PO DAILY digoxin 125 mcg PO Q2D doxycycline hyclate 100 mg PO DAILY ezetimibe 10 mg PO DAILY ferrous sulfate 325 mg PO DAILY metformin 500 mg PO BIDWM pravastatin 80 mg PO BEDTIME tiotropium bromide 18 mcg PO DAILY torsemide 40 mg See Protocol PO BID warfarin 2.5 mg See Protocol PO SUTUTHSA@1800 warfarin 5 mg See Protocol PO MOWEFR@1800 HPI 3 wk s/p labs Heart failure HPI Details Deny is a 72-year-old male past medical history of hypertension, hyperlipidemia, diabetes, chronic kidney disease, chronic atrial fibrillation, heart failure with preserved EF who was admitted to [facility] for decompensated heart failure In November. He was diuresed with IV diuretics and sent home with torsemide 40 mg b.i.d. On follow up he had recurrent leg edema and weight gain. It was determined that he was taking Torsemide only once daily. His dose was increased. Today he presents for follow-up. Today he reports he has been doing a little better since his last visit. He is happy this a his leg edema has improved. They are still swollen but not like prior. His breathing is short with physical activity. He says this is overall unchanged. He wears his oxygen continually with nasal cannula. He sleeps in a recliner which is his norm. He has no chest discomfort, palpitations, presyncope, syncope, falls. Taking meds as directed. Mostly sedentary. He describes that he does use the incentive spirometer at times. Has visiting nurse services. is present. [facility] [place] [place] Medical History Partial small bowel obstruction Anemia CHF (congestive heart failure) Diabetes mellitus CKD (chronic kidney disease) HTN (hypertension) Biatrial enlargement Pulmonary hypertension Chronic heart failure with preserved ejection fraction (HFpEF) HLD (hyperlipidemia) Chronic a-fib Current use of anticoagulant therapy Surgical History History of nephrectomy Hx of hernia repair Family History Father Cancer Mother No problems noted. Social History Household Members: Spouse Housing: House Do you presently have visiting nurse or other home services: No Patient Tobacco Use Status: Former Tobacco user Second Hand Smoke Exposure: No service: No Review of Systems Const All systems reviewed & are unremarkable except as noted in HPI and below ENT Denies dizziness Card Denies chest pain, Denies chest pain at rest, Denies chest pain with activity, Denies rapid heart rate, Denies pedal edema, Denies edema, Reports leg edema, Denies lightheadedness, Denies palpitations, Denies dyspnea, Reports dyspnea on exertion and Denies orthopnea Resp Denies cough, Denies dyspnea and Reports dyspnea on exertion GI Denies hematochezia and Denies change in stool character Musc Denies abnormal gait, Denies limited range of motion, Denies muscle cramps, Denies muscle weakness, Denies numbness, Denies radiating pain into limb, Denies stiffness and Denies tingling Neuro Denies abnormal gait, Denies dizziness, Denies numbness and Denies tingling Endo Denies palpitations Physical Exam Vital Signs: Last Vital Signs Pulse 81 02/16/23 09:47 BP 120/72 02/16/23 09:47 BMI result Body Mass Index 32.7 Const Other: Wearing oxygen with nasal cannula General: cooperative, comfortable and no acute distress Orientation/consciousness: patient oriented x3 Neck Neck: Yes normal visual inspection Resp Effort & Inspection: normal respiratory effort Auscultation: clear to auscultation bilaterally, crackles (Fine rales noted in right lower lobe), no rhonchi and no wheezes Cardio Jugular venous distension: no JVD Rate: regular rate Rhythm: abnormal rhythm Heart sounds: S1 normal heart sound present, S2 normal heart sound present, no gallops, no murmurs and no rubs Neuro General: patient oriented x3 Extrem Other: Less lower leg edema compared to last visit - mid calf to feet Psych Appearance: grossly normal Mental Status: mental status grossly normal Speech and movement: Normal speech and movement present Assessment & Plan Assessment & Plan (1) Decompensated heart failure: Code(s): I50.9 - Heart failure, unspecified Plan: November 2022 [facility] admission for decompensated heart failure. Diuresed and sent home with torsemide 40 mg b.i.d.. Echocardiogram done 12/16/2022 showing EF 65-70%, no regional wall motion abnormalities, moderate to severe pulmonary hypertension. On follow-up visit it was determined he was taking torsemide only once daily. He had recurrent leg edema and a weight gain of 10 lb. He was instructed to increase his torsemide up to 40 mg b.i.d.. Follow-up labs on 02/09/2023 showed potassium 3.9, creatinine 1.42, BNP 64. Today he reports some improvement in his leg edema. His breathing is chronically short and he requires oxygen with nasal cannula. On exam he does have some coarseness to each base which could be fluid versus atelectasis. His weight still is up from his hospital discharge, currently 14 lb. He tells me his home weights have been primarily stable. Overall he appears better than last visit. Will check labs today including BMP, BNP for comparison. Continue current dose of torsemide at present. Signs and symptoms of heart failure reviewed with him. Emergency care if needed for worsening of symptoms. Cardiology follow-up 8 weeks, sooner if needed to re-evaluate Congestive heart failure. (2) Chronic a-fib: Code(s): I48.20 - Chronic atrial fibrillation, unspecified Plan: History of chronic atrial fibrillation. Rate seems controlled with use of digoxin 0.25 mg every other day. No reports of heart palpitations. He is on Coumadin for anticoagulation. INR goal 2-3. No reports of bleeding. Continue current meds without change (3) Pulmonary hypertension: Code(s): I27.20 - Pulmonary hypertension, unspecified Plan: Moderate to severe pulmonary hypertension on recent echo. On increased diuretic as above Orders: Orders B Type Natriuretic Peptide Today I50.32 - Chronic diastolic (congestive) heart failure Basic Metabolic Panel Today I50.32 - Chronic diastolic (congestive) heart failure Coding Level of Care Code Est Pt Level 4 (08335) Diagnoses Decompensated heart failure I50.9 Chronic a-fib I48.20 Pulmonary hypertension I27.20 Time Spent (min) 24
[2023-02-16 09:47] VITALS: BP 120/72; PULSE 81; BMI 32.7
== END 2023-02-16 10:14 | disposition home or self-care (01) ==
PROVIDERS: PCP Internal Medicine; Referring Provider Internal Medicine; Visit Provider Nurse Practitioner Family
DX: I50.9 Heart failure, unspecified (principal); I48.20 Chronic atrial fibrillation, unspecified; I27.20 Pulmonary hypertension, unspecified
CPT/HCPCS: 99214

== ENCOUNTER 2023-02-16 09:43 | Outpatient (REF) | payer MEDICARE, SELFPAY ==
[2023-02-16 11:03] LABS: B Type Natriuretic Peptide 62 pg/mL (<100)
[2023-02-16 11:12] LABS: Anion Gap 11 (12-20); Blood Urea Nitrogen 26 mg/dL (9-16); Calcium 9.6 mg/dL (8.4-10.2); Carbon Dioxide 38 mmol/L (22-29); Chloride 96 mmol/L (96-108); Estimated Glomerular Filt Rate 46; Glucose Random 170 mg/dL (60-115); Sodium 141 mmol/L (135-145)
== END 2023-02-16 09:44 | disposition home or self-care (01) ==
LOC: HO.LAB 09:43
PROVIDERS: PCP Internal Medicine; Referring Provider Internal Medicine; Visit Provider Nurse Practitioner Family
DX: I48.20 Chronic atrial fibrillation, unspecified (principal); I50.32 Chronic diastolic (congestive) heart failure; I27.20 Pulmonary hypertension, unspecified
CPT/HCPCS: 36415; 80048; 83880; 99212

== ENCOUNTER → 2023-02-20 10:15 | Outpatient (BNVA) | payer MEDICARE, SELFPAY | PROVIDERS: PCP Internal Medicine; Visit Provider Internal Medicine ==

== ENCOUNTER 2023-02-25 13:20 | Outpatient (REF) | payer MEDICARE, SELFPAY | END 2023-02-25 13:21 | disposition home or self-care (01) | LOC: HO.HVNA 13:20 | PROVIDERS: Visit Provider Internal Medicine | DX: I48.20 Chronic atrial fibrillation, unspecified (principal) | CPT/HCPCS: 36415 ==

== ENCOUNTER → 2023-02-27 11:31 | Outpatient (BNVA) | payer MEDICARE, SELFPAY | PROVIDERS: PCP Internal Medicine; Visit Provider Internal Medicine ==

== ENCOUNTER 2023-03-02 10:25 | Outpatient (AMB) | payer MEDICARE, SELFPAY ==
--- NOTE | 2023-03-02 11:39 | MHC.OFFVISCO ---
Intake Intake Visit Reasons: Anticoagulation Allergies No Known Allergies Allergy (Verified 03/02/23 10:29) Nursing Note INR: 1.3 out of therapeutic range Medications and supplements reviewed pt completed antbx 02/27/23, may still effect the INR Denies any signs and symptoms of bleeding or bruising or clotting. Bleeding, bruising, clotting discussed Nutritional guidance given - avoid greens for a few more days Dose: 5mg mon and thu/ 2.5mg x 5 days F/U INR: 03/06/23 Patient verbalizes understanding of instructions given Call ti PCP spoke with Josue to convey msg to PCP Anti-Coag Initial Assessment Social Hx Patient Tobacco Use Status: Former Tobacco user Alcohol intake frequency: does not drink Coding Level of Care Code Est Patient Level 1 Diagnoses Current use of anticoagulant therapy Z79.01 Results AMB INR Fingerstick AMB INR Fingerstick 1.3 Last Edit by Yumiko Gupta RN on 03/02/23 11:42 [facility] Assessment & Plan Assessment & Plan (1) Current use of anticoagulant therapy: Code(s): Z79.01 - alf (current) 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
== END 2023-03-02 12:13 | disposition home or self-care (01) ==
LOC: HO.ACS 10:25
PROVIDERS: PCP Internal Medicine; Visit Provider Internal Medicine
DX: Z79.01 Long term (current) 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 (principal)

== ENCOUNTER → 2023-03-02 10:25 | Outpatient (BNVA) | payer MEDICARE, SELFPAY | PROVIDERS: PCP Internal Medicine; Visit Provider Internal Medicine | DX: I48.20 Chronic atrial fibrillation, unspecified (principal); Z51.81 Encounter for therapeutic drug level monitoring; Z79.01 Long term (current) 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 | CPT/HCPCS: 99211 ==

== ENCOUNTER → 2023-03-06 10:38 | Outpatient (BNVA) | payer MEDICARE, SELFPAY | PROVIDERS: PCP Internal Medicine; Visit Provider Internal Medicine ==

== ENCOUNTER → 2023-03-13 10:59 | Outpatient (BNVA) | payer MEDICARE, SELFPAY | PROVIDERS: PCP Internal Medicine; Visit Provider Internal Medicine ==

== ENCOUNTER 2023-03-20 13:45 | Outpatient (REF) | payer MEDICARE, SELFPAY ==
[2023-03-20 14:19] LABS: Prothrombin Time 98.8 SEC (11.1-13.3)
[2023-03-20 14:29] LABS: INTERNATIONAL NORM RATIO 8.1 (0.9-1.1)
== END 2023-03-20 13:46 | disposition home or self-care (01) ==
LOC: HO.HVNA 13:45
PROVIDERS: Visit Provider Internal Medicine
DX: Z79.01 Long term (current) 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 (principal)
CPT/HCPCS: 36415; 85610

== ENCOUNTER → 2023-03-23 15:27 | Outpatient (BNVA) | payer MEDICARE, SELFPAY | PROVIDERS: PCP Internal Medicine; Visit Provider Internal Medicine ==

== ENCOUNTER 2023-03-27 15:52 | Outpatient (REF) | payer MEDICARE, SELFPAY ==
[2023-03-27 16:29] LABS: Prothrombin Time 158.5 SEC (11.1-13.3)
== END 2023-03-27 15:53 | disposition home or self-care (01) ==
LOC: HO.LAB 15:52
PROVIDERS: Visit Provider Internal Medicine
DX: I48.20 Chronic atrial fibrillation, unspecified (principal); Z51.81 Encounter for therapeutic drug level monitoring; Z79.01 Long term (current) 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
CPT/HCPCS: 36415; 85610

== ENCOUNTER → 2023-03-30 13:19 | Outpatient (BNVA) | payer MEDICARE, SELFPAY | PROVIDERS: PCP Internal Medicine; Visit Provider Internal Medicine ==

== ENCOUNTER → 2023-04-03 10:59 | Outpatient (BNVA) | payer MEDICARE, SELFPAY | PROVIDERS: PCP Internal Medicine; Visit Provider Internal Medicine ==

== ENCOUNTER → 2023-04-08 13:32 | Outpatient (BNVA) | payer MEDICARE, SELFPAY | PROVIDERS: PCP Internal Medicine; Visit Provider Internal Medicine ==

== ENCOUNTER 2023-04-13 13:40 | Outpatient (AMB) | payer MEDICARE, SELFPAY ==
--- NOTE | 2023-04-13 13:41 | A.OFFVIS_ITS ---
Intake Vital Signs 04/13/23 13:45 Height 5 ft 6 in Weight 211 lb 10.3 oz BMI 34.2 BP 120/70 Blood Pressure Location Lt brachial Position Sitting Pulse 68 Intake Visit Reasons: 2 month follow up Intake Note: 2 month follow-up feeling good Forklift Supervisor Required: No Implementation Specialist: Implementation Specialist Present Accompanied by: Spouse Allergies No Known Allergies Allergy (Verified 04/08/23 13:32) Medication List - Last Reconciled 04/13/23 by Mateo Bird MD albuterol sulfate 90 mcg/actuation 1 inh inhalation QID PRN alcohol swabs pad topical ascorbic acid (vitamin C) 500 mg PO DAILY budesonide-formoterol 160-4.5 mcg/actuation 2 puffs PO BID cyanocobalamin (vitamin B-12) 1,000 mcg PO DAILY digoxin 125 mcg PO Q2D ezetimibe 10 mg PO DAILY ferrous sulfate 325 mg PO DAILY metformin 500 mg PO BIDWM pravastatin 80 mg PO DAILY tiotropium bromide 18 mcg PO DAILY torsemide 40 mg See Protocol PO BID warfarin 2.5 mg See Protocol PO DAILY warfarin See Protocol 2.5 mg orally 2.5MG DAILY; HPI HPI Comments History of Present Illness Details Deny comes for follow-up. He has significant limited with exercise with significant shortness of breath with exertion. Also says he sleeps in a recliner. Currently on torsemide 40 mg b.i.d. and says his leg edema is improved although still present. Continues to have low oxygen level without supplemental oxygen and needs oxygen all the time. Denies palpitations. No lightheadedness, syncope. Last echocardiogram showed LVEF of 65-70% with moderately increasing RV size but severely dilated left atrium and right atrium as well as moderate TR and moderately elevated right ventricular systolic pressure but significantly elevated right atrial pressures. [facility] Medical History (Updated 04/13/23 @ 14:07 by Mateo Bird MD) CHF (congestive heart failure) Chronic a-fib Partial small bowel obstruction Anemia Diabetes mellitus CKD (chronic kidney disease) HTN (hypertension) Biatrial enlargement Pulmonary hypertension Chronic heart failure with preserved ejection fraction (HFpEF) HLD (hyperlipidemia) Current use of anticoagulant therapy Surgical History History of nephrectomy Hx of hernia repair Family History Father Cancer Mother No problems noted. Social History Household Members: Spouse Housing: House Do you presently have visiting nurse or other home services: No Patient Tobacco Use Status: Former Tobacco user Second Hand Smoke Exposure: No service: No Review of Systems Const Denies chills, Denies fatigue, Denies fever(s), Denies frequent falls, Denies weakness, Denies weight gain and Denies weight loss ENT Denies dizziness Card Denies chest pain, Denies leg edema, Denies lightheadedness, Denies palpitations, Denies dyspnea, Denies dyspnea on exertion, Denies orthopnea and Denies other (loss of consciousness) Resp Denies cough, Denies dyspnea and Denies dyspnea on exertion GI Denies hematochezia and Denies change in stool character Musc Denies abnormal gait, Denies muscle weakness, Denies numbness, Denies radiating pain into limb and Denies tingling Neuro Denies abnormal gait, Denies dizziness, Denies frequent falls, Denies numbness, Denies tingling and Denies weakness Endo Denies fatigue and Denies palpitations Physical Exam Vital Signs: Last Vital Signs Pulse 68 04/13/23 13:45 BP 120/70 04/13/23 13:45 BMI result Body Mass Index 34.2 Const Other: Wearing oxygen with nasal cannula General: cooperative, comfortable and no acute distress Orientation/consciousness: patient oriented x3 Neck Neck: Yes normal visual inspection Resp Effort & Inspection: normal respiratory effort Auscultation: clear to auscultation bilaterally, crackles (Fine rales noted in right lower lobe), no rhonchi and no wheezes Cardio Jugular venous distension: no JVD Rate: regular rate Rhythm: abnormal rhythm Heart sounds: S1 normal heart sound present, S2 normal heart sound present, no gallops, no murmurs and no rubs Neuro General: patient oriented x3 Extrem Other: Less lower leg edema compared to last visit - mid calf to feet Psych Appearance: grossly normal Mental Status: mental status grossly normal Speech and movement: Normal speech and movement present Assessment & Plan Assessment & Plan (1) CHF (congestive heart failure): Code(s): I50.9 - Heart failure, unspecified Plan: Patient with persistent significant shortness of breath and limitations and suggestion of orthopnea although by clinical exam does not appear to be significantly fluid overload except for that he has bilateral leg edema. He is currently on high-dose diuretic regimen. He does have significant pulmonary hypertension significantly elevated right atrial pressures on echocardiogram. Will repeat the finding. If persists with description findings will suggest cardiac catheterization to evaluate intracardiac hemodynamics. This was discussed with him. For now I will continue current diuretic regimen. He is BNP in the past has been within normal limits but this could be in patients with right heart failure. Continue rate control approach. Continue oxygen therapy and supplementation. Continue aggressively treatment of COPD. Her prognosis is guarded. (2) Chronic a-fib: Code(s): I48.20 - Chronic atrial fibrillation, unspecified Plan: Chronic atrial fibrillation which is rate control. Has failed rhythm control approach in the past. Currently on warfarin for anticoagulation. Target INR between 2 and 3 being followed by [facility]. Continue current rate contro l strategy. Semi annual digoxin assay should be performed. Will follow up in the clinic in 3 months time, sooner p.r.n.. Thank you for allowing me to partake in his care Orders: Orders CA echo limited 04/13/23 I50.9 - Heart failure, unspecified Coding Level of Care Code Est Pt Level 4 (29224) Diagnoses CHF (congestive heart failure) I50.9 Chronic a-fib I48.20
[2023-04-13 13:45] VITALS: BP 120/70; PULSE 68; BMI 34.2
== END 2023-04-13 14:10 | disposition home or self-care (01) ==
PROVIDERS: PCP Internal Medicine; Visit Provider Internal Medicine Cardiovascular Disease
DX: I50.9 Heart failure, unspecified (principal); I48.20 Chronic atrial fibrillation, unspecified
CPT/HCPCS: 99214

== ENCOUNTER → 2023-04-13 13:40 | Outpatient (BNVA) | payer MEDICARE, SELFPAY | PROVIDERS: PCP Internal Medicine; Visit Provider Internal Medicine Cardiovascular Disease | DX: I50.9 Heart failure, unspecified (principal); I48.20 Chronic atrial fibrillation, unspecified | CPT/HCPCS: 99212 ==

== ENCOUNTER → 2023-04-15 10:45 | Outpatient (BNVA) | payer MEDICARE, SELFPAY | PROVIDERS: PCP Internal Medicine; Visit Provider Internal Medicine ==

== ENCOUNTER → 2023-04-17 12:08 | Outpatient (BNVA) | payer MEDICARE, SELFPAY | PROVIDERS: PCP Internal Medicine; Visit Provider Internal Medicine ==

== ENCOUNTER 2023-04-21 14:50 | Outpatient (AMB) | payer MEDICARE, SELFPAY ==
[2023-04-21 14:58] VITALS: BP 130/70; PULSE 94; O2SAT 83; BMI 33.8
--- NOTE | 2023-04-21 14:58 | A.OFFVIS_ITS ---
Intake Vital Signs 04/21/23 14:58 Height 5 ft 6 in Weight 209 lb 7.026 oz BMI 33.8 BP 130/70 Blood Pressure Location Lt brachial Position Sitting Pulse 94 Pulse Oximetry (%) 83 L Intake Visit Reasons: fu requested by Dr. Lutz/ sara mesapultimmy edema Intake Note: Follow-up sob and low heart rate with activity per landmark c/o sob Hardwood Floor Finisher Required: No Concrete Swimming Pool Installer: Concrete Swimming Pool Installer Present Accompanied by: Spouse Allergies No Known Allergies Allergy (Verified 04/17/23 12:08) Medication List - Last Reconciled 04/21/23 by Mateo Bird MD albuterol sulfate 90 mcg/actuation 1 inh inhalation QID PRN alcohol swabs pad topical ascorbic acid (vitamin C) 500 mg PO DAILY budesonide-formoterol 160-4.5 mcg/actuation 2 puffs PO BID cyanocobalamin (vitamin B-12) 1,000 mcg PO DAILY digoxin 125 mcg PO Q2D ezetimibe 10 mg PO DAILY ferrous sulfate 325 mg PO DAILY metformin 500 mg PO BIDWM pravastatin 80 mg PO DAILY tiotropium bromide 18 mcg PO DAILY torsemide 40 mg See Protocol PO BID warfarin 2.5 mg See Protocol PO DAILY warfarin See Protocol 2.5 mg orally 2.5MG DAILY; HPI HPI Comments History of Present Illness Details Deny was referred by his home health care agency who came to evaluate him and noted to be significantly hypoxemic yesterday. Patient says today walking out of the house and getting in the car his oxygen saturation was in the 30s. After setting done in the car his oxygen saturation gradually improved into the 90s. He is currently using 2 L of replacement therapy. He came to the office and his oxygen saturation was 83 after he walked the hallway in the office. He does complain of significant shortness of breath with minimal exertion which is confirmed by his . Continues to have leg edema. Denies any clear abdominal distension or weight gain. He is using his oxygen all the time. Using his nebulizers all the time. No recent cold symptoms. He is currently on high dose torsemide therapy. [facility] Medical History (Updated 04/13/23 @ 14:07 by Mateo Bird MD) CHF (congestive heart failure) Chronic a-fib Partial small bowel obstruction Anemia Diabetes mellitus CKD (chronic kidney disease) HTN (hypertension) Biatrial enlargement Pulmonary hypertension Chronic heart failure with preserved ejection fraction (HFpEF) HLD (hyperlipidemia) Current use of anticoagulant therapy Surgical History History of nephrectomy Hx of hernia repair Family History Father Cancer Mother No problems noted. Household Members: Spouse Housing: House Do you presently have visiting nurse or other home services: No Patient Tobacco Use Status: Former Tobacco user Second Hand Smoke Exposure: No Advance Directives: No Advance Directives Information Provided: No service: No Review of Systems Const Denies chills, Denies fatigue, Denies fever(s), Denies frequent falls, Denies weakness, Denies weight gain and Denies weight loss ENT Denies dizziness Card Denies chest pain, Denies leg edema, Denies lightheadedness, Denies pal pitations, Denies dyspnea, Denies dyspnea on exertion, Denies orthopnea and Denies other (loss of consciousness) Resp Denies cough, Denies dyspnea and Denies dyspnea on exertion GI Denies hematochezia and Denies change in stool character Musc Denies abnormal gait, Denies muscle weakness, Denies numbness, Denies radiating pain into limb and Denies tingling Neuro Denies abnormal gait, Denies dizziness, Denies frequent falls, Denies numbness, Denies tingling and Denies weakness Endo Denies fatigue and Denies palpitations Physical Exam Vital Signs: Last Vital Signs Pulse 94 04/21/23 14:58 BP 130/70 04/21/23 14:58 Pulse Ox 83 L 04/21/23 14:58 BMI result Body Mass Index 33.8 Const Other: Wearing oxygen with nasal cannula General: cooperative, comfortable and no acute distress Orientation/consciousness: patient oriented x3 Neck Neck: Yes normal visual inspection and Yes JVD Resp Effort & Inspection: normal respiratory effort Auscultation: clear to auscultation bilaterally, no rhonchi, no wheezes and diminished lung sounds Cardio Jugular venous distension: no JVD Rate: regular rate Rhythm: abnormal rhythm Heart sounds: S1 normal heart sound present, S2 normal heart sound present, no gallops, no murmurs and no rubs Neuro General: patient oriented x3 Extrem Other: Less lower leg edema compared to last visit - mid calf to feet General: Yes edema Psych Appearance: grossly normal Mental Status: mental status grossly normal Speech and movement: Normal speech and movement present Assessment & Plan Assessment & Plan (1) Hypoxic respiratory failure: Code(s): J96.91 - Respiratory failure, unspecified with hypoxia Plan: Patient presents to the office after referral from home health care because of significant hypoxemia at home and noted to have significant hypoxemia with minimal exertion. Patient is also very short of breath. Clinically appears to be mildly fluid overloaded with evidence of some JVD. Although it is possible that he also has significant pleural effusion. Will require ED evaluation. Will most likely require hospitalization for IV diuresis. Will refer to emergency room for the same. Full evaluation with blood work as well as chest x-ray to be pursued. May be progressive respiratory failure related to unde rlying COPD and may require higher oxygen supplementation at home and workup pulmonary consultation. Will also require echocardiogram while inpatient and will see him while he is admitted. If he truly response significantly to diuretic therapy may require CardioMEMS placement to assess management of his fluid as this is clinically very difficult. Will follow up with him as outpatient months discharged Coding Level of Care Code Est Pt Level 4 (12961) Diagnoses Hypoxic respiratory failure J96.91
== END 2023-04-21 15:39 | disposition home or self-care (01) ==
PROVIDERS: PCP Internal Medicine; Visit Provider Internal Medicine Cardiovascular Disease
DX: J96.91 Respiratory failure, unspecified with hypoxia (principal)
CPT/HCPCS: 99214

== ENCOUNTER → 2023-04-21 14:50 | Outpatient (BNVA) | payer MEDICARE, SELFPAY | PROVIDERS: PCP Internal Medicine; Visit Provider Internal Medicine Cardiovascular Disease ==

== ENCOUNTER 2023-04-21 15:21 | Inpatient (IN) | payer MEDICARE, SELFPAY ==
--- NOTE | ~2023-04-21 | XR_ITS ---
EXAMINATION: XR CHEST CLINICAL INFORMATION: Chest pain COMPARISON: Chest 12/21/2022 TECHNIQUE: 2 views of the chest were obtained. FINDINGS: The lungs are hyperinflated but clear of acute pneumonic consolidation. There is no pleural effusion. Heart size is enlarged. Pulmonary vascularity is within normal limits. No gross bony abnormality seen. XR/XR chest 2V IMPRESSION: 1. Hyperinflated lungs without acute process. 2. Mild cardiomegaly.
--- NOTE | ~2023-04-21 | US_ITS ---
EXAMINATION: US VENOUS ULTRASOUND WITH DOPPLER LOWER EXTREMITY, BILATERAL CLINICAL INFORMATION: Bilateral lower extremity swelling COMPARISON: None available. TECHNIQUE: Ultrasound of the deep veins is performed from the hip to the calf with compression sonography and color and pulse Doppler assessment. Spectral analysis with color-flow imaging is performed. FINDINGS: RIGHT: There is normal venous compression and respiratory variation and augmented flow. The visualized common femoral vein, superficial femoral vein, profunda femoral vein, popliteal vein, and the trifurcation region shows no evidence of deep venous thrombosis. There is no significant popliteal fossa cyst. LEFT: There is normal venous compression and respiratory variation and augmented flow. The visualized common femoral vein, superficial femoral vein, profunda femoral vein, popliteal vein, and the trifurcation region shows no evidence of deep venous thrombosis. There is no significant popliteal fossa cyst. If the patient's symptoms persist, followup ultrasound in 5 days 7 days might be of value to exclude proximal propagation from a non-visualized calf vein. US/US venous duplex LE BI IMPRESSION: No DVT demonstrated in the bilateral lower extremity.
[2023-04-21 15:30] VITALS: BP 113/34; PULSE 92; RESP 24; TEMP 36.6; O2SAT 94; BMI 30.1
--- NOTE | 2023-04-21 15:39 | ED_ITS ---
HPI - SOB/Dyspnea General Chief Complaint: Dyspnea Stated Complaint: low oxygen Time Seen by Provider: 04/21/23 16:16 Source: patient Mode of arrival: ambulatory Limitations: no limitations History of Present Illness HPI Narrative: Patient is 72 years old with history of AFib on Coumadin, hypertension, CHF with preserved ejection fraction, venous stasis, and chronic leg edema, diabetes, chronic hypoxemic respiratory failure due to COPD on 2 L of oxygen comes here from the [facility] for exertional dyspnea for last few days patient does desaturate to low 30s on 2 L of oxygen on mild exertion even when ambulates out of the house to the car. No chest pain no palpitation has occasional dry cough patient a pulse ox dropped to 83% when he walked in the hallway to see the aircraft power plant assembler earlier today. Patient denied any black stools no history of blood transfusion noted to have hemoglobin of 7 on arrival patient had recent labs done which showed digoxin level of 1.0 Related Data Home Medications Medication Instructions Recorded Confirmed ascorbic acid (vitamin C) 500 mg 500 mg PO DAILY 05/01/20 04/21/23 tablet budesonide-formoterol HFA 160 2 puff PO BID 05/01/20 04/21/23 mcg-4.5 mcg/actuation aerosol inhaler ezetimibe 10 mg tablet 10 mg PO DAILY 05/01/20 04/21/23 ferrous sulfate 325 mg (65 mg 325 mg PO DAILY 05/01/20 04/21/23 iron) tablet metformin 500 mg tablet 500 mg PO BIDWM 05/01/20 04/21/23 tiotropium bromide 18 mcg capsule 18 mcg PO DAILY 05/01/20 04/21/23 with inhalation device albuterol sulfate 90 mcg/actuation 1 inh inhalation QID PRN shortness 11/10/22 04/21/23 aerosol inhaler of breath or wheezing cyanocobalamin (vitamin B-12) 1,000 mcg PO DAILY 12/15/22 04/21/23 1,000 mcg tablet warfarin 2.5 mg tablet 2.5 mg PO DAILY 04/03/23 04/21/23 warfarin 2.5 mg tablet 1.25 mg PO SUWE 04/21/23 04/21/23 warfarin 2.5 mg tablet 2.5 mg PO MOTUTHFRSA 04/21/23 04/21/23 Previous Rx's Medication Instructions Recorded digoxin 125 mcg (0.125 mg) tablet 125 mcg PO Q2D #30 tabs 12/21/22 torsemide 20 mg tablet 40 mg PO BID #120 tabs 02/24/23 pravastatin 80 mg tablet 80 mg PO DAILY #90 tabs 04/02/23 Allergies Allergy/AdvReac Type Severity Reaction Status Date / Time No Known Allergies Allergy Verified 04/17/23 12:08 Review of Systems 2 Review of Systems: Yes all other systems are reviewed and are negative [facility] Past Medical History Medical History CHF (congestive heart failure) Chronic a-fib Partial small bowel obstruction Anemia Diabetes mellitus CKD (chronic kidney disease) HTN (hypertension) Biatrial enlargement Pulmonary hypertension Chronic heart failure with preserved ejection fraction (HFpEF) HLD (hyperlipidemia) Current use of anticoagulant therapy Surgical History History of nephrectomy Hx of hernia repair Family History Family History Father Cancer Mother No problems noted. Social History Household Members: Spouse Housing: House Do you presently have visiting nurse or other home services: No Patient Tobacco Use Status: Former Tobacco user Second Hand Smoke Exposure: No Use of substances other than those prescribed or required for medical reasons: No Currently Displaying Signs/Symptoms of Drug Intoxication Withdrawal: No Have you been hit, kicked, punched, or otherwise hurt by someone within the past year? If so, by whom?: No Do you feel safe in your current relationship?: Yes Is there a partner from a previous relationship who is making you feel unsafe now?: No Advance Directives: No Advance Directives Information Provided: No Advance Directives on File: No Do you have thoughts of harming others: None Do you have a plan to hurt others: No Plan service: No Physical Exam 2 Vital Signs: Vital Signs: Last Vital Signs Temp 97.6 F 04/22/23 21:04 Pulse 64 04/22/23 21:04 Resp 20 04/22/23 21:04 BP 111/58 L 04/22/23 21:04 Pulse Ox 92 04/22/23 19:19 O2 Del Method Nasal Cannula 04/22/23 19:19 O2 Flow Rate 2 04/22/23 15:34 Oxygen Flow Rate 2 04/21/23 15:30 BMI result Body Mass Index 30.1 Appearance: Alert. Oriented X3. No acute distress. Eyes: PERRLA, pallor+ ENT: Pharynx normal. Oral Mucosa moist Neck: Normal inspection. Neck supple. CVS: Irregularly irregular heart rate systolic ejection murmur at base no rub or gallop. Pulses normal. Respiratory: No respiratory distress. Equal air entry bilateral, bilateral fine crackles at bases Abdomen: Soft and nontender. Bowel sounds are present no mass palpable no cva tenderness, rectal: Brown stool guaiac negative Skin: Skin warm and dry. Normal skin color. Normal skin turgor. Extremities: 2+ lower extremity edema. No calf tenderness Neuro: Oriented X 3. No motor deficit. Course Course Course Narrative: This is an RME: Additional HPI, ROS, PE not included below will be deferred to primary provider. This is a 72-year-old male presenting to the emergency department from Cardiology. He has been hypoxic at home, uses home O2 but has been requiring more. Patient fluctuating between 85% and 93% while sitting and speaking. Respirations 24, blood pressure 113/34. Contacted charge nurse to bring patient back mel. Plan: Labs, EKG, chest x-ray Medications Administered Generic Name Dose Route Start Last Admin Trade Name Gordon PRN Reason Stop Dose Admin Ascorbic Acid 500 mg 04/22/23 09:00 04/22/23 07:56 Ascorbic Acid 500 Mg Tablet PO 500 mg DAILY MERT Administration Cyanocobalamin 1,000 mcg 04/22/23 09:00 04/22/23 07:56 Cyanocobalamin (Vitamin B-12) 1,000 Mcg Tablet PO 1,000 mcg DAILY MERT Administration Digoxin 0.125 mg 04/22/23 09:00 04/22/23 08:00 Digoxin 0.125 Mg Tablet PO 0.125 mg Q2D MERT Administration Ezetimibe 10 mg 04/22/23 09:00 04/22/23 07:56 Ezetimibe 10 Mg Tablet PO 10 mg DAILY MERT Administration Ferrous Sulfate 324 mg 04/22/23 09:00 04/22/23 07:56 Ferrous Sulfate 324 Mg Tablet. PO 324 mg DAILY MERT Administration Fluticasone/Vilanterol 1 puff 04/22/23 08:00 04/22/23 07:48 Fluticasone/Vilanterol 200/25 Blst.W.Dev INHALE 1 puff RDAILY MERT Administration Furosemide 20 mg 04/22/23 09:00 04/22/23 07:56 Furosemide 20 Mg/2 Ml Vial IVPUSH 20 mg DAILY [facility] Administration Protocol Insulin Human Lispro 0 unit 04/21/23 21:00 04/22/23 20:09 Insulin Lispro 100 Unit/Ml 3 Ml Vial SUBCUT Not Given QIDACHS [facility] Protocol Pravastatin Sodium 80 mg 04/22/23 09:00 04/22/23 07:56 Pravastatin Sodium 80 Mg Tablet PO 80 mg DAILY MERT Administration Sodium Chloride 3 ml 04/22/23 00:00 04/22/23 17:07 0.9 % Sodium Chloride Flush 3 Ml Syringe IVFLUSH 3 ml QSHIFT [facility] Administration Tiotropium [place] 1 puff 04/22/23 08:00 04/22/23 07:48 Tiotropium [place] 2.5 Mcg 1 Puff/2.5 Mcg Mist.Inhal INHALE 1 puff RDAILY MERT Administration Warfarin Sodium 1.25 mg 04/22/23 18:00 04/22/23 17:49 Warfarin Sodium 1.25 Mg Halftab PO 1.25 mg [id number] [facility] Administration Discontinued Medications Generic Name Dose Route Start Last Admin Trade Name Freq PRN Reason Stop Dose Admin Furosemide 20 mg 04/21/23 17:01 04/21/23 18:03 Furosemide 20 Mg/2 Ml Vial IVPUSH 04/21/23 17:02 20 mg ONCE ONE Administration Protocol Furosemide 20 mg 04/21/23 19:16 04/21/23 22:36 Furosemide 20 Mg/2 Ml Vial IVPUSH 04/21/23 19:17 20 mg ONCE ONE Administration Protocol Furosemide 20 mg 04/22/23 16:21 04/22/23 17:06 Furosemide 20 Mg/2 Ml Vial IVPUSH 04/22/23 16:22 20 mg ONCE ONE Administration Protocol Sodium Chloride 100 mls @ 100 mls/hr 04/21/23 17:00 04/21/23 22:25 Ns IV 04/21/23 17:59 Infused ONCE ONE Infusion Sodium Chloride 100 mls @ 100 mls/hr 04/22/23 16:21 04/22/23 20:55 Ns IV 04/22/23 17:20 Infused ONCE ONE Infusion Medical Decision Making Medical Decision Making [facility] Narrative: 72-year-old male with history of heart failure with preserved ejection fraction, pulmonary hypertension, hypertension, CKD stage 3, COPD with chronic hypoxemic respiratory failure on 2 L supplemental O2 at baseline, [id number] type 2 diabetes, chronic atrial fibrillation anticoagulated with Coumadin and on digoxin, hyperlipidemia, venous insufficiency, and chronic anemia admitted for symptomatic anemia with chf exacerbation and acute on chronic hypoxemic respiratory failure hemoglobin 7 hematocrit 25.3 will receive 1 unit of PRBC in the ER along with diuresis Differential Diagnosis Differential Diagnoses: The differential diagnosis associated with the presentation includes As above Admission/Observation Consideration of admission/observation: Escalation of care including admission/observation considered Consult Healthcare Provider Management of the patient was discussed with: Hospitalist Lab Data [facility] Lab Attestation statement: I reviewed the patient's lab results. 04/22/23 13:30 04/22/23 06:46 Labs: Lab Results 04/21/23 04/21/23 04/21/23 Range/Units 16:14 17:15 18:29 WBC 5.1 (4.8-10.8) X10*3/uL RBC 2.47 L (4.60-5.80) X10*6/uL Hgb 7.0 L* D (14.0-18.0) g/dl Hct 25.3 L (42.0-52.0) % MCV 102.4 H (80.0-98.0) fL MCH 28.3 (27.0-33.0) pg MCHC 27.7 L (31.0-36.0) g/dl RDW 17.5 H (11.0-16.0) % Plt Count 214 (160-400) X10*3/uL MPV 9.7 (9.4-12.4) fL Immature Gran % (Auto) 0.2 (0.0-0.4) % Neut % (Auto) 70.1 (45-73) % Lymph % (Auto) 15.4 L (20-40) % [place] % (Auto) 10.9 (2-11) % Eos % (Auto) 3.0 (0-4) % Baso % (Auto) 0.4 (0-2) % Lymph # (Auto) 0.8 L (1.2-4.9) X10*3/uL [place] # (Auto) 0.6 (0.1-1.2) X10*3/uL Eos # (Auto) 0.2 (0.0-0.4) X10*3/uL Baso # (Auto) 0.0 (0.0-0.2) X10*3/uL Abs Immat Gran (auto) 0.01 (0.00-0.03) X10*3/uL Absolute Neuts (auto) 3.5 (2.0-8.3) x10*3/uL Absolute Nucleated RBC 0.000 (0.0-0.012) X10*3/uL Nucleated RBC % (auto) 0.0 (0.0-0.2) /100WBC PT 19.9 H D (11.1-13.3) SEC INR 1.6 H D (0.9-1.1) Sodium 144 (135-145) mmol/L Potassium 3.9 (3.3-5.1) mmol/L Chloride 94 L (96-108) mmol/L Carbon Dioxide 42 H* (22-29) mmol/L Anion Gap 12 (12-20) BUN 23 H (9-16) mg/dL Creatinine 1.55 H (0.5-1.4) mg/dL Estim Creat Clear Calc 46.2 Estimated GFR 44 Random Glucose 128 H (60-115) mg/dL Calcium 9.0 D (8.4-10.2) mg/dL Iron 168 H (45-160) mcg/dL TIBC 356 (228-428) mcg/dL % Saturation 47 (15-50) % Unsat Iron Binding 188 ug/dL Ferritin 38 (20-250) ng/mL Total Bilirubin 0.5 (0.0-1.0) mg/dL Direct Bilirubin 0.2 (0.0-0.5) mg/dL AST 23 (5-37) U/L ALT 13 (0-40) U/L Alkaline Phosphatase 44 (39-117) U/L Troponin I High Sens 8.6 (<3.5-35.0) ng/L B-Natriuretic Peptide 136 H (<100) pg/mL Total Protein 6.8 (6.5-8.0) g/dL Albumin 3.8 (3.5-5.0) g/dL Stool Occult Blood NEGATIVE (NEGATIVE) Influenza Type A (PCR) NEGATIVE (Negative) Influenza Type B (PCR) NEGATIVE (Negative) RSV RNA Qual (PCR) NEGATIVE (Negative) SARS-CoV-2 RNA (RT-PCR) NEGATIVE (Negative) Blood Type O Positive Antibody Screen NEGATIVE Crossmatch See Detail Independent Interpretation I performed an independent interpretation of an: EKG and Plain X-Ray Interpretation: Atrial fibrillation with ventricular rate 62 beats per minute nonspecific ST-T changes no acute ischemic changes no acute ischemic Radiology Impression Discussion of test interpretation with radiology: I have reviewed the radiologist's reading. Radiologist Impression: XR/XR chest 2V IMPRESSION: 1. Hyperinflated lungs without acute process. 2. Mild cardiomegaly. External Record Review External record reviewed: Outpatient record and Prior outpatient labs Discharge Plan Discharge Clinical Impression: Acute and chronic respiratory failure with hypoxia, Severe anemia Patient Disposition: Admitted As Inpatient Interventions: Admission Worksheet (ED) Last Done: 04/21/23 20:28 Discharge Date/Time: 04/21/23 20:29
--- NOTE | 2023-04-21 15:40 | ECG_ITS ---
Test Reason : SOB Blood Pressure : / mmHG Vent. Rate : 062 BPM Atrial Rate : 000 BPM P-R Int : 000 ms QRS Dur : 108 ms QT Int : 460 ms P-R-T Axes : 000 035 -11 degrees QTc Int : 466 ms Atrial fibrillation with premature ventricular or aberrantly conducted complexes Nonspecific ST abnormality Low voltage QRS RSR' or QR pattern in V1 suggests right ventricular conduction delay Abnormal ECG When compared with ECG of 15-DEC-2022 12:07, ST less depressed in Inferior leads Referred By: Cristy Burciaga Electronically Signed By:PEGGY PINTO MD
[2023-04-21 16:19] LABS: MANUAL DIFF FLAG NO
[2023-04-21 16:23] LABS: Basophils Percent Auto 0.4 % (0-2); Eosinophils Absolute Auto 0.2 X10*3/uL (0.0-0.4); Hematocrit 25.3 % (42.0-52.0); Imm Gran Abs Auto 0.01 X10*3/uL (0.00-0.03); Imm Gran Pct Auto 0.2 % (0.0-0.4); Lymphocytes Absolute Auto 0.8 X10*3/uL (1.2-4.9); Lymphocytes Percent Auto 15.4 % (20-40); Mean Corpuscular HGB Conc 27.7 g/dl (31.0-36.0); Mean Corpuscular Hemoglobin 28.3 pg (27.0-33.0); Mean Corpuscular Volume 102.4 fL (80.0-98.0); Mean Platelet Volume 9.7 fL (9.4-12.4); Monocytes Absolute Auto 0.6 X10*3/uL (0.1-1.2); Monocytes Percent Auto 10.9 % (2-11); Neutrophils Absolute Auto 3.5 x10*3/uL (2.0-8.3); Neutrophils Percent Auto 70.1 % (45-73); Platelet Count 214 X10*3/uL (160-400); Red Blood Count 2.47 X10*6/uL (4.60-5.80); Red Cell Distribution Width 17.5 % (11.0-16.0); White Blood Count 5.1 X10*3/uL (4.8-10.8)
[2023-04-21 16:43] LABS: Alanine Aminotransferase 13 U/L (0-40); Albumin Level 3.8 g/dL (3.5-5.0); Alkaline Phosphatase 44 U/L (39-117); Anion Gap 12 (12-20); Aspartate Amino Transferase 23 U/L (5-37); Bilirubin Direct 0.2 mg/dL (0.0-0.5); Bilirubin Total 0.5 mg/dL (0.0-1.0); Blood Urea Nitrogen 23 mg/dL (9-16); Carbon Dioxide 42 mmol/L (22-29); Chloride 94 mmol/L (96-108); Creatinine Clr Calc Pharmacy 46.2; Estimated Glomerular Filt Rate 44; Glucose Random 128 mg/dL (60-115); Potassium 3.9 mmol/L (3.3-5.1); Sodium 144 mmol/L (135-145); Total Protein 6.8 g/dL (6.5-8.0)
[2023-04-21 16:44] LABS: Troponin-I High Sensitivity 8.6 ng/L (<3.5-35.0)
[2023-04-21 16:46] LABS: B Type Natriuretic Peptide 136 pg/mL (<100)
[2023-04-21 17:05] LABS: Influenza A PCR NEGATIVE (Negative); Influenza B PCR NEGATIVE (Negative); Resp Syncy Virus RNA Qual PCR NEGATIVE (Negative); SARS COV2 PCR INHOUSE NEGATIVE (Negative)
[2023-04-21 17:29] LABS: INTERNATIONAL NORM RATIO 1.6 (0.9-1.1); Prothrombin Time 19.9 SEC (11.1-13.3)
--- NOTE | 2023-04-21 17:33 | PC.NURSE ---
patient appears more comfortable at this time, resting quietly on stretcher with at bedside. bilateral IVs placed, type and screen obtained. patient aware of need for blood transfusion.
[2023-04-21] MEDS: Furosemide 20 MG/2 ML VIAL IVPUSH ×2 (18:03→22:36)
[2023-04-21 18:04] VITALS: BP 117/53; PULSE 71; RESP 14; TEMP 36.6; O2SAT 98
[2023-04-21 18:34] LABS: OBS Int Ctl Valid YES; OBS1 NEGATIVE (NEGATIVE)
[2023-04-21 18:48] VITALS: BP 112/47; PULSE 92; RESP 18; TEMP 36.6
--- NOTE | 2023-04-21 18:50 | PHA.MEDREC ---
Pharmacy Consult ? Medication Reconciliation Pharmacy has completed the medication reconciliation. Patient had list from [facility]. On list was diltiazem which has not been filled since August and was dc'd when patient was admitted in November. Patient reported INR has been all over the place, utilzide anticoag clini notes for warfarin dosing. Pamella Mccarthy ,LivanD
--- NOTE | 2023-04-21 18:52 | PC.NURSE ---
hospitalist met with patient, first unit of blood infusing at this time.
--- NOTE | 2023-04-21 19:03 | P.HPHOSP_ITS ---
<Statement entered by Shirlene Mead MD - 04/23/23 09:34> The patient was seen and evaluated with JULIANNE Martin. I agree with her note, assessment and plan with the following. In summary, A 72 years old lady with PMH of CHF, HTN, CKD3, COPD on 2L, DM2 among others who presented with SOB and dyspnea. # Acute on chronic hypoxic resp failure 2/2 CHF exacerbation # Symptomatic anemia transfuse 1 unit PRBCs IV lasix wean oxygen to baseline 2 L as tolerated Hematology eval Rest of evaluations by PA note. History of Present Illness Date of Service: 04/21/23 Attending physician on admission: Shirlene Mead Chief Complaint: sob, hudson 72-year-old male with history of heart failure with preserved ejection fraction, pulmonary hypertension, hypertension, CKD stage 3, COPD with chronic hypoxemic respiratory failure on 2 L supplemental O2 at baseline, [id number] type 2 diabetes, chronic atrial fibrillation anticoagulated with Coumadin and on digoxin, hyperlipidemia, venous insufficiency, and chronic anemia presented to the ED earlier today from Cardiology office for evaluation of dyspnea on exertion and acute hypoxia. He states that he has been having progressively worsening dyspnea on exertion over the last 3 weeks as well as orthopnea. Denies any PND. He does measure his weight daily and states that weights have been stable between 197-199. However, he has noted increased edema in the bilateral lower extremities. Reports compliance with diuretics. No recent illness. No fevers, chills, abdominal pain, nausea, vomiting, diarrhea, melena, hematochezia, epistaxis, significant bruising, lightheadedness, headaches, or chest pains. On arrival, patient hypoxic to 83%, supplemental O2 increased to 3 L now maintaining oximetry 94-98%. Vitals otherwise stable. There is no leukocytosis. H/H 7.0/25.3%, MCV 102.4. INR 1.6. Renal function consistent with baseline, electrolyte levels normal except for CO2 42 also consistent with baseline. Glucose 128. Iron panel, vitamin B12, folic acid levels pending. Troponin within normal limits. BNP 136, baseline around 62. Stool occult blood negative. Negative for influenza, RSV, COVID-19. Chest x-ray shows mild cardiomegaly and hyper inflated lungs without acute process. EKG shows atrial fibrillation with PVCs and nonspecific T ST abnormality, rate 62. In the ED, has been diuresed with 20 mg IV Lasix and is being transfused 1 unit packed red blood cells. Review of Systems 2 Review of Systems: General: No fevers, malaise, unintentional weight loss HEENT: No blurred vision, diplopia. No sore throat, nasal congestion, rhinorrhea, sinus pain, ear pain Cardiovascular: No chest pain, palpitations. +ble edema Respiratory: +hudson. No shortness of breath at rest, wheezing, cough GI: No abdominal pain, nausea, vomiting, diarrhea, constipation, melena, hematochezia : No dysuria, hematuria, increased urinary frequency, decreased urinary output MSK: No myalgia, back pain Neuro: No headaches, weakness, paresthesias Skin: No rashes or lesions [facility] Medical History CHF (congestive heart failure) Chronic a-fib Partial small bowel obstruction Anemia Diabetes mellitus CKD (chronic kidney disease) HTN (hypertension) Biatrial enlargement Pulmonary hypertension Chronic heart failure with preserved ejection fraction (HFpEF) HLD (hyperlipidemia) Current use of anticoagulant therapy Family History Father Cancer Mother No problems noted. Surgical History History of nephrectomy Hx of hernia repair Household Members: Spouse Housing: House Do you presently have visiting nurse or other home services: No Patient Tobacco Use Status: Former Tobacco user Second Hand Smoke Exposure: No Advance Directives: No Advance Directives Information Provided: No service: No Meds Allergies Allergy/AdvReac Type Severity Reaction Status Date / Time No Known Allergies Allergy Verified 04/17/23 12:08 Active Medications: Current Medications Acetaminophen (Acetaminophen 325 Mg Tablet) 650 mg PO Q6H PRN PRN Reason: Pain, Mild (Pain Scale 1-3) Docusate Sodium (Docusate Sodium 100 Mg Capsule) 100 mg PO DAILY PRN PRN Reason: Constipation Furosemide (Furosemide 20 Mg/2 Ml Vial) 20 mg IVPUSH DAILY [facility]; Protocol Ondansetron HCl (Ondansetron Hcl 4 Mg/2 Ml Vial) 4 mg IVPUSH Q8H PRN PRN Reason: Nausea and Vomiting Sodium Chloride (0.9 % Sodium Chloride Flush 3 Ml Syringe) 3 ml IVFLUSH [facility] Home Medications Medication Instructions Recorded Confirmed Last Taken Type ascorbic acid (vitamin C) 500 mg 500 mg PO DAILY 05/01/20 04/21/23 04/21/23 History tablet budesonide-formoterol HFA 160 2 puff PO BID 05/01/20 04/21/23 04/21/23 History mcg-4.5 mcg/actuation aerosol inhaler ezetimibe 10 mg tablet 10 mg PO DAILY 05/01/20 04/21/23 04/21/23 History ferrous sulfate 325 mg (65 mg 325 mg PO DAILY 05/01/20 04/21/23 04/21/23 History iron) tablet metformin 500 mg tablet 500 mg PO BIDWM 05/01/20 04/21/23 04/21/23 History tiotropium bromide 18 mcg capsule 18 mcg PO DAILY 05/01/20 04/21/23 04/21/23 History with inhalation device albuterol sulfate 90 mcg/actuation 1 inh inhalation QID PRN shortness 11/10/22 04/21/23 04/21/23 History aerosol inhaler of breath or wheezing cyanocobalamin (vitamin B-12) 1,000 mcg PO DAILY 12/15/22 04/21/23 04/21/23 History 1,000 mcg tablet warfarin 2.5 mg tablet 2.5 mg PO DAILY 04/03/23 04/21/23 Unknown History warfarin 2.5 mg tablet 1.25 mg PO SUWE 04/21/23 04/21/23 Unknown History warfarin 2.5 mg tablet 2.5 mg PO MOTUTHFRSA 04/21/23 04/21/23 Unknown History Physical Exam 2 Vital Signs and Narrative: Vital Signs: Last Vital Signs Temp 97.9 F 04/21/23 18:48 Pulse 92 04/21/23 18:48 Resp 18 04/21/23 18:48 BP 112/47 L 04/21/23 18:48 Pulse Ox 98 04/21/23 18:04 O2 Del Method Nasal Cannula 04/21/23 18:04 O2 Flow Rate 3 04/21/23 18:04 Oxygen Flow Rate 2 04/21/23 15:30 BMI result Body Mass Index 30.1 Constitutional - Awake and Alert, No apparent distress Eyes - PERRLA, EOMI Cardiovascular - S1S2, RRR, 2+ pitting edema ble Respiratory - Normal lung expansion, Normal respiratory effort, No respiratory distress on 3 L supplemental O2, bibasilar crackles Gastrointestinal - NT / ND; +BS; No rebound or guarding Extremities - no calf tenderness bilaterally, no swelling Skin - Warm/Dry. venous stasis changes ble. 1.5c, x1cm superficial abrasion right upper back with minimal bleeding Neurological - Alert & oriented x3 Psychological - Appropriate affect Results Labs 04/21/23 16:14 04/21/23 16:14 Labs: Laboratory Results - last 24 hr 04/21/23 04/21/23 04/21/23 16:14 17:15 18:29 MCV 102.4 H MCH 28.3 MCHC 27.7 L RDW 17.5 H Plt Count 214 MPV 9.7 Immature Gran % (Auto) 0.2 Neut % (Auto) 70.1 Lymph % (Auto) 15.4 L [place] % (Auto) 10.9 Eos % (Auto) 3.0 Baso % (Auto) 0.4 Lymph # (Auto) 0.8 L [place] # (Auto) 0.6 Eos # (Auto) 0.2 Baso # (Auto) 0.0 Abs Immat Gran (auto) 0.01 Absolute Neuts (auto) 3.5 Absolute Nucleated RBC 0.000 Nucleated RBC % (auto) 0.0 PT 19.9 H D INR 1.6 H D Anion Gap 12 Estim Creat Clear Calc 46.2 Estimated GFR 44 Random Glucose 128 H Calcium 9.0 D Total Bilirubin 0.5 Direct Bilirubin 0.2 AST 23 ALT 13 Alkaline Phosphatase 44 B-Natriuretic Peptide 136 H Total Protein 6.8 Albumin 3.8 Stool Occult Blood NEGATIVE Influenza Type A (PCR) NEGATIVE Influenza Type B (PCR) NEGATIVE RSV RNA Qual (PCR) NEGATIVE SARS-CoV-2 RNA (RT-PCR) NEGATIVE Blood Type O Positive Antibody Screen NEGATIVE Crossmatch See Detail Imaging Radiologist's Impressions: Impressions Chest X-Ray 04/21/23 15:55 IMPRESSION: 1. Hyperinflated lungs without acute process. 2. Mild cardiomegaly. Assessment and Plan (1) Severe anemia: Status: Acute (2) Acute and chronic respiratory failure with hypoxia: Status: Acute (3) CHF exacerbation: Status: Acute Plan 72-year-old male with history of heart failure with preserved ejection fraction, pulmonary hypertension, hypertension, CKD stage 3, COPD with chronic hypoxemic respiratory failure on 2 L supplemental O2 at baseline, [id number] type 2 diabetes, chronic atrial fibrillation anticoagulated with Coumadin and on digoxin, hyperlipidemia, venous insufficiency, and chronic anemia admitted for symptomatic anemia with chf exacerbation and acute on chronic hypoxemic respiratory failure. # symptomatic anemia -H/H 7.0/25.3% (baseline 9.3/30.8%) -stool occult blood negative -transfuse 1 unit packed red blood cells in the ED -iron panel, ferritin, folic acid, vitamin B12 levels pending -follow CBC -monitor on telemetry # acute on chronic hypoxemic respiratory failure secondary to CHF exacerbation -continue supplemental O2 to maintain oximetry 90-92% -wean oxygen to baseline 2 L as tolerated # CHF exacerbation- likely due to demand from severe anemia -has hfpef at baseline -last echo 12/21- normal LV systolic function with EF 65-70% with severely dilated bilateral atria. Moderately increased right ventricular cavity size with normal RV systolic function. There is moderate tricuspid valve regurgitation and moderate to severe pulmonary hypertension. -give additional 20 mg IV Lasix now (received 20 mg IV Lasix in the ED). Continue 20 mg IV Lasix daily, transition to p.o. as patient improves clinically -cardiac diet -daily weights -strict I&O -follow BNP, BMP # chronic atrial fibrillation- rate controlled -stool occult blood negative. Denies bleeding -INR subtherapeutic at 1.6. Hold Coumadin today, resume tomorrow as scheduled -monitor INR daily -continue digoxin # COPD -no acute exacerbation -continue Symbicort, Spiriva -albuterol p.r.n. # [id number]-dzfadqbdw type 2 diabetes-without hyperglycemia -POC glucose -diabetic diet -Humalog on sliding scale -hold metformin # HLD -continue statin # CKD stage 3 -renal function baseline DVT prophylaxis-on Coumadin Full code Patient requires inpatient stay at least 2 midnights for management of severe symptomatic anemia requiring blood transfusion as well as management of CHF exacerbation requiring IV diuresis and close monitoring of renal function and electrolyte levels as well as close monitoring to prevent cardiopulmonary decompensation Quality Stroke Does the patient have a stroke diagnosis?: No VTE Prior VTE?: No VTE Risk Level:: Medical - moderate - high VTE Device Contraindication: Treatment Not Indicated VTE Drug Contraindication: N/A - Med Ordered
[2023-04-21 19:06] VITALS: BP 104/49; PULSE 70; RESP 24; TEMP 36.5
--- NOTE | 2023-04-21 19:07 | PC.NURSE ---
patient showing no signs/symptoms of distress at this time, first unit of blood continues to infuse
[2023-04-21 19:15] LABS: Iron 168 mcg/dL (45-160); Percent Iron Saturation 47 % (15-50); Total Iron Binding Capacity 356 mcg/dL (228-428); Unsaturated Iron Binding 188 ug/dL
[2023-04-21 19:35] LABS: Ferritin 38 ng/mL (20-250)
--- NOTE | 2023-04-21 19:57 | PC.NURSE ---
Pt ca&ox4, no signs of distress. Plan of care ongoing.
[2023-04-21 20:00] VITALS: BP 122/64; PULSE 77; RESP 18; TEMP 36.1; O2SAT 94
[2023-04-21 22:28] VITALS: BP 121/60; PULSE 71; RESP 18; TEMP 36.2
[2023-04-21 22:45] LABS: Glucose, Whole Blood 204 mg/dL (60-115)
[2023-04-21] MEDS: Insulin Lispro 100 UNIT/ML 3 ML VIAL SUBCUT (22:45)
[2023-04-22] VITALS (11 sets, daily range): BP systolic 100–132; BP diastolic 50–89; PULSE 60–87; RESP 14–22; TEMP 36.1–37.2; O2SAT 92–99
[2023-04-22] MEDS: 0.9 % Sodium Chloride Flush 3 ML SYRINGE IVFLUSH ×3 (03:32→17:07)
[2023-04-22 07:26] LABS: MANUAL DIFF FLAG NO
[2023-04-22 07:33] LABS: Basophils Percent Auto 0.6 % (0-2); Eosinophils Absolute Auto 0.2 X10*3/uL (0.0-0.4); Eosinophils Percent Auto 2.9 % (0-4); Hematocrit 26.5 % (42.0-52.0); Hemoglobin 7.6 g/dl (14.0-18.0); Imm Gran Abs Auto 0.02 X10*3/uL (0.00-0.03); Imm Gran Pct Auto 0.4 % (0.0-0.4); Lymphocytes Absolute Auto 0.8 X10*3/uL (1.2-4.9); Lymphocytes Percent Auto 16.1 % (20-40); Mean Corpuscular HGB Conc 28.7 g/dl (31.0-36.0); Mean Corpuscular Hemoglobin 28.3 pg (27.0-33.0); Mean Corpuscular Volume 98.5 fL (80.0-98.0); Mean Platelet Volume 10.4 fL (9.4-12.4); Monocytes Absolute Auto 0.5 X10*3/uL (0.1-1.2); Monocytes Percent Auto 10.5 % (2-11); Neutrophils Absolute Auto 3.6 x10*3/uL (2.0-8.3); Neutrophils Percent Auto 69.5 % (45-73); Platelet Count 210 X10*3/uL (160-400); Red Blood Count 2.69 X10*6/uL (4.60-5.80); Red Cell Distribution Width 17.2 % (11.0-16.0); White Blood Count 5.1 X10*3/uL (4.8-10.8)
[2023-04-22 07:40] LABS: INTERNATIONAL NORM RATIO 1.6 (0.9-1.1); Prothrombin Time 18.9 SEC (11.1-13.3)
[2023-04-22 07:46] LABS: Anion Gap 15 (12-20); Blood Urea Nitrogen 20 mg/dL (9-16); Calcium 8.8 mg/dL (8.4-10.2); Carbon Dioxide 38 mmol/L (22-29); Chloride 96 mmol/L (96-108); Creatinine Clr Calc Pharmacy 51.1; Estimated Glomerular Filt Rate 50; Glucose Random 83 mg/dL (60-115); Potassium 3.6 mmol/L (3.3-5.1); Sodium 145 mmol/L (135-145)
[2023-04-22 07:47] LABS: Glucose, Whole Blood 91 mg/dL (60-115)
[2023-04-22] MEDS: Fluticasone/Vilanterol 200/25 BLST.W.DEV 1 PUFF INHALE (07:48)
[2023-04-22] MEDS: Tiotropium Bromide 2.5 mcg 1 PUFF/2.5 MCG MIST.INHAL INHALE (07:48)
[2023-04-22 07:53] LABS: B Type Natriuretic Peptide 139 pg/mL (<100)
[2023-04-22] MEDS: Pravastatin Sodium 80 MG TABLET PO (07:56)
[2023-04-22] MEDS: Ezetimibe 10 MG TABLET PO (07:56)
[2023-04-22] MEDS: Ferrous Sulfate 324 MG TABLET.DR PO (07:56)
[2023-04-22] MEDS: Cyanocobalamin (Vitamin B-12) 1,000 MCG TABLET 1000 MCG PO (07:56)
[2023-04-22] MEDS: Ascorbic Acid 500 MG TABLET PO (07:56)
[2023-04-22] MEDS: Furosemide 20 MG/2 ML VIAL IVPUSH ×2 (07:56→17:06)
[2023-04-22] MEDS: Digoxin 0.125 MG TABLET PO (08:00)
--- NOTE | 2023-04-22 08:37 | MHC.CM.PN ---
CM met with Patient at bedside and addressed IMM with him, providing Patient with the original and placing a copy on the chart. Patient lives in a house with his /HCP and he used a cane and a walker [employer]. Patient obtains his O2 from [facility] and he has been active in the past with [facility]. Home/new [facility] is the tentative plan and CM has initiated and will follow for dc planning. PCP is Dr.Gino Berrios.
--- NOTE | 2023-04-22 10:42 | MHC.CM.PN ---
CORRECTION! Patient is currently ACTIVE with [facility].
--- NOTE | 2023-04-22 10:55 | MHC.CM.PN ---
Per ROUNDS discussion and tiger text with JULIANNE/Daniela, Patient will be medically cleared for dc to home today with services. Patient is active with [facility], who has been made aware of today's dc. IMM was addressed earlier today.
[2023-04-22 11:42] LABS: Folate 9.2 ng/mL (> or = 4.0); Vitamin B12 1830 pg/mL (200-900)
[2023-04-22 11:47] LABS: Glucose, Whole Blood 144 mg/dL (60-115)
[2023-04-22 13:46] LABS: Hematocrit 27.2 % (42.0-52.0); Hemoglobin 7.7 g/dl (14.0-18.0)
--- NOTE | 2023-04-22 16:22 | HO.PM.IMPN ---
Subjective Subjective Date of Service: 04/22/23 Interval History: Follow up on symptomatic anemia, mild chf exacerbation Remains comfortable at rest, maintaining oximetry 98% on home 2L O2. However, desaturating to 80% with ambulation with significant SMART. No lightheadedness, palpitations, chest pain. No syncope. H/H improved to 7.7/27.%. Vitamin b12, folate, iron studies normal, stool occult blood negative Review of Systems Review of Systems: Yes all other systems are reviewed and are negative Physical Exam Vital Signs: Vital Signs: Last Vital Signs Temp 98.4 F 04/22/23 15:34 Pulse 70 04/22/23 15:34 Resp 18 04/22/23 15:34 BP 106/55 L 04/22/23 15:34 Pulse Ox 98 04/22/23 15:34 O2 Del Method Nasal Cannula 04/22/23 15:34 O2 Flow Rate 2 04/22/23 15:34 Oxygen Flow Rate 2 04/21/23 15:30 BMI result Body Mass Index 30.1 Constitutional - Awake and Alert, No apparent distress Eyes - PERRLA, EOMI Cardiovascular - S1S2, RRR, No edema Respiratory - Normal lung expansion, Normal respiratory effort, No respiratory distress, CTA bilaterally Extremities - no calf tenderness bilaterally, no swelling Skin - Warm/Dry Neurological - Alert & oriented x3 Psychological - Appropriate affect Objective Data Active Medications Acetaminophen (Acetaminophen 325 Mg Tablet) 650 mg PO Q6H PRN PRN Reason: Pain, Mild (Pain Scale 1-3) Albuterol Sulfate (Albuterol Sulfate 90 Mcg 8 Gm Inhaler) 1 puff INHALE QID PRN PRN Reason: shortness of breath or wheezing Ascorbic Acid (Ascorbic Acid 500 Mg Tablet) 500 mg PO DAILY [facility] Last Admin: 04/22/23 07:56 Dose: 500 mg Documented By: GT Cyanocobalamin (Cyanocobalamin (Vitamin B-12) 1,000 Mcg Tablet) 1,000 mcg PO DAILY [facility] Last Admin: 04/22/23 07:56 Dose: 1,000 mcg Documented By: GT Dextrose (Dextrose 50 % 25 Gm/50 Ml Syringe) 25 gm IVPUSH Q15M PRN; Protocol PRN Reason: per Hypoglycemia Standing Ord. Digoxin (Digoxin 0.125 Mg Tablet) 0.125 mg PO Q2D [facility] Last Admin: 04/22/23 08:00 Dose: 0.125 mg Documented By: GT Docusate Sodium (Docusate Sodium 100 Mg Capsule) 100 mg PO DAILY PRN PRN Reason: Constipation Ezetimibe (Ezetimibe 10 Mg Tablet) 10 mg PO DAILY [facility] Last Admin: 04/22/23 07:56 Dose: 10 mg Documented By: GT Ferrous Sulfate (Ferrous Sulfate 324 Mg Tablet.Dr) 324 mg PO DAILY [facility] Last Admin: 04/22/23 07:56 Dose: 324 mg Documented By: GT Fluticasone/Vilanterol (Fluticasone/Vilanterol 200/25 Blst.W.Dev) 1 puff INHALE RDAILY [facility] Last Admin: 04/22/23 07:48 Dose: 1 puff Documented By: ANGELA Furosemide (Furosemide 20 Mg/2 Ml Vial) 20 mg IVPUSH DAILY [facility]; Protocol Last Admin: 04/22/23 07:56 Dose: 20 mg Documented By: GT Furosemide (Furosemide 20 Mg/2 Ml Vial) 20 mg IVPUSH ONCE ONE; Protocol Stop: 04/22/23 16:22 Glucose (Glucose Gel 15 Gm Gel..Gram.) 15 gm PO Q15M PRN; Protocol PRN Reason: per Hypoglycemia Standing Ord. Sodium Chloride (Ns) 100 mls @ 100 mls/hr IV ONCE ONE Stop: 04/22/23 17:20 Insulin Human Lispro (Insulin Lispro 100 Unit/Ml 3 Ml Vial) 0 unit SUBCUT QIDACHS [facility]; Protocol Last Admin: 04/22/23 11:53 Dose: Not Given Documented By: GT Non-Admin Reason: No Insulin Coverage Ondansetron HCl (Ondansetron Hcl 4 Mg/2 Ml Vial) 4 mg IVPUSH Q8H PRN PRN Reason: Nausea and Vomiting Pravastatin Sodium (Pravastatin Sodium 80 Mg Tablet) 80 mg PO DAILY [facility] Last Admin: 04/22/23 07:56 Dose: 80 mg Documented By: GT Sodium Chloride (0.9 % Sodium Chloride Flush 3 Ml Syringe) 3 ml IVFLUSH QSHIFT [facility] Last Admin: 04/22/23 07:56 Dose: 3 ml Documented By: GT Tiotropium [place] (Tiotropium [place] 2.5 Mcg 1 Puff/2.5 Mcg Mist.Inhal) 1 puff INHALE RDAILY [facility] Last Admin: 04/22/23 07:48 Dose: 1 puff Documented By: ANGELA Warfarin Sodium (Warfarin Sodium 2.5 Mg Tablet) 2.5 mg PO [id number]@[email or web address] [facility] Warfarin Sodium (Warfarin Sodium 1.25 Mg Halftab) 1.25 mg PO [email or web address]@1800 [facility] Labs 04/22/23 13:30 04/22/23 06:46 Labs: Laboratory Results - last 24 hr 04/21/23 04/21/23 04/21/23 16:14 17:15 18:29 MCV 102.4 H MCH 28.3 MCHC 27.7 L RDW 17.5 H Plt Count 214 MPV 9.7 Immature Gran % (Auto) 0.2 Neut % (Auto) 70.1 Lymph % (Auto) 15.4 L [place] % (Auto) 10.9 Eos % (Auto) 3.0 Baso % (Auto) 0.4 Lymph # (Auto) 0.8 L [place] # (Auto) 0.6 Eos # (Auto) 0.2 Baso # (Auto) 0.0 Abs Immat Gran (auto) 0.01 Absolute Neuts (auto) 3.5 Absolute Nucleated RBC 0.000 Nucleated RBC % (auto) 0.0 PT 19.9 H D INR 1.6 H D Anion Gap 12 Estim Creat Clear Calc 46.2 Estimated GFR 44 POC Glucose Random Glucose 128 H Calcium 9.0 D Iron 168 H TIBC 356 % Saturation 47 Unsat Iron Binding 188 Ferritin 38 Total Bilirubin 0.5 Direct Bilirubin 0.2 AST 23 ALT 13 Alkaline Phosphatase 44 B-Natriuretic Peptide 136 H Total Protein 6.8 Albumin 3.8 Vitamin B12 Folate Stool Occult Blood NEGATIVE Influenza Type A (PCR) NEGATIVE Influenza Type B (PCR) NEGATIVE RSV RNA Qual (PCR) NEGATIVE SARS-CoV-2 RNA (RT-PCR) NEGATIVE Blood Type O Positive Antibody Screen NEGATIVE Crossmatch See Detail 04/21/23 04/22/23 04/22/23 22:41 06:46 06:47 MCV 98.5 H MCH 28.3 MCHC 28.7 L RDW 17.2 H Plt Count 210 MPV 10.4 Immature Gran % (Auto) 0.4 Neut % (Auto) 69.5 Lymph % (Auto) 16.1 L [place] % (Auto) 10.5 Eos % (Auto) 2.9 Baso % (Auto) 0.6 Lymph # (Auto) 0.8 L [place] # (Auto) 0.5 Eos # (Auto) 0.2 Baso # (Auto) 0.0 Abs Immat Gran (auto) 0.02 Absolute Neuts (auto) 3.6 Absolute Nucleated RBC 0.000 Nucleated RBC % (auto) 0.0 PT 18.9 H INR 1.6 H Anion Gap 15 Estim Creat Clear Calc 51.1 Estimated GFR 50 POC Glucose 204 H Random Glucose 83 Calcium 8.8 Iron TIBC % Saturation Unsat Iron Binding Ferritin Total Bilirubin Direct Bilirubin AST ALT Alkaline Phosphatase B-Natriuretic Peptide 139 H Total Protein Albumin Vitamin B12 Folate Stool Occult Blood Influenza Type A (PCR) Influenza Type B (PCR) RSV RNA Qual (PCR) SARS-CoV-2 RNA (RT-PCR) Blood Type Antibody Screen Crossmatch 04/22/23 04/22/23 04/22/23 07:29 10:30 11:14 MCV MCH MCHC RDW Plt Count MPV Immature Gran % (Auto) Neut % (Auto) Lymph % (Auto) [place] % (Auto) Eos % (Auto) Baso % (Auto) Lymph # (Auto) [place] # (Auto) Eos # (Auto) Baso # (Auto) Abs Immat Gran (auto) Absolute Neuts (auto) Absolute Nucleated RBC Nucleated RBC % (auto) PT INR Anion Gap Estim Creat Clear Calc Estimated GFR POC Glucose 91 144 H Random Glucose Calcium Iron TIBC % Saturation Unsat Iron Binding Ferritin Total Bilirubin Direct Bilirubin AST ALT Alkaline Phosphatase B-Natriuretic Peptide Total Protein Albumin Vitamin B12 1830 H Folate 9.2 Stool Occult Blood Influenza Type A (PCR) Influenza Type B (PCR) RSV RNA Qual (PCR) SARS-CoV-2 RNA (RT-PCR) Blood Type Antibody Screen Crossmatch Assessment and Plan (1) CHF exacerbation: Status: Acute (2) Severe anemia: Status: Acute (3) Acute and chronic respiratory failure with hypoxia: Status: Acute Plan 72-year-old male with history of heart failure with preserved ejection fraction, pulmonary hypertension, hypertension, CKD stage 3, COPD with chronic hypoxemic respiratory failure on 2 L supplemental O2 at baseline, [id number] type 2 diabetes, chronic atrial fibrillation anticoagulated with Coumadin and on digoxin, hyperlipidemia, venous insufficiency, and chronic anemia admitted for symptomatic anemia with chf exacerbation and acute on chronic hypoxemic respiratory failure. H/H improved following blood transfusion with plan for discharge. However, patient with significant smart and ambulatory hypoxia to 80% on supplemental O2. # symptomatic anemia -chronic macrocytic anemia baseline -H/H improved to 7.6/26.5 following 1 unit packed red blood cells in the ED. Remained stable throughout the day with recheck H/H 7.7/27.2 -etiology remains unclear. Vitamin B12, folic acid, iron studies normal. Renal function baseline. Suspect mild CHF exacerbation is likely resulting from anemia rather than causing -stool occult blood negative -still with significant dyspnea on exertion with ambulatory hypoxia to 80%. Transfuse 1 additional unit packed red blood cells with 20 mg IV Lasix x1 -Hematology consult placed -follow CBC -monitor on telemetry # acute on chronic hypoxemic respiratory failure secondary to CHF exacerbation -continue supplemental O2 to maintain oximetry 90-92% -wean oxygen to baseline 2 L as tolerated -continues with smatr and ambulatory hypoxia to 80% despite supplemental O2 # CHF exacerbation- likely due to demand from severe anemia -has hfpef at baseline -last echo 12/21- normal LV systolic function with EF 65-70% with severely dilated bilateral atria. Moderately increased right ventricular cavity size with normal RV systolic function. There is moderate tricuspid valve regurgitation and moderate to severe pulmonary hypertension. -give additional 20 mg IV Lasix now (received 20 mg IV Lasix in the ED). Continue 20 mg IV Lasix daily, transition to p.o. as patient improves clinically -cardiac diet -daily weights -strict I&O -follow BNP, BMP # chronic atrial fibrillation- rate controlled -stool occult blood negative. Denies bleeding -INR subtherapeutic at 1.6. Coumadin dose missed yesterday. Resume today -monitor INR daily -continue digoxin # COPD -no acute exacerbation -continue Symbicort, Spiriva -albuterol p.r.n. # [id number]-kezxwzytk type 2 diabetes-without hyperglycemia -POC glucose -diabetic diet -Humalog on sliding scale -hold metformin # HLD -continue statin # CKD stage 3 -renal function baseline DVT prophylaxis-on Coumadin Full code Patient requires ongoing inpatient stay management of severe symptomatic anemia requiring blood transfusion as well as management of CHF exacerbation requiring IV diuresis and close monitoring of renal function and electrolyte levels as well as close monitoring to prevent cardiopulmonary decompensation Quality Stroke Does the patient have a stroke diagnosis?: No VTE Prior VTE?: No VTE Risk Level:: Medical - moderate - high VTE Device Contraindication: Treatment Not Indicated VTE Drug Contraindication: N/A - Med Ordered
[2023-04-22 16:26] LABS: Glucose, Whole Blood 128 mg/dL (60-115)
--- NOTE | 2023-04-22 16:30 | P.CDIM_ITS ---
PROVIDER RESPONSE TEXT: To clarify, the appropriate diagnosis supported by the clinical indicators: Clinically unable to determine (explain): vitamin b12, folic acid, iron levels normal. no acute blood loss. has chronic macrocytic anemia of unclear etiology. hematology evaluation recommended QUERY TEXT: PHYSICIAN'S DOCUMENTATION REQUEST Date of Query: 04/22/2023 08:07 AM EST Patient Name: Kiran aLw Admit Date: 04/21/2023 Dear Daniela Lorenzo, A review of the medical record indicates additional documentation may be needed. Please review below and update the documentation accordingly. Clinical Indicators: H&P: Severe anemia HGB 7.0 HCT 25.3 BP 113/34 Orthopnea - Transfused 1 unit PRBC Based on the above, could you clarify which of the following is the most likely type of anemia you ar e evaluating, treating, and/or monitoring? Acute blood loss anemia Acute blood loss anemia with baseline chronic anemia (specify type) Anemia of chronic disease indicate if neoplastic disease, CKD, or other Chronic iron deficiency anemia due to blood loss Vitamin B12 deficiency anemia indicate etiology, such as intrinsic factor deficiency, malabsorption, transcobalamin II deficiency, dietary, etc Folate deficiency anemia indicate etiology, such as dietary, drug-induced, etc Protein deficiency anemia Other (explain) Clinically unable to determine (explain) Thank you, Arlin Sofia, CCS, CDIS Use of terms such as suspected, likely, concern for, or probable (associated with a specific diagnosi s that is being evaluated, monitored, or treated as if it exists) are acceptable and can be coded in the inpatient se tting, when documented at the time of discharge. Please use your independent medical judgment in providing your response. THIS QUERY IS PART OF THE PERMANENT MEDICAL RECORD
[2023-04-22 16:42] LABS: Lactate Dehydrogenase 174 U/L (118-273)
[2023-04-22] MEDS: Warfarin Sodium 1.25 MG HALFTAB PO (17:49)
[2023-04-22 20:04] LABS: Glucose, Whole Blood 150 mg/dL (60-115)
[2023-04-23 03:36] VITALS: BP 122/65; PULSE 80; RESP 20; TEMP 36.1; O2SAT 97
[2023-04-23] MEDS: Tiotropium Bromide 2.5 mcg 1 PUFF/2.5 MCG MIST.INHAL INHALE (07:29)
[2023-04-23] MEDS: Fluticasone/Vilanterol 200/25 BLST.W.DEV 1 PUFF INHALE (07:29)
[2023-04-23 07:32] VITALS: PULSE 87; RESP 18; O2SAT 92
[2023-04-23 08:00] VITALS: BP 105/58; PULSE 95; RESP 20; TEMP 36.6; O2SAT 90
[2023-04-23 08:13] LABS: Glucose, Whole Blood 123 mg/dL (60-115)
[2023-04-23 08:13] LABS: Hematocrit 29.6 % (42.0-52.0); Hemoglobin 8.5 g/dl (14.0-18.0); Mean Corpuscular HGB Conc 28.7 g/dl (31.0-36.0); Mean Corpuscular Hemoglobin 28.2 pg (27.0-33.0); Mean Corpuscular Volume 98.3 fL (80.0-98.0); Mean Platelet Volume 11.2 fL (9.4-12.4); Platelet Count 155 X10*3/uL (160-400); Red Blood Count 3.01 X10*6/uL (4.60-5.80); Red Cell Distribution Width 17.6 % (11.0-16.0); White Blood Count 6.5 X10*3/uL (4.8-10.8)
[2023-04-23 08:17] LABS: INTERNATIONAL NORM RATIO 1.4 (0.9-1.1); Prothrombin Time 16.7 SEC (11.1-13.3)
[2023-04-23 08:24] LABS: Anion Gap 16 (12-20); Blood Urea Nitrogen 20 mg/dL (9-16); Calcium 9.1 mg/dL (8.4-10.2); Carbon Dioxide 37 mmol/L (22-29); Chloride 95 mmol/L (96-108); Creatinine Clr Calc Pharmacy 45.3; Estimated Glomerular Filt Rate 43; Glucose Random 111 mg/dL (60-115); Potassium 3.8 mmol/L (3.3-5.1); Sodium 144 mmol/L (135-145)
[2023-04-23] MEDS: Pravastatin Sodium 80 MG TABLET PO (08:35)
[2023-04-23] MEDS: Ezetimibe 10 MG TABLET PO (08:35)
[2023-04-23] MEDS: Ascorbic Acid 500 MG TABLET PO (08:35)
[2023-04-23] MEDS: 0.9 % Sodium Chloride Flush 3 ML SYRINGE IVFLUSH ×3 (08:35→22:29)
[2023-04-23] MEDS: Ferrous Sulfate 324 MG TABLET.DR PO (08:35)
[2023-04-23] MEDS: Furosemide 20 MG/2 ML VIAL IVPUSH (08:35)
[2023-04-23] MEDS: Acetaminophen 325 MG TABLET 650 MG PO ×2 (08:35→22:39)
[2023-04-23] MEDS: Cyanocobalamin (Vitamin B-12) 1,000 MCG TABLET 1000 MCG PO (08:35)
[2023-04-23] MEDS: Docusate Sodium 100 MG CAPSULE PO (08:41)
--- NOTE | 2023-04-23 10:37 | HO.PM.IMPN ---
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 Review of Systems Review of Systems: Yes all other systems are reviewed and are negative Constitutional Constitutional: Denies chills and Denies fever(s) Cardiovascular Cardiovascular: Denies chest pain, Denies palpitations, Denies dyspnea and Reports dyspnea on exertion Respiratory Respiratory: Denies dyspnea and Reports dyspnea on exertion Gastrointestinal Gastrointestinal: Denies abdominal pain Endocrine Endocrine: Denies palpitations Physical Exam Vital Signs: Vital Signs: Last Vital Signs Temp 97.8 F 04/23/23 08:00 Pulse 95 04/23/23 08:00 Resp 20 04/23/23 08:00 BP 105/58 L 04/23/23 08:00 Pulse Ox 90 L 04/23/23 08:00 O2 Del Method Nasal Cannula 04/23/23 08:00 O2 Flow Rate 2 04/23/23 08:00 Oxygen Flow Rate 2 04/21/23 15:30 BMI result Body Mass Index 30.1 Const: General: cooperative, comfortable, no acute distress, alert and awake Nutritional Appearance: overweight Orientation/consciousness: patient oriented x3 Resp: Other: dim no crackles, no wheezes Effort & Inspection: normal respiratory effort, no respiratory distress and no use of accessory muscles GI: Palpation (GI): Soft to palpation Neuro: Other: grossly nonfocal General: patient oriented x3 Extrem: General: Yes no pedal edema Objective Data Active Medications Acetaminophen (Acetaminophen 325 Mg Tablet) 650 mg PO Q6H PRN PRN Reason: Pain, Mild (Pain Scale 1-3) Last Admin: 04/23/23 08:35 Dose: 650 mg Documented By: CHARLEEN Albuterol Sulfate (Albuterol Sulfate 90 Mcg 8 Gm Inhaler) 1 puff INHALE QID PRN PRN Reason: shortness of breath or wheezing Ascorbic Acid (Ascorbic Acid 500 Mg Tablet) 500 mg PO DAILY [facility] Last Admin: 04/23/23 08:35 Dose: 500 mg Documented By: CHARLEEN Cyanocobalamin (Cyanocobalamin (Vitamin B-12) 1,000 Mcg Tablet) 1,000 mcg PO DAILY [facility] Last Admin: 04/23/23 08:35 Dose: 1,000 mcg Documented By: CHARLEEN Dextrose (Dextrose 50 % 25 Gm/50 Ml Syringe) 25 gm IVPUSH Q15M PRN; Protocol PRN Reason: per Hypoglycemia Standing Ord. Digoxin (Digoxin 0.125 Mg Tablet) 0.125 mg PO Q2D [facility] Last Admin: 04/22/23 08:00 Dose: 0.125 mg Documented By: GT Docusate Sodium (Docusate Sodium 100 Mg Capsule) 100 mg PO DAILY PRN PRN Reason: Constipation Last Admin: 04/23/23 08:41 Dose: 100 mg Documented By: CHARLEEN Ezetimibe (Ezetimibe 10 Mg Tablet) 10 mg PO DAILY [facility] Last Admin: 04/23/23 08:35 Dose: 10 mg Documented By: CHARLEEN Ferrous Sulfate (Ferrous Sulfate 324 Mg Tablet.Dr) 324 mg PO DAILY [facility] Last Admin: 04/23/23 08:35 Dose: 324 mg Documented By: CHARLEEN Fluticasone/Vilanterol (Fluticasone/Vilanterol 200/25 Blst.W.Dev) 1 puff INHALE RDAILY [facility] Last Admin: 04/23/23 07:29 Dose: 1 puff Documented By: CHAYO Furosemide (Furosemide 20 Mg/2 Ml Vial) 20 mg IVPUSH DAILY [facility]; Protocol Last Admin: 04/23/23 08:35 Dose: 20 mg Documented By: CHARLEEN Glucose (Glucose Gel 15 Gm Gel..Gram.) 15 gm PO Q15M PRN; Protocol PRN Reason: per Hypoglycemia Standing Ord. Insulin Human Lispro (Insulin Lispro 100 Unit/Ml 3 Ml Vial) 0 unit SUBCUT QIDACHS [facility]; Protocol Last Admin: 04/23/23 08:34 Dose: Not Given Documented By: CHARLEEN Non-Admin Reason: No Insulin Coverage Ondansetron HCl (Ondansetron Hcl 4 Mg/2 Ml Vial) 4 mg IVPUSH Q8H PRN PRN Reason: Nausea and Vomiting Pravastatin Sodium (Pravastatin Sodium 80 Mg Tablet) 80 mg PO DAILY [facility] Last Admin: 04/23/23 08:35 Dose: 80 mg Documented By: CHARLEEN Sodium Chloride (0.9 % Sodium Chloride Flush 3 Ml Syringe) 3 ml IVFLUSH QSHIFT [facility] Last Admin: 04/23/23 08:35 Dose: 3 ml Documented By: CHARLEEN Tiotropium Dietrich (Tiotropium Dietrich 2.5 Mcg 1 Puff/2.5 Mcg Mist.Inhal) 1 puff INHALE RDAILY [facility] Last Admin: 04/23/23 07:29 Dose: 1 puff Documented By: CHAYO Warfarin Sodium (Warfarin Sodium 5 Mg Tablet) 5 mg PO DAILY@1800 [facility] Labs 04/23/23 08:03 04/23/23 08:03 Labs: Laboratory Results - last 24 hr 04/21/23 04/22/23 04/22/23 17:15 10:30 11:14 MCV MCH MCHC RDW Plt Count MPV Absolute Nucleated RBC Nucleated RBC % (auto) PT INR Anion Gap Estim Creat Clear Calc Estimated GFR POC Glucose 144 H Random Glucose Calcium Lactate Dehydrogenase 174 Vitamin B12 1830 H Folate 9.2 Blood Type O Positive Antibody Screen NEGATIVE Crossmatch See Detail 04/22/23 04/22/23 04/23/23 16:16 19:58 08:03 MCV 98.3 H MCH 28.2 MCHC 28.7 L RDW 17.6 H Plt Count 155 L D MPV 11.2 Absolute Nucleated RBC 0.000 Nucleated RBC % (auto) 0.0 PT 16.7 H INR 1.4 H Anion Gap 16 Estim Creat Clear Calc 45.3 Estimated GFR 43 POC Glucose 128 H 150 H Random Glucose 111 Calcium 9.1 Lactate Dehydrogenase Vitamin B12 Folate Blood Type Antibody Screen Crossmatch 04/23/23 08:10 MCV MCH MCHC RDW Plt Count MPV Absolute Nucleated RBC Nucleated RBC % (auto) PT INR Anion Gap Estim Creat Clear Calc Estimated GFR POC Glucose 123 H Random Glucose Calcium Lactate Dehydrogenase Vitamin B12 Folate Blood Type Antibody Screen Crossmatch Assessment and Plan (1) Acute and chronic respiratory failure with hypoxia: Status: Acute (2) Severe anemia: Status: Acute (3) CHF exacerbation: Status: Acute Plan 72-year-old male with history of heart failure with preserved ejection fraction, pulmonary hypertension, hypertension, CKD stage 3, COPD with chronic hypoxemic respiratory failure on 2 L supplemental O2 at baseline, [id number] type 2 diabetes, chronic atrial fibrillation anticoagulated with Coumadin and on digoxin, hyperlipidemia, venous insufficiency, and chronic anemia admitted for symptomatic anemia with chf exacerbation and acute on chronic hypoxemic respiratory failure. H/H improved following blood transfusion with plan for discharge. However, patient with significant hudson and ambulatory hypoxia to 80% on supplemental O2. # symptomatic anemia chronic macrocytic anemia baseline s/p 2U RBC with improvement in H/H, now 8.5/29.6 Vitamin B12, folic acid, iron studies normal. LDH, bili wnl less likely hemolysis stool occult blood negative -Hematology consult pending -follow CBC #thrombocytopenia likely dilutional r/t blood transfusions # acute on chronic hypoxemic respiratory failure secondary to CHF exacerbation continue supplemental O2 to maintain 02 sat 90-92%; currently on baseline 2 L -continues with hudson and ambulatory hypoxia to 80% despite supplemental O2 # Acute exacerbation of HFpEF - likely due to demand from severe anemia last echo 12/21- normal LV systolic function with EF 65-70% with severely dilated bilateral atria. Moderately increased right ventricular cavity size with normal RV systolic function. There is moderate tricuspid valve regurgitation and moderate to severe pulmonary hypertension. overall net negative on this admission has been receiving 20 mg IV Lasix daily, but on torsemide 40 bid at baseline. transition to p.o. as patient improves clinically BNP low -follow I&Os, BMP #CKD3 creatinine going up and down, now trending up follow BMP # chronic atrial fibrillation- rate controlled -stool occult blood negative. Denies bleeding -INR subtherapeutic at 1.4. Coumadin dose missed 04/21, still subtherapeutic -will increase dose to 5mg today -monitor INR daily -continue digoxin # COPD -no acute exacerbation -continue Symbicort, Spiriva -albuterol p.r.n. # [id number]-djkryqhmx type 2 diabetes-without hyperglycemia -POC glucose -diabetic diet -Humalog on sliding scale -hold metformin # HLD -continue statin # CKD stage 3 -renal function baseline DVT prophylaxis-on Coumadin Full code attending - Dr. Espinal Patient requires ongoing inpatient stay management of severe symptomatic anemia as well as management of CHF exacerbation requiring IV diuresis and close monitoring of renal function and electrolyte levels as well as close monitoring to prevent cardiopulmonary decompensation Quality Stroke Does the patient have a stroke diagnosis?: No VTE Prior VTE?: No VTE Risk Level:: Medical - moderate - high VTE Device Contraindication: Treatment Not Indicated VTE Drug Contraindication: N/A - Med Ordered
[2023-04-23 11:02] VITALS: BP 104/56; PULSE 71; RESP 20; TEMP 36.7; O2SAT 94
[2023-04-23 11:29] LABS: Glucose, Whole Blood 161 mg/dL (60-115)
[2023-04-23] MEDS: Insulin Lispro 100 UNIT/ML 3 ML VIAL SUBCUT ×2 (12:19→22:28)
[2023-04-23 16:00] VITALS: BP 124/66; PULSE 78; RESP 16; TEMP 37; O2SAT 91
[2023-04-23 16:15] LABS: Glucose, Whole Blood 117 mg/dL (60-115)
[2023-04-23] MEDS: Warfarin Sodium 5 MG TABLET PO (17:36)
[2023-04-23 20:00] VITALS: BP 117/52; PULSE 86; RESP 19; TEMP 36.5; O2SAT 95
[2023-04-23 20:38] LABS: Glucose, Whole Blood 158 mg/dL (60-115)
[2023-04-23] MEDS: Torsemide 20 MG TABLET 40 MG PO (22:29)
[2023-04-24] VITALS (7 sets, daily range): BP systolic 104–126; BP diastolic 53–59; PULSE 68–85; RESP 16–20; TEMP 36.2–36.8; O2SAT 92–97
[2023-04-24 07:44] LABS: INTERNATIONAL NORM RATIO 1.4 (0.9-1.1); Prothrombin Time 16.9 SEC (11.1-13.3)
[2023-04-24 07:46] LABS: Glucose, Whole Blood 92 mg/dL (60-115)
[2023-04-24 07:55] LABS: Anion Gap 13 (12-20); Blood Urea Nitrogen 22 mg/dL (9-16); Calcium 8.6 mg/dL (8.4-10.2); Carbon Dioxide 38 mmol/L (22-29); Chloride 96 mmol/L (96-108); Creatinine Clr Calc Pharmacy 42.1; Estimated Glomerular Filt Rate 40; Glucose Random 99 mg/dL (60-115); Magnesium 2.4 mg/dL (1.6-2.6); Potassium 3.6 mmol/L (3.3-5.1); Sodium 143 mmol/L (135-145)
[2023-04-24] MEDS: Ascorbic Acid 500 MG TABLET PO (08:01)
[2023-04-24] MEDS: Ferrous Sulfate 324 MG TABLET.DR PO (08:01)
[2023-04-24] MEDS: Docusate Sodium 100 MG CAPSULE PO (08:01)
[2023-04-24] MEDS: Cyanocobalamin (Vitamin B-12) 1,000 MCG TABLET 1000 MCG PO (08:02)
[2023-04-24] MEDS: 0.9 % Sodium Chloride Flush 3 ML SYRINGE IVFLUSH ×3 (08:02→21:45)
[2023-04-24] MEDS: Ezetimibe 10 MG TABLET PO (08:02)
[2023-04-24] MEDS: Pravastatin Sodium 80 MG TABLET PO (08:02)
[2023-04-24] MEDS: Torsemide 20 MG TABLET 40 MG PO ×2 (08:02→21:42)
[2023-04-24] MEDS: Fluticasone/Vilanterol 200/25 BLST.W.DEV 1 PUFF INHALE (08:17)
[2023-04-24] MEDS: Tiotropium Bromide 2.5 mcg 1 PUFF/2.5 MCG MIST.INHAL INHALE (08:17)
[2023-04-24 08:56] LABS: B Type Natriuretic Peptide 122 pg/mL (<100)
[2023-04-24] MEDS: Digoxin 0.125 MG TABLET PO (10:23)
--- NOTE | 2023-04-24 10:34 | HO.SKINPHOTO ---
Location: Category: Stage: Length: Width: Depth: cm Location: Category: Stage: Length: Width: Depth: cm Location: Category: Stage: Length: Width: Depth: cm Location: Category: Stage: Length: Width: Depth: cm Location: Category: Stage: Length: Width: Depth: cm Location: Category: Stage: Length: Width: Depth:
[2023-04-24 11:27] LABS: Glucose, Whole Blood 146 mg/dL (60-115)
--- NOTE | 2023-04-24 12:40 | MHC.CM.PN ---
Emr reviewed, per hospitalist pt not yet cleared for dc, hvna updated via [facility] and cm will cont to follow dc needs.
--- NOTE | 2023-04-24 14:41 | P.PNIM_ITS ---
Subjective Subjective Date of Service: 04/24/23 Interval History: seen and examined this morning follow up for anemia, CHF breathing better, no sob has not been ambulating Review of Systems Review of Systems: Yes all other systems are reviewed and are negative Constitutional Constitutional: Denies chills and Denies fever(s) Cardiovascular Cardiovascular: Denies chest pain, Denies palpitations and Denies dyspnea Respiratory Respiratory: Denies cough and Denies dyspnea Gastrointestinal Gastrointestinal: Denies abdominal pain Endocrine Endocrine: Denies palpitations Physical Exam 2 Vital Signs: Vital Signs: Last Vital Signs Temp 98.2 F 04/24/23 11:01 Pulse 73 04/24/23 11:01 Resp 16 04/24/23 11:01 BP 112/57 L 04/24/23 11:01 Pulse Ox 97 04/24/23 11:01 O2 Del Method Nasal Cannula 04/24/23 11:01 O2 Flow Rate 2 04/24/23 11:01 Oxygen Flow Rate 2 04/21/23 15:30 BMI result Body Mass Index 30.1 Const: General: cooperative, comfortable, no acute distress, alert and awake Nutritional Appearance: overweight Orientation/consciousness: patient oriented x3 Resp: Other: dim no crackles, no wheezes Effort & Inspection: normal respiratory effort, no respiratory distress and no use of accessory muscles GI: Palpation (GI): Soft to palpation Neuro: Other: grossly nonfocal General: patient oriented x3 Extrem: General: Yes no pedal edema Objective Data Active Medications Acetaminophen (Acetaminophen 325 Mg Tablet) 650 mg PO Q6H PRN PRN Reason: Pain, Mild (Pain Scale 1-3) Last Admin: 04/23/23 22:39 Dose: 650 mg Documented By: FERNANDO Albuterol Sulfate (Albuterol Sulfate 90 Mcg 8 Gm Inhaler) 1 puff INHALE QID PRN PRN Reason: shortness of breath or wheezing Ascorbic Acid (Ascorbic Acid 500 Mg Tablet) 500 mg PO DAILY [facility] Last Admin: 04/24/23 08:01 Dose: 500 mg Documented By: CHARLEEN Cyanocobalamin (Cyanocobalamin (Vitamin B-12) 1,000 Mcg Tablet) 1,000 mcg PO DAILY [facility] Last Admin: 04/24/23 08:02 Dose: 1,000 mcg Documented By: CHARLEEN Dextrose (Dextrose 50 % 25 Gm/50 Ml Syringe) 25 gm IVPUSH Q15M PRN; Protocol PRN Reason: per Hypoglycemia Standing Ord. Digoxin (Digoxin 0.125 Mg Tablet) 0.125 mg PO Q2D [facility] Last Admin: 04/24/23 10:23 Dose: 0.125 mg Documented By: CHARLEEN Docusate Sodium (Docusate Sodium 100 Mg Capsule) 100 mg PO DAILY PRN PRN Reason: Constipation Last Admin: 04/24/23 08:01 Dose: 100 mg Documented By: CHARLEEN Ezetimibe (Ezetimibe 10 Mg Tablet) 10 mg PO DAILY [facility] Last Admin: 04/24/23 08:02 Dose: 10 mg Documented By: CHARLEEN Ferrous Sulfate (Ferrous Sulfate 324 Mg Tablet.Dr) 324 mg PO DAILY [facility] Last Admin: 04/24/23 08:01 Dose: 324 mg Documented By: CHARLEEN Fluticasone/Vilanterol (Fluticasone/Vilanterol 200/25 Blst.W.Dev) 1 puff INHALE RDAILY [facility] Last Admin: 04/24/23 08:17 Dose: 1 puff Documented By: CHAYO Glucose (Glucose Gel 15 Gm Gel..Gram.) 15 gm PO Q15M PRN; Protocol PRN Reason: per Hypoglycemia Standing Ord. Insulin Human Lispro (Insulin Lispro 100 Unit/Ml 3 Ml Vial) 0 unit SUBCUT QIDACHS [facility]; Protocol Last Admin: 04/24/23 11:32 Dose: Not Given Documented By: CHARLEEN Non-Admin Reason: No Insulin Coverage Ondansetron HCl (Ondansetron Hcl 4 Mg/2 Ml Vial) 4 mg IVPUSH Q8H PRN PRN Reason: Nausea and Vomiting Pravastatin Sodium (Pravastatin Sodium 80 Mg Tablet) 80 mg PO DAILY [facility] Last Admin: 04/24/23 08:02 Dose: 80 mg Documented By: CHARLEEN Sodium Chloride (0.9 % Sodium Chloride Flush 3 Ml Syringe) 3 ml IVFLUSH QSHIFT [facility] Last Admin: 04/24/23 08:02 Dose: 3 ml Documented By: CHARLEEN Tiotropium Tyler (Tiotropium Tyler 2.5 Mcg 1 Puff/2.5 Mcg Mist.Inhal) 1 puff INHALE RDAILY [facility] Last Admin: 04/24/23 08:17 Dose: 1 puff Documented By: CHAYO Torsemide (Torsemide 20 Mg Tablet) 40 mg PO BID [facility]; Protocol Last Admin: 04/24/23 08:02 Dose: 40 mg Documented By: CHARLEEN Warfarin Sodium (Warfarin Sodium 5 Mg Tablet) 5 mg PO DAILY@1800 [facility] Last Admin: 04/23/23 17:36 Dose: 5 mg Documented By: CHARLEEN Labs 04/23/23 08:03 04/24/23 07:23 Labs: Laboratory Results - last 24 hr 04/23/23 04/23/23 04/24/23 16:11 20:26 07:23 Hold Purple Top SEE NOTE PT 16.9 H INR 1.4 H Anion Gap 13 Estim Creat Clear Calc 42.1 Estimated GFR 40 POC Glucose 117 H 158 H Random Glucose 99 Calcium 8.6 Magnesium 2.4 B-Natriuretic Peptide 122 H 04/24/23 04/24/23 07:39 11:17 Hold Purple Top PT INR Anion Gap Estim Creat Clear Calc Estimated GFR POC Glucose 92 146 H Random Glucose Calcium Magnesium B-Natriuretic Peptide Assessment and Plan (1) Severe anemia: Status: Acute (2) CHF exacerbation: Status: Acute Plan 72-year-old male with history of heart failure with preserved ejection fraction, pulmonary hypertension, hypertension, CKD stage 3, COPD with chronic hypoxemic respiratory failure on 2 L supplemental O2 at baseline, [id number] type 2 diabetes, chronic atrial fibrillation anticoagulated with Coumadin and on digoxin, hyperlipidemia, venous insufficiency, and chronic anemia admitted for symptomatic anemia with chf exacerbation and acute on chronic hypoxemic respiratory failure. H/H improved following blood transfusion with plan for discharge. However, patient with significant hudson and ambulatory hypoxia to 80% on supplemental O2. # symptomatic anemia chronic macrocytic anemia baseline s/p 2U RBC with improvement in H/H, now 8.5/29.6 Vitamin B12, folic acid, iron studies normal. LDH, bili wnl less likely hemolysis stool occult blood negative -Hematology consult pending #thrombocytopenia likely dilutional r/t blood transfusions # acute on chronic hypoxemic respiratory failure secondary to CHF exacerbation continue supplemental O2 to maintain 02 sat 90-92%; currently on baseline 2 L # Acute exacerbation of HFpEF - likely due to demand from severe anemia last echo 12/21- normal LV systolic function with EF 65-70% with severely dilated bilateral atria. Moderately increased right ventricular cavity size with normal RV systolic function. There is moderate tricuspid valve regurgitation and moderate to severe pulmonary hypertension. overall net negative on this admission has been receiving 20 mg IV Lasix daily, but on torsemide 40 bid at baseline, will transition back to home dose of torsemide #CKD3 creatinine going up and down follow BMP in am # chronic atrial fibrillation- rate controlled -stool occult blood negative. Denies bleeding -INR subtherapeutic at 1.4. Coumadin dose missed 04/21, still subtherapeutic -dose increased to 5mg today -monitor INR daily -continue digoxin # COPD -no acute exacerbation -continue Symbicort, Spiriva -albuterol p.r.n. # [id number]-lfiqigjxn type 2 diabetes-without hyperglycemia -POC glucose -diabetic diet -Humalog on sliding scale -hold metformin # HLD -continue statin # CKD stage 3 -renal function baseline DVT prophylaxis-on Coumadin Full code attending - Dr. Espinal dispo - PT eval pending Patient requires ongoing inpatient stay management of severe symptomatic anemia close monitoring of renal function and electrolyte levels as well as close monitoring to prevent cardiopulmonary decompensation Quality Stroke Does the patient have a stroke diagnosis?: No VTE Prior VTE?: No VTE Risk Level:: Medical - moderate - high VTE Device Contraindication: Treatment Not Indicated VTE Drug Contraindication: N/A - Med Ordered
--- NOTE | 2023-04-24 16:04 | PM.HEMONCCN ---
Subjective - Subjective Chief complaint: Consult for: Macrocytic Anemia. Patient: new to practice Consult date: 04/24/23 Requesting Physician: Marry. Primary Care Provider: Grayson Berrios DO, MD Medical Summary: DIAGNOSIS: MACROCYTIC ANEMIA. HPI - Consult Narrative Reason for consult: Consult for: macrocytic Anemia. Narrative: Kiran Law is a 72 year old genteleman, presented to the hospital on 04/22. He was referred by cardiology on account of SOB on exertion and hypoxia. O 2 sat: 83%. CBC: WBC , HGB 7, HCT 25.3, MCV 102. BUN 23 , CRT1.55 at baseline. He recieved 2 PRBCs. HISTORY OF PRESENT ILLNESS: Pt. has a history of heart failure with preserved ejection fraction, pulmonary hypertension, hypertension, CKD stage 3, COPD with chronic hypoxemic respiratory failure on 2 L supplemental O2 at baseline, [id number]-yqlmirujw type 2 diabetes, chronic atrial fibrillation anticoagulated with Coumadin and on digoxin, hyperlipidemia, venous insufficiency, and chronic anemia. He presented to the ED from Cardiology office for evaluation of dyspnea on exertion and acute hypoxia. He states that he has been having progressively worsening dyspnea on exertion over the last 3 weeks as well as orthopnea. Denies any PND. He measures his weight daily and says the weights have been stable between 197-199. He did note increased edema in the bilateral lower extremities. Reports compliance with diuretics. No recent illness. No fevers, chills, abdominal pain, nausea, vomiting, diarrhea, melena, hematochezia, epistaxis, significant bruising, lightheadedness, headaches, or chest pains. Here,he was hypoxic to 83%, supplemental O2 increased to 3 L then maintaining oximetry 94-98%. Vitals otherwise stable. DATA BASE: No leukocytosis. H/H 7.0/25.3%, MCV 102.4. INR 1.6. Renal function consistent with baseline, electrolyte levels normal except for CO2 42 also consistent with baseline. Glucose 128. Iron panel, vitamin B12, folic acid levels pending. Troponin within normal limits. BNP 136, baseline around 62. Stool occult blood negative. Negative for influenza, RSV, COVID-19. Chest x-ray shows mild cardiomegaly and hyper inflated lungs without acute process. EKG shows atrial fibrillation with PVCs and nonspecific T ST abnormality, rate 62. In the ED, he was been diuresed with 20 mg IV Lasix and was transfused 1 unit packed red blood cells. Review of Systems Review of Systems: General: No fevers, malaise, unintentional weight loss HEENT: No blurred vision, diplopia. No sore throat, nasal congestion, rhinorrhea, sinus pain, ear pain Cardiovascular: No chest pain, palpitations. +ble edema Respiratory: +hudson. No shortness of breath at rest, wheezing, cough GI: No abdominal pain, nausea, vomiting, diarrhea, constipation, melena, hematochezia : No dysuria, hematuria, increased urinary frequency, decreased urinary output MSK: No myalgia, back pain Neuro: No headaches, weakness, paresthesias Skin: No rashes or lesions [facility] Medical History: CHF (congestive heart failure) Chronic a-fib Partial small bowel obstruction Anemia Diabetes mellitus CKD (chronic kidney disease) HTN (hypertension) Biatrial enlargement Pulmonary hypertension Chronic heart failure with preserved ejection fraction (HFpEF) HLD (hyperlipidemia) Current use of anticoagulant therapy PMH: 1. CHF. 2. At. FIB: on anticoagulation with coumadin. 3. HTN. 4. HTN. 5. COPD. 6. CKD Stage III. 7. DM. 8. Hyperlidemia. 9. Venous Insufficiency. 10.Chronic Anemia. Family History: Father due to Cancer Mother . 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 He is . He has 3 children. He used to smoke a pack-a-day quit 12 years ago. He used to drink heavily quit 12 years ago as well. Review of Systems - Constitutional Reports system reviewed and no additional complaints, except as documented, Reports fatigue, Reports lack of energy, Reports malaise, Reports weakness - Eyes Reports system reviewed and no additional complaints, except as documented - ENT Reports system reviewed and no additional complaints, except as documented - Cardiovascular Reports system reviewed and no additional complaints, except as documented - Respiratory Reports no additional respiratory complaints - Gastrointestinal Reports system reviewed and no additional complaints, except as documented - Genitourinary Genitourinary: Reports no additional male genitourinary complaints - Musculoskeletal Reports system reviewed and no additional complaints, except as documented - Integumentary/Breasts Skin/Breast: Reports no additional skin complaints - Neurologic Reports system reviewed and no additional complaints, except as documented - Psychiatric Reports system reviewed and no additional complaints, except as documented - Endocrine Reports no additional endocrine complaints - Hematologic/Lymphatic Reports system reviewed and no additional complaints, except as documented - Allergic/Immunologic Reports system reviewed and no additional complaints, except as documented Oncology Screenings - ECOG Performance Status ECOG Performance Status: 2 [facility] Medical History: Medical History (Last Reviewed 04/21/23 @ 19:11 by JULIANNE Martin) Anemia Biatrial enlargement CHF (congestive heart failure) Chronic a-fib Chronic heart failure with preserved ejection fraction (HFpEF) CKD (chronic kidney disease) Current use of anticoagulant therapy Diabetes mellitus HLD (hyperlipidemia) HTN (hypertension) Macrocytic anemia Partial small bowel obstruction Pulmonary hypertension Functional capacity: wheelchair bound Patient : No Family History: Family History (Last Reviewed 04/21/23 @ 19:11 by JULIANNE Martin) Father Cancer Mother No problems noted. Surgical History: Surgical History (Last Reviewed 04/21/23 @ 19:11 by JULIANNE Martin) History of nephrectomy Hx of hernia repair Social History: Social History (Last Reviewed 04/21/23 @ 19:11 by JULIANNE Martin) Living Situation History: Household Members: Spouse Housing: House Do you presently have visiting nurse or other home services: No Tobacco History: Patient Tobacco Use Status: Former Tobacco user Second Hand Smoke Exposure: No Occupation Assessmet: service: No Home Medications and Allergies Current Medications: Current Medications Acetaminophen (Acetaminophen 325 Mg Tablet) 650 mg PO Q6H PRN PRN Reason: Pain, Mild (Pain Scale 1-3) Last Admin: 04/23/23 22:39 Dose: 650 mg Albuterol Sulfate (Albuterol Sulfate 90 Mcg 8 Gm Inhaler) 1 puff INHALE QID PRN PRN Reason: shortness of breath or wheezing Ascorbic Acid (Ascorbic Acid 500 Mg Tablet) 500 mg PO DAILY [facility] Last Admin: 04/24/23 08:01 Dose: 500 mg Cyanocobalamin (Cyanocobalamin (Vitamin B-12) 1,000 Mcg Tablet) 1,000 mcg PO DAILY [facility] Last Admin: 04/24/23 08:02 Dose: 1,000 mcg Dextrose (Dextrose 50 % 25 Gm/50 Ml Syringe) 25 gm IVPUSH Q15M PRN; Protocol PRN Reason: per Hypoglycemia Standing Ord. Digoxin (Digoxin 0.125 Mg Tablet) 0.125 mg PO Q2D [facility] Last Admin: 04/24/23 10:23 Dose: 0.125 mg Docusate Sodium (Docusate Sodium 100 Mg Capsule) 100 mg PO DAILY PRN PRN Reason: Constipation Last Admin: 04/24/23 08:01 Dose: 100 mg Ezetimibe (Ezetimibe 10 Mg Tablet) 10 mg PO DAILY [facility] Last Admin: 04/24/23 08:02 Dose: 10 mg Ferrous Sulfate (Ferrous Sulfate 324 Mg Tablet.Dr) 324 mg PO DAILY [facility] Last Admin: 04/24/23 08:01 Dose: 324 mg Fluticasone/Vilanterol (Fluticasone/Vilanterol 200/25 Blst.W.Dev) 1 puff INHALE RDAILY [facility] Last Admin: 04/24/23 08:17 Dose: 1 puff Glucose (Glucose Gel 15 Gm Gel..Gram.) 15 gm PO Q15M PRN; Protocol PRN Reason: per Hypoglycemia Standing Ord. Insulin Human Lispro (Insulin Lispro 100 Unit/Ml 3 Ml Vial) 0 unit SUBCUT QIDACHS [facility]; Protocol Last Admin: 04/24/23 11:32 Dose: Not Given Ondansetron HCl (Ondansetron Hcl 4 Mg/2 Ml Vial) 4 mg IVPUSH Q8H PRN PRN Reason: Nausea and Vomiting Pravastatin Sodium (Pravastatin Sodium 80 Mg Tablet) 80 mg PO DAILY [facility] Last Admin: 04/24/23 08:02 Dose: 80 mg Sodium Chloride (0.9 % Sodium Chloride Flush 3 Ml Syringe) 3 ml IVFLUSH QSHIFT [facility] Last Admin: 04/24/23 08:02 Dose: 3 ml Tiotropium [place] (Tiotropium [place] 2.5 Mcg 1 Puff/2.5 Mcg Mist.Inhal) 1 puff INHALE RDAILY [facility] Last Admin: 04/24/23 08:17 Dose: 1 puff Torsemide (Torsemide 20 Mg Tablet) 40 mg PO BID [facility]; Protocol Last Admin: 04/24/23 08:02 Dose: 40 mg Warfarin Sodium (Warfarin Sodium 5 Mg Tablet) 5 mg PO DAILY@1800 [facility] Last Admin: 04/23/23 17:36 Dose: 5 mg Home Medications Medication Instructions Recorded Confirmed Type ascorbic acid (vitamin C) 500 mg 500 mg PO DAILY 05/01/20 04/30/23 History tablet budesonide-formoterol HFA 160 2 puff PO BID 05/01/20 04/30/23 History mcg-4.5 mcg/actuation aerosol inhaler ezetimibe 10 mg tablet 10 mg PO DAILY 05/01/20 04/30/23 History ferrous sulfate 325 mg (65 mg 325 mg PO DAILY 05/01/20 04/30/23 History iron) tablet metformin 500 mg tablet 500 mg PO BIDWM 05/01/20 04/30/23 History tiotropium bromide 18 mcg capsule 18 mcg PO DAILY 05/01/20 04/30/23 History with inhalation device albuterol sulfate 90 mcg/actuation 1 inh inhalation QID PRN shortness 11/10/22 04/30/23 History aerosol inhaler of breath or wheezing cyanocobalamin (vitamin B-12) 1,000 mcg PO DAILY 12/15/22 04/30/23 History 1,000 mcg tablet warfarin 2.5 mg tablet 2.5 mg PO DAILY 04/03/23 04/30/23 History Allergies Allergy/AdvReac Type Severity Reaction Status Date / Time No Known Allergies Allergy Verified 04/30/23 14:20 Physical Exam Vital signs: Vital Signs Temp 97.2 F 04/24/23 15:46 Pulse 71 04/24/23 15:46 Resp 16 04/24/23 15:46 BP 108/59 L 04/24/23 15:46 Pulse Ox 96 04/24/23 15:46 O2 Del Method Nasal Cannula 04/24/23 15:46 O2 Flow Rate 2 04/24/23 15:46 Intake & Output 04/23/23 04/24/23 04/24/23 18:59 06:59 18:59 Intake Total 360 / 960 600 / 960 360 / 360 Output Total 700 / 1250 550 / 1250 400 / 400 Balance -340 / -290 50 / -290 -40 / -40 Urine Output (Average ml/kg/hr) 0.65 0.51 0.37 Intake: Intake, Oral Amount 360 / 960 600 / 960 360 / 360 Output: Output, Urine Amount 700 / 1250 550 / 1250 400 / 400 Other: Breakfast % Eaten 75% 75% Lunch % Eaten 75% 75% Number of Incontinent Voids 1 Number of Bowel Movements 0 0 Urine Urinal Urinal Urinal Urine Color Yellow Yellow Last Bowel Movement 04/20/23 04/21/23 04/21/23 Weight 89.811 kg - Constitutional Present: mild distress - Routine HEENT Exam Head: Present: normal inspection, normocephalic ENT: Present: mucous membranes moist - Routine Respiratory Exam Present: CTAB - Routine Cardiovascular Exam Cardiovascular: Present: RRR, S1, S2 - Routine Abdominal Exam Present: soft, nontender - Routine Extremities Exam Present: normal inspection - Routine Skin Exam Present: intact - Routine Neurological Exam Present: alert, oriented X3 - Routine Psychiatric Exam Present: normal affect Hem/Onc Consult Result - Labs CBC & Chem 7: 04/27/23 06:29 04/27/23 06:29 Labs: BMP 04/24/23 07:23 Sodium 143 Potassium 3.6 Chloride 96 Carbon Dioxide 38 H BUN 22 H Creatinine 1.70 H Calcium 8.6 Assessment and Plan Patient Active problem list reviewed?: Yes (1) Macrocytic anemia Status: Inactive Assessment and plan: This is a pleasant 72 year old gentleman, with H/O CHF, At [facility], on Coumadin. He presented with dyspnea on exertion and hypoxia. He was noted to be rather anemic. DIFFERENTIAL DIAGNOSIS: 1. B12/FOLATE DEFICIENCY: However B12/folate are normal. 2. ANEMIA OF CHRONIC DISEASE: relatedto stage III kidney disease. 3. COMBINED ANEMIA WITH ASSOCIATED IRON DEFICIENCY: iron studies are not low, stool for gauiac is negative. 4. HEMOLYTIC ANEMIA: Is in the differential. LDH is normal:174. 5. UNDERLYING MYELOINFILTRATIVE DISORDER: MDS, vs Multiple Myeloma vs Lymphoma. His H&H has stabilized after he received 2 units of packed RBCs. His CHF is being treated by diuresis. He was on Lasix now switched over to torsemide. PLAN: Will proceed with further evaluation. Check SIEP: Normal pattern. Can give a trial of Procrit therapy, considering CKD and MDS. Give 10,000 units thursday, thursday and thursday. Follow blood count, carefully. Thanks, CC: - Time Spent With Patient Time Spent with Patient (in minutes): 30
[2023-04-24 16:17] LABS: Glucose, Whole Blood 157 mg/dL (60-115)
[2023-04-24] MEDS: Insulin Lispro 100 UNIT/ML 3 ML VIAL SUBCUT ×2 (17:38→21:43)
[2023-04-24] MEDS: Warfarin Sodium 5 MG TABLET PO (17:44)
[2023-04-24 20:11] LABS: Glucose, Whole Blood 206 mg/dL (60-115)
[2023-04-25] VITALS (7 sets, daily range): BP systolic 102–117; BP diastolic 52–60; PULSE 58–78; RESP 13–18; TEMP 36.6–36.8; O2SAT 96–98
[2023-04-25 05:57] LABS: INTERNATIONAL NORM RATIO 1.6 (0.9-1.1); Prothrombin Time 18.9 SEC (11.1-13.3)
[2023-04-25 06:06] LABS: Anion Gap 13 (12-20); Blood Urea Nitrogen 23 mg/dL (9-16); Calcium 8.6 mg/dL (8.4-10.2); Carbon Dioxide 38 mmol/L (22-29); Chloride 94 mmol/L (96-108); Creatinine Clr Calc Pharmacy 44.2; Estimated Glomerular Filt Rate 42; Glucose Random 114 mg/dL (60-115); Potassium 3.5 mmol/L (3.3-5.1); Sodium 141 mmol/L (135-145)
[2023-04-25] MEDS: Fluticasone/Vilanterol 200/25 BLST.W.DEV 1 PUFF INHALE (07:31)
[2023-04-25] MEDS: Tiotropium Bromide 2.5 mcg 1 PUFF/2.5 MCG MIST.INHAL INHALE (07:31)
[2023-04-25 07:50] LABS: Glucose, Whole Blood 107 mg/dL (60-115)
[2023-04-25] MEDS: Ezetimibe 10 MG TABLET PO (08:28)
[2023-04-25] MEDS: Torsemide 20 MG TABLET 40 MG PO ×2 (08:28→21:35)
[2023-04-25] MEDS: Ascorbic Acid 500 MG TABLET PO (08:28)
[2023-04-25] MEDS: Ferrous Sulfate 324 MG TABLET.DR PO (08:28)
[2023-04-25] MEDS: Pravastatin Sodium 80 MG TABLET PO (08:28)
[2023-04-25] MEDS: 0.9 % Sodium Chloride Flush 3 ML SYRINGE IVFLUSH ×3 (08:29→21:36)
[2023-04-25] MEDS: Cyanocobalamin (Vitamin B-12) 1,000 MCG TABLET 1000 MCG PO (08:29)
--- NOTE | 2023-04-25 11:07 | HO.PM.IMPN ---
Subjective Subjective Date of Service: 04/25/23 Interval History: follow up for anemia, CHF breathing better, no sob Review of Systems Review of Systems: Yes all other systems are reviewed and are negative Constitutional Constitutional: Denies chills and Denies fever(s) Cardiovascular Cardiovascular: Denies chest pain, Denies palpitations and Denies dyspnea Respiratory Respiratory: Denies cough and Denies dyspnea Gastrointestinal Gastrointestinal: Denies abdominal pain Endocrine Endocrine: Denies palpitations Physical Exam Vital Signs: Vital Signs: Last Vital Signs Temp 98 F 04/25/23 07:41 Pulse 71 04/25/23 07:41 Resp 18 04/25/23 07:41 BP 104/60 04/25/23 07:41 Pulse Ox 96 04/25/23 07:41 O2 Del Method Nasal Cannula 04/25/23 07:41 O2 Flow Rate 2 04/25/23 07:41 Oxygen Flow Rate 2 04/21/23 15:30 BMI result Body Mass Index 30.1 Appearing in no acute distress lung sounds are clear to auscultation heart regular rate rhythm, clear S1, S2 positive bowel sounds, abdomen is soft, nontender neuro patient is alert x3, no focal deficits Objective Data Active Medications Acetaminophen (Acetaminophen 325 Mg Tablet) 650 mg PO Q6H PRN PRN Reason: Pain, Mild (Pain Scale 1-3) Last Admin: 04/23/23 22:39 Dose: 650 mg Documented By: FERNANDO Albuterol Sulfate (Albuterol Sulfate 90 Mcg 8 Gm Inhaler) 1 puff INHALE QID PRN PRN Reason: shortness of breath or wheezing Ascorbic Acid (Ascorbic Acid 500 Mg Tablet) 500 mg PO DAILY [facility] Last Admin: 04/25/23 08:28 Dose: 500 mg Documented By: PANDA Cyanocobalamin (Cyanocobalamin (Vitamin B-12) 1,000 Mcg Tablet) 1,000 mcg PO DAILY [facility] Last Admin: 04/25/23 08:29 Dose: 1,000 mcg Documented By: PANDA Dextrose (Dextrose 50 % 25 Gm/50 Ml Syringe) 25 gm IVPUSH Q15M PRN; Protocol PRN Reason: per Hypoglycemia Standing Ord. Digoxin (Digoxin 0.125 Mg Tablet) 0.125 mg PO Q2D [facility] Last Admin: 04/24/23 10:23 Dose: 0.125 mg Documented By: CHARLEEN Docusate Sodium (Docusate Sodium 100 Mg Capsule) 100 mg PO DAILY PRN PRN Reason: Constipation Last Admin: 04/24/23 08:01 Dose: 100 mg Documented By: CHARLEEN Ezetimibe (Ezetimibe 10 Mg Tablet) 10 mg PO DAILY [facility] Last Admin: 04/25/23 08:28 Dose: 10 mg Documented By: PANDA Ferrous Sulfate (Ferrous Sulfate 324 Mg Tablet.Dr) 324 mg PO DAILY [facility] Last Admin: 04/25/23 08:28 Dose: 324 mg Documented By: PANDA Fluticasone/Vilanterol (Fluticasone/Vilanterol 200/25 Blst.W.Dev) 1 [facility] Last Admin: 04/25/23 07:31 Dose: 1 puff Documented By: CHAYO Glucose (Glucose Gel 15 Gm Gel..Gram.) 15 gm PO Q15M PRN; Protocol PRN Reason: per Hypoglycemia Standing Ord. Insulin Human Lispro (Insulin Lispro 100 Unit/Ml 3 Ml Vial) 0 unit SUBCUT QIDACHS [facility]; Protocol Last Admin: 04/25/23 07:47 Dose: Not Given Documented By: PANDA Non-Admin Reason: No Insulin Coverage Ondansetron HCl (Ondansetron Hcl 4 Mg/2 Ml Vial) 4 mg IVPUSH Q8H PRN PRN Reason: Nausea and Vomiting Pravastatin Sodium (Pravastatin Sodium 80 Mg Tablet) 80 mg PO DAILY [facility] Last Admin: 04/25/23 08:28 Dose: 80 mg Documented By: PANDA Sodium Chloride (0.9 % Sodium Chloride Flush 3 Ml Syringe) 3 ml IVFLUSH QSHIFT [facility] Last Admin: 04/25/23 08:29 Dose: 3 ml Documented By: PANDA Tiotropium [place] (Tiotropium [place] 2.5 Mcg 1 Puff/2.5 Mcg Mist.Inhal) 1 puff INHALE RDAILY [facility] Last Admin: 04/25/23 07:31 Dose: 1 puff Documented By: CHAYO Torsemide (Torsemide 20 Mg Tablet) 40 mg PO BID [facility]; Protocol Last Admin: 04/25/23 08:28 Dose: 40 mg Documented By: PANDA Warfarin Sodium (Warfarin Sodium 5 Mg Tablet) 5 mg PO DAILY@1800 [facility] Last Admin: 04/24/23 17:44 Dose: 5 mg Documented By: CHARLEEN Labs 04/23/23 08:03 04/25/23 05:36 Labs: Laboratory Results - last 24 hr 04/24/23 04/24/23 04/24/23 11:17 16:05 20:05 Hold Purple Top PT INR Anion Gap Estim Creat Clear Calc Estimated GFR POC Glucose 146 H 157 H 206 H Random Glucose Calcium 04/25/23 04/25/23 05:36 07:43 Hold Purple Top SEE NOTE PT 18.9 H INR 1.6 H Anion Gap 13 Estim Creat Clear Calc 44.2 Estimated GFR 42 POC Glucose 107 Random Glucose 114 Calcium 8.6 Assessment and Plan (1) Severe anemia: Status: Acute (2) CHF exacerbation: Status: Acute Plan 72-year-old male with history of heart failure with preserved ejection fraction, pulmonary hypertension, hypertension, CKD stage 3, COPD with chronic hypoxemic respiratory failure on 2 L supplemental O2 at baseline, [id number] type 2 diabetes, chronic atrial fibrillation anticoagulated with Coumadin and on digoxin, hyperlipidemia, venous insufficiency, and chronic anemia admitted for symptomatic anemia with chf exacerbation and acute on chronic hypoxemic respiratory failure. H/H improved following blood transfusion with plan for discharge. However, patient with significant hudson and ambulatory hypoxia to 80% on supplemental O2. Symptomatic anemia chronic macrocytic anemia baseline s/p 2U RBC with improvement in H/H, now 8.5/29.6 Vitamin B12, folic acid, iron studies normal. LDH, bili wnl less likely hemolysis stool occult blood negative Hematology consult> Add Procrit MWF considering CKD Thrombocytopenia likely dilutional r/t blood transfusions Acute on chronic hypoxemic respiratory failure secondary to CHF exacerbation continue supplemental O2 to maintain 02 sat 90-92%; currently on baseline 2 L Acute exacerbation of HFpEF - likely due to demand from severe anemia last echo 12/21- normal LV systolic function with EF 65-70% with severely dilated bilateral atria. Moderately increased right ventricular cavity size with normal RV systolic function. There is moderate tricuspid valve regurgitation and moderate to severe pulmonary hypertension. overall net negative on this admission has been receiving 20 mg IV Lasix daily, but on torsemide 40 bid at baseline, will transition back to home dose of torsemide CKD3 creatinine going up and down follow BMP in am chronic atrial fibrillation- rate controlled stool occult blood negative. Denies bleeding INR subtherapeutic at 1.4. Coumadin dose missed 04/21, still subtherapeutic dose increased to 5mg today monitor INR daily continue digoxin COPD no acute exacerbation continue Symbicort, Spiriva albuterol p.r.n. [id number] type 2 diabetes-without hyperglycemia ss, ada diet HLD continue statin CKD stage 3 renal function baseline DVT prophylaxis-on Coumadin Full code attending - Dr. Espinal dispo - PT eval pending Patient requires ongoing inpatient stay management of severe symptomatic anemia close monitoring of renal function and electrolyte levels as well as close monitoring to prevent cardiopulmonary decompensation Quality Stroke Does the patient have a stroke diagnosis?: No VTE Prior VTE?: No VTE Risk Level:: Medical - moderate - high VTE Device Contraindication: Treatment Not Indicated VTE Drug Contraindication: N/A - Med Ordered
[2023-04-25 11:34] LABS: Glucose, Whole Blood 164 mg/dL (60-115)
[2023-04-25] MEDS: Insulin Lispro 100 UNIT/ML 3 ML VIAL SUBCUT ×3 (11:38→21:36)
[2023-04-25 15:41] LABS: Glucose, Whole Blood 189 mg/dL (60-115)
[2023-04-25] MEDS: Warfarin Sodium 5 MG TABLET PO (17:12)
[2023-04-25 20:17] LABS: Glucose, Whole Blood 181 mg/dL (60-115)
[2023-04-26] VITALS (10 sets, daily range): BP systolic 101–135; BP diastolic 55–78; PULSE 58–95; RESP 16–20; TEMP 36.4–36.9; O2SAT 86–99
[2023-04-26 07:33] LABS: Glucose, Whole Blood 110 mg/dL (60-115)
[2023-04-26 07:38] LABS: INTERNATIONAL NORM RATIO 1.7 (0.9-1.1); Prothrombin Time 20.1 SEC (11.1-13.3)
[2023-04-26] MEDS: Ascorbic Acid 500 MG TABLET PO (08:25)
[2023-04-26] MEDS: Cyanocobalamin (Vitamin B-12) 1,000 MCG TABLET 1000 MCG PO (08:25)
[2023-04-26] MEDS: Ferrous Sulfate 324 MG TABLET.DR PO (08:25)
[2023-04-26] MEDS: Ezetimibe 10 MG TABLET PO (08:26)
[2023-04-26] MEDS: Pravastatin Sodium 80 MG TABLET PO (08:26)
[2023-04-26] MEDS: Torsemide 20 MG TABLET 40 MG PO ×2 (08:26→21:19)
[2023-04-26] MEDS: Fluticasone/Vilanterol 200/25 BLST.W.DEV 1 PUFF INHALE (08:28)
[2023-04-26] MEDS: 0.9 % Sodium Chloride Flush 3 ML SYRINGE IVFLUSH ×3 (08:28→21:20)
[2023-04-26] MEDS: Tiotropium Bromide 2.5 mcg 1 PUFF/2.5 MCG MIST.INHAL INHALE (08:28)
[2023-04-26] MEDS: Digoxin 0.125 MG TABLET PO (08:31)
[2023-04-26 11:14] LABS: Glucose, Whole Blood 158 mg/dL (60-115)
--- NOTE | 2023-04-26 11:41 | HO.PM.IMPN ---
Subjective Subjective Date of Service: 04/26/23 Interval History: follow up for anemia, CHF breathing better, no sob Review of Systems Review of Systems: Yes all other systems are reviewed and are negative Constitutional Constitutional: Denies chills and Denies fever(s) Cardiovascular Cardiovascular: Denies chest pain, Denies palpitations and Denies dyspnea Respiratory Respiratory: Denies cough and Denies dyspnea Gastrointestinal Gastrointestinal: Denies abdominal pain Endocrine Endocrine: Denies palpitations Physical Exam Vital Signs: Vital Signs: Last Vital Signs Temp 98.0 F 04/26/23 11:08 Pulse 58 04/26/23 11:08 Resp 18 04/26/23 11:08 BP 101/59 L 04/26/23 11:08 Pulse Ox 97 04/26/23 11:08 O2 Del Method Nasal Cannula 04/26/23 11:08 O2 Flow Rate 2 04/26/23 11:08 Oxygen Flow Rate 2 04/21/23 15:30 BMI result Body Mass Index 30.1 Appearing in no acute distress lung sounds are clear to auscultation heart regular rate rhythm, clear S1, S2 positive bowel sounds, abdomen is soft, nontender neuro patient is alert x3, no focal deficits Objective Data Active Medications Acetaminophen (Acetaminophen 325 Mg Tablet) 650 mg PO Q6H PRN PRN Reason: Pain, Mild (Pain Scale 1-3) Last Admin: 04/23/23 22:39 Dose: 650 mg Documented By: FERNANDO Albuterol Sulfate (Albuterol Sulfate 90 Mcg 8 Gm Inhaler) 1 puff INHALE QID PRN PRN Reason: shortness of breath or wheezing Ascorbic Acid (Ascorbic Acid 500 Mg Tablet) 500 mg PO DAILY [facility] Last Admin: 04/26/23 08:25 Dose: 500 mg Documented By: JOSE LUIS Cyanocobalamin (Cyanocobalamin (Vitamin B-12) 1,000 Mcg Tablet) 1,000 mcg PO DAILY [facility] Last Admin: 04/26/23 08:25 Dose: 1,000 mcg Documented By: JOSE LUIS Dextrose (Dextrose 50 % 25 Gm/50 Ml Syringe) 25 gm IVPUSH Q15M PRN; Protocol PRN Reason: per Hypoglycemia Standing Ord. Digoxin (Digoxin 0.125 Mg Tablet) 0.125 mg PO Q2D [facility] Last Admin: 04/26/23 08:31 Dose: 0.125 mg Documented By: JOSE LUIS Docusate Sodium (Docusate Sodium 100 Mg Capsule) 100 mg PO DAILY PRN PRN Reason: Constipation Last Admin: 04/24/23 08:01 Dose: 100 mg Documented By: CHARLEEN Ezetimibe (Ezetimibe 10 Mg Tablet) 10 mg PO DAILY [facility] Last Admin: 04/26/23 08:26 Dose: 10 mg Documented By: JOSE LUIS Epoetin Sami (Epoetin Sami 10,000 Unit/Ml Vial) 10,000 unit SUBCUT MoWeFr@0900 [facility] Ferrous Sulfate (Ferrous Sulfate 324 Mg Tablet.Dr) 324 mg PO DAILY [facility] Last Admin: 04/26/23 08:25 Dose: 324 mg Documented By: JOSE LUIS Fluticasone/Vilanterol (Fluticasone/Vilanterol 200/25 Blst.W.Dev) 1 puff [facility] Last Admin: 04/26/23 08:28 Dose: 1 puff Documented By: MACIEJ Glucose (Glucose Gel 15 Gm Gel..Gram.) 15 gm PO Q15M PRN; Protocol PRN Reason: per Hypoglycemia Standing Ord. Insulin Human Lispro (Insulin Lispro 100 Unit/Ml 3 Ml Vial) 0 unit SUBCUT QIDACHS [facility]; Protocol Last Admin: 04/26/23 07:34 Dose: Not Given Documented By: JOSE LUIS Non-Admin Reason: No Insulin Coverage Ondansetron HCl (Ondansetron Hcl 4 Mg/2 Ml Vial) 4 mg IVPUSH Q8H PRN PRN Reason: Nausea and Vomiting Pravastatin Sodium (Pravastatin Sodium 80 Mg Tablet) 80 mg PO DAILY [facility] Last Admin: 04/26/23 08:26 Dose: 80 mg Documented By: JOSE LUIS Sodium Chloride (0.9 % Sodium Chloride Flush 3 Ml Syringe) 3 ml IVFLUSH QSHIFT [facility] Last Admin: 04/26/23 08:28 Dose: 3 ml Documented By: JOSE LUIS Tiotropium [place] (Tiotropium [place] 2.5 Mcg 1 Puff/2.5 Mcg Mist.Inhal) 1 puff INHALE RDAILY [facility] Last Admin: 04/26/23 08:28 Dose: 1 puff Documented By: MACIEJ Torsemide (Torsemide 20 Mg Tablet) 40 mg PO BID [facility]; Protocol Last Admin: 04/26/23 08:26 Dose: 40 mg Documented By: JOSE LUIS Warfarin Sodium (Warfarin Sodium 5 Mg Tablet) 5 mg PO DAILY@1800 [facility] Last Admin: 04/25/23 17:12 Dose: 5 mg Documented By: PANDA Labs 04/23/23 08:03 04/25/23 05:36 Labs: Laboratory Results - last 24 hr 04/25/23 04/25/23 04/26/23 15:29 20:11 06:40 PT 20.1 H INR 1.7 H POC Glucose 189 H 181 H 04/26/23 04/26/23 07:23 11:09 PT INR POC Glucose 110 158 H Assessment and Plan (1) Severe anemia: Status: Acute (2) CHF exacerbation: Status: Acute Plan 72-year-old male with history of heart failure with preserved ejection fraction, pulmonary hypertension, hypertension, CKD stage 3, COPD with chronic hypoxemic respiratory failure on 2 L supplemental O2 at baseline, [id number] type 2 diabetes, chronic atrial fibrillation anticoagulated with Coumadin and on digoxin, hyperlipidemia, venous insufficiency, and chronic anemia admitted for symptomatic anemia with chf exacerbation and acute on chronic hypoxemic respiratory failure. H/H improved following blood transfusion with plan for discharge. However, patient with significant hudson and ambulatory hypoxia to 80% on supplemental O2. Symptomatic anemia chronic macrocytic anemia baseline s/p 2U RBC with improvement in H/H, now 8.5/29.6 Vitamin B12, folic acid, iron studies normal. LDH, bili wnl less likely hemolysis stool occult blood negative Hematology consult> Add Procrit MWF considering CKD Thrombocytopenia likely dilutional r/t blood transfusions Acute on chronic hypoxemic respiratory failure secondary to CHF exacerbation continue supplemental O2 to maintain 02 sat 90-92%; currently on baseline 2 L Acute exacerbation of HFpEF - likely due to demand from severe anemia last echo 12/21- normal LV systolic function with EF 65-70% with severely dilated bilateral atria. Moderately increased right ventricular cavity size with normal RV systolic function. There is moderate tricuspid valve regurgitation and moderate to severe pulmonary hypertension. overall net negative on this admission has been receiving 20 mg IV Lasix daily, but on torsemide 40 bid at baseline, will transition back to home dose of torsemide CKD3 creatinine going up and down follow BMP in am chronic atrial fibrillation- rate controlled stool occult blood negative. Denies bleeding INR subtherapeutic at 1.4. Coumadin dose missed 04/21, still subtherapeutic dose increased to 5mg today monitor INR daily continue digoxin COPD no acute exacerbation continue Symbicort, Spiriva albuterol p.r.n. [id number] type 2 diabetes-without hyperglycemia ss, ada diet HLD continue statin CKD stage 3 renal function baseline DVT prophylaxis-on Coumadin Full code attending - Dr. Espinal dispo - PT eval pending Patient requires ongoing inpatient stay management of severe symptomatic anemia close monitoring of renal function and electrolyte levels as well as close monitoring to prevent cardiopulmonary decompensation Quality Stroke Does the patient have a stroke diagnosis?: No VTE Prior VTE?: No VTE Risk Level:: Medical - moderate - high VTE Device Contraindication: Treatment Not Indicated VTE Drug Contraindication: N/A - Med Ordered
[2023-04-26] MEDS: Insulin Lispro 100 UNIT/ML 3 ML VIAL SUBCUT ×2 (12:00→16:56)
[2023-04-26 16:10] LABS: Glucose, Whole Blood 223 mg/dL (60-115)
[2023-04-26] MEDS: Warfarin Sodium 5 MG TABLET PO (17:45)
[2023-04-26 20:15] LABS: Glucose, Whole Blood 140 mg/dL (60-115)
[2023-04-26 23:35] LABS: Glucose, Whole Blood 138 mg/dL (60-115)
[2023-04-27 04:00] VITALS: BP 131/61; PULSE 66; RESP 18; TEMP 36.4; O2SAT 96
[2023-04-27 06:40] LABS: MANUAL DIFF FLAG NO
[2023-04-27 06:50] LABS: Basophils Percent Auto 0.8 % (0-2); Eosinophils Absolute Auto 0.3 X10*3/uL (0.0-0.4); Eosinophils Percent Auto 5.6 % (0-4); Hematocrit 30.1 % (42.0-52.0); Hemoglobin 8.6 g/dl (14.0-18.0); Imm Gran Abs Auto 0.03 X10*3/uL (0.00-0.03); Imm Gran Pct Auto 0.6 % (0.0-0.4); Lymphocytes Absolute Auto 1.2 X10*3/uL (1.2-4.9); Lymphocytes Percent Auto 21.8 % (20-40); Mean Corpuscular HGB Conc 28.6 g/dl (31.0-36.0); Mean Corpuscular Hemoglobin 28.2 pg (27.0-33.0); Mean Corpuscular Volume 98.7 fL (80.0-98.0); Mean Platelet Volume 10.3 fL (9.4-12.4); Monocytes Absolute Auto 0.6 X10*3/uL (0.1-1.2); Neutrophils Absolute Auto 3.2 x10*3/uL (2.0-8.3); Neutrophils Percent Auto 59.2 % (45-73); Platelet Count 221 X10*3/uL (160-400); Red Blood Count 3.05 X10*6/uL (4.60-5.80); Red Cell Distribution Width 17.4 % (11.0-16.0); White Blood Count 5.3 X10*3/uL (4.8-10.8)
[2023-04-27 06:56] LABS: INTERNATIONAL NORM RATIO 1.9 (0.9-1.1); Prothrombin Time 22.6 SEC (11.1-13.3)
[2023-04-27 07:10] LABS: Alanine Aminotransferase 13 U/L (0-40); Albumin Level 3.6 g/dL (3.5-5.0); Alkaline Phosphatase 55 U/L (39-117); Anion Gap 13 (12-20); Aspartate Amino Transferase 23 U/L (5-37); Bilirubin Total 0.5 mg/dL (0.0-1.0); Blood Urea Nitrogen 26 mg/dL (9-16); Calcium 8.9 mg/dL (8.4-10.2); Carbon Dioxide 39 mmol/L (22-29); Chloride 95 mmol/L (96-108); Creatinine Clr Calc Pharmacy 45.9; Estimated Glomerular Filt Rate 44; Glucose Random 124 mg/dL (60-115); Potassium 3.5 mmol/L (3.3-5.1); Sodium 143 mmol/L (135-145); Total Protein 6.5 g/dL (6.5-8.0)
[2023-04-27] MEDS: Tiotropium Bromide 2.5 mcg 1 PUFF/2.5 MCG MIST.INHAL INHALE (07:46)
[2023-04-27] MEDS: Fluticasone/Vilanterol 200/25 BLST.W.DEV 1 PUFF INHALE (07:46)
[2023-04-27 07:47] VITALS: PULSE 92; RESP 18; O2SAT 93
[2023-04-27 07:48] LABS: Glucose, Whole Blood 114 mg/dL (60-115)
[2023-04-27 07:50] VITALS: BP 121/59; PULSE 79; RESP 22; TEMP 36.7; O2SAT 96
[2023-04-27] MEDS: Pravastatin Sodium 80 MG TABLET PO (10:20)
[2023-04-27] MEDS: Torsemide 20 MG TABLET 40 MG PO (10:20)
[2023-04-27] MEDS: Ascorbic Acid 500 MG TABLET PO (10:20)
[2023-04-27] MEDS: 0.9 % Sodium Chloride Flush 3 ML SYRINGE IVFLUSH (10:20)
[2023-04-27] MEDS: Ezetimibe 10 MG TABLET PO (10:20)
[2023-04-27] MEDS: Cyanocobalamin (Vitamin B-12) 1,000 MCG TABLET 1000 MCG PO (10:20)
[2023-04-27] MEDS: Ferrous Sulfate 324 MG TABLET.DR PO (10:20)
--- NOTE | 2023-04-27 10:40 | P.DS_ITS ---
DS: Providers Provider Date of Service: 04/27/23 Date of admission: 04/21/23 18:57 Primary care physician: Grayson Berrios DO, MD Consults: 04/22/23 16:24 Consult to Hematology / Oncology Routine Consulting Provider: Eliz Pierce Reason for consultation: symptomatic anemia 04/25/23 08:36 Consult to Wound Care Routine Reason for consultation: SMALL PIMPLE ON BACK THAT BURST AND REDNESS BLE DS: Diagnosis Discharge Diagnosis (1) Macrocytic anemia: Status: Acute DS: Summary Hospital Course Hospital Course: History and physical as per admitting provider. 72-year-old male with history of heart failure with preserved ejection fraction, pulmonary hypertension, hypertension, CKD stage 3, COPD with chronic hypoxemic respiratory failure on 2 L supplemental O2 at baseline, hoj-nkzbojn-oeomsaszi type 2 diabetes, chronic atrial fibrillation anticoagulated with Coumadin and on digoxin, hyperlipidemia, venous insufficiency, and chronic anemia presented to the ED earlier today from Cardiology office for evaluation of dyspnea on exertion and acute hypoxia. He states that he has been having progressively worsening dyspnea on exertion over the last 3 weeks as well as orthopnea. Denies any PND. He does measure his weight daily and states that weights have been stable between 197-199. However, he has noted increased edema in the bilateral lower extremities. Reports compliance with diuretics. No recent illness. No fevers, chills, abdominal pain, nausea, vomiting, diarrhea, melena, hematochezia, epistaxis, significant bruising, lightheadedness, headaches, or chest pains. On arrival, patient hypoxic to 83%, supplemental O2 increased to 3 L now maintaining oximetry 94- 98%. Vitals otherwise stable. There is no leukocytosis. H/H 7.0/25.3%, MCV 102.4. INR 1.6. Renal function consistent with baseline, electrolyte levels normal except for CO2 42 also consistent with baseline. Glucose 128. Iron panel, vitamin B12, folic acid levels pending. Troponin within normal limits. BNP 136, baseline around 62. Stool occult blood negative. Negative for influenza, RSV, COVID-19. Chest x-ray shows mild cardiomegaly and hyper inflated lungs without acute process. EKG shows atrial fibrillation with PVCs and nonspecific T ST abnormality, rate 62. In the ED, has been diuresed with 20 mg IV Lasix and is being transfused 1 unit packed red blood cells. 72-year-old man treated for symptomatic anemia, thrombocytopenia, acute on chronic hypoxemic respiratory failure secondary to CHF exacerbation. Patient was initially treated for symptomatic anemia and was transfused 2 units of packed red blood cells with stabilization in his hemoglobin and hematocrit. Vitamin B12 folic acid and iron studies were normal and he did not show signs of hemolysis. His stool occult was also negative. He was seen and evaluated by Hematology who recommended Procrit Thursday, Thursday and Thursday considering his history of CKD. He was also treated for acute hypoxemic respiratory failure secondary to heart failure with preserved ejection fraction likely secondary to demand from severe anemia. Echocardiogram showed EF of 65-70% with severely dilated bilateral atria. He was treated with and was shown to be -5 L. He was then switched to his home dose of torsemide which he will continue on discharge. Patient remains on 2 L of oxygen IC was at home. He is hemodynamically stable plan to discharge home with family. Chronic atrial fibrillation. Rate controlled. Continue home medications, visiting nurse to check INRs as per previous to hospitalization COPD. No exacerbation during admission. Continue home inhalers Diabetes mellitus type 2. Continue home medications Hyperlipidemia. Continue statin CKD stage 3 renal function at baseline Time Attestation Discharge coordination time: Greater than 30 minutes Quality: Safe Use of Opioids Does Pt have an Active Cancer Diagnosis on the Problem List?: No Quality: Stroke Does the patient have a stroke diagnosis?: No Physical Exam 2 Vital Signs: Vital Signs: Last Vital Signs Temp 98.1 F 04/27/23 07:50 Pulse 79 04/27/23 07:50 Resp 22 H 04/27/23 07:50 BP 121/59 L 04/27/23 07:50 Pulse Ox 96 04/27/23 07:50 O2 Del Method Nasal Cannula 04/27/23 07:50 O2 Flow Rate 2 04/27/23 07:50 Oxygen Flow Rate 2 04/21/23 15:30 BMI result Body Mass Index 30.1 Appearing in no acute distress head is normocephalic atraumatic eyes pupils are PERRLA sclera is anicteric mouth throat mucous membranes are intact and moist neck is supple no lymphadenopathy, no JVD noted lung sounds are clear to auscultation heart regular rate rhythm, clear S1, S2 positive bowel sounds, abdomen is soft, nontender neuro patient is alert x3, no focal deficits DS: Data Data Completed and Pending Labs on day of discharge: Laboratory Results - last 24 hr 04/26/23 04/26/23 04/26/23 11:09 16:05 20:10 WBC RBC Hgb Hct MCV MCH MCHC RDW Plt Count MPV Immature Gran % (Auto) Neut % (Auto) Lymph % (Auto) [place] % (Auto) Eos % (Auto) Baso % (Auto) Lymph # (Auto) [place] # (Auto) Eos # (Auto) Baso # (Auto) Abs Immat Gran (auto) Absolute Neuts (auto) Absolute Nucleated RBC Nucleated RBC % (auto) PT INR Sodium Potassium Chloride Carbon Dioxide Anion Gap BUN Creatinine Estim Creat Clear Calc Estimated GFR POC Glucose 158 H 223 H 140 H Random Glucose Calcium Total Bilirubin AST ALT Alkaline Phosphatase Total Protein Albumin 04/26/23 04/27/23 04/27/23 23:32 06:29 07:45 WBC 5.3 RBC 3.05 L Hgb 8.6 L Hct 30.1 L MCV 98.7 H MCH 28.2 MCHC 28.6 L RDW 17.4 H Plt Count 221 D MPV 10.3 Immature Gran % (Auto) 0.6 H Neut % (Auto) 59.2 Lymph % (Auto) 21.8 [place] % (Auto) 12.0 H Eos % (Auto) 5.6 H Baso % (Auto) 0.8 Lymph # (Auto) 1.2 [place] # (Auto) 0.6 Eos # (Auto) 0.3 Baso # (Auto) 0.0 Abs Immat Gran (auto) 0.03 Absolute Neuts (auto) 3.2 Absolute Nucleated RBC 0.000 Nucleated RBC % (auto) 0.0 PT 22.6 H INR 1.9 H Sodium 143 Potassium 3.5 Chloride 95 L Carbon Dioxide 39 H Anion Gap 13 BUN 26 H Creatinine 1.56 H Estim Creat Clear Calc 45.9 Estimated GFR 44 POC Glucose 138 H 114 Random Glucose 124 H Calcium 8.9 Total Bilirubin 0.5 AST 23 ALT 13 Alkaline Phosphatase 55 Total Protein 6.5 Albumin 3.6 Discharge Plan Discharge Anticipated Discharge Date/Time: 04/27/23 07:26 Patient Disposition: Home Health Service Discharge Diagnosis: symptomatic anemia, chf exacerbation Referrals: Keysha CHUNG [Outside] - 1 Week Eliz Pierce MD [Physician] - 1 Week (severe macrocytic anemia) Discharge Medications: New Retacrit 10,000 unit/mL Solution 10,000 unit subcut MoWeFr@0900 Qty: 10 0RF Continued torsemide 20 mg tablet 40 mg PO BID Qty: 120 3RF Protocol: Hold for SBP< HOLD for SBP < : 90 Rx Instructions: Take torsemide 2 tablets ( 40 mg twice daily) pravastatin 80 mg tablet 80 mg PO DAILY Qty: 90 3RF warfarin 2.5 mg tablet 2.5 mg PO MOTUTHFRSA warfarin 2.5 mg tablet 1.25 mg PO SUWE cyanocobalamin (vitamin B-12) 1,000 mcg Tablet 1,000 mcg PO DAILY digoxin 125 mcg (0.125 mg) tablet 125 mcg PO Q2D Qty: 30 0RF budesonide-formoterol 160-4.5 mcg/actuation HFA aerosol inhaler 2 puff PO BID tiotropium bromide 18 mcg capsule, w/inhalation device 18 mcg PO DAILY ferrous sulfate 325 mg (65 mg iron) tablet 325 mg PO DAILY metformin 500 mg tablet 500 mg PO BIDWM ezetimibe 10 mg tablet 10 mg PO DAILY ascorbic acid (vitamin C) 500 mg tablet 500 mg PO DAILY warfarin 2.5 mg tablet 2.5 mg PO DAILY Protocol: Dose Management Condition: Thursday (Week One) Dose/Route: 1.25 mg Instruction: 0.5 x 2.5 mg tablets Condition: Thursday Dose/Route: 2.5 mg Instruction: 1 x 2.5 mg tablet Condition: Thursday Dose/Route: 2.5 mg Instruction: 1 x 2.5 mg tablet Condition: Thursday Dose/Route: 5 mg Instruction: 1 x 5 mg tablet Condition: Dose/Route: 5 mg Instruction: 1 x 5 mg tablet Condition: Thursday Dose/Route: 2.5 mg Instruction: 1 x 2.5 mg tablet Condition: Thursday Dose/Route: 2.5 mg Instruction: 1 x 2.5 mg tablet Condition: Thursday (Week Two) Dose/Route: 1.25 mg Instruction: 0.5 x 2.5 mg tablets Condition: Thursday Dose/Route: 2.5 mg Instruction: 1 x 2.5 mg tablet Condition: Thursday Dose/Route: 2.5 mg Instruction: 1 x 2.5 mg tablet Condition: Thursday Dose/Route: 1.25 mg Instruction: 0.5 x 2.5 mg tablets Condition: Dose/Route: 2.5 mg Instruction: 1 x 2.5 mg tablet Condition: Thursday Dose/Route: 2.5 mg Instruction: 1 x 2.5 mg tablet Condition: Thursday Dose/Route: 2.5 mg Instruction: 1 x 2.5 mg tablet Protocol Text: Adjustment Start Date: Thursday04/17/23 INR Value: 1.9 INR Date: 04/17/23 Recheck Date: 04/22/23 Additional Instructions: INR is almost in range continue usual dosing no greens x 2 days then balance greens and reds in diet albuterol sulfate 90 mcg/actuation HFA aerosol inhaler 1 inh inhalation QID PRN (Reason: shortness of breath or wheezing) Discharge Orders: Discharge Order (Routine); Ordered 04/27/23 Ordered By: Jen Diaz Diet: Advance to usual diet Activity on Discharge: As tolerated Stand Alone Forms: Patient Portal Discharge page Activity Restrictions/Additional Instructions: Follow up with Dr Broussard - Dermatology on 05/13/23 previously scheduled appointment. Wound care Recommendations: Left Back - Cleanse skin with routine showering. Pat dry. Cover wound bed cut piece of Aliginate AG followed by Dry dressing. Change daily. Consider use of Vaseline once Alginate AG no longer available. Care Plan Goals: see below Health Concerns: Severe symptomatic anemia CHF exacerbation Plan of Treatment: Severe symptomatic anemia -received 2 units packed red blood cells in the ED with improvement in blood counts and resolution of symptoms -Cause of worsening anemia unclear. You are not bleeding, iron levels and vitamin levels are normal -Follow up with hematology on an outpatient basis for further investigation CHF exacerbation -mild volume overload secondary to anemia above -Given IV diuretics with improvement -continue oral torsemide at home Atrial fibrillation- rate controlled during admission -resume warfarin as scheduled -VNA to recheck INR at home You have been started on a medication called Procrit that help stimulate red blood cells to help with anemia. You will take this 3 times a week, it is an injection that you can inject into the abdomen or any fatty area. Follow-up with your seed cleaning machine operator to manage this medication. Visiting nurse service to resume checking your INR for your warfarin doses Assessment: see above
--- NOTE | 2023-04-27 10:44 | MHC.CM.PN ---
Second IMM given 04/27. Pt is medically cleared for D/C home with resumption of [facility] and [employer] for home O2. Pts will transport him home.
[2023-04-27] MEDS: Epoetin Alfa-epbx 10,000 UNIT/ML VIAL 10000 UNIT SUBCUT (10:49)
--- NOTE | 2023-04-27 11:21 | HO.WOUND ---
Wound Consult: Initial 72yr old male admitted to [facility] on? 04/21/23 18:57 - See progress notes and H&P for detailed history. Wound consult placed for Left back wound and bilateral lower legs. Bilateral lower legs have venous stasis dermatitis no open wounds at this time - hemosiderin staining noted - Advised pt to apply cream to legs to keep skin healthy. Pt reports back wound is pimple that was popped by lost charge card clerk a few week ago . Pt has follow up appointment with Dr. Broussard Manager [facility] in [facility] 05/13/23 - pt advised to keep appointment for followup. Wound bed not consisitent with pimple but may be biopsy retlate - partial thicvness wound bed exposed - moist and clean with blanchable hyperpigmented tissue in periwound. NoInduration, Fluctuance, or Warmth noted - no s/s of activbe infection at this time. Goals of Treatment: ? Follow up with Dr Broussard - Dermatology and moist wound healing with Alginate and cover dressing. Recommendations: 1. Left Back - Cleanse skin with routine showering. Pat dry. Cover wound bed cut piece of Aliginate AG followed by Dry dressing. Change daily. Consider use of Vaseline once Alginate AG no longer available. Re-consult wound care Nurse for wound deterioration or wound changes.
[2023-04-27 12:09] LABS: Glucose, Whole Blood 170 mg/dL (60-115)
--- NOTE | 2023-04-27 12:26 | W.MHC.F2F ---
Service Date Service Date: 04/27/23 Encounter Date of encounter: 04/27/23 Reasons for Services Signs and symptoms assessed: Acute congestive heart failure Severe anemia Atrial fibrillation Reason for penitentiary: CV/CP assess and/or care, administration of IV, SQ, or IM injection and teach disease management Homebound: Leaving the home is medically contraindicated at this time without the asist of a device and/or another person due th the listed conditions above and below. Reason homebound: unsteady gait / fall risk Certification: Based on the above findings, I certify that this patient is confined to the home and needs intermittent penitentiary care, physical therapy and/or speech therapy, or continues to need occupational therapy. The patient is under my care, and I have initiated the establishment of the plan of care. The patient will be followed by a physician who will periodically review the plan of care. Time Spent With Patient Time: Total time managing care of this patient today ____ minutes.
[2023-04-28 21:18] LABS: IgA 342 mg/dL (70-320); IgG 1009 mg/dL (600-1540); IgM 51 mg/dL (50-300)
== END 2023-04-27 13:23 | disposition home health service (06) | DRG 291 ==
LOC: HO.ED 17:59 → HO.EDOVER 19:08 → HO.IMC 19:23
PROVIDERS: Internal Medicine; Internal Medicine Medical Oncology; Physician Assistant Medical; Admitting Provider Physician Assistant; Emergency Provider Internal Medicine; PCP Internal Medicine; Visit Provider Nurse Practitioner Acute Care
DX: I13.0 Hypertensive heart and chronic kidney disease with heart failure and stage 1 through stage 4 chronic kidney disease, or unspecified chronic kidney disease (principal); I50.33 Acute on chronic diastolic (congestive) heart failure; J96.21 Acute and chronic respiratory failure with hypoxia; I48.20 Chronic atrial fibrillation, unspecified; E11.22 Type 2 diabetes mellitus with diabetic chronic kidney disease; N18.30 Chronic kidney disease, stage 3 unspecified; I07.1 Rheumatic tricuspid insufficiency; I87.2 Venous insufficiency (chronic) (peripheral); J44.9 Chronic obstructive pulmonary disease, unspecified; D69.6 Thrombocytopenia, unspecified; E78.5 Hyperlipidemia, unspecified; I27.20 Pulmonary hypertension, unspecified; R79.1 Abnormal coagulation profile; D63.1 Anemia in chronic kidney disease; Z99.81 Dependence on supplemental oxygen; Z20.822 Contact with and (suspected) exposure to COVID-19; Z87.891 Personal history of nicotine dependence; Z79.01 Long term (current) 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; Z79.84 Long term (current) use of oral hypoglycemic drugs; Z79.899 Other long term (current) drug therapy
CPT/HCPCS: 0241U; 36415; 71046; 80048; 80053; 80076; 82272; 82607; 82728; 82746; 82784; 82947; 83540; 83615; 83735; 83880; 84484; 85014; 85018; 85025; 85027; 85610; 86334; 86850; 86900; 86901; 86923; 93005; 93970; 94640; 94664; 97161; 99212; 99285; J0885; J1940; P9016; Q5106

== ENCOUNTER → 2023-04-21 18:57 | Outpatient (BNV) | payer MEDICARE, SELFPAY | PROVIDERS: Admitting Provider Physician Assistant; Emergency Provider Internal Medicine; PCP Internal Medicine; Visit Provider Internal Medicine Medical Oncology | DX: D64.9 Anemia, unspecified (principal) | CPT/HCPCS: 99222 ==

== ENCOUNTER → 2023-04-21 18:57 | Outpatient (BNV) | payer MEDICARE, SELFPAY | PROVIDERS: Admitting Provider Physician Assistant; Emergency Provider Internal Medicine; PCP Internal Medicine; Visit Provider Physician Assistant | DX: D53.9 Nutritional anemia, unspecified (principal) | CPT/HCPCS: 99223; 99232; 99239; G0180 ==

== ENCOUNTER → 2023-04-27 18:06 | Outpatient (BNVA) | payer MEDICARE, SELFPAY | PROVIDERS: PCP Internal Medicine; Visit Provider Internal Medicine ==

== ENCOUNTER → 2023-04-28 12:08 | Outpatient (BNVA) | payer MEDICARE, SELFPAY | PROVIDERS: PCP Internal Medicine; Visit Provider Internal Medicine ==

== ENCOUNTER → 2023-04-30 14:19 | Outpatient (BNVA) | payer MEDICARE, SELFPAY | PROVIDERS: PCP Internal Medicine; Visit Provider Internal Medicine ==

== ENCOUNTER → 2023-05-01 10:49 | Outpatient (REF) | payer MEDICARE, SELFPAY ==
--- NOTE | 2023-05-01 10:52 | CA_ITS ---
Transthoracic Echocardiogram Patient (Last, First, Middle): Kiran Law, Gender: Male Date of : 1950 Age: 72 Procedure Date: 05/01/2023 Procedure Type: Transthoracic Echocardiogram Location: OP Height: 172.72 cm Weight: 88.45 kg BSA: 2.02 m2 Heart Rate: 89 bpm BP: 105 / 55 mmHg Phone Manager: NIMA Referring MD: Mateo Bird MD Biological Technical Officer: Mateo Bird MD Symptoms: I50.9 - Heart failure, unspecified Study Quality: Adequate/Limited ECG Rhythm: Atrial Fibrillation Conclusions: - 1. Mildly dilated right ventricle with normal systolic function 2. Moderately elevated right ventricular systolic pressure was significantly elevated right atrial pressures Findings Right Ventricle Mildly increased right ventricular cavity size. There is normal right ventricular systolic function. Tricuspid Valve Significantly elevated right atrial pressure. Moderate pulmonary hypertension is present. Prior Study Comparison No significant change compared to prior study dated: 12/16/2022. Measurements 2D Linear Measurements LVOT Diam: 2.40 3.0+(-)1.3 cm Mitral Valve MV Pk E: 1.24 MV Decel Time: 184.00 E'Lateral: 11.60 E'Medial: 13.80 E/E' Med: 9.00 E/E' Lat: 10.70 PHT: 54.00 MVA PHT: 4.07 Decel [place]: 6.72 LVOT LVOT Pk [place]: 1.06 LVOT Mn [place]: 0.78 LVOT VTI: 0.21 LVOT Pk Grad: 4.00 LVOT Mn Grad: 3.00 LVOT Diam: 2.40 LVOT Area: 4.52 Diastolic Function MV Pk E: 1.24 E'Medial: 13.80 E/E' Med: 9.00 E' Laterial: 11.60 E/E' Lat: 10.70 Tricuspid Valve TR Pk [place]: 3.08 TR Pk Grad: 38.00 RA Press: 15.00 RVSP: 53.00 Updated in Other Vendor System with Status of Final Mateo Bird MD electronically signed on 05/02/2023 12:12:39 PM with status of Final
== END | disposition home or self-care (01) ==
LOC: HO.CARD 10:49
PROVIDERS: PCP Internal Medicine; Visit Provider Internal Medicine Cardiovascular Disease
DX: I50.9 Heart failure, unspecified (principal)
CPT/HCPCS: 93308

== ENCOUNTER → 2023-05-01 10:52 | Outpatient (BNV) | payer MEDICARE, SELFPAY | PROVIDERS: PCP Internal Medicine; Visit Provider Internal Medicine Cardiovascular Disease | DX: I48.91 Unspecified atrial fibrillation (principal) | CPT/HCPCS: 93308 ==

== ENCOUNTER → 2023-05-04 11:28 | Outpatient (BNVA) | payer MEDICARE, SELFPAY | PROVIDERS: PCP Internal Medicine; Visit Provider Internal Medicine ==

== ENCOUNTER → 2023-05-08 14:28 | Outpatient (BNVA) | payer MEDICARE, SELFPAY | PROVIDERS: PCP Internal Medicine; Visit Provider Internal Medicine ==

== ENCOUNTER 2023-05-11 09:26 | Outpatient (AMB) | payer MEDICARE, SELFPAY ==
[2023-05-11 09:39] VITALS: BP 114/62; PULSE 79; BMI 30.8
--- NOTE | 2023-05-11 09:39 | MHC.OFFVIS ---
Intake Vital Signs 05/11/23 09:39 Height 5 ft 8 in Weight 202 lb 13.204 oz BMI 30.8 BP 114/62 Blood Pressure Location Lt brachial Position Sitting Pulse 79 Intake Visit Reasons: f/u HS request Allergies No Known Allergies Allergy (Verified 05/11/23 09:43) Medication List - Last Reconciled 05/11/23 by TARSHA Dawson albuterol sulfate 90 mcg/actuation 1 inh inhalation QID PRN ascorbic acid (vitamin C) 500 mg PO DAILY budesonide-formoterol 160-4.5 mcg/actuation 2 puffs PO BID cyanocobalamin (vitamin B-12) 1,000 mcg PO DAILY digoxin 125 mcg PO Q2D diltiazem HCl 180 mg PO DAILY epoetin donna-epbx (Retacrit) 10,000 units subcut MoWeFr@0900 ezetimibe 10 mg PO DAILY ferrous sulfate 325 mg PO DAILY metformin 500 mg PO BIDWM pravastatin 80 mg PO DAILY tiotropium bromide 18 mcg PO DAILY torsemide 40 mg See Protocol PO BID warfarin 2.5 mg See Protocol PO DAILY HPI f/u HS request HPI Details Deny is a 72-year-old male past medical history of hypertension, hyperlipidemia, diabetes, chronic kidney disease, chronic atrial fibrillation, heart failure with preserved EF who was recently admitted to [facility] for symptomatic anemia, hemoglobin 7.0. He was treated with 2 units of packed cells and started on Procrit. He did not have findings of acute heart failure at that time. He was continued on his same torsemide. Today he reports that he has had some increase in leg swelling since his hospital discharge. He admits to sitting in a recliner much of the day and sleeping in that recliner at night. His breathing is overall unchanged. He has chronic shortness of breath with physical activity. He wears oxygen continually at 2 L. He no PND, coughing. He has edema in his lower extremities, right greater than left which is his usual. No chest discomfort at rest with activity. No heart palpitations, lightheadedness, presyncope, syncope, falls. Taking all meds as directed. No bleeding issues reported. is present. Tells me he has seen Dr. Jones for his anemia and will be undergoing a bone marrow biopsy in the near future. He recently had his labs reached checked but does not know the results. [facility] Medical History CHF (congestive heart failure) Chronic a-fib Partial small bowel obstruction Anemia Diabetes mellitus CKD (chronic kidney disease) HTN (hypertension) Biatrial enlargement Pulmonary hypertension Chronic heart failure with preserved ejection fraction (HFpEF) HLD (hyperlipidemia) Current use of anticoagulant therapy Surgical History History of nephrectomy Hx of hernia repair Family History Father Cancer Mother No problems noted. Social History Household Members: Spouse Housing: House Do you presently have visiting nurse or other home services: No Patient Tobacco Use Status: Former Tobacco user Second Hand Smoke Exposure: No service: No Review of Systems Const All systems reviewed & are unremarkable except as noted in HPI and below ENT Denies dizziness Card Details: bilateral lower leg swelling - right greater than left Denies chest pain, Denies chest pain at rest, Denies chest pain with activity, Denies rapid heart rate, Denies pedal edema, Denies edema, Reports leg edema, Denies lightheadedness, Denies palpitations, Reports dyspnea, Reports dyspnea on exertion and Denies orthopnea Resp Denies cough, Reports dyspnea and Reports dyspnea on exertion GI Denies hematochezia and Denies change in stool character Musc Denies abnormal gait, Denies limited range of motion, Denies muscle cramps, Denies muscle weakness, Denies numbness, Denies radiating pain into limb, Denies stiffness and Denies tingling Neuro Denies abnormal gait, Denies dizziness, Denies numbness and Denies tingling Endo Denies palpitations Physical Exam Vital Signs: Last Vital Signs Pulse 79 05/11/23 09:39 BP 114/62 05/11/23 09:39 BMI result Body Mass Index 30.8 Const Other: wearing O2 with nasal cannula General: cooperative, comfortable and no acute distress Orientation/consciousness: patient oriented x3 Neck Neck: Yes normal visual inspection Resp Effort & Inspection: normal respiratory effort Auscultation: rales (each lateral base), no rhonchi and no wheezes Cardio Jugular venous distension: no JVD Rate: regular rate Rhythm: abnormal rhythm Heart sounds: S1 normal heart sound present, S2 normal heart sound present, no murmurs and no rubs GI Inspection: Yes normal to inspection Neuro General: patient oriented x3 Extrem Other: edema in lower legs, R>L, mid calf down to feet Psych Appearance: grossly normal Mental Status: mental status grossly normal Speech and movement: Normal speech and movement present Office Procedures EKG Details: Today, read by me, Afib, PVCs in bigeminy pattern, rate 79, QTc 477ms [id number], Complete Assessment & Plan Assessment & Plan (1) CHF (congestive heart failure): Code(s): I50.9 - Heart failure, unspecified Plan: History of chronic heart failure with preserved EF. Echocardiogram 12/16/2022 showed EF 65-70% no regional wall motion abnormality, moderate to severe pulmonary hypertension. Recent hospital admission for shortness of breath, hypoxia. Was noted to have symptomatic anemia with hemoglobin 7.0 hematocrit 25. History of 2 units packed cells and started on Procrit. She was continued on his usual torsemide. A limited echocardiogram was done on 05/01/2023 showing mildly dilated RV with normal systolic function, moderately elevated RVSP with significantly elevated right atrial pressures. Moderate pulmonary hypertension. Today he reports that he has been feeling generally well since his hospital discharge. He has chronic shortness of breath and wears oxygen with 2 L. On exam he does not appear in decompensated heart failure. He does have some swelling in his lower extremities which could be from dependent edema. He sleeps in a recliner and is mostly sedentary. He continues on torsemide 40 mg b.i.d.. Labs done 04/27/2023 showed creatinine 1.56 which is typical for him. Instructed to take additional dose of torsemide for up to 3 days if he has increasing edema or increased shortness of breath. Signs and symptoms of heart failure reviewed with him. Cardiology follow-up 3 months, sooner if needed. (2) Chronic a-fib: Code(s): I48.20 - Chronic atrial fibrillation, unspecified Plan: History of chronic atrial fibrillation. He is treated with heart rate control using digoxin 0.25 mg every other day and diltiazem CD 180 mg daily. Heart rate is in normal range today. EKG done today shows atrial fibrillation with PVCs in a bigeminal pattern, rate 79, QTC 477 milliseconds. He does not notice any heart palpitations. Digoxin level 0.7 on 12/18/2022. Continue current med management. He is on Coumadin for anticoagulation. INR goal 2-3. He follows with the [facility] [place] antico[facility] and more recently the [facility]. Continue current meds with no change. (3) Pulmonary hypertension: Code(s): I27.20 - Pulmonary hypertension, unspecified Plan: Moderate pulmonary hypertension on recent echocardiogram. He follows with pulmonology and tells me he has an appointment tomorrow. (4) HTN (hypertension): Code(s): I10 - Essential (primary) hypertension Plan: Well controlled at present time. No med changes made (5) Enlarged thoracic aorta: Code(s): I77.89 - Other specified disorders of arteries and arterioles Plan: Echo done 12/16/2022 showing mild dilation of the sinus of Valsalva measuring 3.7 cm. Will be followed periodically on echoes Plan Time spent on chart review, documentation, interview and assessment Coding Level of Care Code Est Pt Level 4 (24438) Diagnoses CHF (congestive heart failure) I50.9 Chronic a-fib I48.20 Pulmonary hypertension I27.20 HTN (hypertension) I10 Enlarged thoracic aorta I77.89 CPT Codes EKG - CPT: 67416-[id number], Complete ([id number]) Time Spent (min) 28
== END 2023-05-11 10:32 | disposition home or self-care (01) ==
PROVIDERS: PCP Internal Medicine; Visit Provider Nurse Practitioner Family
DX: I50.9 Heart failure, unspecified (principal); I48.20 Chronic atrial fibrillation, unspecified; I27.20 Pulmonary hypertension, unspecified; I10 Essential (primary) hypertension; I77.89 Other specified disorders of arteries and arterioles
CPT/HCPCS: 93010; 99214

== ENCOUNTER → 2023-05-11 09:26 | Outpatient (BNVA) | payer MEDICARE, SELFPAY | PROVIDERS: PCP Internal Medicine; Visit Provider Nurse Practitioner Family | DX: I11.0 Hypertensive heart disease with heart failure (principal); I50.9 Heart failure, unspecified; I48.20 Chronic atrial fibrillation, unspecified; I27.20 Pulmonary hypertension, unspecified; I77.89 Other specified disorders of arteries and arterioles | CPT/HCPCS: 93005; 99212 ==

== ENCOUNTER → 2023-05-12 10:59 | Outpatient (BNVA) | payer MEDICARE, SELFPAY | PROVIDERS: PCP Internal Medicine; Visit Provider Internal Medicine ==

== ENCOUNTER 2023-05-14 14:15 | Outpatient (AMB) | payer MEDICARE, SELFPAY ==
--- NOTE | 2023-05-14 15:00 | MHC.OFFVISCO ---
Intake Intake Visit Reasons: Anticoagulation Allergies No Known Allergies Allergy (Verified 05/14/23 14:16) Medication List - Last Reconciled 05/14/23 by Yumiko Gupta RN albuterol sulfate 90 mcg/actuation 1 inh inhalation QID PRN ascorbic acid (vitamin C) 500 mg PO DAILY budesonide-formoterol 160-4.5 mcg/actuation 2 puffs PO BID cyanocobalamin (vitamin B-12) 1,000 mcg PO DAILY digoxin 125 mcg PO Q2D diltiazem HCl 180 mg PO DAILY epoetin donna-epbx (Retacrit) 10,000 units subcut MoWeFr@0900 ezetimibe 10 mg PO DAILY ferrous sulfate 325 mg PO DAILY metformin 500 mg PO BIDWM pravastatin 80 mg PO DAILY tiotropium bromide 18 mcg PO DAILY torsemide 40 mg See Protocol PO BID warfarin 2.5 mg See Protocol PO DAILY Nursing Note Shanti from [facility] called with INR result INR 1.5 out of therapeutic range Medications and supplements reviewed -Pt has 5mg and 2.5mg warfarin tabs and states that he is correctly taking the correct dose, nurs advised to please assess pill box due labile INR values, INR values may also be labile due to health condition. Patient status: going for bone marrow bx 05/21/23 due to anemi, a on procrit DOSE 5MG TODAY AND TOMORROW THEN HOLD WARFARIN X 5 DAYS, THEN DOSE 5MG X 3 DAYS Thu SAT, 2.5MG SUN, 5MG MON THEN RECHECK INR 05/26/23 AVOIDING GREENS WHILE OFF WARFARIN Medications or supplements: no other changes with prescriptions Diet: good Denies any signs and symptoms of bleeding or clotting or unusual bruising Bleeding, bruising, clotting discussed Nutritional guidance given: avoid greens until INR therapeutic Dose: 5mg today and tomorrow then hold x 5 days per md orders then resume usual dose after starting with 5mg x 3 days then 5mg x 3 days/ 2.5mg x 4days F/U INR Date : 05/19/23 to make sure pt clearing warfarin then 05/26/23 after resuming warfarin Patient verbalizing understanding of instructions given. 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
== END 2023-05-14 15:11 | disposition home or self-care (01) ==
LOC: HO.ACS 14:15
PROVIDERS: PCP Internal Medicine; Visit Provider Internal Medicine
DX: Z79.01 Long term (current) 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 (principal)

== ENCOUNTER → 2023-05-14 14:15 | Outpatient (BNVA) | payer MEDICARE, SELFPAY | PROVIDERS: PCP Internal Medicine; Visit Provider Internal Medicine | DX: I48.20 Chronic atrial fibrillation, unspecified (principal); Z79.01 Long term (current) 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; Z51.81 Encounter for therapeutic drug level monitoring | CPT/HCPCS: 99211 ==

== ENCOUNTER → 2023-05-22 09:43 | Outpatient (BNVA) | payer MEDICARE, SELFPAY | PROVIDERS: PCP Internal Medicine; Visit Provider Internal Medicine ==

== ENCOUNTER → 2023-05-26 14:01 | Outpatient (BNVA) | payer MEDICARE, SELFPAY | PROVIDERS: PCP Internal Medicine; Visit Provider Internal Medicine ==

== ENCOUNTER → 2023-05-29 15:27 | Outpatient (BNVA) | payer MEDICARE, SELFPAY | PROVIDERS: PCP Internal Medicine; Visit Provider Internal Medicine ==

== ENCOUNTER → 2023-06-02 14:21 | Outpatient (BNVA) | payer MEDICARE, SELFPAY | PROVIDERS: PCP Internal Medicine; Visit Provider Internal Medicine ==

== ENCOUNTER → 2023-06-05 11:30 | Outpatient (BNVA) | payer MEDICARE, SELFPAY | PROVIDERS: PCP Internal Medicine; Visit Provider Internal Medicine ==

== ENCOUNTER → 2023-06-09 10:04 | Outpatient (BNVA) | payer MEDICARE, SELFPAY | PROVIDERS: PCP Internal Medicine; Visit Provider Internal Medicine ==

== ENCOUNTER 2023-06-17 10:49 | Outpatient (AMB) | payer MEDICARE, SELFPAY ==
[2023-06-17 10:55] LABS: Prothrombin Time Whole Bld POC 38.3 sec (11.1-13.5); ~PT, ~INR - Anti Coag Clinic 3.2 (0.9-1.1)
--- NOTE | 2023-06-17 11:03 | MHC.OFFVISCO ---
Intake Intake Visit Reasons: Anticoagulation Allergies No Known Allergies Allergy (Verified 06/17/23 10:49) Medication List - Last Reconciled 06/17/23 by Aliza Segura RN albuterol sulfate 90 mcg/actuation 1 inh inhalation QID PRN ascorbic acid (vitamin C) 500 mg PO DAILY budesonide-formoterol 160-4.5 mcg/actuation 2 puffs PO BID cyanocobalamin (vitamin B-12) 1,000 mcg PO DAILY digoxin 125 mcg PO Q2D diltiazem HCl 180 mg PO DAILY epoetin donna-epbx (Retacrit) 10,000 units subcut MoWeFr@0900 ezetimibe 10 mg PO DAILY ferrous sulfate 325 mg PO DAILY metformin 500 mg PO BIDWM pravastatin 80 mg PO DAILY tiotropium bromide 18 mcg PO DAILY torsemide 40 mg See Protocol PO BID warfarin 2.5 mg See Protocol PO DAILY warfarin 5 mg See Protocol PO DAILY Nursing Note PT.HAS RETURNED TO [facility] AFTER 7 MONTHS WITH [facility]. PT.ARRIVES AMBULATORY WITH OXYGEN. IS WITH PT. PT.STATES THAT HE FEELS WELL AND USES THE 02 CONTINUOUSLY NOW. NO CP OR CHANGES IN MEDS SINCE LAST INR CHECK WITH [facility]. DECREASE DOSE SLIGHTLY TODAY THEN RESUME PRESENT DOSE AND FOLLOW-UP IN 2 WEEKS. PT.AND VERB.GOOD UNDERSTANDING OF DOSING INSTR. 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
== END 2023-06-17 11:07 | disposition home or self-care (01) ==
LOC: HO.ACS 10:49
PROVIDERS: PCP Internal Medicine; Visit Provider Internal Medicine
DX: Z79.01 Long term (current) 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 (principal)

== ENCOUNTER → 2023-06-17 10:49 | Outpatient (BNVA) | payer MEDICARE, SELFPAY | PROVIDERS: PCP Internal Medicine; Visit Provider Internal Medicine | DX: I48.20 Chronic atrial fibrillation, unspecified (principal); Z79.01 Long term (current) 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; Z51.81 Encounter for therapeutic drug level monitoring | CPT/HCPCS: 85610; 99211 ==

== ENCOUNTER 2023-07-01 10:44 | Outpatient (AMB) | payer MEDICARE, SELFPAY ==
[2023-07-01 11:16] LABS: Prothrombin Time Whole Bld POC 33.9 sec (11.1-13.5); ~PT, ~INR - Anti Coag Clinic 2.8 (0.9-1.1)
--- NOTE | 2023-07-01 11:16 | MHC.OFFVISCO ---
Intake Intake Visit Reasons: Anticoagulation Allergies No Known Allergies Allergy (Verified 07/01/23 11:09) Medication List - Last Reconciled 07/01/23 by Breanna Jose RN albuterol sulfate 90 mcg/actuation 1 inh inhalation QID PRN ascorbic acid (vitamin C) 500 mg PO DAILY budesonide-formoterol 160-4.5 mcg/actuation 2 puffs PO BID cyanocobalamin (vitamin B-12) 1,000 mcg PO DAILY digoxin 125 mcg PO Q2D diltiazem HCl 180 mg PO DAILY epoetin donna-epbx (Retacrit) 10,000 units subcut MoWeFr@0900 ezetimibe 10 mg PO DAILY ferrous sulfate 325 mg PO DAILY metformin 500 mg PO BIDWM pravastatin 80 mg PO DAILY tiotropium bromide 18 mcg PO DAILY torsemide 40 mg (2 x 20 mg) PO BID 30 days warfarin 2.5 mg See Protocol PO DAILY warfarin 5 mg See Protocol PO DAILY Nursing Note INR: 2.8- in therapeutic range of 2-3 Medications and supplements reviewed No changes in health, diet, medications, or supplements, Denies any signs and symptoms of bleeding or bruising or clotting. Bleeding, bruising, clotting discussed Nutritional guidance given Dose: 5mg x 6, 2.5mg x 1 F/U INR: 2 weeks Patient verbalizes understanding of instructions given pt s/o present for visit. she states pt has a 'boil'on back- occ bleed issue- pt states scratched his back with a piece of wood pt instructed to not do this - risk of bleed and infection. pt states has derm appt upcoming for this pt ? 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
== END 2023-07-01 11:26 | disposition home or self-care (01) ==
LOC: HO.ACS 10:44
PROVIDERS: PCP Internal Medicine; Visit Provider Internal Medicine
DX: Z79.01 Long term (current) 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 (principal)

== ENCOUNTER → 2023-07-01 10:44 | Outpatient (BNVA) | payer MEDICARE, SELFPAY | PROVIDERS: PCP Internal Medicine; Visit Provider Internal Medicine | DX: I48.20 Chronic atrial fibrillation, unspecified (principal); Z79.01 Long term (current) 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; Z51.81 Encounter for therapeutic drug level monitoring | CPT/HCPCS: 85610; 99211 ==

== ENCOUNTER 2023-07-22 11:04 | Outpatient (REF) | payer MEDICARE, SELFPAY ==
[2023-07-22 11:56] LABS: Prothrombin Time 59.3 SEC (11.1-13.3)
[2023-07-22 12:00] LABS: INTERNATIONAL NORM RATIO 4.9 (0.9-1.1)
== END 2023-07-22 11:05 | disposition home or self-care (01) ==
LOC: HO.LAB 11:04
PROVIDERS: PCP Internal Medicine; Visit Provider Internal Medicine
DX: I48.20 Chronic atrial fibrillation, unspecified (principal); Z51.81 Encounter for therapeutic drug level monitoring; Z79.01 Long term (current) 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
CPT/HCPCS: 36415; 85610; 99212

== ENCOUNTER 2023-07-22 11:04 | Outpatient (AMB) | payer MEDICARE, SELFPAY ==
[2023-07-22 11:24] LABS: Prothrombin Time Whole Bld POC 67.2 sec (11.1-13.5); ~PT, ~INR - Anti Coag Clinic 5.6 (0.9-1.1)
--- NOTE | 2023-07-22 11:29 | MHC.OFFVISCO ---
Intake Intake Visit Reasons: Anticoagulation Allergies No Known Allergies Allergy (Verified 07/22/23 11:19) Medication List - Last Reconciled 07/22/23 by Anamaria Villarreal RN albuterol sulfate 90 mcg/actuation 1 inh inhalation QID PRN ascorbic acid (vitamin C) 500 mg PO DAILY budesonide-formoterol 160-4.5 mcg/actuation 2 puffs PO BID cyanocobalamin (vitamin B-12) 1,000 mcg PO DAILY digoxin 125 mcg PO Q2D diltiazem HCl 180 mg PO DAILY epoetin donna-epbx (Retacrit) 10,000 units subcut MoWeFr@0900 ezetimibe 10 mg PO DAILY ferrous sulfate 325 mg PO DAILY metformin 500 mg PO BIDWM pravastatin 80 mg PO DAILY tiotropium bromide 18 mcg PO DAILY torsemide 40 mg (2 x 20 mg) PO BID 30 days warfarin 2.5 mg See Protocol PO DAILY warfarin 5 mg See Protocol PO DAILY Nursing Note INR 5.6? out of therapeutic range of 2-3, Pt sent to lab; Lab draw 4.9 Dr Bennett's office called and results with plan reported to Eli at 12:05. Medications and supplements reviewed Patient status: pt denies any change in health, states he took tylenol X1 yesterday and 1 dose today Medications or supplements: no changes Diet: no change Denies any signs and symptoms of bleeding or clotting or unusual bruising Bleeding, bruising, clotting discussed. Pt aware increased risk for bleeding, Avoid high risk activities. Go to ED if necessary for injury/trauma. Nutritional guidance given: eat greens today and tomorrow, Dose: no Warfarin today, 2.5mg tomorrow F/U INR Date : 2 days?? Patient verbalizing understanding of instructions given. 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
== END 2023-07-22 13:16 | disposition home or self-care (01) ==
LOC: HO.ACS 11:04
PROVIDERS: PCP Internal Medicine; Visit Provider Internal Medicine
DX: Z79.01 Long term (current) 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 (principal)

== ENCOUNTER 2023-07-24 11:11 | Outpatient (AMB) | payer MEDICARE, SELFPAY ==
[2023-07-24 11:18] LABS: Prothrombin Time Whole Bld POC 38.5 sec (11.1-13.5); ~PT, ~INR - Anti Coag Clinic 3.2 (0.9-1.1)
--- NOTE | 2023-07-24 11:25 | MHC.OFFVISCO ---
Intake Intake Visit Reasons: Anticoagulation Allergies No Known Allergies Allergy (Verified 07/24/23 11:12) Medication List - Last Reconciled 07/24/23 by Aliza Segura RN albuterol sulfate 90 mcg/actuation 1 inh inhalation QID PRN ascorbic acid (vitamin C) 500 mg PO DAILY budesonide-formoterol 160-4.5 mcg/actuation 2 puffs PO BID cyanocobalamin (vitamin B-12) 1,000 mcg PO DAILY digoxin 125 mcg PO Q2D diltiazem HCl 180 mg PO DAILY epoetin donna-epbx (Retacrit) 10,000 units subcut MoWeFr@0900 ezetimibe 10 mg PO DAILY ferrous sulfate 325 mg PO DAILY metformin 500 mg PO BIDWM pravastatin 80 mg PO DAILY tiotropium bromide 18 mcg PO DAILY torsemide 40 mg (2 x 20 mg) PO BID 30 days warfarin 2.5 mg See Protocol PO DAILY warfarin 5 mg See Protocol PO DAILY Nursing Note NO CHANGE IN RESP.STATUS, BUT PT. REFUSES W/C ASSIST.TODAY. NO CP,DIET/MED CHANGES,FALLS OR SX OF BLEEDING. 2.5MGM TODAY AND DECREASE WEEKLY DOSE SLIGHTLY AND FOLLOW-UP IN 1 WEEK. GOOD UNDERSTANDING OF DOSING INSTR.AND CHANGES VERB BY PT. Anti-Coag Initial Assessment Social Hx Patient Tobacco Use Status: Former Tobacco user Alcohol intake frequency: does not drink Coding Level of Care Code Est Patient Level 1 Diagnoses Current use of anticoagulant therapy Z79.01 Assessment & Plan Assessment & Plan (1) Current use of anticoagulant therapy: Code(s): Z79.01 - longterm (current) 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
== END 2023-07-24 11:28 | disposition home or self-care (01) ==
LOC: HO.ACS 11:11
PROVIDERS: PCP Internal Medicine; Visit Provider Internal Medicine
DX: Z79.01 Long term (current) 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 (principal)

== ENCOUNTER → 2023-07-24 11:11 | Outpatient (BNVA) | payer MEDICARE, SELFPAY | PROVIDERS: PCP Internal Medicine; Visit Provider Internal Medicine | DX: I48.20 Chronic atrial fibrillation, unspecified (principal); Z79.01 Long term (current) 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; Z51.81 Encounter for therapeutic drug level monitoring | CPT/HCPCS: 85610; 99211 ==

== ENCOUNTER 2023-07-30 10:20 | Inpatient (IN) | payer MEDICARE, SELFPAY ==
[2023-07-30] VITALS (10 sets, daily range): BP systolic 101–142; BP diastolic 33–90; PULSE 63–89; RESP 14–24; TEMP 36.3–36.8; O2SAT 80–100; BMI 31.9; BMI 31.4
--- NOTE | ~2023-07-30 | XR_ITS ---
EXAMINATION: XR CHEST CLINICAL INFORMATION: Lower extremity edema. COMPARISON: 04/21/2023 TECHNIQUE: 2 views of the chest were obtained. FINDINGS: The lungs appear hyperexpanded. No focal consolidation. No pleural effusion. Prominent pulmonary vasculature. Cardiac silhouette is enlarged but stable. XR/XR chest 2V IMPRESSION: Stable examination. No acute abnormality.
--- NOTE | 2023-07-30 11:06 | ECG_ITS ---
Test Reason : dyspnea Blood Pressure : / mmHG Vent. Rate : 063 BPM Atrial Rate : 000 BPM P-R Int : 000 ms QRS Dur : 102 ms QT Int : 454 ms P-R-T Axes : 000 057 -66 degrees QTc Int : 464 ms Atrial fibrillation with premature ventricular or aberrantly conducted complexes Low voltage QRS Nonspecific ST and T wave abnormality Abnormal ECG When compared with ECG of 21-APR-2023 16:40, No significant change was found Referred By: Kendal Diamond Electronically Signed By:JOSE KING
--- NOTE | 2023-07-30 12:45 | PC.NURSE ---
patient a&ox3, vss, net sql developer applied-afib on monitor, labs drawn, rectal exam performed by provider, lungs clear throughout, pt states he wears 2L NC at baseline and has had increased SMART- pt currently speaking in full sentences and states he is not sob at rest. call finnegan within reach, will continue to monitor.
[2023-07-30 12:49] LABS: MANUAL DIFF FLAG NO
[2023-07-30 12:52] LABS: Basophils Percent Auto 0.3 % (0-2); Eosinophils Absolute Auto 0.2 X10*3/uL (0.0-0.4); Eosinophils Percent Auto 2.6 % (0-4); Hematocrit 23.1 % (42.0-52.0); Imm Gran Abs Auto 0.02 X10*3/uL (0.00-0.03); Imm Gran Pct Auto 0.3 % (0.0-0.4); Lymphocytes Absolute Auto 0.9 X10*3/uL (1.2-4.9); Lymphocytes Percent Auto 14.5 % (20-40); Mean Corpuscular Hemoglobin 28.5 pg (27.0-33.0); Mean Corpuscular Volume 98.3 fL (80.0-98.0); Mean Platelet Volume 10.4 fL (9.4-12.4); Monocytes Absolute Auto 0.7 X10*3/uL (0.1-1.2); Monocytes Percent Auto 10.9 % (2-11); Neutrophils Absolute Auto 4.3 x10*3/uL (2.0-8.3); Neutrophils Percent Auto 71.4 % (45-73); Platelet Count 260 X10*3/uL (160-400); Red Blood Count 2.35 X10*6/uL (4.60-5.80); Red Cell Distribution Width 19.8 % (11.0-16.0); White Blood Count 6.1 X10*3/uL (4.8-10.8)
--- NOTE | 2023-07-30 12:52 | ED.GENADULT ---
HPI - General Adult General Chief complaint: General Medical Stated complaint: DIFF BREATHING,ABN LABS PER EMS Time Seen by Provider: 07/30/23 12:26 Source: patient and old records reviewed Mode of arrival: EMS Limitations: no limitations History of Present Illness HPI narrative: 73 yo male with PMH of afib on coumadin, CHF 65-70%, chronic leg edema and venous insufficiency, HTN, HLD, pulm HTN on chronic O2 at home notes he has recently felt SMART for the past couple of weeks so his PCP sent off some blood work and he was found to be anemic. No change in fevers, cough, leg edema. MD complaint: dyspnea on exertion, anemia Onset (ago): week(s) (2) Radiation: non-radiation Severity: moderate Relieving factors: rest Exacerbating factors: other (exertion) Associated symptoms: other (leg edema, fatigue, dyspnea on exertion) Treatments prior to arrival: none Related Data Home Medications Medication Instructions Recorded Confirmed ascorbic acid (vitamin C) 500 mg 500 mg PO DAILY 05/01/20 07/22/23 tablet budesonide-formoterol HFA 160 2 puff PO BID 05/01/20 07/22/23 mcg-4.5 mcg/actuation aerosol inhaler ezetimibe 10 mg tablet 10 mg PO DAILY 05/01/20 07/22/23 ferrous sulfate 325 mg (65 mg 325 mg PO DAILY 05/01/20 07/22/23 iron) tablet metformin 500 mg tablet 500 mg PO BIDWM 05/01/20 07/22/23 tiotropium bromide 18 mcg capsule 18 mcg PO DAILY 05/01/20 07/22/23 with inhalation device albuterol sulfate 90 mcg/actuation 1 inh inhalation QID PRN shortness 11/10/22 07/22/23 aerosol inhaler of breath or wheezing cyanocobalamin (vitamin B-12) 1,000 mcg PO DAILY 12/15/22 07/22/23 1,000 mcg tablet warfarin 2.5 mg tablet 2.5 mg PO DAILY 04/03/23 07/24/23 diltiazem HCl 180 mg 180 mg PO DAILY 05/04/23 07/22/23 capsule,extended release 24 hr warfarin 5 mg tablet 5 mg PO DAILY 05/22/23 07/24/23 Previous Rx's Medication Instructions Recorded digoxin 125 mcg (0.125 mg) tablet 125 mcg PO Q2D #30 tabs 12/21/22 pravastatin 80 mg tablet 80 mg PO DAILY #90 tabs 04/02/23 epoetin donna-epbx 10,000 unit/mL 10,000 unit subcut MoWeFr@0900 #10 04/27/23 injection solution (Retacrit) mL torsemide 20 mg tablet 40 mg (2 x 20 mg) PO BID 30 days 06/19/23 #120 tabs metolazone 2.5 mg tablet 2.5 mg PO DAILY #30 tabs 07/29/23 Allergies Allergy/AdvReac Type Severity Reaction Status Date / Time No Known Allergies Allergy Verified 07/24/23 11:12 Review of Systems Review of Systems: Constitutional : No Fever, No Chills ENT/Mouth : No sore throat, No Rhinorrhea, No Swallowing Difficulty Eyes: No Eye Pain, No Swelling, No Redness Cardiovascular : No Chest Pain, positive SOB, No Orthopnea, positive Edema Respiratory : No Cough, No Sputum, No Wheezing, positive dyspnea Gastrointestinal : No Nausea, No Vomiting, No Diarrhea, No abdominal Pain, No Hematochezia, No Melena Genitourinary : No Dysuria, No Urinary Frequency, No Hematuria Musculoskeletal : No joint pain, No Myalgias Skin : No Skin Lesions, No rash Neuro : No Weakness, No Numbness, No Dizziness, No Headache Psych : No Anxiety/Panic, No Depression All other systems reviewed and are negative [facility] Past Medical History Attestation statement: The following information was validated with the patient. Source: old records reviewed Medical History Macrocytic anemia CHF (congestive heart failure) Chronic a-fib Partial small bowel obstruction Anemia Diabetes mellitus CKD (chronic kidney disease) HTN (hypertension) Biatrial enlargement Pulmonary hypertension Chronic heart failure with preserved ejection fraction (HFpEF) HLD (hyperlipidemia) Current use of anticoagulant therapy Surgical History History of nephrectomy Hx of hernia repair Family History Family History Father Cancer Mother No problems noted. Social History Social History Household Members: Spouse Housing: House Do you presently have visiting nurse or other home services: No Patient Tobacco Use Status: Former Tobacco user Smoked in Last 30 Days: No Second Hand Smoke Exposure: No Use of substances other than those prescribed or required for medical reasons: No Advance Directives: Yes Advance Directives Information Provided: No Advance Directives on File: No service: No Physical Exam ED Vital Signs: Vital Signs - 24 hr 07/30/23 10:41 07/30/23 12:40 07/30/23 13:56 Temperature 98 F 97.5 F 97.5 F Pulse Rate 68 63 71 Respiratory Rate 24 H 18 14 Blood Pressure 101/54 L 109/33 L 134/69 Pulse Oximetry 100 98 Oxygen Delivery Method Nasal Cannula Nasal Cannula Oxygen Flow Rate 2 07/30/23 14:15 Temperature 97.5 F Pulse Rate 80 Respiratory Rate 20 Blood Pressure 131/81 Pulse Oximetry Oxygen Delivery Method Oxygen Flow Rate BMI result Body Mass Index 31.9 Appearance: Alert. Oriented X3. No acute distress. Eyes: Pupils equal, round and reactive to light. ENT: Pharynx normal. Neck: Normal inspection. Neck supple. CVS: Normal heart rate and rhythm. Pulses normal. Respiratory: No respiratory distress. Breath sounds diminished with rales at the base Abdomen: Soft and non-tender. Rectal: brown stool Skin: Skin warm and dry. Normal skin color. Normal skin turgor. Extremities: 2-3+ bilateral symmetric pitting lower extremity edema. No calf ttp Neuro: Oriented X 3. No motor deficit. No sensory deficit. Medical Decision Making Medical Decision Making [facility] Narrative: 73 yo male with PMH of afib on coumadin, CHF 65-70%, chronic leg edema and venous insufficiency, HTN, HLD, pulm HTN on chronic O2 at home here with SMART at home for a week or so at this time no CP, no sob at rest - will obtain labs, guiac study, INR and he denies active GIB symptoms - will transfuse and give IV lasix, admit overnight Differential Diagnosis Differential Diagnoses: The differential diagnosis associated with the presentation includes chronic anemia, CHF, GIB Admission/Observation Consideration of admission/observation: Escalation of care including admission/observation considered admit overnight Consult Healthcare Provider Management of the patient was discussed with: Hospitalist (will admit) Lab Data [facility] Lab Attestation statement: I reviewed the patient's lab results. 07/30/23 12:33 07/30/23 12:33 Labs: Lab Results 07/30/23 07/30/23 Range/Units 12:33 12:47 WBC 6.1 (4.8-10.8) X10*3/uL RBC 2.35 L D (4.60-5.80) X10*6/uL Hgb 6.7 L* D (14.0-18.0) g/dl Hct 23.1 L D (42.0-52.0) % MCV 98.3 H (80.0-98.0) fL MCH 28.5 (27.0-33.0) pg MCHC 29.0 L (31.0-36.0) g/dl RDW 19.8 H (11.0-16.0) % Plt Count 260 (160-400) X10*3/uL MPV 10.4 (9.4-12.4) fL Immature Gran % (Auto) 0.3 (0.0-0.4) % Neut % (Auto) 71.4 (45-73) % Lymph % (Auto) 14.5 L (20-40) % [place] % (Auto) 10.9 (2-11) % Eos % (Auto) 2.6 (0-4) % Baso % (Auto) 0.3 (0-2) % Lymph # (Auto) 0.9 L (1.2-4.9) X10*3/uL [place] # (Auto) 0.7 (0.1-1.2) X10*3/uL Eos # (Auto) 0.2 (0.0-0.4) X10*3/uL Baso # (Auto) 0.0 (0.0-0.2) X10*3/uL Abs Immat Gran (auto) 0.02 (0.00-0.03) X10*3/uL Absolute Neuts (auto) 4.3 (2.0-8.3) x10*3/uL Absolute Nucleated RBC 0.000 (0.0-0.012) X10*3/uL Nucleated RBC % (auto) 0.0 (0.0-0.2) /100WBC PT 59.4 H (11.1-13.3) SEC INR 4.9 H (0.9-1.1) Sodium 145 (135-145) mmol/L Potassium 3.7 (3.3-5.1) mmol/L Chloride 98 (96-108) mmol/L Carbon Dioxide 37 H (22-29) mmol/L Anion Gap 14 (12-20) BUN 20 H (9-16) mg/dL Creatinine 1.73 H (0.5-1.4) mg/dL Estim Creat Clear Calc 41.9 Estimated GFR 39 Random Glucose 105 (60-115) mg/dL Calcium 8.9 (8.4-10.2) mg/dL Total Bilirubin 0.4 (0.0-1.0) mg/dL AST 21 (5-37) U/L ALT 9 (0-40) U/L Alkaline Phosphatase 45 (39-117) U/L Troponin I High Sens 8.5 (<3.5-35.0) ng/L B-Natriuretic Peptide 129 H (<100) pg/mL Total Protein 6.9 (6.5-8.0) g/dL Albumin 3.7 (3.5-5.0) g/dL Stool Occult Blood POSITIVE (NEGATIVE) Blood Type O Positive Antibody Screen NEGATIVE Crossmatch See Detail Independent Interpretation I performed an independent interpretation of an: EKG and Plain X-Ray (normal ) Interpretation: Rate: 63 Rhythm: afib with PVCs [place]: normal Normal QRS complex. ST T wave : nonspecific ST T wave chagnes, scooping ST seg lateral leads - slightly more pronounced from previous qTC: 464 prior studies: The study has been interpreted contemporaneously by me. . Radiology Impression Discussion of test interpretation with radiology: I have reviewed the radiologist's reading. External Record Review External record reviewed: Inpatient record Critical Care Time Critical Care Time Critical Care Time: Yes Total Critical Care Time: 45 Attestation: transfusion, review of records. I attest to this time spent taking care of the patient Discharge Plan Discharge Clinical Impression: Acute on chronic anemia, Guaiac positive stools, SMART (dyspnea on exertion) Patient Disposition: Admitted As Inpatient
[2023-07-30 12:55] LABS: OBS Int Ctl Valid YES; OBS1 POSITIVE (NEGATIVE)
[2023-07-30 13:01] LABS: Hemoglobin 6.7 g/dl (14.0-18.0)
[2023-07-30 13:03] LABS: INTERNATIONAL NORM RATIO 4.9 (0.9-1.1); Prothrombin Time 59.4 SEC (11.1-13.3)
[2023-07-30 13:09] LABS: Alanine Aminotransferase 9 U/L (0-40); Albumin Level 3.7 g/dL (3.5-5.0); Alkaline Phosphatase 45 U/L (39-117); Anion Gap 14 (12-20); Aspartate Amino Transferase 21 U/L (5-37); Bilirubin Total 0.4 mg/dL (0.0-1.0); Blood Urea Nitrogen 20 mg/dL (9-16); Calcium 8.9 mg/dL (8.4-10.2); Carbon Dioxide 37 mmol/L (22-29); Chloride 98 mmol/L (96-108); Creatinine Clr Calc Pharmacy 41.9; Estimated Glomerular Filt Rate 39; Glucose Random 105 mg/dL (60-115); Potassium 3.7 mmol/L (3.3-5.1); Sodium 145 mmol/L (135-145); Total Protein 6.9 g/dL (6.5-8.0)
[2023-07-30 13:15] LABS: B Type Natriuretic Peptide 129 pg/mL (<100)
--- NOTE | 2023-07-30 14:16 | PC.NURSE ---
pt a&ox3, blood started, vss, hospital monitor afib, pt on 2L NC at baseline, denies pain/discomfort, call finnegan within reach, family at bedside, will continue to monitor.
[2023-07-30 14:18] LABS: Troponin-I High Sensitivity 8.5 ng/L (<3.5-35.0)
--- NOTE | 2023-07-30 15:31 | PHA.MEDREC ---
Addendum entered by Pamella Mccarthy RPh 07/30/23 15:41: Per Anticoag clinic reports 07/24/23, patient was suppose to decrease dose of warfarin however patient continued on same dose and was suppose to follow-up tomorrow with clinic. Also confirmed patient taking digoxin sututhsa instead of every other day per prescription. Patient takes digoxin at night instead of the morning. Original Note: Pharmacy Consult ? Medication Reconciliation Pharmacy has completed the medication reconciliation. Confirmed medications with a list from [facility] and with patient. He reports that he is taking Warfarin 2.5mg on Thursday and 5mg Warfarin ..
--- NOTE | 2023-07-30 15:56 | P.HPHOSP_ITS ---
History of Present Illness Date of Service: 07/30/23 Attending physician on admission: Marcus Abrams Chief Complaint: abnormal labs, sob This is a 72-year-old male with history of heart failure with preserved ejection fraction, pulmonary hypertension, hypertension, CKD stage 3, COPD with chronic hypoxemic respiratory failure on 2 L supplemental O2 at baseline, vri-kqarowo-xueqrgfdo type 2 diabetes, chronic atrial fibrillation anticoagulated with Coumadin and on digoxin, hyperlipidemia, venous insufficiency, and chronic anemia who was sent to the ED due to abnormal labs. He was seen in his PCP's office and had outpatient routine labs drawn yesterday. He was called this morning and requested to come to the emergency department due to anemia. Patient reports increasing dyspnea on exertion from his baseline. He denies any hematuria, blood in his stool. NSAIDs or drink alcohol. In the emergency department his INR was noted to be elevated at 4.9, was noted to have heme-positive stools. He reports a history of anemia and does follow with a slitting machine operator in [place], he has had a bone marrow examination recently but he is unsure what the results were. He has had both an endoscopy and colonoscopy multiple years ago which reportedly normal. Review of Systems 2 Review of Systems: Yes all other systems are reviewed and are negative Constitutional: Constitutional: Denies chills and Denies fever(s) Cardiovascular: Cardiovascular: Denies chest pain, Denies palpitations and Reports dyspnea on exertion Respiratory: Respiratory: Reports dyspnea on exertion Gastrointestinal: Gastrointestinal: Denies abdominal pain, Denies nausea and Denies vomiting Endocrine: Endocrine: Denies palpitations [facility] Medical History Macrocytic anemia CHF (congestive heart failure) Chronic a-fib Partial small bowel obstruction Anemia Diabetes mellitus CKD (chronic kidney disease) HTN (hypertension) Biatrial enlargement Pulmonary hypertension Chronic heart failure with preserved ejection fraction (HFpEF) HLD (hyperlipidemia) Current use of anticoagulant therapy Family History Father Cancer Mother No problems noted. Surgical History History of nephrectomy Hx of hernia repair Social History Household Members: Spouse Housing: House Do you presently have visiting nurse or other home services: No Patient Tobacco Use Status: Former Tobacco user Smoked in Last 30 Days: No Second Hand Smoke Exposure: No Use of substances other than those prescribed or required for medical reasons: No Advance Directives: Yes Advance Directives Information Provided: No Advance Directives on File: No service: No Meds Allergies Allergy/AdvReac Type Severity Reaction Status Date / Time No Known Allergies Allergy Verified 07/24/23 11:12 Active Medications: Current Medications Acetaminophen (Acetaminophen 325 Mg Tablet) 650 mg PO Q6H PRN PRN Reason: Pain, Mild (Pain Scale 1-3) Docusate Sodium (Docusate Sodium 100 Mg Capsule) 100 mg PO DAILY PRN PRN Reason: Constipation Furosemide (Furosemide 20 Mg/2 Ml Vial) 20 mg IVPUSH ONCE MERT; Protocol Ondansetron HCl (Ondansetron Hcl 4 Mg/2 Ml Vial) 4 mg IVPUSH Q8H PRN PRN Reason: Nausea and Vomiting Sodium Chloride (0.9 % Sodium Chloride Flush 3 Ml Syringe) [address] [facility] Home Medications Medication Instructions Recorded Confirmed Last Taken Type ascorbic acid (vitamin C) 500 mg 500 mg PO DAILY 05/01/20 07/30/23 07/30/23 History tablet ezetimibe 10 mg tablet 10 mg PO DAILY 05/01/20 07/30/23 07/30/23 History ferrous sulfate 325 mg (65 mg 325 mg PO DAILY 05/01/20 07/30/23 07/30/23 History iron) tablet metformin 500 mg tablet 500 mg PO BIDWM 05/01/20 07/30/23 07/30/23 History tiotropium bromide 18 mcg capsule 18 mcg PO DAILY 05/01/20 07/30/23 07/30/23 History with inhalation device albuterol sulfate 90 mcg/actuation 1 inh inhalation QID PRN shortness 11/10/22 07/30/23 07/30/23 History aerosol inhaler of breath or wheezing cyanocobalamin (vitamin B-12) 1,000 mcg PO DAILY 12/15/22 07/30/23 07/30/23 History 1,000 mcg tablet warfarin 2.5 mg tablet 2.5 mg PO MO 04/03/23 07/30/23 07/30/23 History warfarin 5 mg tablet 5 mg PO SUTUWETHFRSA 05/22/23 07/30/23 07/30/23 History digoxin 125 mcg (0.125 mg) tablet 125 mcg PO SUTUTHSA@2100 07/30/23 07/30/23 07/29/23 History fluticasone furoate 100 1 inh inhalation DAILY 07/30/23 07/30/23 07/30/23 History mcg-vilanterol 25 mcg/dose inhalation powder (Breo Ellipta) pravastatin 80 mg tablet 80 mg PO BEDTIME 07/30/23 07/30/23 07/29/23 History Physical Exam 2 Vital Signs and Narrative: Vital Signs: Last Vital Signs Temp 97.5 F 07/30/23 14:15 Pulse 76 07/30/23 15:24 Resp 20 07/30/23 14:15 BP 131/81 07/30/23 14:15 Pulse Ox 98 07/30/23 12:40 O2 Del Method Nasal Cannula 07/30/23 12:40 O2 Flow Rate 2 07/30/23 12:40 Oxygen Flow Rate 2 07/30/23 10:41 BMI result Body Mass Index 31.9 Const: General: cooperative, comfortable, no acute distress, alert and awake Nutritional Appearance: average body habitus Orientation/consciousness: p atient oriented x3 Resp: Other: diminished, no rales, wheezes or rhonchi Effort & Inspection: normal respiratory effort, able to speak in complete sentences, no respiratory distress and no use of accessory muscles A uscultation: clear to auscultation bilaterally Cardio: Rate: regular rate GI: Inspection: No distended Palpation (GI): Soft to palpation and nontender Neuro: General: patient oriented x3, moves all extremities and CN's II-XI intact bilaterally Extrem: Other: b/l lower extremity venous stasis changes, nonpitting edema Results Labs 07/30/23 12:33 07/30/23 12:33 Labs: Laboratory Results - last 24 hr 07/30/23 07/30/23 12:33 12:47 MCV 98.3 H MCH 28.5 MCHC 29.0 L RDW 19.8 H Plt Count 260 MPV 10.4 Immature Gran % (Auto) 0.3 Neut % (Auto) 71.4 Lymph % (Auto) 14.5 L [place] % (Auto) 10.9 Eos % (Auto) 2.6 Baso % (Auto) 0.3 Lymph # (Auto) 0.9 L [place] # (Auto) 0.7 Eos # (Auto) 0.2 Baso # (Auto) 0.0 Abs Immat Gran (auto) 0.02 Absolute Neuts (auto) 4.3 Absolute Nucleated RBC 0.000 Nucleated RBC % (auto) 0.0 PT 59.4 H INR 4.9 H Anion Gap 14 Estim Creat Clear Calc 41.9 Estimated GFR 39 Random Glucose 105 Calcium 8.9 Total Bilirubin 0.4 AST 21 ALT 9 Alkaline Phosphatase 45 Troponin I High Sens 8.5 B-Natriuretic Peptide 129 H Total Protein 6.9 Albumin 3.7 Stool Occult Blood POSITIVE Blood Type O Positive Antibody Screen NEGATIVE Crossmatch See Detail Imaging Radiologist's Impressions: Impressions Chest X-Ray 07/30/23 11:40 IMPRESSION: Stable examination. No acute abnormality. Assessment and Plan (1) Acute on chronic anemia: Status: Acute Plan 72-year-old male with history of heart failure with preserved ejection fraction, pulmonary hypertension, hypertension, CKD stage 3, COPD with chronic hypoxemic respiratory failure on 2 L supplemental O2 at baseline, [id number]-[id number] type 2 diabetes, chronic atrial fibrillation anticoagulated with Coumadin and on digoxin, hyperlipidemia, venous insufficiency, and chronic anemia send in with abnormal labs from routine lab draw acute on chronic macrocytic anemia, symptomatic history of anemia, seems multifactorial due to anemia of chronic dz with underlying CKD, also on iron and B12 supplementation follow outpatient with hematology - has had bone marrow exam, but unclear results heme + stools but not overt bleeding egd/colonoscopy in past reportedly negative but several years ago check iron studies, b12, folate transfusion initiated in ED follow H/H GI consult pending HFpEF limited echo 05/23 - dilated right ventricle, mod elevated right ventricular pressures, moderate pulmonary hypertension BNP near baseline, does have some leg edema; was started on metolazone by cardiology to begin today due to leg swelling no overt pulmonary edema one dose lasix IV ordered in ED low sodium diet continue home meds including torsemide and metolozone CKD stage 3 SCr 1.73. baseline appears 1.4-1.7 follow renal function daily chronic atrial fibrillation- rate controlled INR supratherapeutic at 4.9 Hold Coumadin monitor INR daily continue digoxin COPD/chronic respiratory failure on 2L oxygen at baseline, currently saturating in the mid 90s on baseline oxygen no acute exacerbation continue baseline inhalers xhu-rswmbyo-ywrtjuliu type 2 diabetes-without hyperglycemia SSI, POCs, ADA diet -hold metformin HLD continue statin dvt ppx - coumadin on hold - supratherapeutic INR attending - dr. abrams Will likely require a 2 midnight stay in the hospital for management of acute on chronic symptomatic anemia, need for blood transfusion, specialist evaluation and close monitoring of respiratory status given underlying CHF more receiving blood transfusion Quality Stroke Does the patient have a stroke diagnosis?: No VTE Prior VTE?: No VTE Risk Level:: Medical - moderate - high VTE Device Contraindication: N/A - Device Ordered VTE Drug Contraindication: Treatment Not Indicated
--- NOTE | 2023-07-30 16:20 | PC.NURSE ---
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
[2023-07-30 16:23] LABS: Iron 284 mcg/dL (45-160); Percent Iron Saturation 78 % (15-50); Total Iron Binding Capacity 364 mcg/dL (228-428); Unsaturated Iron Binding 80 ug/dL
[2023-07-30 16:37] LABS: Ferritin 37 ng/mL (20-250)
[2023-07-30 16:45] LABS: Glucose, Whole Blood 100 mg/dL (60-115)
--- NOTE | 2023-07-30 17:49 | PC.NURSE ---
RBC per note on the blood that came from blood bank, this patient had been identified as risk of developing TACO, pt is getting blood transfused over 4 hrs. so timing in the TAR will be off in comparison.
[2023-07-30] MEDS: Furosemide 20 MG/2 ML VIAL IVPUSH (18:01)
--- NOTE | 2023-07-30 18:01 | PC.NURSE ---
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 Thrasher Lasix 20 mg has been administered once the infusion was completed. call finnegan within reach, family at bedside, pt tolerated transfusion well. will continue to monitor
--- NOTE | 2023-07-30 20:01 | PC.NURSE ---
Spoke with pt to give update that pt is going upstairs. stated she may come to visit in the morning.
[2023-07-30 21:01] LABS: Glucose, Whole Blood 172 mg/dL (60-115)
[2023-07-30] MEDS: Insulin Lispro 100 UNIT/ML 3 ML VIAL SUBCUT (21:13)
[2023-07-30] MEDS: Digoxin 0.125 MG TABLET PO (21:14)
[2023-07-30] MEDS: Pravastatin Sodium 80 MG TABLET PO (22:13)
[2023-07-31] VITALS (9 sets, daily range): BP systolic 102–122; BP diastolic 53–66; PULSE 77–97; RESP 16–20; TEMP 36.3–37.3; O2SAT 91–98
[2023-07-31] MEDS: 0.9 % Sodium Chloride Flush 3 ML SYRINGE IVFLUSH ×4 (01:09→20:47)
[2023-07-31 06:45] LABS: MANUAL DIFF FLAG NO
[2023-07-31 06:56] LABS: INTERNATIONAL NORM RATIO 4.4 (0.9-1.1); Prothrombin Time 53.1 SEC (11.1-13.3)
[2023-07-31 06:57] LABS: Basophils Percent Auto 0.3 % (0-2); Eosinophils Absolute Auto 0.2 X10*3/uL (0.0-0.4); Imm Gran Abs Auto 0.03 X10*3/uL (0.00-0.03); Imm Gran Pct Auto 0.5 % (0.0-0.4); Mean Corpuscular HGB Conc 29.2 g/dl (31.0-36.0); Mean Corpuscular Hemoglobin 28.5 pg (27.0-33.0); Mean Corpuscular Volume 97.6 fL (80.0-98.0); Mean Platelet Volume 10.3 fL (9.4-12.4); Monocytes Absolute Auto 0.7 X10*3/uL (0.1-1.2); Monocytes Percent Auto 12.3 % (2-11); Neutrophils Percent Auto 65.9 % (45-73); Platelet Count 248 X10*3/uL (160-400); Red Blood Count 2.46 X10*6/uL (4.60-5.80); Red Cell Distribution Width 19.8 % (11.0-16.0)
[2023-07-31 07:03] LABS: Anion Gap 16 (12-20); Blood Urea Nitrogen 19 mg/dL (9-16); Calcium 8.4 mg/dL (8.4-10.2); Carbon Dioxide 39 mmol/L (22-29); Chloride 93 mmol/L (96-108); Creatinine Clr Calc Pharmacy 39.3; Estimated Glomerular Filt Rate 36; Glucose Random 116 mg/dL (60-115); Potassium 3.5 mmol/L (3.3-5.1); Sodium 144 mmol/L (135-145)
[2023-07-31 07:43] LABS: Folate 8.6 ng/mL (> or = 4.0); Vitamin B12 > 2000 pg/mL (200-900)
[2023-07-31 07:55] LABS: Immature Retic Fraction 23.5 % (2.3-13.4); Retic HGB Equivalent 23.5 pg (30.0-35.0); Reticulocyte Percent 3.4 % (0.5-1.8); Reticulocytes Absolute 0.082 X10*6/uL (0.026-0.095)
[2023-07-31 08:08] LABS: Glucose, Whole Blood 127 mg/dL (60-115)
[2023-07-31] MEDS: Fluticasone/Vilanterol 100/25 BLST.W.DEV 1 PUFF INHALE (08:22)
[2023-07-31] MEDS: Tiotropium Bromide 2.5 mcg 1 PUFF/2.5 MCG MIST.INHAL 2 PUFF INHALE (08:22)
[2023-07-31 08:27] LABS: Lactate Dehydrogenase 185 U/L (118-273)
[2023-07-31 09:10] LABS: B Type Natriuretic Peptide 114 pg/mL (<100)
[2023-07-31] MEDS: Ferrous Sulfate 324 MG TABLET.DR PO (09:43)
[2023-07-31] MEDS: Ascorbic Acid 500 MG TABLET PO (09:43)
[2023-07-31] MEDS: Ezetimibe 10 MG TABLET PO (09:43)
[2023-07-31] MEDS: Cyanocobalamin (Vitamin B-12) 1,000 MCG TABLET 1000 MCG PO (09:43)
[2023-07-31 11:25] LABS: Glucose, Whole Blood 169 mg/dL (60-115)
[2023-07-31] MEDS: Insulin Lispro 100 UNIT/ML 3 ML VIAL SUBCUT ×2 (11:43→16:42)
--- NOTE | 2023-07-31 12:57 | HO.PM.IMPN ---
Subjective Subjective Date of Service: 07/31/23 Interval History: seen and examined this morning Follow-up for anemia No shortness of breath overnight, no bleeding Review of Systems Review of Systems: Yes all other systems are reviewed and are negative Constitutional Constitutional: Denies chills and Denies fever(s) ENT Ears, Nose, Mouth, and Throat: Denies dizziness Cardiovascular Cardiovascular: Denies chest pain, Denies palpitations and Denies dyspnea Respiratory Respiratory: Denies cough and Denies dyspnea Gastrointestinal Gastrointestinal: Denies abdominal pain Neurologic Neurologic: Denies dizziness Endocrine Endocrine: Denies palpitations Physical Exam Vital Signs: Vital Signs: Last Vital Signs Temp 98.5 F 07/31/23 11:42 Pulse 93 07/31/23 11:42 Resp 18 07/31/23 11:42 BP 122/58 L 07/31/23 11:42 Pulse Ox 91 L 07/31/23 11:05 O2 Del Method Nasal Cannula 07/31/23 11:05 O2 Flow Rate 2 07/31/23 11:05 Oxygen Flow Rate 2 07/30/23 10:41 BMI result Body Mass Index 31.4 Const: General: cooperative, comfortable, no acute distress, alert and awake Nutritional Appearance: average body habitus Orientation/consciousness: patient oriented x3 Resp: Other: diminished, no rales, wheezes or rhonchi Effort & Inspection: normal respiratory effort, able to speak in complete sentences, no respiratory distress and no use of accessory muscles Auscultation: clear to auscultation bilaterally Cardio: Rate: regular rate GI: Inspection: No distended Palpation (GI): Soft to palpation and nontender Neuro: General: patient oriented x3, moves all extremities and CN's II-XI intact bilaterally Extrem: Other: b/l lower extremity venous stasis changes, nonpitting edema Objective Data Active Medications Acetaminophen (Acetaminophen 325 Mg Tablet) 650 mg PO Q6H PRN PRN Reason: Pain, Mild (Pain Scale 1-3) Albuterol Sulfate (Albuterol Sulfate 90 Mcg 8 Gm Inhaler) 1 puff INHALE QID PRN PRN Reason: shortness of breath or wheezing Ascorbic Acid (Ascorbic Acid 500 Mg Tablet) 500 mg PO DAILY [facility] Last Admin: 07/31/23 09:43 Dose: 500 mg Documented By: COLIN Cyanocobalamin (Cyanocobalamin (Vitamin B-12) 1,000 Mcg Tablet) 1,000 mcg PO DAILY [facility] Last Admin: 07/31/23 09:43 Dose: 1,000 mcg Documented By: COLIN Dextrose (Dextrose 50 % 25 Gm/50 Ml Syringe) 25 gm IVPUSH Q15M PRN; Protocol PRN Reason: per Hypoglycemia Standing Ord. Digoxin (Digoxin 0.125 Mg Tablet) 0.125 mg PO SUTUTHSA@2100 [facility] Last Admin: 07/30/23 21:14 Dose: 0.125 mg Documented By: GILLIAN Docusate Sodium (Docusate Sodium 100 Mg Capsule) 100 mg PO DAILY PRN PRN Reason: Constipation Ezetimibe (Ezetimibe 10 Mg Tablet) 10 mg PO DAILY [facility] Last Admin: 07/31/23 09:43 Dose: 10 mg Documented By: COLIN Ferrous Sulfate (Ferrous Sulfate 324 Mg Tablet.Dr) 324 mg PO DAILY [facility] Last Admin: 07/31/23 09:43 Dose: 324 mg Documented By: COLIN Fluticasone/Vilanterol (Fluticasone/Vilanterol 100/25 Blst.W.Dev) 1 puff INHALE RDAILY [facility] Last Admin: 07/31/23 08:22 Dose: 1 puff Documented By: ASTER Furosemide (Furosemide 20 Mg/2 Ml Vial) 20 mg IVPUSH ONCE [facility]; Protocol Last Admin: 07/30/23 18:01 Dose: 20 mg Documented By: ABE Glucose (Glucose Gel 15 Gm Gel..Gram.) 15 gm PO Q15M PRN; Protocol PRN Reason: per Hypoglycemia Standing Ord. Insulin Human Lispro (Insulin Lispro 100 Unit/Ml 3 Ml Vial) 0 unit SUBCUT QIDACHS [facility]; Protocol Last Admin: 07/31/23 11:43 Dose: 2 unit Documented By: COLIN Metolazone (Metolazone 2.5 Mg Tablet) 2.5 mg PO DAILY [facility] Ondansetron HCl (Ondansetron Hcl 4 Mg/2 Ml Vial) 4 mg IVPUSH Q8H PRN PRN Reason: Nausea and Vomiting Pravastatin Sodium (Pravastatin Sodium 80 Mg Tablet) 80 mg PO BEDTIME [facility] Last Admin: 07/30/23 22:13 Dose: 80 mg Documented By: HO.CHOIP Sodium Chloride (0.9 % Sodium Chloride Flush 3 Ml Syringe) 3 ml IVFLUSH QSHIFT [facility] Last Admin: 07/31/23 09:44 Dose: 3 ml Documented By: COLIN Tiotropium [place] (Tiotropium [place] 2.5 Mcg 1 Puff/2.5 Mcg Mist.Inhal) 2 puff INHALE RDAILY [facility] Last Admin: 07/31/23 08:22 Dose: 2 puff Documented By: ASTER Torsemide (Torsemide 20 Mg Tablet) 40 mg PO BID [facility]; Protocol Labs 07/31/23 06:18 07/31/23 06:18 Labs: Laboratory Results - last 24 hr 07/30/23 07/30/23 07/30/23 12:33 16:42 20:56 MCV 98.3 H MCH 28.5 MCHC 29.0 L RDW 19.8 H Plt Count 260 MPV 10.4 Immature Gran % (Auto) 0.3 Neut % (Auto) 71.4 Lymph % (Auto) 14.5 L Miller % (Auto) 10.9 Eos % (Auto) 2.6 Baso % (Auto) 0.3 Lymph # (Auto) 0.9 L Miller # (Auto) 0.7 Eos # (Auto) 0.2 Baso # (Auto) 0.0 Abs Immat Gran (auto) 0.02 Absolute Neuts (auto) 4.3 Absolute Nucleated RBC 0.000 Nucleated RBC % (auto) 0.0 Absolute Retic Percent Retic Immature Retic Fraction Retic Hgb Equivalent PT 59.4 H INR 4.9 H Anion Gap 14 Estim Creat Clear Calc 41.9 Estimated GFR 39 POC Glucose 100 172 H Random Glucose 105 Calcium 8.9 Iron 284 H TIBC 364 % Saturation 78 H Unsat Iron Binding 80 Ferritin 37 Total Bilirubin 0.4 AST 21 ALT 9 Alkaline Phosphatase 45 Lactate Dehydrogenase Troponin I High Sens 8.5 B-Natriuretic Peptide 129 H Total Protein 6.9 Albumin 3.7 Vitamin B12 Folate Blood Type O Positive Antibody Screen NEGATIVE Crossmatch See Detail 07/31/23 07/31/23 07/31/23 06:18 07:53 11:08 MCV 97.6 MCH 28.5 MCHC 29.2 L RDW 19.8 H Plt Count 248 MPV 10.3 Immature Gran % (Auto) 0.5 H Neut % (Auto) 65.9 Lymph % (Auto) 17.0 L Miller % (Auto) 12.3 H Eos % (Auto) 4.0 Baso % (Auto) 0.3 Lymph # (Auto) 1.0 L Miller # (Auto) 0.7 Eos # (Auto) 0.2 Baso # (Auto) 0.0 Abs Immat Gran (auto) 0.03 Absolute Neuts (auto) 4.0 Absolute Nucleated RBC 0.000 Nucleated RBC % (auto) 0.0 Absolute Retic 0.082 Percent Retic 3.4 H Immature Retic Fraction 23.5 H Retic Hgb Equivalent 23.5 L PT 53.1 H INR 4.4 H Anion Gap 16 Estim Creat Clear Calc 39.3 Estimated GFR 36 POC Glucose 127 H 169 H Random Glucose 116 H Calcium 8.4 Iron TIBC % Saturation Unsat Iron Binding Ferritin Total Bilirubin AST ALT Alkaline Phosphatase Lactate Dehydrogenase 185 Troponin I High Sens B-Natriuretic Peptide 114 H Total Protein Albumin Vitamin B12 > 2000 H Folate 8.6 Blood Type Antibody Screen Crossmatch Assessment and Plan (1) Acute on chronic anemia: Status: Acute (2) Guaiac positive stools: Status: Acute Plan 72-year-old male with history of heart failure with preserved ejection fraction, pulmonary hypertension, hypertension, CKD stage 3, COPD with chronic hypoxemic respiratory failure on 2 L supplemental O2 at baseline, [id number] type 2 diabetes, chronic atrial fibrillation anticoagulated with Coumadin and on digoxin, hyperlipidemia, venous insufficiency, and chronic anemia send in with abnormal labs from routine lab draw acute on chronic macrocytic anemia, symptomatic history of anemia, seems multifactorial due to anemia of chronic dz with underlying CKD, also on iron and B12 supplementation follow outpatient with hematology - has had bone marrow exam, but unclear results heme + stools but not overt bleeding egd/colonoscopy in past reportedly negative but several years ago iron, b12, folate wnl; will check for hemolysis although less likely give normal bili H/H remains low after transfusion, plan for another unit of RBCs today follow H/H GI consult pending HFpEF limited echo 05/23 - dilated right ventricle, mod elevated right ventricular pressures, moderate pulmonary hypertension BNP near baseline, does have some leg edema; overall does not appear fluid overloaded. no respiratory symptoms no overt pulmonary edema low sodium diet bicarb elevated, renal function trending up, will hold home torsemide and metolozone will give dose of lasix after blood re-eval need for diuretics in a.m. follow renal function closely CKD stage 3 SCr trending up slightly baseline appears 1.4-1.7 follow renal function daily chronic atrial fibrillation- rate controlled INR supratherapeutic at 4.4 Hold Coumadin monitor INR daily continue digoxin COPD/chronic respiratory failure on 2L oxygen at baseline, currently saturating in the mid 90s on baseline oxygen no acute exacerbation continue baseline inhalers [id number] type 2 diabetes-without hyperglycemia SSI, POCs, ADA diet hold metformin HLD continue statin dvt ppx - coumadin on hold - supratherapeutic INR attending - dr. abrams Requires ongoing inpatient stay for management of acute on chronic symptomatic anemia, need for blood transfusion, specialist evaluation and close monitoring of respiratory status given underlying CHF more receiving blood transfusion Quality Stroke Does the patient have a stroke diagnosis?: No VTE Prior VTE?: No VTE Risk Level:: Medical - moderate - high VTE Device Contraindication: N/A - Device Ordered VTE Drug Contraindication: Treatment Not Indicated
--- NOTE | 2023-07-31 14:14 | MHC.CM.PN ---
Addendum entered by Kendal Hooks 07/31/23 14:47: Per [facility], pt is not active with their services, but they are willing to follow for his D/C. Original Note: IMM 07/30. Pt lives at home with his , uses home O2 from [facility] and is active with [facility]. Pts will transport him home at D/C. HCP completed with pt, now on file. PCP: Dr. Grayson Berrios
[2023-07-31] MEDS: Furosemide 40 MG/4 ML VIAL IVPUSH (15:22)
--- NOTE | 2023-07-31 15:54 | PM.GICN ---
History of Present Illness Data of Consult Service Date: 07/31/23 Requesting physician: Leandra Tuttle Primary Care Provider: Grayson Berrios DO, MD HPI Reason for consult: anemia, heme positive stools 73 YM with CHF with preserved ejection fraction, pulmonary hypertension, hypertension, CKD stage 3, COPD with chronic hypoxemic respiratory failure on 2 L supplemental O2 at baseline, [id number] type 2 diabetes, chronic atrial fibrillation anticoagulated with Coumadin and on digoxin, hyperlipidemia, venous insufficiency, and chronic anemia sent to [facility] ED on 07/30/23 by his PCP due to abnormal labs. Pt was seen by his PCP's on 07/29/23 and had outpatient routine labs drawn. He was called this morning and requested to come to the emergency department due to anemia. Patient reports increasing dyspnea on exertion from his baseline. He denies any hematuria, blood in his stool. NSAIDs or ETOH abuse. Pt reports a hx of chronic anemia and has been taking PO iron and vitamin C for the past several years. Patient denies symptoms of heartburn, dysphagia, nausea, vomiting, change in appetite. Hx of weight gain due to edema (pt reports his wt was 209 lbs at home). Pt denies past hx of GIB or PUD. Pt reports black stools (due to oral iron) and denies recent change in bowel habits, constipation, diarrhea, rectal bleeding. Patient has AF, CHF and COPD (On home O2 at 2 L/m by [place] since August,). Pt has been on warfarin for AF and CHF. Per pt's pt was tested for sleep apnea and study was negative Pt reports having a BM bx in Jun, 2023 at [facility] which was negative per patient. Patient denies known family history of colon polyps, colon cancer or other GI malignancies. PAST EGD/COLONOSCOPY: Patient reports having an upper endoscopy and a colonoscopy at [facility] greater than 5 years ago - records were requested. In the emergency department his INR was noted to be elevated at 4.9, was noted to have heme-positive stools. He reports a history of anemia and does follow with a electronic console display operator in [place], he has had a bone marrow examination recently but he is unsure what the results were. Review of Systems Review of Systems: Yes all other systems are reviewed and are negative Constitutional: Constitutional: Denies chills and Denies fever(s) Cardiovascular: Cardiovascular: Denies chest pain, Denies palpitations and Reports dyspnea on exertion Respiratory: Respiratory: Reports dyspnea on exertion Gastrointestinal: Gastrointestinal: Denies abdominal pain, Denies nausea and Denies vomiting Endocrine: Endocrine: Denies palpitations [facility] Past Medical History Medical History Macrocytic anemia Partial small bowel obstruction Anemia CHF (congestive heart failure) Diabetes mellitus CKD (chronic kidney disease) HTN (hypertension) Biatrial enlargement Pulmonary hypertension Chronic heart failure with preserved ejection fraction (HFpEF) HLD (hyperlipidemia) Chronic a-fib Current use of anticoagulant therapy Family History Family History Father Cancer Mother No problems noted. Surgical History Surgical History Hx of total hip arthroplasty Hx of colonoscopy Hx of esophagogastroduodenoscopy History of nephrectomy Hx of hernia repair Social History Social History Household Members: Spouse Housing: House Do you presently have visiting nurse or other home services: No Comment: refused bed alarm Patient Tobacco Use Status: Former Tobacco user Quit Date: 13 yrs ago Second Hand Smoke Exposure: No Advance Directives Date on File: 06/01/00 service: No Meds Allergies Allergy/AdvReac Type Severity Reaction Status Date / Time No Known Allergies Allergy Verified 07/24/23 11:12 Active Medications: Current Medications Acetaminophen (Acetaminophen 325 Mg Tablet) 650 mg PO Q6H PRN PRN Reason: Pain, Mild (Pain Scale 1-3) Albuterol Sulfate (Albuterol Sulfate 90 Mcg 8 Gm Inhaler) 1 puff INHALE QID PRN PRN Reason: shortness of breath or wheezing Ascorbic Acid (Ascorbic Acid 500 Mg Tablet) 500 mg PO DAILY [facility] Last Admin: 07/31/23 09:43 Dose: 500 mg Cyanocobalamin (Cyanocobalamin (Vitamin B-12) 1,000 Mcg Tablet) 1,000 mcg PO DAILY [facility] Last Admin: 07/31/23 09:43 Dose: 1,000 mcg Dextrose (Dextrose 50 % 25 Gm/50 Ml Syringe) 25 gm IVPUSH Q15M PRN; Protocol PRN Reason: per Hypoglycemia Standing Ord. Digoxin (Digoxin 0.125 Mg Tablet) 0.125 mg PO SUTUTHSA@2100 [facility] Last Admin: 07/30/23 21:14 Dose: 0.125 mg Docusate Sodium (Docusate Sodium 100 Mg Capsule) 100 mg PO DAILY PRN PRN Reason: Constipation Ezetimibe (Ezetimibe 10 Mg Tablet) 10 mg PO DAILY [facility] Last Admin: 07/31/23 09:43 Dose: 10 mg Ferrous Sulfate (Ferrous Sulfate 324 Mg Tablet.Dr) 324 mg PO DAILY [facility] Last Admin: 07/31/23 09:43 Dose: 324 mg Fluticasone/Vilanterol (Fluticasone/Vilanterol 100/25 Blst.W.Dev) [facility] Last Admin: 07/31/23 08:22 Dose: 1 puff Furosemide (Furosemide 20 Mg/2 Ml Vial) 20 mg IVPUSH ONCE [facility]; Protocol Last Admin: 07/30/23 18:01 Dose: 20 mg Glucose (Glucose Gel 15 Gm Gel..Gram.) 15 gm PO Q15M PRN; Protocol PRN Reason: per Hypoglycemia Standing Ord. Insulin Human Lispro (Insulin Lispro 100 Unit/Ml 3 Ml Vial) 0 unit SUBCUT QIDACHS [facility]; Protocol Last Admin: 07/31/23 11:43 Dose: 2 unit Metolazone (Metolazone 2.5 Mg Tablet) 2.5 mg PO DAILY [facility] Ondansetron HCl (Ondansetron Hcl 4 Mg/2 Ml Vial) 4 mg IVPUSH Q8H PRN PRN Reason: Nausea and Vomiting Pravastatin Sodium (Pravastatin Sodium 80 Mg Tablet) 80 mg PO BEDTIME [facility] Last Admin: 07/30/23 22:13 Dose: 80 mg Sodium Chloride (0.9 % Sodium Chloride Flush 3 Ml Syringe) 3 ml IVFLUSH QSHIFT [facility] Last Admin: 07/31/23 15:22 Dose: 3 ml Tiotropium [place] (Tiotropium [place] 2.5 Mcg 1 Puff/2.5 Mcg Mist.Inhal) 2 puff INHALE RDAILY [facility] Last Admin: 07/31/23 08:22 Dose: 2 puff Torsemide (Torsemide 20 Mg Tablet) 40 mg PO BID [facility]; Protocol Home Medications Medication Instructions Recorded Confirmed Last Taken Type ascorbic acid (vitamin C) 500 mg 500 mg PO DAILY 05/01/20 07/30/23 07/30/23 History tablet ezetimibe 10 mg tablet 10 mg PO DAILY 05/01/20 07/30/23 07/30/23 History ferrous sulfate 325 mg (65 mg 325 mg PO DAILY 05/01/20 07/30/23 07/30/23 History iron) tablet metformin 500 mg tablet 500 mg PO BIDWM 05/01/20 07/30/23 07/30/23 History tiotropium bromide 18 mcg capsule 18 mcg PO DAILY 05/01/20 07/30/23 07/30/23 History with inhalation device albuterol sulfate 90 mcg/actuation 1 inh inhalation QID PRN shortness 11/10/22 07/30/23 07/30/23 History aerosol inhaler of breath or wheezing cyanocobalamin (vitamin B-12) 1,000 mcg PO DAILY 12/15/22 07/30/23 07/30/23 History 1,000 mcg tablet warfarin 2.5 mg tablet 2.5 mg PO MO 04/03/23 07/30/23 07/30/23 History warfarin 5 mg tablet 5 mg PO SUTUWETHFRSA 05/22/23 07/30/23 07/30/23 History digoxin 125 mcg (0.125 mg) tablet 125 mcg PO SUTUTHSA@2100 07/30/23 07/30/23 07/29/23 History fluticasone furoate 100 1 inh inhalation DAILY 07/30/23 07/30/23 07/30/23 History mcg-vilanterol 25 mcg/dose inhalation powder (Breo Ellipta) pravastatin 80 mg tablet 80 mg PO BEDTIME 07/30/23 07/30/23 07/29/23 History Physical Exam Vital Signs: Vital Signs: Last Vital Signs Temp 97.4 F 07/31/23 15:34 Pulse 97 07/31/23 15:34 Resp 19 07/31/23 15:34 BP 104/66 07/31/23 15:34 Pulse Ox 98 07/31/23 15:34 O2 Del Method Room Air 07/31/23 15:34 O2 Flow Rate 2 07/31/23 15:23 Oxygen Flow Rate 2 07/30/23 10:41 BMI result Body Mass Index 31.4 Appearing in no acute distress lung sounds are clear to auscultation heart regular rate rhythm, clear S1, S2 positive bowel sounds, abdomen is soft, nontender neuro patient is alert x3, no focal deficits Results Labs 08/04/23 07:28 08/04/23 07:28 Labs: Short CBC 07/31/23 Range/Units 06:18 WBC 6.0 (4.8-10.8) X10*3/uL Hgb 7.0 L* (14.0-18.0) g/dl Hct 24.0 L (42.0-52.0) % Plt Count 248 (160-400) X10*3/uL BMP 07/31/23 06:18 Sodium 144 Potassium 3.5 Chloride 93 L Carbon Dioxide 39 H BUN 19 H Creatinine 1.83 H Calcium 8.4 Assessment and Plan (1) Acute on chronic anemia: Status: Acute Plan 73 YM with chronic atrial fibrillation on anticoagulation, essential hypertension, congestive heart failure with preserved ejection fraction, venous stasis, mixed hyperlipidemia, [id number]-[id number] diabetes mellitus, chronic hypoxemic respiratory failure due to COPD admitted to [facility] on 07/30/23 due to acute on chronic anemia.? Patient reports increasing dyspnea on exertion from his baseline and denies any hematuria, blood in his stool. NSAIDs or ETOH abuse. Pt reports a hx of chronic anemia and has been taking PO iron and vitamin C for the past several years. Anemia is likely multifactorial - a combination of DELMA and anemia of chronic disease. RECOMMENDATIONS: 1. Monitor CBC daily and continue Omeprazole daily 2. Further evaluation with EGD and Colonoscopy scheduled on 08/03/23. 3. Clear liquid diet and GoLYTELY prep on 08/02/23 4. Pt will need cardiac clearance for the procedures Procedures Date of Service Date of Service: 08/06/23
[2023-07-31 16:35] LABS: Glucose, Whole Blood 163 mg/dL (60-115)
[2023-07-31 20:24] LABS: Glucose, Whole Blood 141 mg/dL (60-115)
[2023-07-31] MEDS: Pravastatin Sodium 80 MG TABLET PO (20:47)
[2023-08-01] VITALS (11 sets, daily range): BP systolic 105–124; BP diastolic 50–65; PULSE 69–101; RESP 16–20; TEMP 36.4–37.2; O2SAT 94–99
[2023-08-01 01:55] LABS: Haptoglobin 181 MG/DL ((30-200))
[2023-08-01 06:38] LABS: INTERNATIONAL NORM RATIO 2.5 (0.9-1.1)
[2023-08-01] MEDS: Tiotropium Bromide 2.5 mcg 1 PUFF/2.5 MCG MIST.INHAL 2 PUFF INHALE (07:51)
[2023-08-01] MEDS: Fluticasone/Vilanterol 100/25 BLST.W.DEV 1 PUFF INHALE (07:51)
[2023-08-01 09:10] LABS: Glucose, Whole Blood 202 mg/dL (60-115)
[2023-08-01] MEDS: 0.9 % Sodium Chloride Flush 3 ML SYRINGE IVFLUSH ×2 (09:14→20:20)
[2023-08-01] MEDS: Ferrous Sulfate 324 MG TABLET.DR PO (09:14)
[2023-08-01] MEDS: Ezetimibe 10 MG TABLET PO (09:14)
[2023-08-01] MEDS: Cyanocobalamin (Vitamin B-12) 1,000 MCG TABLET 1000 MCG PO (09:14)
[2023-08-01] MEDS: Ascorbic Acid 500 MG TABLET PO (09:14)
[2023-08-01] MEDS: Insulin Lispro 100 UNIT/ML 3 ML VIAL SUBCUT ×3 (09:14→20:21)
--- NOTE | 2023-08-01 10:34 | HO.PM.IMPN ---
Subjective Subjective Date of Service: 08/01/23 Interval History: seen and examined this morning Follow-up for anemia No shortness of breath overnight, no bleeding Review of Systems Review of Systems: Yes all other systems are reviewed and are negative Constitutional Constitutional: Denies chills and Denies fever(s) ENT Ears, Nose, Mouth, and Throat: Denies dizziness Cardiovascular Cardiovascular: Denies chest pain, Denies palpitations and Denies dyspnea Respiratory Respiratory: Denies cough and Denies dyspnea Gastrointestinal Gastrointestinal: Denies abdominal pain Neurologic Neurologic: Denies dizziness Endocrine Endocrine: Denies palpitations Physical Exam Vital Signs: Vital Signs: Last Vital Signs Temp 98.1 F 08/01/23 10:17 Pulse 80 08/01/23 10:17 Resp 18 08/01/23 10:17 BP 114/50 L 08/01/23 10:17 Pulse Ox 96 08/01/23 08:00 O2 Del Method Nasal Cannula 08/01/23 08:00 O2 Flow Rate 2 08/01/23 08:00 Oxygen Flow Rate 2 07/30/23 10:41 BMI result Body Mass Index 31.4 Appearing in no acute distress lung sounds are clear to auscultation heart regular rate rhythm, clear S1, S2 positive bowel sounds, abdomen is soft, nontender neuro patient is alert x3, no focal deficits Objective Data Active Medications Acetaminophen (Acetaminophen 325 Mg Tablet) 650 mg PO Q6H PRN PRN Reason: Pain, Mild (Pain Scale 1-3) Albuterol Sulfate (Albuterol Sulfate 90 Mcg 8 Gm Inhaler) 1 puff INHALE QID PRN PRN Reason: shortness of breath or wheezing Ascorbic Acid (Ascorbic Acid 500 Mg Tablet) 500 mg PO DAILY [facility] Last Admin: 08/01/23 09:14 Dose: 500 mg Documented By: MOON Cyanocobalamin (Cyanocobalamin (Vitamin B-12) 1,000 Mcg Tablet) 1,000 mcg PO DAILY [facility] Last Admin: 08/01/23 09:14 Dose: 1,000 mcg Documented By: MOON Dextrose (Dextrose 50 % 25 Gm/50 Ml Syringe) 25 gm IVPUSH Q15M PRN; Protocol PRN Reason: per Hypoglycemia Standing Ord. Digoxin (Digoxin 0.125 Mg Tablet) 0.125 mg PO SUTUTHSA@2100 [facility] Last Admin: 07/30/23 21:14 Dose: 0.125 mg Documented By: GILLIAN Docusate Sodium (Docusate Sodium 100 Mg Capsule) 100 mg PO DAILY PRN PRN Reason: Constipation Ezetimibe (Ezetimibe 10 Mg Tablet) 10 mg PO DAILY [facility] Last Admin: 08/01/23 09:14 Dose: 10 mg Documented By: MOON Ferrous Sulfate (Ferrous Sulfate 324 Mg Tablet.Dr) 324 mg PO DAILY [facility] Last Admin: 08/01/23 09:14 Dose: 324 mg Documented By: MOON Fluticasone/Vilanterol (Fluticasone/Vilanterol 100/25 Blst.W.Dev) [facility] Last Admin: 08/01/23 07:51 Dose: 1 puff Documented By: MACIEJ Furosemide (Furosemide 20 Mg/2 Ml Vial) 20 mg IVPUSH ONCE [facility]; Protocol Last Admin: 07/30/23 18:01 Dose: 20 mg Documented By: ABE Glucose (Glucose Gel 15 Gm Gel..Gram.) 15 gm PO Q15M PRN; Protocol PRN Reason: per Hypoglycemia Standing Ord. Insulin Human Lispro (Insulin Lispro 100 Unit/Ml 3 Ml Vial) 0 unit SUBCUT QIDACHS [facility]; Protocol Last Admin: 08/01/23 09:14 Dose: 4 unit Documented By: MOON Metolazone (Metolazone 2.5 Mg Tablet) 2.5 mg PO DAILY [facility] Ondansetron HCl (Ondansetron Hcl 4 Mg/2 Ml Vial) 4 mg IVPUSH Q8H PRN PRN Reason: Nausea and Vomiting Pravastatin Sodium (Pravastatin Sodium 80 Mg Tablet) 80 mg PO BEDTIME [facility] Last Admin: 07/31/23 20:47 Dose: 80 mg Documented By: SUPA Sodium Chloride (0.9 % Sodium Chloride Flush 3 Ml Syringe) 3 ml IVFLUSH QSHIFT [facility] Last Admin: 08/01/23 09:14 Dose: 3 ml Documented By: MOON Tiotropium [place] (Tiotropium [place] 2.5 Mcg 1 Puff/2.5 Mcg Mist.Inhal) 2 puff INHALE RDAILY [facility] Last Admin: 08/01/23 07:51 Dose: 2 puff Documented By: MACIEJ Torsemide (Torsemide 20 Mg Tablet) 40 mg PO BID [facility]; Protocol Labs 07/31/23 06:18 07/31/23 06:18 Labs: Laboratory Results - last 24 hr 07/30/23 07/31/23 07/31/23 12:33 06:18 11:08 Haptoglobin 181 Hold Purple Top PT INR POC Glucose 169 H Blood Type O Positive Antibody Screen NEGATIVE Crossmatch See Detail 07/31/23 07/31/23 08/01/23 15:57 20:21 06:13 Haptoglobin Hold Purple Top SEE NOTE PT 30.0 H D INR 2.5 H POC Glucose 163 H 141 H Blood Type Antibody Screen Crossmatch 08/01/23 09:07 Haptoglobin Hold Purple Top PT INR POC Glucose 202 H Blood Type Antibody Screen Crossmatch Assessment and Plan (1) Acute on chronic anemia: Status: Acute (2) Guaiac positive stools: Status: Acute Plan 72-year-old male with history of heart failure with preserved ejection fraction, pulmonary hypertension, hypertension, CKD stage 3, COPD with chronic hypoxemic respiratory failure on 2 L supplemental O2 at baseline, [id number] type 2 diabetes, chronic atrial fibrillation anticoagulated with Coumadin and on digoxin, hyperlipidemia, venous insufficiency, and chronic anemia send in with abnormal labs from routine lab draw Acute on chronic macrocytic anemia, symptomatic history of anemia, seems multifactorial due to anemia of chronic dz with underlying CKD, also on iron and B12 supplementation follow outpatient with hematology - has had bone marrow exam, but unclear results heme + stools but not overt bleeding iron, b12, folate wnl s/p 3 units PRBC follow H/H GI consult>plan for EGD and colo, cardio consult for risk stratification plan for tx today, check HH post transfusion HFpEF limited echo 05/23 - dilated right ventricle, mod elevated right ventricular pressures, moderate pulmonary hypertension no overt pulmonary edema low sodium diet bicarb elevated, renal function trending up, will hold home torsemide and metolozone will give dose of lasix after blood re-eval need for diuretics in a.m. follow renal function closely CKD stage 3 SCr trending up slightly baseline follow renal function daily chronic atrial fibrillation- rate controlled INR supratherapeutic at 2.5 hold warfain due to anemia monitor INR daily continue digoxin COPD/chronic respiratory failure on 2L oxygen at baseline, currently saturating in the mid 90s on baseline oxygen no acute exacerbation continue baseline inhalers [id number] type 2 diabetes-without hyperglycemia SSI, POCs, ADA diet hold metformin HLD continue statin dvt ppx - coumadin on hold - supratherapeutic INR attending - dr. Espinal Requires ongoing inpatient stay for management of acute on chronic symptomatic anemia, need for blood transfusion, specialist evaluation and close monitoring of respiratory status given underlying CHF more receiving blood transfusion Quality Stroke Does the patient have a stroke diagnosis?: No VTE Prior VTE?: No VTE Risk Level:: Medical - moderate - high VTE Device Contraindication: N/A - Device Ordered VTE Drug Contraindication: Treatment Not Indicated
[2023-08-01 12:12] LABS: Glucose, Whole Blood 122 mg/dL (60-115)
[2023-08-01 15:31] LABS: Hematocrit 28.4 % (42.0-52.0); Hemoglobin 8.6 g/dl (14.0-18.0)
[2023-08-01 16:13] LABS: Glucose, Whole Blood 157 mg/dL (60-115)
[2023-08-01 20:11] LABS: Glucose, Whole Blood 165 mg/dL (60-115)
[2023-08-01] MEDS: Pravastatin Sodium 80 MG TABLET PO (20:20)
[2023-08-01] MEDS: Digoxin 0.125 MG TABLET PO (20:20)
[2023-08-02] VITALS (8 sets, daily range): BP systolic 108–126; BP diastolic 54–62; PULSE 65–96; RESP 18–20; TEMP 36.1–36.8; O2SAT 94–98
[2023-08-02 07:15] LABS: Hematocrit 28.8 % (42.0-52.0); Hemoglobin 8.6 g/dl (14.0-18.0); Mean Corpuscular HGB Conc 29.9 g/dl (31.0-36.0); Mean Corpuscular Hemoglobin 28.5 pg (27.0-33.0); Mean Corpuscular Volume 95.4 fL (80.0-98.0); Mean Platelet Volume 10.6 fL (9.4-12.4); Platelet Count 229 X10*3/uL (160-400); Red Blood Count 3.02 X10*6/uL (4.60-5.80); Red Cell Distribution Width 19.9 % (11.0-16.0); White Blood Count 6.9 X10*3/uL (4.8-10.8)
[2023-08-02] MEDS: Ferrous Sulfate 324 MG TABLET.DR PO (07:21)
[2023-08-02] MEDS: Ezetimibe 10 MG TABLET PO (07:21)
[2023-08-02] MEDS: Cyanocobalamin (Vitamin B-12) 1,000 MCG TABLET 1000 MCG PO (07:21)
[2023-08-02] MEDS: Ascorbic Acid 500 MG TABLET PO (07:21)
[2023-08-02] MEDS: 0.9 % Sodium Chloride Flush 3 ML SYRINGE IVFLUSH ×3 (07:22→20:56)
[2023-08-02 07:30] LABS: INTERNATIONAL NORM RATIO 1.6 (0.9-1.1); Prothrombin Time 19.6 SEC (11.1-13.3)
[2023-08-02 07:42] LABS: Anion Gap 12 (12-20); Blood Urea Nitrogen 24 mg/dL (9-16); Calcium 8.8 mg/dL (8.4-10.2); Carbon Dioxide 41 mmol/L (22-29); Chloride 92 mmol/L (96-108); Creatinine Clr Calc Pharmacy 48.6; Estimated Glomerular Filt Rate 46; Glucose Random 113 mg/dL (60-115); Potassium 3.4 mmol/L (3.3-5.1); Sodium 142 mmol/L (135-145)
[2023-08-02] MEDS: Fluticasone/Vilanterol 100/25 BLST.W.DEV 1 PUFF INHALE (07:44)
[2023-08-02] MEDS: Tiotropium Bromide 2.5 mcg 1 PUFF/2.5 MCG MIST.INHAL 2 PUFF INHALE (07:45)
[2023-08-02 07:57] LABS: Glucose, Whole Blood 114 mg/dL (60-115)
--- NOTE | 2023-08-02 09:34 | P.CONCA_ITS ---
History of Present Illness History of Present Illness Date of Service: 08/02/23 Chief complaint: Symptomatic Anemia Narrative: This is a cardiology consultation regarding preoperative stratification for EGD/colonoscopy scheduled for tomorrow. He has been seen by Gastroenterology for acute on chronic anemia. Upon admission, hemoglobin was 6.7. Prior to that, it was 8.6 in April. Currently, hemoglobin is 8.6. Last seen by Cardiology Clinic about 3 months ago. Saw our nurse practitioner. Many comorbidities including hypertension, dyslipidemia, diabetes, CKD, chronic atrial fibrillation, heart failure preserved ejection fraction. He states that he is chronically short of breath and he can only walk short distances before he feels he is tired and has stopped. He states that he has just been like this for a while. No angina. No other complaints from cardiac. He states nothing has changed recently. Review of Systems 2 Review of Systems: Yes all other systems are reviewed and are negative Constitutional: Constitutional: Reports as per HPI and Reports no additional constitutional complaints Eyes: Eyes: Reports as per HPI and Denies no additional eye complaints ENT: Denies system reviewed and no additional complaints, except as documented and Reports as per HPI Cardiovascular: Cardiovascular: Reports as per HPI, Reports no additional cardiovascular complaints, Denies acrocyanosis, Denies cool extremities, Denies chest pain, Denies leg edema, Denies lightheadedness, Denies palpitations and Reports dyspnea Respiratory: Respiratory: Reports as per HPI, Denies no additional respiratory complaints and Reports dyspnea Gastrointestinal: Gastrointestinal: Reports as per HPI and Denies no additional gastrointestinal complaints Genitourinary: Genitourinary: Reports no additional male genitourinary complaints and Reports as per HPI Musculoskeletal: Musculoskeletal: Reports no additional musculoskeletal complaints and Reports as per HPI Integumentary/Breasts: Skin/Breast: Reports system reviewed and no additional complaints, except as docu Neurologic: Reports system reviewed and no additional complaints, except as documented and Reports as per HPI Psychiatric: Psychiatric: Reports no additional psychiatric complaints and Reports as per HPI Endocrine: Endocrine: Reports no additional endocrine complaints, Reports as per HPI and Denies palpitations Hematologic/Lymphatic: Hematologic/Lymphatic: Reports no additional hematologic/lymphatic complaints and Reports as per HPI Allergic/Immunologic: Allergic/Immunologic: Reports no additional allergic/immunologic complaints and Reports as per HPI [facility] Past Medical History Medical History (Updated 08/02/23 @ 09:58 by Ashok Lee MD) Chronic heart failure with preserved ejection fraction (HFpEF) Macrocytic anemia CHF (congestive heart failure) Chronic a-fib Partial small bowel obstruction Anemia Diabetes mellitus CKD (chronic kidney disease) HTN (hypertension) Biatrial enlargement Pulmonary hypertension HLD (hyperlipidemia) Current use of anticoagulant therapy Family History Family History Father Cancer Mother No problems noted. Surgical History Surgical History History of nephrectomy Hx of hernia repair Social History Social History Household Members: Spouse Housing: House Do you presently have visiting nurse or other home services: No Patient Tobacco Use Status: Former Tobacco user Second Hand Smoke Exposure: No Advance Directives Date on File: 06/01/00 service: No Meds Allergies Allergy/AdvReac Type Severity Reaction Status Date / Time No Known Allergies Allergy Verified 07/24/23 11:12 Active Medications: Current Medications Acetaminophen (Acetaminophen 325 Mg Tablet) 650 mg PO Q6H PRN PRN Reason: Pain, Mild (Pain Scale 1-3) Albuterol Sulfate (Albuterol Sulfate 90 Mcg 8 Gm Inhaler) 1 puff INHALE QID PRN PRN Reason: shortness of breath or wheezing Ascorbic Acid (Ascorbic Acid 500 Mg Tablet) 500 mg PO DAILY [facility] Last Admin: 08/02/23 07:21 Dose: 500 mg Cyanocobalamin (Cyanocobalamin (Vitamin B-12) 1,000 Mcg Tablet) 1,000 mcg PO DAILY [facility] [place] Last Admin: 08/02/23 07:21 Dose: 1,000 mcg Dextrose (Dextrose 50 % 25 Gm/50 Ml Syringe) 25 gm IVPUSH Q15M PRN; Protocol PRN Reason: per Hypoglycemia Standing Ord. Digoxin (Digoxin 0.125 Mg Tablet) 0.125 mg PO SUTUTHSA@2100 [facility] [place] Last Admin: 08/01/23 20:20 Dose: 0.125 mg Docusate Sodium (Docusate Sodium 100 Mg Capsule) 100 mg PO DAILY PRN PRN Reason: Constipation Ezetimibe (Ezetimibe 10 Mg Tablet) 10 mg PO DAILY [facility] [place] Last Admin: 08/02/23 07:21 Dose: 10 mg Ferrous Sulfate (Ferrous Sulfate 324 Mg Tablet.Dr) 324 mg PO DAILY [facility] [place] Last Admin: 08/02/23 07:21 Dose: 324 mg Fluticasone/Vilanterol (Fluticasone/Vilanterol 100/25 Blst.W.Dev) 1 puff INHALE RDAILY [facility] [place] Last Admin: 08/02/23 07:44 Dose: 1 puff Furosemide (Furosemide 20 Mg/2 Ml Vial) 20 mg IVPUSH ONCE [facility]; Protocol Last Admin: 07/30/23 18:01 Dose: 20 mg Glucose (Glucose Gel 15 Gm Gel..Gram.) 15 gm PO Q15M PRN; Protocol PRN Reason: per Hypoglycemia Standing Ord. Insulin Human Lispro (Insulin Lispro 100 Unit/Ml 3 Ml Vial) 0 unit SUBCUT QIDACHS [facility] [place]; Protocol Last Admin: 08/02/23 07:23 Dose: Not Given Metolazone (Metolazone 2.5 Mg Tablet) 2.5 mg PO DAILY [facility] [place] Ondansetron HCl (Ondansetron Hcl 4 Mg/2 Ml Vial) 4 mg IVPUSH Q8H PRN PRN Reason: Nausea and Vomiting Pravastatin Sodium (Pravastatin Sodium 80 Mg Tablet) 80 mg PO BEDTIME [facility] [place] Last Admin: 08/01/23 20:20 Dose: 80 mg Sodium Chloride (0.9 % Sodium Chloride Flush 3 Ml Syringe) 3 ml IVFLUSH QSHIFT [facility] [place] Last Admin: 08/02/23 07:22 Dose: 3 ml Tiotropium [place] (Tiotropium [place] 2.5 Mcg 1 Puff/2.5 Mcg Mist.Inhal) 2 puff INHALE RDAILY [facility] [place] Last Admin: 08/02/23 07:45 Dose: 2 puff Torsemide (Torsemide 20 Mg Tablet) 40 mg PO BID [facility] [place]; Protocol Home Medications Medication Instructions Recorded Confirmed Last Taken Type ascorbic acid (vitamin C) 500 mg 500 mg PO DAILY 05/01/20 07/30/23 07/30/23 History tablet ezetimibe 10 mg tablet 10 mg PO DAILY 05/01/20 07/30/23 07/30/23 History ferrous sulfate 325 mg (65 mg 325 mg PO DAILY 05/01/20 07/30/23 07/30/23 History iron) tablet metformin 500 mg tablet 500 mg PO BIDWM 05/01/20 07/30/23 07/30/23 History tiotropium bromide 18 mcg capsule 18 mcg PO DAILY 05/01/20 07/30/23 07/30/23 History with inhalation device albuterol sulfate 90 mcg/actuation 1 inh inhalation QID PRN shortness 11/10/22 07/30/23 07/30/23 History aerosol inhaler of breath or wheezing cyanocobalamin (vitamin B-12) 1,000 mcg PO DAILY 12/15/22 07/30/23 07/30/23 History 1,000 mcg tablet warfarin 2.5 mg tablet 2.5 mg PO MO 04/03/23 07/30/23 07/30/23 History warfarin 5 mg tablet 5 mg PO SUTUWETHFRSA 05/22/23 07/30/23 07/30/23 History digoxin 125 mcg (0.125 mg) tablet 125 mcg PO SUTUTHSA@2100 07/30/23 07/30/23 07/29/23 History fluticasone furoate 100 1 inh inhalation DAILY 07/30/23 07/30/23 07/30/23 History mcg-vilanterol 25 mcg/dose inhalation powder (Breo Ellipta) pravastatin 80 mg tablet 80 mg PO BEDTIME 07/30/23 07/30/23 07/29/23 History Physical Exam 2 Vital Signs: Vital Signs: Last Vital Signs Temp 98.2 F 08/02/23 07:17 Pulse 65 08/02/23 07:45 Resp 20 08/02/23 07:45 BP 117/60 08/02/23 07:17 Pulse Ox 97 08/02/23 07:17 O2 Del Method Nasal Cannula 08/02/23 07:17 O2 Flow Rate 2 08/02/23 07:17 Oxygen Flow Rate 2 07/30/23 10:41 BMI result Body Mass Index 31.4 Const: General: comfortable and no acute distress O rientation/consciousness: patient oriented x3 HEENT: Other: Unremarkable Head: Yes normal to inspection Neck: Neck: Yes normal visual inspection Chest: Chest palpation & inspection: normal inspection of the chest Resp: Auscultation: clear to auscultation bilaterally Cardio: Jugular venous distension: JVD Palpation: normal PMI Heart sounds: S1 normal heart sound present, S2 normal heart sound present, no gallops, no murmurs and no rubs GI: Palpation (GI): Soft to palpation Back/Spine/Pelvis: Other: unremarkable Skin: General skin exam: no rashes or lesions noted Neuro: General: patient oriented x3 Extrem: General: Yes normal to inspection Psych: Mental Status: mental status grossly normal Objective Labs and Meds 08/02/23 06:33 08/02/23 06:33 Lab results: Laboratory Results - last 24 hr 07/30/23 08/01/23 08/01/23 12:33 12:08 15:15 WBC RBC Hgb 8.6 L D Hct 28.4 L MCV MCH MCHC RDW Plt Count MPV Absolute Nucleated RBC Nucleated RBC % (auto) PT INR Sodium Potassium Chloride Carbon Dioxide Anion Gap BUN Creatinine Estim Creat Clear Calc Estimated GFR POC Glucose 122 H Random Glucose Calcium Blood Type O Positive Antibody Screen NEGATIVE Crossmatch See Detail 08/01/23 08/01/23 08/02/23 16:08 20:05 06:33 WBC 6.9 RBC 3.02 L D Hgb 8.6 L Hct 28.8 L MCV 95.4 MCH 28.5 MCHC 29.9 L RDW 19.9 H Plt Count 229 MPV 10.6 Absolute Nucleated RBC 0.000 Nucleated RBC % (auto) 0.0 PT 19.6 H D INR 1.6 H Sodium 142 Potassium 3.4 Chloride 92 L Carbon Dioxide 41 H* Anion Gap 12 BUN 24 H Creatinine 1.48 H Estim Creat Clear Calc 48.6 Estimated GFR 46 POC Glucose 157 H 165 H Random Glucose 113 Calcium 8.8 Blood Type Antibody Screen Crossmatch 08/02/23 07:16 WBC RBC Hgb Hct MCV MCH MCHC RDW Plt Count MPV Absolute Nucleated RBC Nucleated RBC % (auto) PT INR Sodium Potassium Chloride Carbon Dioxide Anion Gap BUN Creatinine Estim Creat Clear Calc Estimated GFR POC Glucose 114 Random Glucose Calcium Blood Type Antibody Screen Crossmatch ECG Interpretation: EKG with atrial fibrillation at a rate of 63/Min; PVC versus aberrant conduction. Low-voltage QRS complexes. Nonspecific ST-T changes. Assessment and Plan (1) Preoperative cardiovascular examination: Status: Acute (2) Chronic heart failure with preserved ejection fraction (HFpEF): Status: Acute (3) Chronic a-fib: Status: Acute Plan Last complete echocardiogram from 2022 with LVEF of 65 70%. Increased right ventricular size. Severely dilated atria. Moderate to severe pulmonary hypertension. Moderate tricuspid regurgitation. In a follow-up limited study from May, severely increased right heart pressure with moderate pulmonary hypertension. Myocardial perfusion imaging study from 2022 shows no clear evidence of any ischemia or infarction. Chest x-ray this admission with no acute abnormality. Overall, many chronic comorbidities. Ongoing acute on chronic anemia. With regard to EGD/colonoscopy may proceed as planned. Intermediate cardiac risk. As he already has increased filling pressures, avoid any IV fluids. If requires blood transfusion, then also give diuretics. Discussed with Jen Diaz. Procedures Date of Service Date of Service: 08/02/23
--- NOTE | 2023-08-02 09:59 | HO.PM.IMPN ---
Subjective Subjective Date of Service: 08/02/23 Physical Exam Vital Signs: Vital Signs: Last Vital Signs Temp 98.2 F 08/02/23 07:17 Pulse 65 08/02/23 07:45 Resp 20 08/02/23 07:45 BP 117/60 08/02/23 07:17 Pulse Ox 97 08/02/23 07:17 O2 Del Method Nasal Cannula 08/02/23 07:17 O2 Flow Rate 2 08/02/23 07:17 Oxygen Flow Rate 2 07/30/23 10:41 BMI result Body Mass Index 31.4 Objective Data Active Medications Acetaminophen (Acetaminophen 325 Mg Tablet) 650 mg PO Q6H PRN PRN Reason: Pain, Mild (Pain Scale 1-3) Albuterol Sulfate (Albuterol Sulfate 90 Mcg 8 Gm Inhaler) 1 puff INHALE QID PRN PRN Reason: shortness of breath or wheezing Ascorbic Acid (Ascorbic Acid 500 Mg Tablet) 500 mg PO DAILY [facility] Last Admin: 08/02/23 07:21 Dose: 500 mg Documented By: GRAYSON Cyanocobalamin (Cyanocobalamin (Vitamin B-12) 1,000 Mcg Tablet) 1,000 mcg PO DAILY [facility] Last Admin: 08/02/23 07:21 Dose: 1,000 mcg Documented By: GRAYSON Dextrose (Dextrose 50 % 25 Gm/50 Ml Syringe) 25 gm IVPUSH Q15M PRN; Protocol PRN Reason: per Hypoglycemia Standing Ord. Digoxin (Digoxin 0.125 Mg Tablet) 0.125 mg PO SUTUTHSA@2100 [facility] Last Admin: 08/01/23 20:20 Dose: 0.125 mg Documented By: SUPA Docusate Sodium (Docusate Sodium 100 Mg Capsule) 100 mg PO DAILY PRN PRN Reason: Constipation Ezetimibe (Ezetimibe 10 Mg Tablet) 10 mg PO DAILY [facility] Last Admin: 08/02/23 07:21 Dose: 10 mg Documented By: GRAYSON Ferrous Sulfate (Ferrous Sulfate 324 Mg Tablet.Dr) 324 mg PO DAILY [facility] Last Admin: 08/02/23 07:21 Dose: 324 mg Documented By: GRAYSON Fluticasone/Vilanterol (Fluticasone/Vilanterol 100/25 Blst.W.Dev) 1 puff INHALE RDAILY [facility] Last Admin: 08/02/23 07:44 Dose: 1 puff Documented By: MACIEJ Furosemide (Furosemide 20 Mg/2 Ml Vial) 20 mg IVPUSH ONCE [facility]; Protocol Last Admin: 07/30/23 18:01 Dose: 20 mg Documented By: ABE Glucose (Glucose Gel 15 Gm Gel..Gram.) 15 gm PO Q15M PRN; Protocol PRN Reason: per Hypoglycemia Standing Ord. Insulin Human Lispro (Insulin Lispro 100 Unit/Ml 3 Ml Vial) 0 unit SUBCUT QIDACHS [facility]; Protocol Last Admin: 08/02/23 07:23 Dose: Not Given Documented By: GRAYSON Non-Admin Reason: No Insulin Coverage Metolazone (Metolazone 2.5 Mg Tablet) 2.5 mg PO DAILY [facility] Ondansetron HCl (Ondansetron Hcl 4 Mg/2 Ml Vial) 4 mg IVPUSH Q8H PRN PRN Reason: Nausea and Vomiting Pravastatin Sodium (Pravastatin Sodium 80 Mg Tablet) 80 mg PO BEDTIME [facility] Last Admin: 08/01/23 20:20 Dose: 80 mg Documented By: SUPA Sodium Chloride (0.9 % Sodium Chloride Flush 3 Ml Syringe) 3 ml IVFLUSH QSHIFT [facility] Last Admin: 08/02/23 07:22 Dose: 3 ml Documented By: GRAYSON Tiotropium [place] (Tiotropium [place] 2.5 Mcg 1 Puff/2.5 Mcg Mist.Inhal) 2 puff INHALE RDAILY [facility] Last Admin: 08/02/23 07:45 Dose: 2 puff Documented By: MACIEJ Torsemide (Torsemide 20 Mg Tablet) 40 mg PO BID [facility]; Protocol Labs 08/02/23 06:33 08/02/23 06:33 Labs: Laboratory Results - last 24 hr 07/30/23 08/01/23 08/01/23 12:33 12:08 16:08 MCV MCH MCHC RDW Plt Count MPV Absolute Nucleated RBC Nucleated RBC % (auto) PT INR Anion Gap Estim Creat Clear Calc Estimated GFR POC Glucose 122 H 157 H Random Glucose Calcium Blood Type O Positive Antibody Screen NEGATIVE Crossmatch See Detail 08/01/23 08/02/23 08/02/23 20:05 06:33 07:16 MCV 95.4 MCH 28.5 MCHC 29.9 L RDW 19.9 H Plt Count 229 MPV 10.6 Absolute Nucleated RBC 0.000 Nucleated RBC % (auto) 0.0 PT 19.6 H D INR 1.6 H Anion Gap 12 Estim Creat Clear Calc 48.6 Estimated GFR 46 POC Glucose 165 H 114 Random Glucose 113 Calcium 8.8 Blood Type Antibody Screen Crossmatch Assessment and Plan (1) Chronic heart failure with preserved ejection fraction (HFpEF): Status: Acute Plan 72-year-old male with history of heart failure with preserved ejection fraction, pulmonary hypertension, hypertension, CKD stage 3, COPD with chronic hypoxemic respiratory failure on 2 L supplemental O2 at baseline, [id number]-appquxkwi type 2 diabetes, chronic atrial fibrillation anticoagulated with Coumadin and on digoxin, hyperlipidemia, venous insufficiency, and chronic anemia send in with abnormal labs from routine lab draw Acute on chronic macrocytic anemia, symptomatic history of anemia, seems multifactorial due to anemia of chronic dz with underlying CKD, also on iron and B12 supplementation follow outpatient with hematology - has had bone marrow exam, but unclear results heme + stools but not overt bleeding iron, b12, folate wnl s/p 4 units PRBC with stablization of HH GI consult>plan for EGD and colo, cardio consult for risk stratification clear liquid diet HFpEF limited echo 05/23 - dilated right ventricle, mod elevated right ventricular pressures, moderate pulmonary hypertension no overt pulmonary edema low sodium diet bicarb elevated, renal function trending up, will hold home torsemide and metolozone re-eval need for diuretics in a.m. follow renal function closely CKD stage 3 SCr trending up slightly baseline follow renal function daily chronic atrial fibrillation- rate controlled INR supratherapeutic at 1.6 hold warfain due to anemia monitor INR daily continue digoxin COPD/chronic respiratory failure on 2L oxygen at baseline, currently saturating in the mid 90s on baseline oxygen no acute exacerbation continue baseline inhalers [id number]-[id number] type 2 diabetes-without hyperglycemia SSI, POCs, ADA diet hold metformin HLD continue statin dvt ppx - coumadin on hold - supratherapeutic INR attending - dr. Espinal Requires ongoing inpatient stay for management of acute on chronic symptomatic anemia, need for blood transfusion, specialist evaluation and close monitoring of respiratory status given underlying CHF more receiving blood transfusion Quality Stroke Does the patient have a stroke diagnosis?: No VTE Prior VTE?: No VTE Risk Level:: Medical - moderate - high VTE Device Contraindication: N/A - Device Ordered VTE Drug Contraindication: Treatment Not Indicated
[2023-08-02] MEDS: Furosemide 40 MG/4 ML VIAL IVPUSH ×2 (10:53→17:25)
[2023-08-02] MEDS: Insulin Lispro 100 UNIT/ML 3 ML VIAL SUBCUT (11:40)
[2023-08-02 11:42] LABS: Glucose, Whole Blood 186 mg/dL (60-115)
[2023-08-02] MEDS: PEG 3350/Na Sulf,Bicarb,Cl/KCL 4,000 ML SOLN.RECON 4000 ML PO (14:36)
[2023-08-02 16:27] LABS: Glucose, Whole Blood 115 mg/dL (60-115)
[2023-08-02 20:25] LABS: Glucose, Whole Blood 178 mg/dL (60-115)
[2023-08-02] MEDS: Digoxin 0.125 MG TABLET PO (20:55)
[2023-08-02] MEDS: Pravastatin Sodium 80 MG TABLET PO (20:56)
[2023-08-03] VITALS (11 sets, daily range): BP systolic 97–148; BP diastolic 41–70; PULSE 62–82; RESP 14–24; TEMP 36.3–37.2; O2SAT 92–100
[2023-08-03 07:04] LABS: INTERNATIONAL NORM RATIO 1.4 (0.9-1.1); Prothrombin Time 16.9 SEC (11.1-13.3)
[2023-08-03 07:07] LABS: Hematocrit 28.7 % (42.0-52.0); Hemoglobin 8.5 g/dl (14.0-18.0); Mean Corpuscular HGB Conc 29.6 g/dl (31.0-36.0); Mean Corpuscular Hemoglobin 27.9 pg (27.0-33.0); Mean Corpuscular Volume 94.1 fL (80.0-98.0); Mean Platelet Volume 10.2 fL (9.4-12.4); Platelet Count 223 X10*3/uL (160-400); Red Blood Count 3.05 X10*6/uL (4.60-5.80); Red Cell Distribution Width 19.7 % (11.0-16.0); White Blood Count 6.5 X10*3/uL (4.8-10.8)
[2023-08-03] MEDS: Furosemide 40 MG/4 ML VIAL IVPUSH (07:33)
[2023-08-03] MEDS: Ezetimibe 10 MG TABLET PO (07:34)
[2023-08-03] MEDS: 0.9 % Sodium Chloride Flush 3 ML SYRINGE IVFLUSH ×2 (07:34→20:28)
[2023-08-03] MEDS: Cyanocobalamin (Vitamin B-12) 1,000 MCG TABLET 1000 MCG PO (07:34)
[2023-08-03] MEDS: Ferrous Sulfate 324 MG TABLET.DR PO (07:34)
[2023-08-03] MEDS: Ascorbic Acid 500 MG TABLET PO (07:34)
[2023-08-03 07:36] LABS: Anion Gap 12 (12-20); Blood Urea Nitrogen 23 mg/dL (9-16); Calcium 8.3 mg/dL (8.4-10.2); Carbon Dioxide 43 mmol/L (22-29); Chloride 91 mmol/L (96-108); Creatinine Clr Calc Pharmacy 47.3; Estimated Glomerular Filt Rate 45; Glucose Random 118 mg/dL (60-115); Potassium 3.1 mmol/L (3.3-5.1); Sodium 143 mmol/L (135-145)
[2023-08-03 07:37] LABS: Glucose, Whole Blood 128 mg/dL (60-115)
[2023-08-03] MEDS: Fluticasone/Vilanterol 100/25 BLST.W.DEV 1 PUFF INHALE (07:53)
[2023-08-03] MEDS: Tiotropium Bromide 2.5 mcg 1 PUFF/2.5 MCG MIST.INHAL 2 PUFF INHALE (07:54)
[2023-08-03] MEDS: acetaZOLAMIDE 250 MG TABLET PO ×2 (08:29→20:28)
[2023-08-03] MEDS: Potassium Chloride ER 20 MEQ TAB.ER.PRT 40 MEQ PO (08:29)
--- NOTE | 2023-08-03 08:46 | HO.PM.IMPN ---
Subjective Subjective Date of Service: 08/03/23 Review of Systems Follow up anemia, GI bleed HH stable no pain Physical Exam Vital Signs: Vital Signs: Last Vital Signs Temp 98.6 F 08/03/23 07:25 Pulse 78 08/03/23 07:56 Resp 15 08/03/23 07:56 BP 111/68 08/03/23 07:25 Pulse Ox 96 08/03/23 07:25 O2 Del Method Nasal Cannula 08/03/23 07:25 O2 Flow Rate 2 08/03/23 07:25 Oxygen Flow Rate 2 07/30/23 10:41 BMI result Body Mass Index 31.4 Appearing in no acute distress lung sounds are clear to auscultation heart regular rate rhythm, clear S1, S2 positive bowel sounds, abdomen is soft, nontender neuro patient is alert x3, no focal deficits Objective Data Active Medications Acetaminophen (Acetaminophen 325 Mg Tablet) 650 mg PO Q6H PRN PRN Reason: Pain, Mild (Pain Scale 1-3) Acetazolamide (Acetazolamide 250 Mg Tablet) 250 mg PO BID [facility] Last Admin: 08/03/23 08:29 Dose: 250 mg Documented By: GRAYSON Albuterol Sulfate (Albuterol Sulfate 90 Mcg 8 Gm Inhaler) 1 puff INHALE QID PRN PRN Reason: shortness of breath or wheezing Ascorbic Acid (Ascorbic Acid 500 Mg Tablet) 500 mg PO DAILY [facility] Last Admin: 08/03/23 07:34 Dose: 500 mg Documented By: GRAYSON Bisacodyl (Bisacodyl 5 Mg Tablet.) 10 mg PO ONCE ONE Stop: 08/03/23 13:01 Cyanocobalamin (Cyanocobalamin (Vitamin B-12) 1,000 Mcg Tablet) 1,000 mcg PO DAILY [facility] Last Admin: 08/03/23 07:34 Dose: 1,000 mcg Documented By: GRAYSON Dextrose (Dextrose 50 % 25 Gm/50 Ml Syringe) 25 gm IVPUSH Q15M PRN; Protocol PRN Reason: per Hypoglycemia Standing Ord. Digoxin (Digoxin 0.125 Mg Tablet) 0.125 mg PO SUTUTHSA@2100 [facility] Last Admin: 08/02/23 20:55 Dose: 0.125 mg Documented By: GENE Docusate Sodium (Docusate Sodium 100 Mg Capsule) 100 mg PO DAILY PRN PRN Reason: Constipation Ezetimibe (Ezetimibe 10 Mg Tablet) 10 mg PO DAILY [facility] Last Admin: 08/03/23 07:34 Dose: 10 mg Documented By: GRAYSON Ferrous Sulfate (Ferrous Sulfate 324 Mg Tablet.Dr) 324 mg PO DAILY [facility] Last Admin: 08/03/23 07:34 Dose: 324 mg Documented By: GRAYSON Fluticasone/Vilanterol (Fluticasone/Vilanterol 100/25 Blst.W.Dev) 1 puff INHALE RDAILY [facility] Last Admin: 08/03/23 07:53 Dose: 1 puff Documented By: HUYEN Furosemide (Furosemide 20 Mg/2 Ml Vial) 20 mg IVPUSH ONCE [facility]; Protocol Last Admin: 07/30/23 18:01 Dose: 20 mg Documented By: ABE Furosemide (Furosemide 40 Mg/4 Ml Vial) 40 mg IVPUSH BID@0900,1800 [facility]; Protocol Last Admin: 08/03/23 07:33 Dose: 40 mg Documented By: GRAYSON Glucose (Glucose Gel 15 Gm Gel..Gram.) 15 gm PO Q15M PRN; Protocol PRN Reason: per Hypoglycemia Standing Ord. Insulin Human Lispro (Insulin Lispro 100 Unit/Ml 3 Ml Vial) 0 unit SUBCUT QIDACHS [facility]; Protocol Last Admin: 08/03/23 07:40 Dose: Not Given Documented By: GRAYSON Non-Admin Reason: No Insulin Coverage Metolazone (Metolazone 2.5 Mg Tablet) 2.5 mg PO DAILY [facility] Ondansetron HCl (Ondansetron Hcl 4 Mg/2 Ml Vial) 4 mg IVPUSH Q8H PRN PRN Reason: Nausea and Vomiting Pravastatin Sodium (Pravastatin Sodium 80 Mg Tablet) 80 mg PO BEDTIME [facility] Last Admin: 08/02/23 20:56 Dose: 80 mg Documented By: GENE Sodium Chloride (0.9 % Sodium Chloride Flush 3 Ml Syringe) 3 ml IVFLUSH QSHIFT [facility] Last Admin: 08/03/23 07:34 Dose: 3 ml Documented By: GRAYSON Tiotropium [place] (Tiotropium [place] 2.5 Mcg 1 Puff/2.5 Mcg Mist.Inhal) 2 puff INHALE RDAILY [facility] Last Admin: 08/03/23 07:54 Dose: 2 puff Documented By: HUYEN Torsemide (Torsemide 20 Mg Tablet) 40 mg PO BID [facility]; Protocol Labs 08/03/23 06:25 08/03/23 06:25 Labs: Laboratory Results - last 24 hr 08/02/23 08/02/23 08/02/23 11:10 16:23 20:04 MCV MCH MCHC RDW Plt Count MPV Absolute Nucleated RBC Nucleated RBC % (auto) PT INR Anion Gap Estim Creat Clear Calc Estimated GFR POC Glucose 186 H 115 178 H Random Glucose Calcium 08/03/23 08/03/23 06:25 07:32 MCV 94.1 MCH 27.9 MCHC 29.6 L RDW 19.7 H Plt Count 223 MPV 10.2 Absolute Nucleated RBC 0.000 Nucleated RBC % (auto) 0.0 PT 16.9 H INR 1.4 H Anion Gap 12 Estim Creat Clear Calc 47.3 Estimated GFR 45 POC Glucose 128 H Random Glucose 118 H Calcium 8.3 L Assessment and Plan (1) Chronic heart failure with preserved ejection fraction (HFpEF): Status: Acute Plan 72-year-old male with history of heart failure with preserved ejection fraction, pulmonary hypertension, hypertension, CKD stage 3, COPD with chronic hypoxemic respiratory failure on 2 L supplemental O2 at baseline, urg-axqjznn-tmlnkvqmr type 2 diabetes, chronic atrial fibrillation anticoagulated with Coumadin and on digoxin, hyperlipidemia, venous insufficiency, and chronic anemia send in with abnormal labs from routine lab draw Acute on chronic macrocytic anemia, symptomatic history of anemia, seems multifactorial due to anemia of chronic dz with underlying CKD, also on iron and B12 supplementation follow outpatient with hematology - has had bone marrow exam, but unclear results heme + stools but not overt bleeding iron, b12, folate wnl s/p 4 units PRBC with stablization of HH GI consult>EGD and colo today Risk stratification as per cardio>Intermediate cardiac risk. HFpEF limited echo 05/23 - dilated right ventricle, mod elevated right ventricular pressures, moderate pulmonary hypertension no overt pulmonary edema low sodium diet bicarb elevated, renal function trending up, will hold home torsemide and metolozone s/p IV lasix follow renal function closely CKD stage 3 SCr trending up slightly baseline follow renal function daily chronic atrial fibrillation- rate controlled INR supratherapeutic at 1.4 hold warfain due to anemia monitor INR daily continue digoxin COPD/chronic respiratory failure on 2L oxygen at baseline, currently saturating in the mid 90s on baseline oxygen no acute exacerbation continue baseline inhalers vfg-vewimyp-bsmjivqzp type 2 diabetes-without hyperglycemia SSI, POCs, ADA diet hold metformin HLD continue statin dvt ppx - coumadin on hold, anemia attending - dr. Johnson Requires ongoing inpatient stay for management of acute on chronic symptomatic anemia, need for blood transfusion, specialist evaluation and close monitoring of respiratory status given underlying CHF more receiving blood transfusion Quality Stroke Does the patient have a stroke diagnosis?: No VTE Prior VTE?: No VTE Risk Level:: Medical - moderate - high VTE Device Contraindication: N/A - Device Ordered VTE Drug Contraindication: Treatment Not Indicated
--- NOTE | 2023-08-03 08:56 | PM.CNNEP ---
History of Present Illness Reason for Consult Consult date: 08/04/23 Reason for consult: CKD Chief Complaint Chief complaint: Symptomatic Anemia History of Present Illness Narrative: 72-year-old male with history of heart failure with preserved ejection fraction, pulmonary hypertension, hypertension, CKD stage 3, - usually follwos with Dr. Yousif MIRANDA with chronic hypoxemic respiratory failure on 2 L supplemental O2 at baseline, lgv-zedzbnu-iwkehzinr type 2 diabetes, chronic atrial fibrillation anticoagulated with Coumadin and on digoxin, hyperlipidemia, venous insufficiency, and chronic anemia who was sent to the ED due to abnormal labs. He was seen in his PCP's office and had outpatient routine labs . He was called this morning and requested to come to the emergency department due to anemia. Patient reports increasing dyspnea on exertion from his baseline. He denies any hematuria, blood in his stool. NSAIDs or drink alcohol. In the emergency department his INR was noted to be elevated at 4.9, was noted to have heme-positive stools. He reports a history of anemia and does follow with a track repair person in [place], he has had a bone marrow examination recently but he is unsure what the results were. He has had both an endoscopy and colonoscopy multiple years ago which reportedly normal Serum creatinine is close to baseline of 1.5 mg/dL Review of Systems Constitutional: Denies anorexia, Denies fever(s) and Denies weakness Eyes: Denies blurry vision Cardiovascular: Denies no additional cardiovascular complaints and Denies dyspnea Respiratory: Reports no additional respiratory complaints, Reports cough and Denies dyspnea Gastrointestinal: Denies melena and Denies diarrhea Genitourinary: Denies hematuria Musculoskeletal: Denies tingling Skin/Breast: Denies rash Denies focal weakness, Denies tingling, Denies tremor(s) and Denies weakness PMFSH Past Medical History Medical History Macrocytic anemia Partial small bowel obstruction Anemia CHF (congestive heart failure) Diabetes mellitus CKD (chronic kidney disease) HTN (hypertension) Biatrial enlargement Pulmonary hypertension Chronic heart failure with preserved ejection fraction (HFpEF) HLD (hyperlipidemia) Chronic a-fib Current use of anticoagulant therapy Family History Family History Father Cancer Mother No problems noted. Surgical History Surgical History Hx of total hip arthroplasty Hx of colonoscopy Hx of esophagogastroduodenoscopy History of nephrectomy Hx of hernia repair Social History Social History Household Members: Spouse Housing: House Do you presently have visiting nurse or other home services: No Comment: pt. refused bed exit alarm. Pt. calls appropriately for OOB. Patient Tobacco Use Status: Former Tobacco user Quit Date: 13 yrs ago Second Hand Smoke Exposure: No Advance Directives Date on File: 06/01/00 service: No Meds Allergies Allergy/AdvReac Type Severity Reaction Status Date / Time No Known Allergies Allergy Verified 07/24/23 11:12 Active Medications: Current Medications Acetaminophen (Acetaminophen 325 Mg Tablet) 650 mg PO Q6H PRN PRN Reason: Pain, Mild (Pain Scale 1-3) Acetazolamide (Acetazolamide 250 Mg Tablet) 250 mg PO BID [facility] Last Admin: 08/03/23 08:29 Dose: 250 mg Albuterol Sulfate (Albuterol Sulfate 90 Mcg 8 Gm Inhaler) 1 puff INHALE QID PRN PRN Reason: shortness of breath or wheezing Ascorbic Acid (Ascorbic Acid 500 Mg Tablet) 500 mg PO DAILY [facility] Last Admin: 08/03/23 07:34 Dose: 500 mg Bisacodyl (Bisacodyl 5 Mg Tablet.) 10 mg PO ONCE ONE Stop: 08/03/23 13:01 Cyanocobalamin (Cyanocobalamin (Vitamin B-12) 1,000 Mcg Tablet) 1,000 mcg PO DAILY [facility] Last Admin: 08/03/23 07:34 Dose: 1,000 mcg Dextrose (Dextrose 50 % 25 Gm/50 Ml Syringe) 25 gm IVPUSH Q15M PRN; Protocol PRN Reason: per Hypoglycemia Standing Ord. Digoxin (Digoxin 0.125 Mg Tablet) 0.125 mg PO SUTUTHSA@2100 [facility] Last Admin: 08/02/23 20:55 Dose: 0.125 mg Docusate Sodium (Docusate Sodium 100 Mg Capsule) 100 mg PO DAILY PRN PRN Reason: Constipation Ezetimibe (Ezetimibe 10 Mg Tablet) 10 mg PO DAILY [facility] Last Admin: 08/03/23 07:34 Dose: 10 mg Ferrous Sulfate (Ferrous Sulfate 324 Mg Tablet.) 324 mg PO DAILY [facility] Last Admin: 08/03/23 07:34 Dose: 324 mg Fluticasone/Vilanterol (Fluticasone/Vilanterol 100/25 Blst.W.Dev) 1 puff INHALE RDAILY [facility] Last Admin: 08/03/23 07:53 Dose: 1 puff Furosemide (Furosemide 20 Mg/2 Ml Vial) 20 mg IVPUSH ONCE [facility]; Protocol Last Admin: 07/30/23 18:01 Dose: 20 mg Glucose (Glucose Gel 15 Gm Gel..Gram.) 15 gm PO Q15M PRN; Protocol PRN Reason: per Hypoglycemia Standing Ord. Insulin Human Lispro (Insulin Lispro 100 Unit/Ml 3 Ml Vial) 0 unit SUBCUT QIDACHS [facility]; Protocol Last Admin: 08/03/23 07:40 Dose: Not Given Metolazone (Metolazone 2.5 Mg Tablet) 2.5 mg PO DAILY [facility] Ondansetron HCl (Ondansetron Hcl 4 Mg/2 Ml Vial) 4 mg IVPUSH Q8H PRN PRN Reason: Nausea and Vomiting Pravastatin Sodium (Pravastatin Sodium 80 Mg Tablet) 80 mg PO BEDTIME [facility] Last Admin: 08/02/23 20:56 Dose: 80 mg Sodium Chloride (0.9 % Sodium Chloride Flush 3 Ml Syringe) 3 ml IVFLUSH QSHIFT [facility] Last Admin: 08/03/23 07:34 Dose: 3 ml Tiotropium [place] (Tiotropium [place] 2.5 Mcg 1 Puff/2.5 Mcg Mist.Inhal) 2 puff INHALE RDAILY [facility] Last Admin: 08/03/23 07:54 Dose: 2 puff Torsemide (Torsemide 20 Mg Tablet) 40 mg PO BID [facility]; Protocol Home Medications Medication Instructions Recorded Confirmed Last Taken Type ascorbic acid (vitamin C) 500 mg 500 mg PO DAILY 05/01/20 07/30/23 07/30/23 History tablet ezetimibe 10 mg tablet 10 mg PO DAILY 05/01/20 07/30/23 07/30/23 History ferrous sulfate 325 mg (65 mg 325 mg PO DAILY 05/01/20 07/30/23 07/30/23 History iron) tablet metformin 500 mg tablet 500 mg PO BIDWM 05/01/20 07/30/23 07/30/23 History tiotropium bromide 18 mcg capsule 18 mcg PO DAILY 05/01/20 07/30/23 07/30/23 History with inhalation device albuterol sulfate 90 mcg/actuation 1 inh inhalation QID PRN shortness 11/10/22 07/30/23 07/30/23 History aerosol inhaler of breath or wheezing cyanocobalamin (vitamin B-12) 1,000 mcg PO DAILY 12/15/22 07/30/23 07/30/23 History 1,000 mcg tablet warfarin 2.5 mg tablet 2.5 mg PO MO 04/03/23 07/30/23 07/30/23 History warfarin 5 mg tablet 5 mg PO SUTUWETHFRSA 05/22/23 07/30/23 07/30/23 History digoxin 125 mcg (0.125 mg) tablet 125 mcg PO SUTUTHSA@2100 07/30/23 07/30/23 07/29/23 History fluticasone furoate 100 1 inh inhalation DAILY 07/30/23 07/30/23 07/30/23 History mcg-vilanterol 25 mcg/dose inhalation powder (Breo Ellipta) pravastatin 80 mg tablet 80 mg PO BEDTIME 07/30/23 07/30/23 07/29/23 History Physical Exam Vital Signs: Last Vital Signs Temp 98.6 F 08/03/23 07:25 Pulse 78 08/03/23 07:56 Resp 15 08/03/23 07:56 BP 111/68 08/03/23 07:25 Pulse Ox 96 08/03/23 07:25 O2 Del Method Nasal Cannula 08/03/23 07:25 O2 Flow Rate 2 08/03/23 07:25 Oxygen Flow Rate 2 07/30/23 10:41 BMI result Body Mass Index 31.4 Awake. Comfortable. Neck is supple. Mucosa moist. Lungs bilateral scattered rhonchi. Heart S1-S2 heard no gallop. Abdomen soft. Extremities no edema. No involuntary movements. No myoclonus. Results Lab Results 08/04/23 07:28 08/03/23 06:25 Lab results: Chemistry 08/02/23 08/03/23 06:33 06:25 Sodium 142 143 Potassium 3.4 3.1 L Carbon Dioxide 41 H* 43 H* BUN 24 H 23 H Creatinine 1.48 H 1.52 H Calcium 8.8 8.3 L Hematology 08/01/23 08/02/23 08/03/23 15:15 06:33 06:25 WBC 6.9 6.5 Hgb 8.6 L D 8.6 L 8.5 L Plt Count 229 223 Assessment and Plan (1) Chronic heart failure with preserved ejection fraction (HFpEF): Status: Acute (2) Anemia: Status: Acute (3) CKD (chronic kidney disease): Status: Acute Plan Elderly man with CKD Renal function is close to baseline of 1.5 Continue to avoid nephrotoxins Optimize BP Anemia Multifactorai GI bleed Check Iron studies and EPO levels Awiat EGD Volume status acceptable Continue with current diruetic regimen for now Procedures Date of Service Date of Service: 08/04/23
[2023-08-03 11:49] LABS: Glucose, Whole Blood 122 mg/dL (60-115)
[2023-08-03] MEDS: bisacodyL 5 MG TABLET.DR 10 MG PO (12:15)
[2023-08-03 15:09] LABS: Glucose, Whole Blood 107 mg/dL (60-115)
--- NOTE | 2023-08-03 15:20 | MHC.SHP ---
Pre-Procedural Eval Section A - 24 Hr Update-Section A only Date of Service: 08/03/23 The patient is an INPATIENT: Yes Changes since office visit: Yes New Medical Problems, Yes Changes in Medication and Yes Patient answered all questions; No Cold of Flu in the past 2 weeks The patient has been examined within 24 hours of the surgical procedure. The History & Physical has been completed within 30 days and I have reviewed it.: Yes Section B - Complete if H&P > 30 days Chief Complaint: Symptomatic Anemia Allergies: Allergies Allergy/AdvReac Type Severity Reaction Status Date / Time No Known Allergies Allergy Verified 07/24/23 11:12 Plan Diagnosis/Plan: Unchanged I have reviewed the history and physical and performed a pertinent physical examination on my patient. No changes have occurred unless specified. Time Spent With Patient Time: Total time managing care of this patient today ____ minutes.
--- NOTE | 2023-08-03 15:26 | MHC.CM.PN ---
EMR reviewed and per MD rounds, pt is not medically cleared for D/C today due to management for symptomatic anemia, with pt getting an EDG and colonoscopy today. CM will continue to follow.
--- NOTE | 2023-08-03 15:39 | P.CONAN_ITS ---
[facility] Active Problems Active Problems: All Active Problems (Updated 08/03/23 @ 08:58 by Candido Feliciano MD) Preoperative cardiovascular examination (Acute) SMART (dyspnea on exertion) (Acute) Guaiac positive stools (Acute) Acute on chronic anemia (Acute) Venous insufficiency of both lower extremities (Acute) Enlarged thoracic aorta (Acute) Anemia (Acute) CKD (chronic kidney disease) (Acute) Chronic heart failure with preserved ejection fraction (HFpEF) (Acute) Chronic a-fib (Acute) CHF (congestive heart failure) (Acute) Pulmonary hypertension (Acute) HTN (hypertension) (Acute) HLD (hyperlipidemia) (Acute) Past Medical History Medical History Macrocytic anemia Partial small bowel obstruction Anemia CHF (congestive heart failure) Diabetes mellitus CKD (chronic kidney disease) HTN (hypertension) Biatrial enlargement Pulmonary hypertension Chronic heart failure with preserved ejection fraction (HFpEF) HLD (hyperlipidemia) Chronic a-fib Current use of anticoagulant therapy Family History Family History Father Cancer Mother No problems noted. Surgical History Surgical History Hx of total hip arthroplasty Hx of colonoscopy Hx of esophagogastroduodenoscopy History of nephrectomy Hx of hernia repair History of Problems with Anesthesia: No Social History Social History Household Members: Spouse Housing: House Do you presently have visiting nurse or other home services: No Patient Tobacco Use Status: Former Tobacco user Quit Date: 13 yrs ago Second Hand Smoke Exposure: No Advance Directives Date on File: 06/01/00 service: No Meds Allergies Allergy/AdvReac Type Severity Reaction Status Date / Time No Known Allergies Allergy Verified 07/24/23 11:12 Active Medications: Current Medications Acetaminophen (Acetaminophen 325 Mg Tablet) 650 mg PO Q6H PRN PRN Reason: Pain, Mild (Pain Scale 1-3) Acetazolamide (Acetazolamide 250 Mg Tablet) 250 mg PO BID [facility] Last Admin: 08/03/23 08:29 Dose: 250 mg Albuterol Sulfate (Albuterol Sulfate 90 Mcg 8 Gm Inhaler) 1 puff INHALE QID PRN PRN Reason: shortness of breath or wheezing Ascorbic Acid (Ascorbic Acid 500 Mg Tablet) 500 mg PO DAILY [facility] Last Admin: 08/03/23 07:34 Dose: 500 mg Cyanocobalamin (Cyanocobalamin (Vitamin B-12) 1,000 Mcg Tablet) 1,000 mcg PO DAILY [facility] Last Admin: 08/03/23 07:34 Dose: 1,000 mcg Dextrose (Dextrose 50 % 25 Gm/50 Ml Syringe) 25 gm IVPUSH Q15M PRN; Protocol PRN Reason: per Hypoglycemia Standing Ord. Digoxin (Digoxin 0.125 Mg Tablet) 0.125 mg PO SUTUTHSA@2100 [facility] Last Admin: 08/02/23 20:55 Dose: 0.125 mg Docusate Sodium (Docusate Sodium 100 Mg Capsule) 100 mg PO DAILY PRN PRN Reason: Constipation Ezetimibe (Ezetimibe 10 Mg Tablet) 10 mg PO DAILY [facility] Last Admin: 08/03/23 07:34 Dose: 10 mg Ferrous Sulfate (Ferrous Sulfate 324 Mg Tablet.Dr) 324 mg PO DAILY [facility] Last Admin: 08/03/23 07:34 Dose: 324 mg Fluticasone/Vilanterol (Fluticasone/Vilanterol 100/25 Blst.W.Dev) 1 puff INHALE RDAILY [facility] Last Admin: 08/03/23 07:53 Dose: 1 puff Furosemide (Furosemide 20 Mg/2 Ml Vial) 20 mg IVPUSH ONCE [facility]; Protocol Last Admin: 07/30/23 18:01 Dose: 20 mg Glucose (Glucose Gel 15 Gm Gel..Gram.) 15 gm PO Q15M PRN; Protocol PRN Reason: per Hypoglycemia Standing Ord. Insulin Human Lispro (Insulin Lispro 100 Unit/Ml 3 Ml Vial) 0 unit SUBCUT QIDACHS [facility]; Protocol Last Admin: 08/03/23 12:09 Dose: Not Given Metolazone (Metolazone 2.5 Mg Tablet) 2.5 mg PO DAILY [facility] Ondansetron HCl (Ondansetron Hcl 4 Mg/2 Ml Vial) 4 mg IVPUSH Q8H PRN PRN Reason: Nausea and Vomiting Pravastatin Sodium (Pravastatin Sodium 80 Mg Tablet) 80 mg PO BEDTIME [facility] Last Admin: 08/02/23 20:56 Dose: 80 mg Sodium Chloride (0.9 % Sodium Chloride Flush 3 Ml Syringe) 3 ml IVFLUSH QSHIFT [facility] Last Admin: 08/03/23 07:34 Dose: 3 ml Tiotropium [place] (Tiotropium [place] 2.5 Mcg 1 Puff/2.5 Mcg Mist.Inhal) 2 puff INHALE RDAILY [facility] Last Admin: 08/03/23 07:54 Dose: 2 puff Torsemide (Torsemide 20 Mg Tablet) 40 mg PO BID [facility]; Protocol Home Medications Medication Instructions Recorded Confirmed Last Taken Type ascorbic acid (vitamin C) 500 mg 500 mg PO DAILY 05/01/20 07/30/23 07/30/23 History tablet ezetimibe 10 mg tablet 10 mg PO DAILY 05/01/20 07/30/23 07/30/23 History ferrous sulfate 325 mg (65 mg 325 mg PO DAILY 05/01/20 07/30/23 07/30/23 History iron) tablet metformin 500 mg tablet 500 mg PO BIDWM 05/01/20 07/30/23 07/30/23 History tiotropium bromide 18 mcg capsule 18 mcg PO DAILY 05/01/20 07/30/23 07/30/23 History with inhalation device albuterol sulfate 90 mcg/actuation 1 inh inhalation QID PRN shortness 11/10/22 07/30/23 07/30/23 History aerosol inhaler of breath or wheezing cyanocobalamin (vitamin B-12) 1,000 mcg PO DAILY 12/15/22 07/30/23 07/30/23 History 1,000 mcg tablet warfarin 2.5 mg tablet 2.5 mg PO MO 04/03/23 07/30/23 07/30/23 History warfarin 5 mg tablet 5 mg PO SUTUWETHFRSA 05/22/23 07/30/23 07/30/23 History digoxin 125 mcg (0.125 mg) tablet 125 mcg PO SUTUTHSA@2100 07/30/23 07/30/23 07/29/23 History fluticasone furoate 100 1 inh inhalation DAILY 07/30/23 07/30/23 07/30/23 Hist ory mcg-vilanterol 25 mcg/dose inhalation powder (Breo Ellipta) pravastatin 80 mg tablet 80 mg PO BEDTIME 07/30/23 07/30/23 07/29/23 History Exam Height,Weight and Vital Signs: Height 5 ft 8 in Weight 93.6 kg Last Vital Signs Temp 98.3 F 08/03/23 14:39 Pulse 69 08/03/23 14:39 Resp 18 08/03/23 14:39 BP 110/51 L 08/03/23 14:39 Pulse Ox 99 08/03/23 14:39 O2 Del Method Nasal Cannula 08/03/23 14:39 O2 Flow Rate 2 08/03/23 14:39 Oxygen Flow Rate 2 07/30/23 10:41 Pertinent Lab Results Pertinent Lab Results: Laboratory Tests 07/30/23 07/30/23 07/30/23 12:33 12:47 16:42 WBC 6.1 RBC 2.35 L D Hgb 6.7 L* D Hct 23.1 L D MCV 98.3 H MCH 28.5 MCHC 29.0 L RDW 19.8 H Plt Count 260 MPV 10.4 Immature Gran % (Auto) 0.3 Neut % (Auto) 71.4 Lymph % (Auto) 14.5 L [place] % (Auto) 10.9 Eos % (Auto) 2.6 Baso % (Auto) 0.3 Lymph # (Auto) 0.9 L [place] # (Auto) 0.7 Eos # (Auto) 0.2 Baso # (Auto) 0.0 Abs Immat Gran (auto) 0.02 Absolute Neuts (auto) 4.3 Absolute Nucleated RBC 0.000 Nucleated RBC % (auto) 0.0 Absolute Retic Percent Retic Immature Retic Fraction Retic Hgb Equivalent Haptoglobin Hold Purple Top PT 59.4 H INR 4.9 H Sodium 145 Potassium 3.7 Chloride 98 Carbon Dioxide 37 H Anion Gap 14 BUN 20 H Creatinine 1.73 H Estim Creat Clear Calc 41.9 Estimated GFR 39 POC Glucose 100 Random Glucose 105 Calcium 8.9 Iron 284 H TIBC 364 % Saturation 78 H Unsat Iron Binding 80 Ferritin 37 Total Bilirubin 0.4 AST 21 ALT 9 Alkaline Phosphatase 45 Lactate Dehydrogenase Troponin I High Sens 8.5 B-Natriuretic Peptide 129 H Total Protein 6.9 Albumin 3.7 Vitamin B12 Folate Stool Occult Blood POSITIVE Blood Type O Positive Antibody Screen NEGATIVE Crossmatch See Detail 07/30/23 07/31/23 07/31/23 20:56 06:18 07:53 WBC 6.0 RBC 2.46 L Hgb 7.0 L* Hct 24.0 L MCV 97.6 MCH 28.5 MCHC 29.2 L RDW 19.8 H Plt Count 248 MPV 10.3 Immature Gran % (Auto) 0.5 H Neut % (Auto) 65.9 Lymph % (Auto) 17.0 L [place] % (Auto) 12.3 H Eos % (Auto) 4.0 Baso % (Auto) 0.3 Lymph # (Auto) 1.0 L [place] # (Auto) 0.7 Eos # (Auto) 0.2 Baso # (Auto) 0.0 Abs Immat Gran (auto) 0.03 Absolute Neuts (auto) 4.0 Absolute Nucleated RBC 0.000 Nucleated RBC % (auto) 0.0 Absolute Retic 0.082 Percent Retic 3.4 H Immature Retic Fraction 23.5 H Retic Hgb Equivalent 23.5 L Haptoglobin 181 Hold Purple Top PT 53.1 H INR 4.4 H Sodium 144 Potassium 3.5 Chloride 93 L Carbon Dioxide 39 H Anion Gap 16 BUN 19 H Creatinine 1.83 H Estim Creat Clear Calc 39.3 Estimated GFR 36 POC Glucose 172 H 127 H Random Glucose 116 H Calcium 8.4 Iron TIBC % Saturation Unsat Iron Binding Ferritin Total Bilirubin AST ALT Alkaline Phosphatase Lactate Dehydrogenase 185 Troponin I High Sens B-Natriuretic Peptide 114 H Total Protein Albumin Vitamin B12 > 2000 H Folate 8.6 Stool Occult Blood Blood Type Antibody Screen Crossmatch 07/31/23 07/31/23 07/31/23 11:08 15:57 20:21 WBC RBC Hgb Hct MCV MCH MCHC RDW Plt Count MPV Immature Gran % (Auto) Neut % (Auto) Lymph % (Auto) [place] % (Auto) Eos % (Auto) Baso % (Auto) Lymph # (Auto) [place] # (Auto) Eos # (Auto) Baso # (Auto) Abs Immat Gran (auto) Absolute Neuts (auto) Absolute Nucleated RBC Nucleated RBC % (auto) Absolute Retic Percent Retic Immature Retic Fraction Retic Hgb Equivalent Haptoglobin Hold Purple Top PT INR Sodium Potassium Chloride Carbon Dioxide Anion Gap BUN Creatinine Estim Creat Clear Calc Estimated GFR POC Glucose 169 H 163 H 141 H Random Glucose Calcium Iron TIBC % Saturation Unsat Iron Binding Ferritin Total Bilirubin AST ALT Alkaline Phosphatase Lactate Dehydrogenase Troponin I High Sens B-Natriuretic Peptide Total Protein Albumin Vitamin B12 Folate Stool Occult Blood Blood Type Antibody Screen Crossmatch 08/01/23 08/01/23 08/01/23 06:13 09:07 12:08 WBC RBC Hgb Hct MCV MCH MCHC RDW Plt Count MPV Immature Gran % (Auto) Neut % (Auto) Lymph % (Auto) [place] % (Auto) Eos % (Auto) Baso % (Auto) Lymph # (Auto) [place] # (Auto) Eos # (Auto) Baso # (Auto) Abs Immat Gran (auto) Absolute Neuts (auto) Absolute Nucleated RBC Nucleated RBC % (auto) Absolute Retic Percent Retic Immature Retic Fraction Retic Hgb Equivalent Haptoglobin Hold Purple Top SEE NOTE PT 30.0 H D INR 2.5 H Sodium Potassium Chloride Carbon Dioxide Anion Gap BUN Creatinine Estim Creat Clear Calc Estimated GFR POC Glucose 202 H 122 H Random Glucose Calcium Iron TIBC % Saturation Unsat Iron Binding Ferritin Total Bilirubin AST ALT Alkaline Phosphatase Lactate Dehydrogenase Troponin I High Sens B-Natriuretic Peptide Total Protein Albumin Vitamin B12 Folate Stool Occult Blood Blood Type Antibody Screen Crossmatch 08/01/23 08/01/23 08/01/23 15:15 16:08 20:05 WBC RBC Hgb 8.6 L D Hct 28.4 L MCV MCH MCHC RDW Plt Count MPV Immature Gran % (Auto) Neut % (Auto) Lymph % (Auto) [place] % (Auto) Eos % (Auto) Baso % (Auto) Lymph # (Auto) [place] # (Auto) Eos # (Auto) Baso # (Auto) Abs Immat Gran (auto) Absolute Neuts (auto) Absolute Nucleated RBC Nucleated RBC % (auto) Absolute Retic Percent Retic Immature Retic Fraction Retic Hgb Equivalent Haptoglobin Hold Purple Top PT INR Sodium Potassium Chloride Carbon Dioxide Anion Gap BUN Creatinine Estim Creat Clear Calc Estimated GFR POC Glucose 157 H 165 H Random Glucose Calcium Iron TIBC % Saturation Unsat Iron Binding Ferritin Total Bilirubin AST ALT Alkaline Phosphatase Lactate Dehydrogenase Troponin I High Sens B-Natriuretic Peptide Total Protein Albumin Vitamin B12 Folate Stool Occult Blood Blood Type Antibody Screen Crossmatch 08/02/23 08/02/23 08/02/23 06:33 07:16 11:10 WBC 6.9 RBC 3.02 L D Hgb 8.6 L Hct 28.8 L MCV 95.4 MCH 28.5 MCHC 29.9 L RDW 19.9 H Plt Count 229 MPV 10.6 Immature Gran % (Auto) Neut % (Auto) Lymph % (Auto) [place] % (Auto) Eos % (Auto) Baso % (Auto) Lymph # (Auto) [place] # (Auto) Eos # (Auto) Baso # (Auto) Abs Immat Gran (auto) Absolute Neuts (auto) Absolute Nucleated RBC 0.000 Nucleated RBC % (auto) 0.0 Absolute Retic Percent Retic Immature Retic Fraction Retic Hgb Equivalent Haptoglobin Hold Purple Top PT 19.6 H D INR 1.6 H Sodium 142 Potassium 3.4 Chloride 92 L Carbon Dioxide 41 H* Anion Gap 12 BUN 24 H Creatinine 1.48 H Estim Creat Clear Calc 48.6 Estimated GFR 46 POC Glucose 114 186 H Random Glucose 113 Calcium 8.8 Iron TIBC % Saturation Unsat Iron Binding Ferritin Total Bilirubin AST ALT Alkaline Phosphatase Lactate Dehydrogenase Troponin I High Sens B-Natriuretic Peptide Total Protein Albumin Vitamin B12 Folate Stool Occult Blood Blood Type Antibody Screen Crossmatch 08/02/23 08/02/23 08/03/23 16:23 20:04 06:25 WBC 6.5 RBC 3.05 L Hgb 8.5 L Hct 28.7 L MCV 94.1 MCH 27.9 MCHC 29.6 L RDW 19.7 H Plt Count 223 MPV 10.2 Immature Gran % (Auto) Neut % (Auto) Lymph % (Auto) [place] % (Auto) Eos % (Auto) Baso % (Auto) Lymph # (Auto) [place] # (Auto) Eos # (Auto) Baso # (Auto) Abs Immat Gran (auto) Absolute Neuts (auto) Absolute Nucleated RBC 0.000 Nucleated RBC % (auto) 0.0 Absolute Retic Percent Retic Immature Retic Fraction Retic Hgb Equivalent Haptoglobin Hold Purple Top PT 16.9 H INR 1.4 H Sodium 143 Potassium 3.1 L Chloride 91 L Carbon Dioxide 43 H* Anion Gap 12 BUN 23 H Creatinine 1.52 H Estim Creat Clear Calc 47.3 Estimated GFR 45 POC Glucose 115 178 H Random Glucose 118 H Calcium 8.3 L Iron TIBC % Saturation Unsat Iron Binding Ferritin Total Bilirubin AST ALT Alkaline Phosphatase Lactate Dehydrogenase Troponin I High Sens B-Natriuretic Peptide Total Protein Albumin Vitamin B12 Folate Stool Occult Blood Blood Type Antibody Screen Crossmatch 08/03/23 08/03/23 08/03/23 07:32 11:28 14:59 WBC RBC Hgb Hct MCV MCH MCHC RDW Plt Count MPV Immature Gran % (Auto) Neut % (Auto) Lymph % (Auto) [place] % (Auto) Eos % (Auto) Baso % (Auto) Lymph # (Auto) [place] # (Auto) Eos # (Auto) Baso # (Auto) Abs Immat Gran (auto) Absolute Neuts (auto) Absolute Nucleated RBC Nucleated RBC % (auto) Absolute Retic Percent Retic Immature Retic Fraction Retic Hgb Equivalent Haptoglobin Hold Purple Top PT INR Sodium Potassium Chloride Carbon Dioxide Anion Gap BUN Creatinine Estim Creat Clear Calc Estimated GFR POC Glucose 128 H 122 H 107 Random Glucose Calcium Iron TIBC % Saturation Unsat Iron Binding Ferritin Total Bilirubin AST ALT Alkaline Phosphatase Lactate Dehydrogenase Troponin I High Sens B-Natriuretic Peptide Total Protein Albumin Vitamin B12 Folate Stool Occult Blood Blood Type Antibody Screen Crossmatch Airway Mallampati Class: II (edentulous) TM Dist: >3cm Neck ROM: Full Loose/Missing/Broken Teeth: Yes and Upper Heart: irreg irregular rhythm Lungs: CTA Assessment and Plan Assessment Anesthesia Assessment: Anesthesia Plan Discussed and Chart Reviewed Final Anesthetic Review History of Problems with Anesthesia: No NPO: Yes ASA Class: IV Final Preanesthetic Review: Meds/Allgs Chart Reviewed, Consent Obtained/R eviewed, Anes Risks/Benef Reviewed and DNR Form (If Appl.) Patient Risk: High Procedure Risk: Intermediate Anesthetic Plan Anesthetic Plan: MAC: Disposition: Standard PACU
--- NOTE | 2023-08-03 15:43 | P.OP_ITS ---
Operative Note Operative Note Date of Service: 08/03/23 Narrative: FLEXIBLE TRANSORAL UPPER GASTROINTESTINAL ENDOSCOPY WITH BIOPSIES AND COLONOSCOPY TILL CECUM WITH SNARE POLYPECTOMY Pre-op diagnosis: acute on chronic anemia Post-op diagnosis: Gastritis, Duodenal nodule/Polyp, GERD, colon polyps, diverticulosis, hemorrhoids? Endoscopist:? Hans Figueroa MD Anesthesia:?MAC UPPER ENDOSCOPY Consent: Indications for the procedure and potential complications of bleeding, perforation, reaction to medications and missed diagnosis were discussed with the patient and informed consent was obtained. Instrument: Olympus GIF H 190 mid size upper endoscope Monitoring: Vital signs and clinical assessment, continuous EKG monitoring, Pulse oximetry, Carbon Dioxide monitoring and blood pressure monitoring were done throughout the procedure. Procedure: The patient was placed in the left lateral decubitis position and pre-procedure medications were administered and a bite block was placed. The endoscope was inserted into the mouth and advanced under direct vision to the third part of duodenum. A careful inspection was made as the upper endoscope was withdrawn including a retroflexed examination of the proximal stomach; Findings and interventions are described below. Findings: Larynx: Normal Esophagus: GE junction at 44 cms. No esophagitis or Hinojosa?s. Stomach: Moderate gastric erythema - biopsies obtained from the antrum to check for H Pylori. Grade 2 flap valve on retroflexed examination of the cardia. Duodenum: Normal bulb and a 1 x 2.5 cms elongated benign appearing nodule in the proximal descending duodenum. Biopsies were obtained. Intervention: Biopsies as noted above Colonoscopy Consent: Indications for the procedure and potential complications of bleeding, perforation, reaction to medications and missed diagnosis were discussed with the patient and informed consent was obtained. Instrument: Olympus CF H 190 L variable stiffness adult colonoscope Monitoring: Vital signs and clinical assessment, intermittent blood pressure monitoring, continuous EKG monitoring, Pulse oximetry and Carbon Dioxide monitoring were done throughout the procedure. Colon withdrawl time was 40 minutes. Procedure: The patient was placed in the left lateral decubitis position and pre-procedure medications were administered. After a digital rectal examination of the ano-rectum, the video colonoscope was inserted into the rectum and advanced through the colon to the cecum. The colonoscope was slowly withdrawn in a retrograde panoramic fashion and the colon mucosa was carefully examined including a retroflexed view of the rectum. Findings and interventions are described below. Procedure Difficulty: Colon was long and tortuous and there was some loop fo rmation Findings: Terminal Ileum: Not evaluated Cecum: Normal Ascending Colon: Moderate diverticulosis throughout the entire colon Transverse Colon: A 2.5 cms sessile polyp with short pedicle in the distal TC at 75 cms. Polyp was removed with a hot snare. Attempts to place a hemoclip at polypectomy site were unsuccessful due to location and excessive spasm Descending Colon: Moderate diverticulosis throughout the entire colon Sigmoid Colon: Severe diverticulosis Rectum: 10 mm sessile ulcerated polyp - removed with a hot snare Anorectum: Moderate nonbleeding internal hemorrhoids. Colon preparation: Good after copious irrigation Impression and Post Procedure Diagnosis: Endoscopy Findings: STOMACH: Moderate gastric erythema - biopsies obtained from the antrum to check for H Pylori. Grade 2 flap valve on retroflexed examination of the cardia. DUODENUM: Normal bulb and a 1 x 2.5 cms elongated benign appearing nodule in the proximal descending duodenum. Biopsies were obtained. Colonoscopy Findings: One small and one large polyps removed. Moderate to severe diverticulosis seen in the entire colon Moderate hemorrhoids on antegrade exam. Plan: Ok to discharge patient in the am on oral iron. Repeat Colonoscopy is not indicated due to multiple comorbidities. Above findings were reviewed with the patient. BIOPSIES SHOWED: A. Small bowel, biopsy: Small bowel mucosa with preserved villous architecture and patchy increase in intraepithelial lymphocytes (see comment) B. Duodenum, nodule, biopsy: Superficial fragments of duodenal mucosa within normal limits; preserved villous architecture and no increase in intraepithelial lymphocytes. C. Stomach, antrum, biopsy: Gastric antral mucosa with mild chronic inactive gastritis and intestinal metaplasia (incomplete); negative for Helicobacter pylori and dysplasia. D. Colon, transverse, polypectomy: Tubular adenoma, multiple fragments; negative for high-grade dysplasia. E. Rectum, polypectomy: Tubular adenoma (1); negative for high-grade dysplasia; hyperplastic polyp (1). COMMENT (A): These findings raise the possibility of celiac disease; however other pathologic processes, including H. pylori gastritis, peptic duodenitis, food allergies other than celiac disease, tropical sprue, viral enteritis, injury caused by drugs, autoimmune enteropathy, immunodeficiencies and Crohn's disease can induce intraepithelial lymphocytosis with or without associated architectural changes. In many cases no definite cause is identified. Clinical and serological correlation is matilde mmended
[2023-08-03 18:17] LABS: Glucose, Whole Blood 94 mg/dL (60-115)
[2023-08-03 20:18] LABS: Glucose, Whole Blood 134 mg/dL (60-115)
[2023-08-03] MEDS: Pravastatin Sodium 80 MG TABLET PO (20:28)
[2023-08-04] VITALS: BP 109/55; PULSE 76; RESP 18; TEMP 36.4; O2SAT 92
[2023-08-04 03:46] VITALS: BP 116/59; PULSE 71; RESP 18; TEMP 36.3; O2SAT 100
[2023-08-04 07:50] VITALS: BP 129/62; PULSE 64; RESP 20; TEMP 36.9; O2SAT 96
[2023-08-04 07:52] LABS: Hematocrit 29.9 % (42.0-52.0); Hemoglobin 8.8 g/dl (14.0-18.0); Mean Corpuscular HGB Conc 29.4 g/dl (31.0-36.0); Mean Corpuscular Hemoglobin 28.2 pg (27.0-33.0); Mean Corpuscular Volume 95.8 fL (80.0-98.0); Mean Platelet Volume 9.8 fL (9.4-12.4); Platelet Count 221 X10*3/uL (160-400); Red Blood Count 3.12 X10*6/uL (4.60-5.80); Red Cell Distribution Width 19.8 % (11.0-16.0); White Blood Count 5.2 X10*3/uL (4.8-10.8)
[2023-08-04 07:57] LABS: INTERNATIONAL NORM RATIO 1.3 (0.9-1.1); Prothrombin Time 16.4 SEC (11.1-13.3)
[2023-08-04 07:59] LABS: Glucose, Whole Blood 102 mg/dL (60-115)
[2023-08-04] MEDS: Tiotropium Bromide 2.5 mcg 1 PUFF/2.5 MCG MIST.INHAL 2 PUFF INHALE (07:59)
[2023-08-04] MEDS: Fluticasone/Vilanterol 100/25 BLST.W.DEV 1 PUFF INHALE (07:59)
[2023-08-04 08:02] VITALS: PULSE 89; RESP 20; O2SAT 97
[2023-08-04] MEDS: Ezetimibe 10 MG TABLET PO (08:44)
[2023-08-04] MEDS: Ascorbic Acid 500 MG TABLET PO (08:44)
[2023-08-04] MEDS: acetaZOLAMIDE 250 MG TABLET PO (08:44)
[2023-08-04] MEDS: 0.9 % Sodium Chloride Flush 3 ML SYRINGE IVFLUSH (08:44)
[2023-08-04] MEDS: Cyanocobalamin (Vitamin B-12) 1,000 MCG TABLET 1000 MCG PO (08:44)
[2023-08-04] MEDS: Ferrous Sulfate 324 MG TABLET.DR PO (08:44)
[2023-08-04 09:44] LABS: Anion Gap 11 (12-20); Blood Urea Nitrogen 23 mg/dL (9-16); Calcium 8.6 mg/dL (8.4-10.2); Chloride 94 mmol/L (96-108); Creatinine Clr Calc Pharmacy 45.2; Estimated Glomerular Filt Rate 43; Glucose Random 100 mg/dL (60-115); Potassium 3.4 mmol/L (3.3-5.1); Sodium 143 mmol/L (135-145)
--- NOTE | 2023-08-04 09:44 | P.PNNP_ITS ---
Subjective Subjective Date of Service: 08/04/23 Interval history: Events noted. Feels better. Anxious to go home. Status post endoscopy. Physical Exam 2 Vital Signs: Vital Signs: Last Vital Signs Temp 98.4 F 08/04/23 07:50 Pulse 89 08/04/23 08:02 Resp 20 08/04/23 08:02 BP 129/62 08/04/23 07:50 Pulse Ox 96 08/04/23 07:50 O2 Del Method Nasal Cannula 08/04/23 07:50 O2 Flow Rate 3 08/04/23 07:50 Oxygen Flow Rate 2 07/30/23 10:41 BMI result Body Mass Index 31.4 Const: General: cooperative, comfortable, no acute distress, alert and awake Nutritional Appearance: average body habitus Orientation/consciousness: p atient oriented x3 Limitations: No language barrier HEENT: Other: Unremarkable Head: Yes normal to inspection Neck: Neck: Yes normal visual inspection Chest: Chest palpation & inspection: normal inspection of the chest Resp: Other: diminished, no rales, wheezes or rhonchi Effort & Inspection: normal respiratory effort, able to speak in complete sentences, no respiratory distress and no use of accessory muscles A uscultation: clear to auscultation bilaterally Cardio: Jugular venous distension: JVD Palpation: normal PMI Rate: r egular rate Heart sounds: S1 normal heart sound present, S2 normal heart sound present, no gallops, no murmurs and no rubs GI: Inspection: No distended Palpation (GI): Soft to palpation and nontender Back/Spine/Pelvis: Other: unremarkable Skin: General skin exam: no rashes or lesions noted Neuro: General: patient oriented x3, moves all extremities and CN's II-XI intact bilaterally Extrem: Other: b/l lower extremity venous stasis changes, nonpitting edema General: Yes normal to inspection Psych: Mental Status: mental status grossly normal Objective Data Labs 08/04/23 07:28 08/03/23 06:25 Labs: Laboratory Results - last 24 hr 08/03/23 08/03/23 08/03/23 11:28 14:59 18:13 WBC RBC Hgb Hct MCV MCH MCHC RDW Plt Count MPV Absolute Nucleated RBC Nucleated RBC % (auto) PT INR POC Glucose 122 H 107 94 08/03/23 08/04/23 08/04/23 19:42 07:28 07:54 WBC 5.2 RBC 3.12 L Hgb 8.8 L Hct 29.9 L MCV 95.8 MCH 28.2 MCHC 29.4 L RDW 19.8 H Plt Count 221 MPV 9.8 Absolute Nucleated RBC 0.000 Nucleated RBC % (auto) 0.0 PT 16.4 H INR 1.3 H POC Glucose 134 H 102 Procedures Date of Service Date of Service: 08/04/23 Assessment & Plan Assessment and plan (1) Chronic heart failure with preserved ejection fraction (HFpEF): Status: Acute (2) Anemia: Status: Acute (3) CKD (chronic kidney disease): Status: Acute Plan Elderly man with CKD Renal function is close to baseline of 1.5 Continue to avoid nephrotoxins Optimize BP Anemia Multifactorai GI bleed Await EPO levels s/p EGD Volume status acceptable Continue with current diruetic regimen for now Time Spent With Patient Time: Total time managing care of this patient today ____ minutes. Progress Note: Quality Stroke Does the patient have a stroke diagnosis?: No
[2023-08-04 09:48] LABS: Carbon Dioxide 41 mmol/L (22-29)
--- NOTE | 2023-08-04 10:31 | PM.DS ---
DS: Providers Provider Date of Service: 08/04/23 Date of admission: 07/30/23 15:44 Primary care physician: Grayson Berrios DO, MD Consults: 07/30/23 15:54 Consult to Gastroenterology Routine Consulting Provider: Hans Figueroa Reason for consultation: anemia, heme + stool Has provider been notified: No 08/01/23 10:45 Consult to Cardiology Routine Consulting Provider: [facility] Reason for consultation: cardiac risk stratification for EGD and colo 08/03/23 08:08 Consult to Nephrology Routine Consulting Provider: [facility] Reason for consultation: ckd, metabolic alkalosis DS: Diagnosis Discharge Diagnosis (1) Chronic heart failure with preserved ejection fraction (HFpEF): Status: Acute (2) Anemia: Status: Acute (3) CKD (chronic kidney disease): Status: Acute DS: Summary Hospital Course Hospital Course: History and physical as per admitting provider. This is a 72-year-old male with history of heart failure with preserved ejection fraction, pulmonary hypertension, hypertension, CKD stage 3, COPD with chronic hypoxemic respiratory failure on 2 L supplemental O2 at baseline, [id number] type 2 diabetes, chronic atrial fibrillation anticoagulated with Coumadin and on digoxin, hyperlipidemia, venous insufficiency, and chronic anemia who was sent to the ED due to abnormal labs. He was seen in his PCP's office and had outpatient routine labs drawn yesterday. He was called this morning and requested to come to the emergency department due to anemia. Patient reports increasing dyspnea on exertion from his baseline. He denies any hematuria, blood in his stool. NSAIDs or drink alcohol. In the emergency department his INR was noted to be elevated at 4.9, was noted to have heme-positive stools. He reports a history of anemia and does follow with a registered nurse step down in [place], he has had a bone marrow examination recently but he is unsure what the results were. He has had both an endoscopy and colonoscopy multiple years ago which reportedly normal. Sent and treated for acute on chronic microcytic anemia, symptomatic. He also has a history of chronic kidney disease, low iron. He had heme-positive stools without overt bleeding. He had a total 4 units packed red blood cells with stabilization of H&H. He is status post EGD colonoscopy 08/03/2023 with findings of 2 gastric polyps that were removed, esophagitis and biopsies taken. Plan is for patient to resume his warfarin on 08/09/2023 and continue iron supplementation. Patient will be discharged home with family, he is hemodynamically stable at this time. Heart failure with preserved ejection fraction. Did have IV Lasix after blood transfusion to avoid fluid overload. During the hospitalization his creatinine did trend up and is torsemide and metolazone was held but he is now at baseline and may continue these medications at home. CKD stage 3. At baseline Chronic atrial fibrillation. Rate controlled during hospitalization. On digoxin. Warfarin was held due to anemia, may resume on 08/09/2023 COPD. On 2 L of oxygen at baseline. No exacerbation during hospitalization May continue home inhalers Diabetes mellitus type 2. Continue metformin Hyperlipidemia. Continue statin Time Attestation Discharge Coordination Time: discharge time of ____ minutes Quality: Safe Use of Opioids Does Pt have an Active Cancer Diagnosis on the Problem List?: No Quality: Stroke Does the patient have a stroke diagnosis?: No Physical Exam Vital Signs: Vital Signs: Last Vital Signs Temp 98.4 F 08/04/23 07:50 Pulse 89 08/04/23 08:02 Resp 20 08/04/23 08:02 BP 129/62 08/04/23 07:50 Pulse Ox 96 08/04/23 07:50 O2 Del Method Nasal Cannula 08/04/23 07:50 O2 Flow Rate 3 08/04/23 07:50 Oxygen Flow Rate 2 07/30/23 10:41 BMI result Body Mass Index 31.4 Appearing in no acute distress head is normocephalic atraumatic eyes pupils are PERRLA sclera is anicteric mouth throat mucous membranes are intact and moist neck is supple no lymphadenopathy, no JVD noted lung sounds are clear to auscultation heart regular rate rhythm, clear S1, S2 positive bowel sounds, abdomen is soft, nontender neuro patient is alert x3, no focal deficits DS: Data Data Completed and Pending Completed studies during hospitalization [Text1]: Procedures Transfusion of Nonautologous Red Blood Cells into Peripheral Vein, Percutaneous Approach (04/21/23) Pending studies at discharge: Pending at discharge 08/03/23 16:35 Surgical [PTH] Routine Labs on day of discharge: Laboratory Results - last 24 hr 08/03/23 08/03/23 08/03/23 11:28 14:59 18:13 WBC RBC Hgb Hct MCV MCH MCHC RDW Plt Count MPV Absolute Nucleated RBC Nucleated RBC % (auto) PT INR Sodium Potassium Chloride Carbon Dioxide Anion Gap BUN Creatinine Estim Creat Clear Calc Estimated GFR POC Glucose 122 H 107 94 Random Glucose Calcium 08/03/23 08/04/23 08/04/23 19:42 07:28 07:54 WBC 5.2 RBC 3.12 L Hgb 8.8 L Hct 29.9 L MCV 95.8 MCH 28.2 MCHC 29.4 L RDW 19.8 H Plt Count 221 MPV 9.8 Absolute Nucleated RBC 0.000 Nucleated RBC % (auto) 0.0 PT 16.4 H INR 1.3 H Sodium 143 Potassium 3.4 Chloride 94 L Carbon Dioxide 41 H* Anion Gap 11 L BUN 23 H Creatinine 1.59 H Estim Creat Clear Calc 45.2 Estimated GFR 43 POC Glucose 134 H 102 Random Glucose 100 Calcium 8.6 Discharge Plan Discharge Anticipated Discharge Date/Time: 08/04/23 09:59 Patient Disposition: Home, Self-Care Discharge Diagnosis: Acute on chronic macrocytic anemia Gastritis Gastric polyps Referrals: Grayson Berrios DO, MD [Primary Care Provider] - 1 Week Discharge Medications: Continued torsemide 20 mg tablet 40 mg PO BID 30 Days Qty: 120 5RF metolazone 2.5 mg tablet 2.5 mg PO DAILY Qty: 30 0RF Rx Instructions: Take 1 tablet as directed by Dr. Bird for lower leg swelling. cyanocobalamin (vitamin B-12) 1,000 mcg Tablet 1,000 mcg PO DAILY fluticasone furoate-vilanterol [Breo Ellipta] 100-25 mcg/dose Blister With Device 1 inh INHALATION DAILY pravastatin 80 mg tablet 80 mg PO BEDTIME digoxin 125 mcg (0.125 mg) tablet 125 mcg PO SUTUTHSA@2100 tiotropium bromide 18 mcg capsule, w/inhalation device 18 mcg PO DAILY ferrous sulfate 325 mg (65 mg iron) tablet 325 mg PO DAILY metformin 500 mg tablet 500 mg PO BIDWM ezetimibe 10 mg tablet 10 mg PO DAILY ascorbic acid (vitamin C) 500 mg tablet 500 mg PO DAILY albuterol sulfate 90 mcg/actuation HFA aerosol inhaler 1 inh inhalation QID PRN (Reason: shortness of breath or wheezing) Held warfarin 2.5 mg tablet 2.5 mg PO MO Hold Instructions: Resume on 08/09/23. Protocol: Dose Management Condition: Thursday ( One) Dose/Route: 5 mg Instruction: 1 x 5 mg tablet Condition: Thursday Dose/Route: 2.5 mg Instruction: 1 x 2.5 mg tablet Condition: Thursday Dose/Route: 5 mg Instruction: 1 x 5 mg tablet Condition: Thursday Dose/Route: 0 mg Instruction: 0 tablets Condition: Dose/Route: 2.5 mg Instruction: 1 x 2.5 mg tablet Condition: Thursday Dose/Route: 2.5 mg Instruction: 1 x 2.5 mg tablet Condition: Thursday Dose/Route: 5 mg Instruction: 1 x 5 mg tablet Condition: Thursday () Dose/Route: 5 mg Instruction: 1 x 5 mg tablet Condition: Thursday Dose/Route: 2.5 mg Instruction: 1 x 2.5 mg tablet Condition: Thursday Dose/Route: 5 mg Instruction: 1 x 5 mg tablet Condition: Thursday Dose/Route: 5 mg Instruction: 1 x 5 mg tablet Condition: Dose/Route: 2.5 mg Instruction: 1 x 2.5 mg tablet Condition: Thursday Dose/Route: 5 mg Instruction: 1 x 5 mg tablet Condition: Thursday Dose/Route: 5 mg Instruction: 1 x 5 mg tablet Protocol Text: Adjustment Start Date: Thursday07/24/23 INR Value: 3.2 INR Date: 07/24/23 Recheck Date: 07/31/23 warfarin 5 mg tablet 5 mg PO SUTUWETHFRSA Hold Instructions: Resume on 08/09/23. Protocol: Dose Management Condition: Thursday ( One) Dose/Route: 5 mg Instruction: 1 x 5 mg tablet Condition: Thursday Dose/Route: 2.5 mg Instruction: 1 x 2.5 mg tablet Condition: Thursday Dose/Route: 5 mg Instruction: 1 x 5 mg tablet Condition: Thursday Dose/Route: 0 mg Instruction: 0 tablets Condition: Dose/Route: 2.5 mg Instruction: 1 x 2.5 mg tablet Condition: Thursday Dose/Route: 2.5 mg Instruction: 1 x 2.5 mg tablet Condition: Thursday Dose/Route: 5 mg Instruction: 1 x 5 mg tablet Condition: Thursday ( Two) Dose/Route: 5 mg Instruction: 1 x 5 mg tablet Condition: Thursday Dose/Route: 2.5 mg Instruction: 1 x 2.5 mg tablet Condition: Thursday Dose/Route: 5 mg Instruction: 1 x 5 mg tablet Condition: Thursday Dose/Route: 5 mg Instruction: 1 x 5 mg tablet Condition: Dose/Route: 2.5 mg Instruction: 1 x 2.5 mg tablet Condition: Thursday Dose/Route: 5 mg Instruction: 1 x 5 mg tablet Condition: Thursday Dose/Route: 5 mg Instruction: 1 x 5 mg tablet Protocol Text: Adjustment Start Date: Thursday07/24/23 INR Value: 3.2 INR Date: 07/24/23 Recheck Date: 07/31/23 Discharge Orders: Discharge Order (Routine); Ordered 08/04/23 Ordered By: Jen Diaz Diet: Advance to usual diet Activity on Discharge: As tolerated Stand Alone Forms: Patient Portal Discharge page Care Plan Goals: May restart warfarin on 08/09/2023 You have been started on an iron supplementation Health Concerns: Acute on chronic macrocytic anemia Gastritis Gastric polyps Plan of Treatment: Follow-up with primary care provider as needed Follow-up with Gastroenterology as needed Take all medications as prescribed Assessment: See discharge summary
--- NOTE | 2023-08-04 11:03 | MHC.CM.PN ---
Addendum entered by Kendal Hooks 08/04/23 11:03: Second IMM given 08/03. Original Note: Pt is medically cleared for D/C home self-care, pts daughter is transporting him home.
[2023-08-04 11:09] VITALS: O2SAT 96
[2023-08-04 11:21] VITALS: BP 117/56; PULSE 66; RESP 19; TEMP 37.3; O2SAT 96
--- NOTE | 2023-08-04 11:33 | HO.POSTANES ---
Post Anesthesia Evaluation Post Anesthesia Evaluation Date of Service: 08/04/23 Vital Signs: Vital Signs Temp Pulse Resp BP Pulse Ox O2 Del Method O2 Flow Rate 08/04/23 11:21 99.2 F 66 19 117/56 L 96 Nasal Cannula 3 08/04/23 08:02 89 20 08/04/23 07:50 98.4 F 64 20 129/62 96 Nasal Cannula 3 08/04/23 03:46 97.3 F 71 18 116/59 L 100 Nasal Cannula 3 08/04/23 00:00 97.6 F 76 18 109/55 L 92 Nasal Cannula 3 Anesthesia: Monitored Mental Status: Awake Pain Control: Satisfactory Nausea/Vomiting: None Hydration: Adequate Anesthesia-Related Issues: No Anes. Related Issues
[2023-08-04] MEDS: Insulin Lispro 100 UNIT/ML 3 ML VIAL SUBCUT (12:20)
[2023-08-04 12:30] LABS: Glucose, Whole Blood 172 mg/dL (60-115)
[2023-08-04 16:04] LABS: Glucose, Whole Blood 122 mg/dL (60-115)
[2023-08-05 11:08] LABS: Erythropoietin (EPO) 30.5 mIU/mL (2.6-18.5)
== END 2023-08-04 16:37 | disposition home or self-care (01) | DRG 378 ==
LOC: HO.ED 13:55 → HO.EDOVER 15:57 → HO.IMC 19:55
PROVIDERS: Internal Medicine Gastroenterology; Internal Medicine Hypertension Specialist; Registered Nurse Emergency; Admitting Provider Physician Assistant Medical; Emergency Provider Emergency Medicine; PCP Internal Medicine; Visit Provider Nurse Practitioner Acute Care
PROC: 0DB98ZX Excision of Duodenum, Via Natural or Artificial Opening Endoscopic, Diagnostic (ICD-10-PCS; principal; 2023-08-03 15:30)
DX: K57.31 Diverticulosis of large intestine without perforation or abscess with bleeding (principal); I13.0 Hypertensive heart and chronic kidney disease with heart failure and stage 1 through stage 4 chronic kidney disease, or unspecified chronic kidney disease; I50.32 Chronic diastolic (congestive) heart failure; J96.11 Chronic respiratory failure with hypoxia; I48.20 Chronic atrial fibrillation, unspecified; K31.89 Other diseases of stomach and duodenum; E11.22 Type 2 diabetes mellitus with diabetic chronic kidney disease; K62.1 Rectal polyp; E78.5 Hyperlipidemia, unspecified; D50.9 Iron deficiency anemia, unspecified; I27.20 Pulmonary hypertension, unspecified; J44.9 Chronic obstructive pulmonary disease, unspecified; K64.8 Other hemorrhoids; N18.30 Chronic kidney disease, stage 3 unspecified; R79.1 Abnormal coagulation profile; D63.1 Anemia in chronic kidney disease; Z90.5 Acquired absence of kidney; Z85.528 Personal history of other malignant neoplasm of kidney; Z99.81 Dependence on supplemental oxygen; Z87.891 Personal history of nicotine dependence; Z79.01 Long term (current) 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; Z79.51 Long term (current) use of inhaled steroids; Z79.84 Long term (current) use of oral hypoglycemic drugs; Z79.899 Other long term (current) drug therapy
CPT/HCPCS: 36415; 71046; 80048; 80053; 82272; 82607; 82668; 82728; 82746; 82947; 83010; 83540; 83615; 83880; 84484; 85014; 85018; 85025; 85027; 85045; 85610; 86850; 86900; 86901; 86923; 88305; 88313; 88342; 93005; 94640; 99285; J1940; J2371; J2704; P9016

== ENCOUNTER → 2023-07-30 11:06 | Outpatient (BNV) | payer MEDICARE, SELFPAY | PROVIDERS: Emergency Provider Emergency Medicine; PCP Internal Medicine; Visit Provider Internal Medicine | DX: I48.91 Unspecified atrial fibrillation (principal) | CPT/HCPCS: 93010 ==

== ENCOUNTER → 2023-07-30 15:44 | Outpatient (BNV) | payer MEDICARE, SELFPAY | PROVIDERS: Admitting Provider Physician Assistant Medical; Emergency Provider Emergency Medicine; PCP Internal Medicine; Visit Provider Internal Medicine Hypertension Specialist | DX: I50.32 Chronic diastolic (congestive) heart failure (principal); N18.9 Chronic kidney disease, unspecified; D63.1 Anemia in chronic kidney disease | CPT/HCPCS: 99223; 99232 ==

== ENCOUNTER → 2023-07-30 15:44 | Outpatient (BNV) | payer MEDICARE, SELFPAY | PROVIDERS: Admitting Provider Physician Assistant Medical; Emergency Provider Emergency Medicine; PCP Internal Medicine; Visit Provider Physician Assistant Medical | DX: I50.32 Chronic diastolic (congestive) heart failure (principal); N18.9 Chronic kidney disease, unspecified; D63.1 Anemia in chronic kidney disease | CPT/HCPCS: 99223; 99232; 99238 ==

== ENCOUNTER → 2023-07-30 15:44 | Outpatient (BNV) | payer MEDICARE, SELFPAY | PROVIDERS: Admitting Provider Physician Assistant Medical; Emergency Provider Emergency Medicine; PCP Internal Medicine; Visit Provider Internal Medicine | DX: Z01.810 Encounter for preprocedural cardiovascular examination (principal); I50.32 Chronic diastolic (congestive) heart failure; I48.20 Chronic atrial fibrillation, unspecified | CPT/HCPCS: 99223 ==

== ENCOUNTER → 2023-07-30 15:44 | Outpatient (BNV) | payer MEDICARE, SELFPAY | PROVIDERS: Admitting Provider Physician Assistant Medical; Emergency Provider Emergency Medicine; PCP Internal Medicine; Visit Provider Internal Medicine Gastroenterology | DX: D64.9 Anemia, unspecified (principal); R19.5 Other fecal abnormalities; K31.7 Polyp of stomach and duodenum; K63.5 Polyp of colon; K57.90 Diverticulosis of intestine, part unspecified, without perforation or abscess without bleeding; K64.8 Other hemorrhoids | CPT/HCPCS: 43239; 45385; 99222 ==

== ENCOUNTER 2023-08-14 10:54 | Outpatient (AMB) | payer MEDICARE, SELFPAY ==
--- NOTE | 2023-08-14 11:09 | MHC.OFFVISCO ---
Intake Intake Visit Reasons: Anticoagulation Allergies No Known Allergies Allergy (Verified 08/14/23 10:58) Medication List - Last Reconciled 08/14/23 by Breanna Jose RN albuterol sulfate 90 mcg/actuation 1 inh inhalation QID PRN ascorbic acid (vitamin C) 500 mg PO DAILY cyanocobalamin (vitamin B-12) 1,000 mcg PO DAILY digoxin 125 mcg PO SUTUTHSA@2100 ezetimibe 10 mg PO DAILY ferrous sulfate 325 mg PO DAILY fluticasone furoate-vilanterol 100-25 mcg/dose (Breo Ellipta) 1 inh inhalation DAILY metformin 500 mg PO BIDWM metolazone 2.5 mg PO DAILY pravastatin 80 mg PO BEDTIME tiotropium bromide 18 mcg PO DAILY torsemide 40 mg (2 x 20 mg) PO BID 30 days warfarin 2.5 mg See Protocol PO MO warfarin 5 mg See Protocol PO SUTUWETHFRSA Nursing Note INR 1.5-? out of therapeutic range of 2-3 Medications and supplements reviewed Patient status: pt states recent hosp for fluid retention/heart failure, anemia and ckd per d/c summary- pt had heme positive stools, had EGD colonoscopy on 08/03/23 with 2 gastric polyps removed and esophagitis with biopsies taken. pt was transfused while in the hospital - 4 units prbc pt states restarted warfarin on thursday at usual dosing Medications or supplements: metolazone- no interaction with warfarin per micromedex Diet: appetite good Denies any signs and symptoms of bleeding or clotting or unusual bruising Bleeding, bruising, clotting discussed Nutritional guidance given: no greens for several days, eat reds to raise Dose: 7.5mg today then cont 5mg x 5, 2.5mg x 2 F/U INR Date : pt req thu next week? Patient verbalizing understanding of instructions given. pt on cont oxygen, denies le edema present for visit pt states had f/u with dr dacosta for anemia t/c placed to pcp dr carmona's office to report low inr/dosing and f/u appt. 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
[2023-08-14 11:10] LABS: Prothrombin Time Whole Bld POC 17.5 sec (11.1-13.5); ~PT, ~INR - Anti Coag Clinic 1.5 (0.9-1.1)
== END 2023-08-14 11:39 | disposition home or self-care (01) ==
LOC: HO.ACS 10:54
PROVIDERS: PCP Internal Medicine; Visit Provider Internal Medicine
DX: Z79.01 Long term (current) 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 (principal)

== ENCOUNTER → 2023-08-14 10:54 | Outpatient (BNVA) | payer MEDICARE, SELFPAY | PROVIDERS: PCP Internal Medicine; Visit Provider Internal Medicine | DX: I48.20 Chronic atrial fibrillation, unspecified (principal); Z79.01 Long term (current) 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; Z51.81 Encounter for therapeutic drug level monitoring | CPT/HCPCS: 85610; 99212 ==

== ENCOUNTER 2023-08-17 09:44 | Outpatient (AMB) | payer MEDICARE, SELFPAY ==
[2023-08-17 09:56] VITALS: BP 112/62; PULSE 64; BMI 29.5
--- NOTE | 2023-08-17 09:56 | MHC.OFFVIS ---
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: No Allergies No Known Allergies Allergy (Verified 08/14/23 10:58) Medication List - Last Reconciled 08/17/23 by Mateo Bird MD albuterol sulfate 90 mcg/actuation 3 inhalations inhalation QID PRN ascorbic acid (vitamin C) 500 mg PO DAILY cyanocobalamin (vitamin B-12) 1,000 mcg PO DAILY digoxin 125 mcg PO SUTUTHSA@2100 ezetimibe 10 mg PO DAILY ferrous sulfate 325 mg PO DAILY fluticasone furoate-vilanterol 100-25 mcg/dose (Breo Ellipta) 1 inh inhalation DAILY metformin 500 mg PO BIDWM metolazone 2.5 mg PO DAILY pravastatin 80 mg PO BEDTIME tiotropium bromide 18 mcg PO DAILY torsemide 40 mg (2 x 20 mg) PO BID 30 days warfarin 2.5 mg See Protocol PO MO warfarin 5 mg See Protocol PO SUTUWETHFRSA HPI HPI Comments History of Present Illness Details Deny comes for follow-up. He said he has been doing extremely well on daily metolazone therapy which is what requires to maintain his decongestion. His leg edema significantly improved. His breathing is significantly improved and he was able to walk to the office without any restriction. Does get short of breath with exertion. He said he also does not have significant orthopnea although he sleeps in a recliner. No palpitations. He follows regularly with Hematology at [facility] for anemia and has been advised to get transfusions if he is anemic and have his blood checked once a month. He denies any overt bleeding issues. Denies any lightheadedness, syncope. [facility] Medical History Macrocytic anemia Partial small bowel obstruction Anemia CHF (congestive heart failure) Diabetes mellitus CKD (chronic kidney disease) HTN (hypertension) Biatrial enlargement Pulmonary hypertension Chronic heart failure with preserved ejection fraction (HFpEF) HLD (hyperlipidemia) Chronic a-fib Current use of anticoagulant therapy Surgical History Hx of total hip arthroplasty Hx of colonoscopy Hx of esophagogastroduodenoscopy History of nephrectomy Hx of hernia repair Family History Father Cancer Mother No problems noted. Social History Household Members: Spouse Housing: House Do you presently have visiting nurse or other home services: No Comment: refused bed alarm Patient Tobacco Use Status: Former Tobacco user Quit Date: 13 yrs ago Second Hand Smoke Exposure: No Advance Directives Date on File: 06/01/00 service: No Review of Systems Const Denies chills, Denies fatigue, Denies fever(s), Denies frequent falls, Denies weakness, Denies weight gain and Denies weight loss ENT Denies dizziness Card Denies chest pain, Denies leg edema, Denies lightheadedness, Denies palpitations, Denies dyspnea, Denies dyspnea on exertion, Denies orthopnea and Denies other (loss of consciousness) Resp Denies cough, Denies dyspnea and Denies dyspnea on exertion GI Denies hematochezia and Denies change in stool character Musc Denies abnormal gait, Denies muscle weakness, Denies numbness, Denies radiating pain into limb and Denies tingling Neuro Denies abnormal gait, Denies dizziness, Denies frequent falls, Denies numbness, Denies tingling and Denies weakness Endo Denies fatigue and Denies palpitations Physical Exam Vital Signs: Last Vital Signs Pulse 64 08/17/23 09:56 BP 112/62 08/17/23 09:56 BMI result Body Mass Index 29.5 Const Other: wearing O2 with nasal cannula General: cooperative, comfortable and no acute distress Orientation/consciousness: patient oriented x3 Neck Neck: Yes normal visual inspection Resp Effort & Inspection: normal respiratory effort Auscultation: rales (each lateral base), no rhonchi and no wheezes Cardio Jugular venous distension: no JVD Rate: regular rate Rhythm: abnormal rhythm Heart sounds: S1 normal heart sound present, S2 normal heart sound present, no murmurs and no rubs GI Inspection: Yes normal to inspection Neuro General: patient oriented x3 Extrem Other: edema in lower legs, R>L, mid calf down to feet Psych Appearance: grossly normal Mental Status: mental status grossly normal Speech and movement: Normal speech and movement present Assessment & Plan Assessment & Plan (1) Chronic heart failure with preserved ejection fraction (HFpEF): Code(s): I50.32 - Chronic diastolic (congestive) heart failure Plan: Patient with advanced heart failure preserved ejection fraction with preserved LV ejection fraction but significant right-sided finding with right heart failure syndrome. Clinically doing extremely well on current daily metolazone therapy with high dose torsemide. Importance of daily weight monitoring avoidance of salt loading was discussed. If he develops further symptoms of congestion is advised to increase his metolazone daily basis. I would recommend him to have a monthly check on his basic metabolic profile to evaluate for potassium as well as creatinine. Follow-up with nephrology as need be. Remains at high risk for recurrent hospitalization including also progressive renal disease. Try to maintain his hematocrit over 30, if he develops any significant bleeding issues or anemia consider transfusion. Continue iron replacement therapy. (2) Chronic a-fib: Code(s): I48.20 - Chronic atrial fibrillation, unspecified Plan: Chronic rate control atrial fibrillation. Continue current rate control strategy. Digoxin assay should be done on a monthly basis as well. Continue full oral anticoagulation, currently on warfarin therapy. Target INR between 2 and 3. If continues to have recurrent bleeding issues and significant anemia may be a candidate for Watchman device. (3) Enlarged thoracic aorta: Code(s): I77.89 - Other specified disorders of arteries and arterioles Plan: Enlarged thoracic aorta without any worsening. Continue monitor clinically. Continue lipid modification with target goal LDL less than 70 mg/dL. Continue aggressive management diabetes. Blood pressure is currently well optimized. Will follow up in the clinic in 6 weeks time, sooner p.r.n.. Thank you for allowing me to partake in his care Orders: Orders Basic Metabolic Panel Today I50.32 - Chronic diastolic (congestive) heart failure Basic Metabolic Panel 6 Weeks I50.32 - Chronic diastolic (congestive) heart failure B Type Natriuretic Peptide Today I50.32 - Chronic diastolic (congestive) heart failure Coding Level of Care Code Est Pt Level 4 (96329) Diagnoses Chronic heart failure with preserved ejection fraction (HFpEF) I50.32 Chronic a-fib I48.20 Enlarged thoracic aorta I77.89
== END 2023-08-17 10:42 | disposition home or self-care (01) ==
PROVIDERS: PCP Internal Medicine; Visit Provider Internal Medicine Cardiovascular Disease
DX: I50.32 Chronic diastolic (congestive) heart failure (principal); I48.20 Chronic atrial fibrillation, unspecified; I77.89 Other specified disorders of arteries and arterioles
CPT/HCPCS: 99214

== ENCOUNTER 2023-08-17 09:44 | Outpatient (REF) | payer MEDICARE, SELFPAY ==
[2023-08-17 12:10] LABS: Digoxin 0.7 ng/mL (0.8-2.0)
[2023-08-17 12:13] LABS: B Type Natriuretic Peptide 45 pg/mL (<100)
[2023-08-17 12:27] LABS: Blood Urea Nitrogen 48 mg/dL (9-16); Calcium 9.4 mg/dL (8.4-10.2); Estimated Glomerular Filt Rate 33; Glucose Random 196 mg/dL (60-115)
[2023-08-17 12:34] LABS: Anion Gap 16 (12-20); Carbon Dioxide 37 mmol/L (22-29); Chloride 90 mmol/L (96-108); Potassium 3.2 mmol/L (3.3-5.1); Sodium 140 mmol/L (135-145)
== END 2023-08-17 09:45 | disposition home or self-care (01) ==
LOC: HO.LAB 09:44
PROVIDERS: PCP Internal Medicine; Visit Provider Internal Medicine Cardiovascular Disease
DX: I48.20 Chronic atrial fibrillation, unspecified (principal); I50.32 Chronic diastolic (congestive) heart failure; Z79.899 Other long term (current) drug therapy
CPT/HCPCS: 36415; 80048; 80162; 83880; 99212

== ENCOUNTER 2023-08-19 10:48 | Outpatient (AMB) | payer MEDICARE, SELFPAY ==
--- NOTE | 2023-08-19 11:10 | MHC.OFFVISCO ---
Intake Intake Visit Reasons: Anticoagulation Allergies No Known Allergies Allergy (Verified 08/19/23 11:06) Medication List - Last Reconciled 08/19/23 by Breanna Jose RN albuterol sulfate 90 mcg/actuation 3 inhalations inhalation QID PRN ascorbic acid (vitamin C) 500 mg PO DAILY cyanocobalamin (vitamin B-12) 1,000 mcg PO DAILY digoxin 125 mcg PO SUTUTHSA@2100 ezetimibe 10 mg PO DAILY ferrous sulfate 325 mg PO DAILY fluticasone furoate-vilanterol 100-25 mcg/dose (Breo Ellipta) 1 inh inhalation DAILY metformin 500 mg PO BIDWM metolazone 2.5 mg PO DAILY omeprazole 40 mg PO DAILY potassium chloride ER 20 mEq PO DAILY pravastatin 80 mg PO BEDTIME tiotropium bromide 18 mcg PO DAILY torsemide 40 mg (2 x 20 mg) PO BID 30 days warfarin 2.5 mg See Protocol PO MO warfarin 5 mg See Protocol PO SUTUWETHFRSA Nursing Note INR 1.8-? out of therapeutic range of 2-3 Medications and supplements reviewed Patient status: pt states feeling well, no c.o pt recent c admit- anemia, chf, ckd Medications or supplements: no changes Diet: appetite is good Denies any signs and symptoms of bleeding or clotting or unusual bruising Bleeding, bruising, clotting discussed Nutritional guidance given: no greens for 2-3 days, eat a red today Dose: 5mg today and tomm then cont 5mg x 5, 2.5mg x 2 F/U INR Date :1 week? Patient and spouse verbalizing understanding of instructions given. Anti-Coag Initial Assessment Social Hx Patient Tobacco Use Status: Former Tobacco user Quit Date: 13 yrs ago Alcohol intake frequency: former alcohol drinker Coding Level of Care Code Est Patient Level 1 Diagnoses Current use of anticoagulant therapy Z79.01 Assessment & Plan Assessment & Plan (1) Current use of anticoagulant therapy: Code(s): Z79.01 - alf (current) 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
[2023-08-19 11:12] LABS: Prothrombin Time Whole Bld POC 22.1 sec (11.1-13.5); ~PT, ~INR - Anti Coag Clinic 1.8 (0.9-1.1)
== END 2023-08-19 11:23 | disposition home or self-care (01) ==
LOC: HO.ACS 10:48
PROVIDERS: PCP Internal Medicine; Visit Provider Internal Medicine
DX: Z79.01 Long term (current) 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 (principal)

== ENCOUNTER → 2023-08-19 10:48 | Outpatient (BNVA) | payer MEDICARE, SELFPAY | PROVIDERS: PCP Internal Medicine; Visit Provider Internal Medicine | DX: I48.20 Chronic atrial fibrillation, unspecified (principal); Z79.01 Long term (current) 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; Z51.81 Encounter for therapeutic drug level monitoring | CPT/HCPCS: 85610; 99211 ==

== ENCOUNTER 2023-08-27 09:47 | Outpatient (AMB) | payer MEDICARE, SELFPAY ==
[2023-08-27 09:54] LABS: Prothrombin Time Whole Bld POC 34.4 sec (11.1-13.5); ~PT, ~INR - Anti Coag Clinic 2.9 (0.9-1.1)
--- NOTE | 2023-08-27 10:01 | MHC.OFFVISCO ---
Intake Intake Visit Reasons: Anticoagulation Allergies No Known Allergies Allergy (Verified 08/27/23 09:48) Medication List - Last Reconciled 08/27/23 by Yumiko Gupta RN acetazolamide mg PO albuterol sulfate 90 mcg/actuation 3 inhalations inhalation QID PRN ascorbic acid (vitamin C) 500 mg PO DAILY cyanocobalamin (vitamin B-12) 1,000 mcg PO DAILY digoxin 125 mcg PO SUTUTHSA@2100 ezetimibe 10 mg PO DAILY ferrous sulfate 325 mg PO DAILY fluticasone furoate-vilanterol 100-25 mcg/dose (Breo Ellipta) 1 inh inhalation DAILY metformin 500 mg PO BIDWM metolazone 2.5 mg PO DAILY omeprazole 40 mg PO DAILY potassium chloride ER 20 mEq PO DAILY pravastatin 80 mg PO BEDTIME tiotropium bromide 18 mcg PO DAILY torsemide 40 mg (2 x 20 mg) PO BID 30 days warfarin 2.5 mg See Protocol PO MO warfarin 5 mg See Protocol PO SUTUWETHFRSA Nursing Note INR: 2.9 in therapeutic range Medications and supplements reviewed No changes in health, diet, medications, or supplements, - PT STATES HE IS WALKING BETTER NOW Denies any signs and symptoms of bleeding or bruising or clotting. Bleeding, bruising, clotting discussed Nutritional guidance given- RESUME WEEKLY GREENS Dose: 2.5MG X 2 DAYS/ 5MG X 5 DAYS F/U INR: 1 WEEK Patient verbalizes understanding of instructions given Anti-Coag Initial Assessment Social Hx Patient Tobacco Use Status: Former Tobacco user Quit Date: 13 yrs ago Alcohol intake frequency: former alcohol drinker Coding Level of Care Code Est Patient Level 1 Diagnoses Current use of anticoagulant therapy Z79.01 Results AMB INR Fingerstick AMB INR Fingerstick 2.9 Last Edit by Yumiko Gupta RN on 08/27/23 09:57 ONGOING INTERFACE FAILURE MANUAL ENTRY Assessment & Plan Assessment & Plan (1) Current use of anticoagulant therapy: Code(s): Z79.01 - care home (current) 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 Medications: Resumed warfarin 2.5 mg See Protocol PO MO warfarin 5 mg See Protocol PO SUTUWETHFRSA
== END 2023-08-27 10:09 | disposition home or self-care (01) ==
LOC: HO.ACS 09:47
PROVIDERS: PCP Internal Medicine; Visit Provider Internal Medicine
DX: Z79.01 Long term (current) 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 (principal)

== ENCOUNTER → 2023-08-27 09:47 | Outpatient (BNVA) | payer MEDICARE, SELFPAY | PROVIDERS: PCP Internal Medicine; Visit Provider Internal Medicine | DX: I48.20 Chronic atrial fibrillation, unspecified (principal); Z79.01 Long term (current) 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; Z51.81 Encounter for therapeutic drug level monitoring | CPT/HCPCS: 85610; 99211 ==

== ENCOUNTER 2023-09-04 09:49 | Outpatient (AMB) | payer MEDICARE, SELFPAY ==
--- NOTE | 2023-09-04 10:15 | MHC.OFFVISCO ---
Intake Intake Visit Reasons: Anticoagulation Allergies No Known Allergies Allergy (Verified 09/04/23 10:12) Medication List - Last Reconciled 09/04/23 by Breanna Jose RN albuterol sulfate 90 mcg/actuation 3 inhalations inhalation QID PRN ascorbic acid (vitamin C) 500 mg PO DAILY cyanocobalamin (vitamin B-12) 1,000 mcg PO DAILY digoxin 125 mcg PO SUTUTHSA@2100 ezetimibe 10 mg PO DAILY ferrous sulfate 325 mg PO DAILY fluticasone furoate-vilanterol 100-25 mcg/dose (Breo Ellipta) 1 inh inhalation DAILY metformin 500 mg PO BIDWM metolazone 2.5 mg PO DAILY omeprazole 40 mg PO DAILY potassium chloride ER 20 mEq PO DAILY pravastatin 80 mg PO BEDTIME tiotropium bromide 18 mcg PO DAILY torsemide 40 mg (2 x 20 mg) PO BID 30 days warfarin 2.5 mg See Protocol PO MO warfarin 5 mg See Protocol PO SUTUWETHFRSA Nursing Note INR: 2.1- in therapeutic range of 2-3 Medications and supplements reviewed- no changes No changes in health, diet, medications, or supplements, Denies any signs and symptoms of bleeding or bruising or clotting. Bleeding, bruising, clotting discussed Nutritional guidance given Dose: 2.5mg x 2, 5mg x 5 F/U INR: 2 weeks Patient verbalizes understanding of instructions given pt on cont oxygen , amb without assistive device, no c.o offered Anti-Coag Initial Assessment Social Hx Patient Tobacco Use Status: Former Tobacco user Quit Date: 13 yrs ago Alcohol intake frequency: former alcohol drinker Questionnaires HAS-BLED Does the patient had uncontrolled Hypertension?: No Does the patient have renal disease?: Yes Does the patient have liver disease?: No Does the patient have a history of stroke?: No Has the patient had major bleeding or predisposition to bleeding?: Yes Does the patient have labile INRs?: No Is the patient over 65 years of age?: Yes Is the patient on medications that gives them a predisposition to bleeding?: Yes Does the patient use alcohol?: No HAS-BLED Score: 4 CHADSVASC Age: 66-74 Gender: Male Does the patient have a history of CHF?: Yes Does the patient have a history of Hypertension?: Yes Does the patient have a history of Stroke/TIA/Thromboembolism?: No Does the patient have a history of Vascular Disease (prior OR, PAD or aortic plaque)?: No Does the patient have a history of Diabetes?: Yes CHADS VACS Score: 4 Duc Prediction Score Rsk VTE Active Cancer: No Previous VTE, excluding superficial vein thrombosis: No Reduced mobility: No Already known Thrombophilic Condition: No With-in last month Trauma and/or Surgery: No Elderly 70 year or older: Yes Heart and/or Respiratory Failure: Yes Acute Myocardial infarction and/or Ischemic Stroke: No Obesity (BMI 30 or greater): No Ongoing Hormonal Treatment: No Score: 2 Duc Score less than 4; Low Risk of VTE Duc Score 4 or greater; High Risk of VTE Coding Level of Care Code Est Patient Level 1 Diagnoses Current use of anticoagulant therapy Z79.01 Assessment & Plan Assessment & Plan (1) Current use of anticoagulant therapy: Code(s): Z79.01 - 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
[2023-09-04 10:16] LABS: Prothrombin Time Whole Bld POC 25.6 sec (11.1-13.5); ~PT, ~INR - Anti Coag Clinic 2.1 (0.9-1.1)
== END 2023-09-04 10:44 | disposition home or self-care (01) ==
LOC: HO.ACS 09:49
PROVIDERS: PCP Internal Medicine; Visit Provider Internal Medicine
DX: Z79.01 Long term (current) 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 (principal)

== ENCOUNTER → 2023-09-04 09:49 | Outpatient (BNVA) | payer MEDICARE, SELFPAY | PROVIDERS: PCP Internal Medicine; Visit Provider Internal Medicine | DX: I48.20 Chronic atrial fibrillation, unspecified (principal); Z79.01 Long term (current) 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; Z51.81 Encounter for therapeutic drug level monitoring | CPT/HCPCS: 85610; 99211 ==

== ENCOUNTER 2023-09-18 10:01 | Outpatient (AMB) | payer MEDICARE, SELFPAY ==
[2023-09-18 10:36] LABS: Prothrombin Time Whole Bld POC 30.7 sec (11.1-13.5); ~PT, ~INR - Anti Coag Clinic 2.6 (0.9-1.1)
--- NOTE | 2023-09-18 10:40 | MHC.OFFVISCO ---
Intake Intake Visit Reasons: Anticoagulation Allergies No Known Allergies Allergy (Verified 09/18/23 10:30) Medication List - Last Reconciled 09/18/23 by Yumiko Gupta RN albuterol sulfate 90 mcg/actuation 3 inhalations inhalation QID PRN ascorbic acid (vitamin C) 500 mg PO DAILY cyanocobalamin (vitamin B-12) 1,000 mcg PO DAILY digoxin 125 mcg PO SUTUTHSA@2100 ezetimibe 10 mg PO DAILY ferrous sulfate 325 mg PO DAILY fluticasone furoate-vilanterol 100-25 mcg/dose (Breo Ellipta) 1 inh inhalation DAILY metformin 500 mg PO BIDWM metolazone 2.5 mg PO DAILY omeprazole 40 mg PO DAILY potassium chloride ER 20 mEq PO DAILY pravastatin 80 mg PO BEDTIME tiotropium bromide 18 mcg PO DAILY torsemide 40 mg (2 x 20 mg) PO BID 30 days umeclidinium 62.5 mcg/actuation (Incruse Ellipta) 1 inh inhalation DAILY warfarin 2.5 mg See Protocol PO MO warfarin 5 mg See Protocol PO SUTUWETHFRSA Nursing Note INR: 2.6 in therapeutic range Medications and supplements reviewed No changes in health, diet, medications, or supplements, Denies any signs and symptoms of bleeding or bruising or clotting. Bleeding, bruising, clotting discussed Nutritional guidance given- review food list weekly eat a mix of fruit and vegetables Dose: keep same 2.5mg x 2 days/ 5mg x 5 days F/U INR: 3 weeks Patient verbalizes understanding of instructions given Anti-Coag Initial Assessment Social Hx Patient Tobacco Use Status: Former Tobacco user Quit Date: 13 yrs ago Alcohol intake frequency: former alcohol drinker Coding Level of Care Code Est Patient Level 1 Diagnoses Current use of anticoagulant therapy Z79.01 Assessment & Plan Assessment & Plan (1) Current use of anticoagulant therapy: Code(s): Z79.01 - correction (current) 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
== END 2023-09-18 10:43 | disposition home or self-care (01) ==
LOC: HO.ACS 10:01
PROVIDERS: PCP Internal Medicine; Visit Provider Internal Medicine
DX: Z79.01 Long term (current) 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 (principal)

== ENCOUNTER → 2023-09-18 10:01 | Outpatient (BNVA) | payer MEDICARE, SELFPAY | PROVIDERS: PCP Internal Medicine; Visit Provider Internal Medicine | DX: I48.20 Chronic atrial fibrillation, unspecified (principal); Z51.81 Encounter for therapeutic drug level monitoring; Z79.01 Long term (current) 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 | CPT/HCPCS: 85610; 99211 ==

== ENCOUNTER 2023-10-02 11:51 | Outpatient (REF) | payer MEDICARE, SELFPAY ==
[2023-10-02 13:09] LABS: Anion Gap 17 (12-20); Blood Urea Nitrogen 40 mg/dL (9-16); Calcium 8.9 mg/dL (8.4-10.2); Carbon Dioxide 36 mmol/L (22-29); Chloride 88 mmol/L (96-108); Estimated Glomerular Filt Rate 31; Glucose Random 251 mg/dL (60-115); Sodium 138 mmol/L (135-145)
== END 2023-10-02 11:52 | disposition home or self-care (01) ==
LOC: HO.LAB 11:51
PROVIDERS: Visit Provider Internal Medicine Cardiovascular Disease
DX: I50.9 Heart failure, unspecified (principal); E87.6 Hypokalemia
CPT/HCPCS: 36415; 80048

== ENCOUNTER 2023-10-05 09:08 | Outpatient (AMB) | payer MEDICARE, SELFPAY ==
--- NOTE | 2023-10-05 09:09 | A.OFFVIS_ITS ---
Vital Signs 10/05/23 09:10 Height 5 ft 8 in Weight 198 lb 6.656 oz BMI 30.2 BP 136/86 Blood Pressure Location Lt brachial Position Sitting Pulse 61 Pulse Oximetry (%) 90 L Intake Visit Reasons: 6 wk f/up labs Intake Note: 6 week follow-up after labs feeling good Outside Sales Professional Required: No Ethanol Operator: Ethanol Operator Present Accompanied by: Spouse Allergies No Known Allergies Allergy (Verified 09/18/23 10:30) Medication List - Last Reconciled 10/05/23 by Mateo Bird MD albuterol sulfate 90 mcg/actuation 3 inhalations inhalation QID PRN ascorbic acid (vitamin C) 500 mg PO DAILY cyanocobalamin (vitamin B-12) 1,000 mcg PO DAILY digoxin 125 mcg PO SUTUTHSA@2100 ezetimibe 10 mg PO DAILY ferrous sulfate 325 mg PO DAILY fluticasone furoate-vilanterol 100-25 mcg/dose (Breo Ellipta) 1 inh inhalation DAILY metformin 500 mg PO BIDWM metolazone 2.5 mg PO DAILY PRN omeprazole 40 mg PO DAILY potassium chloride ER 20 mEq PO DAILY pravastatin 80 mg PO BEDTIME tiotropium bromide 18 mcg PO DAILY torsemide 40 mg (2 x 20 mg) PO BID 30 days umeclidinium 62.5 mcg/actuation (Incruse Ellipta) 1 inh inhalation DAILY warfarin 2.5 mg See Protocol PO MO warfarin 5 mg See Protocol PO SUTUWETHFRSA HPI Comments Details: Deny comes for follow-up. All he has been doing well. His shortness of breath is been stable. He takes metolazone on a almost every day basis. His last potassium was 3. He denies any prolonged palpitation irregular heartbeat. He had some bleeding from his left 2nd toe after he pulled his nail out. But this has stopped. He has seen podiatry since then. Denies any orthopnea, PND. As per the he is not exercising as much. Denies any lightheadedness, syncope. [facility]LY [facility] Medical History (Updated 10/05/23 @ 09:44 by Mateo Bird MD) Chronic a-fib Macrocytic anemia Partial small bowel obstruction Anemia CHF (congestive heart failure) Diabetes mellitus CKD (chronic kidney disease) HTN (hypertension) Biatrial enlargement Pulmonary hypertension Chronic heart failure with preserved ejection fraction (HFpEF) HLD (hyperlipidemia) Current use of anticoagulant therapy Surgical History Hx of total hip arthroplasty Hx of colonoscopy Hx of esophagogastroduodenoscopy History of nephrectomy Hx of hernia repair Family History Father Cancer Mother No problems noted. Social History Household Members: Spouse Housing: House Do you presently have visiting nurse or other home services: No Comment: refused bed alarm Patient Tobacco Use Status: Former Tobacco user Quit Date: 13 yrs ago Second Hand Smoke Exposure: No Advance Directives Date on File: 06/01/00 service: No Review of Systems Const Denies chills, Denies fatigue, Denies fever(s), Denies frequent falls, Denies weakness, Denies weight gain and Denies weight loss ENT Denies dizziness Card Denies chest pain, Denies leg edema, Denies lightheadedness, Denies palpitations, Denies dyspnea, Denies dyspnea on exertion, Denies orthopnea and Denies other (loss of consciousness) Resp Denies cough, Denies dyspnea and Denies dyspnea on exertion GI Denies hematochezia and Denies change in stool character Musc Denies abnormal gait, Denies muscle weakness, Denies numbness, Denies radiating pain into limb and Denies tingling Neuro Denies abnormal gait, Denies dizziness, Denies frequent falls, Denies numbness, Denies tingling and Denies weakness Endo Denies fatigue and Denies palpitations Physical Exam Vital Signs: Last Vital Signs Pulse 61 10/05/23 09:10 BP 136/86 10/05/23 09:10 Pulse Ox 90 L 10/05/23 09:10 BMI result Body Mass Index 30.2 Const Other: wearing O2 with nasal cannula General: cooperative, comfortable and no acute distress Orientation/consciousness: patient oriented x3 Neck Neck: Yes normal visual inspection Resp Effort & Inspection: normal respiratory effort Auscultation: rales (each lateral base), no rhonchi and no wheezes Cardio Jugular venous distension: no JVD Rate: regular rate Rhythm: abnormal rhythm Heart sounds: S1 normal heart sound present, S2 normal heart sound present, no murmurs and no rubs GI Inspection: Yes normal to inspection Neuro General: patient oriented x3 Extrem Other: edema in lower legs, R>L, mid calf down to feet Psych Appearance: grossly normal Mental Status: mental status grossly normal Speech and movement: Normal speech and movement present Assessment & Plan Assessment & Plan (1) CHF (congestive heart failure): Code(s): I50.9 - Heart failure, unspecified Category: Medical Plan: Patient with heart failure preserved ejection fraction with secondary multiple comorbidities including advanced COPD requiring oxygen, atrial fibrillation 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 Encouraged to increase activity level. Continue current diuretic regimen. Currently requiring metolazone in addition to torsemide on a regular basis. Goals of therapy were discussed. Kidney function is more or less stable at this point time. Potassium is low. Advised to increase potassium to 40 mEq daily. Follow-up blood work in 4 days. Importance of this was discussed. Goals of therapy including avoidance of hospitalization was discussed. Continue management of COPD and oxygen therapy. Follow-up echocardiogram in 3 months time. (2) Chronic a-fib: Code(s): I48.20 - Chronic atrial fibrillation, unspecified Category: Medical Plan: Chronic atrial fibrillation, currently rate control on dual therapy with digoxin therapy alone. Requires digoxin. Can not tolerate other medications due to low blood pressure issues. Continue full oral anticoagulation, currently on warfarin. Target INR between 2 and 3. If INR becomes to the significant issue consider switching to a direct oral anticoagulant agent. (3) Enlarged thoracic aorta: Code(s): I77.89 - Other specified disorders of arteries and arterioles Category: Medical Plan: Thoracic aorta which is mildly enlarged. Continue current surveillance. Follow-up echocardiogram in 3 months time. No intervention surgically required on it. Will follow up in the clinic in 3 months time, sooner p.r.n.. Thank you for allowing me to partake in his care Orders: Orders Basic Metabolic Panel 4 Days I50.9 - Heart failure, unspecified Medications: Changed From potassium chloride ER Take 1 tab daily and repeat lab work 1 week after; then continue taking until further notice. 20 mEq PO DAILY 30 tabs 2RF To potassium chloride ER Take 1 tab daily and repeat lab work 1 week after; then continue taking until further notice. 40 mEq (2 x 20 mEq) PO DAILY 60 tabs 5RF From metolazone 2.5 mg PO DAILY 30 tabs 5RF for swelling To metolazone 2.5 mg PO DAILY PRN Coding Level of Care Code Est Pt Level 4 (19171) Diagnoses CHF (congestive heart failure) I50.9 Chronic a-fib I48.20 Enlarged thoracic aorta I77.89
[2023-10-05 09:10] VITALS: BP 136/86; PULSE 61; O2SAT 90; BMI 30.2
== END 2023-10-05 09:35 | disposition home or self-care (01) ==
PROVIDERS: PCP Internal Medicine; Visit Provider Internal Medicine Cardiovascular Disease
DX: I50.9 Heart failure, unspecified (principal); I48.20 Chronic atrial fibrillation, unspecified; I77.89 Other specified disorders of arteries and arterioles
CPT/HCPCS: 99214

== ENCOUNTER → 2023-10-05 09:08 | Outpatient (BNVA) | payer MEDICARE, SELFPAY | PROVIDERS: PCP Internal Medicine; Visit Provider Internal Medicine Cardiovascular Disease | DX: I11.0 Hypertensive heart disease with heart failure (principal); I50.32 Chronic diastolic (congestive) heart failure; I48.20 Chronic atrial fibrillation, unspecified; I77.89 Other specified disorders of arteries and arterioles; Z79.01 Long term (current) 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 | CPT/HCPCS: 99212 ==

== ENCOUNTER 2023-10-09 10:07 | Outpatient (AMB) | payer MEDICARE, SELFPAY ==
[2023-10-09 10:13] LABS: Prothrombin Time Whole Bld POC 45.9 sec (11.1-13.5); ~PT, ~INR - Anti Coag Clinic 3.8 (0.9-1.1)
--- NOTE | 2023-10-09 10:17 | MHC.OFFVISCO ---
Intake Intake Visit Reasons: Anticoagulation Allergies No Known Allergies Allergy (Verified 10/09/23 10:07) Medication List - Last Reconciled 10/09/23 by Aliza Segura RN albuterol sulfate 90 mcg/actuation 3 inhalations inhalation QID PRN ascorbic acid (vitamin C) 500 mg PO DAILY cyanocobalamin (vitamin B-12) 1,000 mcg PO DAILY digoxin 125 mcg PO SUTUTHSA@2100 ezetimibe 10 mg PO DAILY ferrous sulfate 325 mg PO DAILY fluticasone furoate-vilanterol 100-25 mcg/dose (Breo Ellipta) 1 inh inhalation DAILY metformin 500 mg PO BIDWM metolazone 2.5 mg PO DAILY PRN omeprazole 40 mg PO DAILY potassium chloride ER 40 mEq (2 x 20 mEq) PO DAILY pravastatin 80 mg PO BEDTIME tiotropium bromide 18 mcg PO DAILY torsemide 40 mg (2 x 20 mg) PO BID 30 days umeclidinium 62.5 mcg/actuation (Incruse Ellipta) 1 inh inhalation DAILY warfarin 2.5 mg See Protocol PO MO warfarin 5 mg See Protocol PO SUTUWETHFRSA Nursing Note PT.STATES THAT HE HAS HAD MORE REDS THAN USUAL THIS WEEK. NO CP,SOB,DIET/MED CHANGES,FALLS OR SX OF BLEEDING. HOLD WARFARIN TODAY THEN RESUME USUAL WARFARIN DOSE AND FOLLOW-UP IN 2 WEEKS. WILL BALANCE GREENS WITH REDS GOOD UNDERSTANDING OF DOSING INSTR. 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
== END 2023-10-09 10:19 | disposition home or self-care (01) ==
LOC: HO.ACS 10:07
PROVIDERS: PCP Internal Medicine; Visit Provider Internal Medicine
DX: Z79.01 Long term (current) 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 (principal)

== ENCOUNTER → 2023-10-09 10:07 | Outpatient (BNVA) | payer MEDICARE, SELFPAY | PROVIDERS: PCP Internal Medicine; Visit Provider Internal Medicine | DX: I48.20 Chronic atrial fibrillation, unspecified (principal); Z51.81 Encounter for therapeutic drug level monitoring; Z79.01 Long term (current) 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 | CPT/HCPCS: 85610; 99211 ==

== ENCOUNTER 2023-10-15 10:31 | Outpatient (REF) | payer MEDICARE, SELFPAY ==
[2023-10-15 11:21] LABS: Anion Gap 14 (12-20); Blood Urea Nitrogen 45 mg/dL (9-16); Calcium 9.2 mg/dL (8.4-10.2); Chloride 89 mmol/L (96-108); Estimated Glomerular Filt Rate 28; Sodium 139 mmol/L (135-145)
[2023-10-15 11:29] LABS: Carbon Dioxide 40 mmol/L (22-29); Glucose Random 406 mg/dL (60-115)
== END 2023-10-15 10:32 | disposition home or self-care (01) ==
LOC: HO.LAB 10:31
PROVIDERS: PCP Internal Medicine; Visit Provider Internal Medicine Cardiovascular Disease
DX: I50.32 Chronic diastolic (congestive) heart failure (principal)
CPT/HCPCS: 36415; 80048

== ENCOUNTER 2023-10-23 09:37 | Outpatient (REF) | payer MEDICARE, SELFPAY ==
[2023-10-23 11:22] LABS: Anion Gap 16 (12-20); Blood Urea Nitrogen 55 mg/dL (9-16); Calcium 9.1 mg/dL (8.4-10.2); Carbon Dioxide 36 mmol/L (22-29); Chloride 90 mmol/L (96-108); Estimated Glomerular Filt Rate 26; Glucose Random 344 mg/dL (60-115); Potassium 2.9 mmol/L (3.3-5.1); Sodium 139 mmol/L (135-145)
== END 2023-10-23 09:38 | disposition home or self-care (01) ==
LOC: HO.LAB 09:37
PROVIDERS: PCP Internal Medicine; Visit Provider Internal Medicine Cardiovascular Disease
DX: Z13.89 Encounter for screening for other disorder (principal)
CPT/HCPCS: 36415; 80048; 85610; 99211

== ENCOUNTER 2023-10-23 09:47 | Outpatient (AMB) | payer MEDICARE, SELFPAY ==
--- NOTE | 2023-10-23 09:56 | MHC.OFFVISCO ---
Intake Intake Visit Reasons: Anticoagulation Allergies No Known Allergies Allergy (Verified 10/23/23 09:52) Medication List - Last Reconciled 10/23/23 by Breanna Jose RN acetazolamide 125 mg PO BID 30 days albuterol sulfate 90 mcg/actuation 3 inhalations inhalation QID PRN ascorbic acid (vitamin C) 500 mg PO DAILY cyanocobalamin (vitamin B-12) 1,000 mcg PO DAILY digoxin 125 mcg PO SUTUTHSA@2100 ezetimibe 10 mg PO DAILY ferrous sulfate 325 mg PO DAILY fluticasone furoate-vilanterol 100-25 mcg/dose (Breo Ellipta) 1 inh inhalation DAILY metformin 500 mg PO BIDWM metolazone 2.5 mg PO DAILY PRN omeprazole 40 mg PO DAILY potassium chloride ER 40 mEq (2 x 20 mEq) PO DAILY pravastatin 80 mg PO BEDTIME tiotropium bromide 18 mcg PO DAILY torsemide 40 mg (2 x 20 mg) PO BID 30 days umeclidinium 62.5 mcg/actuation (Incruse Ellipta) 1 inh inhalation DAILY warfarin 2.5 mg See Protocol PO MO warfarin 5 mg See Protocol PO SUTUWETHFRSA Nursing Note INR 3.5-?? out of therapeutic range of 2-3 Medications and supplements reviewed Patient status: pt on cont oxygen, no c.,o Medications or supplements: no new Diet: had more reds, states can eat more greens, enc to eat greens 3 times week Denies any signs and symptoms of bleeding or clotting or unusual bruising Bleeding, bruising, clotting discussed Nutritional guidance given: eat greens today and tomm Dose: 2.5mg today then cont 5mg x 5, 2.5mg x 2 F/U INR Date : 2 weeks?? Patient verbalizing understanding of instructions given. Anti-Coag Initial Assessment Social Hx Patient Tobacco Use Status: Former Tobacco user Quit Date: 13 yrs ago Alcohol intake frequency: former alcohol drinker Coding Level of Care Code Est Patient Level 1 Diagnoses Current use of anticoagulant therapy Z79.01 Assessment & Plan Assessment & Plan (1) Current use of anticoagulant therapy: Code(s): Z79.01 - terminal makeup operator (current) 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
[2023-10-23 09:57] LABS: Prothrombin Time Whole Bld POC 41.5 sec (11.1-13.5); ~PT, ~INR - Anti Coag Clinic 3.5 (0.9-1.1)
== END 2023-10-23 10:03 | disposition home or self-care (01) ==
LOC: HO.ACS 09:47
PROVIDERS: PCP Internal Medicine; Visit Provider Internal Medicine
DX: Z79.01 Long term (current) 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 (principal)

== ENCOUNTER 2023-10-23 14:18 | Emergency (ER) | payer MEDICARE, SELFPAY ==
[2023-10-23 14:40] VITALS: BP 110/43; PULSE 63; RESP 18; TEMP 36.2; O2SAT 96; BMI 29.5
--- NOTE | 2023-10-23 14:40 | ED_ITS ---
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 in any does in the routine lab potassium noted to be 2.7 no change in medication lately patient been eating and drinking normally Related Data Home Medications ?Medication ?Instructions ?Recorded ?Confirmed ascorbic acid (vitamin C) 500 mg 500 mg PO DAILY 05/01/20 10/05/23 tablet ezetimibe 10 mg tablet 10 mg PO DAILY 05/01/20 10/05/23 ferrous sulfate 325 mg (65 mg 325 mg PO DAILY 05/01/20 10/05/23 iron) tablet metformin 500 mg tablet 500 mg PO BIDWM 05/01/20 10/05/23 tiotropium bromide 18 mcg capsule 18 mcg PO DAILY 05/01/20 10/05/23 with inhalation device cyanocobalamin (vitamin B-12) 1,000 mcg PO DAILY 12/15/22 10/05/23 1,000 mcg tablet warfarin 2.5 mg tablet 2.5 mg PO MO 04/03/23 10/23/23 warfarin 5 mg tablet 5 mg PO SUTUWETHFRSA 05/22/23 10/23/23 digoxin 125 mcg (0.125 mg) tablet 125 mcg PO SUTUTHSA@2100 07/30/23 10/05/23 fluticasone furoate 100 1 inh inhalation DAILY 07/30/23 10/05/23 mcg-vilanterol 25 mcg/dose inhalation powder (Breo Ellipta) pravastatin 80 mg tablet 80 mg PO BEDTIME 07/30/23 10/05/23 albuterol sulfate 90 mcg/actuation 3 inh inhalation QID PRN shortness 08/14/23 10/05/23 aerosol inhaler of breath or wheezing omeprazole 40 mg capsule,delayed 40 mg PO DAILY 08/19/23 10/05/23 release umeclidinium 62.5 mcg/actuation 1 inh inhalation DAILY 09/18/23 10/05/23 blister powder for inhalation (Incruse Ellipta) metolazone 2.5 mg tablet 2.5 mg PO DAILY PRN for swelling 10/05/23 10/05/23 Previous Rx's ?Medication ?Instructions ?Recorded torsemide 20 mg tablet 40 mg (2 x 20 mg) PO BID 30 days 06/19/23 #120 tabs potassium chloride 20 mEq 40 meq (2 x 20 mEq) PO DAILY #60 10/06/23 tablet,extended release tabs acetazolamide 125 mg tablet 125 mg PO BID 30 days #60 tabs 10/15/23 Allergies Allergy/AdvReac Type Severity Reaction Status Date / Time No Known Allergies Allergy Verified 10/23/23 14:41 Review of Systems 2 Review of Systems: Yes all other systems are reviewed and are negative [facility] Past Medical History Medical History Chronic a-fib Macrocytic anemia Partial small bowel obstruction Anemia CHF (congestive heart failure) Diabetes mellitus CKD (chronic kidney disease) HTN (hypertension) Biatrial enlargement Pulmonary hypertension Chronic heart failure with preserved ejection fraction (HFpEF) HLD (hyperlipidemia) Current use of anticoagulant therapy Surgical History Hx of total hip arthroplasty Hx of colonoscopy Hx of esophagogastroduodenoscopy History of nephrectomy Hx of hernia repair Family History Family History Father Cancer Mother No problems noted. Social History Social History Household Members: Spouse Housing: House Do you presently have visiting nurse or other home services: No Comment: refused bed alarm Patient Tobacco Use Status: Former Tobacco user Quit Date: 13 yrs ago Smoked in Last 30 Days: No Second Hand Smoke Exposure: No Use of substances other than those prescribed or required for medical reasons: No Advance Directives: Yes Advance Directives on File: Yes Advance Directives Date on File: 06/01/00 service: No Physical Exam ED Vital Signs: Vital Signs - 24 hr 10/23/23 14:40 10/23/23 16:02 10/23/23 18:34 Temperature 97.1 F 98.3 F 98.3 F Pulse Rate 63 66 63 Respiratory Rate 18 25 H 12 Blood Pressure 110/43 L 116/37 L 103/63 Pulse Oximetry 96 94 91 L Oxygen Delivery Method Nasal Cannula Nasal Cannula Nasal Cannula Oxygen Flow Rate 2 2 10/23/23 20:14 10/23/23 21:27 10/23/23 23:26 Temperature 98.2 F 98.2 F 98.2 F Pulse Rate 82 86 86 Respiratory Rate 16 16 16 Blood Pressure 103/47 L 112/47 L 112/47 L Pulse Oximetry 92 95 95 Oxygen Delivery Method Nasal Cannula Nasal Cannula Nasal Cannula Oxygen Flow Rate 2 2 2 BMI result Body Mass Index 29.5 Appearance: Alert. Oriented X3. No acute distress. Eyes: PERRLA, No Nystagmus ENT: Pharynx normal. Oral Mucosa moist Neck: Normal inspection. Neck supple. CVS: Normal heart rate and rhythm. Pulses normal. Respiratory: No respiratory distress. Equal air entry bilateral, no wheezing/rales/rhonchi Abdomen: Soft and nontender. Bowel sounds are present, no mass palpable, no CVA tenderness Skin: Skin warm and dry. Normal skin color. Normal skin turgor. Extremities: No lower extremity edema. No calf tenderness Neuro: Oriented X 3. No motor deficit. No sensory deficit.No cerebellar signs , cranial nerves II-XII intact Course Course Course Narrative: This is an RME: Additional HPI, ROS, PE not included below will be deferred to primary provider. RME assessment and note performed by: Cristy Burciaga PA-C This is a 73 yo male with PMH of afib on coumadin, CHF 65-70%, chronic leg edema and venous insufficiency, HTN, HLD, pulm HTN on chronic O2 at home presenting to the emergency department for low potassium. He was called by Dr. Bird as his potassium level was 2.9. He states that he was getting blood work for routine testing. He feels well, no current complaints. Plan: labs, EKG, further ER evaluation needed. Medications Administered Discontinued Medications Generic Name Dose Route Start Last Admin Trade Name Freq PRN Reason Stop Dose Admin Potassium Chloride 10 meq in 100 mls @ 100 mls/hr 10/23/23 16:00 10/23/23 21:51 Potassium Chloride/H20 IV 10/23/23 19:59 Infused Q1H MERT Infusion Potassium Bicarbonate 50 meq 10/23/23 16:13 10/23/23 16:19 Potassium Bicarbonate/Cit Ac 25 Meq Tablet.Eff PO 10/23/23 16:14 50 meq ONCE ONE Administration Potassium Chloride 40 meq 10/23/23 21:06 10/23/23 21:42 Potassium Chloride Er 20 Meq Tab.Er.Prt PO 10/23/23 21:07 40 meq ONCE ONE Administration Medical Decision Making Medical Decision Making [facility] Narrative: Patient with significant hypokalemia with atrial fibrillation with PVCs potassium was replaced repeat potassium was 3 patient was given another dose of p.o. potassium will discharge patient home advised to increase the dose of potassium tablet to 40 mg daily and follow up with PCP for repeat potassium level in 1 week Lab Data [facility] Lab Attestation statement: I reviewed the patient's lab results. 10/23/23 15:03 10/23/23 21:26 Labs: Lab Results 10/23/23 10/23/23 Range/Units 15:03 21:26 WBC 9.1 (4.8-10.8) X10*3/uL RBC 2.70 L (4.60-5.80) X10*6/uL Hgb 8.7 L (14.0-18.0) g/dl Hct 27.0 L (42.0-52.0) % MCV 100.0 H (80.0-98.0) fL MCH 32.2 (27.0-33.0) pg MCHC 32.2 (31.0-36.0) g/dl RDW 21.4 H (11.0-16.0) % Plt Count 260 (160-400) X10*3/uL MPV 10.0 (9.4-12.4) fL Immature Gran % (Auto) 0.8 H (0.0-0.4) % Neut % (Auto) 80.6 H (45-73) % Lymph % (Auto) 8.5 L (20-40) % [place] % (Auto) 8.4 (2-11) % Eos % (Auto) 1.4 (0-4) % Baso % (Auto) 0.3 (0-2) % Lymph # (Auto) 0.8 L (1.2-4.9) X10*3/uL [place] # (Auto) 0.8 (0.1-1.2) X10*3/uL Eos # (Auto) 0.1 (0.0-0.4) X10*3/uL Baso # (Auto) 0.0 (0.0-0.2) X10*3/uL Abs Immat Gran (auto) 0.07 H (0.00-0.03) X10*3/uL Absolute Neuts (auto) 7.3 (2.0-8.3) x10*3/uL Absolute Nucleated RBC 0.020 H (0.0-0.012) X10*3/uL Nucleated RBC % (auto) 0.2 (0.0-0.2) /100WBC PT 35.4 H D (11.1-13.3) SEC INR 2.9 H (0.9-1.1) APTT 41.4 H (26.0-36.8) SEC Sodium 136 136 (135-145) mmol/L Potassium 2.7 L* 3.3 D (3.3-5.1) mmol/L Chloride 89 L 89 L (96-108) mmol/L Carbon Dioxide 36 H 38 H (22-29) mmol/L Anion Gap 14 12 (12-20) BUN 58 H 51 H (9-16) mg/dL Creatinine 2.38 H 2.31 H (0.5-1.4) mg/dL Estim Creat Clear Calc 29.3 30.2 Estimated GFR 27 28 Random Glucose 316 H 375 H* (60-115) mg/dL Calcium 9.1 8.7 (8.4-10.2) mg/dL Magnesium 2.7 H (1.6-2.6) mg/dL Total Bilirubin 0.5 (0.0-1.0) mg/dL Direct Bilirubin 0.3 (0.0-0.5) mg/dL AST 17 (5-37) U/L ALT 11 (0-40) U/L Alkaline Phosphatase 43 (39-117) U/L Total Protein 6.8 (6.5-8.0) g/dL Albumin 3.9 (3.5-5.0) g/dL Independent Interpretation I performed an independent interpretation of an: EKG Interpretation: Atrial fibrillation with ventricular rate of 64 beats per minute with PVCs no acute STT wave changes no acute ischemia Discharge Plan Discharge Clinical Impression: Acute hypokalemia, Chronic kidney disease Patient Disposition: Home, Self-Care Instructions: Chronic Kidney Disease (ED), Potassium Content of Foods List (ED), Hypokalemia (ED) Additional Instructions: Increase the dose of your potassium tablet to 40 mEq daily(2 cap) daily Have food which are rich in potassium leg bananas oranges coconut water Follow with your PCP for recheck of your potassium level in 3 days Prescriptions: No Action torsemide 20 mg tablet 40 mg PO BID 30 Days Qty: 120 5RF potassium chloride 20 mEq tablet extended release 40 meq PO DAILY Qty: 60 5RF Rx Instructions: Take 2 tabs daily and repeat lab work 1 week after; then continue taking until further notice. acetazolamide 125 mg tablet 125 mg PO BID 30 Days Qty: 60 0RF Rx Instructions: New med for CO2 retention cyanocobalamin (vitamin B-12) 1,000 mcg Tablet 1,000 mcg PO DAILY fluticasone furoate-vilanterol [Breo Ellipta] 100-25 mcg/dose Blister With Device 1 inh INHALATION DAILY pravastatin 80 mg tablet 80 mg PO BEDTIME digoxin 125 mcg (0.125 mg) tablet 125 mcg PO SUTUTHSA@2100 tiotropium bromide 18 mcg capsule, w/inhalation device 18 mcg PO DAILY ferrous sulfate 325 mg (65 mg iron) tablet 325 mg PO DAILY metformin 500 mg tablet 500 mg PO BIDWM ezetimibe 10 mg tablet 10 mg PO DAILY ascorbic acid (vitamin C) 500 mg tablet 500 mg PO DAILY warfarin 2.5 mg tablet 2.5 mg PO MO Hold Instructions: Resume on 08/09/23. Protocol: Dose Management Condition: Thursday (Week One) Dose/Route: 5 mg Instruction: 1 x 5 mg tablet Condition: Thursday Dose/Route: 2.5 mg Instruction: 1 x 2.5 mg tablet Condition: Thursday Dose/Route: 5 mg Instruction: 1 x 5 mg tablet Condition: Thursday Dose/Route: 5 mg Instruction: 1 x 5 mg tablet Condition: Dose/Route: 2.5 mg Instruction: 1 x 2.5 mg tablet Condition: Thursday Dose/Route: 2.5 mg Instruction: 1 x 2.5 mg tablet Condition: Thursday Dose/Route: 5 mg Instruction: 1 x 5 mg tablet Condition: Thursday (Week Two) Dose/Route: 5 mg Instruction: 1 x 5 mg tablet Condition: Thursday Dose/Route: 2.5 mg Instruction: 1 x 2.5 mg tablet Condition: Thursday Dose/Route: 5 mg Instruction: 1 x 5 mg tablet Condition: Thursday Dose/Route: 5 mg Instruction: 1 x 5 mg tablet Condition: Dose/Route: 2.5 mg Instruction: 1 x 2.5 mg tablet Condition: Thursday Dose/Route: 5 mg Instruction: 1 x 5 mg tablet Condition: Thursday Dose/Route: 5 mg Instruction: 1 x 5 mg tablet Protocol Text: Adjustment Start Date: Thursday10/23/23 INR Value: 3.5 INR Date: 10/23/23 Recheck Date: 11/06/23 Additional Instructions: take 2.5mg today then cont weekly dosing eat greens today and tomm, no reds for 2 days metolazone 2.5 mg tablet 2.5 mg PO DAILY PRN (Reason: for swelling) omeprazole 40 mg capsule,delayed release(DR/EC) 40 mg PO DAILY warfarin 5 mg tablet 5 mg PO SUTUWETHFRSA Hold Instructions: Resume on 08/09/23. Protocol: Dose Management Condition: Thursday (Week One) Dose/Route: 5 mg Instruction: 1 x 5 mg tablet Condition: Thursday Dose/Route: 2.5 mg Instruction: 1 x 2.5 mg tablet Condition: Thursday Dose/Route: 5 mg Instruction: 1 x 5 mg tablet Condition: Thursday Dose/Route: 5 mg Instruction: 1 x 5 mg tablet Condition: Dose/Route: 2.5 mg Instruction: 1 x 2.5 mg tablet Condition: Thursday Dose/Route: 2.5 mg Instruction: 1 x 2.5 mg tablet Condition: Thursday Dose/Route: 5 mg Instruction: 1 x 5 mg tablet Condition: Thursday (Week Two) Dose/Route: 5 mg Instruction: 1 x 5 mg tablet Condition: Thursday Dose/Route: 2.5 mg Instruction: 1 x 2.5 mg tablet Condition: Thursday Dose/Route: 5 mg Instruction: 1 x 5 mg tablet Condition: Thursday Dose/Route: 5 mg Instruction: 1 x 5 mg tablet Condition: Dose/Route: 2.5 mg Instruction: 1 x 2.5 mg tablet Condition: Thursday Dose/Route: 5 mg Instruction: 1 x 5 mg tablet Condition: Thursday Dose/Route: 5 mg Instruction: 1 x 5 mg tablet Protocol Text: Adjustment Start Date: Thursday10/23/23 INR Value: 3.5 INR Date: 10/23/23 Recheck Date: 11/06/23 Additional Instructions: take 2.5mg today then cont weekly dosing eat greens today and tomm, no reds for 2 days albuterol sulfate 90 mcg/actuation HFA aerosol inhaler 3 inh inhalation QID PRN (Reason: shortness of breath or wheezing) Incruse Ellipta 62.5 mcg/actuation blister with device 1 inh inhalation DAILY Interventions: ED Discharge Assessment Last Done: 10/23/23 23:26 Discharge Date/Time: 10/23/23 23:28 Print Language: Malay
--- NOTE | 2023-10-23 14:42 | ECG_ITS ---
Test Reason : LOW K Blood Pressure : / mmHG Vent. Rate : 064 BPM Atrial Rate : 000 BPM P-R Int : 000 ms QRS Dur : 114 ms QT Int : 440 ms P-R-T Axes : 000 041 -14 degrees QTc Int : 453 ms Atrial fibrillation with premature ventricular or aberrantly conducted complexes and with ventricular escape complexes Nonspecific ST abnormality Abnormal ECG When compared with ECG of 30-JUL-2023 12:53, No significant changes seen Referred By: Cristy Burciaga Electronically Signed By:Brandt Morrell
[2023-10-23 15:07] LABS: MANUAL DIFF FLAG NO
[2023-10-23 15:27] LABS: Basophils Percent Auto 0.3 % (0-2); Eosinophils Absolute Auto 0.1 X10*3/uL (0.0-0.4); Eosinophils Percent Auto 1.4 % (0-4); Hemoglobin 8.7 g/dl (14.0-18.0); Imm Gran Abs Auto 0.07 X10*3/uL (0.00-0.03); Imm Gran Pct Auto 0.8 % (0.0-0.4); Lymphocytes Absolute Auto 0.8 X10*3/uL (1.2-4.9); Lymphocytes Percent Auto 8.5 % (20-40); Mean Corpuscular HGB Conc 32.2 g/dl (31.0-36.0); Mean Corpuscular Hemoglobin 32.2 pg (27.0-33.0); Monocytes Absolute Auto 0.8 X10*3/uL (0.1-1.2); Monocytes Percent Auto 8.4 % (2-11); NRBC Pct Auto 0.2 /100WBC (0.0-0.2); Neutrophils Absolute Auto 7.3 x10*3/uL (2.0-8.3); Neutrophils Percent Auto 80.6 % (45-73); Platelet Count 260 X10*3/uL (160-400); Red Cell Distribution Width 21.4 % (11.0-16.0); White Blood Count 9.1 X10*3/uL (4.8-10.8)
[2023-10-23 15:33] LABS: INTERNATIONAL NORM RATIO 2.9 (0.9-1.1); Prothrombin Time 35.4 SEC (11.1-13.3)
[2023-10-23 15:35] LABS: Partial Thromboplastin Time 41.4 SEC (26.0-36.8)
[2023-10-23 15:43] LABS: Alanine Aminotransferase 11 U/L (0-40); Albumin Level 3.9 g/dL (3.5-5.0); Alkaline Phosphatase 43 U/L (39-117); Anion Gap 14 (12-20); Aspartate Amino Transferase 17 U/L (5-37); Bilirubin Direct 0.3 mg/dL (0.0-0.5); Bilirubin Total 0.5 mg/dL (0.0-1.0); Blood Urea Nitrogen 58 mg/dL (9-16); Calcium 9.1 mg/dL (8.4-10.2); Carbon Dioxide 36 mmol/L (22-29); Chloride 89 mmol/L (96-108); Creatinine Clr Calc Pharmacy 29.3; Estimated Glomerular Filt Rate 27; Glucose Random 316 mg/dL (60-115); Magnesium 2.7 mg/dL (1.6-2.6); Potassium 2.7 mmol/L (3.3-5.1); Sodium 136 mmol/L (135-145); Total Protein 6.8 g/dL (6.5-8.0)
[2023-10-23 16:02] VITALS: BP 116/37; PULSE 66; RESP 25; TEMP 36.8; O2SAT 94
[2023-10-23] MEDS: Potassium Chloride/H20 10 MEQ/100 ML PIGGYBACK 100 MEQ IV ×4 (16:14→20:33)
[2023-10-23] MEDS: Potassium Bicarbonate/Cit AC 25 MEQ TABLET.EFF 50 MEQ PO (16:19)
--- NOTE | 2023-10-23 16:30 | MHC.EDTECH ---
Changed patient over, attached heart monitor leads to patient. warm blanket and pillow given.
[2023-10-23 18:34] VITALS: BP 103/63; PULSE 63; RESP 12; TEMP 36.8; O2SAT 91
--- NOTE | 2023-10-23 18:44 | MHC.EDTECH ---
Patient requested food and liquids, given liquids and sandwich.
--- NOTE | 2023-10-23 19:23 | PC.NURSE ---
pt resting comfortably, 3 of 4 bags infusing. denies pain, no concerns at this time
[2023-10-23 20:14] VITALS: BP 103/47; PULSE 82; RESP 16; TEMP 36.8; O2SAT 92
--- NOTE | 2023-10-23 20:28 | PC.NURSE ---
medication delayed, infusion slowed for IV discomfort
[2023-10-23 21:27] VITALS: BP 112/47; PULSE 86; RESP 16; TEMP 36.8; O2SAT 95
[2023-10-23] MEDS: Potassium Chloride ER 20 MEQ TAB.ER.PRT 40 MEQ PO (21:42)
[2023-10-23 21:51] LABS: Anion Gap 12 (12-20); Blood Urea Nitrogen 51 mg/dL (9-16); Calcium 8.7 mg/dL (8.4-10.2); Carbon Dioxide 38 mmol/L (22-29); Chloride 89 mmol/L (96-108); Creatinine Clr Calc Pharmacy 30.2; Estimated Glomerular Filt Rate 28; Glucose Random 375 mg/dL (60-115); Potassium 3.3 mmol/L (3.3-5.1); Sodium 136 mmol/L (135-145)
[2023-10-23 23:26] VITALS: BP 112/47; PULSE 86; RESP 16; TEMP 36.8; O2SAT 95
== END 2023-10-23 23:28 | disposition home or self-care (01) ==
PROVIDERS: Physician Assistant Medical; Emergency Provider Internal Medicine; PCP Internal Medicine
DX: E87.6 Hypokalemia (principal); E11.22 Type 2 diabetes mellitus with diabetic chronic kidney disease; I13.0 Hypertensive heart and chronic kidney disease with heart failure and stage 1 through stage 4 chronic kidney disease, or unspecified chronic kidney disease; N18.9 Chronic kidney disease, unspecified; I50.9 Heart failure, unspecified; Z79.01 Long term (current) 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; Z79.84 Long term (current) use of oral hypoglycemic drugs; Z79.899 Other long term (current) drug therapy
CPT/HCPCS: 36415; 80048; 80076; 83735; 85025; 85610; 85730; 93005; 96365; 96366; 99211; 99285; J3480

== ENCOUNTER → 2023-10-23 14:42 | Outpatient (BNV) | payer MEDICARE, SELFPAY | PROVIDERS: Emergency Provider Internal Medicine; PCP Internal Medicine; Visit Provider Internal Medicine Cardiovascular Disease | DX: R94.31 Abnormal electrocardiogram [ECG] [EKG] (principal) | CPT/HCPCS: 93010 ==

== ENCOUNTER 2023-11-06 09:59 | Outpatient (REF) | payer MEDICARE, SELFPAY ==
[2023-11-06 12:35] LABS: Anion Gap 16 (12-20); Blood Urea Nitrogen 45 mg/dL (9-16); Calcium 9.2 mg/dL (8.4-10.2); Carbon Dioxide 35 mmol/L (22-29); Chloride 91 mmol/L (96-108); Estimated Glomerular Filt Rate 31; Potassium 3.1 mmol/L (3.3-5.1); Sodium 139 mmol/L (135-145)
[2023-11-06 13:56] LABS: Glucose Random 353 mg/dL (60-115)
== END 2023-11-06 10:00 | disposition home or self-care (01) ==
LOC: HO.LAB 09:59
PROVIDERS: PCP Internal Medicine; Visit Provider Nurse Practitioner
DX: I48.20 Chronic atrial fibrillation, unspecified (principal); E87.6 Hypokalemia; Z51.81 Encounter for therapeutic drug level monitoring; Z79.01 Long term (current) 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
CPT/HCPCS: 36415; 80048; 85610; 99211

== ENCOUNTER 2023-11-06 10:13 | Outpatient (AMB) | payer MEDICARE, SELFPAY ==
--- NOTE | 2023-11-06 10:21 | MHC.OFFVISCO ---
Intake Intake Visit Reasons: Anticoagulation Allergies No Known Allergies Allergy (Verified 11/06/23 10:17) Medication List - Last Reconciled 11/06/23 by Breanna Jose RN acetazolamide 125 mg PO BID 30 days albuterol sulfate 90 mcg/actuation 3 inhalations inhalation QID PRN ascorbic acid (vitamin C) 500 mg PO DAILY cyanocobalamin (vitamin B-12) 1,000 mcg PO DAILY digoxin 125 mcg PO SUTUTHSA@2100 ezetimibe 10 mg PO DAILY ferrous sulfate 325 mg PO DAILY fluticasone furoate-vilanterol 100-25 mcg/dose (Breo Ellipta) 1 inh inhalation DAILY metformin 500 mg PO BIDWM metolazone 2.5 mg PO DAILY PRN omeprazole 40 mg PO DAILY potassium chloride ER 40 mEq (2 x 20 mEq) PO DAILY pravastatin 80 mg PO BEDTIME tiotropium bromide 18 mcg PO DAILY torsemide 40 mg (2 x 20 mg) PO BID 30 days umeclidinium 62.5 mcg/actuation (Incruse Ellipta) 1 inh inhalation DAILY warfarin 2.5 mg See Protocol PO MO warfarin 5 mg See Protocol PO SUTUWETHFRSA Nursing Note INR 1.7-?? out of therapeutic range of 2-3 pt states missed a dose last sat Medications and supplements reviewed Patient status: on cont oxygen Medications or supplements: no changes Diet: same Denies any signs and symptoms of bleeding or clotting or unusual bruising Bleeding, bruising, clotting discussed Nutritional guidance given: no greens for 2 days, eat a red today Dose: 7.5mg today then cont reg dosing F/U INR Date : 2 weeks? Patient verbalizing understanding of instructions given. Anti-Coag Initial Assessment Social Hx Patient Tobacco Use Status: Former Tobacco user Alcohol intake frequency: holidays/special occasions only Coding Level of Care Code Est Patient Level 1 Diagnoses Current use of anticoagulant therapy Z79.01 Assessment & Plan Assessment & Plan (1) Current use of anticoagulant therapy: Code(s): Z79.01 - skilled nursing (current) 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
[2023-11-06 10:22] LABS: Prothrombin Time Whole Bld POC 20.4 sec (11.1-13.5); ~PT, ~INR - Anti Coag Clinic 1.7 (0.9-1.1)
== END 2023-11-06 10:26 | disposition home or self-care (01) ==
LOC: HO.ACS 10:13
PROVIDERS: PCP Internal Medicine; Visit Provider Internal Medicine
DX: Z79.01 Long term (current) 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 (principal)

== ENCOUNTER 2023-11-18 19:57 | Inpatient (IN) | payer MEDICARE, SELFPAY ==
--- NOTE | ~2023-11-18 | XR_ITS ---
EXAMINATION: XR CHEST CLINICAL INFORMATION: Shortness of breath COMPARISON: Previous chest x-ray July 2023 TECHNIQUE: Frontal view of the chest was obtained. FINDINGS: No significant abnormality is noted involving the heart, lungs, mediastinum, bony thorax or soft tissues. XR/XR chest 1V IMPRESSION: Unremarkable examination.
--- NOTE | ~2023-11-18 | NM_ITS ---
EXAMINATION: NM TC RBC GI BLEEDING CLINICAL INFORMATION: Melanotic stool. PROCEDURE: Following the intravenous administration of 25 mCi Tc-99m blood cells, sequential static images of the abdomen were obtained using a gamma scintillation camera for a total observation of 60 minutes. COMPARISON: CT abdomen/pelvis 11/19/2023. FINDINGS: No abnormal accumulations of radioisotope are seen in the abdomen. NM/NM GI bleeding IMPRESSION: No gastrointestinal bleeding is identified.
--- NOTE | ~2023-11-18 | CT_ITS ---
EXAMINATION: CT ABDOMEN AND PELVIS WITHOUT CONTRAST CLINICAL INFORMATION: Abdominal pain and GI bleed COMPARISON: CT abdomen pelvis 12/21/2022 TECHNIQUE: Multidetector volumetric imaging was performed from the superior aspect of the liver through the pubic symphysis. Sagittal and coronal reformatted images were obtained on the technologist's workstation. This CT examination was performed using dose optimization techniques as appropriate, variously including the following: *Automated exposure control *Adjustment of mA and/or kV according to patient size (this includes techniques or standardized protocols for targeted exams where dose is matched to indication/reason for exam; i.e. extremities or head) *Use of iterative reconstruction technique DLP: 665 mGy-cm FINDINGS: LUNG BASES: Emphysematous changes are present at the lung bases. Bibasilar atelectasis/scarring. There is mild cardiac enlargement. LIVER, GALLBLADDER, AND BILIARY TREE: The liver border is nodular suggesting cirrhosis. No focal hepatic lesion or biliary ductal dilatation is present. The gallbladder contains small layering gallstones but is otherwise unremarkable with no evidence of gallbladder wall thickening, or obvious pericholecystic inflammatory changes. PANCREAS: Unremarkable. SPLEEN: Splenomegaly of 14 cm ADRENAL GLANDS: Unchanged bilateral low attenuation adrenal masses are present consistent with benign adenomas, as seen previously KIDNEYS AND URETERS: The kidneys are normal in size, shape, and attenuation. No hydronephrosis, hydroureter, or calculi seen. Status post right nephrectomy. Multiple benign left-sided Bosniak class I renal cysts are noted which require no additional imaging or follow-up. No solid renal masses are seen. BLADDER: Unremarkable. GASTROINTESTINAL TRACT: The small and large bowel are unremarkable aside from colonic diverticulosis without diverticulitis. The appendix is unremarkable. ABDOMINAL WALL: No significant hernia is appreciated. LYMPH NODES: Normal. VASCULAR: Calcific atherosclerotic changes are present in the aorta and iliofemoral vessels. 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 PELVIC VISCERA: Prostate is enlarged with a TURP defect. Seminal vesicles appear normal. OSSEOUS STRUCTURES: Right hip prosthesis is present. Severe degenerative changes are seen in the left hip. Moderately degenerative changes present throughout the spine most marked at L4-L5 and L5-S1. No bony destructive lesions. CT/CT abdomen pelvis wo IV con IMPRESSION: 1. A cause for the patient's abdominal pain and GI bleed has not been found. 2. Incidental note made of cirrhotic appearing liver with splenomegaly, cholelithiasis, benign adrenal adenomas (need no follow-up), right nephrectomy, colonic diverticulosis without diverticulitis and other findings described above. Fleischner guidelines were followed.
[2023-11-18 20:04] VITALS: BP 102/56; PULSE 104; O2SAT 99
[2023-11-18 20:06] VITALS: BP 112/49; PULSE 76; RESP 25; TEMP 36.4; O2SAT 100; BMI 28.5
--- NOTE | 2023-11-18 20:10 | ECG_ITS ---
Test Reason : SOB Blood Pressure : / mmHG Vent. Rate : 087 BPM Atrial Rate : 000 BPM P-R Int : 000 ms QRS Dur : 100 ms QT Int : 352 ms P-R-T Axes : 000 041 260 degrees QTc Int : 423 ms Atrial fibrillation with premature ventricular or aberrantly conducted complexes ST & T wave abnormality, consider inferior ischemia ST & T wave abnormality, consider anterolateral ischemia Abnormal ECG When compared with ECG of 23-OCT-2023 14:51, No significant changes seen Referred By: Generic ED Physician Electronically Signed By:Brandt Morrell
[2023-11-18 20:34] LABS: Glucose, Whole Blood 390 mg/dL (60-115)
[2023-11-18 20:35] LABS: MANUAL DIFF FLAG NO
[2023-11-18 20:36] LABS: Basophils Absolute Auto 0.1 X10*3/uL (0.0-0.2); Basophils Percent Auto 0.3 % (0-2); Eosinophils Percent Auto 0.2 % (0-4); Imm Gran Abs Auto 0.08 X10*3/uL (0.00-0.03); Imm Gran Pct Auto 0.5 % (0.0-0.4); Lymphocytes Absolute Auto 1.3 X10*3/uL (1.2-4.9); Mean Corpuscular HGB Conc 32.7 g/dl (31.0-36.0); Mean Corpuscular Hemoglobin 32.7 pg (27.0-33.0); Mean Platelet Volume 10.1 fL (9.4-12.4); Monocytes Absolute Auto 1.2 X10*3/uL (0.1-1.2); Monocytes Percent Auto 8.2 % (2-11); NRBC Pct Auto 0.3 /100WBC (0.0-0.2); Neutrophils Absolute Auto 11.9 x10*3/uL (2.0-8.3); Neutrophils Percent Auto 81.8 % (45-73); Platelet Count 375 X10*3/uL (160-400); Red Blood Count 1.99 X10*6/uL (4.60-5.80); Red Cell Distribution Width 20.1 % (11.0-16.0); White Blood Count 14.6 X10*3/uL (4.8-10.8)
[2023-11-18 20:44] LABS: VBG Base Excess 6.4 mmol/L; VBG HCO3 32 mmol/L (22-26); VBG pCO2 57 mmHg; VBG pH 7.36 (7.32-7.43); VBG pO2 41 mmHg
[2023-11-18 20:47] LABS: Hematocrit 19.9 % (42.0-52.0)
[2023-11-18 20:48] LABS: Hemoglobin 6.5 g/dl (14.0-18.0)
[2023-11-18 20:58] LABS: B Type Natriuretic Peptide 45 pg/mL (<100)
[2023-11-18 20:59] LABS: Alanine Aminotransferase 9 U/L (0-40); Albumin Level 3.4 g/dL (3.5-5.0); Alkaline Phosphatase 32 U/L (39-117); Anion Gap 16 (12-20); Aspartate Amino Transferase 14 U/L (5-37); Bilirubin Total 0.4 mg/dL (0.0-1.0); Blood Urea Nitrogen 87 mg/dL (9-16); Calcium 8.6 mg/dL (8.4-10.2); Carbon Dioxide 31 mmol/L (22-29); Chloride 90 mmol/L (96-108); Creatinine Clr Calc Pharmacy 26.5; Estimated Glomerular Filt Rate 24; Glucose Random 419 mg/dL (60-115); Magnesium 2.2 mg/dL (1.6-2.6); Potassium 3.6 mmol/L (3.3-5.1); Sodium 133 mmol/L (135-145)
[2023-11-18 21:00] LABS: Venous Blood Gas Refer to POC result
[2023-11-18 21:02] LABS: Troponin-I High Sensitivity 14.9 ng/L (<3.5-35.0)
--- NOTE | 2023-11-18 21:17 | ED_ITS ---
HPI - GI Bleed General Chief complaint: GI Bleed Stated complaint: weakness,sob,rectal bleeding Time Seen by Provider: 11/18/23 20:50 Source: patient and family Mode of arrival: EMS Limitations: no limitations History of Present Illness ED Provider: dee BHARDWAJ Narrative: 73 YM with chronic atrial fibrillation on anticoagulation, essential hypertension, congestive heart failure with preserved ejection fraction, venous stasis, mixed hyperlipidemia, [id number] diabetes mellitus, chronic hypoxemic respiratory failure due to COPD on 2 L supplemental oxygen at baseline was admitted on 08/03/23 with heme-positive stools and significant anemia hemoglobin of 6.7 requiring 4 units of blood transfusion had colonoscopy and endoscopy done at that time showed severe diverticulosis and erythema of the stomach no active bleeding point was noticed comes here for feeling weak with black stool since yesterday on arrival patient's hemoglobin was 6.5 hematocrit 19.9 denied any abdominal pain no nausea no vomiting Related Data Home Medications ?Medication ?Instructions ?Recorded ?Confirmed ascorbic acid (vitamin C) 500 mg 500 mg PO DAILY 05/01/20 11/18/23 tablet ezetimibe 10 mg tablet 10 mg PO DAILY 05/01/20 11/18/23 ferrous sulfate 325 mg (65 mg 325 mg PO DAILY 05/01/20 11/18/23 iron) tablet metformin 500 mg tablet 500 mg PO BIDWM 05/01/20 11/18/23 tiotropium bromide 18 mcg capsule 18 mcg PO DAILY 05/01/20 11/18/23 with inhalation device cyanocobalamin (vitamin B-12) 1,000 mcg PO DAILY 12/15/22 11/18/23 1,000 mcg tablet warfarin 2.5 mg tablet 2.5 mg PO SUTUTHSA 04/03/23 11/18/23 warfarin 5 mg tablet 5 mg PO MOWEFR 05/22/23 11/18/23 digoxin 125 mcg (0.125 mg) tablet 125 mcg PO Q48H 07/30/23 11/18/23 fluticasone furoate 100 1 inh inhalation DAILY 07/30/23 11/18/23 mcg-vilanterol 25 mcg/dose inhalation powder (Breo Ellipta) pravastatin 80 mg tablet 80 mg PO BEDTIME 07/30/23 11/18/23 albuterol sulfate 90 mcg/actuation 3 inh inhalation QID PRN shortness 08/14/23 11/18/23 aerosol inhaler of breath or wheezing metolazone 2.5 mg tablet 2.5 mg PO DAILY PRN for swelling 10/05/23 11/18/23 acetazolamide 125 mg tablet 125 mg PO BID 11/18/23 11/18/23 omeprazole 40 mg capsule,delayed 40 mg PO DAILY@0630 11/18/23 11/18/23 release potassium chloride 20 mEq 20 meq PO BEDTIME 11/18/23 11/18/23 tablet,extended release potassium chloride 20 mEq 40 meq PO DAILY 11/18/23 11/18/23 tablet,extended release umeclidinium 62.5 mcg/actuation 1 inh inhalation DAILY 11/18/23 11/18/23 blister powder for inhalation (Incruse Ellipta) Previous Rx's ?Medication ?Instructions ?Recorded torsemide 20 mg tablet 40 mg (2 x 20 mg) PO BID 30 days 06/19/23 #120 tabs Allergies Allergy/AdvReac Type Severity Reaction Status Date / Time No Known Allergies Allergy Verified 11/18/23 20:08 Review of Systems 2 Review of Systems: Yes all other systems are reviewed and are negative [facility] Past Medical History Medical History Hypokalemia Chronic a-fib Macrocytic anemia Partial small bowel obstruction Anemia CHF (congestive heart failure) Diabetes mellitus CKD (chronic kidney disease) HTN (hypertension) Biatrial enlargement Pulmonary hypertension Chronic heart failure with preserved ejection fraction (HFpEF) HLD (hyperlipidemia) Current use of anticoagulant therapy Surgical History Hx of total hip arthroplasty Hx of colonoscopy Hx of esophagogastroduodenoscopy History of nephrectomy Hx of hernia repair Family History Family History Father Cancer Mother No problems noted. Social History Social History Household Members: Spouse Housing: House Do you presently have visiting nurse or other home services: No Comment: refused bed alarm Patient Tobacco Use Status: Former Tobacco user Smoked in Last 30 Days: No Second Hand Smoke Exposure: No Use of substances other than those prescribed or required for medical reasons: No Advance Directives: Yes Advance Directives on File: Yes Advance Directives Date on File: 06/01/00 Do you have a plan to hurt others: No Plan service: No Physical Exam 2 Vital Signs: Vital Signs: Last Vital Signs Temp 97.8 F 11/19/23 01:03 Pulse 79 11/19/23 01:03 Resp 20 11/19/23 01:03 BP 102/40 L 11/19/23 01:03 Pulse Ox 100 11/19/23 00:48 O2 Del Method Room Air 11/19/23 00:48 O2 Flow Rate 2 11/19/23 00:48 Oxygen Flow Rate 2 11/18/23 20:06 BMI result Body Mass Index 28.5 Appearance: Alert. Oriented X3. No acute distress. Eyes: Pallor+++ ENT: Pharynx normal. Oral Mucosa moist Neck: Normal inspection. Neck supple. CVS: Irregularly irregular heart rate soft systolic ejection murmur. Pulses normal. Respiratory: No respiratory distress. Equal air entry bilateral, no wheezing/rales/rhonchi Abdomen: Soft and nontender. Bowel sounds are present, no mass palpable, no CVA tenderness rectal; black stool guaiac positive Skin: Skin warm and dry. Normal skin color. Normal skin turgor. Extremities: No lower extremity edema. No calf tenderness Neuro: Oriented X 3. No motor deficit. No sensory deficit.No cerebellar signs , cranial nerves II-XII intact Medications Administered Generic Name Dose Route Start Last Admin Trade Name Freq PRN Reason Stop Dose Admin Sodium Chloride 500 mls @ 500 mls/hr 11/19/23 01:00 11/19/23 01:06 Ns IV 11/19/23 01:59 500 mls/hr .Q1H MERT Administration Sodium Chloride 3 ml 11/19/23 00:00 11/19/23 00:26 0.9 % Sodium Chloride Flush 3 Ml Syringe IVFLUSH 3 ml QSHIFT MERT Administration Discontinued Medications Generic Name Dose Route Start Last Admin Trade Name Freq PRN Reason Stop Dose Admin Sodium Chloride 100 mls @ 100 mls/hr 11/18/23 20:56 11/18/23 21:38 Ns IV 11/18/23 21:55 100 mls/hr ONCE ONE Administration Phytonadione 2.5 mg/ Sodium 50.25 mls @ 50.25 mls/hr 11/18/23 22:15 11/18/23 23:55 Chloride IV 11/18/23 23:14 Infused ONCE ONE Infusion Albumin Human 100 mls @ 100 mls/hr 11/18/23 22:30 11/19/23 00:23 Kedbumin 25 % IV 11/19/23 00:29 100 mls/hr Q1H MERT Administration Insulin Human Lispro 12 unit 11/18/23 21:18 11/18/23 21:39 Insulin Lispro 100 Unit/Ml 3 Ml Vial SUBCUT 11/18/23 21:19 12 unit ONCE ONE Administration Pantoprazole Sodium 40 mg 11/18/23 22:02 11/18/23 22:15 Pantoprazole Sodium 40 Mg/10 Ml Vial IVPUSH 11/18/23 22:03 40 mg ONCE ONE Administration Medical Decision Making Medical Decision Making [facility] Narrative: Patient has significant melena with drop in H&H within 3 weeks admitted before with severe anemia received multiple blood transfusion endoscopy and colonoscopy did not reveal any active bleeding point , colonoscopy and endoscopy were negative for acute bleed in the past will admit patient for further evaluation started on Protonix patient is on Coumadin for AFib INR is 5.3 will give him 2.5 mg of vitamin K, patient is hemodynamically stable at this time. Differential Diagnosis Differential Diagnoses: The differential diagnosis associated with the presentation includes GI bleed/severe anemia/ weakness Admission/Observation Consideration of admission/observation: Escalation of care including admission/observation considered Consult Healthcare Provider Management of the patient was discussed with: Hospitalist Lab Data [facility] Lab Attestation statement: I reviewed the patient's lab results. 11/18/23 20:26 11/18/23 20:25 Labs: Lab Results 11/18/23 11/18/23 11/18/23 Range/Units 20:10 20:24 20:25 WBC (4.8-10.8) X10*3/uL RBC (4.60-5.80) X10*6/uL Hgb (14.0-18.0) g/dl Hct (42.0-52.0) % MCV (80.0-98.0) fL MCH (27.0-33.0) pg MCHC (31.0-36.0) g/dl RDW (11.0-16.0) % Plt Count (160-400) X10*3/uL MPV (9.4-12.4) fL Immature Gran % (Auto) (0.0-0.4) % Neut % (Auto) (45-73) % Lymph % (Auto) (20-40) % [place] % (Auto) (2-11) % Eos % (Auto) (0-4) % Baso % (Auto) (0-2) % Lymph # (Auto) (1.2-4.9) X10*3/uL [place] # (Auto) (0.1-1.2) X10*3/uL Eos # (Auto) (0.0-0.4) X10*3/uL Baso # (Auto) (0.0-0.2) X10*3/uL Abs Immat Gran (auto) (0.00-0.03) X10*3/uL Absolute Neuts (auto) (2.0-8.3) x10*3/uL Absolute Nucleated RBC (0.0-0.012) X10*3/uL Nucleated RBC % (auto) (0.0-0.2) /100WBC PT 64.1 H D (11.1-13.3) SEC INR 5.3 H* D (0.9-1.1) APTT 38.1 H (26.0-36.8) SEC Hold Blue Top SEE NOTE VBG pH (7.32-7.43) VBG pCO2 mmHg VBG pO2 mmHg VBG HCO3 (22-26) mmol/L VBG O2 Saturation % VBG Base Excess mmol/L Sodium 133 L (135-145) mmol/L Potassium 3.6 (3.3-5.1) mmol/L Chloride 90 L (96-108) mmol/L Carbon Dioxide 31 H (22-29) mmol/L Anion Gap 16 (12-20) BUN 87 H (9-16) mg/dL Creatinine 2.59 H (0.5-1.4) mg/dL Estim Creat Clear Calc 26.5 Estimated GFR 24 POC Glucose 390 H* (60-115) mg/dL Random Glucose 419 H* (60-115) mg/dL Calcium 8.6 D (8.4-10.2) mg/dL Magnesium 2.2 (1.6-2.6) mg/dL Total Bilirubin 0.4 (0.0-1.0) mg/dL AST 14 (5-37) U/L ALT 9 (0-40) U/L Alkaline Phosphatase 32 L (39-117) U/L Troponin I High Sens 14.9 D (<3.5-35.0) ng/L B-Natriuretic Peptide 45 (<100) pg/mL Total Protein 6.0 L (6.5-8.0) g/dL Albumin 3.4 L (3.5-5.0) g/dL Urine Color Urine Appearance Urine pH (5.0-9.0) Ur Specific [place] (1.005-1.025) Urine Protein (Neg-Trace) mg/dL Urine Glucose (UA) (Negative) mg/dL Urine Ketones (Negative) mg/dL Urine Blood (Negative) Urine Nitrite (Negative) Ur Leukocyte Esterase (Negative) Urine RBC (0-2) /HPF Urine WBC (0-5) /HPF Ur Squamous Epith Cells (0-2) /HPF Urine Bacteria (None Seen) Hyaline Casts (0-2) /LPF Stool Occult Blood (NEGATIVE) Influenza Type A (PCR) (Negative) Influenza Type B (PCR) (Negative) RSV RNA Qual (PCR) (Negative) SARS-CoV-2 RNA (RT-PCR) (Negative) Blood Type Antibody Screen Crossmatch 11/18/23 11/18/23 11/18/23 Range/Units 20:26 20:33 21:17 WBC 14.6 H (4.8-10.8) X10*3/uL RBC 1.99 L D (4.60-5.80) X10*6/uL Hgb 6.5 L* D (14.0-18.0) g/dl Hct 19.9 L* D (42.0-52.0) % MCV 100.0 H (80.0-98.0) fL MCH 32.7 (27.0-33.0) pg MCHC 32.7 (31.0-36.0) g/dl RDW 20.1 H (11.0-16.0) % Plt Count 375 D (160-400) X10*3/uL MPV 10.1 (9.4-12.4) fL Immature Gran % (Auto) 0.5 H (0.0-0.4) % Neut % (Auto) 81.8 H (45-73) % Lymph % (Auto) 9.0 L (20-40) % [place] % (Auto) 8.2 (2-11) % Eos % (Auto) 0.2 (0-4) % Baso % (Auto) 0.3 (0-2) % Lymph # (Auto) 1.3 (1.2-4.9) X10*3/uL [place] # (Auto) 1.2 (0.1-1.2) X10*3/uL Eos # (Auto) 0.0 (0.0-0.4) X10*3/uL Baso # (Auto) 0.1 (0.0-0.2) X10*3/uL Abs Immat Gran (auto) 0.08 H (0.00-0.03) X10*3/uL Absolute Neuts (auto) 11.9 H (2.0-8.3) x10*3/uL Absolute Nucleated RBC 0.040 H (0.0-0.012) X10*3/uL Nucleated RBC % (auto) 0.3 H (0.0-0.2) /100WBC PT (11.1-13.3) SEC INR (0.9-1.1) APTT (26.0-36.8) SEC Hold Blue Top VBG pH 7.36 (7.32-7.43) VBG pCO2 57 mmHg VBG pO2 41 mmHg VBG HCO3 32 H (22-26) mmol/L VBG O2 Saturation 59.0 % VBG Base Excess 6.4 mmol/L Sodium (135-145) mmol/L Potassium (3.3-5.1) mmol/L Chloride (96-108) mmol/L Carbon Dioxide (22-29) mmol/L Anion Gap (12-20) BUN (9-16) mg/dL Creatinine (0.5-1.4) mg/dL Estim Creat Clear Calc Estimated GFR POC Glucose (60-115) mg/dL Random Glucose (60-115) mg/dL Calcium (8.4-10.2) mg/dL Magnesium (1.6-2.6) mg/dL Total Bilirubin (0.0-1.0) mg/dL AST (5-37) U/L ALT (0-40) U/L Alkaline Phosphatase (39-117) U/L Troponin I High Sens (<3.5-35.0) ng/L B-Natriuretic Peptide (<100) pg/mL Total Protein (6.5-8.0) g/dL Albumin (3.5-5.0) g/dL Urine Color Urine Appearance Urine pH (5.0-9.0) Ur Specific [place] (1.005-1.025) Urine Protein (Neg-Trace) mg/dL Urine Glucose (UA) (Negative) mg/dL Urine Ketones (Negative) mg/dL Urine Blood (Negative) Urine Nitrite (Negative) Ur Leukocyte Esterase (Negative) Urine RBC (0-2) /HPF Urine WBC (0-5) /HPF Ur Squamous Epith Cells (0-2) /HPF Urine Bacteria (None Seen) Hyaline Casts (0-2) /LPF Stool Occult Blood (NEGATIVE) Influenza Type A (PCR) NEGATIVE (Negative) Influenza Type B (PCR) NEGATIVE (Negative) RSV RNA Qual (PCR) NEGATIVE (Negative) SARS-CoV-2 RNA (RT-PCR) NEGATIVE (Negative) Blood Type O Positive Antibody Screen NEGATIVE Crossmatch See Detail 11/18/23 11/18/23 Range/Units 21:25 21:41 WBC (4.8-10.8) X10*3/uL RBC (4.60-5.80) X10*6/uL Hgb (14.0-18.0) g/dl Hct (42.0-52.0) % MCV (80.0-98.0) fL MCH (27.0-33.0) pg MCHC (31.0-36.0) g/dl RDW (11.0-16.0) % Plt Count (160-400) X10*3/uL MPV (9.4-12.4) fL Immature Gran % (Auto) (0.0-0.4) % Neut % (Auto) (45-73) % Lymph % (Auto) (20-40) % [place] % (Auto) (2-11) % Eos % (Auto) (0-4) % Baso % (Auto) (0-2) % Lymph # (Auto) (1.2-4.9) X10*3/uL [place] # (Auto) (0.1-1.2) X10*3/uL Eos # (Auto) (0.0-0.4) X10*3/uL Baso # (Auto) (0.0-0.2) X10*3/uL Abs Immat Gran (auto) (0.00-0.03) X10*3/uL Absolute Neuts (auto) (2.0-8.3) x10*3/uL Absolute Nucleated RBC (0.0-0.012) X10*3/uL Nucleated RBC % (auto) (0.0-0.2) /100WBC PT (11.1-13.3) SEC INR (0.9-1.1) APTT (26.0-36.8) SEC Hold Blue Top VBG pH (7.32-7.43) VBG pCO2 mmHg VBG pO2 mmHg VBG HCO3 (22-26) mmol/L VBG O2 Saturation % VBG Base Excess mmol/L Sodium (135-145) mmol/L Potassium (3.3-5.1) mmol/L Chloride (96-108) mmol/L Carbon Dioxide (22-29) mmol/L Anion Gap (12-20) BUN (9-16) mg/dL Creatinine (0.5-1.4) mg/dL Estim Creat Clear Calc Estimated GFR POC Glucose (60-115) mg/dL Random Glucose (60-115) mg/dL Calcium (8.4-10.2) mg/dL Magnesium (1.6-2.6) mg/dL Total Bilirubin (0.0-1.0) mg/dL AST (5-37) U/L ALT (0-40) U/L Alkaline Phosphatase (39-117) U/L Troponin I High Sens (<3.5-35.0) ng/L B-Natriuretic Peptide (<100) pg/mL Total Protein (6.5-8.0) g/dL Albumin (3.5-5.0) g/dL Urine Color Yellow Urine Appearance Clear Urine pH 5.0 (5.0-9.0) Ur Specific [place] 1.015 (1.005-1.025) Urine Protein Negative (Neg-Trace) mg/dL Urine Glucose (UA) Negative (Negative) mg/dL Urine Ketones Negative (Negative) mg/dL Urine Blood Negative (Negative) Urine Nitrite Negative (Negative) Ur Leukocyte Esterase Trace H (Negative) Urine RBC 0-2 (0-2) /HPF Urine WBC 0-5 (0-5) /HPF Ur Squamous Epith Cells 0-2 (0-2) /HPF Urine Bacteria None Seen (None Seen) Hyaline Casts 3-5 (0-2) /LPF Stool Occult Blood POSITIVE (NEGATIVE) Influenza Type A (PCR) (Negative) Influenza Type B (PCR) (Negative) RSV RNA Qual (PCR) (Negative) SARS-CoV-2 RNA (RT-PCR) (Negative) Blood Type Antibody Screen Crossmatch Independent Interpretation I performed an independent interpretation of an: EKG Interpretation: Atrial fibrillation with frequent PVCs nonspecific STT wave changes no acute ST elevation heart rate 87 beats per minute Critical Care Time Critical Care Time Critical Care Time: Yes Total Critical Care Time: 35 Attestation: The patient was critically ill with a high probability of imminent or life threatening deterioration. I spent greater than ?40??minutes of discontinuous time evaluating the patient,delivering critical care at the bedside, discussing and evaluating pertinent data with consultants. Critical care time does not include time spent performing separately billable procedures or teaching. Total time spent performing critical care was 35???minutes. Discharge Plan Discharge Clinical Impression: Severe anemia, Chronic a-fib, Acute GI bleeding, Melena Patient Disposition: Admitted As Inpatient
[2023-11-18 21:31] LABS: OBS Int Ctl Valid YES; OBS1 POSITIVE (NEGATIVE)
[2023-11-18 21:35] LABS: Partial Thromboplastin Time 38.1 SEC (26.0-36.8)
[2023-11-18 21:39] LABS: Prothrombin Time 64.1 SEC (11.1-13.3)
[2023-11-18] MEDS: Insulin Lispro 100 UNIT/ML 3 ML VIAL 12 UNIT SUBCUT (21:39)
[2023-11-18 21:43] LABS: INTERNATIONAL NORM RATIO 5.3 (0.9-1.1)
[2023-11-18 21:44] VITALS: BP 92/51; PULSE 89; RESP 19; TEMP 36.7
--- NOTE | 2023-11-18 21:47 | PC.NURSE ---
INR high 5.3, provider aware, 1st unit of blood running now.
[2023-11-18 21:52] LABS: Appearance Urine Clear; Color Urine Yellow; Glucose Urine UA Negative (Negative); Leukocyte Esterase Urine Trace (Negative); Nitrite Urine Negative (Negative); Specific Gravity - Urine 1.015 (1.005-1.025); UMIC TRIGGER UACC YES; Urine Blood Negative (Negative); Urine Ketones Negative (Negative); Urine Protein Negative (Neg-Trace)
[2023-11-18 21:57] LABS: Bacteria Urine None Seen (None Seen); RBC Urine 0-2 /HPF (0-2); Squamous Epithelial Cell Urine 0-2 /HPF (0-2); WBC Urine 0-5 /HPF (0-5)
[2023-11-18 22:00] VITALS: BP 107/52; PULSE 83; RESP 18; TEMP 36.6
[2023-11-18 22:01] LABS: Influenza A PCR NEGATIVE (Negative); Influenza B PCR NEGATIVE (Negative); Resp Syncy Virus RNA Qual PCR NEGATIVE (Negative); SARS COV2 PCR INHOUSE NEGATIVE (Negative)
[2023-11-18] MEDS: Pantoprazole Sodium 40 MG/10 ML VIAL IVPUSH (22:15)
--- NOTE | 2023-11-18 22:16 | P.HPHOSP_ITS ---
History of Present Illness Date of Service: 11/18/23 Chief Complaint: Weakness This is a 73-year-old male with pertinent history of congestive heart failure with preserved ejection fraction, chronic hypoxic respiratory failure due to COPD on 2 L supplemental oxygen, ngb-gzaerdz-ywiyehxzs diabetes mellitus, permanent atrial fibrillation on Coumadin, mixed hyperlipidemia, hypertension, chronic kidney disease stage III who presents to the emergency department for evaluation of generalized weakness. Patient states he has been feeling weak and has generalized fatigability. He noticed blood in stools 1 day prior to presentation. It was painless and without any abdominal discomfort. No hematemesis. No fever, chills. Patient was previously admitted in 08/19/2023 for heme-positive stools where he required 4 unit PRBC transfusion during hospitalization. Patient is on Coumadin for AFib and is compliant with it. No chest discomfort, palpitations, shortness of breath, changes in urinary habits. In the emergency department, hemoglobin was found to be 6.5. INR found to be elevated. Vitamin K and 2 unit PRBC transfusion ordered. Review of Systems 2 Constitutional: Constitutional: Reports fatigue, Reports malaise and Reports weakness Cardiovascular: Cardiovascular: Reports no additional cardiovascular complaints Respiratory: Respiratory: Reports no additional respiratory complaints Gastrointestinal: Gastrointestinal: Reports hematochezia Genitourinary: Genitourinary: Reports no additional male genitourinary complaints Neurologic: Reports weakness Endocrine: Endocrine: Reports fatigue FOR[facility]LY [facility] Medical History Hypokalemia Chronic a-fib Macrocytic anemia Partial small bowel obstruction Anemia CHF (congestive heart failure) Diabetes mellitus CKD (chronic kidney disease) HTN (hypertension) Biatrial enlargement Pulmonary hypertension Chronic heart failure with preserved ejection fraction (HFpEF) HLD (hyperlipidemia) Current use of anticoagulant therapy Family History Father Cancer Mother No problems noted. Surgical History Hx of total hip arthroplasty Hx of colonoscopy Hx of esophagogastroduodenoscopy History of nephrectomy Hx of hernia repair Social History Household Members: Spouse Housing: House Do you presently have visiting nurse or other home services: No Comment: refused bed alarm Patient Tobacco Use Status: Former Tobacco user Smoked in Last 30 Days: No Second Hand Smoke Exposure: No Use of substances other than those prescribed or required for medical reasons: No Advance Directives: Yes Advance Directives on File: Yes Advance Directives Date on File: 06/01/00 Do you have a plan to hurt others: No Plan service: No Meds Allergies Allergy/AdvReac Type Severity Reaction Status Date / Time No Known Allergies Allergy Verified 11/18/23 20:08 Active Medications: Current Medications Phytonadione 2.5 mg/ Sodium (Chloride) 50.25 mls @ 50.25 mls/hr IV ONCE ONE Stop: 11/18/23 23:14 Home Medications ?Medication ?Instructions ?Recorded ?Confirmed ?Last Taken ?Type ascorbic acid (vitamin C) 500 mg 500 mg PO DAILY 05/01/20 10/05/23 11/18/23 History tablet ezetimibe 10 mg tablet 10 mg PO DAILY 05/01/20 10/05/23 11/18/23 History ferrous sulfate 325 mg (65 mg 325 mg PO DAILY 05/01/20 10/05/23 11/18/23 History iron) tablet metformin 500 mg tablet 500 mg PO BIDWM 05/01/20 10/05/23 11/18/23 History tiotropium bromide 18 mcg capsule 18 mcg PO DAILY 05/01/20 10/05/23 11/18/23 History with inhalation device cyanocobalamin (vitamin B-12) 1,000 mcg PO DAILY 12/15/22 10/05/23 11/18/23 History 1,000 mcg tablet warfarin 2.5 mg tablet 2.5 mg PO SUTUTHSA 04/03/23 11/06/23 11/18/23 History warfarin 5 mg tablet 5 mg PO MOWEFR 05/22/23 11/06/23 11/18/23 History digoxin 125 mcg (0.125 mg) tablet 125 mcg PO Q48H 07/30/23 10/05/23 11/18/23 History fluticasone furoate 100 1 inh inhalation DAILY 07/30/23 10/05/23 11/18/23 History mcg-vilanterol 25 mcg/dose inhalation powder (Breo Ellipta) pravastatin 80 mg tablet 80 mg PO BEDTIME 02/10/05/23 11/18/23 History albuterol sulfate 90 mcg/actuation 3 inh inhalation QID PRN shortness 08/14/23 10/05/23 11/18/23 History aerosol inhaler of breath or wheezing metolazone 2.5 mg tablet 2.5 mg PO DAILY PRN for swelling 10/05/23 10/05/23 11/18/23 History Physical Exam 2 Vital Signs and Narrative: Vital Signs: Last Vital Signs Temp 97.9 F 11/18/23 22:00 Pulse 83 11/18/23 22:00 Resp 18 11/18/23 22:00 BP 107/52 L 11/18/23 22:00 Pulse Ox 100 11/18/23 20:06 O2 Del Method Nasal Cannula 11/18/23 20:06 Oxygen Flow Rate 2 11/18/23 20:06 BMI result Body Mass Index 28.5 Middle-aged male lying in bed in no distress Neck supple, no JVD Irregularly irregular, S1-S2 heard Regular breath sounds bilaterally, no wheezing or crackles appreciated Abdomen soft nontender, no guarding, no rigidity Patient is awake, alert and oriented to self, place, time and person ; no focal motor deficit Psych: Normal mood No pedal edema Results Labs 11/18/23 20:26 11/18/23 20:25 Labs: Laboratory Results - last 24 hr 11/18/23 11/18/23 11/18/23 20:10 20:24 20:25 MCV MCH MCHC RDW Plt Count MPV Immature Gran % (Auto) Neut % (Auto) Lymph % (Auto) [place] % (Auto) Eos % (Auto) Baso % (Auto) Lymph # (Auto) [place] # (Auto) Eos # (Auto) Baso # (Auto) Abs Immat Gran (auto) Absolute Neuts (auto) Absolute Nucleated RBC Nucleated RBC % (auto) PT 64.1 H D INR 5.3 H* D APTT 38.1 H Hold Blue Top SEE NOTE VBG pH VBG pCO2 VBG pO2 VBG HCO3 VBG O2 Saturation VBG Base Excess Anion Gap 16 Estim Creat Clear Calc 26.5 Estimated GFR 24 POC Glucose 390 H* Random Glucose 419 H* Calcium 8.6 D Magnesium 2.2 Total Bilirubin 0.4 AST 14 ALT 9 Alkaline Phosphatase 32 L Troponin I High Sens 14.9 D B-Natriuretic Peptide 45 Total Protein 6.0 L Albumin 3.4 L Urine Color Urine Appearance Urine pH Ur Specific [place] Urine Protein Urine Glucose (UA) Urine Ketones Urine Blood Urine Nitrite Ur Leukocyte Esterase Urine RBC Urine WBC Ur Squamous Epith Cells Urine Bacteria Hyaline Casts Stool Occult Blood Influenza Type A (PCR) Influenza Type B (PCR) RSV RNA Qual (PCR) SARS-CoV-2 RNA (RT-PCR) Blood Type Antibody Screen Crossmatch 11/18/23 11/18/23 11/18/23 20:26 20:33 21:17 MCV 100.0 H MCH 32.7 MCHC 32.7 RDW 20.1 H Plt Count 375 D MPV 10.1 Immature Gran % (Auto) 0.5 H Neut % (Auto) 81.8 H Lymph % (Auto) 9.0 L [place] % (Auto) 8.2 Eos % (Auto) 0.2 Baso % (Auto) 0.3 Lymph # (Auto) 1.3 [place] # (Auto) 1.2 Eos # (Auto) 0.0 Baso # (Auto) 0.1 Abs Immat Gran (auto) 0.08 H Absolute Neuts (auto) 11.9 H Absolute Nucleated RBC 0.040 H Nucleated RBC % (auto) 0.3 H PT INR APTT Hold Blue Top VBG pH 7.36 VBG pCO2 57 VBG pO2 41 VBG HCO3 32 H VBG O2 Saturation 59.0 VBG Base Excess 6.4 Anion Gap Estim Creat Clear Calc Estimated GFR POC Glucose Random Glucose Calcium Magnesium Total Bilirubin AST ALT Alkaline Phosphatase Troponin I High Sens B-Natriuretic Peptide Total Protein Albumin Urine Color Urine Appearance Urine pH Ur Specific [place] Urine Protein Urine Glucose (UA) Urine Ketones Urine Blood Urine Nitrite Ur Leukocyte Esterase Urine RBC Urine WBC Ur Squamous Epith Cells Urine Bacteria Hyaline Casts Stool Occult Blood Influenza Type A (PCR) NEGATIVE Influenza Type B (PCR) NEGATIVE RSV RNA Qual (PCR) NEGATIVE SARS-CoV-2 RNA (RT-PCR) NEGATIVE Blood Type O Positive Antibody Screen NEGATIVE Crossmatch See Detail 11/18/23 11/18/23 21:25 21:41 MCV MCH MCHC RDW Plt Count MPV Immature Gran % (Auto) Neut % (Auto) Lymph % (Auto) [place] % (Auto) Eos % (Auto) Baso % (Auto) Lymph # (Auto) [place] # (Auto) Eos # (Auto) Baso # (Auto) Abs Immat Gran (auto) Absolute Neuts (auto) Absolute Nucleated RBC Nucleated RBC % (auto) PT INR APTT Hold Blue Top VBG pH VBG pCO2 VBG pO2 VBG HCO3 VBG O2 Saturation VBG Base Excess Anion Gap Estim Creat Clear Calc Estimated GFR POC Glucose Random Glucose Calcium Magnesium Total Bilirubin AST ALT Alkaline Phosphatase Troponin I High Sens B-Natriuretic Peptide Total Protein Albumin Urine Color Yellow Urine Appearance Clear Urine pH 5.0 Ur Specific [place] 1.015 Urine Protein Negative Urine Glucose (UA) Negative Urine Ketones Negative Urine Blood Negative Urine Nitrite Negative Ur Leukocyte Esterase Trace H Urine RBC 0-2 Urine WBC 0-5 Ur Squamous Epith Cells 0-2 Urine Bacteria None Seen Hyaline Casts 3-5 Stool Occult Blood POSITIVE Influenza Type A (PCR) Influenza Type B (PCR) RSV RNA Qual (PCR) SARS-CoV-2 RNA (RT-PCR) Blood Type Antibody Screen Crossmatch Imaging Radiologist's Impressions: Impressions Chest X-Ray 11/18/23 20:45 IMPRESSION: Unremarkable examination. Assessment and Plan (1) Acute GI bleeding: Status: Acute Plan This is a 73-year-old male with pertinent history of congestive heart failure with preserved ejection fraction, chronic hypoxic respiratory failure due to COPD on 2 L supplemental oxygen, rgo-skquypf-nrldjkmuo diabetes mellitus, permanent atrial fibrillation on Coumadin, mixed hyperlipidemia, hypertension, chronic kidney disease stage III who presents to the emergency department for evaluation of generalized weakness. #. Acute GI bleed: Will admit patient with cardiac monitoring and initiate IV Protonix. Will keep patient NPO and consult Gastroenterology. #. Acute blood loss anemia in the setting of above: 2 unit PRBC ordered in the ER. Continue to monitor H&H #. Acute kidney injury on chronic kidney disease stage III: Monitor creatinine and urine output with PRBC transfusion and colloid resuscitation. Avoid nephrotoxins #. Reactive leukocytosis #. Supratherapeutic INR: Given vitamin K in the ER. Continue to monitor #. Permanent atrial fibrillation: Rate controlled in the ER. Hold Eliquis in the setting of above #. Chronic hypoxic respiratory failure due to COPD: On baseline 2 L supplemental oxygen. No exacerbation during admission. Continue home inhalers #. Congestive heart failure with preserved EF: Hold diuresis in the setting of acute GI bleed and RAHEEM. #. Xzu-ymdzgzn-bkvamkbzr diabetes mellitus with hyperglycemia: Initiating Accu-Cheks with sliding scale insulin every 6 hours while NPO #. Mixed hyperlipidemia: On statin Med rec pending DVT prophylaxis: Mechanical Full code Admit as inpatient and will require two night minimum hospital stay for close monitoring of hemodynamics, monitoring of hemoglobin/hematocrit, monitoring of kidney function, monitoring of INR (as above), which is not possible in a lesser acute setting. Specialist consult pending Quality Stroke Does the patient have a stroke diagnosis?: No VTE Prior VTE?: No VTE Risk Level:: Medical - moderate - high VTE Device Contraindication: N/A - Device Ordered VTE Drug Contraindication: Treatment Not Indicated
[2023-11-18] MEDS: Phytonadione (Vit K1) 2.5 MG in 0.9 % Sodium Chloride 50 ML 50.25 MG IV (22:28)
--- NOTE | 2023-11-18 22:41 | PHA.MEDREC ---
Addendum entered by Chuck Mcnamara 11/19/23 08:18: Talked to patient this AM. Patient states he takes digoxin 125 mcg SUTUTHSA@13467, warfarin 2.5 mg MOTH@1800, and warfarin 5 mg SUTUWEFRSA@1800. Patient also states Spiriva was replaced with Incruse Ellipta. Original Note: Pharmacy Consult ? Medication Reconciliation Pharmacy has completed the medication reconciliation.
[2023-11-18 22:47] VITALS: BP 114/56; PULSE 90; RESP 22; TEMP 36.7; O2SAT 100
[2023-11-18 22:55] LABS: Glucose, Whole Blood 315 mg/dL (60-115)
--- NOTE | 2023-11-18 23:18 | PC.NURSE ---
Patient's POC 315, Dr. Maciel made aware, report given to Evelia YOUNGER aware of elevated POC, additional unit of blood ordered, and albumin to be hung.
[2023-11-19] VITALS (19 sets, daily range): BP systolic 82–121; BP diastolic 40–58; PULSE 61–107; RESP 14–26; TEMP 36–36.8; O2SAT 98–100
[2023-11-19] MEDS: Albumin Human 25 % 100 ML IV ×4 (00:23→05:42)
[2023-11-19] MEDS: 0.9 % Sodium Chloride Flush 3 ML SYRINGE IVFLUSH ×2 (00:26→20:59)
[2023-11-19] MEDS: 0.9 % Sodium Chloride 500 ML IV (01:06)
--- NOTE | 2023-11-19 03:21 | PC.NURSE ---
report given to So YOUNGER
--- NOTE | 2023-11-19 03:54 | PC.NURSE ---
This RN assumed pt care @ 0320 Pt ca&ox3, no signs of acute distress. Plan of care ongoing.
--- NOTE | 2023-11-19 04:46 | PC.NURSE ---
Dr Maciel notified and aware pt still having bloody stools and pts b/p 82/55. New orders of Albumin and RBC. Plan of care ongoing.
[2023-11-19 04:58] LABS: Glucose, Whole Blood 170 mg/dL (60-115)
--- NOTE | 2023-11-19 05:35 | PM.EVENT ---
Event Note Date of Service: 11/19/23 Event Note: Patient with multiple bed he bowel movements as per RN. Will order additional 1 unit PRBC. Resuscitating with colloids and crystalloids. Obtaining CT abdomen/pelvis. Time Spent With Patient Time: Total time managing care of this patient today ____ minutes.
--- NOTE | 2023-11-19 05:56 | PC.NURSE ---
Pt reporting 5/[address] Maciel notified and aware. No new orders at this time. Plan of care ongoing.
[2023-11-19] MEDS: Pantoprazole Sodium 40 MG/10 ML VIAL IVPUSH ×2 (06:47→20:58)
--- NOTE | 2023-11-19 06:51 | PC.NURSE ---
Pt ca&ox3, no signs of distress. Pt medicated per mar. Plan of care ongoing.
--- NOTE | 2023-11-19 07:53 | PC.NURSE ---
multiple episodes of bright red diarrhea since resuming care of pt at 0645. pt denies abd pain. no signs of n/v detected. 2nd unit of PRBC continues to infuse @ 125mls/hr at this time. pt tolerating well. no signs of complications/reactions noted. pt remains on 2L [place] which is his baseline. no sob/wob noted. respirations even/unlabored. pt currently going to CT at this time. admission worksheet complete. transport notified/aware that pt will be ready for transport once scan is completed. plan of care ongoing.
--- NOTE | 2023-11-19 08:18 | P.CNGI_ITS ---
History of Present Illness Data of Consult Service Date: 11/19/23 Requesting physician: Rosa Maciel Primary Care Provider: Unknown Physician HPI Reason for consult: GI Bleeding, acute on chronic anemia 73 YM with CHF with preserved ejection fraction, chronic hypoxic respiratory failure due to COPD on 2 L supplemental oxygen, [id number] diabetes mellitus, permanent atrial fibrillation on Coumadin, mixed hyperlipidemia, hypertension, chronic kidney disease stage III seen at [facility] on 11/18/23 for evaluation of generalized weakness. Patient states he has been feeling weak and has generalized fatigability. He noticed blood in stools 1 day prior to presentation. It was painless and without any abdominal discomfort. No hematemesis. No fever, chills. Patient was previously admitted in 08/19/2023 for heme-positive stools where he required 4 unit PRBC transfusion during hospitalization. Patient is on Coumadin for AFib and is compliant with it. No chest discomfort, palpitations, shortness of breath, changes in urinary habits. In the emergency department, hemoglobin was found to be 6.5. INR found to be elevated at 5.3. Vitamin K and 2 unit PRBC transfusion order and repeat INR was 1.6 PAST GI HISTORY BY REVIEW OF MEDICAL RECORDS: 08/03/23 EGD AND COLONOSCOPY SHOWED: Endoscopy Findings: STOMACH: Moderate gastric erythema - biopsies obtained from the antrum to check for H Pylori. Grade 2 flap valve on retroflexed examination of the cardia. DUODENUM: Normal bulb and a 1 x 2.5 cms elongated benign appearing nodule in the proximal descending duodenum. Biopsies were obtained. Colonoscopy Findings: One small and one large polyps removed. Moderate to severe diverticulosis seen in the entire colon Moderate hemorrhoids on antegrade exam. Plan: Ok to discharge patient in the am on oral iron. Repeat Colonoscopy is not indicated due to multiple comorbidities. Above findings were reviewed with the patient. BIOPSIES SHOWED: A. Small bowel, biopsy: Small bowel mucosa with preserved villous architecture and patchy increase in intraepithelial lymphocytes (see comment) B. Duodenum, nodule, biopsy: Superficial fragments of duodenal mucosa within normal limits; preserved villous architecture and no increase in intraepithelial lymphocytes. C. Stomach, antrum, biopsy: Gastric antral mucosa with mild chronic inactive gastritis and intestinal metaplasia (incomplete); negative for Helicobacter pylori and dysplasia. D. Colon, transverse, polypectomy: Tubular adenoma, multiple fragments; negative for high-grade dysplasia. E. Rectum, polypectomy: Tubular adenoma (1); negative for high-grade dysplasia; hyperplastic polyp (1). COMMENT (A): These findings raise the possibility of celiac disease; however other pathologic processes, including H. pylori gastritis, peptic duodenitis, food allergies other than celiac disease, tropical sprue, viral enteritis, injury caused by drugs, autoimmune enteropathy, immunodeficiencies and Crohn's disease can induce intraepithelial lymphocytosis with or without associated architectural changes. In many cases no definite cause is identified. Review of Systems 2 Constitutional: Constitutional: Reports fatigue, Reports malaise and Reports weakness Cardiovascular: Cardiovascular: Reports no additional cardiovascular complaints Respiratory: Respiratory: Reports no additional respiratory complaints Gastrointestinal: Gastrointestinal: Reports hematochezia Genitourinary: Genitourinary: Reports no additional male genitourinary complaints Neurologic: Reports weakness Endocrine: Endocrine: Reports fatigue PMFSH Past Medical History Medical History (Updated 01/05/24 @ 13:48 by Donny Dodd MD) Chronic a-fib Severe anemia Hypokalemia Macrocytic anemia Partial small bowel obstruction Anemia CHF (congestive heart failure) Diabetes mellitus CKD (chronic kidney disease) HTN (hypertension) Biatrial enlargement Pulmonary hypertension Chronic heart failure with preserved ejection fraction (HFpEF) HLD (hyperlipidemia) Current use of anticoagulant therapy Family History Family History Father Cancer Mother No problems noted. Surgical History Surgical History Hx of total hip arthroplasty Hx of colonoscopy Hx of esophagogastroduodenoscopy History of nephrectomy Hx of hernia repair Social History Social History Household Members: Significant Other Housing: House Do you presently have visiting nurse or other home services: No Comment: refused bed alarm Patient Tobacco Use Status: Former Tobacco user Second Hand Smoke Exposure: No Advance Directives Date on File: 06/01/00 service: No Meds Allergies Allergy/AdvReac Type Severity Reaction Status Date / Time No Known Allergies Allergy Verified 01/05/24 13:38 Active Medications: Current Medications Acetaminophen (Acetaminophen 325 Mg Tablet) 650 mg PO Q6H PRN PRN Reason: Pain, Mild (Pain Scale 1-3), fever or headache Albuterol Sulfate (Albuterol Sulfate 90 Mcg 8 Gm Inhaler) 2 puff INHALE QID PRN PRN Reason: shortness of breath or wheezing Calcium Carbonate (Calcium Carbonate 750 Mg Tab.Chew) 750 mg PO Q4H PRN PRN Reason: Heartburn Cyanocobalamin (Cyanocobalamin (Vitamin B-12) 1,000 Mcg Tablet) 1,000 mcg PO DAILY [facility] Digoxin (Digoxin 0.125 Mg Tablet) 0.125 mg PO Q48H [facility] Ezetimibe (Ezetimibe 10 Mg Tablet) 10 mg PO DAILY [facility] Fluticasone/Vilanterol (Fluticasone/Vilanterol 100/25 Blst.W.Dev) 1 puff INHALE DAILY [facility] Glucose (Glucose Gel 15 Gm Gel..Gram.) 15 gm PO Q15M PRN; Protocol PRN Reason: per Hypoglycemia Standing Ord. Dextrose (D10) 250 mls @ 750 mls/hr IV Q15M PRN; Protocol PRN Reason: per Hypoglycemia Standing Ord. Magnesium Hydroxide (Milk Of Magnesia 30 Ml Oral.Susp) 30 ml PO DAILY PRN PRN Reason: Constipation Melatonin (Melatonin 3 Mg Tablet) 6 mg PO BEDTIME PRN PRN Reason: Insomnia Non-Formulary Medication (Umeclidinium [Incruse Ellipta]) 1 inhalation INHALE DAILY [facility] Pantoprazole Sodium (Pantoprazole Sodium 40 Mg/10 Ml Vial) 40 mg IVPUSH BID@0630,1630 [facility] Last Admin: 11/19/23 06:47 Dose: 40 mg Pravastatin Sodium (Pravastatin Sodium 80 Mg Tablet) 80 mg PO BEDTIME [facility] Sodium Chloride (0.9 % Sodium Chloride Flush 3 Ml Syringe) 3 ml IVFLUSH QSHIFT [facility] Last Admin: 11/19/23 07:18 Dose: Not Given Home Medications ?Medication ?Instructions ?Recorded ?Confirmed ?Last Taken ?Type ascorbic acid (vitamin C) 500 mg 500 mg PO DAILY 05/01/20 12/02/23 11/18/23 History tablet ezetimibe 10 mg tablet 10 mg PO DAILY 05/01/20 12/02/23 11/18/23 History metformin 500 mg tablet 500 mg PO BIDWM 05/01/20 12/02/23 11/18/23 History cyanocobalamin (vitamin B-12) 1,000 mcg PO DAILY 12/15/22 12/02/23 11/18/23 History 1,000 mcg tablet digoxin 125 mcg (0.125 mg) tablet 125 mcg PO SUTUTHSA@2100 07/30/23 12/02/23 11/18/23 History fluticasone furoate 100 1 inh inhalation DAILY 07/30/23 12/02/23 11/18/23 History mcg-vilanterol 25 mcg/dose inhalation powder (Breo Ellipta) pravastatin 80 mg tablet 80 mg PO BEDTIME 07/30/23 12/02/23 11/18/23 History albuterol sulfate 90 mcg/actuation 2 inh inhalation QID PRN shortness 08/14/23 12/02/23 11/18/23 History aerosol inhaler of breath or wheezing metolazone 2.5 mg tablet 2.5 mg PO DAILY PRN for swelling 10/05/23 12/02/23 11/18/23 History omeprazole 40 mg capsule,delayed 40 mg PO DAILY@0630 11/18/23 12/02/23 11/18/23 History release potassium chloride 20 mEq 40 meq PO DAILY 11/18/23 12/02/23 11/18/23 History tablet,extended release umeclidinium 62.5 mcg/actuation 1 inh inhalation DAILY 11/18/23 12/02/23 11/18/23 History blister powder for inhalation (Incruse Ellipta) tiotropium bromide 18 mcg capsule 1 cap inhalation DAILY 01/05/24 Unknown History with inhalation device (Spiriva with HandiHaler) Physical Exam 2 Vital Signs: Vital Signs: Last Vital Signs Temp 97.7 F 11/19/23 07:11 Pulse 73 11/19/23 07:11 Resp 26 H 11/19/23 07:11 BP 111/45 L 11/19/23 07:11 Pulse Ox 100 11/19/23 07:11 O2 Del Method Nasal Cannula 11/19/23 07:11 O2 Flow Rate 2 11/19/23 07:11 Oxygen Flow Rate 2 11/18/23 20:06 BMI result Body Mass Index 28.5 Const: Other: General awake alert x3, in no acute distress. Neck no JVD. CVS regular rate rhythm, Respiratory lungs clear to auscultation, no respiratory distress Gastrointestinal abdomen soft,bowel sounds audible, no guarding , no rigidity. Extremities no edema. Neuro non focal , speech clear. Skin no rash Appropriate affect Results Labs 11/21/23 06:00 11/21/23 06:00 Labs: Short CBC 11/18/23 Range/Units 20:26 WBC 14.6 H (4.8-10.8) X10*3/uL Hgb 6.5 L* D (14.0-18.0) g/dl Hct 19.9 L* D (42.0-52.0) % Plt Count 375 D (160-400) X10*3/uL BMP 11/18/23 20:25 Sodium 133 L Potassium 3.6 Chloride 90 L Carbon Dioxide 31 H BUN 87 H Creatinine 2.59 H Calcium 8.6 D Liver Function 11/18/23 Range/Units 20:25 Total Bilirubin 0.4 (0.0-1.0) mg/dL AST 14 (5-37) U/L ALT 9 (0-40) U/L Alkaline Phosphatase 32 L (39-117) U/L Albumin 3.4 L (3.5-5.0) g/dL Urine 11/18/23 Range/Units 21:41 Urine Color Yellow Urine Appearance Clear Urine pH 5.0 (5.0-9.0) Ur Specific [place] 1.015 (1.005-1.025) Urine Protein Negative (Neg-Trace) mg/dL Urine Glucose (UA) Negative (Negative) mg/dL Assessment and Plan (1) Melena: Status: Resolved (2) Severe anemia: Status: Inactive (3) Acute GI bleeding: Status: Resolved Plan 73 YM with chronic atrial fibrillation on anticoagulation, essential hypertension, congestive heart failure with preserved ejection fraction, venous stasis, mixed hyperlipidemia, [id number] diabetes mellitus, chronic hypoxemic respiratory failure due to COPD admitted [place] [facility] [place]23 with LGIB and acute on chronic anemia in the setting of a supratherapeutic INR which has been corrected.? Pt reports a hx of chronic anemia and has been taking PO iron and vitamin C for the past several years. He reports being followed at [facility] by Heme-Onc for myelodysplasia and gets blood transfusions every 2-3 months. Pt had 3 dark/tarry BMs since arrival to the floor. Repeat CBC post transfusion was 6.4 and 18.9 EGD and colon in 07/2023 showed severe sparrow-diverticulosis and no other potential source for anemia RECOMMENDATIONS: 1. Agree with transfusion of additional 2 units of PRBC and monitor CBC 2. Continue IV PPI. 3. Tagged RBC scan today (Pt is not a candidate for CT angio due to elevated Creatinine) If RBC scan is positive for colonic source of bleeding, patient will need to be transferred to a tertiary care facility for angiographic control of the bleeding ADDENDUM: TAGGED RBC SCAN SHOWED: No abnormal accumulations of radioisotope are seen in the abdomen. ADDENDUM FROM DISCHARGE SUMMARY: Hospital Course Admitted to telemetry an INR was followed. Normalize secondary to vitamin K. anemia responded well to 2 units of packed red cells. Seen in consultation by GI; previously colonoscopy and upper endoscopy in July of 2023. GI felt this was related to a diverticular bleed secondary to hyperprothrombinemia. A GI bleeding scan was done without any acute abnormalities. Patient's diet was advanced and his stool remain normal correlating with his normal INR. Patient will be discharged off warfarin and will follow up with Cardiology. GI recommendation is 10 days off warfarin and then restart. Given this episode hyperprothrombinemia question DOAC in future. Procedures Date of Service Date of Service: 02/18/24
--- NOTE | 2023-11-19 08:34 | PC.NURSE ---
pt transported upstairs w/ transport as well as being accompanied this RN d/t current infusing blood products. pt resting in 487 in no apparent distress. CARIAS Arango notified/aware of pt's arrival.
--- NOTE | 2023-11-19 09:38 | MHC.CM.PN ---
IMM 11/18. Pt lives at home with his /HCP. Pt has home O2 through [facility]. Pts or daughter will transport him home at discharge. HCP on file and verified. PCP: Dr. Grayson Berrios
[2023-11-19 10:41] LABS: INTERNATIONAL NORM RATIO 1.6 (0.9-1.1); Prothrombin Time 19.5 SEC (11.1-13.3)
[2023-11-19 10:53] LABS: Anion Gap 15 (12-20); Blood Urea Nitrogen 78 mg/dL (9-16); Calcium 8.1 mg/dL (8.4-10.2); Carbon Dioxide 31 mmol/L (22-29); Chloride 94 mmol/L (96-108); Estimated Glomerular Filt Rate 28; Glucose Random 308 mg/dL (60-115); Potassium 2.9 mmol/L (3.3-5.1); Sodium 137 mmol/L (135-145)
--- NOTE | 2023-11-19 11:13 | P.PNIM_ITS ---
Subjective Subjective Date of Service: 11/19/23 Interval History: Admitted overnight due to generalized weakness, 1 day history of black stools. Patient had melanotic stool this morning complaining of mid abdominal pain, denies fever, no chills, no nausea, no hematemesis, no epigastric pain, no fevers, no chills, no shortness a breath, chest pain or palpitations. Review of Systems All other system reviewed and negative. Physical Exam 2 Vital Signs: Vital Signs: Last Vital Signs Temp 97 F 11/19/23 09:10 Pulse 69 11/19/23 09:10 Resp 20 11/19/23 09:10 BP 112/50 L 11/19/23 09:10 Pulse Ox 100 11/19/23 09:10 O2 Del Method Room Air 11/19/23 09:10 O2 Flow Rate 2 11/19/23 07:11 Oxygen Flow Rate 2 11/18/23 20:06 BMI result Body Mass Index 28.5 Const: Other: General awake alert x3, in no acute distress. Neck no JVD. CVS regular rate rhythm, Respiratory lungs clear to auscultation, no respiratory distress Gastrointestinal abdomen soft,bowel sounds audible, no guarding , no rigidity. Extremities no edema. Neuro non focal , speech clear. Skin no rash Appropriate affect Objective Data Active Medications Acetaminophen (Acetaminophen 325 Mg Tablet) 650 mg PO Q6H PRN PRN Reason: Pain, Mild (Pain Scale 1-3), fever or headache Albuterol Sulfate (Albuterol Sulfate 90 Mcg 8 Gm Inhaler) 2 puff INHALE QID PRN PRN Reason: shortness of breath or wheezing Calcium Carbonate (Calcium Carbonate 750 Mg Tab.Chew) 750 mg PO Q4H PRN PRN Reason: Heartburn Cyanocobalamin (Cyanocobalamin (Vitamin B-12) 1,000 Mcg Tablet) 1,000 mcg PO DAILY [facility] Digoxin (Digoxin 0.125 Mg Tablet) 0.125 mg PO SuTuThSa@2100 [facility] Ezetimibe (Ezetimibe 10 Mg Tablet) 10 mg PO DAILY [facility] Fluticasone/Vilanterol (Fluticasone/Vilanterol 100/25 Blst.W.Dev) 1 puff INHALE RDAILY [facility] Glucose (Glucose Gel 15 Gm Gel..Gram.) 15 gm PO Q15M PRN; Protocol PRN Reason: per Hypoglycemia Standing Ord. Dextrose (D10) 250 mls @ 750 mls/hr IV Q15M PRN; Protocol PRN Reason: per Hypoglycemia Standing Ord. Magnesium Hydroxide (Milk Of Magnesia 30 Ml Oral.Susp) 30 ml PO DAILY PRN PRN Reason: Constipation Melatonin (Melatonin 3 Mg Tablet) 6 mg PO BEDTIME PRN PRN Reason: Insomnia Pantoprazole Sodium (Pantoprazole Sodium 40 Mg/10 Ml Vial) 40 mg IVPUSH BID@0630,1630 [facility] Last Admin: 11/19/23 06:47 Dose: 40 mg Documented By: [facility] Potassium Chloride (Potassium Chloride Er 20 Meq Tab.Er.Prt) 40 meq PO ONCE ONE Stop: 11/19/23 11:13 Pravastatin Sodium (Pravastatin Sodium 80 Mg Tablet) 80 mg PO BEDTIME [facility] Sodium Chloride (0.9 % Sodium Chloride Flush 3 Ml Syringe) 3 ml IVFLUSH QSHIFT [facility] Last Admin: 11/19/23 07:18 Dose: Not Given Documented By: RADHA Non-Admin Reason: IV Running Tiotropium [place] (Tiotropium [place] 2.5 Mcg 1 Puff/2.5 Mcg Mist.Inhal) 2 puff INHALE RDAILY [facility] Labs 11/18/23 20:26 11/19/23 10:24 Labs: Laboratory Results - last 24 hr 11/18/23 11/18/23 11/18/23 20:10 20:24 20:25 MCV MCH MCHC RDW Plt Count MPV Immature Gran % (Auto) Neut % (Auto) Lymph % (Auto) Petroleum % (Auto) Eos % (Auto) Baso % (Auto) Lymph # (Auto) Petroleum # (Auto) Eos # (Auto) Baso # (Auto) Abs Immat Gran (auto) Absolute Neuts (auto) Absolute Nucleated RBC Nucleated RBC % (auto) PT 64.1 H D INR 5.3 H* D APTT 38.1 H Hold Blue Top SEE NOTE VBG pH VBG pCO2 VBG pO2 VBG HCO3 VBG O2 Saturation VBG Base Excess Anion Gap 16 Estim Creat Clear Calc 26.5 Estimated GFR 24 POC Glucose 390 H* Random Glucose 419 H* Calcium 8.6 D Magnesium 2.2 Total Bilirubin 0.4 AST 14 ALT 9 Alkaline Phosphatase 32 L Troponin I High Sens 14.9 D B-Natriuretic Peptide 45 Total Protein 6.0 L Albumin 3.4 L Urine Color Urine Appearance Urine pH Ur Specific [place] Urine Protein Urine Glucose (UA) Urine Ketones Urine Blood Urine Nitrite Ur Leukocyte Esterase Urine RBC Urine WBC Ur Squamous Epith Cells Urine Bacteria Hyaline Casts Stool Occult Blood Influenza Type A (PCR) Influenza Type B (PCR) RSV RNA Qual (PCR) SARS-CoV-2 RNA (RT-PCR) Blood Type Antibody Screen Crossmatch 11/18/23 11/18/23 11/18/23 20:26 20:33 21:17 MCV 100.0 H MCH 32.7 MCHC 32.7 RDW 20.1 H Plt Count 375 D MPV 10.1 Immature Gran % (Auto) 0.5 H Neut % (Auto) 81.8 H Lymph % (Auto) 9.0 L Petroleum % (Auto) 8.2 Eos % (Auto) 0.2 Baso % (Auto) 0.3 Lymph # (Auto) 1.3 Petroleum # (Auto) 1.2 Eos # (Auto) 0.0 Baso # (Auto) 0.1 Abs Immat Gran (auto) 0.08 H Absolute Neuts (auto) 11.9 H Absolute Nucleated RBC 0.040 H Nucleated RBC % (auto) 0.3 H PT INR APTT Hold Blue Top VBG pH 7.36 VBG pCO2 57 VBG pO2 41 VBG HCO3 32 H VBG O2 Saturation 59.0 VBG Base Excess 6.4 Anion Gap Estim Creat Clear Calc Estimated GFR POC Glucose Random Glucose Calcium Magnesium Total Bilirubin AST ALT Alkaline Phosphatase Troponin I High Sens B-Natriuretic Peptide Total Protein Albumin Urine Color Urine Appearance Urine pH Ur Specific [place] Urine Protein Urine Glucose (UA) Urine Ketones Urine Blood Urine Nitrite Ur Leukocyte Esterase Urine RBC Urine WBC Ur Squamous Epith Cells Urine Bacteria Hyaline Casts Stool Occult Blood Influenza Type A (PCR) NEGATIVE Influenza Type B (PCR) NEGATIVE RSV RNA Qual (PCR) NEGATIVE SARS-CoV-2 RNA (RT-PCR) NEGATIVE Blood Type O Positive Antibody Screen NEGATIVE Crossmatch See Detail 11/18/23 11/18/23 11/18/23 21:25 21:41 22:51 MCV MCH MCHC RDW Plt Count MPV Immature Gran % (Auto) Neut % (Auto) Lymph % (Auto) Petroleum % (Auto) Eos % (Auto) Baso % (Auto) Lymph # (Auto) Petroleum # (Auto) Eos # (Auto) Baso # (Auto) Abs Immat Gran (auto) Absolute Neuts (auto) Absolute Nucleated RBC Nucleated RBC % (auto) PT INR APTT Hold Blue Top VBG pH VBG pCO2 VBG pO2 VBG HCO3 VBG O2 Saturation VBG Base Excess Anion Gap Estim Creat Clear Calc Estimated GFR POC Glucose 315 H Random Glucose Calcium Magnesium Total Bilirubin AST ALT Alkaline Phosphatase Troponin I High Sens B-Natriuretic Peptide Total Protein Albumin Urine Color Yellow Urine Appearance Clear Urine pH 5.0 Ur Specific [place] 1.015 Urine Protein Negative Urine Glucose (UA) Negative Urine Ketones Negative Urine Blood Negative Urine Nitrite Negative Ur Leukocyte Esterase Trace H Urine RBC 0-2 Urine WBC 0-5 Ur Squamous Epith Cells 0-2 Urine Bacteria None Seen Hyaline Casts 3-5 Stool Occult Blood POSITIVE Influenza Type A (PCR) Influenza Type B (PCR) RSV RNA Qual (PCR) SARS-CoV-2 RNA (RT-PCR) Blood Type Antibody Screen Crossmatch 11/19/23 11/19/23 04:55 10:24 MCV MCH MCHC RDW Plt Count MPV Immature Gran % (Auto) Neut % (Auto) Lymph % (Auto) Petroleum % (Auto) Eos % (Auto) Baso % (Auto) Lymph # (Auto) Petroleum # (Auto) Eos # (Auto) Baso # (Auto) Abs Immat Gran (auto) Absolute Neuts (auto) Absolute Nucleated RBC Nucleated RBC % (auto) PT 19.5 H D INR 1.6 H D APTT Hold Blue Top VBG pH VBG pCO2 VBG pO2 VBG HCO3 VBG O2 Saturation VBG Base Excess Anion Gap 15 Estim Creat Clear Calc 30.0 Estimated GFR 28 POC Glucose 170 H Random Glucose 308 H Calcium 8.1 L Magnesium Total Bilirubin AST ALT Alkaline Phosphatase Troponin I High Sens B-Natriuretic Peptide Total Protein Albumin Urine Color Urine Appearance Urine pH Ur Specific [place] Urine Protein Urine Glucose (UA) Urine Ketones Urine Blood Urine Nitrite Ur Leukocyte Esterase Urine RBC Urine WBC Ur Squamous Epith Cells Urine Bacteria Hyaline Casts Stool Occult Blood Influenza Type A (PCR) Influenza Type B (PCR) RSV RNA Qual (PCR) SARS-CoV-2 RNA (RT-PCR) Blood Type Antibody Screen Crossmatch Assessment and Plan (1) Severe anemia: Status: Acute (2) Acute GI bleeding: Status: Acute (3) Hypokalemia: Status: Acute (4) Chronic a-fib: Status: Acute Plan 73-year-old male with pertinent history of congestive heart failure with preserved ejection fraction, chronic hypoxic respiratory failure due to COPD on 2 L supplemental oxygen, rcq-cspzkeh-otvrywacq diabetes mellitus, permanent atrial fibrillation on Coumadin, mixed hyperlipidemia, hypertension, chronic kidney disease stage III who presents to the emergency department for evaluation of generalized weakness. #. Acute GI bleed: Continue to have melanotic small stools, likely diverticular bleed, case discussed with Dr. Figueroa, recent upper endoscopy and colonoscopy showed gastritis, duodenal nodule, diverticulosis and hemorrhoids Colonic polyp, pathology showed tubular adenoma, finding raised possibility of celiac disease , will hold off on repeat intervention at this time follow H&H CT abdomen and pelvis showed no acute abnormality, noted to have cirrhotic appearing liver with splenomegaly, cholelithiasis benign adrenal adenomas and colonic diverticulosis without diverticulitis. Place on full liquid diet ,continue IV Protonix times 24 hours transition back to Prilosec 40 mg daily. #. Acute blood loss anemia in the setting of above: s/p 2 unit PRBC , follow post transfusion CBC #. Acute kidney injury on chronic kidney disease stage III: Monitor creatinine and urine output with PRBC transfusion and colloid resuscitation. Avoid nephrotoxins, hold diuretics, follow BMP # acute hypokalemia likely due to diuretics , potassium 40 mEq given follow labs #. Reactive leukocytosis, no evidence of infection with normal UA, normal chest x-ray and CT abdomen and pelvis. #. Supratherapeutic INR: status post vitamin K, INR improved to 1.6, continue to hold Coumadin. Due to recurrent GI bleed , will consider low INR between 1.5-2. #. Permanent atrial fibrillation: Rate controlled on digoxin, hold Coumadin due to GI bleed. #. Chronic hypoxic respiratory failure due to COPD: On baseline 2 L supplemental oxygen. No exacerbation noted, continue home inhalers. #. Chronic Congestive heart failure with preserved EF: Hold diuresis in the setting of acute GI bleed and RAHEEM. #. Gnq-eofamdm-pfculdizw diabetes mellitus with hyperglycemia: Elevated blood sugars Continue sliding scale insulin , hold metformin. #. Mixed hyperlipidemia: On statin DVT prophylaxis: Mechanical device Full code Patient will require continued inpatient hospitalization for monitoring hemodynamics, as well as close follow-up of renal function and CBC and monitoring of INR. Treatment can not be provided in less acute setting. Quality Stroke Does the patient have a stroke diagnosis?: No VTE Prior VTE?: No VTE Risk Level:: Medical - moderate - high VTE Device Contraindication: N/A - Device Ordered VTE Drug Contraindication: Treatment Not Indicated
[2023-11-19 11:39] LABS: Glucose, Whole Blood 291 mg/dL (60-115)
[2023-11-19] MEDS: Insulin Lispro 100 UNIT/ML 3 ML VIAL SUBCUT ×2 (11:44→20:59)
[2023-11-19] MEDS: Potassium Chloride ER 20 MEQ TAB.ER.PRT 40 MEQ PO (11:44)
[2023-11-19] MEDS: Cyanocobalamin (Vitamin B-12) 1,000 MCG TABLET 1000 MCG PO (11:45)
[2023-11-19] MEDS: Ezetimibe 10 MG TABLET PO (11:45)
[2023-11-19 12:28] LABS: Mean Corpuscular HGB Conc 33.9 g/dl (31.0-36.0); Mean Corpuscular Volume 94.5 fL (80.0-98.0); Mean Platelet Volume 10.1 fL (9.4-12.4); NRBC Pct Auto 0.2 /100WBC (0.0-0.2); Platelet Count 239 X10*3/uL (160-400); Red Cell Distribution Width 21.3 % (11.0-16.0); White Blood Count 10.6 X10*3/uL (4.8-10.8)
[2023-11-19 12:38] LABS: Hematocrit 18.9 % (42.0-52.0)
[2023-11-19 12:39] LABS: Hemoglobin 6.4 g/dl (14.0-18.0)
[2023-11-19 16:12] LABS: Glucose, Whole Blood 240 mg/dL (60-115)
--- NOTE | 2023-11-19 16:53 | PC.NURSE ---
1640, patient has another unit rbc to infuse, went down to nuclear for scan
[2023-11-19 20:12] LABS: Glucose, Whole Blood 393 mg/dL (60-115)
[2023-11-19] MEDS: Digoxin 0.125 MG TABLET PO (20:58)
[2023-11-19] MEDS: Pravastatin Sodium 80 MG TABLET PO (20:58)
[2023-11-19 23:34] LABS: Hematocrit 22.8 % (42.0-52.0); Hemoglobin 7.8 g/dl (14.0-18.0); Mean Corpuscular HGB Conc 34.2 g/dl (31.0-36.0); Mean Corpuscular Hemoglobin 31.7 pg (27.0-33.0); Mean Corpuscular Volume 92.7 fL (80.0-98.0); Mean Platelet Volume 9.5 fL (9.4-12.4); NRBC Pct Auto 0.4 /100WBC (0.0-0.2); Platelet Count 235 X10*3/uL (160-400); Red Blood Count 2.46 X10*6/uL (4.60-5.80); Red Cell Distribution Width 20.6 % (11.0-16.0); White Blood Count 11.6 X10*3/uL (4.8-10.8)
[2023-11-20] VITALS (7 sets, daily range): BP systolic 103–122; BP diastolic 51–56; PULSE 55–86; RESP 17–18; TEMP 36–36.6; O2SAT 92–100
[2023-11-20] MEDS: Pantoprazole Sodium 40 MG/10 ML VIAL IVPUSH ×2 (05:46→16:23)
[2023-11-20 06:43] LABS: Glucose, Whole Blood 225 mg/dL (60-115)
[2023-11-20 07:29] LABS: Hematocrit 22.9 % (42.0-52.0); Hemoglobin 7.9 g/dl (14.0-18.0); Mean Corpuscular HGB Conc 34.5 g/dl (31.0-36.0); Mean Corpuscular Hemoglobin 32.5 pg (27.0-33.0); Mean Corpuscular Volume 94.2 fL (80.0-98.0); Mean Platelet Volume 10.1 fL (9.4-12.4); NRBC Pct Auto 0.3 /100WBC (0.0-0.2); Platelet Count 252 X10*3/uL (160-400); Red Blood Count 2.43 X10*6/uL (4.60-5.80); Red Cell Distribution Width 21.2 % (11.0-16.0); White Blood Count 10.2 X10*3/uL (4.8-10.8)
[2023-11-20 07:45] LABS: Anion Gap 13 (12-20); Blood Urea Nitrogen 60 mg/dL (9-16); Calcium 8.5 mg/dL (8.4-10.2); Carbon Dioxide 32 mmol/L (22-29); Chloride 98 mmol/L (96-108); Creatinine Clr Calc Pharmacy 35.2; Estimated Glomerular Filt Rate 34; Glucose Random 234 mg/dL (60-115); Sodium 140 mmol/L (135-145)
[2023-11-20 07:49] LABS: Prothrombin Time 12.1 SEC (11.1-13.3)
[2023-11-20 07:56] LABS: Glucose, Whole Blood 221 mg/dL (60-115)
[2023-11-20] MEDS: Tiotropium Bromide 2.5 mcg 1 PUFF/2.5 MCG MIST.INHAL 2 PUFF INHALE (08:18)
[2023-11-20] MEDS: Fluticasone/Vilanterol 100/25 BLST.W.DEV 1 PUFF INHALE (08:18)
[2023-11-20] MEDS: Cyanocobalamin (Vitamin B-12) 1,000 MCG TABLET 1000 MCG PO (08:34)
[2023-11-20] MEDS: Insulin Lispro 100 UNIT/ML 3 ML VIAL SUBCUT ×4 (08:34→22:08)
[2023-11-20] MEDS: Ezetimibe 10 MG TABLET PO (08:34)
[2023-11-20 11:14] LABS: Glucose, Whole Blood 243 mg/dL (60-115)
--- NOTE | 2023-11-20 14:34 | P.PNIM_ITS ---
Subjective Subjective Date of Service: 11/20/23 Interval History: Doing well overall. No further bleeding Review of Systems Denies chest pain Denies shortness of breath Denies nausea vomiting diarrhea Denies fever chills Physical Exam 2 Vital Signs: Vital Signs: Last Vital Signs Temp 97.6 F 11/20/23 12:00 Pulse 55 11/20/23 12:00 Resp 17 11/20/23 12:00 BP 112/51 L 11/20/23 12:00 Pulse Ox 95 11/20/23 12:00 O2 Del Method Nasal Cannula 11/20/23 12:00 O2 Flow Rate 2 11/20/23 12:00 Oxygen Flow Rate 2 11/18/23 20:06 BMI result Body Mass Index 28.5 Const: Other: Awake alert no acute distress Resp: Other: Clear to auscultation bilaterally no rales rhonchi or wheezes Cardio: Other: No S4; positive S1-S2; no S3 murmurs rubs or gallops GI: Other: Soft nontender nondistended normoactive bowel sounds Extrem: Other: No edema bilaterally Objective Data Active Medications Acetaminophen (Acetaminophen 325 Mg Tablet) 650 mg PO Q6H PRN PRN Reason: Pain, Mild (Pain Scale 1-3), fever or headache Albuterol Sulfate (Albuterol Sulfate 90 Mcg 8 Gm Inhaler) 2 puff INHALE QID PRN PRN Reason: shortness of breath or wheezing Calcium Carbonate (Calcium Carbonate 750 Mg Tab.Chew) 750 mg PO Q4H PRN PRN Reason: Heartburn Cyanocobalamin (Cyanocobalamin (Vitamin B-12) 1,000 Mcg Tablet) 1,000 mcg PO DAILY [facility] Last Admin: 11/20/23 08:34 Dose: 1,000 mcg Documented By: TARIK Digoxin (Digoxin 0.125 Mg Tablet) 0.125 mg PO SuTuThSa@2100 [facility] Last Admin: 11/19/23 20:58 Dose: 0.125 mg Documented By: ANGY Ezetimibe (Ezetimibe 10 Mg Tablet) 10 mg PO DAILY [facility] Last Admin: 11/20/23 08:34 Dose: 10 mg Documented By: TARIK Fluticasone/Vilanterol (Fluticasone/Vilanterol 100/25 Blst.W.Dev) 1 puff INHALE RDAILY [facility] Last Admin: 11/20/23 08:18 Dose: 1 puff Documented By: DIA Glucose (Glucose Gel 15 Gm Gel..Gram.) 15 gm PO Q15M PRN; Protocol PRN Reason: per Hypoglycemia Standing Ord. Dextrose (D10) 250 mls @ 750 mls/hr IV Q15M PRN; Protocol PRN Reason: per Hypoglycemia Standing Ord. Dextrose (D10) 250 mls @ 750 mls/hr IV Q15M PRN; Protocol PRN Reason: per Hypoglycemia Standing Ord. Insulin Human Lispro (Insulin Lispro 100 Unit/Ml 3 Ml Vial) 0 unit SUBCUT QIDACHS [facility]; Protocol Last Admin: 11/20/23 11:28 Dose: 4 unit Documented By: TARIK Magnesium Hydroxide (Milk Of Magnesia 30 Ml Oral.Susp) 30 ml PO DAILY PRN PRN Reason: Constipation Melatonin (Melatonin 3 Mg Tablet) 6 mg PO BEDTIME PRN PRN Reason: Insomnia Pantoprazole Sodium (Pantoprazole Sodium 40 Mg/10 Ml Vial) 40 mg IVPUSH BID@0630,1630 [facility] Last Admin: 11/20/23 05:46 Dose: 40 mg Documented By: ANGY Pravastatin Sodium (Pravastatin Sodium 80 Mg Tablet) 80 mg PO BEDTIME [facility] Last Admin: 11/19/23 20:58 Dose: 80 mg Documented By: ANGY Sodium Chloride (0.9 % Sodium Chloride Flush 3 Ml Syringe) 3 ml IVFLUSH QSHIFT [facility] Last Admin: 11/20/23 10:19 Dose: Not Given Documented By: TARIK Non-Admin Reason: Previously Administered Tiotropium [place] (Tiotropium [place] 2.5 Mcg 1 Puff/2.5 Mcg Mist.Inhal) 2 puff INHALE RDAILY [facility] Last Admin: 11/20/23 08:18 Dose: 2 puff Documented By: DIA Labs 11/20/23 06:46 11/20/23 06:46 Labs: Laboratory Results - last 24 hr 11/18/23 11/19/23 11/19/23 20:26 16:02 20:08 MCV MCH MCHC RDW Plt Count MPV Absolute Nucleated RBC Nucleated RBC % (auto) PT INR Anion Gap Estim Creat Clear Calc Estimated GFR POC Glucose 240 H 393 H* Random Glucose Calcium Blood Type O Positive Antibody Screen NEGATIVE Crossmatch See Detail 11/19/23 11/20/23 11/20/23 23:29 06:40 06:46 MCV 92.7 94.2 MCH 31.7 32.5 MCHC 34.2 34.5 RDW 20.6 H 21.2 H Plt Count 235 252 MPV 9.5 10.1 Absolute Nucleated RBC 0.050 H 0.030 H Nucleated RBC % (auto) 0.4 H 0.3 H PT 12.1 D INR 1.0 Anion Gap 13 Estim Creat Clear Calc 35.2 Estimated GFR 34 POC Glucose 225 H Random Glucose 234 H Calcium 8.5 Blood Type Antibody Screen Crossmatch 11/20/23 11/20/23 07:52 11:10 MCV MCH MCHC RDW Plt Count MPV Absolute Nucleated RBC Nucleated RBC % (auto) PT INR Anion Gap Estim Creat Clear Calc Estimated GFR POC Glucose 221 H 243 H Random Glucose Calcium Blood Type Antibody Screen Crossmatch Assessment and Plan (1) Acute GI bleeding: Status: Acute Plan 73-year-old male with pertinent history of congestive heart failure with preserved ejection fraction, chronic hypoxic respiratory failure due to COPD on 2 L supplemental oxygen, nlc-itssuhl-hojqffetu diabetes mellitus, permanent atrial fibrillation on Coumadin, mixed hyperlipidemia, hypertension, chronic kidney disease stage III who presents to the emergency department for evaluation of generalized weakness. 1.Acute GI bleed -recent: 08/19/2023 reviewed with GI; bleeding scan negative -no further bleeding since admission -switch back to p.o. Prilosec 40 mg daily -advance diet 2.Acute kidney injury on chronic kidney disease stage III -back to baseline -follow renal/divalent -add back diuresis at discharge 3.Supratherapeutic INR -INR normalized -will discuss with Hematology/cardiology possibility of Eliquis 4.Permanent atrial fibrillation -acceptable rate control on current therapies -discuss anticoagulation with 5.Cuc-hmcmrcd-jmktdshyn diabetes mellitus -metformin on hold; re [place] when appropriate -lispro correctional scale Mechanical device Full code Patient will require continued inpatient hospitalization for monitoring hemodynamics, as well as close follow-up of renal function and CBC and monitoring of INR. Treatment can not be provided in less acute setting. Quality Stroke Does the patient have a stroke diagnosis?: No VTE Prior VTE?: No VTE Risk Level:: Medical - moderate - high VTE Device Contraindication: N/A - Device Ordered VTE Drug Contraindication: Treatment Not Indicated
--- NOTE | 2023-11-20 14:52 | MHC.CM.PN ---
Pt not yet medically cleared for DC, DCP: home with family. CM to follow for DC needs.
[2023-11-20 16:14] LABS: Glucose, Whole Blood 245 mg/dL (60-115)
[2023-11-20 20:16] LABS: Glucose, Whole Blood 361 mg/dL (60-115)
[2023-11-20] MEDS: Pravastatin Sodium 80 MG TABLET PO (22:08)
[2023-11-20] MEDS: 0.9 % Sodium Chloride Flush 3 ML SYRINGE IVFLUSH (22:09)
[2023-11-21] VITALS (7 sets, daily range): BP systolic 105–119; BP diastolic 51–72; PULSE 75–88; RESP 17–22; TEMP 36.7–37.2; O2SAT 95–98
[2023-11-21] MEDS: Pantoprazole Sodium 40 MG/10 ML VIAL IVPUSH ×2 (06:42→16:53)
[2023-11-21 06:44] LABS: MANUAL DIFF FLAG NO
[2023-11-21 07:03] LABS: Basophils Percent Auto 0.4 % (0-2); Eosinophils Absolute Auto 0.3 X10*3/uL (0.0-0.4); Eosinophils Percent Auto 3.1 % (0-4); Hematocrit 23.5 % (42.0-52.0); Hemoglobin 7.8 g/dl (14.0-18.0); Imm Gran Abs Auto 0.11 X10*3/uL (0.00-0.03); Imm Gran Pct Auto 1.2 % (0.0-0.4); Lymphocytes Absolute Auto 1.3 X10*3/uL (1.2-4.9); Lymphocytes Percent Auto 13.6 % (20-40); Mean Corpuscular HGB Conc 33.2 g/dl (31.0-36.0); Mean Corpuscular Hemoglobin 31.7 pg (27.0-33.0); Mean Corpuscular Volume 95.5 fL (80.0-98.0); Mean Platelet Volume 9.9 fL (9.4-12.4); Monocytes Percent Auto 10.1 % (2-11); NRBC Pct Auto 0.3 /100WBC (0.0-0.2); Neutrophils Absolute Auto 6.7 x10*3/uL (2.0-8.3); Neutrophils Percent Auto 71.6 % (45-73); Platelet Count 272 X10*3/uL (160-400); Red Blood Count 2.46 X10*6/uL (4.60-5.80); Red Cell Distribution Width 20.8 % (11.0-16.0); White Blood Count 9.4 X10*3/uL (4.8-10.8)
[2023-11-21] MEDS: Tiotropium Bromide 2.5 mcg 1 PUFF/2.5 MCG MIST.INHAL 2 PUFF INHALE (07:30)
[2023-11-21] MEDS: Fluticasone/Vilanterol 100/25 BLST.W.DEV 1 PUFF INHALE (07:30)
[2023-11-21 07:34] LABS: Glucose, Whole Blood 217 mg/dL (60-115)
[2023-11-21 07:37] LABS: Alanine Aminotransferase 9 U/L (0-40); Albumin Level 3.7 g/dL (3.5-5.0); Alkaline Phosphatase 29 U/L (39-117); Anion Gap 15 (12-20); Aspartate Amino Transferase 19 U/L (5-37); Blood Urea Nitrogen 39 mg/dL (9-16); Calcium 8.2 mg/dL (8.4-10.2); Carbon Dioxide 31 mmol/L (22-29); Chloride 98 mmol/L (96-108); Creatinine Clr Calc Pharmacy 36.4; Estimated Glomerular Filt Rate 35; Glucose Fasting 207 mg/dL (60-99); Sodium 141 mmol/L (135-145); Total Protein 5.6 g/dL (6.5-8.0)
[2023-11-21 07:45] LABS: Potassium 2.7 mmol/L (3.3-5.1)
[2023-11-21] MEDS: Insulin Lispro 100 UNIT/ML 3 ML VIAL SUBCUT ×4 (08:08→21:14)
[2023-11-21] MEDS: Ezetimibe 10 MG TABLET PO (08:09)
[2023-11-21] MEDS: Cyanocobalamin (Vitamin B-12) 1,000 MCG TABLET 1000 MCG PO (08:09)
[2023-11-21] MEDS: 0.9 % Sodium Chloride Flush 3 ML SYRINGE IVFLUSH ×3 (08:10→21:15)
[2023-11-21] MEDS: Potassium Chloride Packet 20 MEQ PACKET 40 MEQ PO ×2 (08:21→21:14)
[2023-11-21 11:37] LABS: Glucose, Whole Blood 338 mg/dL (60-115)
--- NOTE | 2023-11-21 13:29 | MHC.CM.PN ---
Per MD, Patient will likely go home tomorrow with services; [facility]. CM will follow.
--- NOTE | 2023-11-21 15:23 | HO.PM.IMPN ---
Subjective Subjective Date of Service: 11/21/23 Interval History: No acute issues overnight. No overt bleeding Review of Systems Denies chest pain Denies shortness of breath Denies nausea vomiting diarrhea Denies fever chills Physical Exam Vital Signs: Vital Signs: Last Vital Signs Temp 98.9 F 11/21/23 12:00 Pulse 76 11/21/23 12:00 Resp 22 H 11/21/23 12:00 BP 118/51 L 11/21/23 12:00 Pulse Ox 97 11/21/23 12:00 O2 Del Method Nasal Cannula 11/21/23 12:00 O2 Flow Rate 2 11/21/23 12:00 Oxygen Flow Rate 2 11/18/23 20:06 BMI result Body Mass Index 28.5 Const: Other: Awake alert no acute distress Resp: Other: Clear to auscultation bilaterally no rales rhonchi or wheezes Cardio: Other: No S4; positive S1-S2; no S3 murmurs rubs or gallops GI: Other: Soft nontender nondistended normoactive bowel sounds Extrem: Other: No edema bilaterally Objective Data Active Medications Acetaminophen (Acetaminophen 325 Mg Tablet) 650 mg PO Q6H PRN PRN Reason: Pain, Mild (Pain Scale 1-3), fever or headache Albuterol Sulfate (Albuterol Sulfate 90 Mcg 8 Gm Inhaler) 2 puff INHALE QID PRN PRN Reason: shortness of breath or wheezing Calcium Carbonate (Calcium Carbonate 750 Mg Tab.Chew) 750 mg PO Q4H PRN PRN Reason: Heartburn Cyanocobalamin (Cyanocobalamin (Vitamin B-12) 1,000 Mcg Tablet) 1,000 mcg PO DAILY [facility] Last Admin: 11/21/23 08:09 Dose: 1,000 mcg Documented By: MARCIA Digoxin (Digoxin 0.125 Mg Tablet) 0.125 mg PO SuTuThSa@2100 [facility] Last Admin: 11/19/23 20:58 Dose: 0.125 mg Documented By: ANGY Ezetimibe (Ezetimibe 10 Mg Tablet) 10 mg PO DAILY [facility] Last Admin: 11/21/23 08:09 Dose: 10 mg Documented By: MARCIA Fluticasone/Vilanterol (Fluticasone/Vilanterol 100/25 Blst.W.Dev) 1 puff INHALE RDAILY [facility] Last Admin: 11/21/23 07:30 Dose: 1 puff Documented By: CHAYO Glucose (Glucose Gel 15 Gm Gel..Gram.) 15 gm PO Q15M PRN; Protocol PRN Reason: per Hypoglycemia Standing Ord. Dextrose (D10) 250 mls @ 750 mls/hr IV Q15M PRN; Protocol PRN Reason: per Hypoglycemia Standing Ord. Dextrose (D10) 250 mls @ 750 mls/hr IV Q15M PRN; Protocol PRN Reason: per Hypoglycemia Standing Ord. Insulin Human Lispro (Insulin Lispro 100 Unit/Ml 3 Ml Vial) 0 unit SUBCUT QIDACHS [facility]; Protocol Last Admin: 11/21/23 11:46 Dose: 8 unit Documented By: MARCIA Magnesium Hydroxide (Milk Of Magnesia 30 Ml Oral.Susp) 30 ml PO DAILY PRN PRN Reason: Constipation Melatonin (Melatonin 3 Mg Tablet) 6 mg PO BEDTIME PRN PRN Reason: Insomnia Pantoprazole Sodium (Pantoprazole Sodium 40 Mg/10 Ml Vial) 40 mg IVPUSH BID@0630,1630 [facility] Last Admin: 11/21/23 06:42 Dose: 40 mg Documented By: CALIXTO Potassium Chloride (Potassium Chloride Packet 20 Meq Packet) 40 meq PO BID [facility] Last Admin: 11/21/23 08:21 Dose: 40 meq Documented By: MARCIA Pravastatin Sodium (Pravastatin Sodium 80 Mg Tablet) 80 mg PO BEDTIME [facility] Last Admin: 11/20/23 22:08 Dose: 80 mg Documented By: CALIXTO Sodium Chloride (0.9 % Sodium Chloride Flush 3 Ml Syringe) 3 ml IVFLUSH QSHIFT [facility] Last Admin: 11/21/23 08:10 Dose: 3 ml Documented By: MARCIA Tiotropium [place] (Tiotropium [place] 2.5 Mcg 1 Puff/2.5 Mcg Mist.Inhal) 2 puff INHALE RDAILY [facility] Last Admin: 11/21/23 07:30 Dose: 2 puff Documented By: CHAYO Labs 11/21/23 06:00 11/21/23 06:00 Labs: Laboratory Results - last 24 hr 11/20/23 11/20/23 11/21/23 16:07 20:03 06:00 MCV 95.5 MCH 31.7 MCHC 33.2 RDW 20.8 H Plt Count 272 MPV 9.9 Immature Gran % (Auto) 1.2 H Neut % (Auto) 71.6 Lymph % (Auto) 13.6 L [place] % (Auto) 10.1 Eos % (Auto) 3.1 Baso % (Auto) 0.4 Lymph # (Auto) 1.3 [place] # (Auto) 1.0 Eos # (Auto) 0.3 Baso # (Auto) 0.0 Abs Immat Gran (auto) 0.11 H Absolute Neuts (auto) 6.7 Absolute Nucleated RBC 0.030 H Nucleated RBC % (auto) 0.3 H Anion Gap 15 Estim Creat Clear Calc 36.4 Estimated GFR 35 POC Glucose 245 H 361 H* Fasting Glucose 207 H Calcium 8.2 L Total Bilirubin 1.0 AST 19 ALT 9 Alkaline Phosphatase 29 L Total Protein 5.6 L Albumin 3.7 11/21/23 11/21/23 07:22 11:31 MCV MCH MCHC RDW Plt Count MPV Immature Gran % (Auto) Neut % (Auto) Lymph % (Auto) [place] % (Auto) Eos % (Auto) Baso % (Auto) Lymph # (Auto) [place] # (Auto) Eos # (Auto) Baso # (Auto) Abs Immat Gran (auto) Absolute Neuts (auto) Absolute Nucleated RBC Nucleated RBC % (auto) Anion Gap Estim Creat Clear Calc Estimated GFR POC Glucose 217 H 338 H Fasting Glucose Calcium Total Bilirubin AST ALT Alkaline Phosphatase Total Protein Albumin Assessment and Plan (1) Acute GI bleeding: Status: Acute Plan 73-year-old male with pertinent history of congestive heart failure with preserved ejection fraction, chronic hypoxic respiratory failure due to COPD on 2 L supplemental oxygen, [id number]-kajwuqggq diabetes mellitus, permanent atrial fibrillation on Coumadin, mixed hyperlipidemia, hypertension, chronic kidney disease stage III who presents to the emergency department for evaluation of generalized weakness. 1.Acute GI bleed -recent: 08/19/2023 reviewed with GI; bleeding scan negative -no further bleeding since admission -switch back to p.o. Prilosec 40 mg daily -advance diet -GI recommends holding anticoagulation for at least 10 days; can follow-up with Cardiology at that time 2.Acute kidney injury on chronic kidney disease stage III -back to baseline -follow renal/divalent -add back diuresis at discharge 3.Supratherapeutic INR -INR normalized -will discuss with Hematology/cardiology possibility of Eliquis as outpatient 4.Permanent atrial fibrillation -acceptable rate control on current therapies -hold anticoagulation as above 5.Znt-pmdnpya-sjktogxrb diabetes mellitus -metformin on hold; re [place] when appropriate -lispro correctional scale Mechanical device Full code Patient will require continued inpatient hospitalization for monitoring hemodynamics, as well as close follow-up of renal function and CBC and monitoring of INR. Treatment can not be provided in less acute setting. Quality Stroke Does the patient have a stroke diagnosis?: No VTE Prior VTE?: No VTE Risk Level:: Medical - moderate - high VTE Device Contraindication: N/A - Device Ordered VTE Drug Contraindication: Treatment Not Indicated
[2023-11-21 16:13] LABS: Glucose, Whole Blood 266 mg/dL (60-115)
[2023-11-21 20:58] LABS: Glucose, Whole Blood 307 mg/dL (60-115)
[2023-11-21] MEDS: Digoxin 0.125 MG TABLET PO (21:14)
[2023-11-21] MEDS: Melatonin 3 MG TABLET 6 MG PO (21:14)
[2023-11-21] MEDS: Pravastatin Sodium 80 MG TABLET PO (21:14)
[2023-11-22 04:00] VITALS: BP 105/53; PULSE 76; RESP 18; TEMP 36.2; O2SAT 94
[2023-11-22] MEDS: Pantoprazole Sodium 40 MG/10 ML VIAL IVPUSH (05:38)
[2023-11-22 07:45] LABS: Glucose, Whole Blood 221 mg/dL (60-115)
[2023-11-22 07:51] VITALS: BP 102/54; PULSE 79; RESP 18; TEMP 36.3; O2SAT 96
[2023-11-22] MEDS: Fluticasone/Vilanterol 100/25 BLST.W.DEV 1 PUFF INHALE (07:57)
[2023-11-22] MEDS: Tiotropium Bromide 2.5 mcg 1 PUFF/2.5 MCG MIST.INHAL 2 PUFF INHALE (07:57)
[2023-11-22 07:59] VITALS: PULSE 83; RESP 18; O2SAT 91
[2023-11-22] MEDS: Insulin Lispro 100 UNIT/ML 3 ML VIAL SUBCUT ×2 (07:59→11:46)
[2023-11-22] MEDS: Cyanocobalamin (Vitamin B-12) 1,000 MCG TABLET 1000 MCG PO (08:00)
[2023-11-22] MEDS: Ezetimibe 10 MG TABLET PO (08:00)
[2023-11-22] MEDS: Potassium Chloride Packet 20 MEQ PACKET 40 MEQ PO (08:00)
[2023-11-22] MEDS: 0.9 % Sodium Chloride Flush 3 ML SYRINGE IVFLUSH (08:00)
[2023-11-22 11:26] LABS: Glucose, Whole Blood 283 mg/dL (60-115)
--- NOTE | 2023-11-22 11:41 | PM.DS ---
DS: Providers Provider Date of Service: 11/22/23 Date of admission: 11/18/23 22:14 Date of discharge: 11/22/23 Primary care physician: Grayson Berrios DO, MD Consults: 11/18/23 22:14 Consult to Gastroenterology Routine Consulting Provider: Hans Figueroa Reason for consultation: GI bleed Has provider been notified: No DS: Diagnosis Discharge Diagnosis (1) Acute GI bleeding: Status: Acute DS: Summary Hospital Course Hospital Course: 73-year-old male with pertinent history of congestive heart failure with preserved ejection fraction, chronic hypoxic respiratory failure due to COPD on 2 L supplemental oxygen, jkj-fishjkr-yuelrwilb diabetes mellitus, permanent atrial fibrillation on Coumadin, mixed hyperlipidemia, hypertension, chronic kidney disease stage III who presents to the emergency department for evaluation of generalized weakness. Patient states he has been feeling weak and has generalized fatigability. He noticed blood in stools 1 day prior to presentation. It was painless and without any abdominal discomfort. No hematemesis. No fever, chills. Patient was previously admitted in 08/19/2023 for heme-positive stools where he required 4 unit PRBC transfusion during hospitalization. Patient is on Coumadin for AFib and is compliant with it. No chest discomfort, palpitations, shortness of breath, changes in urinary habits. In the emergency department, hemoglobin was found to be 6.5. INR found to be elevated. Vitamin K and 2 unit PRBC transfusion ordered. Hospital Course Admitted to telemetry an INR was followed. Normalize secondary to vitamin K. anemia responded well to 2 units of packed red cells. Seen in consultation by GI; previously colonoscopy and upper endoscopy in July of 2023. GI felt this was related to a diverticular bleed secondary to hyperprothrombinemia. A GI bleeding scan was done without any acute abnormalities. Patient's diet was advanced and his stool remain normal correlating with his normal INR. After discussion with GI, patient will be discharged off warfarin and will follow up with Cardiology. GI recommendation is 10 days off warfarin and then restart. Given this episode hyperprothrombinemia question DOAC in future. Time Attestation Discharge Coordination Time (in mins): 35 Quality: Safe Use of Opioids Does Pt have an Active Cancer Diagnosis on the Problem List?: No Quality: Stroke Does the patient have a stroke diagnosis?: No Physical Exam Vital Signs: Vital Signs: Last Vital Signs Temp 97.3 F 11/22/23 07:51 Pulse 83 11/22/23 07:59 Resp 18 11/22/23 07:59 BP 102/54 L 11/22/23 07:51 Pulse Ox 96 11/22/23 07:51 O2 Del Method Nasal Cannula 11/22/23 07:51 O2 Flow Rate 2 11/22/23 07:51 Oxygen Flow Rate 2 11/18/23 20:06 BMI result Body Mass Index 28.5 Const: Other: Awake alert no acute distress Resp: Other: Clear to auscultation bilaterally no rales rhonchi or wheezes Cardio: Other: No S4; positive S1-S2; no S3 murmurs rubs or gallops GI: Other: Soft nontender nondistended normoactive bowel sounds Extrem: Other: No edema bilaterally DS: Data Data Completed and Pending Completed studies during hospitalization [Text1]: Procedures Excision of Duodenum, Via Natural or Artificial Opening Endoscopic, Diagnostic (07/30/23) Excision of Rectum, Via Natural or Artificial Opening Endoscopic, Diagnostic (07/30/23) Excision of Stomach, Pylorus, Via Natural or Artificial Opening Endoscopic, Diagnostic (07/30/23) Excision of Transverse Colon, Via Natural or Artificial Opening Endoscopic, Diagnostic (07/30/23) Transfusion of Nonautologous Red Blood Cells into Peripheral Vein, Percutaneous Approach (07/30/23) Labs on day of discharge: Laboratory Results - last 24 hr 11/21/23 11/21/23 11/22/23 16:03 20:40 07:42 POC Glucose 266 H 307 H 221 H 11/22/23 11:22 POC Glucose 283 H Discharge Plan Discharge Anticipated Discharge Date/Time: 11/22/23 11:32 Patient Disposition: Home Health Service Discharge Diagnosis: Lower GI bleed Referrals: Grayson Berrios DO, MD [Primary Care Provider] - 1 Week Discharge Medications: Continued torsemide 20 mg tablet 40 mg PO BID 30 Days Qty: 120 5RF cyanocobalamin (vitamin B-12) 1,000 mcg Tablet 1,000 mcg PO DAILY fluticasone furoate-vilanterol [Breo Ellipta] 100-25 mcg/dose Blister With Device 1 inh INHALATION DAILY pravastatin 80 mg tablet 80 mg PO BEDTIME digoxin 125 mcg (0.125 mg) tablet 125 mcg PO SUTUTHSA@2100 acetazolamide 125 mg tablet 125 mg PO BID omeprazole 40 mg capsule,delayed release(DR/EC) 40 mg PO DAILY@0630 potassium chloride 20 mEq tablet extended release 20 meq PO BEDTIME potassium chloride 20 mEq tablet extended release 40 meq PO DAILY Incruse Ellipta 62.5 mcg/actuation blister with device 1 inh INHALATION DAILY metformin 500 mg tablet 500 mg PO BIDWM ezetimibe 10 mg tablet 10 mg PO DAILY ascorbic acid (vitamin C) 500 mg tablet 500 mg PO DAILY metolazone 2.5 mg tablet 2.5 mg PO DAILY PRN (Reason: for swelling) albuterol sulfate 90 mcg/actuation HFA aerosol inhaler 2 inh inhalation QID PRN (Reason: shortness of breath or wheezing) Discontinued warfarin 2.5 mg tablet 5 mg PO SUTUWEFRSA@1800 ferrous sulfate 325 mg (65 mg iron) tablet 325 mg PO DAILY warfarin 2.5 mg tablet 2.5 mg PO MOTH@1800 Hold Instructions: Resume on 08/09/23. Protocol: Dose Management Condition: Thursday (Week One) Dose/Route: 5 mg Instruction: 1 x 5 mg tablet Condition: Thursday Dose/Route: 2.5 mg Instruction: 1 x 2.5 mg tablet Condition: Thursday Dose/Route: 5 mg Instruction: 1 x 5 mg tablet Condition: Thursday Dose/Route: 5 mg Instruction: 1 x 5 mg tablet Condition: Dose/Route: 2.5 mg Instruction: 1 x 2.5 mg tablet Condition: Thursday Dose/Route: 7.5 mg Instruction: 1 x 2.5 mg tablet, 1 x 5 mg tablet Condition: Thursday Dose/Route: 5 mg Instruction: 1 x 5 mg tablet Condition: Thursday (Week Two) Dose/Route: 5 mg Instruction: 1 x 5 mg tablet Condition: Thursday Dose/Route: 2.5 mg Instruction: 1 x 2.5 mg tablet Condition: Thursday Dose/Route: 5 mg Instruction: 1 x 5 mg tablet Condition: Thursday Dose/Route: 5 mg Instruction: 1 x 5 mg tablet Condition: Dose/Route: 2.5 mg Instruction: 1 x 2.5 mg tablet Condition: Thursday Dose/Route: 5 mg Instruction: 1 x 5 mg tablet Condition: Thursday Dose/Route: 5 mg Instruction: 1 x 5 mg tablet Protocol Text: Adjustment Start Date: Thursday11/06/23 INR Value: 1.7 INR Date: 11/06/23 Recheck Date: 11/20/23 Additional Instructions: take 7.5mg today only then cont prev dosing no greens for 2 days, eat a red today Discharge Orders: Discharge Order (Routine); Ordered 11/22/23 Ordered By: David Ulrich Diet: Advance to usual diet Activity on Discharge: As tolerated Stand Alone Forms: Patient Portal Discharge page Print Language: [place] Care Plan Goals: Your Coumadin has been stopped secondary to your GI bleed. Do not take this until seen again by Dr. [facility] Concerns: Continue all other medicines as previously taken Plan of Treatment: Follow-up with both Cardiology and GI as scheduled Assessment: See discharge summary
--- NOTE | 2023-11-22 11:45 | P.F2F_ITS ---
Service Date Service Date: 11/22/23 Encounter Date of encounter: 11/22/23 Encounter: Acute hospitalization Reasons for Services Signs and symptoms assessed: Assess overall cardiac status and monitored for lower GI bleeding Reason for residential: medication management and teach disease management Homebound: Leaving the home is medically contraindicated at this time without the asist of a device and/or another person due th the listed conditions above and below. Reason homebound: unsteady gait / fall risk and unable to drive Certification: Based on the above findings, I certify that this patient is confined to the home and needs intermittent residential care, physical therapy and/or speech therapy, or continues to need occupational therapy. The patient is under my care, and I have initiated the establishment of the plan of care. The patient will be followed by a physician who will periodically review the plan of care. Time Spent With Patient Time: Total time managing care of this patient today ____ minutes.
--- NOTE | 2023-11-22 11:51 | MHC.CM.PN ---
Patient has been medically cleared for dc to home today, with services. A referral was made to [facility], who has been made aware of today's dc. CM met with Patient at bedside and addressed IMM with him, providing Patient with the original and a copy has been placed on the chart. Patient's or Daughter will transport.
[2023-11-22 11:54] VITALS: BP 103/56; PULSE 61; RESP 18; TEMP 36.2; O2SAT 93
== END 2023-11-22 14:29 | disposition home health service (06) | DRG 378 ==
LOC: HO.ED 20:50 → HO.EDOVER 22:28 → HO.IMC 11-19 07:32
PROVIDERS: Hospitalist; Internal Medicine Gastroenterology; Admitting Provider Student in an Organized Health Care Education/Training Program; Emergency Provider Internal Medicine; PCP Internal Medicine; Visit Provider Hospitalist
DX: K57.31 Diverticulosis of large intestine without perforation or abscess with bleeding (principal); D62 Acute posthemorrhagic anemia; N17.9 Acute kidney failure, unspecified; I48.21 Permanent atrial fibrillation; I13.0 Hypertensive heart and chronic kidney disease with heart failure and stage 1 through stage 4 chronic kidney disease, or unspecified chronic kidney disease; I50.32 Chronic diastolic (congestive) heart failure; J96.11 Chronic respiratory failure with hypoxia; E03.9 Hypothyroidism, unspecified; I87.8 Other specified disorders of veins; J44.9 Chronic obstructive pulmonary disease, unspecified; E78.2 Mixed hyperlipidemia; Z99.81 Dependence on supplemental oxygen; E87.6 Hypokalemia; T50.2X5A Adverse effect of carbonic-anhydrase inhibitors, benzothiadiazides and other diuretics, initial encounter; R79.1 Abnormal coagulation profile; N18.30 Chronic kidney disease, stage 3 unspecified; E11.22 Type 2 diabetes mellitus with diabetic chronic kidney disease; E11.65 Type 2 diabetes mellitus with hyperglycemia; Z20.822 Contact with and (suspected) exposure to COVID-19; Z87.891 Personal history of nicotine dependence; Z79.51 Long term (current) use of inhaled steroids; Z79.84 Long term (current) use of oral hypoglycemic drugs; Z79.899 Other long term (current) drug therapy
CPT/HCPCS: 0241U; 36415; 71045; 74176; 78278; 80048; 80053; 81001; 82272; 82803; 82947; 83735; 83880; 84484; 85025; 85027; 85610; 85730; 86850; 86900; 86901; 86923; 92950; 93005; 99285; A9560; C9113; J3430; P9016; P9047

== ENCOUNTER → 2023-11-18 20:10 | Outpatient (BNV) | payer MEDICARE, SELFPAY | PROVIDERS: Admitting Provider Student in an Organized Health Care Education/Training Program; Emergency Provider Internal Medicine; PCP Internal Medicine; Visit Provider Internal Medicine Cardiovascular Disease | DX: R94.31 Abnormal electrocardiogram [ECG] [EKG] (principal) | CPT/HCPCS: 93010 ==

== ENCOUNTER → 2023-11-18 20:32 | Outpatient (BNV) | payer MEDICARE, SELFPAY | PROVIDERS: Emergency Provider Internal Medicine; Visit Provider Student in an Organized Health Care Education/Training Program | DX: K92.2 Gastrointestinal hemorrhage, unspecified (principal) | CPT/HCPCS: 99223; 99232; 99239; G0180 ==

== ENCOUNTER → 2023-11-18 22:14 | Outpatient (BNV) | payer MEDICARE, SELFPAY | PROVIDERS: Admitting Provider Student in an Organized Health Care Education/Training Program; Emergency Provider Internal Medicine; PCP Internal Medicine; Visit Provider Internal Medicine Gastroenterology | DX: K92.1 Melena (principal); D64.9 Anemia, unspecified; K92.2 Gastrointestinal hemorrhage, unspecified | CPT/HCPCS: 99499 ==

== ENCOUNTER 2023-12-02 10:11 | Outpatient (AMB) | payer MEDICARE, SELFPAY ==
[2023-12-02 10:14] VITALS: BP 124/70; BMI 28.8
--- NOTE | 2023-12-02 10:14 | MHC.OFFVIS ---
Vital Signs 12/02/23 10:14 Height 5 ft 8 in Weight 189 lb 9.561 oz BMI 28.8 BP 124/70 Blood Pressure Location Lt brachial Position Sitting Intake Visit Reasons: [facility] Intake Note: Follow-up [facility] c/o fatigue Wire Taper Required: No Academic Specialist: Academic Specialist Present Accompanied by: Spouse Allergies No Known Allergies Allergy (Verified 11/18/23 20:08) Medication List - Last Reconciled 12/02/23 by Mateo Bird MD acetazolamide 125 mg PO BID albuterol sulfate 90 mcg/actuation 2 inhalations inhalation QID PRN ascorbic acid (vitamin C) 500 mg PO DAILY cyanocobalamin (vitamin B-12) 1,000 mcg PO DAILY digoxin 125 mcg PO SUTUTHSA@2100 ezetimibe 10 mg PO DAILY fluticasone furoate-vilanterol 100-25 mcg/dose (Breo Ellipta) 1 inh inhalation DAILY metformin 500 mg PO BIDWM metolazone 2.5 mg PO DAILY PRN omeprazole 40 mg PO DAILY@0630 potassium chloride ER 40 mEq PO DAILY pravastatin 80 mg PO BEDTIME torsemide 40 mg (2 x 20 mg) PO BID 30 days umeclidinium 62.5 mcg/actuation (Incruse Ellipta) 1 inh inhalation DAILY HPI Comments Details: Deny comes for follow-up, accompanied by his . Recently admitted with GI bleed with significant anemia and symptoms of weakness. Did not have any decompensated congestive heart failure. Continues to do well with heart failure syndrome with no significant leg edema. Currently taking metolazone as well as torsemide therapy. Continues to have exertional shortness of breath. Continues to feel tired from his recent hospitalization and appears to be significantly anemic. Did not undergo any workup and suspected from GI perspective that this was probably related to diverticular bleed. He was advised to hold warfarin for 10 days and restart. There was significantly elevated INR on admission and idea was raised to start her on direct oral anticoagulant therapy which is appropriate. His creatinine remains elevated. He denies any palpitations. No orthopnea, PND. Continues to use oxygen. [facility] Medical History (Updated 12/02/23 @ 13:53 by Mateo Bird MD) Chronic a-fib Severe anemia Hypokalemia Macrocytic anemia Partial small bowel obstruction Anemia CHF (congestive heart failure) Diabetes mellitus CKD (chronic kidney disease) HTN (hypertension) Biatrial enlargement Pulmonary hypertension Chronic heart failure with preserved ejection fraction (HFpEF) HLD (hyperlipidemia) Current use of anticoagulant therapy Surgical History Hx of total hip arthroplasty Hx of colonoscopy Hx of esophagogastroduodenoscopy History of nephrectomy Hx of hernia repair Family History Father Cancer Mother No problems noted. Social History Household Members: Significant Other Housing: House Do you presently have visiting nurse or other home services: No Comment: refused bed alarm Patient Tobacco Use Status: Former Tobacco user Second Hand Smoke Exposure: No Advance Directives Date on File: 06/01/00 service: No Review of Systems Const Denies chills, Denies fatigue, Denies fever(s), Denies frequent falls, Denies weakness, Denies weight gain and Denies weight loss ENT Denies dizziness Card Denies chest pain, Denies leg edema, Denies lightheadedness, Denies palpitations, Denies dyspnea, Denies dyspnea on exertion, Denies orthopnea and Denies other (loss of consciousness) Resp Denies cough, Denies dyspnea and Denies dyspnea on exertion GI Denies hematochezia and Denies change in stool character Musc Denies abnormal gait, Denies muscle weakness, Denies numbness, Denies radiating pain into limb and Denies tingling Neuro Denies abnormal gait, Denies dizziness, Denies frequent falls, Denies numbness, Denies tingling and Denies weakness Endo Denies fatigue and Denies palpitations Physical Exam Vital Signs: Last Vital Signs BP 124/70 12/02/23 10:14 BMI result Body Mass Index 28.8 Const Other: wearing O2 with nasal cannula General: cooperative, comfortable, no acute distress and tired appearing Nutritional Appearance: overweight Orientation/consciousness: patient oriented x3 Neck Neck: Yes normal visual inspection Resp Effort & Inspection: normal respiratory effort Auscultation: rales (each lateral base), no rhonchi and no wheezes Cardio Jugular venous distension: no JVD Rate: regular rate Rhythm: abnormal rhythm Heart sounds: S1 normal heart sound present, S2 normal heart sound present, no murmurs and no rubs GI Inspection: Yes normal to inspection Neuro General: patient oriented x3 Extrem Other: edema in lower legs, R>L, mid calf down to feet Psych Appearance: grossly normal Mental Status: mental status grossly normal Speech and movement: Normal speech and movement present Assessment & Plan Assessment & Plan (1) CHF (congestive heart failure): Code(s): I50.9 - Heart failure, unspecified Category: Medical Plan: Heart failure syndrome as well as chronic respiratory failure related to advanced COPD. Clinically appears to be euvolemic and well compensated on current dose. Advise repeat lab work today. Continue current diuretic dose. Additional metolazone has led to significant improvement in overall heart failure syndrome but has had significant hypokalemia. Continue to follow potassium level and replace aggressively. Management of heart failure was discussed. Continue oxygen therapy. Continue rate control for atrial fibrillation. Overall prognosis is guarded. Goals of therapy were discussed. (2) Chronic a-fib: Code(s): I48.20 - Chronic atrial fibrillation, unspecified Category: Medical Plan: Chronic atrial fibrillation with recent admission with significant GI bleed, lower GI bleed suspected to be diverticular bleed. Was felt by GI that he could be restarted on oral anticoagulation therapy although patient remains concerned. Continues to be weak. Most likely still anemic. Have taken the liberty to start iron therapy. We discussed about potential change to direct oral anticoagulant therapy which will avoid hyperprothrombinemia and potential bleeding risk. Although alternative with Watchman device was also also discussed. Have advise to read literature. Will follow up in the clinic in 3 months time, sooner p.r.n.. Thank you for allowing me to partake in his care Orders: Orders Basic Metabolic Panel Today I50.9 - Heart failure, unspecified Complete Blood Count no Diff Today I50.9 - Heart failure, unspecified Medications: New ferrous gluconate 324 mg PO DAILY 30 tabs 3RF I50.9 - Heart failure, unspecified Coding Level of Care Code Est Pt Level 4 (47098) Diagnoses CHF (congestive heart failure) I50.9 Chronic a-fib I48.20
== END 2023-12-02 10:41 | disposition home or self-care (01) ==
PROVIDERS: PCP Internal Medicine; Visit Provider Internal Medicine Cardiovascular Disease
DX: I50.9 Heart failure, unspecified (principal); I48.20 Chronic atrial fibrillation, unspecified
CPT/HCPCS: 99214

== ENCOUNTER 2023-12-02 10:11 | Outpatient (REF) | payer MEDICARE, SELFPAY ==
[2023-12-02 11:08] LABS: Hematocrit 27.8 % (42.0-52.0); Hemoglobin 8.7 g/dl (14.0-18.0); Mean Corpuscular HGB Conc 31.3 g/dl (31.0-36.0); Mean Corpuscular Hemoglobin 31.1 pg (27.0-33.0); Mean Corpuscular Volume 99.3 fL (80.0-98.0); Mean Platelet Volume 9.4 fL (9.4-12.4); Platelet Count 292 X10*3/uL (160-400); Red Cell Distribution Width 19.4 % (11.0-16.0); White Blood Count 8.2 X10*3/uL (4.8-10.8)
[2023-12-02 11:35] LABS: Anion Gap 12 (12-20); Blood Urea Nitrogen 50 mg/dL (9-16); Calcium 9.6 mg/dL (8.4-10.2); Carbon Dioxide 38 mmol/L (22-29); Chloride 91 mmol/L (96-108); Estimated Glomerular Filt Rate 31; Glucose Random 286 mg/dL (60-115); Potassium 3.2 mmol/L (3.3-5.1); Sodium 138 mmol/L (135-145)
== END 2023-12-02 10:12 | disposition home or self-care (01) ==
LOC: HO.LAB 10:11
PROVIDERS: PCP Internal Medicine; Visit Provider Internal Medicine Cardiovascular Disease
DX: I50.9 Heart failure, unspecified (principal); I48.20 Chronic atrial fibrillation, unspecified
CPT/HCPCS: 36415; 80048; 85027; 99212

== ENCOUNTER 2024-01-05 13:28 | Outpatient (AMB) | payer MEDICARE, SELFPAY ==
[2024-01-05 13:36] VITALS: BP 96/50; PULSE 62; O2SAT 100; BMI 28.7
--- NOTE | 2024-01-05 13:36 | HO.NEPHOV_ITS ---
Vital Signs 01/05/24 13:36 Height 5 ft 8 in Weight 189 lb BMI 28.7 BP 96/50 L Blood Pressure Location Lt brachial Position Sitting Pulse 62 Pulse Source Pulse Oximeter Pulse Oximetry (%) 100 Oxygen Delivery Method Room Air Intake Visit Reasons: Continuing care - CKD/ Conf Insurance Investigator Required: No Accompanied by: Daughter Allergies No Known Allergies Allergy (Verified 01/05/24 13:38) HPI Comments Details: 73-year-old male with pertinent history of congestive heart failure with preserved ejection fraction, chronic hypoxic respiratory failure due to COPD on 2 L supplemental oxygen, [id number] diabetes mellitus, permanent atrial fibrillation on Coumadin, mixed hyperlipidemia, hypertension, chronic kidney disease stage III who is being seen in the office today in follow-up. He recently presented to the emergency department for evaluation of generalized weakness. He had blood in stools one day prior to presentation without any hematemesis. Patient was previously admitted in 08/19/2023 for heme-positive stools where he required 4 unit PRBC transfusion during hospitalization. Patient is on Coumadin for AFib and is compliant with it. In the emergency department, hemoglobin was found to be 6.5. INR found to be elevated. Vitamin K and 2 unit PRBC transfusion was ordered. GI felt this was related to a diverticular bleed secondary to hyperprothrombinemia. A GI bleeding scan was done without any acute abnormalities. Patient's diet was advanced and his stool remain normal correlating with his normal INR. He has seen Dr. Finnegan for a Watchman device. 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 He follows up with Dr. Cartwright in Urology. He had PRBC last week and feels better. He did not have any new specific complaints at the time of this office visit PENDING SALE TO [facility] Medical History (Updated 01/05/24 @ 13:48 by Donny Dodd MD) Chronic a-fib Severe anemia Hypokalemia Macrocytic anemia Partial small bowel obstruction Anemia CHF (congestive heart failure) Diabetes mellitus CKD (chronic kidney disease) HTN (hypertension) Biatrial enlargement Pulmonary hypertension Chronic heart failure with preserved ejection fraction (HFpEF) HLD (hyperlipidemia) Current use of anticoagulant therapy Surgical History Hx of total hip arthroplasty Hx of colonoscopy Hx of esophagogastroduodenoscopy History of nephrectomy Hx of hernia repair Family History Father Cancer Mother No problems noted. Social History Household Members: Significant Other Housing: House Do you presently have visiting nurse or other home services: No Comment: refused bed alarm Patient Tobacco Use Status: Former Tobacco user Second Hand Smoke Exposure: No Advance Directives Date on File: 06/01/00 service: No Review of Systems Const All systems reviewed & are unremarkable except as noted in HPI and below Physical Exam Vital Signs: Last Vital Signs Pulse 62 01/05/24 13:36 BP 96/50 L 01/05/24 13:36 Pulse Ox 100 01/05/24 13:36 Oxygen Delivery Method Room Air 01/05/24 13:36 BMI result Body Mass Index 28.7 Const General: comfortable and no acute distress Orientation/consciousness: patient oriented x3 HEENT Head: Yes normocephalic Mouth: Normal oral and palatal mucosa present Eyes EOM: EOMs intact bilaterally Neck Neck: Yes supple Resp Auscultation: clear to auscultation bilaterally Cardio Jugular venous distension: no JVD Rate: regular rate GI Palpation (GI): Soft to palpation Auscultation: normal bowel sounds General: Yes no CVA tenderness Back/Spine/Pelvis Back: no CVA tenderness Skin General skin exam: no rashes or lesions noted Neuro General: patient oriented x3 and moves all extremities Results Reviewed Nephrology Results: Hgb 8.7 g/dl (14.0-18.0) L 12/02/23 WBC 8.2 X10*3/uL (4.8-10.8) 12/02/23 Plt Count 292 X10*3/uL (160-400) 12/02/23 Sodium 138 mmol/L (135-145) 12/02/23 Potassium 3.2 mmol/L (3.3-5.1) L 12/02/23 Chloride 91 mmol/L (96-108) L 12/02/23 Carbon Dioxide 38 mmol/L (22-29) H 12/02/23 BUN 50 mg/dL (9-16) H 12/02/23 Creatinine 2.12 mg/dL (0.5-1.4) H 12/02/23 Calcium 9.6 mg/dL (8.4-10.2) 12/02/23 Urine Protein Negative mg/dL (Neg-Trace) 11/18/23 Assessment & Plan Assessment & Plan (1) CKD stage 3b, GFR 30-44 ml/min: Code(s): N18.32 - Chronic kidney disease, stage 3b Category: Medical (2) HTN (hypertension): Code(s): I10 - Essential (primary) hypertension Category: Medical Qualifiers: Hypertension type: primary hypertension Qualified Code(s): I10 - Essential (primary) hypertension (3) Solitary kidney, acquired: Code(s): Z90.5 - Acquired absence of kidney Category: Medical Plan Deny has acquired solitary kidney and has been having progressive decline in GFR due to his recurrent GI bleed and cardiopulmonary issues. His urine output is good. His recent serum creatinine was 2.1. He is going to get coronary studies. He should hold his diuretics on the day before on the day and the day after his contrast study. I reduced his metolazone to MWF. We should strongly consider switching him from metformin to SGLT2 inhibitor. He should cut back his vitamin-C and minimize sodium in the diet. I discussed about potential contrast nephropathy, its management and further follow-up. He will be a candidate for Iron and Procrit later. Answered all questions. Time spent retrieving all data, encounter, documentation 47 minutes. Follow-up lab work ordered and F/U appointment given Orders: Orders Calcium Today I10 - Essential (primary) hypertension, N18.32 - Chronic kidney disease, stage 3b, Z90.5 - Acquired absence of kidney Ferritin Today I10 - Essential (primary) hypertension, N18.32 - Chronic kidney disease, stage 3b, Z90.5 - Acquired absence of kidney IRON PROFILE Today I10 - Essential (primary) hypertension, N18.32 - Chronic kidney disease, stage 3b, Z90.5 - Acquired absence of kidney Creatinine Today I10 - Essential (primary) hypertension, N18.32 - Chronic kidney disease, stage 3b, Z90.5 - Acquired absence of kidney Blood Urea Nitrogen Today I10 - Essential (primary) hypertension, N18.32 - Chronic kidney disease, stage 3b, Z90.5 - Acquired absence of kidney Electrolytes Today I10 - Essential (primary) hypertension, N18.32 - Chronic kidney disease, stage 3b, Z90.5 - Acquired absence of kidney Complete Blood Count Auto Diff Today I10 - Essential (primary) hypertension, N18.32 - Chronic kidney disease, stage 3b, Z90.5 - Acquired absence of kidney Coding Level of Care Code Est Pt Level 5 (41344) Diagnoses CKD stage 3b, GFR 30-44 ml/min N18.32 Primary hypertension I10 Hypertension type: primary hypertension Solitary kidney, acquired Z90.5
== END 2024-01-05 14:20 | disposition home or self-care (01) ==
PROVIDERS: PCP Internal Medicine; Visit Provider Internal Medicine Nephrology
DX: I12.9 Hypertensive chronic kidney disease with stage 1 through stage 4 chronic kidney disease, or unspecified chronic kidney disease (principal); N18.32 Chronic kidney disease, stage 3b; Z90.5 Acquired absence of kidney
CPT/HCPCS: 99215

== ENCOUNTER → 2024-01-05 13:28 | Outpatient (BNVA) | payer MEDICARE, SELFPAY | PROVIDERS: PCP Internal Medicine; Visit Provider Internal Medicine Nephrology | DX: I13.0 Hypertensive heart and chronic kidney disease with heart failure and stage 1 through stage 4 chronic kidney disease, or unspecified chronic kidney disease (principal); I50.30 Unspecified diastolic (congestive) heart failure; N18.32 Chronic kidney disease, stage 3b; Z90.5 Acquired absence of kidney | CPT/HCPCS: 99212 ==

== ENCOUNTER → 2024-01-06 10:26 | Outpatient (REF) | payer MEDICARE, SELFPAY ==
--- NOTE | 2024-01-06 10:30 | CA_ITS ---
Transthoracic Echocardiogram Patient (Last, First, Middle): Kiran Law, Gender: Male Date of : 1950 Age: 73 Procedure Date: 01/06/2024 Procedure Type: Transthoracic Echocardiogram Location: OP Height: 172.72 cm Weight: 85.73 kg BSA: 2.00 m2 Heart Rate: bpm BP: 124 / 70 mmHg Cellular Biologist: SHAI Price MD: Mateo Bird MD Shellac Polisher: Mateo Bird MD Symptoms: I50.9 - Heart failure, unspecified Study Quality: Fair ECG Rhythm: Atrial Fibrillation Conclusions: - 1. Normal LV ejection fraction 55-60% with restrictive filling pattern 2. Severe biatrial enlargement 3. Dilated RV with preserved contractility 4. [id number]-yw-[id number] tricuspid regurgitation with moderately elevated right ventricular systolic pressure and mildly elevated right atrial pressures 5. Mildly dilated ascending aorta 6. No gross pericardial effusion Findings Left Ventricle Normal left ventricular size, thickness, and systolic function. The visually estimated ejection fraction is between 55-60%. Spectral Doppler is indicative of a restrictive filling pattern. Right Ventricle Moderately increased right ventricular cavity size. There is normal right ventricular systolic function. Atria Severe biatrial enlargement. There is lipomatous hypertrophy of the interatrial septum. There is no evidence of interatrial shunt. Aortic Valve The aortic valve was not well visualized. There is mild calcification of the aortic valve. There is no aortic valve stenosis. There is trace (trivial) aortic valve regurgitation. Mitral Valve There is mild anterior and posterior mitral leaflet thickening. There is no mitral valve regurgitation. There is no mitral valve stenosis. Pulmonic Valve The pulmonic valve is likely normal. There is trace pulmonic valve regurgitation. Tricuspid Valve Normal tricuspid valve structure. There is mild to moderate tricuspid valve regurgitation. Mildly elevated right atrial pressure. Moderate pulmonary hypertension is present. Great Vessels The pulmonary artery was not well visualized. There is mild dilatation of the ascending aorta measuring 3.80 cm. Small plaque is seen in the sino tubular ridge. Venous The inferior vena cava is moderately dilated and collapses less than 50% with inspiration. Pericardium/Pleural There is no evidence of pericardial effusion. Prior Study Comparison Changes noted compared to prior study dated: 05/01/2023. right atrial pressures appear to have improved Measurements 2D Linear Measurements IVSd: 1.08 0.6-0.9/0.6-1.0 cm LVIDd: 5.54 3.9-5.3/4.2-5.9 cm LVIDd Index: 2.77 2.4-3.2/2.2-3.1 cm/m2 LVIDs: 3.73 2.0-3.6 cm LVPWd: 1.06 0.7-1.1 cm Ao Root: 3.90 2.1-3.5 cm LA Diam: 4.80 2.7-3.8/3.0-4.0 cm LAIDs Index: 2.40 1.5-2.3 cm/m2 LV Mass: 294.27 67-162/88-224 g LV Mass Index: 147.14 43-95/49-115 g/m2 LVOT Diam: 2.50 3.0+(-)1.3 cm 2D Systolic Function EF 4C: 57.80 >55% EF 2C: 57.70 >55% EF BiP: 57.80 >55% Aortic Valve AoV Pk Bora: 1.91 AoV Mn Bora: 1.27 AoV VTI: 0.38 AoV Pk Grad: 15.00 Aov Mn Grad: 8.00 MARY Cont.VTI: 2.53 LVOT LVOT Pk Bora: 1.01 LVOT Mn Bora: 0.59 LVOT VTI: 0.20 LVOT Pk Grad: 4.00 LVOT Mn Grad: 2.00 LVOT Diam: 2.50 LVOT Area: 4.91 Right Ventricle TAPSE (mm): 22.40 TVS' Bora: 13.30 Tricuspid Valve TR Pk Bora: 3.46 TR Pk Grad: 48.00 RA Press: 8.00 RVSP: 56.00 Great Vessels Aorta Ao Root-2D: 3.90 2.0-3.7 cm Ao Asc: 3.80 2.1-3.4 cm Updated in Other Vendor System with Status of Final Mateo Bird MD electronically signed on 01/07/2024 11:35:45 AM with status of Final
== END ==
LOC: HO.CARD 10:26
PROVIDERS: PCP Internal Medicine; Visit Provider Internal Medicine Cardiovascular Disease
DX: I50.9 Heart failure, unspecified (principal)
CPT/HCPCS: 93306

== ENCOUNTER → 2024-01-06 10:30 | Outpatient (BNV) | payer MEDICARE, SELFPAY | PROVIDERS: PCP Internal Medicine; Visit Provider Internal Medicine Cardiovascular Disease | DX: I36.1 Nonrheumatic tricuspid (valve) insufficiency (principal); I27.20 Pulmonary hypertension, unspecified; I51.7 Cardiomegaly | CPT/HCPCS: 93306 ==

== ENCOUNTER 2024-03-02 09:55 | Outpatient (REF) | payer MEDICARE, SELFPAY ==
[2024-03-02 18:03] LABS: MANUAL DIFF FLAG NO
[2024-03-02 18:13] LABS: Basophils Percent Auto 0.4 % (0-2); Eosinophils Absolute Auto 0.2 X10*3/uL (0.0-0.4); Eosinophils Percent Auto 2.4 % (0-4); Hematocrit 25.9 % (42.0-52.0); Hemoglobin 7.6 g/dl (14.0-18.0); Imm Gran Abs Auto 0.05 X10*3/uL (0.00-0.03); Imm Gran Pct Auto 0.7 % (0.0-0.4); Lymphocytes Absolute Auto 0.8 X10*3/uL (1.2-4.9); Lymphocytes Percent Auto 10.5 % (20-40); Mean Corpuscular HGB Conc 29.3 g/dl (31.0-36.0); Mean Corpuscular Hemoglobin 27.5 pg (27.0-33.0); Mean Corpuscular Volume 93.8 fL (80.0-98.0); Mean Platelet Volume 11.3 fL (9.4-12.4); Monocytes Absolute Auto 0.6 X10*3/uL (0.1-1.2); Monocytes Percent Auto 8.7 % (2-11); Neutrophils Absolute Auto 5.5 x10*3/uL (2.0-8.3); Neutrophils Percent Auto 77.3 % (45-73); Platelet Count 286 X10*3/uL (160-400); Red Blood Count 2.76 X10*6/uL (4.60-5.80); Red Cell Distribution Width 17.1 % (11.0-16.0); White Blood Count 7.1 X10*3/uL (4.8-10.8)
[2024-03-02 18:40] LABS: Anion Gap 13 (12-20); Blood Urea Nitrogen 45 mg/dL (9-16); Calcium 8.4 mg/dL (8.4-10.2); Carbon Dioxide 35 mmol/L (22-29); Chloride 90 mmol/L (96-108); Estimated Glomerular Filt Rate 29; Iron 61 mcg/dL (45-160); Percent Iron Saturation 19 % (15-50); Potassium 3.9 mmol/L (3.3-5.1); Sodium 134 mmol/L (135-145); Total Iron Binding Capacity 318 mcg/dL (228-428); Unsaturated Iron Binding 257 ug/dL
[2024-03-02 18:48] LABS: Ferritin 25 ng/mL (20-250)
== END 2024-03-02 09:56 | disposition home or self-care (01) ==
LOC: HO.HKASLDS 09:55
PROVIDERS: Visit Provider Internal Medicine Nephrology
DX: Z90.5 Acquired absence of kidney (principal); I12.9 Hypertensive chronic kidney disease with stage 1 through stage 4 chronic kidney disease, or unspecified chronic kidney disease; N18.32 Chronic kidney disease, stage 3b
CPT/HCPCS: 36415; 80051; 82310; 82565; 82728; 83540; 84520; 85025

== ENCOUNTER 2024-03-08 09:55 | Outpatient (AMB) | payer MEDICARE, SELFPAY ==
--- NOTE | 2024-03-08 10:07 | HO.NEPHOV ---
Vital Signs 03/08/24 10:28 Height 5 ft 8 in Weight 184 lb 4 oz BMI 28.0 BP 110/50 L Blood Pressure Location Rt brachial Position Sitting Pulse 101 H Pulse Source Pulse Oximeter Pulse Oximetry (%) 97 Oxygen Delivery Method Room Air Intake Visit Reasons: CKD- Conf [employer] Terminal Operator Required: No Accompanied by: Self / Same As Patient Allergies No Known Allergies Allergy (Verified 03/08/24 10:29) HPI Comments Details: 73-year-old male with pertinent history of congestive heart failure with preserved ejection fraction, chronic hypoxic respiratory failure due to COPD on 2 L supplemental oxygen, [id number] diabetes mellitus, permanent atrial fibrillation on Coumadin, mixed hyperlipidemia, hypertension, chronic kidney disease stage III who is being seen in the office today in follow-up. He recently presented to the emergency department for evaluation of generalized weakness. He had blood in stools one day prior to presentation without any hematemesis. Patient was previously admitted in 08/19/2023 for heme-positive stools where he required 4 unit PRBC transfusion during that hospitalization. Patient had been on Coumadin for AFib and is compliant with it. In the emergency department, hemoglobin was found to be 6.5. INR found to be elevated. Vitamin K and 2 unit PRBC transfusion was ordered. GI felt this was related to a diverticular bleed secondary to hyperprothrombinemia. A GI bleeding scan was done without any acute abnormalities. Patient's diet was advanced and his stool remain normal correlating with his normal INR. He has seen Dr. Finnegan for a Watchman device. 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 He follows up with Dr. Cartwright in Urology. He had seen Dr Bennett. He had a BM biopsy suggestive of Myelodysplasia. He did not have any new specific complaints at the time of this office visit [facility] Medical History (Updated 03/08/24 @ 10:09 by Donny Dodd MD) Chronic a-fib Severe anemia Hypokalemia Macrocytic anemia Partial small bowel obstruction Anemia CHF (congestive heart failure) Diabetes mellitus CKD (chronic kidney disease) HTN (hypertension) Biatrial enlargement Pulmonary hypertension Chronic heart failure with preserved ejection fraction (HFpEF) HLD (hyperlipidemia) Current use of anticoagulant therapy Surgical History Hx of total hip arthroplasty Hx of colonoscopy Hx of esophagogastroduodenoscopy History of nephrectomy Hx of hernia repair Family History Father Cancer Mother No problems noted. Social History Household Members: Significant Other Housing: House Do you presently have visiting nurse or other home services: No Comment: refused bed alarm Patient Tobacco Use Status: Former Tobacco user Second Hand Smoke Exposure: No Advance Directives Date on File: 06/01/00 service: No Review of Systems Const All systems reviewed & are unremarkable except as noted in HPI and below Physical Exam Vital Signs: Last Vital Signs Pulse 101 H 03/08/24 10:28 BP 110/50 L 03/08/24 10:28 Pulse Ox 97 03/08/24 10:28 Oxygen Delivery Method Room Air 03/08/24 10:28 BMI result Body Mass Index 28.0 Const General: comfortable and no acute distress Orientation/consciousness: patient oriented x3 HEENT Head: Yes normocephalic Mouth: Normal oral and palatal mucosa present Eyes EOM: EOMs intact bilaterally Neck Neck: Yes supple Resp Auscultation: clear to auscultation bilaterally Cardio Jugular venous distension: no JVD Rate: regular rate GI Palpation (GI): Soft to palpation Auscultation: normal bowel sounds General: Yes no CVA tenderness Back/Spine/Pelvis Back: no CVA tenderness Skin General skin exam: no rashes or lesions noted Neuro General: patient oriented x3 and moves all extremities Extrem General: Yes no pedal edema Results Reviewed Nephrology Results: Hgb 7.6 g/dl (14.0-18.0) L 03/02/24 WBC 7.1 X10*3/uL (4.8-10.8) 03/02/24 Plt Count 286 X10*3/uL (160-400) 03/02/24 Sodium 134 mmol/L (135-145) L 03/02/24 Potassium 3.9 mmol/L (3.3-5.1) 03/02/24 Chloride 90 mmol/L (96-108) L 03/02/24 Carbon Dioxide 35 mmol/L (22-29) H 03/02/24 BUN 45 mg/dL (9-16) H 03/02/24 Creatinine 2.23 mg/dL (0.5-1.4) H 03/02/24 Calcium 8.4 mg/dL (8.4-10.2) 03/02/24 Urine Protein Negative mg/dL (Neg-Trace) 11/18/23 Assessment & Plan Assessment & Plan (1) Solitary kidney, acquired: Code(s): Z90.5 - Acquired absence of kidney Category: Medical (2) CKD stage 3b, GFR 30-44 ml/min: Code(s): N18.32 - Chronic kidney disease, stage 3b Category: Medical (3) HTN (hypertension): Code(s): I10 - Essential (primary) hypertension Category: Medical Qualifiers: Hypertension type: primary hypertension Qualified Code(s): I10 - Essential (primary) hypertension (4) Iron deficiency: Code(s): E61.1 - Iron deficiency Category: Medical Plan Deny has acquired solitary kidney and has been having progressive decline in GFR due to his recurrent GI bleed and cardiopulmonary issues. His urine output is good. His recent serum creatinine was 2.23. He is going to get coronary studies. He should hold his diuretics on the day before on the day and the day after his contrast study. I reduced his metolazone to MWF. We should strongly consider switching him from metformin to SGLT2 inhibitor. He should cut back his vitamin-C and minimize sodium in the diet. I discussed about potential contrast nephropathy, its management and further follow-up. He is a candidate for IV Iron which I ordered. He will be a candidate for Procrit later. Answered all questions. Follow-up lab work ordered and F/U appointment given Orders: Orders Complete Blood Count Auto Diff 3 Months E61.1 - Iron deficiency, I10 - Essential (primary) hypertension, N18.32 - Chronic kidney disease, stage 3b, Z90.5 - Acquired absence of kidney Creatinine 3 Months E61.1 - Iron deficiency, I10 - Essential (primary) hypertension, N18.32 - Chronic kidney disease, stage 3b, Z90.5 - Acquired absence of kidney Electrolytes 3 Months E61.1 - Iron deficiency, I10 - Essential (primary) hypertension, N18.32 - Chronic kidney disease, stage 3b, Z90.5 - Acquired absence of kidney Vitamin D 25-OH Total 3 Months E61.1 - Iron deficiency, I10 - Essential (primary) hypertension, N18.32 - Chronic kidney disease, stage 3b, Z90.5 - Acquired absence of kidney Calcium 3 Months E61.1 - Iron deficiency, I10 - Essential (primary) hypertension, N18.32 - Chronic kidney disease, stage 3b, Z90.5 - Acquired absence of kidney Phosphorus 3 Months E61.1 - Iron deficiency, I10 - Essential (primary) hypertension, N18.32 - Chronic kidney disease, stage 3b, Z90.5 - Acquired absence of kidney IRON PROFILE 3 Months E61.1 - Iron deficiency, I10 - Essential (primary) hypertension, N18.32 - Chronic kidney disease, stage 3b, Z90.5 - Acquired absence of kidney Blood Urea Nitrogen 3 Months E61.1 - Iron deficiency, I10 - Essential (primary) hypertension, N18.32 - Chronic kidney disease, stage 3b, Z90.5 - Acquired absence of kidney Parathyroid Hormone Intact 3 Months E61.1 - Iron deficiency, I10 - Essential (primary) hypertension, N18.32 - Chronic kidney disease, stage 3b, Z90.5 - Acquired absence of kidney Coding Level of Care Code Est Pt Level 4 (85036) Diagnoses Solitary kidney, acquired Z90.5 CKD stage 3b, GFR 30-44 ml/min N18.32 Primary hypertension I10 Hypertension type: primary hypertension Iron deficiency E61.1
[2024-03-08 10:28] VITALS: BP 110/50; PULSE 101; O2SAT 97; BMI 28.0
== END 2024-03-08 10:56 | disposition home or self-care (01) ==
PROVIDERS: PCP Internal Medicine; Visit Provider Internal Medicine Nephrology
DX: Z90.5 Acquired absence of kidney (principal); N18.32 Chronic kidney disease, stage 3b; I10 Essential (primary) hypertension; E61.1 Iron deficiency
CPT/HCPCS: 99214

== ENCOUNTER → 2024-03-08 09:55 | Outpatient (BNVA) | payer MEDICARE, SELFPAY | PROVIDERS: PCP Internal Medicine; Visit Provider Internal Medicine Nephrology | DX: I12.9 Hypertensive chronic kidney disease with stage 1 through stage 4 chronic kidney disease, or unspecified chronic kidney disease (principal); N18.32 Chronic kidney disease, stage 3b; Z90.5 Acquired absence of kidney; E61.1 Iron deficiency | CPT/HCPCS: 99212 ==

== ENCOUNTER 2024-03-16 10:10 | Outpatient (AMB) | payer MEDICARE, SELFPAY ==
--- NOTE | 2024-03-16 10:11 | A.OFFVIS_ITS ---
Vital Signs 03/16/24 10:12 Height 5 ft 8 in Weight 183 lb BMI 27.8 BP 128/62 Blood Pressure Location Lt brachial Position Sitting Pulse 88 Pulse Source Pulse Oximeter Intake Visit Reasons: 3 mth f/up r/s Allergies No Known Allergies Allergy (Verified 03/08/24 10:29) Medication List - Last Reconciled 03/16/24 by Mateo Bird MD acetazolamide 125 mg PO BID 60 days albuterol sulfate 90 mcg/actuation 2 inhalations inhalation QID PRN apixaban (Eliquis) 5 mg PO BID ascorbic acid (vitamin C) 500 mg PO DAILY cyanocobalamin (vitamin B-12) 1,000 mcg PO DAILY digoxin 125 mcg PO SUTUTHSA@2100 ezetimibe 10 mg PO DAILY ferrous gluconate 324 mg PO DAILY fluticasone furoate-vilanterol 100-25 mcg/dose (Breo Ellipta) 1 inh inhalation DAILY metformin 500 mg PO BIDWM metolazone 2.5 mg PO DAILY PRN omeprazole 40 mg PO DAILY@0630 potassium chloride ER 40 mEq PO DAILY pravastatin 80 mg PO BEDTIME tiotropium bromide (Spiriva with HandiHaler) 1 cap inhalation DAILY torsemide 40 mg (2 x 20 mg) PO BID 30 days umeclidinium 62.5 mcg/actuation (Incruse Ellipta) 1 inh inhalation DAILY HPI Comments Details: Deny comes for follow-up, accompanied by his . He underwent Watchman device placement on February 02. Continues to remain on Eliquis therapy. Has not heard back from the pacer team for stopping his oral anticoagulation therapy. Since then however he has had multiple blood transfusions as per the . Continues to remain anemic. Just underwent capsule endoscopy testing and still awaiting results. Currently on iron therapy. However in the last 3 months he has done well with no evidence of worsening heart failure syndrome. He has not been hospitalized for heart failure. He is currently taking his diuretic regimen understands management well. No prolonged palpitation irregular heartbeat. Uses oxygen all the time. Heart with exercise he says he does feel tired and fatigued. Denies any lightheadedness, syncope. No clear orthopnea or PND. [facility] Medical History Chronic a-fib Severe anemia Hypokalemia Macrocytic anemia Partial small bowel obstruction Anemia CHF (congestive heart failure) Diabetes mellitus CKD (chronic kidney disease) HTN (hypertension) Biatrial enlargement Pulmonary hypertension Chronic heart failure with preserved ejection fraction (HFpEF) HLD (hyperlipidemia) Current use of anticoagulant therapy Surgical History Hx of total hip arthroplasty Hx of colonoscopy Hx of esophagogastroduodenoscopy History of nephrectomy Hx of hernia repair Family History Father Cancer Mother No problems noted. Social History Household Members: Significant Other Housing: House Do you presently have visiting nurse or other home services: No Comment: refused bed alarm Patient Tobacco Use Status: Former Tobacco user Second Hand Smoke Exposure: No Advance Directives Date on File: 06/01/00 service: No Review of Systems Const Denies weakness ENT Denies dizziness Card Denies chest pain, Denies chest pain with activity, Denies syncope, Denies rapid heart rate, Denies pedal edema, Denies edema, Denies leg edema, Denies lighthead edness, Denies palpitations, Denies dyspnea, Denies dyspnea on exertion and Denies orthopnea Resp Denies cough, Denies dyspnea and Denies dyspnea on exertion GI Denies hematochezia and Denies change in stool character Musc Denies abnormal gait, Denies muscle cramps, Denies muscle weakness, Denies numbness, Denies radiating pain into limb and Denies tingling Neuro Denies abnormal gait, Denies dizziness, Denies syncope, Denies numbness, Denies tingling and Denies weakness Endo Denies palpitations Physical Exam Vital Signs: Last Vital Signs Pulse 88 03/16/24 10:12 BP 128/62 03/16/24 10:12 BMI result Body Mass Index 27.8 Const Other: wearing O2 with nasal cannula General: cooperative, comfortable, no acute distress and tired appearing Nutritional Appearance: overweight Orientation/consciousness: patient oriented x3 Neck Neck: Yes normal visual inspection Resp Effort & Inspection: normal respiratory effort Auscultation: rales (each lateral base), no rhonchi and no wheezes Cardio Jugular venous distension: no JVD Rate: regular rate Rhythm: abnormal rhythm Heart sounds: S1 normal heart sound present, S2 normal heart sound present, no murmurs and no rubs GI Inspection: Yes normal to inspection Neuro General: patient oriented x3 Extrem Other: edema in lower legs, R>L, mid calf down to feet Psych Appearance: grossly normal Mental Status: mental status grossly normal Speech and movement: Normal speech and movement present Assessment & Plan Assessment & Plan (1) CHF (congestive heart failure): Code(s): I50.9 - Heart failure, unspecified Category: Medical Plan: Heart failure preserved ejection fraction with chronic respiratory failure related to severe COPD. Clinically he has done well on current regimen with acetazolamide as well as torsemide at current dose. We discussed management of heart failure. We discussed about daily weight monitoring avoidance of salt loading. Taking metolazone as need be. He has multiple comorbidities including recurrent anemia, chronic kidney disease, COPD with respiratory failure as well as deconditioning. We discussed about participate in regular physical activity as tolerated. Continue oxygen replacement therapy. Continue optimization of pulmonary function. Continue to transfuse as needed for severe anemia. Continue follow with nephrology. (2) Chronic a-fib: Code(s): I48.20 - Chronic atrial fibrillation, unspecified Category: Medical Plan: Chronic rate control atrial fibrillation. Currently on dual therapy. Continue monitor digoxin assay at least on a 6 months basis. Will check it in the near future. Status post Watchman device. He is going to be followed by the team at [facility] to follow with [facility] and discussed and discontinue oral anticoagulation therapy given his recurrent GI bleeding episodes and requirement for transfusi on. Continue iron therapy. (3) Enlarged thoracic aorta: Code(s): I77.89 - Other specified disorders of arteries and arterioles Category: Medical Plan: Mildly enlarged thoracic aorta. No change in therapy. Continue monitor annually by echocardiogram. Will follow up in the clinic in 3 months time, sooner p.r.n.. Thank you for allowing me to partake in his care Orders: Orders Digoxin Today I48.20 - Chronic atrial fibrillation, unspecified Complete Blood Count no Diff Today I48.20 - Chronic atrial fibrillation, unspecified Coding Level of Care Code Est Pt Level 4 (36205) Complex EM visit Add On G2211 Diagnoses CHF (congestive heart failure) I50.9 Chronic a-fib I48.20 Enlarged thoracic aorta I77.89
[2024-03-16 10:12] VITALS: BP 128/62; PULSE 88; BMI 27.8
== END 2024-03-16 10:34 | disposition home or self-care (01) ==
PROVIDERS: PCP Internal Medicine; Visit Provider Internal Medicine Cardiovascular Disease
DX: I50.9 Heart failure, unspecified (principal); I48.20 Chronic atrial fibrillation, unspecified; I77.89 Other specified disorders of arteries and arterioles
CPT/HCPCS: 99214; G2211

== ENCOUNTER 2024-06-09 09:46 | Outpatient (AMB) | payer MEDICARE, SELFPAY ==
--- NOTE | 2024-06-09 10:08 | HO.NEPHOV ---
Vital Signs 06/09/24 10:12 Height 5 ft 8 in Weight 262 lb 2 oz BMI 39.9 BP 110/60 Blood Pressure Location Rt brachial Position Sitting Pulse 66 Pulse Source Pulse Oximeter Pulse Oximetry (%) 99 Oxygen Delivery Method Room Air Intake Visit Reasons: CKD Industry Segment Specialist Required: No Accompanied by: Daughter Allergies No Known Allergies Allergy (Verified 06/09/24 10:12) HPI Comments Details: 73-year-old male with pertinent history of congestive heart failure with preserved ejection fraction, chronic hypoxic respiratory failure due to COPD on 2 L supplemental oxygen, [id number] diabetes mellitus, permanent atrial fibrillation on Coumadin, mixed hyperlipidemia, hypertension, chronic kidney disease stage III who is being seen in the office today in follow-up. 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 A GI bleeding scan was done at that time without any acute abnormalities. He has seen Dr. Finnegan and had a Watchman device. 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 He had seen Dr Bennett. He had a BM biopsy suggestive of Myelodysplasia and has been getting more and more blood transfusion. [facility] Medical History Chronic a-fib Severe anemia Hypokalemia Macrocytic anemia Partial small bowel obstruction Anemia CHF (congestive heart failure) Diabetes mellitus CKD (chronic kidney disease) HTN (hypertension) Biatrial enlargement Pulmonary hypertension Chronic heart failure with preserved ejection fraction (HFpEF) HLD (hyperlipidemia) Current use of anticoagulant therapy Surgical History Hx of total hip arthroplasty Hx of colonoscopy Hx of esophagogastroduodenoscopy History of nephrectomy Hx of hernia repair Family History Father Cancer Mother No problems noted. Social History Household Members: Significant Other Housing: House Do you presently have visiting nurse or other home services: No Comment: refused bed alarm Patient Tobacco Use Status: Former Tobacco user Second Hand Smoke Exposure: No Advance Directives Date on File: 06/01/00 service: No Review of Systems Const All systems reviewed & are unremarkable except as noted in HPI and below Physical Exam Vital Signs: Last Vital Signs Pulse 66 06/09/24 10:12 BP 110/60 06/09/24 10:12 Pulse Ox 99 06/09/24 10:12 Oxygen Delivery Method Room Air 06/09/24 10:12 BMI result Body Mass Index 39.9 Const General: comfortable and no acute distress Orientation/consciousness: patient oriented x3 HEENT Head: Yes normocephalic Mouth: Normal oral and palatal mucosa present Eyes EOM: EOMs intact bilaterally Neck Neck: Yes supple Resp Auscultation: clear to auscultation bilaterally Cardio Jugular venous distension: no JVD Rate: regular rate GI Palpation (GI): Soft to palpation Auscultation: normal bowel sounds General: Yes no CVA tenderness Back/Spine/Pelvis Back: no CVA tenderness Skin General skin exam: no rashes or lesions noted Neuro General: patient oriented x3 and moves all extremities Extrem General: Yes no pedal edema Results Reviewed Nephrology Results: Hgb 7.4 g/dl (14.0-18.0) L 03/16/24 WBC 6.0 X10*3/uL (4.8-10.8) 03/16/24 Plt Count 297 X10*3/uL (160-400) 03/16/24 Sodium 134 mmol/L (135-145) L 03/02/24 Potassium 3.9 mmol/L (3.3-5.1) 03/02/24 Chloride 90 mmol/L (96-108) L 03/02/24 Carbon Dioxide 35 mmol/L (22-29) H 03/02/24 BUN 45 mg/dL (9-16) H 03/02/24 Creatinine 2.23 mg/dL (0.5-1.4) H 03/02/24 Calcium 8.4 mg/dL (8.4-10.2) 03/02/24 Assessment & Plan Assessment & Plan (1) Solitary kidney, acquired: Code(s): Z90.5 - Acquired absence of kidney Category: Medical (2) CKD stage 3b, GFR 30-44 ml/min: Code(s): N18.32 - Chronic kidney disease, stage 3b Category: Medical Plan Deny has acquired solitary kidney and has been having progressive decline in GFR but stable . His urine output is good. His recent serum creatinine is stable.He may a candidate for Procrit . He is going to F/U with Sabrina. Answered all questions. Follow-up lab work ordered and F/U appointment given Orders: Orders Creatinine 4 Months N18.32 - Chronic kidney disease, stage 3b, Z90.5 - Acquired absence of kidney Blood Urea Nitrogen 4 Months N18.32 - Chronic kidney disease, stage 3b, Z90.5 - Acquired absence of kidney Electrolytes 4 Months N18.32 - Chronic kidney disease, stage 3b, Z90.5 - Acquired absence of kidney Coding Level of Care Code Est Pt Level 4 (30855) Diagnoses Solitary kidney, acquired Z90.5 CKD stage 3b, GFR 30-44 ml/min N18.32
[2024-06-09 10:12] VITALS: BP 110/60; PULSE 66; O2SAT 99; BMI 39.9
== END 2024-06-09 10:39 | disposition home or self-care (01) ==
PROVIDERS: PCP Internal Medicine; Visit Provider Internal Medicine Nephrology
DX: Z90.5 Acquired absence of kidney (principal); N18.32 Chronic kidney disease, stage 3b
CPT/HCPCS: 99214

== ENCOUNTER → 2024-06-09 09:46 | Outpatient (BNVA) | payer MEDICARE, SELFPAY | PROVIDERS: PCP Internal Medicine; Visit Provider Internal Medicine Nephrology | DX: E11.22 Type 2 diabetes mellitus with diabetic chronic kidney disease (principal); I12.9 Hypertensive chronic kidney disease with stage 1 through stage 4 chronic kidney disease, or unspecified chronic kidney disease; N18.32 Chronic kidney disease, stage 3b; Z90.5 Acquired absence of kidney | CPT/HCPCS: 99212 ==

== ENCOUNTER 2024-06-28 10:12 | Outpatient (AMB) | payer MEDICARE, SELFPAY ==
[2024-06-28 10:24] VITALS: BP 120/66; PULSE 60; BMI 28.2
--- NOTE | 2024-06-28 10:24 | MHC.OFFVIS ---
Vital Signs 06/28/24 10:24 Height 5 ft 8 in Weight 185 lb 3.013 oz BMI 28.2 BP 120/66 Blood Pressure Location Lt brachial Position Sitting Pulse 60 Intake Visit Reasons: 3 mth f/up Intake Note: 3 month follow-up c/o fatigue Head Of Marketing Analytics Required: No Pipe Production Worker: Pipe Production Worker Present Accompanied by: Spouse Allergies No Known Allergies Allergy (Verified 06/09/24 10:12) Medication List - Last Reconciled 06/28/24 by Mateo Bird MD acetazolamide 125 mg PO BID 60 days albuterol sulfate 90 mcg/actuation 2 inhalations inhalation QID PRN ascorbic acid (vitamin C) 500 mg PO DAILY clopidogrel 75 mg PO DAILY cyanocobalamin (vitamin B-12) 1,000 mcg PO DAILY digoxin 125 mcg PO SUTUTHSA@2100 ezetimibe 10 mg PO DAILY ferrous gluconate 324 mg PO DAILY fluticasone furoate-vilanterol 100-25 mcg/dose (Breo Ellipta) 1 inh inhalation DAILY metformin 500 mg PO BIDWM metolazone 2.5 mg PO DAILY omeprazole 40 mg PO DAILY@0630 potassium chloride ER 20 mEq PO TID pravastatin 80 mg PO DAILY torsemide 40 mg (2 x 20 mg) PO BID 30 days umeclidinium 62.5 mcg/actuation (Incruse Ellipta) 1 inh inhalation DAILY HPI Comments Details: Deny comes for follow-up, accompanied by his . He was had multiple hospitalizations as per the due to significant anemia requiring blood transfusions. At some point in time he said he feels weak and probably as bleeding issues. Has undergone GI procedures. Also seeing Hematology and this concern for some bone marrow issues, patient was not aware any details. He sees Dr. Jackson at [facility] and will obtain his note. He has also been hospitalized and multiple different hospitals including [facility] and this decreased confusion for the patient. He has been taking his diuretic regimen currently as prescribed including torsemide 40 mg b.i.d. along with metolazone and acetazolamide. He is on heavy diuretic regimen. Has some leg edema around the right ankle otherwise leg edema has remained stable. Denies any clear orthopnea, PND. No prolonged palpitation irregular heartbeat. Currently only on Plavix therapy, his aspirin was withheld last week after requiring multiple blood transfusion. Has a follow-up set up next week with Hematology to check his blood counts and if required iron transfusion and/or blood transfusions. He sees oxygen all the time. Remains short of breath with minimal exertion as per the . [facility] Medical History Chronic a-fib Severe anemia Hypokalemia Macrocytic anemia Partial small bowel obstruction Anemia CHF (congestive heart failure) Diabetes mellitus CKD (chronic kidney disease) HTN (hypertension) Biatrial enlargement Pulmonary hypertension Chronic heart failure with preserved ejection fraction (HFpEF) HLD (hyperlipidemia) Current use of anticoagulant therapy Surgical History Hx of total hip arthroplasty Hx of colonoscopy Hx of esophagogastroduodenoscopy History of nephrectomy Hx of hernia repair Family History Father Cancer Mother No problems noted. Social History Household Members: Significant Other Housing: House Do you presently have visiting nurse or other home services: No Comment: refused bed alarm Patient Tobacco Use Status: Former Tobacco user Second Hand Smoke Exposure: No Advance Directives Date on File: 06/01/00 service: No Review of Systems Const Denies chills, Denies fatigue, Denies fever(s), Denies frequent falls, Denies weakness, Denies weight gain and Denies weight loss ENT Denies dizziness Card Denies chest pain, Denies leg edema, Denies lightheadedness, Denies palpitations, Denies dyspnea, Denies dyspnea on exertion, Denies orthopnea and Denies other (loss of consciousness) Resp Denies cough, Denies dyspnea and Denies dyspnea on exertion GI Denies hematochezia and Denies change in stool character Musc Denies abnormal gait, Denies muscle weakness, Denies numbness, Denies radiating pain into limb and Denies tingling Neuro Denies abnormal gait, Denies dizziness, Denies frequent falls, Denies numbness, Denies tingling and Denies weakness Endo Denies fatigue and Denies palpitations Physical Exam Vital Signs: Last Vital Signs Pulse 60 06/28/24 10:24 BP 120/66 06/28/24 10:24 BMI result Body Mass Index 28.2 Const Other: wearing O2 with nasal cannula General: cooperative, comfortable, no acute distress and tired appearing Nutritional Appearance: overweight Orientation/consciousness: patient oriented x3 Neck Neck: Yes normal visual inspection Resp Effort & Inspection: normal respiratory effort Auscultation: rales (each lateral base), no rhonchi and no wheezes Cardio Jugular venous distension: no JVD Rate: regular rate Rhythm: abnormal rhythm Heart sounds: S1 normal heart sound present, S2 normal heart sound present, no murmurs and no rubs GI Inspection: Yes normal to inspection Neuro General: patient oriented x3 Extrem Other: edema in lower legs, R>L, mid calf down to feet Psych Appearance: grossly normal Mental Status: mental status grossly normal Speech and movement: Normal speech and movement present Assessment & Plan Assessment & Plan (1) CHF (congestive heart failure): Code(s): I50.9 - Heart failure, unspecified Category: Medical Plan: Heart failure preserved ejection fraction this elderly gentleman with multiple comorbidities including chronic hypoxemic respiratory failure requiring oxygen related to COPD, chronic atrial fibrillation, chronic kidney disease, recurrent and severe anemia leading to hospitalization probably multifactorial, diuretic resistance, secondary pulmonary hypertension comes for follow-up. Clinically today to me he looks euvolemic. However he remains at high risk for recurrent hospitalization for multiple different reasons which can decompensated heart failure including recurrent anemia as well as respiratory issues. Continue current diuretic regimen. Continue close follow-up with renal function and follow-up with nephrology. Discussed the difficulty in his management and complicated management with his in details. He was significant limitations activity level but have encouraged him to maintain activity level as much as tolerated. Continue oxygen utilization. Continue current rate control with atrial fibrillation. (2) Chronic a-fib: Code(s): I48.20 - Chronic atrial fibrillation, unspecified Category: Medical Plan: Chronic atrial fibrillation requiring rate control with metoprolol and digoxin. Has been difficult and has failed rhythm control in the past. Continue digoxin assay every 3 months. Status post Watchman device for recurrent bleeding and anemia. Despite date has recurrent bleeding episodes possibly and aspirin has been withheld. Also possible bone marrow dysfunction. If he has recurrent bleeding issues can consider stopping Plavix for associated risk as well and discussed with patient and patient's . They understand agree. Continue blood transfusions as needed. Overall prognosis is limited and guarded. Will follow up in the clinic in 3 months time. Greater than 40 minutes was spent in discussing his chronic medical issues and his prognosis. Orders: Orders Digoxin Today I48.20 - Chronic atrial fibrillation, unspecified Basic Metabolic Panel Today I48.20 - Chronic atrial fibrillation, unspecified Coding Level of Care Code Est Pt Level 5 (18975) Complex EM visit Add On G2211 Diagnoses CHF (congestive heart failure) I50.9 Chronic a-fib I48.20
--- OUTSIDE RECORDS SUMMARY | 2024-06-28 11:03 | XMS_ITS | Encounter Summary ---
Author Organization [facility] Address [address] [place] [address] Care Team Providers Care Glued Wood Tester Name Role Phone Grayson Berrios DO Primary Care Provider [phone] Reason for Visit * Episode Based Medications (Routine) - Authorized Specialty Diagnoses / Procedures Referred By Contac t Referred To Contact Diagnoses Chronic renal failure, stage 3 (moderate), unspecified whether stage 3a or 3b CKD (CMS/HCC) Anemia, unspecified type Johny Bennett MD [address] [place] [address] [facility] [address] [place] [phone] Referral ID Status Reason Start Date Expiration Date V isits Requested Visits Authorized [id number] Authorized 06/16/2024 06/16/2025 1 52 Encounter Details Date Type Department Care Team (Latest Contact Info) Description 06/24/2024 12:57 PM EST - 06/24/2024 11:59 PM EST Hospital Encounter [facility] [address] [place] [phone] Johny Bennett MD [address] [place] [address] Anemia, unspecified type (Primary Dx); Chronic renal failure, stage 3 (moderate), unspecified whether stage 3a or 3b CKD ([facility]) Discharge Disposition: Home or Self Care Social History Tobacco Use Types Packs/Day Years Used Date Smoking Tobacco: Former Cigarettes Q uit: 12/31/2010 Smokeless Tobacco: Never Alcohol Use Standard Drinks/Week Comments Not Currently 0 (1 standard drink = 0.6 oz pur e alcohol) Interpersonal Safety Answer Date Record ed Physical Abuse 05/24/2024 Verbal Abuse 05/24/2024 Sex and Gender Information Value Date Recorded Sex Assigned at Male 06/16/2024 10:59 AM EST Gender Identity Male 06/16/2024 10:59 AM EST Sexual Orientation Straight 06/16/2024 10 :59 AM EST Job Start Date Occupation Industry Not on file Not on file Not on file documented as of this encounter Last Filed Vital Signs Vital Sign Reading Time Taken Comments Blood Pressure 112/45 06/24/2024 1:17 PM EST Pulse 59 06/24/2024 1:17 PM EST Temperature 37.2 ??C (99 ??F) 06/24/2024 1:17 PM EST Respiratory Rate - - Oxygen Saturation 100% 06/24/2024 1:17 PM EST Inhaled Oxygen Concentration - - Weight - - Height - - Body Mass Index - - documented in this encounter Medications at Time of Discharge Medication Sig Dispensed Refills Start Date End Date albuterol HFA (PROAIR HFA ; PROVENTIL HFA ; VENTOLIN HFA) 90 mcg/actuation inhaler ascorbic acid (VITAMIN C) 500 mg tablet Take 1 tablet (500 mg total) by mouth 1 (one) time each day. Breo Ellipta 200-25 mcg/dose inhaler Inhale 1 puff by mouth 1 (one) time each day. 03/28/2024 cyanocobalamin (VITAMIN B-12) 1,000 mcg tablet Take 1 tablet (1,000 mcg total) by mouth 1 (one) time each day. digoxin (LANOXIN) 125 mcg (0.125 mg) tablet Take 1 tablet (125 mcg total) by mouth daily. 12/08/2022 ezetimibe (ZETIA) 10 mg tablet Take 1 tablet (10 mg total) by mouth 1 (one) time each day. 11/03/2022 ferrous sulfate 325 mg (65 mg elemental iron) tablet Take 1 tablet (325 mg total) by mouth every morning with breakfast. Incruse Ellipta 62.5 mcg/actuation inhalation Inhale 1 puff by mouth 1 (one) time each day. 03/09/2024 metFORMIN (GLUCOPHAGE) 500 mg tablet Take 1 tablet (500 mg total) by mouth 2 (two) times a day. metOLazone (ZAROXOLYN) 2.5 mg tablet Take 1 tablet (2.5 mg total) by mouth 1 (one) time each day. 12/01/2023 omeprazole (PriLOSEC) [address] capsule Take 1 capsule (40 mg total) by mouth 1 (one) time each day. 05/04/2024 pravastatin (PRAVACHOL) 80 mg tablet Take 1 tablet (80 mg total) by mouth daily. 12/27/2022 torsemide (DEMADEX) 20 mg tablet Take 2 tablets (40 mg total) by mouth 1 (one) time each day. 11/24/2022 documented as of this encounter Discharge Disposition Disposition Code Departure Means Destination Home or Self Care documented in this encounter Progress Notes * Clari Rico MA - 06/24/2024 1:00 PM ESTEncounter addended by: Clari Rico MA on: 06/27/2024 2:32 PM Actions taken: Charge Capture section accepted * Marlee Fraser RN - 06/24/2024 1:00 PM EST Pt arrives today accompanied by for retacrit injection and lab draw. Pt reports feeling tired.Labs drawn LEFT AC (cbcd and t&s)- pt tolerated well. Medications allergies and assessment reviewed. Medication released to pharmacy. Retacrit injection given LEFT arm SQ. Pt tolerated well. Pt will be notified of lab results and when to return. Pt left unit stable via wheelchair accompanied bywife. documented in this encounter Plan of Treatment Upcoming Encounters Date Type Department Care Team (Late st Contact Info) Description 07/04/2024 11:00 AM EST Appointment [facility] [address] [facility] [place] [phone] 07/15/2024 11:45 AM EST [facility] [address] [phone] Jessica Neal MD [address] [phone] 07/28/2024 10:15 AM EST Office Visit [facility] Hematology Oncology [address] [place] [phone] Johny Bennett MD [address] [place] [address] documented as of this encounter Procedures Procedure Name Priority Date/Time Associated Diagnosis Comments CBC WITH AUTO DIFFERENTIAL Routine 06/24/2024 1:33 PM EST Chronic renal failure, stage 3 (moderate), unspecified whether stage 3a or 3b CKD (CMS/HCC) Anemia, unspecified type CBC AND DIFFERENTIAL Routine 06/24/2024 1:33 PM EST Chronic renal failure, stage 3 (moderate), unspecified whether stage 3a or 3b CKD (CMS/HCC) Anemia, unspecified type TYPE AND SCREEN Routine 06/24/2024 1:33 PM EST Anemia, unspecified type documented in this encounter Results * (ABNORMAL) CBC auto differential (06/24/2024 1:33 PM EST) WBC 4.6(L) 4.8 - 10.8 K/mcL LAB HEMETOLOGY METHOD 06/24/2024 2:48 PM EST [facility] RBC 1.90(L) 4.50 - 5.50 M/mcL LAB HEMETOLOGY METHOD 06/24/2024 2:48 PM EST [facility] Hemoglobin 5.0(LL) 13.5 - 17.5 g/dL LAB HEMETOLOGY METHOD 06/24/2024 2:48 PM [facility] Hematocrit 17.9(LL) 42.0 - 54.0 % LAB HEMETOLOGY METHOD 06/24/2024 2:48 PM [facility] MCV 94.2 79.0 - 98.0 FL LAB HEMETOLOGY METHOD 06/24/2024 2:48 PM [facility] MCH 26.3(L) 27.0 - 32.0 pcg LAB HEMETOLOGY METHOD 06/24/2024 2:48 PM [facility] MCHC 27.9(L) 32.0 - 37.0 g/dL LAB HEMETOLOGY METHOD 06/24/2024 2:48 PM [facility] RDW 18.6(H) 11.0 - 15.0 % LAB HEMETOLOGY METHOD 06/24/2024 2:48 PM [facility] Platelets 246 130 - 400 K/mcL LAB HEMETOLOGY METHOD 06/24/2024 2:48 PM [facility] MPV 10.2 7.0 - 11.0 FL LAB HEMETOLOGY METHOD 06/24/2024 2:48 PM [facility] NRBC 0.4 <1.0 % LAB HEMETOLOGY METHOD 06/24/2024 2:48 PM [facility] NRBC Absolute 0.02 <0.10 K/mcL LAB HEMETOLOGY METHOD 06/24/2024 2:48 PM [facility] Neutrophils Relative 76.6 % LAB HEMETOLOGY METHOD 06/24/2024 2:48 PM [facility] Lymphocytes Relative 10.4 % LAB HEMETOLOGY METHOD 06/24/2024 2:48 PM [facility] Monocytes Relative 10.7 % LAB HEMETOLOGY METHOD 06/24/2024 2:48 PM [facility] Eosinophils Relative 1.5 % LAB HEMETOLOGY METHOD 06/24/2024 2:48 PM EST [facility] Basophils Relative 0.4 % LAB HEMETOLOGY METHOD 06/24/2024 2:48 PM [facility] Immature Granulocytes Relative 0.4 % LAB HEMETOLOGY METHOD 06/24/2024 2:48 PM [facility] Neutrophils Absolute 3.52 1.50 - 7.00 K/mcL LAB HEMETOLOGY METHOD 06/24/2024 2:48 PM EST [facility] Lymphocytes Absolute 0.48(L) 1.00 - 5.00 K/mcL LAB HEMETOLOGY METHOD 06/24/2024 2:48 PM [facility] Monocytes Absolute 0.49 0.20 - 1.00 K/mcL LAB HEMETOLOGY METHOD 06/24/2024 2:48 PM EST [facility] Eosinophils Absolute 0.07 0.00 - 0.50 K/mcL LAB HEMETOLOGY METHOD 06/24/2024 2:48 PM EST [facility] Basophils Absolute 0.02 0.00 - 0.20 K/mcL LAB HEMETOLOGY METHOD 06/24/2024 2:48 PM [facility] Immature Granulocytes Absolute 0.02 0.00 - 0.03 K/mcL LAB HEMETOLOGY METHOD 06/24/2024 2:48 PM EST [facility] Blood Venous blood specimen / Unknown Venipuncture / Unknown 06/24/2024 1:33 PM EST 06/24/2024 1:53 PM EST Johny Bennett MD LAB BLOOD ORDERABLES [facility] [address] [place] [address], * Type and screen (06/24/2024 1:33 PM EST) ABO Group O 06/24/2024 3:12 PM EST [facility] Rh Type Positive 06/24/2024 3:12 PM EST [facility] Antibody Screen Negative 06/24/2024 3:12 PM EST [facility] Blood Venous blood specimen / Unknown Venipuncture / Unknown 06/24/2024 1:33 PM EST 06/24/2024 1:53 PM EST Johny Bennett MD LAB BLOOD BANK TEST ORDERABLES [facility] [address] [place] [address], documented in this encounter Visit Diagnoses Diagnosis Anemia, unspecified type- Primary Chronic renal failure, stage 3 (moderate), unspecified whether stage 3a or 3b CKD (CMS/HCC) documented in this encounter Administered Medications Inactive Administered Medications - up to 3 most recent administrations Medication Order MAR Action Action Date Dose Rate Site epoetin donna-epbx (RETACRIT) injection 20,000 Units 20,000 Units, subcutaneous, Once, On Thu06/24/24 at 1330, For 1 dose Given 06/24/2024 1:35 PM EST 20,000 Units Left Upper Arm (Back) documented in this encounter Orders Medications Ordered That Bryon ht Not Have Been Administered Count Last Ordered Date First Ordered Date epoetin donna-epbx (RETACRIT) injection 20,000 Units 06/24/2024 Appointment Requests Count Last Ordered Date Fi rst Ordered Date ONCBCN INFUSION APPOINTMENT REQUEST 04 documented in this encounter Care Teams Glued Wood Tester Relationship Specialty Start Date End Date Grayson Berrios DO [address] [place] [phone] PCP - General 08/22/15 documented as of this encounter
--- OUTSIDE RECORDS SUMMARY | 2024-06-28 11:03 | XMS_ITS | Clinical Summary ---
Author Organization [facility] Address [address] [place] [address] Care Team Providers Care Therapeutic Dietitian Name Role Phone Grayson Berrios DO Primary Care Provider [phone] Allergies No known active allergies Medications Medication Sig Dispensed Refills Start Date End Date Status warfarin (COUMADIN) 5 MG tablet 0 02/23/2008 Active torsemide (DEMADEX) 20 MG tablet Take 2 tablets (40 mg total) by mouth daily. 0 11/24/2022 Active torsemide (DEMADEX) 20 MG tablet 0 12/26/2022 Active Spiriva HandiHaler 18 MCG inhalation capsule INHALE THE CONTENTS OF 1 CAPSULE BY MOUTH ONCE DAILY USING THE SPIRIVA DEVICE 0 01/01/2023 Active simvastatin (ZOCOR) 80 MG tablet Take 1 tablet (80 mg total) by mouth daily. 0 12/09/2007 Active pravastatin (PRAVACHOL) tablet 80 mg Take 1 tablet (80 mg total) by mouth daily. 0 12/27/2022 Active metFORMIN HCl ER 500 MG/5ML SRER 0 Active metFORMIN (GLUCOPHAGE) tablet 500 mg Take 1 tablet (500 mg total) by mouth 2 (two) times a day. 0 Active lisinopril (PRINIVIL,ZESTRIL) tablet 2.5 mg Take 1 tablet (2.5 mg total) by mouth. 0 03/29/2021 Active hydroCHLOROthiazide (MICROZIDE) 12.5 MG capsule 0 Active glipiZIDE (GLUCOTROL) tablet 10 mg 0 Active albuterol 108 (90 Base) MCG/ACT inhaler 0 Active carvedilol (COREG) 25 MG tablet Take by mouth. 0 02/22/2008 Active digoxin (LANOXIN) 125 MCG tablet Take 1 tablet (125 mcg total) by mouth daily. 0 12/08/2022 Active ezetimibe (ZETIA) tablet 10 mg Take 1 tablet (10 mg total) by mouth daily. 0 11/03/2022 Active dilTIAZem (CARDIZEM CD) 180 MG 24 hr capsule Take 1 capsule (180 mg total) by mouth daily. 0 Active ascorbic acid (VITAMIN C) 500 MG tablet Take 1 tablet (500 mg total) by mouth daily. 0 Active vitamin B-12 (CYANOCOBALAMIN) tablet 1000 mcg Take 1 tablet (1,000 mcg total) by mouth daily. 0 Active budesonide-formotero l (SYMBICORT) 160-4.5 MCG/ACT inhaler Inhale 2 inhalations into the lungs 2 (two) times a day. 0 Active ferrous sulfate 325 (65 FE) MG tablet Take 1 tablet (325 mg total) by mouth every morning with breakfast. 0 Active Active Problems Problem Noted Date Diagnosed Date Stage 3a chronic kidney disease 11/26/2020 01/21/2024 Social History Tobacco Use Types Packs/Day Years Used Date Smoking Tobacco: Former Cigarettes Smokeless Tobacco: Never Tobacco Cessation:Counseling Given: Not Answered Alcohol Use Standard Drinks/Week Comments Not Currently 0 (1 standard drink = 0.6 oz pur e alcohol) Sex and Gender Information Value Date Recorded Sex Assigned at Male 12/26/2022 2:39 PM EDT Gender Identity Male 12/17/2023 9:39 AM EDT Sexual Orientation Straight 12/17/2023 9: 39 AM EDT Job Start Date Occupation Industry Not on file Not on file Not on file Last Filed Vital Signs Vital Sign Reading Time Taken Comments Blood Pressure 106/45 03/09/2024 4:01 PM EDT Pulse 62 03/09/2024 4:01 PM EDT Temperature 36.9 ??C (98.4 ??F) 03/09/2024 4:01 PM ED T Respiratory Rate 16 03/09/2024 4:01 PM EDT Oxygen Saturation 98% 02/25/2024 8:31 AM EDT Inhaled Oxygen Concentration - - Weight 84.1 kg (185 lb 6.4 oz) 02/10/2024 11:04 AM EDT Height - - Body Mass Index - - Plan of Treatment Health Maintenance Due Date Last Done Comments Hepatitis C Screening 1949 Depression Screening 1961 Preventative Health Evaluation 1967 DTap / Tdap / Td (1 - Tdap) 1968 Shingrix-Zoster Vaccine (1 of 2) 1968 Colon Cancer Screening (Colonoscopy) 1994 Fall Risk Assessment 2014 Pneumococcal Vaccine (3 of 3 - PPSV23 or PCV20) 03/13/2018 02/16/2015, 03/13/2013 COVID-19 Vaccine ( - season) 2024 01/24/2022, 03/12/2021, 08/24/2020, Additional history exists Influenza Vaccine (#1) 2024 2, 04/05/2021, 02/01/2020, Additional history exists RSV Adult > 60+ Yrs or (1 - 1-dose 75+ series) 2024 Hepatitis B Vaccines Aged Out No long er eligible based on patient's age to complete this topic RSV Ped < 20 months Aged Out No longe r eligible based on patient's age to complete this topic Care Teams Therapeutic Dietitian Relationship Specialty Start Date End Date Grayson Berrios DO [address] [place] [id number] PCP - General Internal Medicine 12/26/22
--- OUTSIDE RECORDS SUMMARY | 2024-06-28 11:04 | XMS_ITS | Encounter Summary ---
Author Organization [facility] Address [address] [place] [address] Care Team Providers Care Color Control Operator Name Role Phone Grayson Berrios DO Primary Care Provider [phone] Encounter Details Date Type Department Care Team (Late Contact Info) Description 06/15/2024 12:45 PM EST Lab Draw Station - [address] [phone] Iron deficiency anemia, unspecified (Primary Dx) Social History Tobacco Use Types Packs/Day Years [...] on file documented as of this encounter Plan of Treatment Upcoming Encounters Date Type Department Care Team (Late Contact Info) Description 07/04/2024 11:[address] [facility] [address] [place] [phone] 07/15/2024 11:45 AM EST Office Visit Pulmonolgy - [place] [address] [phone] Jessica Neal MD [address] [address] 07/28/2024 10:15 AM EST Office Visit [facility] Hematology Oncology [address] [place] [phone] Johny Bennett MD [address] [place] [address] documented as of this encounter Procedures Procedure Name Priority Date/Time Associated Diagnosis Comments CBC WITH AUTO DIFFERENTIAL Routine 06/15/2024 12:43 PM EST Iron deficiency anemia, unspecified RETICULOCYTE COUNT Routine 06/15/2024 12 :43 PM EST Iron deficiency anemia, unspecified CBC AND DIFFERENTIAL Routine 06/15/2024 12:43 PM EST Iron deficiency anemia, unspecified TYPE AND SCREEN Routine 06/15/2024 12:43 PM EST Iron deficiency anemia, unspecified documented in this encounter Results * (ABNORMAL) Reticulocyte count (06/15/2024 12:43 PM EST) Retic Ct Abs 0.120(H) 0.030 - 0.090 M/mcL LAB HEMETOLOGY METHOD 06/17/2024 8:47 AM EST [facility] Retic Ct Pct 7.1(H) 0.7 - 1.7 % LAB HEMETOLOGY METHOD 06/17/2024 8:47 AM [facility] Immature Retic Fract 25.6(H) 2.3 - 15.9 % LAB HEMETOLOGY METHOD 06/17/2024 8:47 AM [facility] Reticulocyte Hemoglobin 17.4(L) >29.0 pcg LAB HEMETOLOGY METHOD 06/17/2024 8:47 AM [facility] Blood Venous blood specimen / Unknown Venipuncture / Unknown 06/15/2024 12:43 PM EST 06/15/2024 4:46 PM EST Johny Bennett MD LAB BLOOD ORDERABLES [facility] [address] [place] [address], * (ABNORMAL) CBC auto differential (06/15/2024 12:43 PM EST) WBC 5.9 4.8 - 10.8 K/mcL LAB HEMETOLOGY METHOD 06/15/2024 5:37 PM [facility] RBC 1.70(L) 4.50 - 5.50 M/mcL LAB HEMETOLOGY METHOD 06/15/2024 5:37 PM [facility] Hemoglobin 4.6(LL) 13.5 - 17.5 g/dL LAB HEMETOLOGY METHOD 06/15/2024 5:37 PM [facility] Hematocrit 17.2(LL) 42.0 - 54.0 % LAB HEMETOLOGY METHOD 06/15/2024 5:37 PM [facility] MCV 103.0(H) 79.0 - 98.0 FL LAB HEMETOLOGY METHOD 06/15/2024 5:37 PM [facility] MCH 27.7 27.0 - 32.0 pcg LAB HEMETOLOGY METHOD 06/15/2024 5:37 PM [facility] MCHC 26.9(L) 32.0 - 37.0 g/dL LAB HEMETOLOGY METHOD 06/15/2024 5:37 PM [facility] RDW 21.2(H) 11.0 - 15.0 % LAB HEMETOLOGY METHOD 06/15/2024 5:37 PM [facility] Platelets 421(H) 130 - 400 K/mcL LAB HEMETOLOGY METHOD 06/15/2024 5:37 PM [facility] MPV 10.5 7.0 - 11.0 FL LAB HEMETOLOGY METHOD 06/15/2024 5:37 PM [facility] NRBC 0.0 <1.0 % LAB HEMETOLOGY METHOD 06/15/2024 5:37 PM [facility] NRBC Absolute 0.00 <0.10 K/mcL LAB HEMETOLOGY METHOD 06/15/2024 5:37 PM [facility] Neutrophils Relative 76.9 % LAB HEMETOLOGY METHOD 06/15/2024 5:37 PM [facility] Lymphocytes Relative 10.7 % LAB HEMETOLOGY METHOD 06/15/2024 5:37 PM [facility] Monocytes Relative 9.8 % LAB HEMETOLOGY METHOD 06/15/2024 5:37 PM [facility] Eosinophils Relative 1.9 % LAB HEMETOLOGY METHOD 06/15/2024 5:37 PM [facility] Basophils Relative 0.2 % LAB HEMETOLOGY METHOD 06/15/2024 5:37 PM [facility] Immature Granulocytes Relative 0.5 % LAB HEMETOLOGY METHOD 06/15/2024 5:37 PM [facility] Neutrophils Absolute 4.54 1.50 - 7.00 K/mcL LAB HEMETOLOGY METHOD 06/15/2024 5:37 PM [facility] Lymphocytes Absolute 0.63(L) 1.00 - 5.00 K/mcL LAB HEMETOLOGY METHOD 06/15/2024 5:37 PM [facility] Monocytes Absolute 0.58 0.20 - 1.00 K/mcL LAB HEMETOLOGY METHOD 06/15/2024 5:37 PM EST [facility] Eosinophils Absolute 0.11 0.00 - 0.50 K/[facility] LAB HEMETOLOGY METHOD 06/15/2024 5:37 PM EST [facility] Basophils Absolute 0.01 0.00 - 0.20 K/[facility] LAB HEMETOLOGY METHOD 06/15/2024 5:37 PM EST [facility] Immature Granulocytes Absolute 0.03 0.00 - 0.03 K/[facility] LAB HEMETOLOGY METHOD 06/15/2024 5:37 PM EST [facility] Blood Venous blood specimen / Unknown Venipuncture / Unknown 06/15/2024 12:43 PM EST 06/15/2024 4:46 PM EST Johny Bennett MD LAB BLOOD ORDERABLES [facility] [address] [place] [address], [place] [phone] * Type and screen (06/15/2024 12:43 PM EST) ABO Group O 06/15/2024 6:05 PM [facility] Rh Type Positive 06/15/2024 6:05 PM EST [facility] Antibody Screen Negative 06/15/2024 6:05 PM EST [facility] Blood Venous blood specimen / Unknown Venipuncture / Unknown 06/15/2024 12:43 PM EST 06/15/2024 4:42 PM EST Johny Bennett MD LAB BLOOD BANK TEST ORDERABLES [facility] [address] [place] [address], [place] [phone] documented in this encounter Visit Diagnoses Diagnosis Iron deficiency anemia, unspecified- Primary documented in this encounter Care Teams Color Control Operator Relationship Specialty Start Date End Date Grayson Berrios DO [address] [place] [phone] PCP - General 08/22/15 documented as of this encounter
--- OUTSIDE RECORDS SUMMARY | 2024-06-28 11:04 | XMS_ITS | Encounter Summary ---
Author Organization [facility] Address [address] [place] [address] Care Team Providers Care Fan Balancer Name Role Phone Grayson Brerios DO Primary Care Provider [phone] Reason for Visit * Episode Based Medications (Routine) - Pending Review Specialty Diagnoses / Procedures Referred By Contkaela t Referred To Contact Diagnoses Myelodysplastic syndrome (CMS/HCC) Johny Bennett MD [address] [place] [address] [facility] [address] [place] [phone] Referral ID Status Reason Start Date Expiration Date V isits Requested Visits Authorized [id number] Pending Review 04/06/2024 04/06/2025 1 1 Encounter Details Date Type Department Care Team (Latest Contact Info) Description 06/16/2024 10:30 AM EST - 06/16/2024 11:59 PM EST Hospital Encounter [facility] Infusion Center [address] [place] [phone] Johny Bennett MD [address] [place] [address] Myelodysplastic syndrome (CMS/HCC) (Primary Dx); Iron deficiency; Anemia, unspecified type; Chronic renal insufficiency, stage 4 (severe) (CMS/[facility]) Discharge Disposition: Home or Self Care Social [...] Sign Reading Time Taken Comments Blood Pressure 114/40 06/16/2024 4:22 PM EST Pulse 72 06/16/2024 4:22 PM EST Temperature 36.8 ??C (98.2 ??F) 06/16/2024 4:22 PM ES T Respiratory Rate 22 06/16/2024 4:22 PM EST Oxygen Saturation 100% 06/16/2024 11:07 AM EST Inhaled Oxygen Concentration - - Weight [...] Progress Notes * Clari Rico MA - 06/16/2024 10:30 AM ESTEncounter addended by: Clari Rico MA on: 06/17/2024 8:45 AM Actions taken: Charge Capture section accepted * Marlee Fraser RN - 06/16/2024 10:30 AM EST Pt arrives today accompanied by daughter in law and for PRBC transfusion. Pt reports feeling tired. Order for transfuse [address] PIV inserted LEFT fa. Pt tolerated well. 1210 first unit up and infusing. Pt tolerating well. Pt resting in chair watching tv. Call finnegan in reach. 1445 First unit complete. 2nd unit up and running. Pt up to bathroom with 1 assist. . 1630 2nd unit complete. Pt tolerated well. Iron studies drawn peripherally. Pt tolerated well. PIV removed without incident. Pt to return tomorrow for Procrit inj. Pt left unit via wheelchair assisted by staff. Stable at discharge. documented in this encounter Plan of Treatment Upcoming Encounters Date Type Department Care Team (Late st Contact Info) Description 07/04/2024 11:00 AM EST Appointment [facility] [address] [facility] 2nd [place] [phone] 07/15/2024 11:45 AM EST Office Visit Pulmonolgy - [place] [address] [phone] Jessica Neal MD [address] [address] 07/28/2024 10:15 AM EST Office Visit [facility] Hematology Oncology [address] [place] [phone] Johny Bennett MD [address] [place] [address] documented as of this encounter Procedures Procedure Name Priority Date/Time Associated Diagnosis Comments ERYTHROPOIETIN Routine 06/16/2024 4:31 PM EST Myelodysplastic syndrome (CMS/HCC) Chronic renal insufficiency, stage 4 (severe) (CMS/HCC) IRON AND TIBC Routine 06/16/2024 4:31 PM EST Myelodysplastic syndrome (CMS/HCC) Iron deficiency Anemia, unspecified type FERRITIN Routine 06/16/2024 4:31 PM EST Myelodysplastic syndrome (CMS/HCC) Iron deficiency Anemia, unspecified type TRANSFUSE RED BLOOD CELLS Routine 06/16/2024 2:28 PM EST Myelodysplastic syndrome (CMS/HCC) TRANSFUSE RED BLOOD CELLS Routine 06/16/2024 11:54 AM EST Myelodysplastic syndrome (CMS/HCC) documented in this encounter Results * (ABNORMAL) Erythropoietin (06/16/2024 4:31 PM EST) Erythropoietin 586.4(H) 2.6 - 18.5 mIU/mL 06/20/2024 2:17 PM EST [facility] Comment: Test performed at [facility], [address], [place], [place] [address] ? [phone] Brenda Murray MD, PhD - Prison Psychiatrist Blood Venous blood specimen / Unknown Venipuncture / Unknown 06/16/2024 4:31 PM EST 06/16/2024 4:39 PM EST Johny Bennett MD LAB BLOOD ORDERABLES [facility] [address] [place] [address] * (ABNORMAL) Ferritin (06/16/2024 4:31 PM EST) Ferritin 25(L) 26 - 388 ng/mL LAB CHEMISTRY METHOD 06/16/2024 9:[address] [facility] Blood Venous blood specimen / Unknown Venipuncture / Unknown 06/16/2024 4:31 PM EST 06/16/2024 4:39 PM EST Johny Bennett MD LAB BLOOD ORDERABLES [facility] [address] [place] [address], * (ABNORMAL) Iron and TIBC (06/16/2024 4:31 PM EST) Iron 25(L) 50 - 160 mcg/dL LAB CHEMISTRY METHOD 06/16/2024 5:[address] [facility] TIBC 418 250 - 450 mcg/dL LAB CHEMISTRY METHOD 06/16/2024 5:[address] [facility] Iron Saturation 6(L) 20 - 50 % LAB CHEMISTRY METHOD 06/16/2024 5:[address] [facility] Blood Venous blood specimen / Unknown Venipuncture / Unknown 06/16/2024 4:31 PM EST 06/16/2024 4:39 PM EST Johny Bennett MD LAB BLOOD ORDERABLES [facility] [address] [place] [address], * Transfuse RBC (06/16/2024 4:25 PM EST) Johny eBnnett MD BLOOD TRANSFUSION OR DERABLES * Transfuse RBC: 2 Units (06/16/2024 4:25 PM EST) Johny Bennett MD BLOOD TRANSFUSION OR DERABLES * Transfuse RBC (06/16/2024 2:22 PM EST) Johny Bennett MD BLOOD TRANSFUSION OR DERABLES documented in this encounter Visit Diagnoses Diagnosis Myelodysplastic syndrome (CMS/HCC)- Primary Myelodysplastic syndrome, unspecified Iron deficiency Disorders of iron metabolism Anemia, unspecified type Chronic renal insufficiency, stage 4 (severe) (CMS/HCC) documented in this encounter Care Teams Fan Balancer Relationship Specialty Start Date End Date Grayson Berrios DO [address] [place] [phone] PCP - General 08/22/15 documented as of this encounter
--- OUTSIDE RECORDS SUMMARY | 2024-06-28 11:04 | XMS_ITS | Encounter Summary ---
Author Organization [facility] Address [address] [place] [address] Care Team Providers Care Farmworker Vegetable Name Role Phone Grayson Berrios DO Primary Care Provider [phone] Encounter Details Date Type Department Care Team (Late st Contact Info) Description 06/27/2024 Telephone [facility] [address] [phone] Johny Bennett MD [address] [place] [address] Social History Tobacco Use Types Packs/Day Years [...] on file documented as of this encounter Progress Notes * Halina Mora RN - 06/27/2024 12:14 PM EST Spoke with Mrs Law and provided the number and the MD name that Dr. Bennett would like him to see. She will call back if she continues to have difficulty reaching the NPC. * Leena Saeed - 06/27/2024 11:49 AM EST Patient's just got home from dropping patient off for a transfusion. She said there was a message on her voicemail from Jen at [facility] but she was unable to make out the phone number thatwas left on the voicemail. Seeking assistance. [phone] documented in this encounter Plan of Treatment Upcoming Encounters Date Type Department Care Team (Late st Contact Info) Description 07/04/2024 11:00 AM EST Appointment [facility] [address] [place] [phone] 07/15/2024 11:45 AM EST Office Visit Pulmonol - [place] [address] [phone] Jessica Neal MD [address] [address] 07/28/2024 10:15 AM EST Office Visit [facility] Hematology Oncology [address] [place] [phone] Johny Bennett MD [address] [place] [address] documented as of this encounter Visit Diagnoses Not on filedocumented in this encounter Care Teams Farmworker Vegetable Relationship Specialty Start Date End Date Grayson Berrios DO [address] [place] [phone] PCP - General 08/22/15 documented as of this encounter
--- OUTSIDE RECORDS SUMMARY | 2024-06-28 11:04 | XMS_ITS | Encounter Summary ---
Author Organization [facility] Address [address] [place] [address] Care Team Providers Care Rejected Items Clerk Name Role Phone Grayson Berrios DO Primary Care Provider [phone] Reason for Visit * Reason Comments Follow-up Encounter Details Date Type Department Care Team (Latest Contact Info) Description 06/16/2024 10:15 AM EST Office Visit [facility] Hematology Oncology [address] [place] [phone] Johny Bennett MD [address] [place] [address] Myelodysplastic syndrome (CMS/HCC) (Primary Dx); Chronic renal insufficiency, stage 4 (severe) (CMS/HCC) Social History Tobacco Use Types Packs/Day Years Used Date Smoking Tobacco: Former Cigarettes Q uit: 12/31/2010 Smokeless Tobacco: Never Tobacco Cessation:Counseling Given: Not [...] Sign Reading Time Taken Comments Blood Pressure 112/53 06/16/2024 10:11 AM EST Pulse 91 06/16/2024 10:11 AM EST Temperature 36.6 ??C (97.8 ??F) 06/16/2024 1 0:11 AM EST Respiratory Rate - - Oxygen Saturation 100% 06/16/2024 10: 11 AM EST 2L nasal cannula Inhaled Oxygen Concentration - - Weight 78.9 kg (174 lb) 06/16/2024 10:1 1 AM EST Height - - Body Mass Index 26.46 05/24/2024 9:02 PM EST documented in this encounter Progress Notes * Johny Bennett MD - 06/16/2024 10:15 AM EST CHIEF COMPLAINT: Follow-up IDENTIFIER:Kiran Law is a 74 y.o. male. HPI: 74-year-old man who has multiple medical problem, diagnosed last year with myelodysplastic syndrome, (patient also has MGUS) patient has been on RBC transfusion as needed but lately patientrequirement of RBC infusion is very frequent, unfortunately patient had Watchman procedure so he stopped apixaban but is still taking Plavix which may be causing some GI bleeding issues ROS: Patient has been feeling exhausted and fatigued Patient denies any obvious blood loss but there is a question of darker stool because of blood thinner, has history of duodenitis Denies any chest pain or pressure Sometimes get palpitation Denies any significant symptom PAST MEDICAL HISTORY: PAST MEDICAL HISTORY: Type 2 diabetes Hypertension Dyslipidemia Chronic renal insufficiency Chronic obstructive pulmonary disease Congestive heart failure Atrial fibrillation Arthritis History of clear cell carcinoma of kidney BPH Myelodysplastic syndrome/anemia PAST SURGICAL HISTORY: Hip replacement 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 SOCIAL HISTORY: Quit smoking many years ago Also used to drink heavy but quit drinking many years ago 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 He is lives with his FAMILY HISTORY: Noncontributory Current Outpatient Medications: albuterol HFA (PROAIR HFA ; PROVENTIL HFA ; VENTOLIN HFA) 90 mcg/actuation inhaler, , Disp: , Rfl: ascorbic acid (VITAMIN C) 500 mg tablet, Take 1 tablet (500 mg total) by mouth 1 (one) time each day., Disp: , Rfl: Breo Ellipta 200-25 mcg/dose inhaler, Inhale 1 puff by mouth 1 (one) time each day., Disp: , Rfl: cyanocobalamin (VITAMIN B-12) 1,000 mcg tablet, Take 1 tablet (1,000 mcg total) by mouth 1 (one) time each day., Disp: , Rfl: digoxin (LANOXIN) 125 mcg (0.125 mg) tablet, Take 1 tablet (125 mcg total) by mouth daily., Disp: ,Rfl: ezetimibe (ZETIA) 10 mg tablet, Take 1 tablet (10 mg total) by mouth 1 (one) time each day., Disp: , Rfl: ferrous sulfate 325 mg (65 mg elemental iron) tablet, Take 1 tablet (325 mg total) by mouth every morning with breakfast., Disp: , Rfl: Incruse Ellipta 62.5 mcg/actuation inhalation, Inhale 1 puff by mouth 1 (one) time each day., Disp:, Rfl: metFORMIN (GLUCOPHAGE) 500 mg tablet, Take 1 tablet (500 mg total) by mouth 2 (two) times a day., Disp: , Rfl: metOLazone (ZAROXOLYN) 2.5 mg tablet, Take 1 tablet (2.5 mg total) by mouth 1 (one) time each day.,Disp: , Rfl: omeprazole (PriLOSEC) [address] capsule, Take 1 capsule (40 mg total) by mouth 1 (one) time each day., Disp: , Rfl: pravastatin (PRAVACHOL) 80 mg tablet, Take 1 tablet (80 mg total) by mouth daily., Disp: , Rfl: torsemide (DEMADEX) 20 mg tablet, Take 2 tablets (40 mg total) by mouth 1 (one) time each day., Disp: , Rfl: No Known Allergies PHYSICAL EXAM: Visit Vitals BP 112/53 (BP Location: Left arm, Patient Position: Sitting, BP Cuff Size: Adult) Pulse 91 Temp 36.6 ??C (97.8 ??F) (Temporal) Wt 78.9 kg (174 lb) SpO2 100% Comment: 2L nasal cannula BMI 26.46 kg/m?? Smoking Status Former BSA 1.93 m?? ECOG 1 APPEARANCE: Alert and oriented in no acute distress though looks frail EYES: nonicteric sclera very pale conjunctiva ORAL CAVITY: No mucositis or thrush NECK: Neck supple, no significant adenopathy, HEART: S1-S2 irregularly irregular LUNG: clear to auscultation bilaterally, except decreased breath sound the bases LYMPH NODES: No palpable superficial adenopathy ABDOMEN: soft, nontender and no organomegaly appreciated EXTREMITIES: Trace edema of lower extremities LABS: WBC 5.9, hemoglobin 4.6 g, hematocrit 17.2, MCV 103 and platelet count 421 IMPRESSION: 1. Myelodysplastic syndrome (CMS/HCC) 2. 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 I discussed with the patient and family about his worsening anemia, patient is currently getting RBC transfusion almost every other week, I told patient since he had significant renal insufficiency Iwill try Procrit injection as well as I would like him to see Dr. Singh (in myeloid disease Department of [facility] [place]) for second opinion or recommendation etc. I will also do some iron studies because of occult blood loss, he may get benefit from iron infusion if there is any significant iron deficiency PLAN: Orders Placed This Encounter Procedures Iron with TIBC and ferritin Reticulocyte count Erythropoietin Patient will get RBC transfusion today I will check iron studies, if deficient, he will get iron infusion next week I will start patient on erythropoietin injection I will arrange referral to Dr. Singh regarding his MDS Johny Bennett MD documented in this encounter Plan of Treatment Upcoming Encounters Date Type Department Care Team (Late st Contact Info) Description 07/04/2024 11:00 AM EST Appointment [facility] [address] [place] [phone] 07/15/2024 11:45 AM EST [facility] 175 [facility] [address] [place] [phone] Jessica Neal MD [address] [address] 07/28/2024 10:15 AM EST Office Visit [facility] Hematology Oncology [address] [place] [phone] Johny Bennett MD [address] [place] [address] Scheduled Orders Name Type Priority Associated Diagnoses Orde r Schedule Iron with TIBC and ferritin Lab Routine Myelodysplastic syndrome (CMS/HCC) Chronic renal insufficiency, stage 4 (severe) (CMS/HCC) 1 Occurrences starting 06/16/2024 until 06/16/2025 documented as of this encounter Results * (ABNORMAL) Erythropoietin (06/16/2024 4:31 PM EST) Erythropoietin 586.4(H) 2.6 - 18.5 mIU/mL 06/20/2024 2:17 PM EST [facility] Comment: Test performed at [facility], [address] , [place], [place] [address] ? [phone] Brenda Murray MD, PhD - Fountain Attendant Blood Venous blood specimen / Unknown Venipuncture / Unknown 06/16/2024 4:31 PM EST 06/16/2024 4:39 PM EST Johny Bennett MD LAB BLOOD ORDERABLES [facility] [address] [place] [address] documented in this encounter Visit Diagnoses Diagnosis Myelodysplastic syndrome (CMS/HCC)- Primary Myelodysplastic syndrome, unspecified Chronic renal insufficiency, stage 4 (severe) (CMS/HCC) documented in this encounter Orders Lab Orders Without Results Count Last Ordered D ate First Ordered Date RETICULOCYTE COUNT 1 06/16/2024 documented in this encounter Care Teams Rejected Items Clerk Relationship Specialty Start Date End Date Grayson Berrios DO [address] [place] [phone] PCP - General 08/22/15 documented as of this encounter
--- OUTSIDE RECORDS SUMMARY | 2024-06-28 11:04 | XMS_ITS | Encounter Summary ---
Author Organization [facility] Address [address] [place] [address] Care Team Providers Care Visual Basic .Net Developer Name Role Phone Grayson Berrios DO Primary Care Provider [phone] Reason for Visit * Episode Based Medications (Routine) - Authorized Specialty Diagnoses / Procedures Referred By Contac t Referred To Contact Diagnoses Chronic renal failure, stage 3 (moderate), unspecified whether stage 3a or 3b CKD (CMS/HCC) Anemia, unspecified type Johny Bennett MD [address] [place] [address] [facility] [address] [place] [phone] Referral ID Status Reason Start Date Expiration Date V isits Requested Visits Authorized [id number] Authorized 06/16/2024 06/16/2025 1 52 Encounter Details Date Type Department Care Team (Latest Contact Info) Description 06/17/2024 12:56 PM EST - 06/17/2024 11:59 PM EST Hospital Encounter [facility] Infusion [facility] [address] [place] [phone] Johny Bennett MD [address] [place] [address] Chronic renal failure, stage 3 (moderate), unspecified whether stage 3a or 3b CKD (CMS/HCC) (Primary Dx); Anemia, unspecified type Discharge Disposition: Home or Self Care Social [...] Sign Reading Time Taken Comments Blood Pressure 115/54 06/17/2024 1:03 PM EST Pulse 87 06/17/2024 1:03 PM EST Temperature 36.9 ??C (98.5 ??F) 06/17/2024 1:03 PM ES T Respiratory Rate - - Oxygen Saturation 99% 06/17/2024 1:03 PM EST Inhaled Oxygen Concentration - - [...] documented in this encounter Progress Notes * Marlee Fraser RN - 06/17/2024 1:00 PM EST Pt arrives today accompanied by for Procrit injection. Pt reports feeling much better after blood transfusion yesterday. Medications, allergies and assessment reviewed. Authorization received from Gladis horton to proceed. Medication released to pharmacy. Procrit injection given RIGHT arm SQ. Pt t olerated well. Appointment made for next injection next week. Stable at discharge. documented in this encounter Plan of Treatment Upcoming Encounters Date Type Department Care Team (Late st Contact Info) Description 07/04/2024 11:00 AM EST Appointment [facility] 271 [facility] 2nd [place] [phone] 07/15/2024 11:45 AM EST [facility] [address] [facility] [address] [place] [phone] Jessica Neal MD 175 [facility] [address] [place] [address] 07/28/2024 10:15 AM EST Office Visit [facility] Hematology Oncology [address] [place] [phone] Johny Bennett MD [address] [place] [address] documented as of this encounter Visit Diagnoses Diagnosis Chronic renal failure, stage 3 (moderate), unspecified whether stage 3a or 3b CKD (CMS/HCC)- Primary Anemia, unspecified type documented in this encounter Administered Medications Inactive Administered Medications - up to 3 most recent administrations Medication Order MAR Action Action Date Dose Rate Site epoetin donna-epbx (RETACRIT) injection 20,000 Units 20,000 Units, subcutaneous, Once, On Thu06/17/24 at 1330, For 1 dose Given 06/17/2024 1:28 PM EST 20,000 Units Right Upper Arm (Back) documented in this encounter Orders Medications Ordered That Bryon ht Not Have Been Administered Count Last Ordered Date First Ordered Date epoetin donna-epbx (RETACRIT) injection 20,000 Units 1 06/17/2024 documented in this encounter Care Teams Visual Basic .Net Developer Relationship Specialty Start Date End Date Grayson Berrios DO [address] [place] [phone] PCP - General 08/22/15 documented as of this encounter
--- OUTSIDE RECORDS SUMMARY | 2024-06-28 11:04 | XMS_ITS | Encounter Summary ---
Author Organization [facility] Address [address] [place] [address] Care Team Providers Care Carry All Driver Name Role Phone Grayson Berrios DO Primary Care Provider [phone] Encounter Details Date Type Department Care Team (Latest Contact Info) Description 03/09/2024 10:30 AM EDT Hospital Encounter TH HISTORIC ENCOUNTERS EASTERN CONVERSION ONLY Chronic kidney disease, stage 3a (CMS/HCC) Social History Tobacco Use Types Packs/Day [...] 2:24 PM EDT documented in this encounter Progress Notes * Historical, Notes [...] Description 07/04/2024 11:[address] [facility] [address] [place] [phone] 07/15/2024 11:45 AM EST Office Visit Pulmonol - [address] [phone] Jessica Neal MD [address] [address] 07/28/2024 10:15 AM EST Office Visit [facility] Hematology Oncology [address] [place] [phone] Johny Bennett MD [address] [place] [address] documented as of this encounter Visit Diagnoses Diagnosis Chronic kidney disease, stage 3a (CMS/HCC) documented in this encounter Care Teams Carry All Driver Relationship Specialty Start Date End Date Grayson Berrios DO [address] [place] [phone] PCP - General 08/22/15 documented as of this encounter
--- OUTSIDE RECORDS SUMMARY | 2024-06-28 11:04 | XMS_ITS | Encounter Summary ---
Author Organization [facility] Address [address] [place] [address] Care Team Providers Care Fiberglass Machine Operator Name Role Phone Grayson Berrios DO Primary Care Provider Encounter Details Date Type Department Care Team (Late st Contact Info) Description 04/11/[address] [facility] - Main Lab [address] [place] [phone] Meghana Hayden PA [address] [place] [phone] Frequency of micturition; Anemia, unspecified Social History Tobacco Use Types Packs/Day Years [...] Info) Description 07/04/2024 11:00 AM EST Appointment [facility] 271 [facility] 2nd [place] [phone] 07/15/2024 11:45 AM EST Office Visit Pul[facility]olgy - [place] 175 [facility] [address] [place] [phone] Jessica Neal MD 175 [facility] [address] [place] [address] 07/28/2024 10:15 AM EST Office Visit [facility] Hematology Oncology [address] [place] [phone] Johny Bennett MD [address] [place] [address] documented as of this encounter Procedures Procedure Name Priority Date/Time Associated Diagnosis Comments NON-GYNECOLOGIC CYTOLOGY 04/08/2024 12:00 AM EST Frequency of micturition Anemia, unspecified documented in this encounter Results * Non-gynecologic cytology (04/08/2024 12:00 AM EST) Final Diagnosis Urine: Negative for high grade urothelial carcinoma. 04/13/2024 4:06 PM [facility] Specimen A Adequacy Satisfactory for evaluation 04/13/2024 4:06 PM [facility] Gross Description A. Urine, Clean Catch, : Rec'd 20 cc of clear yellow fluid. 1 ThinPrep preparation. 04/13/2024 4:06 PM [facility] Disclaimer Unless otherwise specified, all tissue is 10% NB formalin fixed and paraffin embedded. Technical cytopathology services provided by [facility], at [address] [place] [address] (CLIA # [id number]/Sonia Singleton MD, Certified Income Tax Preparer.) 04/13/2024 4:06 PM [facility] Urine Urine specimen obtained by clean catch procedure / Unknown 04/08/2024 04/11/2024 10:49 AM EST Meghana [facility] CYTOLOGY ORDERAB [facility] ([facility]) [facility] [address] [place] [address], documented in this encounter Visit Diagnoses Diagnosis Frequency of micturition Urinary frequency Anemia, unspecified documented in this encounter Care Teams Fiberglass Machine Operator Relationship Specialty Start Date End Date Grayson Berrios DO [address] [place] [phone] PCP - General 08/22/15 documented as of this encounter
--- OUTSIDE RECORDS SUMMARY | 2024-06-28 11:04 | XMS_ITS | Encounter Summary ---
Author Organization [facility] Address [address] [place] [address] Care Team Providers Care Baker Biscuit Name Role Phone Grayson Berrios DO Primary Care Provider Encounter Details Date Type Department Care Team (Late st Contact Info) Description 04/04/2024 Lab Requisition [facility] - Main Lab [address] [place] [phone] Johny Bennett MD [address] [place] [address] Chronic kidney disease, unspecified; Monoclonal gammopathy; Nutritional anemia, unspecified Social History Tobacco Use Types Packs/Day [...] Info) Description 07/04/2024 11:00 AM EST Appointment [facility] Infusion Center [address] [facility] 2nd [place] [phone] 07/15/2024 11:45 AM EST Office Visit Pulmonolgy - [place] [address] [phone] Jessica Neal MD [address] [address] 07/28/2024 10:15 AM EST Office Visit [facility] Hematology Oncology [address] [place] [phone] Johny Bennett MD [address] [place] [address] documented as of this encounter Procedures Procedure Name Priority Date/Time Associated Diagnosis Comments COMPLETE BLOOD COUNT Routine 04/04/2024 8:00 AM EST Chronic kidney disease, unspecified Monoclonal gammopathy Nutritional anemia, unspecified TYPE AND SCREEN Routine 04/04/2024 8:00 AM EST Chronic kidney disease, unspecified Monoclonal gammopathy Nutritional anemia, unspecified documented in this encounter Results * Type and screen (04/04/2024 8:00 AM EST) ABO Group O 04/04/2024 12:50 PM EST [facility] Rh Type Positive 04/04/2024 12:50 PM EST [facility] Antibody Screen Negative 04/04/2024 12:50 PM EST [facility] Blood Venous blood specimen / Unknown 04/04/2024 8:00 AM EST 04/04/2024 12:01 PM EST Johny Bennett MD LAB BLOOD BANK TEST ORDERABLES [facility] [address] [place] [address], * (ABNORMAL) Complete blood count (04/04/2024 8:00 AM EST) [facility] WBC 5.1 4.8 - 10.8 K/mcL LAB HEMETOLOGY METHOD 04/04/2024 10:13 AM [facility] RBC 2.50(L) 4.50 - 5.50 M/mcL LAB HEMETOLOGY METHOD 04/04/2024 10:13 AM [facility] Hemoglobin 6.6(L) 13.5 - 17.5 g/dL LAB HEMETOLOGY METHOD 04/04/2024 10:13 AM [facility] Hematocrit 23.2(L) 42.0 - 54.0 % LAB HEMETOLOGY METHOD 04/04/2024 10:13 AM [facility] MCV 91.3 79.0 - 98.0 FL LAB HEMETOLOGY METHOD 04/04/2024 10:13 AM [facility] MCH 26.0(L) 27.0 - 32.0 pcg LAB HEMETOLOGY METHOD 04/04/2024 10:13 AM [facility] MCHC 28.4(L) 32.0 - 37.0 g/dL LAB HEMETOLOGY METHOD 04/04/2024 10:13 AM [facility] RDW 17.5(H) 11.0 - 15.0 % LAB HEMETOLOGY METHOD 04/04/2024 10:13 AM [facility] Platelets 273 130 - 400 K/mcL LAB HEMETOLOGY METHOD 04/04/2024 10:13 AM [facility] MPV 10.8 7.0 - 11.0 FL LAB HEMETOLOGY METHOD 04/04/2024 10:13 AM [facility] NRBC 0.0 <1.0 % LAB HEMETOLOGY METHOD 04/04/2024 10:13 AM [facility] NRBC Absolute 0.00 <0.10 K/mcL LAB HEMETOLOGY METHOD 04/04/2024 10:13 AM EST [facility] Blood Venous blood specimen / Unknown 04/04/2024 8:00 AM EST 04/04/2024 9:58 AM EST Johny Bennett MD LAB BLOOD ORDERABLES [facility] ([facility]) [facility] [address] [place] [address], documented in this encounter Visit Diagnoses Diagnosis Chronic kidney disease, unspecified Monoclonal gammopathy Monoclonal paraproteinemia Nutritional anemia, unspecified documented in this encounter Care Teams Baker Biscuit Relationship Specialty Start Date End Date Grayson Berrios DO [address] [place] [phone] PCP - General 08/22/15 documented as of this encounter
--- OUTSIDE RECORDS SUMMARY | 2024-06-28 11:04 | XMS_ITS | Encounter Summary ---
Author Organization [facility] Address [address] [place] [address] Care Team Providers Care Passenger Car Conductor Name Role Phone Grayson Berrios DO Primary Care Provider [phone] Reason for Visit * Episode Based Medications (Routine) - Pending Review Specialty Diagnoses / Procedures Referred By Abiola t Referred To Contact Diagnoses Myelodysplastic syndrome (CMS/HCC) Johny Bennett MD [address] [place] [address] [facility] Infusion Center [address] [place] [phone] Referral ID Status Reason Start Date Expiration Date V isits Requested Visits Authorized [id number] Pending Review 04/06/2024 04/06/2025 1 1 Encounter Details Date Type Department Care Team (Latest Contact Info) Description 06/27/2024 9:27 AM EST Hospital Encounter [facility] Infusion Center [address] [place] [phone] Johny Bennett MD [address] [place] [address] Myelodysplastic syndrome (CMS/HCC) (Primary Dx) Social History Tobacco Use Types [...] Sign Reading Time Taken Comments Blood Pressure 115/56 06/27/2024 2:45 PM EST Pulse 72 06/27/2024 2:45 PM EST Temperature 36.6 ??C (97.8 ??F) 06/27/2024 2:45 PM ES T Respiratory Rate 18 06/27/2024 2:45 PM EST Oxygen Saturation - - Inhaled Oxygen Concentration - - Weight - - Height - - Body Mass Index - - documented in this encounter Progress Notes * Marlee Fraser RN - 06/27/2024 9:30 AM EST Pt arrives today via wheelchair accompanied by for transfusion of 2 units PRBC. Pt reports feeling tired. Medications, allergies, and assessment reviewed. PIV inserted LEFT fa. Pt tolerated well. 2 units ready and released to blood bank . 1005 1st step of blood infusing. Pt tolerating well. Pt resting in chair. Call finnegan in reach. 1225 first unit complete. Pt tolerated well. 2nd unit up and running. Pt up to bathroom multiple times with assist of staff members. 1500 Transfusion complete. Pt tolerated well. PIV removed without incident. 1535 pt left unit stable via wheelchair. Daughter in law Yuko waiting for pt downstairs. Pt will return Thursday for lab draw and Retacrit injection. Stable at discharge. Per daughter in law Dr Bennett got back to her in re iron studies and no new treatment just to continue po iron. documented in this encounter Plan of Treatment Upcoming Encounters Date Type Department Care Team (Late st Contact Info) Description 07/04/2024 11:00 AM EST Appointment [facility] Infusion Center [address] [phone] 07/15/2024 11:45 AM EST Office Visit Pulmonolgy - [place] [address] [phone] Jessica Neal MD [address] [address] 07/28/2024 10:15 AM EST Office Visit [facility] Hematology Oncology [address] [place] [phone] Johny Bennett MD [address] [place] [address] documented as of this encounter Results * Transfuse RBC (06/27/2024 2:53 PM EST) Johny Bennett MD BLOOD TRANSFUSION OR DERABLES * Transfuse RBC: 2 Units (06/27/2024 2:53 PM EST) Johny Bennett MD BLOOD TRANSFUSION OR DERABLES * Transfuse RBC (06/27/2024 12:10 PM EST) Johny Bennett MD BLOOD TRANSFUSION OR DERABLES documented in this encounter Visit Diagnoses Diagnosis Myelodysplastic syndrome (CMS/HCC)- Primary Myelodysplastic syndrome, unspecified documented in this encounter Care Teams Passenger Car Conductor Relationship Specialty Start Date End Date Grayson Berrios DO [address] [place] [phone] PCP - General 08/22/15 documented as of this encounter
--- OUTSIDE RECORDS SUMMARY | 2024-06-28 11:04 | XMS_ITS | Clinical Summary ---
Author Organization [facility] Address [address] [facility] [address] [place] [address] Phone Care Team Providers Care Oil Developer Name Role Phone Grayson Berrios DO Primary Care Provider Allergies No known active allergies Medications albuterol HFA (PROVENTIL HFA;VENTOLIN HFA) 108 (90 Base) MCG/ACT inhaler Active ascorbic acid (VITAMIN C) 500 MG tablet Take 1 tablet by mouth 1 (one) time each day Active budesonide-form oterol (SYMBICORT) 160-4.5 MCG/ACT inhaler 2 puffs by Other route 2 (two) times a day Active digoxin (LANOXIN) 125 MCG tablet Take 1 tablet by mouth 1 (one) time each day Active dilTIAZem (TIAZAC) 180 MG 24 hr capsule Take 1 capsule by mouth 1 (one) time each day Active ezetimibe (ZETIA) 10 MG tablet Take 1 tablet by mouth 1 (one) time each day Active ferrous sulfate 325 (65 Fe) MG tablet Take 1 tablet by mouth 1 (one) time each day Active glipiZIDE (GLUCOTROL) 10 MG tablet Take 1 tablet by mouth 1 (one) time each day Active metFORMIN (GLUCOPHAGE) 500 MG tablet Take 1 tablet by mouth 2 (two) times a day Active pravastatin (PRAVACHOL) 80 MG tablet Take 1 tablet by mouth 1 (one) time each day Active tiotropium (Spiriva HandiHaler) 18 MCG per inhalation capsule 1 capsule by Other route 1 (one) time each day Active warfarin (COUMADIN) 5 MG tablet Take 1 tablet by mouth 1 (one) time each day Active lisinopril 2.5 MG tablet Take 1 tablet by mouth 1 (one) time each day 1 Active torsemide (DEMADEX) 20 MG tablet Take 2 tablets by mouth once daily 60 tablet 3 Active Additional Information Patient taking differently: 2 x a week, Reported on 02/17/2023 doxycycline (VIBRAMYCIN) 100 MG capsule TAKE 1 CAPSULE BY MOUTH TWICE DAILY . 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 Stage 3a chronic kidney disease 11/26/2020 Resolved Problems Problem Noted Date Diagnosed Date Resolved Date Depressive disorder 01/01/2007 04/11/20 22 Congestive heart failure 08/10/200604/2022 Overview (04/11/2022): EF 25-30% echo 07/08, cath negative IMO update Atrial fibrillation 07/18/2005 04/11/20 22 Malaise and fatigue 07/18/2005 04/11/20 22 Obesity 07/18/2005 04/11/2022 Alcohol abuse 05/05/2005 04/11/2022 Family History Medical History Relation Comments Cancer Father Gout Father Hypertension Mother Relation Status Comments Father Mother Social History Tobacco Use Types Packs/Day Years Used Date Smoking Tobacco: Former Cigarettes Q uit: 06/01/2009 Smokeless Tobacco: Never Tobacco Cessation:Counseling Given: Not Answered Comments:Smoking History Info:Every day Sex and Gender Information Value Date Recorded Sex Assigned at Not on file Legal Sex Male 5:08 PM EST Gender Identity Not on file Sexual Orientation Not on file Last Filed Vital Signs Vital Sign Reading Time Taken Comments Blood Pressure 106/62 02/17/2023 3:33 PM EDT Pulse 67 02/17/2023 3:33 PM EDT Temperature - - Respiratory Rate - - Oxygen Saturation 95% 02/17/2023 3:33 PM EDT Inhaled Oxygen Concentration - - Weight 91.6 kg (202 lb) 02/17/2023 3:33 PM EDT Height 172.7 cm (5' 8 ) 04/15/2022 1:29 PM EST Body Mass Index 30.71 04/15/2022 1:29 PM EST Plan of Treatment Health Maintenance Due Date Last Done Comments Colorectal Cancer Screening: Annual FOBT 1998 Colorectal Cancer Screening: Colonoscopy 1998 Colorectal Cancer Screening: Sigmoidoscopy 1998 Pneumococcal Vaccine: 65+ Years (3 of 3 - PPSV23 or PCV20) 03/13/2018 02/16/2015, 03/13/2013 Influenza Vaccine (#1) 2024 Hepatitis B Vaccine Aged Out No longe r eligible based on patient's age to complete this topic Insurance Care Teams Oil Developer Relationship Specialty Start Date End Date Grayson Berrios DO [address] [place] [address] PCP - General 06/11/20
--- OUTSIDE RECORDS SUMMARY | 2024-06-28 11:05 | XMS_ITS | Encounter Summary ---
Author Organization [facility] Address [address] [place] [address] Care Team Providers Care Sports Nutritionist Name Role Phone EldaGrayson jones Primary Care Provider [phone] Encounter Details Date Type Department Care Team (Late st Contact Info) Description 06/03/2024 Telephone [facility] Infusion Center [address] [place] [phone] Patricia Ga, RN Social History Tobacco Use Types Packs/Day Years [...] as of this encounter Progress Notes * Patricia Ga RN - 06/03/2024 2:20 PM EST This RN called sonShlomo, back as pt's daughter called inquiring about the need for a blood transfusion. Labs were reviewed with construction carpenter provider, Dr. Zamudio, who requested pt receive 2 units PRBCs on Thursday. Appt made for Thursday at 8:30 to have a stat type and screen to transfuse 2 units PRBCs per hospitalprotocol. Encouraged son to continue monitoring dad and if he becomes symptomatic in any way or starts bleeding, he is to take him to the ER over the weekend. Son verbalized understanding and agrees to plan. documented in this encounter Plan of Treatment Upcoming Encounters Date Type Department Care Team (Late st Contact Info) Description 07/04/2024 11:00 AM EST Appointment [facility] [address] [place] [phone] 07/15/2024 11:45 AM EST Office Visit [address] [phone] Jessica Neal MD [address] [address] 07/28/2024 10:15 AM EST Office Visit [facility] Hematology Oncology [address] [place] [phone] Johny Bennett MD [address] [place] [address] documented as of this encounter Visit Diagnoses Not on filedocumented in this encounter Care Teams Sports Nutritionist Relationship Specialty Start Date End Date Grayson Berrios DO [address] [place] [phone] PCP - General 08/22/15 documented as of this encounter
--- OUTSIDE RECORDS SUMMARY | 2024-06-28 11:05 | XMS_ITS ---
Author Organization [facility] Address [address] [place] [address] Phone Care Team Providers Care Shingle Sawyer Name Role Phone Yash Grayson Primary Care Provider [phone] Active Problems Problem Noted Date Diagnosed Date CRF (chronic renal failure) 06/16/2024 Iron deficiency 05/27/2024 Anemia, unspecified type 05/24/2024 Myelodysplastic syndrome 04/06/2024 Current Oncology Plans OUTPATIENT TRANSFUSION (PRN)* Plan Start Date:04/06/2024 Plan Provider:Johny Bennett MD Linked Problems Myelodysplastic syndrome (CM S/HCC) Treatment Medications No medications scheduled. Other Current Plans EPOETIN [place] - ORIGINATOR OR BIOSIMILAR - ONCOLOGY ( SUBCUTANEOUS INJECTION )* Plan Start Date:06/17/2024 Plan Provider:Johny Bennett MD Linked Problems Chronic renal failure, stage 3 (moderate), unspecified whether stage 3a or 3b CKD (CMS/HCC)Anemia, unspecified type Treatment Medications No medications scheduled. Past Plans No past plan information found. Radiation Treatments * No radiation treatments are documented for this patient in [facility]. Treatments may have been administered in another system.
--- OUTSIDE RECORDS SUMMARY | 2024-06-28 11:05 | XMS_ITS | Encounter Summary ---
Author Organization [facility] Address [address] [place] [address] Care Team Providers Care Entry Level Account Manager Name Role Phone Grayson Berrios DO Primary Care Provider [phone] Reason for Visit * Episode Based Medications (Routine) - Pending Review Specialty Diagnoses / Procedures Referred By Contac t Referred To Contact Diagnoses Myelodysplastic syndrome (CMS/HCC) Johny Bennett MD [address] [place] [phone] [facility] [address] [place] [phone] Referral ID Status Reason Start Date Expiration Date V isits Requested Visits Authorized [id number] Pending Review 04/06/2024 04/06/2025 1 1 Encounter Details Date Type Department Care Team (Latest Contact Info) Description 06/06/2024 8:29 AM EST - 06/06/2024 11:59 PM EST Hospital Encounter [facility] [address] [place] [phone] Myelodysplastic syndrome (CMS/HCC) (Primary Dx) Discharge Disposition: Home or Self Care Social [...] Sign Reading Time Taken Comments Blood Pressure 112/60 06/06/2024 3:30 PM EST Pulse 104 06/06/2024 3:30 PM EST Temperature 36.9 ??C (98.5 ??F) 06/06/2024 3:30 PM ES T Respiratory Rate 20 06/06/2024 3:30 PM EST Oxygen Saturation 100% 06/06/2024 8:37 AM EST Inhaled Oxygen Concentration - - [...] Progress Notes * Clari Rico MA - 06/06/2024 8:30 AM ESTEncounter addended by: Clari Rico MA on: 06/08/2024 9:54 AM Actions taken: Charge Capture section accepted * Marlee Fraser RN - 06/06/2024 8:30 AM EST Pt arrives today accompanied by for PRBC transfusion. Pt comes up after having labs drawn. Awaiting results. Medications, allergies, and assessment reviewed. PIV inserted without difficulty. Labs resulted H/H 5.1/17.9 - pt to receive 2 units as previously ordered. PRBC released to Bloodbank. Pt received 2 units PRBC over a few hours each. Pt tolerated well. Pt ambulated to the bathroom multiple times. Pt tolerated well. Pt left unit accompanied by daughter in law. Stable at discharge. documented in this encounter Plan of Treatment Upcoming Encounters Date Type Department Care Team (Late st Contact Info) Description 07/04/2024 11:00 AM EST Appointment [facility] [address] [place] [phone] 07/15/2024 11:45 AM EST [facility] [address] [phone] Jessica Neal MD [address] [address] 07/28/2024 10:15 AM EST Office Visit [facility] Hematology Oncology [address] [place] [phone] Johny Bennett MD [address] [place] [address] documented as of this encounter Procedures Procedure Name Priority Date/Time Associated Diagnosis Comments PREPARE RBC Routine 06/06/2024 9:56 AM EST Myelodysplastic syndrome (CMS/HCC) documented in this encounter Results * Transfuse RBC (06/06/2024 3:50 PM EST) Johny Bennett MD BLOOD TRANSFUSION OR DERABLES * Transfuse RBC (06/06/2024 12:43 PM EST) Johny Bennett MD BLOOD TRANSFUSION OR DERABLES * Prepare RBC: 2 Units (06/06/2024 9:56 AM EST) Product Code [id number] 06/06/2024 10:30 AM [facility] Unit Number [id number] 06/06/19 10:30 AM [facility] Crossmatch Compatible 06/06/2024 10:04 AM [facility] Dispense Status Transfused 06/06/2024 10:30 AM [facility] Unit ABO Rh OPOS 06/06/2024 10:30 AM [facility] Unit Expiration Date Time [id number] 06/06/2024 10:30 AM [facility] Unit Blood Type 5100 06/06/2024 10:30 AM [facility] Product Code [id number] 06/06/2024 12:51 PM [facility] Unit Number [id number] 06/06/19 12:51 PM [facility] Crossmatch Compatible 06/06/2024 10:04 AM [facility] Dispense Status Transfused 06/06/2024 12:51 PM [facility] Unit ABO Rh OPOS 06/06/2024 12:51 PM [facility] Unit Expiration Date Time [id number] 06/06/2024 12:51 PM [facility] Unit Blood Type 5100 06/06/2024 12:51 PM [facility] Blood Venous blood specimen / Unknown 06/06/2024 9:56 AM EST 06/06/2024 8:50 AM EST Johny Bennett MD BLOOD BANK PRODUCT O RDERABLES [facility] [address] [place] [address], documented in this encounter Visit Diagnoses Diagnosis Myelodysplastic syndrome (CMS/HCC)- Primary Myelodysplastic syndrome, unspecified documented in this encounter Care Teams Entry Level Account Manager Relationship Specialty Start Date End Date Grayson Berrios DO [address] [place] [phone] PCP - General 08/22/15 documented as of this encounter
--- OUTSIDE RECORDS SUMMARY | 2024-06-28 11:05 | XMS_ITS | Encounter Summary ---
Author Organization [facility] Address [address] [place] [address] Care Team Providers Care Compensation Vice President Name Role Phone Grayson Berrios DO Primary Care Provider [phone] Encounter Details Date Type Department Care Team (Late Contact Info) Description 06/03/2024 Telephone [facility] Hematology Oncology [address] [place] [phone] Daniela Jacob MA Social History Tobacco Use Types Packs/Day Years [...] Info) Description 07/04/2024 11:00 AM EST Appointment [facility] [address] [phone] 07/15/2024 11:45 AM EST Office Visit Pulmonolgy - [place] [address] [phone] Jessica Neal MD [address] [address] 07/28/2024 10:15 AM EST Office Visit [facility] Hematology Oncology [address] [place] [phone] Johny Bennett MD [address] [place] [address] documented as of this encounter Visit Diagnoses Not on filedocumented in this encounter Care Teams Compensation Vice President Relationship Specialty Start Date End Date Grayson Berrios DO [address] [place] [phone] PCP - General 08/22/15 documented as of this encounter
--- OUTSIDE RECORDS SUMMARY | 2024-06-28 11:05 | XMS_ITS | Encounter Summary ---
Author Organization [facility] Address [address] [place] [address] Care Team Providers Care Railcar Switchman Name Role Phone Grayson Berrios DO Primary Care Provider [phone] Encounter Details Date Type Department Care Team (Late st Contact Info) Description 05/31/2024 Telephone [facility] Hematology Oncology [address] [place] [phone] Johny Bennett MD [address] [place] [address] Social History Tobacco Use Types Packs/Day Years [...] as of this encounter Progress Notes * Andres Goss MA - 05/31/2024 2:23 PM EST Halina returned call to Stephie CHUNG nurse, explained that this situation must be brought up to PCP, given Kiran is not treated for DVT here, and Sabrina is on vacation. * Halina Mora RN - 05/31/2024 2:22 PM EST Spoke with Stephie, asked her to call the patients PCP regarding this concern, she reported the office is closed today. Informed her Dr. Bennett is out of the office until the . She will continue to monitor the area and speak with his PCP on . * Lyric Goodwin - 05/31/2024 1:56 PM EST Stephie nurse from [facility] called to report L arm swelling, not warm, a bit pink, she had recommended er to check for dvt but patient refused wondering if we can order u/s and call him at [phone] documented in this encounter Plan of Treatment Upcoming Encounters Date Type Department Care Team (Late st Contact Info) Description 07/04/2024 11:00 AM EST Appointment [facility] [address] [place] [address] [address] [place] [phone] 07/15/2024 11:45 AM EST Office Visit [facility] [place] [address] [phone] Jessica Neal MD [address] [address] 07/28/2024 10:15 AM EST Office Visit [facility] Hematology Oncology [address] [place] [phone] Johny Bennett MD [address] [place] [address] documented as of this encounter Visit Diagnoses Not on filedocumented in this encounter Care Teams Railcar Switchman Relationship Specialty Start Date End Date Grayson Berrios DO [address] [place] [phone] PCP - General 08/22/15 documented as of this encounter
--- OUTSIDE RECORDS SUMMARY | 2024-06-28 11:05 | XMS_ITS | Clinical Summary ---
Author Organization [facility] Address [address] [place] [phone] Phone Care Team Providers Care Pediatrics Teacher Name Role Phone Grayson Berrios DO Primary Care Provider [phone] Allergies No known active allergies Medications Medication Sig Dispensed Refills Start Date End Date Status albuterol HFA (PROAIR HFA ; PROVENTIL HFA ; VENTOLIN HFA) 90 mcg/actuation inhaler Act farrukh ascorbic acid (VITAMIN C) 500 mg tablet Take 1 tablet (500 mg total) by mouth 1 (one) time each day. Active digoxin (LANOXIN) 125 mcg (0.125 mg) tablet Take 1 tablet (125 mcg total) by mouth daily. 12/08/2022 Active ezetimibe (ZETIA) 10 mg tablet Take 1 tablet (10 mg total) by mouth 1 (one) time each day. 11/03/2022 Active ferrous sulfate 325 mg (65 mg elemental iron) tablet Take 1 tablet (325 mg total) by mouth every morning with breakfast. Active metFORMIN (GLUCOPHAGE) 500 mg tablet Take 1 tablet (500 mg total) by mouth 2 (two) times a day. Active pravastatin (PRAVACHOL) 80 mg tablet Take 1 tablet (80 mg total) by mouth daily. 12/27/2022 Active torsemide (DEMADEX) 20 mg tablet Take 2 tablets (40 mg total) by mouth 1 (one) time each day. 11/24/2022 Active cyanocobalamin (VITAMIN B-12) 1,000 mcg tablet Take 1 tablet (1,000 mcg total) by mouth 1 (one) time each day. Active Incruse Ellipta 62.5 mcg/actuation inhalation Inhale 1 puff by mouth 1 (one) time each day. 03/09/2024 Active omeprazole (PriLOSEC) [address] capsule Take 1 capsule (40 mg total) by mouth 1 (one) time each day. 05/04/2024 Active metOLazone (ZAROXOLYN) 2.5 mg tablet Take 1 tablet (2.5 mg total) by mouth 1 (one) time each day. 12/01/2023 Active Breo Ellipta 200-25 mcg/dose inhaler Inhale 1 puff by mouth 1 (one) time each day. 03/28/2024 Active Active Problems Problem Noted Date Diagnosed Date CRF (chronic renal failure) 06/16/2024 Iron deficiency 05/27/2024 Anemia, unspecified type 05/24/2024 Myelodysplastic syndrome 04/06/2024 Encounters Date Type Department Care Team Description 06/27/2024 9:27 AM EST Hospital Encounter [facility] [address] [place] [phone] Johny Bennett MD Myelodysplastic syndrome (CMS/HCC) (Primary Dx) 06/27/2024 Telephone [facility] [address] [place] [phone] Johny Bennett MD 06/24/2024 12:57 PM EST - 06/24/2024 11:59 PM EST Hospital Encounter [facility] [address] [place] [phone] Johny Bennett MD Anemia, unspecified type (Primary Dx); Chronic renal failure, stage 3 (moderate), unspecified whether stage 3a or 3b CKD (CMS/HCC) Discharge Disposition: Home or Self Care 06/17/2024 12:56 PM EST - 06/17/2024 11:59 PM EST Hospital Encounter [facility] [address] [place] [phone] Johny Bennett MD Chronic renal failure, stage 3 (moderate), unspecified whether stage 3a or 3b CKD (CMS/HCC) (Primary Dx); Anemia, unspecified type Discharge Disposition: Home or Self Care 06/16/2024 10:30 AM EST - 06/16/2024 11:59 PM EST Hospital Encounter [facility] [address] [place] [phone] Johny Bennett MD Myelodysplastic syndrome (CMS/HCC) (Primary Dx); Iron deficiency; Anemia, unspecified type; Chronic renal insufficiency, stage 4 (severe) (CMS/HCC) Discharge Disposition: Home or Self Care 06/16/2024 10:15 AM EST Office Visit [facility] Hematology Oncology [address] [place] [phone] Johny Bennett MD Myelodysplastic syndrome (CMS/HCC) (Primary Dx); Chronic renal insufficiency, stage 4 (severe) (CMS/HCC) 06/15/2024 12:45 PM EST Lab Draw Station - [address] [phone] Iron deficiency anemia, unspecified (Primary Dx) 06/06/2024 8:29 AM EST - 06/06/2024 11:59 PM EST Hospital Encounter [facility] [address] [place] [phone] Myelodysplastic syndrome ([facility]/HCC) (Primary Dx) Discharge Disposition: Home or Self Care 06/03/2024 Telephone [facility] [address] [place] [phone] Patricia Ga RN 06/03/2024 Telephone [facility] [address] [place] [phone] Daniela Jacob MA 05/31/2024 Telephone [facility] [address] [place] [phone] Johny Bennett MD 05/24/2024 3:58 PM EST - 05/27/2024 3:30 PM EST Hospital Encounter [facility] [address] [place] [phone] Levy Hein MD [place], Estate, MD Anemia, unspecified type (Primary Dx); Shortness of breath Discharge Disposition: Home-Health Care [facility] 05/24/2024 11:40 AM EST Lab Draw Station - [address] [phone] Myelodysplastic syndrome (CMS/HCC) (Primary Dx) 05/24/2024 Telephone [facility] [address] [place] [phone] Bibiana Begum RN 05/04/2024 Telephone Gastroenterology - [address] [phone] Jesus Beasley MD 05/02/2024 Telephone [facility] [address] [place] [phone] Johny Bennett MD 04/22/2024 8:28 AM EST - 04/22/2024 11:59 PM EST Hospital Encounter [facility] [address] [place] [phone] Myelodysplastic syndrome (CMS/HCC) (Primary Dx) Discharge Disposition: Home or Self Care 04/20/2024 Telephone [facility] [address] [place] [phone] Nicole Jacob MA 04/12/2024 Telephone Gastroenterology - [address] [phone] Tati Munoz MA Results 04/11/2024 Lab Requisition [facility] [address] [facility] [place] [phone] Meghana Hayden PA Frequency of micturition; Anemia, unspecified 04/07/2024 8:00 AM EST - 04/07/2024 11:59 PM EST Hospital Encounter [facility] [address] [phone] Myelodysplastic syndrome (CMS/HCC) (Primary Dx) Discharge Disposition: Home or Self Care 04/04/2024 Telephone Gastroenterology - [address] [phone] Jesus Beasley MD 04/04/2024 Telephone [facility] [address] [place] [phone] Johny Bennett MD 04/04/2024 Lab Requisition [facility] [address] [facility] [email or web address] [phone] Johny Bennett MD Chronic kidney disease, unspecified; Monoclonal gammopathy; Nutritional anemia, unspecified 03/30/2024 7:39 AM EDT - 03/30/2024 11:55 PM EDT Hospital Encounter [facility] Endoscopy [address] [place] [phone] Jesus Beasley MD Discharge Disposition: Home or Self Care 03/21/2024 2:12 PM EDT - 03/31/2024 11:59 PM EDT Hospital Encounter [facility] [address] [place] [phone] Johny Bennett MD from Last 3 Months Immunizations Name Administration Dates Next Due Tolerx (ages 12 & older) ANALILIA S-CoV-2 COVID-19, mRNA, LNP-S, javier-sucrose, preservative free 01/24/2022 Pfizer SARS-CoV-2 COVID-19, mRNA, LNP-S, preservative free 03/12/2021,08/24/2020,08/03/2020 Surgical History Surgery Date Site/Laterality Comments NEPHRECTOMY Right PROCEDURE:NEPHRECTOMY Medical History Medical History Date Comments History of kidney cancer DX:Hist ory of kidney cancer CHF (congestive heart failur e) (CMS/HCC) DX:CHF (congestive heart andreea lure) (HCC) Diabetes mellitus (CMS/HCC) DX:D iabetes mellitus (HCC) COPD (chronic obstructive pu lmonary disease) ([facility]) DX:COPD (chronic obstructive pulmonary disease) ([facility]) Hypertension DX:Hypertension BPH (benign prostatic hyperplasia) DX:BPH (benign prostatic hyperplasia) Essential hypertension, benign 05/05/2005 D X:Essential hypertension, benign Alcohol abuse, unspecified 05/05/2005 DX:Al cohol abuse, unspecified Arteritis, unspecified ([facility]) DX:Arteritis, unspecified ([facility]) Congestive heart failure, unspecified 08/10/2006 DX:Congestive heart failure, unspecified; COMMENT: EF 25-30% echo 07/08 Pulmonary hypertension ([facility]) DX:Pulmonary hypertension (HCC) Family History Medical History Relation Name Comments Hypertension Mother Other: Other Mother PVD Relation Name Status Comments Mother Social History Tobacco Use Types Packs/Day [...] file Not on file Not on file Obstetrics History Last Filed Vital Signs Vital Sign Reading Time Taken Comments Blood Pressure 115/56 06/27/2024 2:45 PM EST Pulse 72 06/27/2024 2:45 PM EST Temperature 36.6 ??C (97.8 ??F) 06/27/2024 2:45 PM ES T Respiratory Rate 18 06/27/2024 2:45 PM EST Oxygen Saturation 100% 06/24/2024 1:17 PM EST Inhaled Oxygen Concentration - - Weight 78.9 kg (174 lb) 06/16/2024 10:11 AM EST Height 172.7 cm (5' 8 ) 05/24/2024 9:02 PM EST Body Mass Index 26.46 05/24/2024 9:02 PM EST Plan of Treatment Upcoming Encounters Date Type Department Care Team (Late st Contact Info) Description 07/04/2024 11:00 AM EST Appointment [facility] [address] [facility] [address] [place] [phone] 07/15/2024 11:45 AM EST Office Visit Pulmonolgy - [place] [address] [phone] Jessica Neal MD [address] [address] 07/28/2024 10:15 AM EST Office Visit [facility] [address] [place] [phone] Johny Bennett MD [address] [place] [address] Health Maintenance Due Date Last Done Comments Diabetes: Annual Foot Exam 1959 Diabetes: Annual Retina Eye Exam 1959 DTaP,Tdap,and Td Vaccines (1 - Tdap) 1968 Hepatitis A Vaccines (1 of 2 - Risk 2-dose series) 1968 Pneumococcal Vaccine: 65+ Years (3 of 3 - PPSV23 or PCV20) 03/13/2018 02/16/2015, 03/13/2013 Abdominal Aortic Aneurysm (AAA) Screen 05/15/2022 Cholesterol Screening (Lipid Panel) 05/15/2022 Colorectal Cancer Screening: Colonoscopy 05/15/2022 Depression Screening 05/15/2022 Hepatitis C Screening 05/15/2022 Medicare Annual Wellness Visit 05/15/2022 Social Influencers of Health Screening 05/15/2022 Diabetes: Annual Urine Albumin-Creatinine Ratio (uACR) 03/10/2024 Diabetes: Blood Sugar Control Test (HGBA1C) 03/10/2024 Diabetes: Annual GFR (Glomerular Filtration Rate) 05/27/2025 05/27/2024, 05/26/2024, 05/25/2024, Additional history exists Falls Risk Assessment 05/27/2025 05/27/2024 Hypertension/CHF/CAD Annual BMP Blood Test 05/27/2025 05/27/2024, 05/26/2024, 05/25/2024, Additional history exists RSV Immunization Patients 60+ Years Old Completed 05/15/2023 Zoster Vaccines Completed 08/15/2023, 05/15/2023 COVID-19 Vaccine Completed 04/08/2024, , 02/25/2023, Additional history exists Influenza Vaccine Completed 04/08/2024, , 01/24/2022, Additional history exists HIB Vaccines Aged Out No longer eligi ble based on patient's age to complete this topic HPV Vaccines Aged Out No longer eligi ble based on patient's age to complete this topic Hepatitis B Vaccines Aged Out No long er eligible based on patient's age to complete this topic IPV Vaccines Aged Out No longer eligi ble based on patient's age to complete this topic MMR Vaccines Aged Out No longer eligi ble based on patient's age to complete this topic Meningococcal ACWY Vaccine Aged Out N o longer eligible based on patient's age to complete this topic RSV Immunization Patients Under 20 months Aged Out No longer eligible based on patient's age to complete this topic Varicella Vaccines Aged Out No longer eligible based on patient's age to complete this topic Procedures Procedure Name Priority Date/Time Associated Diagnosis Comments PREPARE RBC Routine 06/27/2024 9:13 AM EST Myelodysplastic syndrome (CMS/HCC) PREPARE RBC Routine 06/24/2024 3:02 PM EST Myelodysplastic syndrome (CMS/HCC) CBC WITH AUTO DIFFERENTIAL Routine 06/24/2024 1:33 PM EST Chronic renal failure, stage 3 (moderate), unspecified whether stage 3a or 3b CKD (CMS/HCC) Anemia, unspecified type CBC AND DIFFERENTIAL Routine 06/24/2024 1:33 PM EST Chronic renal failure, stage 3 (moderate), unspecified whether stage 3a or 3b CKD (CMS/HCC) Anemia, unspecified type TYPE AND SCREEN Routine 06/24/2024 1:33 PM EST Anemia, unspecified type FERRITIN Routine 06/16/2024 4:31 PM EST Myelodysplastic syndrome (CMS/HCC) Iron deficiency Anemia, unspecified type IRON AND TIBC Routine 06/16/2024 4:31 PM EST Myelodysplastic syndrome (CMS/HCC) Iron deficiency Anemia, unspecified type ERYTHROPOIETIN Routine 06/16/2024 4:31 PM EST Myelodysplastic syndrome (CMS/HCC) Chronic renal insufficiency, stage 4 (severe) (CMS/HCC) TRANSFUSE RED BLOOD CELLS Routine 06/16/2024 2:28 PM EST Myelodysplastic syndrome (CMS/HCC) TRANSFUSE RED BLOOD CELLS Routine 06/16/2024 11:54 AM EST Myelodysplastic syndrome (CMS/HCC) PREPARE RBC Routine 06/16/2024 9:20 AM EST Myelodysplastic syndrome (CMS/HCC) RETICULOCYTE COUNT Routine 06/15/2024 12 :43 PM EST Iron deficiency anemia, unspecified CBC WITH AUTO DIFFERENTIAL Routine 06/15/2024 12:43 PM EST Iron deficiency anemia, unspecified CBC AND DIFFERENTIAL Routine 06/15/2024 12:43 PM EST Iron deficiency anemia, unspecified TYPE AND SCREEN Routine 06/15/2024 12:43 PM EST Iron deficiency anemia, unspecified ..MISCELLANEOUS REFERENCE LAB TEST 06/07/2024 ..MISCELLANEOUS REFERENCE LAB TEST 06/07/2024 ..MISCELLANEOUS REFERENCE LAB TEST 06/07/2024 ..MISCELLANEOUS REFERENCE LAB TEST 06/07/2024 ..MISCELLANEOUS REFERENCE LAB TEST 06/07/2024 PREPARE RBC Routine 06/06/2024 9:56 AM EST Myelodysplastic syndrome (CMS/HCC) TYPE AND SCREEN Routine 06/06/2024 8:22 AM EST Simple chronic anemia Chronic kidney disease, unspecified Gammopathy, monoclonal COMPLETE BLOOD COUNT Routine 06/06/2024 8:22 AM EST Simple chronic anemia Chronic kidney disease, unspecified Gammopathy, monoclonal TYPE AND SCREEN Routine 06/02/2024 12:57 PM EST Simple chronic anemia Monoclonal gammopathy Chronic kidney disease, unspecified COMPLETE BLOOD COUNT Routine 06/02/2024 12:57 PM EST Simple chronic anemia Monoclonal gammopathy Chronic kidney disease, unspecified POCT GLUCOSE BLOOD Routine 05/27/2024 11 :32 AM EST POCT GLUCOSE BLOOD Routine 05/27/2024 8: 13 AM EST CBC WITH AUTO DIFFERENTIAL Routine 05/27/2024 6:15 AM EST CBC AND DIFFERENTIAL Routine 05/27/2024 6:15 AM EST BASIC METABOLIC PANEL Routine 05/27/2024 6:15 AM EST POCT GLUCOSE BLOOD Routine 05/26/2024 7: 45 PM EST POCT GLUCOSE BLOOD Routine 05/26/2024 3: 46 PM EST TRANSFUSE RED BLOOD CELLS Routine 05/26/2024 1:42 PM EST PREPARE RBC Routine 05/26/2024 12:22 PM EST POCT GLUCOSE BLOOD Routine 05/26/2024 11 :35 AM EST POCT GLUCOSE BLOOD Routine 05/26/2024 8: 19 AM EST CBC WITH AUTO DIFFERENTIAL Routine 05/26/2024 6:12 AM EST CBC AND DIFFERENTIAL Routine 05/26/2024 6:12 AM EST BASIC METABOLIC PANEL Routine 05/26/2024 6:12 AM EST POCT GLUCOSE BLOOD Routine 05/25/2024 8: 08 PM EST HEMOGLOBIN AND HEMATOCRIT Timed 05/25/2024 7:03 PM EST POCT GLUCOSE BLOOD Routine 05/25/2024 4: 20 PM EST TRANSFUSE RED BLOOD CELLS Routine 05/25/2024 12:41 PM EST PREPARE RBC Routine 05/25/2024 11:55 AM EST POCT GLUCOSE BLOOD Routine 05/25/2024 11 :08 AM EST VITAMIN B12 Add-On 05/25/2024 8:38 AM EST HAPTOGLOBIN Add-On 05/25/2024 8:38 AM EST LACTATE DEHYDROGENASE Add-On 05/25/2024 8:38 AM EST COMPLETE BLOOD COUNT Routine 05/25/2024 8:38 AM EST BASIC METABOLIC PANEL Routine 05/25/2024 8:38 AM EST POCT GLUCOSE BLOOD Routine 05/25/2024 7: 50 AM EST ECG 12-LEAD STAT 05/25/2024 3:38 AM EST XR CHEST 1 VIEW STAT 05/24/2024 10:24 PM EST TRANSFUSE RED BLOOD CELLS Routine 05/24/2024 10:24 PM EST PREPARE RBC Routine 05/24/2024 8:40 PM EST TRANSFUSE RED BLOOD CELLS Routine 05/24/2024 4:41 PM EST CBC WITH AUTO DIFFERENTIAL STAT 05/24/2024 4:25 PM EST FERRITIN STAT 05/24/2024 4:25 PM EST IRON AND TIBC STAT 05/24/2024 4:25 PM EST PROTHROMBIN TIME WITH INR STAT 05/24/2024 4:25 PM EST MAGNESIUM STAT 05/24/2024 4:25 PM EST BASIC METABOLIC PANEL STAT 05/24/2024 4:25 PM EST CBC AND DIFFERENTIAL STAT 05/24/2024 4:25 PM EST PREPARE RBC Routine 05/24/2024 4:15 PM EST ECG 12-LEAD STAT 05/24/2024 4:09 PM EST TN CRITICAL CARE 30-74 MINUTES Routine 05/24/2024 3:15 PM EST TYPE AND SCREEN Routine 05/24/2024 11:37 AM EST Myelodysplastic syndrome (CMS/HCC) COMPLETE BLOOD COUNT Routine 05/24/2024 11:37 AM EST Myelodysplastic syndrome (CMS/HCC) ECG ANNOTATED 05/24/2024 TRANSFUSE RED BLOOD CELLS Routine 04/22/2024 1:04 PM EST Myelodysplastic syndrome (CMS/HCC) PREPARE RBC Routine 04/21/2024 3:26 PM EST Myelodysplastic syndrome (CMS/HCC) TYPE AND SCREEN Routine 04/19/2024 8:00 AM EST Chronic kidney disease, unspecified Simple chronic anemia Gammopathy, monoclonal COMPLETE BLOOD COUNT Routine 04/19/2024 8:00 AM EST Chronic kidney disease, unspecified Simple chronic anemia Gammopathy, monoclonal CBC WITH AUTO DIFFERENTIAL Routine 04/11/2024 1:02 PM EST Iron deficiency anemia, unspecified CBC AND DIFFERENTIAL Routine 04/11/2024 1:02 PM EST Iron deficiency anemia, unspecified URINALYSIS MICROSCOPIC ONLY Routine 04/08/2024 11:11 AM EST Anemia Frequent urination Difficult or painful urination NGO URINE CULTURE TUBE Routine 04/08/2024 11:11 AM EST Anemia Frequent urination Difficult or painful urination URINALYSIS MICROSCOPIC ONLY Routine 04/08/2024 11:11 AM EST Anemia Frequent urination Difficult or painful urination PROSTATE SPECIFIC ANTIGEN SCREEN Routine 04/08/2024 11:11 AM EST Anemia Frequent urination Difficult or painful urination BASIC METABOLIC PANEL Routine 04/08/2024 11:11 AM EST Anemia Frequent urination Difficult or painful urination NON-GYNECOLOGIC CYTOLOGY 04/08/2024 12:00 AM EST Frequency of micturition Anemia, unspecified TRANSFUSE RED BLOOD CELLS Routine 04/07/2024 12:45 PM EST Myelodysplastic syndrome (CMS/HCC) TRANSFUSE RED BLOOD CELLS Routine 04/07/2024 10:42 AM EST Myelodysplastic syndrome (CMS/HCC) PREPARE RBC Routine 04/06/2024 5:43 PM EST Myelodysplastic syndrome (CMS/HCC) TYPE AND SCREEN Routine 04/04/2024 8:00 AM EST Chronic kidney disease, unspecified Monoclonal gammopathy Nutritional anemia, unspecified COMPLETE BLOOD COUNT Routine 04/04/2024 8:00 AM EST Chronic kidney disease, unspecified Monoclonal gammopathy Nutritional anemia, unspecified ECG 03/30/2024 from Last 3 Months Results * Transfuse RBC (06/27/2024 2:53 PM EST) Only the most recent of14 resultswithin the time period is included. Johny Bennett MD BLOOD TRANSFUSION OR DERABLES * Prepare RBC: 2 Units (06/27/2024 9:13 AM EST) Only the most recent of10 resultswithin the time period is included. Product Code [id number] 06/27/2024 10:01 AM EST [facility] Unit Number [id number] 06/27/19 10:01 AM [facility] Crossmatch Compatible 06/27/2024 9:17 AM [facility] Dispense Status Transfused 06/27/2024 10:01 AM [facility] Unit ABO Rh OPOS 06/27/2024 10:01 AM [facility] Unit Expiration Date Time [id number] 06/27/2024 10:01 AM [facility] Unit Blood Type 5100 06/27/2024 10:01 AM [facility] Product Code [id number] 06/27/2024 12:12 PM [facility] Unit Number [id number] 06/27/19 12:12 PM [facility] Crossmatch Compatible 06/27/2024 9:17 AM [facility] Dispense Status Transfused 06/27/2024 12:12 PM [facility] Unit ABO Rh OPOS 06/27/2024 12:12 PM [facility] Unit Expiration Date Time [id number] 06/27/2024 12:12 PM [facility] Unit Blood Type 5100 06/27/2024 12:12 PM [facility] Blood Venous blood specimen / Unknown 06/27/2024 9:13 AM EST 06/24/2024 1:53 PM EST Johny Bennett MD BLOOD BANK PRODUCT O RDERABLES [facility] [address] [place] [address], * (ABNORMAL) CBC auto differential (06/24/2024 1:33 PM EST) Only the most recent of6 resultswithin the time period is included. [facility] Signature WBC 4.6(L) 4.8 - 10.8 K/mcL LAB HEMETOLOGY METHOD 06/24/2024 2:48 PM [facility] RBC 1.90(L) 4.50 - 5.50 M/mcL LAB HEMETOLOGY METHOD 06/24/2024 2:48 PM [facility] Hemoglobin 5.0(LL) 13.5 - 17.5 g/dL LAB HEMETOLOGY METHOD 06/24/2024 2:48 PM [facility] Hematocrit 17.9(LL) 42.0 - 54.0 % LAB HEMETOLOGY METHOD 06/24/2024 2:48 PM [facility] MCV 94.2 79.0 - 98.0 FL LAB HEMETOLOGY METHOD 06/24/2024 2:48 PM [facility] MCH 26.3(L) 27.0 - 32.0 pcg LAB HEMETOLOGY METHOD 06/24/2024 2:48 PM [facility] MCHC 27.9(L) 32.0 - 37.0 g/dL LAB HEMETOLOGY METHOD 06/24/2024 2:48 PM [facility] RDW 18.6(H) 11.0 - 15.0 % LAB HEMETOLOGY METHOD 06/24/2024 2:48 PM [facility] Platelets 246 130 - 400 K/mcL LAB HEMETOLOGY METHOD 06/24/2024 2:48 PM [facility] MPV 10.2 7.0 - 11.0 FL LAB HEMETOLOGY METHOD 06/24/2024 2:48 PM [facility] NRBC 0.4 <1.0 % LAB HEMETOLOGY METHOD 06/24/2024 2:48 PM [facility] NRBC Absolute 0.02 <0.10 K/mcL LAB HEMETOLOGY METHOD 06/24/2024 2:48 PM [facility] Neutrophils Relative 76.6 % LAB HEMETOLOGY METHOD 06/24/2024 2:48 PM [facility] Lymphocytes Relative 10.4 % LAB HEMETOLOGY METHOD 06/24/2024 2:48 PM [facility] Monocytes Relative 10.7 % LAB HEMETOLOGY METHOD 06/24/2024 2:48 PM [facility] Eosinophils Relative 1.5 % LAB HEMETOLOGY METHOD 06/24/2024 2:48 PM [facility] Basophils Relative 0.4 % LAB HEMETOLOGY METHOD 06/24/2024 2:48 PM [facility] Immature Granulocytes Relative 0.4 % LAB HEMETOLOGY METHOD 06/24/2024 2:48 PM [facility] Neutrophils Absolute 3.52 1.50 - 7.00 K/mcL LAB HEMETOLOGY METHOD 06/24/2024 2:48 PM [facility] Lymphocytes Absolute 0.48(L) 1.00 - 5.00 K/mcL LAB HEMETOLOGY METHOD 06/24/2024 2:48 PM [facility] Monocytes Absolute 0.49 0.20 - 1.00 K/mcL LAB HEMETOLOGY METHOD 06/24/2024 2:48 PM [facility] Eosinophils Absolute 0.07 0.00 - 0.50 K/mcL LAB HEMETOLOGY METHOD 06/24/2024 2:48 PM [facility] Basophils Absolute 0.02 0.00 - 0.20 K/mcL LAB HEMETOLOGY METHOD 06/24/2024 2:48 PM [facility] Immature Granulocytes Absolute 0.02 0.00 - 0.03 K/mcL LAB HEMETOLOGY METHOD 06/24/2024 2:48 PM [facility] Blood Venous blood specimen / Unknown Venipuncture / Unknown 06/24/2024 1:33 PM EST 06/24/2024 1:53 PM EST Johny Bennett MD LAB BLOOD ORDERABLES Performing Organization Address [facility] Co de Phone Number [facility] [address] [place] [address], * Type and screen (06/24/2024 1:33 PM EST) Only the most recent of7 resultswithin the time period is included. ABO Group O 06/24/2024 3:12 PM EST [facility] Rh Type Positive 06/24/2024 3:12 PM EST [facility] Antibody Screen Negative 06/24/2024 3:12 PM EST [facility] Blood Venous blood specimen / Unknown Venipuncture / Unknown 06/24/2024 1:33 PM EST 06/24/2024 1:53 PM EST Johny Bennett MD LAB BLOOD BANK TEST ORDERABLES Performing Organization Address [facility]/ZIP Co de Phone Number [facility] [address] [place] [address], * (ABNORMAL) Erythropoietin (06/16/2024 4:31 PM EST) Erythropoietin 586.4(H) 2.6 - 18.5 mIU/mL 06/20/2024 2:17 PM EST [facility] Comment: Test performed at [facility], [address] , [place], [place] ??[address] ? [phone] Brenda Murray MD, PhD - Export Packer Blood Venous blood specimen / Unknown Venipuncture / Unknown 06/16/2024 4:31 PM EST 06/16/2024 4:39 PM EST Johny Bennett MD LAB BLOOD ORDERABLES [facility] [address] [place] [address] * (ABNORMAL) Iron and TIBC (06/16/2024 4:31 PM EST) Only the most recent of2 resultswithin the time period is included. Iron 25(L) 50 - 160 mcg/dL LAB CHEMISTRY METHOD 06/16/2024 5:29 PM EST [facility] TIBC 418 250 - 450 mcg/dL LAB CHEMISTRY METHOD 06/16/2024 5:29 PM EST [facility] Iron Saturation 6(L) 20 - 50 % LAB CHEMISTRY METHOD 06/16/2024 5:29 PM EST [facility] Blood Venous blood specimen / Unknown Venipuncture / Unknown 06/16/2024 4:31 PM EST 06/16/2024 4:39 PM EST Johny Bennett MD LAB BLOOD ORDERABLES Performing Organization Address City/[facility]/ZIP Co de Phone Number [facility] [address] [place] [address], [place] [phone] * (ABNORMAL) Ferritin (06/16/2024 4:31 PM EST) Only the most recent of2 resultswithin the time period is included. Ferritin 25(L) 26 - 388 ng/mL LAB CHEMISTRY METHOD 06/16/2024 9:21 PM EST [facility] Blood Venous blood specimen / Unknown Venipuncture / Unknown 06/16/2024 4:31 PM EST 06/16/2024 4:39 PM EST Johny Bennett MD LAB BLOOD ORDERABLES Performing Organization Address City/[facility]/ZIP Co de Phone Number [facility] [address] [place] [address], [place] [phone] * (ABNORMAL) Reticulocyte count (06/15/2024 12:43 PM EST) Retic Ct Abs 0.120(H) 0.030 - 0.090 M/mcL LAB HEMETOLOGY METHOD 06/17/2024 8:47 AM EST [facility] Retic Ct Pct 7.1(H) 0.7 - 1.7 % LAB HEMETOLOGY METHOD 06/17/2024 8:47 AM EST [facility] Immature Retic Fract 25.6(H) 2.3 - 15.9 % [facility] 06/17/2024 8:47 AM [facility] Reticulocyte Hemoglobin 17.4(L) >29.0 pcg LAB HEMETOLOGY METHOD 06/17/2024 8:47 AM [facility] Blood Venous blood specimen / Unknown Venipuncture / Unknown 06/15/2024 12:43 PM EST 06/15/2024 4:46 PM EST Johny Bennett MD LAB BLOOD ORDERABLES [facility] [address] [place] [address], * Miscellaneous reference lab test (06/07/2024) Only the most recent of5 resultswithin the time period is included. Provider Onbase LAB BLOOD ORDERABLES * (ABNORMAL) Complete blood count (06/06/2024 8:22 AM EST) Only the most recent of6 resultswithin the time period is included. WBC 6.4 4.8 - 10.8 K/mcL LAB HEMETOLOGY METHOD 06/06/2024 9:55 AM EST [facility] RBC 1.80(L) 4.50 - 5.50 M/mcL LAB HEMETOLOGY METHOD 06/06/2024 9:55 AM [facility] Hemoglobin 5.1(LL) 13.5 - 17.5 g/dL LAB HEMETOLOGY METHOD 06/06/2024 9:55 AM [facility] Hematocrit 17.9(LL) 42.0 - 54.0 % LAB HEMETOLOGY METHOD 06/06/2024 9:55 AM [facility] MCV 101.1(H) 79.0 - 98.0 FL LAB HEMETOLOGY METHOD 06/06/2024 9:55 AM [facility] MCH 28.5 27.0 - 32.0 pcg LAB HEMETOLOGY METHOD 06/06/2024 9:55 AM [facility] MCHC 28.2(L) 32.0 - 37.0 g/dL LAB HEMETOLOGY METHOD 06/06/2024 9:55 AM [facility] RDW 22.2(H) 11.0 - 15.0 % LAB HEMETOLOGY METHOD 06/06/2024 9:55 AM [facility] Platelets 282 130 - 400 K/mcL LAB HEMETOLOGY METHOD 06/06/2024 9:55 AM [facility] MPV 11.0 7.0 - 11.0 FL LAB HEMETOLOGY METHOD 06/06/2024 9:55 AM [facility] NRBC 0.0 <1.0 % LAB HEMETOLOGY METHOD 06/06/2024 9:55 AM [facility] NRBC Absolute 0.00 <0.10 K/mcL LAB HEMETOLOGY METHOD 06/06/2024 9:55 AM [facility] Blood Venous blood specimen / Unknown Venipuncture / Unknown 06/06/2024 8:22 AM EST 06/06/2024 8:50 AM EST Johny Bennett MD LAB BLOOD ORDERABLES [facility] [address] [place] [address], [place] [phone] * (ABNORMAL) POCT Glucose, blood (05/27/2024 11:32 AM EST) Only the most recent of10 resultswithin the time period is included. Glucose POCT 138(H) 70 - 100 mg/dL 05/27/2024 11:33 AM [facility] Blood Capillary blood specimen / Unknown 05/27/2024 11:32 AM EST 05/27/2024 11:34 AM EST Marley Healy MD LAB POINT OF CARE TE ST DOCKED DEVICE UNSOLICITED RESULTS Performing Organization Address [facility] Co de Phone Number [facility] [address] [place] [address], [place] [phone] * (ABNORMAL) Basic metabolic panel (05/27/2024 6:15 AM EST) Only the most recent of5 resultswithin the time period is included. Sodium 138 133 - 145 mmol/L LAB CHEMISTRY METHOD 05/27/2024 8:16 AM [facility] Potassium 3.0(L) 3.5 - 5.5 mmol/L LAB CHEMISTRY METHOD 05/27/2024 8:16 AM [facility] Chloride 94(L) 96 - 110 mmol/L LAB CHEMISTRY METHOD 05/27/2024 8:16 AM [facility] CO2 36(H) 21 - 32 mmol/L LAB CHEMISTRY METHOD 05/27/2024 8:16 AM [facility] Anion Gap 8 3 - 11 LAB CHEMISTRY METHOD 05/27/2024 8:16 AM [facility] Glucose 104(H) 70 - 100 mg/dL LAB CHEMISTRY METHOD 05/27/2024 8:16 AM [facility] BUN 27(H) 5 - 25 mg/dL LAB CHEMISTRY METHOD 05/27/2024 8:16 AM EST [facility] Creatinine 1.74(H) 0.70 - 1.30 mg/dL LAB CHEMISTRY METHOD 05/27/2024 8:16 AM EST [facility] eGFR 41(L) >=60 mL/min/1. 73m2 LAB CHEMISTRY METHOD 05/27/2024 8:16 AM EST [facility] Comment:Calculation based on the??Chronic Kidney Disease Epidemiology Collaboration (CKD-EPI) equation refit??without adjustment for race. BUN/Creatinine Ratio 15.5 LAB CHEMISTRY METHOD 05/27/2024 8:16 AM [facility] Calcium 7.9(L) 8.5 - 10.5 mg/dL LAB CHEMISTRY METHOD 05/27/2024 8:16 AM [facility] Blood Venous blood specimen / Unknown Venipuncture / Unknown 05/27/2024 6:15 AM EST 05/27/2024 6:48 AM EST Estpraveena Healy MD LAB BLOOD ORDERABLES [facility] [address] [place] [address], * (ABNORMAL) Hemoglobin and hematocrit (05/25/2024 7:03 PM EST) Hemoglobin 6.9(L) 13.5 - 17.5 g/dL LAB HEMETOLOGY METHOD 05/25/2024 7:23 PM EST [facility] Hematocrit 22.7(L) 42.0 - 54.0 % LAB HEMETOLOGY METHOD 05/25/2024 7:23 PM EST [facility] Blood Venous blood specimen / Unknown Venipuncture / Unknown 05/25/2024 7:03 PM EST 05/25/2024 7:20 PM EST Estate Kokosadze MD LAB BLOOD ORDERABLES Performing Organization Address [facility]/ZIP Co de Phone Number [facility] [address] [place] [address], [place] [phone] * Lactate dehydrogenase (05/25/2024 8:38 AM EST) [facility] LDH 142 120 - 246 unit/L LAB CHEMISTRY METHOD 05/25/2024 12:58 PM EST [facility] Blood Venous blood specimen / Unknown Venipuncture / Unknown 05/25/2024 8:38 AM EST 05/25/2024 8:42 AM EST Marley Healy MD LAB BLOOD ORDERABLES Performing Organization Address [facility]/ZIP Co de Phone Number [facility] [address] [place] [address], [place] [phone] * Haptoglobin (05/25/2024 8:38 AM EST) [facility] Haptoglobin 151 16 - 200 mg/dL LAB CHEMISTRY METHOD 05/25/2024 12:58 PM EST [facility] Blood Venous blood specimen / Unknown Venipuncture / Unknown 05/25/2024 8:38 AM EST 05/25/2024 8:42 AM EST Marley Healy MD LAB BLOOD ORDERABLES Performing Organization Address City/[facility]/ZIP Co de Phone Number [facility] [address] [place] [address], [place] [phone] * (ABNORMAL) Vitamin B12 (05/25/2024 8:38 AM EST) [facility] Vitamin B-12 1,129(H) 250 - 900 pcg/mL LAB CHEMISTRY METHOD 05/25/2024 12:58 PM EST [facility] Blood Venous blood specimen / Unknown Venipuncture / Unknown 05/25/2024 8:38 AM EST 05/25/2024 8:42 AM EST Marley Healy MD LAB BLOOD ORDERABLES [facility] [address] [place] [address], [place] [phone] * ECG 12 lead (05/25/2024 3:38 AM EST) Only the most recent of2 resultswithin the time period is included. Ventricular Rate ECG 80 BPM [facility] Atrial Rate 83 BPM G[facility] QRS Duration 104 ms GEMUSE Q-T Interval 406 ms GEMUSE QTc 468 ms GEMUSE R Addison 26 degrees GEMUSE T Addison 11 degrees GEMUSE ECG Interpretation Accelerated Junctional rhythm with frequent Premature ventricular complexes Low voltage QRS Abnormal ECG When compared with ECG of 24-MAY-2024 16:09, (unconfirmed) Previous ECG has undetermined rhythm, needs review Confirmed by Antonia GRAF YUFENG ([id number]) on 05/25/2024 11:10:58 AM G[facility] 05/25/2024 3:38 AM EST 05/25/2024 11:10 AM EST Levy Hein MD ECG ORDERABLES Performing Organization Address City/[facility]/ZIP Co de Phone Number [facility] * XR Chest 1 View (05/24/2024 10:24 PM EST) Anatomical Region Laterality Modality Body Radio Fluoroscop y 05/25/2024 8:18 AM EST Impressions 05/25/2024 8:19 AM EST Expanded lungs without acute pneumonic process. The heart size is borderline enlarged -------- FINAL REPORT -------- Dictated By: Jose Angel Rdz Dictated Date: 05/25/2024 08:18 ET Assigned Physician: Jose Angel Rdz Reviewed and Electronically Signed By: Jose Angel Rdz Signed Date: 05/25/2024 08:19 ET Workstation ID: [id number] Transcribed By: Self Edit Transcribed Date: 05/25/2024 08:18 ET Narrative 05/25/2024 8:19 AM EST EXAMINATION: Chest one view portable sitting at 2220 hours. CLINICAL INDICATION: SOB. COMPARISON: Chest portable 09/24/2020. FINDINGS: The lungs are expanded and clear. The heart size is ??borderline enlarged. Pulmonary vascularity is normal. No gross bony abnormality seen. Procedure Note Jose Angel Rdz MD - 05/25/2024 EXAMINATION: Chest one view portable sitting at 2220 hours. CLINICAL INDICATION: SOB. COMPARISON: Chest portable 09/24/2020. FINDINGS: The lungs are expanded and clear. The heart size is borderlineenlarged. Pulmonary vascularity is normal. No gross bony abnormalityseen. IMPRESSION: Expanded lungs without acute pneumonic process. The heart size isborderline enlarged -------- FINAL REPORT -------- Dictated By: Jose Angel Rdz Dictated Date: 05/25/2024 08:18 ET Assigned Physician: Jose Angel Rdz Reviewed and Electronically Signed By: Jose Angel Rdz Signed Date: 05/25/2024 08:19 ET Workstation ID: [id number] Transcribed By: Self Edit Transcribed Date: 05/25/2024 08:18 ET Shanta [facility]ITAKER IMG XR PROCEDURES * Prothrombin time with INR (05/24/2024 4:25 PM EST) Protime 12.9 10.6 - 13.9 sec LAB COAGULATION METHOD 05/24/2024 4:49 PM EST [facility] INR 1.0 LAB COAGULATION METHOD 05/24/2024 4:49 PM EST [facility] Blood Venous blood specimen / Unknown Venipuncture / Unknown 05/24/2024 4:25 PM EST 05/24/2024 4:32 PM EST Edison WHITAKER LAB BLOOD ORDERAB LES [facility] [address] [place] [address], * (ABNORMAL) Magnesium (05/24/2024 4:25 PM EST) Magnesium 1.8(L) 1.9 - 2.6 mg/dL LAB CHEMISTRY METHOD 05/24/2024 5:21 PM EST [facility] Comment:Hemolysis present Blood Venous blood specimen / Unknown Venipuncture / Unknown 05/24/2024 4:25 PM EST 05/24/2024 4:32 PM EST Edison WHITAKER LAB BLOOD ORDERAB LES [facility] [address] [place] [address], * [place] CRITICAL CARE 30-74 MINUTES (05/24/2024 3:15 PM EST) Narrative Alonzo Wilkerson MD - 05/24/2024 3:15 PM EST JULIANNE Botello ? 05/24/2024 ??4:46 PM Critical Care Performed by: JULIANNE Botello Authorized by: Alonzo Wilkerson MD ?? Critical care provider statement: ??Critical care time (minutes): ??60 ??Critical care time was exclusive of: ??Separately billable procedures and treating other patients and teaching time ??Critical care was necessary to treat or prevent imminent or life-threatening deterioration of the following conditions: severe symptomatic anemia. ??Critical care was time spent personally by me on the following activities: ??Blood draw for specimens, development of treatment plan with patient or surrogate, evaluation of patient's response to treatment, re-evaluation of patient's condition, review of old charts, ordering and review of laboratory studies and ordering and performing treatments and interventions ??I assumed direction of critical care for this patient from another provider in my specialty: no ?Care discussed with: admitting provider ?? Alonzo Wilkerson MD IN CLINIC/BEDSIDE O RDERABLES * ECG-Annotated (05/24/2024) Provider Onbase ECG ORDERABLES * Urinalysis microscopic only (04/08/2024 11:11 AM EST) RBC, Urine 0.5 0 - 4 /HPF LAB URINALYSIS - AUTOMATED METHOD 04/08/2024 4:07 PM EST [facility] WBC, Urine 0.3 0 - 4 /HPF LAB URINALYSIS - AUTOMATED METHOD 04/08/2024 4:07 PM EST [facility] Squamous Epithelial, Urine 7 0 - 60 /LPF LAB URINALYSIS - AUTOMATED METHOD 04/08/2024 4:07 PM [facility] Bacteria, Urine Negative Negative /HPF LAB URINALYSIS - AUTOMATED METHOD 04/08/2024 4:07 PM [facility] Hyaline Casts, Urine 0.0 0 - 3 /LPF LAB URINALYSIS - AUTOMATED METHOD 04/08/2024 4:07 PM [facility] Urine Urine specimen obtained by clean catch procedure / Unknown Non-blood Collection / Unknown 04/08/2024 11:11 AM EST 04/08/2024 11:11 AM EST Grayson Berrios DO LAB URINE ORDERABLES [facility] [address] [place] [address], * Prostate specific antigen screen (04/08/2024 11:11 AM EST) PSA 1.31 0.00 - 4.00 ng/mL LAB CHEMISTRY METHOD 04/08/2024 6:14 PM EST [facility] Blood Venous blood specimen / Unknown Venipuncture / Unknown 04/08/2024 11:11 AM EST 04/08/2024 11:11 AM EST Narrative [facility] - 04/08/2024 6:14 PM EST The Siemens Advia Centaur Chemiluminescent Immunoassay is used. Results obtained with different assay methods or kits cannot be used interchangeably. Results cannot be interpreted as absolute evidence of the presence or absence of malignant disease. [facility] BLOOD ORDERABLES Performing Organization Address City/[facility]/ZIP Co de Phone Number [facility] [address] [place] [address], [place] [phone] * Ngo urine culture tube (04/08/2024 11:11 AM EST) Extra Tube Hold for add-ons. 04/08/2024 5:01 PM [facility] Comment:Auto resulted. Urine Urine specimen obtained by clean catch procedure / Unknown Non-blood Collection / Unknown 04/08/2024 11:11 AM EST 04/08/2024 11:11 AM EST [facility] URINE ORDERABLES Performing Organization Address City/[facility]/ZIP Co de Phone Number [facility] [address] [place] [address], [place] [phone] * Non-gynecologic cytology (04/08/2024 12:00 AM EST) Final Diagnosis Urine: Negative for high grade urothelial carcinoma. 04/13/2024 4:06 PM [facility] Specimen A Adequacy Satisfactory for evaluation 04/13/2024 4:06 PM [facility] Gross Description A. Urine, Clean Catch, : Rec'd 20 cc of clear yellow fluid. 1 ThinPrep preparation. 04/13/2024 4:06 PM [facility] Disclaimer Unless otherwise specified, all tissue is 10% NB formalin fixed and paraffin embedded. Technical cytopathology services provided by [facility], at [address] [place] [address] (CLIA # [id number]/Sonia Singleton MD, Export Packer.) 04/13/2024 4:06 PM EST [facility] Urine Urine specimen obtained by clean catch procedure / Unknown 04/08/2024 04/11/2024 10:49 AM EST Meghana WHITAKER LAB CYTOLOGY ORDERAB LES 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 Health Care Decision (hx) 09/27/2020 AD LAST DIRECTIVE Health Care Decision (hx) 09/27/2020 AD LAST DIRECTIVE Health Care Decision (hx) 09/27/2020 AD LAST DIRECTIVE Health Care Decision (hx) 09/27/2020 AD LAST DIRECTIVE Health Care Decision (hx) 09/27/2020 AD LAST DIRECTIVE Health Care Decision (hx) 09/27/2020 AD LAST DIRECTIVE Health Care Decision (hx) 09/27/2020 AD LAST DIRECTIVE Health Care Decision (hx) 09/27/2020 AD LAST DIRECTIVE Health Care Decision (hx) 09/27/2020 AD LAST DIRECTIVE Health Care Decision (hx) 09/27/2020 AD LAST DIRECTIVE Health Care Decision (hx) 09/27/2020 AD LAST DIRECTIVE Health Care Decision (hx) 09/27/2020 AD LSAT DIRECTIVE Health Care Decision (hx) 09/27/2020 AD LAST DIRECTIVE Health Care Decision (hx) 09/27/2020 AD LAST DIRECTIVE Health Care Decision (hx) 09/25/2020 AD LAST DIRECTIVE Health Care Decision (hx) 09/25/2020 AD LAST DIRECTIVE Health Care Decision (hx) 09/25/2020 AD LAST DIRECTIVE Health Care Decision (hx) 09/25/2020 AD LAST DIRECTIVE Health Care Decision (hx) 09/25/2020 AD LAST DIRECTIVE Health Care Decision (hx) 09/25/2020 AD LAST DIRECTIVE Health Care Decision (hx) 09/25/2020 AD LAST DIRECTIVE Health Care Decision (hx) 09/25/2020 AD LAST DIRECTIVE Health Care Decision (hx) 09/25/2020 AD LAST DIRECTIVE Health Care Decision (hx) 09/25/2020 AD LAST DIRECTIVE Health Care Decision (hx) 09/25/2020 AD LAST DIRECTIVE Health Care Decision (hx) 09/25/2020 AD LAST DIRECTIVE Health Care Decision (hx) 09/25/2020 AD LAST DIRECTIVE Health Care Decision (hx) 09/25/2020 AD LAST DIRECTIVE * Full Code - Default (Latest Code Status on File) Date Activated Date Inactivated Comments 05/24/2024 5:20 PM 05/27/2024 5:35 PM This is or nicolette is used when code status has not been discussed with the patient, or code status is otherwise unknown/unconfirmed To update the patient's code status, place a code status order. Do not modify or discontinue any currently active code status orders. Healthcare Agents on File Name Relationship Healthcare Agent Relationshi p Communication Farida Littleo Spouse Health Care Agent Care Teams Pediatrics Teacher Relationship Specialty Start Date End Date Grayson Berrios DO [address] [place] [phone] PCP - General 08/22/15
== END 2024-06-28 11:02 | disposition home or self-care (01) ==
PROVIDERS: PCP Internal Medicine; Visit Provider Internal Medicine Cardiovascular Disease
DX: I50.9 Heart failure, unspecified (principal); I48.20 Chronic atrial fibrillation, unspecified
CPT/HCPCS: 99215; G2211

== ENCOUNTER → 2024-06-28 10:12 | Outpatient (BNVA) | payer MEDICARE, SELFPAY | PROVIDERS: PCP Internal Medicine; Visit Provider Internal Medicine Cardiovascular Disease | DX: I50.9 Heart failure, unspecified (principal); I48.20 Chronic atrial fibrillation, unspecified | CPT/HCPCS: 99212 ==

== ENCOUNTER 2024-09-05 12:18 | Outpatient (AMB) | payer MEDICARE, SELFPAY ==
--- NOTE | 2024-09-05 12:31 | MHC.OFFVIS ---
Vital Signs 09/05/24 12:32 Height 5 ft 8 in Weight 171 lb 15.369 oz BMI 26.1 BP 108/60 Blood Pressure Location Lt brachial Position Sitting Pulse 60 Intake Visit Reasons: Follow up after 1 week hospital stay at [facility] Intake Note: Follow-up after 1 week at [facility] has had bleeding Rug Repairer Required: No Allergies No Known Allergies Allergy (Verified 06/09/24 10:12) Medication List - Last Reconciled 09/05/24 by Mateo Bird MD albuterol sulfate 90 mcg/actuation 2 inhalations inhalation QID PRN ascorbic acid (vitamin C) 500 mg PO DAILY cyanocobalamin (vitamin B-12) 1,000 mcg PO DAILY ezetimibe 10 mg PO DAILY ferrous gluconate 324 mg PO DAILY fluticasone furoate-vilanterol 100-25 mcg/dose (Breo Ellipta) 1 inh inhalation DAILY omeprazole 40 mg PO DAILY@0630 potassium chloride ER 20 mEq PO TID pravastatin 80 mg PO DAILY torsemide 20 mg PO ONCE umeclidinium 62.5 mcg/actuation (Incruse Ellipta) 1 inh inhalation DAILY HPI Comments Details: Deny comes for follow-up. He had another hospitalization couple weeks ago for severe GI bleed leading to hospitalization. He is currently off aspirin and Plavix as was expected. His digoxin also was discontinued as he might have renal insufficiency and digoxin elevated levels and slow heart rate. Since then his heart rate has remained stable. He has not had any. He was not had any heart failure symptoms. No orthopnea, PND, abdominal distention, leg edema. He is currently on lower dose of torsemide 20 mg. Denies any lightheadedness, syncope. No recurrent GI bleed. Currently on iron therapy. He says most recent hemoglobin from today was 8.4. [facility] Medical History (Updated 09/05/24 @ 12:55 by Mateo Bird MD) Chronic heart failure with preserved ejection fraction (HFpEF) Chronic a-fib Severe anemia Hypokalemia Macrocytic anemia Partial small bowel obstruction Anemia CHF (congestive heart failure) Diabetes mellitus CKD (chronic kidney disease) HTN (hypertension) Biatrial enlargement Pulmonary hypertension HLD (hyperlipidemia) Current use of anticoagulant therapy Surgical History Hx of total hip arthroplasty Hx of colonoscopy Hx of esophagogastroduodenoscopy History of nephrectomy Hx of hernia repair Family History Father Cancer Mother No problems noted. Social History Household Members: Significant Other Housing: House Do you presently have visiting nurse or other home services: No Comment: refused bed alarm Patient Tobacco Use Status: Former Tobacco user Second Hand Smoke Exposure: No Advance Directives Date on File: 06/01/00 service: No Review of Systems Const Denies chills, Denies fatigue, Denies fever(s), Denies frequent falls, Denies weakness, Denies weight gain and Denies weight loss ENT Denies dizziness Card Denies chest pain, Denies leg edema, Denies lightheadedness, Denies palpitations, Denies dyspnea, Denies dyspnea on exertion, Denies orthopnea and Denies other (loss of consciousness) Resp Denies cough, Denies dyspnea and Denies dyspnea on exertion GI Denies hematochezia and Denies change in stool character Musc Denies abnormal gait, Denies muscle weakness, Denies numbness, Denies radiating pain into limb and Denies tingling Neuro Denies abnormal gait, Denies dizziness, Denies frequent falls, Denies numbness, Denies tingling and Denies weakness Endo Denies fatigue and Denies palpitations Physical Exam Vital Signs: Last Vital Signs Pulse 60 09/05/24 12:32 BP 108/60 09/05/24 12:32 BMI result Body Mass Index 26.1 Const Other: wearing O2 with nasal cannula General: cooperative, comfortable, no acute distress and tired appearing Nutritional Appearance: overweight Orientation/consciousness: patient oriented x3 Neck Neck: Yes normal visual inspection Resp Effort & Inspection: normal respiratory effort Auscultation: rales (each lateral base), no rhonchi and no wheezes Cardio Jugular venous distension: no JVD Rate: regular rate Rhythm: abnormal rhythm Heart sounds: S1 normal heart sound present, S2 normal heart sound present, no murmurs and no rubs GI Inspection: Yes normal to inspection Neuro General: patient oriented x3 Extrem Other: edema in lower legs, R>L, mid calf down to feet Psych Appearance: grossly normal Mental Status: mental status grossly normal Speech and movement: Normal speech and movement present Assessment & Plan Assessment & Plan (1) Chronic heart failure with preserved ejection fraction (HFpEF): Code(s): I50.32 - Chronic diastolic (congestive) heart failure Category: Medical Plan: Heart failure preserved ejection fraction this elderly gentleman with multiple comorbidities. Clinically currently appears euvolemic and well compensated. Recent admission was triggered by significant GI bleed. Clinically appears to be euvolemic and well compensated. Continue current diuretic dose. Daily weight monitoring avoidance salt loading was discussed. Additional diuretics as need be. Continue current rate control approach. Continue oxygen therapy for COPD. Encouraged to increase his activity level as tolerated in terms of aerobic capacity as well as muscle strengthening. He understands and agrees. Continue iron therapy to prevent recurrent anemia and maintain hematocrit over 30 if possible. Followed by Hematology at [facility] (2) Chronic a-fib: Code(s): I48.20 - Chronic atrial fibrillation, unspecified Category: Medical Plan: Chronic rate control atrial fibrillation. Status post Watchman device. Currently off dual antiplatelet therapy due to recurrent significant GI bleed leading to hospitalization. Slightly high risk of thrombotic complication was discussed with him. Currently not on any medications for rate control. Avoid digoxin therapy due to renal insufficiency for now. If rate becomes difficult control may require repeat digoxin therapy. Will follow up in the clinic in 3 months time, sooner p.r.n.. Thank you for allowing me to partake in his care Medications: Changed From torsemide 40 mg (2 x 20 mg) PO BID 30 days 120 tabs 6RF To torsemide 20 mg PO ONCE Coding Level of Care Code Est Pt Level 4 (94185) Complex EM visit Add On G2211 Diagnoses Chronic heart failure with preserved ejection fraction (HFpEF) I50.32 Chronic a-fib I48.20
[2024-09-05 12:32] VITALS: BP 108/60; PULSE 60; BMI 26.1
--- OUTSIDE RECORDS SUMMARY | 2024-09-05 14:39 | XMS_ITS | Encounter Summary ---
Author Organization [facility] Address [address] [place] [address] Care Team Providers Care Mitten Sewer Name Role Phone Grayson Berrios DO Primary Care Provider [phone] Reason for Visit * Episode Based Medications (Routine) - Authorized Specialty Diagnoses / Procedures Referred By Contac t Referred To Contact Diagnoses Chronic renal failure, stage 3 (moderate), unspecified whether stage 3a or 3b CKD (CMS/HCC) Anemia, unspecified type Drug therapy Johny Bennett MD [address] [place] [address] Phone: tel: fax: [facility] Infusion [facility] [address] [place] [phone] Phone: tel: fax: Referral ID Status Reason Start Date Expiration Date V isits Requested Visits Authorized [id number] Authorized 06/16/2024 06/16/2025 1 52 Encounter Details Date Type Department Care Team (Latest Contact Info) Description 09/05/2024 8:12 AM EDT Hospital Encounter [facility] [address] [place] [phone] Johny Bennett MD [address] [place] [address] Chronic renal failure, stage 3 (moderate), unspecified whether stage 3a or 3b CKD (CMS/HCC) (Primary Dx); Anemia, unspecified type Social History Tobacco Use Types Packs/Day Years Used Date Smoking Tobacco: Former Cigarettes Q uit: 12/31/2010 Passive Smoke Exposure: Past Smokeless Tobacco: Never Comments:Quit 2011 Alcohol Use Standard Drinks/Week Comments Not Currently 0 (1 standard drink = 0.6 oz pure alcohol) Quit 2011, history of heavy consumption Interpersonal Safety Answer Date Record ed Physical Abuse 08/24/2024 Verbal Abuse 08/24/2024 Sex and Gender Information Value Date Recorded Sex Assigned at Male 06/16/2024 10:59 AM EST Legal Sex Male 10:15 PM EST Gender Identity Male 06/16/2024 10:59 AM EST Sexual Orientation Straight 06/16/2024 10 :59 AM EST documented as of this encounter Last Filed Vital Signs Vital Sign Reading Time Taken Comments Blood Pressure 116/54 09/05/2024 8:23 AM EDT Pulse 63 09/05/2024 8:23 AM EDT Temperature 36.7 ??C (98 ??F) 09/05/2024 8:23 AM EDT Respiratory Rate - - Oxygen Saturation 100% 09/05/2024 8:23 AM EDT Inhaled Oxygen Concentration - - Weight - - Height - - Body Mass Index - - documented in this encounter Progress Notes * Marlee Fraser RN - 09/05/2024 8:30 AM EDT Pt arrives ambulatory for retacrit injection. Pt reports feeling well overall. Medications, allergies, labs, and assessment reviewed. Medication released to pharmacy and brought to room temperature. Injection given LEFT arm SQ. Pt tolerated well. Pt had labs drawn downstairs. H/H 8.01/27 - no need for PRBC transfusion tomorrow. Appointment made for next injection and possible transfusion the next day. Pt stable at discharge. documented in this encounter Plan of Treatment Upcoming Encounters Date Type Department Care Team ([facility] Contact Info) Description 09/12/2024 8:30 AM EDT Appointment [facility] Infusion Center 271 [facility] 2nd [place] [phone] 09/14/2024 7:15 AM EDT Clinical Support Gastroenterology - 299 [facility] 299 [facility] [address] [place] [address] 11/03/2024 10:15 AM EDT Office Visit [facility] Hematology Oncology [address] [place] [phone] Johny Bennett MD [address] [place] [address] 11/17/2024 10:00 AM EDT Office Visit Pulmonolgy - [place] 175 [facility] 200 [place] [phone] Jessica Neal MD 175 [facility] 200 [place] [address] documented as of this encounter Visit Diagnoses Diagnosis Chronic renal failure, stage 3 (moderate), unspecified whether stage 3a or 3b CKD (CMS/HCC)- Primary Anemia, unspecified type Drug therapy Encounter for other specified aftercare documented in this encounter Administered Medications Inactive Administered Medications - up to 3 most recent administrations Medication Order MAR Action Action Date Dose Rate Site epoetin donna-epbx (RETACRIT) injection 20,000 Units 20,000 Units, subcutaneous, Once, On Thu09/05/24 at 0845, For 1 doseIndications:Chronic renal failure, stage 3 (moderate), unspecified whether stage 3a or 3b CKD (CMS/HCC),Anemia, unspecified type Given 09/05/2024 9:00 AM EDT 20,000 Units Left Upper Arm (Back) documented in this encounter Orders Medications Ordered That Bryon ht Not Have Been Administered Count Last Ordered Date First Ordered Date epoetin donna-epbx (RETACRIT) injection 20,000 Units 1 09/05/2024 documented in this encounter Care Teams Mitten Sewer Relationship Specialty Start Date End Date Grayson Berrios DO [address] [place] [phone] PCP - General 08/22/15 documented as of this encounter
--- OUTSIDE RECORDS SUMMARY | 2024-09-05 14:39 | XMS_ITS | Encounter Summary ---
Author Organization [facility] Address [address] [place] [address] Care Team Providers Care Legend Maker Name Role Phone Grayson Berrios DO Primary Care Provider [phone] Encounter Details Date Type Department Care Team (Late st Contact Info) Description 04/04/2024 Lab Requisition [facility] - Main Lab 299 [facility] [place] [phone] Johny Bennett MD [address] [place] [address] Chronic kidney disease, unspecified; Monoclonal gammopathy; Nutritional [...] AM EST documented as of this encounter Plan of Treatment Upcoming Encounters Date Type Department Care Team (Late st Contact Info) Description 09/12/2024 8:30 AM EDT Appointment [facility] Infusion Center [address] [facility] 2nd [place] [phone] 09/14/2024 7:15 AM EDT Clinical Support Gastroenterology - 299 [facility] 299 [facility] [address] [place] [address] 11/03/2024 10:15 AM EDT Office Visit [facility] Hematology Oncology [address] [place] [phone] Johny Bennett MD [address] [place] [address] 11/17/2024 10:00 AM EDT Office Visit Pulmonolgy - [place] 175 [facility] 200 [place] [phone] Jessica Neal MD 175 [facility] 200 [place] [address] documented as of this encounter Procedures Procedure [...] ABO Group O 04/04/2024 12:50 PM EST [facility] Rh Type Positive 04/04/2024 12:50 PM EST [facility] Antibody Screen Negative 04/04/2024 12:50 PM EST [facility] Blood Venous blood specimen / Unknown 04/04/2024 8:00 AM EST 04/04/2024 12:01 PM EST Johny Bennett MD LAB BLOOD BANK TEST ORDERABL ES Final Result [facility] [address] [place] [address], * (ABNORMAL) Complete blood count (04/04/2024 8:00 AM EST) WBC 5.1 4.8 - 10.8 K/mcL LAB HEMETOLOGY METHOD 04/04/2024 10:13 AM [facility] RBC 2.50(L) 4.50 - 5.50 M/mcL LAB HEMETOLOGY METHOD 04/04/2024 10:13 AM [facility] Hemoglobin 6.6(L) 13.5 - 17.5 g/dL LAB HEMETOLOGY METHOD 04/04/2024 10:13 AM [facility] Hematocrit 23.2(L) 42.0 - 54.0 % LAB HEMETOLOGY METHOD 04/04/2024 10:13 AM [facility] MCV 91.3 79.0 - 98.0 FL LAB HEMETOLOGY METHOD 04/04/2024 10:13 AM [facility] MCH 26.0(L) 27.0 - 32.0 pcg LAB HEMETOLOGY METHOD 04/04/2024 10:13 AM [facility] MCHC 28.4(L) 32.0 - 37.0 g/dL LAB HEMETOLOGY METHOD 04/04/2024 10:13 AM [facility] RDW 17.5(H) 11.0 - 15.0 % LAB HEMETOLOGY METHOD 04/04/2024 10:13 AM [facility] Platelets 273 130 - 400 K/mcL LAB HEMETOLOGY METHOD 04/04/2024 10:13 AM [facility] MPV 10.8 7.0 - 11.0 FL LAB HEMETOLOGY METHOD 04/04/2024 10:13 AM EST [facility] NRBC 0.0 <1.0 % LAB HEMETOLOGY METHOD 04/04/2024 10:13 AM EST [facility] NRBC Absolute 0.00 <0.10 K/mcL LAB HEMETOLOGY METHOD 04/04/2024 10:13 AM EST [facility] Blood Venous blood specimen / Unknown 04/04/2024 8:00 AM EST 04/04/2024 9:58 AM EST us Johny Bennett MD LAB BLOOD ORDERABLES Final R esult [facility] [address] [place] [address], documented in this encounter Visit Diagnoses Diagnosis Chronic kidney disease, unspecified Monoclonal gammopathy Monoclonal paraproteinemia Nutritional anemia, unspecified documented in this encounter Care Teams Legend Maker Relationship Specialty Start Date End Date Grayson Berrios DO [address] [place] [phone] PCP - General 08/22/15 documented as of this encounter
--- OUTSIDE RECORDS SUMMARY | 2024-09-05 14:39 | XMS_ITS | Encounter Summary ---
Author Organization [facility] Address [address] [place] [address] Care Team Providers Care Geoscientist Name Role Phone Grayson Berrios DO Primary Care Provider [phone] Encounter Details Date Type Department Care Team (Late st Contact Info) Description 04/11/2024 Lab Requisition [facility] - Main Lab [address] [facility] [address] [place] [address] Meghana Hayden PA [address] [place] [phone] Frequency of micturition; Anemia, unspecified Social History [...] Info) Description 09/12/2024 8:30 AM EDT Appointment [facility] Infusion Center 271 [facility] 2nd [place] [phone] 09/14/2024 7:15 AM EDT Clinical Support Gastroenterology - 299 [facility] 299 [facility] [address] [place] [address] 11/03/2024 10:15 AM EDT Office Visit [facility] Hematology Oncology [address] [place] [phone] Johny Bennett MD [address] [place] [address] 11/17/2024 10:00 AM EDT Office Visit Pulmonolgy - [place] 175 [facility] 200 [place] [phone] Jessica Neal MD 175 [facility] 200 [place] [address] documented as of this encounter Procedures Procedure Name Priority Date/Time Associated Diagnosis Comments NON-GYNECOLOGIC CYTOLOGY 04/08/2024 12:00 AM EST Frequency of micturition Anemia, unspecified documented in this encounter Results * Non-gynecologic cytology (04/08/2024 12:00 AM EST) Final Diagnosis Urine: Negative for high grade urothelial carcinoma. 04/13/2024 4:06 PM [facility] Specimen A Adequacy Satisfactory for evaluation 04/13/2024 4:06 PM [facility] Gross Description A. Urine, Clean Catch, : Rec'd 20 cc of clear yellow fluid. 1 ThinPrep preparation. 04/13/2024 4:06 PM [facility] Disclaimer Unless otherwise specified, all tissue is 10% NB formalin fixed and paraffin embedded. Technical cytopathology services provided by [facility], at [address] [place] [address] (CLIA # [id number]/Sonia Singleton MD, Accountant Cost.) 04/13/2024 4:06 PM EST [facility] Urine Urine specimen obtained by clean catch procedure / Unknown 04/08/2024 04/11/2024 10:49 AM EST us Meghana WHITAKER LAB CYTOLOGY ORDERABLES Wendie callejas Result [facility] [address] [place] [address], documented in this encounter Visit Diagnoses Diagnosis Frequency of micturition Urinary frequency Anemia, unspecified documented in this encounter Care Teams Geoscientist Relationship Specialty Start Date End Date Grayson Berrios DO [address] [place] [phone] PCP - General 08/22/15 documented as of this encounter
--- OUTSIDE RECORDS SUMMARY | 2024-09-05 14:39 | XMS_ITS | Encounter Summary ---
Author Organization [facility] Address [address] [place] [address] Care Team Providers Care Dishroom Attendant Name Role Phone Yash Grayson Primary Care Provider [phone] Encounter Details Date Type Department Care Team [...] Info) Description 09/12/2024 8:30 AM EDT Appointment [facility] Infusion Center 271 [facility] 2nd [place] [address] 09/14/2024 7:15 AM EDT Clinical Support Gastroenterology - [address] [place] [address] 11/03/2024 10:15 AM EDT Office Visit [facility] Hematology Oncology [address] [place] [address] Johny Bennett MD [address] [place] [address] 11/17/2024 10:00 AM EDT Office Visit Pulmonolgy - [place] 175 [facility] 200 [place] [phone] Jessica Neal MD 175 [facility] 200 [place] [address] documented as of this encounter Visit Diagnoses Diagnosis Chronic kidney disease, stage 3a (CMS/HCC) documented in this encounter Care Teams Dishroom Attendant Relationship Specialty Start Date End Date Grayson Berrios DO [address] [place] [phone] PCP - General 08/22/15 documented as of this encounter
--- OUTSIDE RECORDS SUMMARY | 2024-09-05 14:39 | XMS_ITS | Clinical Summary ---
Author Organization [facility] Address 100 [facility] [address] [place] [address] Phone Care Team Providers Care Pipe Covering Molder Name Role Phone Grayson Berrios DO Primary Care Provider [phone] Allergies No known active allergies Medications albuterol [...] or PCV20) 03/13/2018 02/16/2015, 03/13/2013 Influenza Vaccine (Season Ended) 2025 Hepatitis B Vaccine Aged Out No longe r eligible based on patient's age to complete this topic Insurance Care Teams Pipe Covering Molder Relationship Specialty Start Date End Date Grayson Berrios DO [address] [place] [address] PCP - General 06/11/20
--- OUTSIDE RECORDS SUMMARY | 2024-09-05 14:40 | XMS_ITS ---
Author Organization [facility] Address [address] [place] [address] Phone Care Team Providers Care Saloon Keeper Name Role Phone RaquelGrayson hamm Primary Care Provider [phone] Active Problems Problem Noted Date Diagnosed Date Drug therapy 09/05/2024 Gastrointestinal hemorrhage, unspecified gastrointestinal hemorrhage type 08/24/2024 CHF (congestive heart failure) 08/24/2024 CAD (coronary artery disease) 08/24/2024 Liver disease 08/24/2024 Chronic obstructive pulmonary disease 08/24/2024 Chronic renal impairment, stage 3 (moderate) Dysrhythmias 08/24/2024 BRBPR (bright red blood per rectum) 07/29/2024 CRF (chronic renal failure) 06/16/2024 Iron deficiency 05/27/2024 Anemia, unspecified type 05/24/2024 Myelodysplastic syndrome 04/06/2024 Current Oncology Plans FERUMOXYTOL ( FERAHEME ) 510 mg IVPB* Plan Start Date:08/09/2024 Plan Provider:Johny Bennett MD Linked Problems Myelodysplastic syndrome (CM S/HCC)Anemia, unspecified typeIron deficiency Treatment Medications No medications scheduled. OUTPATIENT TRANSFUSION (PRN)* Plan Start Date:04/06/2024 Plan Provider:Johny Bennett MD Linked Problems Myelodysplastic syndrome (CM S/HCC) Treatment Medications No medications scheduled. Other Current Plans EPOETIN [place] - ORIGINATOR OR BIOSIMILAR - ONCOLOGY ( SUBCUTANEOUS INJECTION )* Plan Start Date:06/17/2024 Plan Provider:Johny Bennett MD Linked Problems Chronic renal failure, stage 3 (moderate), unspecified whether stage 3a or 3b CKD (CMS/HCC)Anemia, unspecified typeDrug therapy Treatment Medications No medications scheduled. Past Plans No past plan information found. Radiation Treatments * No radiation treatments are documented for this patient in [facility]. Treatments may have been administered in another system.
--- OUTSIDE RECORDS SUMMARY | 2024-09-05 14:40 | XMS_ITS | Clinical Summary ---
Author Organization [facility] Address [address] [place] [address] Care Team Providers Care Washer Machine Name Role Phone Grayson Berrios DO Primary Care Provider Allergies No known active allergies Medications Medication [...] age to complete this topic Care Teams Washer Machine Relationship Specialty Start Date End Date Grayson Berrios DO [address] [place] [address] PCP - General Internal Medicine 12/26/22
--- OUTSIDE RECORDS SUMMARY | 2024-09-05 14:40 | XMS_ITS | Clinical Summary ---
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 Active ascorbic acid (VITAMIN C) 500 mg tablet Take 1 tablet (500 mg total) by mouth 1 (one) time each day. Active ezetimibe (ZETIA) 10 mg tablet Take 1 tablet (10 mg total) by mouth 1 (one) time each day. 11/04/19 23 Active pravastatin (PRAVACHOL) 80 mg tablet Take 1 tablet (80 mg total) by mouth at bedtime. 12/28/19 23 Active cyanocobalamin (VITAMIN B-12) 1,000 mcg tablet Take 1 tablet (1,000 mcg total) by mouth 1 (one) time each day. Active omeprazole (PriLOSEC) [address] capsule Take 1 capsule (40 mg total) by mouth 1 (one) time each day. 05/04/20 24 Active Breo Ellipta 200-25 mcg/dose inhaler Inhale 1 puff by mouth 1 (one) time each day. 03/28/20 24 Active fluticasone furoate-vilante roL (Breo Ellipta) 200-25 mcg/dose inhalerIndicati ons:Chronic obstructive pulmonary disease, unspecified COPD type (CMS/HCC) Inhale 1 puff by mouth 1 (one) time each day. 3 each 3 07/15/19 25 026 Active Incruse Ellipta 62.5 mcg/actuation inhalationIndic ations:Chronic obstructive pulmonary disease, unspecified COPD type (CMS/HCC) Inhale 1 puff by mouth 1 (one) time each day. 3 each 3 07/15/19 25 Active potassium chloride 20 mEq tablet extended release Take 20 mEq by mouth 3 (three) times a day. 07/07/19 25 Active ferrous sulfate 325 mg (65 mg elemental iron) tablet Take 1 tablet (325 mg total) by mouth 2 (two) times a day. 60 each 08/31/19 25 025 Active torsemide (DEMADEX) 20 mg tablet Take 1 tablet (20 mg total) by mouth 1 (one) time each day. 08/31/19 25 Active digoxin (LANOXIN) 125 mcg (0.125 mg) tablet Take 1 tablet (0.125 mg total) by mouth every other day. 12/09/19 23 025 Discontinued(St op Taking at Discharge) ferrous sulfate 325 mg (65 mg elemental iron) tablet Take 1 tablet (325 mg total) by mouth every morning with breakfast. 025 Discontinued metFORMIN (GLUCOPHAGE) 500 mg tablet Take 1 tablet (500 mg total) by mouth 2 (two) times a day. 025 Discontinued(St op Taking at Discharge) torsemide (DEMADEX) 20 mg tablet Take 2 tablets (40 mg total) by mouth 1 (one) time each day. 11/25/19 23 025 Discontinued metOLazone (ZAROXOLYN) 2.5 mg tablet Take 1 tablet (2.5 mg total) by mouth 1 (one) time each day. 12/01/19 24 025 Discontinued(St op Taking at Discharge) acetaZOLAMIDE (DIAMOX) 125 mg tablet Take 1 tablet (125 mg total) by mouth 2 times daily. 04/16/20 025 Discontinued(St op Taking at Discharge) aspirin 81 mg EC tablet Take 1 tablet (81 mg total) by mouth 1 (one) time each day. 04/14/20 025 Discontinued(St op Taking at Discharge) clopidogreL (PLAVIX) 75 mg tablet Take 1 tablet (75 mg total) by mouth daily. 08/03/19 025 Discontinued(St op Taking at Discharge) Active Problems Problem Noted Date Diagnosed Date [...] Encounters Date Type Department Care Team Description 09/05/2024 8:12 AM EDT Hospital Encounter [facility] [address] [phone] Johny Bennett MD Chronic renal failure, stage 3 (moderate), unspecified whether stage 3a or 3b CKD (CMS/HCC) (Primary Dx); Anemia, unspecified type 08/29/2024 Telephone Gastroenterology - 299 [facility] [address] [phone] Geena Connor MA 08/24/2024 3:30 PM EDT Anesthesia Event [facility] Endoscopy [address] [place] [phone] Warren Polanco MD Chang, Ling, CRNA 08/23/2024 9:04 PM EDT - 08/30/2024 3:06 PM EDT Hospital Encounter [facility] Intermediate Care Unit B [address] [place] [phone] Jass Martino MD Rasul, Yar M, MD Bell, Alistair A, MD Nasser, Nada S, MD Gastrointestinal hemorrhage, unspecified gastrointestinal hemorrhage type (Primary Dx); BRBPR (bright red blood per rectum); GAVE (gastric antral vascular ectasia); Myelodysplastic syndrome (CMS/HCC) Discharge Disposition: [place] [facility] 08/22/2024 8:21 AM EDT - 08/22/2024 11:59 PM EDT Hospital Encounter [facility] [address] [place] [phone] Johny Bennett MD Chronic renal failure, stage 3 (moderate), unspecified whether stage 3a or 3b CKD (CMS/HCC) (Primary Dx); Anemia, unspecified type Discharge Disposition: Home or Self Care 08/16/2024 8:08 AM EDT - 08/16/2024 11:59 PM EDT Hospital Encounter [facility] [address] [place] [phone] Johny Bennett MD Myelodysplastic syndrome (CMS/HCC) (Primary Dx); Anemia, unspecified type; Iron deficiency Discharge Disposition: Home or Self Care 08/15/2024 8:07 AM EDT - 08/15/2024 11:59 PM EDT Hospital Encounter [facility] [address] [place] [phone] Johny Bennett MD Chronic renal failure, stage 3 (moderate), unspecified whether stage 3a or 3b CKD (CMS/HCC) (Primary Dx); Anemia, unspecified type; Anemia, unspecified Discharge Disposition: Home or Self Care 08/11/2024 11:00 AM EDT - 08/11/2024 11:59 PM EDT Hospital Encounter [facility] CT Scan [address] [place] [phone] Lung nodules Discharge Disposition: Home or Self Care 08/09/2024 9:23 AM EDT - 08/09/2024 11:59 PM EDT Hospital Encounter [facility] [address] [place] [phone] Johny Bennett MD Myelodysplastic syndrome (CMS/HCC) (Primary Dx); Anemia, unspecified type; Iron deficiency Discharge Disposition: Home or Self Care 08/08/2024 12:58 PM EDT - 08/08/2024 11:59 PM EDT Hospital Encounter [facility] [address] [place] [phone] Johny Bennett MD Anemia, unspecified type (Primary Dx); Chronic renal failure, stage 3 (moderate), unspecified whether stage 3a or 3b CKD (CMS/HCC); Anemia, unspecified Discharge Disposition: Home or Self Care 08/02/2024 9:47 AM EST Anesthesia Event [facility] Endoscopy [address] [place] [phone] Warren Polanco MD 07/29/2024 9:03 AM EST - 08/02/2024 12:18 PM EST Hospital Encounter [facility] Medical Surgical Unit [address] [place] [phone] Hector Hilario MD Flores, Carlos M, MD Zipagan, James T, MD Alam, Aroosa, MD Acute GI bleeding (Primary Dx); BRBPR (bright red blood per rectum); Acute on chronic anemia; Hypokalemia; Myelodysplastic syndrome (CMS/HCC); Chronic renal failure, stage 3a (CMS/HCC) Discharge Disposition: [place] [facility] 07/28/2024 10:15 AM EST Office Visit [facility] Hematology Oncology [address] [place] [phone] Johny Bennett MD Myelodysplastic syndrome (CMS/HCC) (Primary Dx); Iron deficiency 07/26/2024 9:30 AM EST - 07/26/2024 11:59 PM EST Hospital Encounter [facility] [address] [place] [phone] Johny Bennett MD Myelodysplastic syndrome (CMS/HCC) (Primary Dx) Discharge Disposition: Home or Self Care 07/25/2024 9:30 AM EST - 07/25/2024 11:59 PM EST Hospital Encounter [facility] [address] [place] [phone] Johny Bennett MD Chronic renal failure, stage 3 (moderate), unspecified whether stage 3a or 3b CKD (CMS/HCC) (Primary Dx); Anemia, unspecified type Discharge Disposition: Home or Self Care 07/18/2024 9:30 AM EST - 07/18/2024 11:59 PM EST Hospital Encounter [address] [phone] Johny Bennett MD Chronic renal failure, stage 3 (moderate), unspecified whether stage 3a or 3b CKD (CMS/HCC) (Primary Dx); Anemia, unspecified type Discharge Disposition: Home or Self Care 07/15/2024 11:45 AM EST Office Visit Pulmonolgy - [place] [address] [phone] Jessica Neal MD Lung nodules (Primary Dx); Adrenal nodule (CMS/HCC); Chronic obstructive pulmonary disease, unspecified COPD type (CMS/HCC); Bronchiectasis without complication (CMS/HCC); Ex-smoker; CHRISTINE (obstructive sleep apnea) 07/12/2024 9:26 AM EST - 07/12/2024 11:59 PM EST Hospital Encounter [address] [phone] Johny Bennett MD Myelodysplastic syndrome (CMS/HCC) (Primary Dx) Discharge Disposition: Home or Self Care 07/11/2024 9:30 AM EST - 07/11/2024 11:59 PM EST Hospital Encounter [address] [phone] Johny Bennett MD Chronic renal failure, stage 3 (moderate), unspecified whether stage 3a or 3b CKD (CMS/HCC) (Primary Dx); Anemia, unspecified type Discharge Disposition: Home or Self Care 07/05/2024 1:11 PM EST - 07/05/2024 11:59 PM EST Hospital Encounter [facility] [address] [place] [phone] Johny Bennett MD Myelodysplastic syndrome (CMS/HCC) (Primary Dx) Discharge Disposition: Home or Self Care 07/04/2024 11:00 AM EST - 07/04/2024 11:59 PM EST Hospital Encounter [facility] [address] [place] [phone] Chronic renal failure, stage 3 (moderate), unspecified whether stage 3a or 3b CKD (CMS/HCC) (Primary Dx); Anemia, unspecified type Discharge Disposition: Home or Self Care 06/27/2024 9:27 AM EST - 06/27/2024 11:59 PM EST Hospital Encounter [facility] [address] [place] [phone] Johny Bennett MD Myelodysplastic syndrome ([facility]/HCC) (Primary Dx) Discharge Disposition: Home or Self Care 06/27/2024 [facility] Infusion [facility] [address] [place] [phone] Johny Bennett MD 06/24/2024 12:57 PM EST - 06/24/2024 11:59 PM EST Hospital Encounter [facility] [address] [place] [phone] Johny Bennett MD Anemia, unspecified type (Primary Dx); Chronic renal failure, stage 3 (moderate), unspecified whether stage 3a or 3b CKD (CMS/HCC) Discharge Disposition: Home or Self Care 06/17/2024 12:56 PM EST - 06/17/2024 11:59 PM EST Hospital Encounter [facility] [address] [place] [phone] Johny Bennett MD Chronic renal failure, stage 3 (moderate), unspecified whether stage 3a or 3b CKD (CMS/HCC) (Primary Dx); Anemia, unspecified type Discharge Disposition: Home or Self Care 06/16/2024 10:30 AM EST - 06/16/2024 11:59 PM EST Hospital Encounter [facility] [address] [place] [phone] Johny Bennett MD Myelodysplastic syndrome ([facility]/HCC) (Primary Dx); Iron deficiency; Anemia, unspecified type; Chronic renal insufficiency, stage 4 (severe) (CMS/HCC) Discharge Disposition: Home or Self Care 06/16/2024 10:15 AM EST Office Visit [facility] Hematology Oncology [address] [place] [phone] Johny Bennett MD Myelodysplastic syndrome ([facility]/HCC) (Primary Dx); Chronic renal insufficiency, stage 4 (severe) ([facility]/HCC) 06/15/2024 12:45 PM EST Lab Draw Station - [address] [phone] Iron deficiency anemia, unspecified (Primary Dx) from Last 3 Months Immunizations Name Administration Dates Next Due Pfizer (ages 12 & older) ANALILIA S-CoV-2 COVID-19, mRNA, LNP-S, javier-sucrose, preservative free 01/24/2022 Pfizer SARS-CoV-2 COVID-19, mRNA, LNP-S, preservative free 03/12/2021,08/24/2020,08/03/2020 Surgical History Surgery Date Site/Laterality Comments NEPHRECTOMY Right PROCEDURE:NEPHRECTOMY WATCHMAN IMPLANT TOTAL HIP ARTHROPLASTY Right TRANSURETHRAL RESECTION OF PROSTATE BONE MARROW BIOPSY Medical History Medical History Date Comments History of kidney cancer DX:Hist ory of kidney cancer CHF (congestive heart failur e) ([facility]/HCC) DX:CHF (congestive heart andreea lure) (HCC) Diabetes mellitus (CMS/HCC) DX:D iabetes mellitus (HCC) COPD (chronic obstructive pu lmonary disease) ([facility]/HCC) DX:COPD (chronic obstructive pulmonary disease) (HCC) Hypertension DX:Hypertension BPH (benign prostatic hyperplasia) DX:BPH (benign prostatic hyperplasia) Essential hypertension, benign 05/05/2005 D X:Essential hypertension, benign Alcohol abuse, unspecified 05/05/2005 DX:Al cohol abuse, unspecified Arteritis, unspecified (CMS/HCC) DX:Arteritis, unspecified (HCC) Congestive heart failure, unspecified 08/10/2006 DX:Congestive heart failure, unspecified; COMMENT: EF 25-30% echo 07/08 Pulmonary hypertension (CMS/HCC) DX:Pulmonary hypertension (HCC) CAD (coronary artery disease) Chronic hypoxic respiratory failure on 2L O2 Myelodysplastic syndrome (CMS/HCC) Atrial fibrillation (CMS/HCC) Hyperlipidemia Renal cancer (CMS/HCC) CKD (chronic kidney disease) GI bleed AVM (arteriovenous malformation) Liver cirrhosis (CMS/HCC) Family History Medical History Relation Name Comments Hypertension Mother Other: Other Mother PVD Relation Name Status Comments Mother Social History Tobacco Use Types Packs/Day Years Used Date Smoking Tobacco: Former Cigarettes Q uit: 12/31/2010 Passive Smoke Exposure: Past Smokeless Tobacco: Never Tobacco Cessation:Counseling Given: Not Answered Comments:Quit 2011 Alcohol Use Standard Drinks/Week Comments [...] Orientation Straight 06/16/2024 10 :59 AM EST Obstetrics History Last Filed Vital Signs Vital Sign Reading Time Taken Comments Blood Pressure 116/54 09/05/2024 8:23 AM EDT Pulse 63 09/05/2024 8:23 AM EDT Temperature 36.7 ??C (98 ??F) 09/05/2024 8:23 AM EDT Respiratory Rate 18 08/30/2024 1:07 PM EDT Oxygen Saturation 100% 09/05/2024 8:23 AM EDT Inhaled Oxygen Concentration - - Weight 74.3 kg (163 lb 12.8 oz) 08/30/2024 5:00 AM EDT Height 172.7 cm (5' 8 ) 08/23/2024 9:47 PM EDT Body Mass Index 24.91 08/23/2024 9:47 PM EDT Plan of Treatment Upcoming Encounters Date Type Department Care Team (Late st Contact Info) Description 09/12/2024 8:30 AM EDT Appointment [facility] [address] [facility] 2nd [place] [phone] 09/14/2024 7:15 AM EDT Clinical Support Gastroenterology - 299 [facility] [address] [facility] [address] [place] [phone] 11/03/2024 10:15 AM EDT Office Visit [facility] Hematology Oncology [address] [place] [phone] Johny Bennett MD [address] [place] [address] 11/17/2024 10:00 AM EDT Office Visit Pulmonolgy - [place] 175 [facility] [address] [place] [phone] Jessica Neal MD 175 [facility] [address] [place] [address] Health Maintenance Due Date Last Done Comments Diabetes: Annual Foot Exam 1959 Diabetes: Annual Retina Eye Exam 1959 DTaP,Tdap,and Td Vaccines (1 - Tdap) 1968 Hepatitis A Vaccines (1 of 2 - Risk 2-dose series) 1968 Pneumococcal Vaccine: 50+ Years (3 of 3 - PPSV23, PCV20 or PCV21) 03/13/2018 02/16/2015, 03/13/2013 Abdominal Aortic Aneurysm (AAA) Screen 05/15/2022 Cholesterol Screening (Lipid Panel) 05/15/2022 Depression Screening 05/15/2022 Hepatitis C Screening 05/15/2022 Medicare Annual Wellness Visit 05/15/2022 Social Influencers of Health Screening 05/15/2022 Diabetes: Annual Urine Albumin-Creatinine Ratio (uACR) 03/10/2024 Diabetes: Blood Sugar Control Test (HGBA1C) 03/10/2024 Colorectal Cancer Screening: Colonoscopy 11/09/2024 11/09/2014 Diabetes: Annual GFR (Glomerular Filtration Rate) 08/30/2025 08/30/2024, 08/29/2024, 08/28/2024, Additional history exists Falls Risk Assessment 08/30/2025 08/30/2024 Hypertension/CHF/CAD Annual BMP Blood Test 08/30/2025 08/30/2024, 08/29/2024, 08/28/2024, Additional history exists RSV Immunization Adult Patients Completed 05/15/2023 Zoster Vaccines Completed 08/15/2023, 05/15/2023 [...] patient's age to complete this topic Meningococcal B Vaccine Aged Out No l onger eligible based on patient's age to complete this topic RSV Immunization Patients Under 20 months Aged Out No longer eligible based on patient's age to complete this topic Varicella Vaccines Aged Out No longer eligible based on patient's age to complete this topic Procedures Procedure Name Priority Date/Time Associated Diagnosis Comments CBC WITH AUTO DIFFERENTIAL STAT 09/05/2024 7:51 AM EDT Chronic renal failure, stage 3 (moderate), unspecified whether stage 3a or 3b CKD (CMS/HCC) Anemia, unspecified type TYPE AND SCREEN STAT 09/05/2024 7:51 AM EDT Anemia, unspecified CBC AND DIFFERENTIAL STAT 09/05/2024 7:51 AM EDT Chronic renal failure, stage 3 (moderate), unspecified whether stage 3a or 3b CKD (CMS/HCC) Anemia, unspecified type FERRITIN Routine 09/05/2024 7:51 AM EDT Chronic renal failure, stage 3 (moderate), unspecified whether stage 3a or 3b CKD ([facility]) Anemia, unspecified type ECG ANNOTATED 08/31/2024 ECG OUTSIDE 08/31/2024 HEMOGLOBIN AND HEMATOCRIT STAT 08/30/2024 12:37 PM EDT POCT GLUCOSE BLOOD Routine 08/30/2024 11 :50 AM EDT POCT GLUCOSE BLOOD Routine 08/30/2024 7: 26 AM EDT CBC WITH AUTO DIFFERENTIAL Timed 08/30/2024 5:21 AM EDT CBC AND DIFFERENTIAL Timed 08/30/2024 5:21 AM EDT BASIC METABOLIC PANEL Routine 08/30/2024 5:21 AM EDT POCT GLUCOSE BLOOD Routine 08/29/2024 7: 35 PM EDT POCT GLUCOSE BLOOD Routine 08/29/2024 3: 35 PM EDT ECG 12-LEAD Routine 08/29/2024 2:13 PM EDT POCT GLUCOSE BLOOD Routine 08/29/2024 12 :01 PM EDT OXYGEN THERAPY, ADULT Routine 08/29/2024 8:02 AM EDT POCT GLUCOSE BLOOD Routine 08/29/2024 7: 38 AM EDT DIGOXIN LEVEL Add-On 08/29/2024 5:26 AM EDT CBC WITH AUTO DIFFERENTIAL Timed 08/29/2024 5:26 AM EDT MAGNESIUM Routine 08/29/2024 5:26 AM EDT CBC AND DIFFERENTIAL Timed 08/29/2024 5:26 AM EDT BASIC METABOLIC PANEL Routine 08/29/2024 5:26 AM EDT OXYGEN THERAPY, ADULT Routine 08/28/2024 8:01 PM EDT POCT GLUCOSE BLOOD Routine 08/28/2024 7: 21 PM EDT POCT GLUCOSE BLOOD Routine 08/28/2024 3: 00 PM EDT POCT GLUCOSE BLOOD Routine 08/28/2024 10 :56 AM EDT OXYGEN THERAPY, ADULT Routine 08/28/2024 8:01 AM EDT POCT GLUCOSE BLOOD Routine 08/28/2024 7: 26 AM EDT CBC WITH AUTO DIFFERENTIAL Timed 08/28/2024 5:19 AM EDT CBC AND DIFFERENTIAL Timed 08/28/2024 5:19 AM EDT BASIC METABOLIC PANEL Routine 08/28/2024 5:19 AM EDT OXYGEN THERAPY, ADULT Routine 08/27/2024 8:01 PM EDT POCT GLUCOSE BLOOD Routine 08/27/2024 7: 18 PM EDT POCT GLUCOSE BLOOD Routine 08/27/2024 2: 58 PM EDT OXYGEN THERAPY, ADULT Routine 08/27/2024 2:00 PM EDT OXYGEN THERAPY, ADULT Routine 08/27/2024 2:00 PM EDT OXYGEN THERAPY, ADULT Routine 08/27/2024 2:00 PM EDT POCT GLUCOSE BLOOD Routine 08/27/2024 10 :48 AM EDT POCT GLUCOSE BLOOD Routine 08/27/2024 7: 07 AM EDT CBC WITH AUTO DIFFERENTIAL Timed 08/27/2024 5:39 AM EDT CBC AND DIFFERENTIAL Timed 08/27/2024 5:39 AM EDT BASIC METABOLIC PANEL Routine 08/27/2024 5:39 AM EDT HEMOGLOBIN AND HEMATOCRIT Routine 08/26/2024 10:[address] ANGIO ABDOMEN PELVIS WO AND/OR W CONTRAST STAT 08/26/2024 9:00 PM EDT BRBPR (bright red blood per rectum) POCT GLUCOSE BLOOD Routine 08/26/2024 7: 29 PM EDT POCT GLUCOSE BLOOD Routine 08/26/2024 4: 20 PM EDT TRANSFUSE RED BLOOD CELLS Routine 08/26/2024 1:32 PM EDT POCT GLUCOSE BLOOD Routine 08/26/2024 11 :24 AM EDT TRANSFUSE RED BLOOD CELLS Routine 08/26/2024 10:08 AM EDT PREPARE RBC Routine 08/26/2024 9:08 AM EDT POCT GLUCOSE BLOOD Routine 08/26/2024 7: 43 AM EDT CBC WITH AUTO DIFFERENTIAL Timed 08/26/2024 5:22 AM EDT CBC AND DIFFERENTIAL Timed 08/26/2024 5:22 AM EDT BASIC METABOLIC PANEL Routine 08/26/2024 5:22 AM EDT POCT GLUCOSE BLOOD Routine 08/25/2024 7: 54 PM EDT POCT GLUCOSE BLOOD Routine 08/25/2024 4: 23 PM EDT POCT GLUCOSE BLOOD Routine 08/25/2024 12 :53 PM EDT ECG 12-LEAD STAT 08/25/2024 12:38 PM EDT TRANSFUSE RED BLOOD CELLS Routine 08/25/2024 9:40 AM EDT POCT GLUCOSE BLOOD Routine 08/25/2024 8: 13 AM EDT PREPARE RBC Routine 08/25/2024 7:05 AM EDT CBC WITH AUTO DIFFERENTIAL Timed 08/25/2024 5:28 AM EDT CBC AND DIFFERENTIAL Timed 08/25/2024 5:28 AM EDT MAGNESIUM Routine 08/25/2024 5:28 AM EDT BASIC METABOLIC PANEL Routine 08/25/2024 5:28 AM EDT POCT GLUCOSE BLOOD Routine 08/25/2024 3: 20 AM EDT HEMOGLOBIN AND HEMATOCRIT Routine 08/24/2024 8:55 PM EDT POCT GLUCOSE BLOOD Routine 08/24/2024 8: 47 PM EDT EGD Routine 08/24/2024 3:57 PM EDT GAVE (gastric antral vascular ectasia) TH AN ENDOTRACHEAL(NO CHARGE) Routine 08/24/2024 3:39 PM EDT POCT GLUCOSE BLOOD Routine 08/24/2024 1: 37 PM EDT POCT GLUCOSE BLOOD Routine 08/24/2024 1: 28 PM EDT TRANSFUSE RED BLOOD CELLS Routine 08/24/2024 11:59 AM EDT PREPARE RBC Routine 08/24/2024 10:31 AM EDT CBC WITH AUTO DIFFERENTIAL Timed 08/24/2024 8:53 AM EDT CBC AND DIFFERENTIAL Timed 08/24/2024 8:53 AM EDT SST - GOLD Routine 08/24/2024 8:49 AM EDT EXTRA TUBES Routine 08/24/2024 8:49 AM EDT MAGNESIUM Routine 08/24/2024 8:28 AM EDT BASIC METABOLIC PANEL Routine 08/24/2024 8:28 AM EDT HEMOGLOBIN AND HEMATOCRIT Timed 08/24/2024 8:28 AM EDT POCT GLUCOSE BLOOD Routine 08/24/2024 7: 55 AM EDT TRANSFUSE RED BLOOD CELLS STAT 08/24/2024 3:58 AM EDT POCT GLUCOSE BLOOD Routine 08/24/2024 1: 40 AM EDT TRANSFUSE RED BLOOD CELLS STAT 08/24/2024 12:28 AM EDT TROPONIN I HIGH SENSITIVITY STAT 08/23/2024 11:42 PM EDT PROTHROMBIN TIME WITH INR STAT 08/23/2024 10:05 PM EDT TROPONIN I HIGH SENSITIVITY STAT 08/23/2024 10:05 PM EDT B-TYPE NATRIURETIC PEPTIDE STAT 08/23/2024 10:05 PM EDT PREPARE RBC STAT 08/23/2024 10:02 PM EDT XR CHEST 1 VIEW STAT 08/23/2024 9:50 PM EDT ECG 12-LEAD STAT 08/23/2024 9:42 PM EDT TYPE AND SCREEN STAT 08/23/2024 9:24 PM EDT CBC WITH AUTO DIFFERENTIAL STAT 08/23/2024 9:21 PM EDT COMPREHENSIVE METABOLIC PANEL STAT 08/23/2024 9:21 PM EDT CBC AND DIFFERENTIAL STAT 08/23/2024 9:21 PM EDT TYPE AND SCREEN Routine 08/22/2024 8:14 AM EDT Chronic renal failure, stage 3 (moderate), unspecified whether stage 3a or 3b CKD (CMS/HCC) Anemia, unspecified type Anemia, unspecified CBC WITH AUTO DIFFERENTIAL STAT 08/22/2024 8:13 AM EDT Chronic renal failure, stage 3 (moderate), unspecified whether stage 3a or 3b CKD (CMS/HCC) Anemia, unspecified type CBC AND DIFFERENTIAL STAT 08/22/2024 8:13 AM EDT Chronic renal failure, stage 3 (moderate), unspecified whether stage 3a or 3b CKD (CMS/HCC) Anemia, unspecified type CBC WITH AUTO DIFFERENTIAL STAT 08/15/2024 8:28 AM EDT Chronic renal failure, stage 3 (moderate), unspecified whether stage 3a or 3b CKD (CMS/HCC) Anemia, unspecified type TYPE AND SCREEN STAT 08/15/2024 8:28 AM EDT Anemia, unspecified CBC AND DIFFERENTIAL STAT 08/15/2024 8:28 AM EDT Chronic renal failure, stage 3 (moderate), unspecified whether stage 3a or 3b CKD (CMS/HCC) Anemia, unspecified type CT CHEST WO CONTRAST Routine 08/11/2024 11:52 AM EDT Lung nodules CBC WITH AUTO DIFFERENTIAL STAT 08/08/2024 1:15 PM EDT Chronic renal failure, stage 3 (moderate), unspecified whether stage 3a or 3b CKD (CMS/HCC) Anemia, unspecified type TYPE AND SCREEN STAT 08/08/2024 1:15 PM EDT Anemia, unspecified CBC AND DIFFERENTIAL STAT 08/08/2024 1:15 PM EDT Chronic renal failure, stage 3 (moderate), unspecified whether stage 3a or 3b CKD (CMS/HCC) Anemia, unspecified type EGD Routine 08/02/2024 10:10 AM EST Acute GI bleeding OXYGEN THERAPY, ADULT Routine 08/01/2024 8:59 AM EST OXYGEN THERAPY, ADULT Routine 08/01/2024 8:59 AM EST SST - GOLD Routine 08/01/2024 6:50 AM EST EXTRA TUBES Routine 08/01/2024 6:50 AM EST HEMOGLOBIN AND HEMATOCRIT Routine 08/01/2024 6:50 AM EST CBC WITH AUTO DIFFERENTIAL Routine 07/31/2024 6:07 AM EST BASIC METABOLIC PANEL Routine 07/31/2024 6:07 AM EST CBC AND DIFFERENTIAL Routine 07/31/2024 6:07 AM EST CBC WITH AUTO DIFFERENTIAL Routine 07/30/2024 6:19 AM EST CBC AND DIFFERENTIAL Routine 07/30/2024 6:19 AM EST MAGNESIUM Routine 07/30/2024 6:19 AM EST BASIC METABOLIC PANEL Routine 07/30/2024 6:19 AM EST COMPLETE BLOOD COUNT Timed 07/30/2024 12:15 AM EST ECG OUTSIDE 07/30/2024 COMPLETE BLOOD COUNT Timed 07/29/2024 5:39 PM EST COMPLETE BLOOD COUNT Timed 07/29/2024 1:13 PM EST PROTHROMBIN TIME WITH INR STAT 07/29/2024 10:14 AM EST DIGOXIN LEVEL STAT 07/29/2024 10:14 AM EST CBC WITH AUTO DIFFERENTIAL STAT 07/29/2024 9:23 AM EST TYPE AND SCREEN STAT 07/29/2024 9:23 AM EST COMPREHENSIVE METABOLIC PANEL STAT 07/29/2024 9:23 AM EST CBC AND DIFFERENTIAL STAT 07/29/2024 9:23 AM EST CBC WITH AUTO DIFFERENTIAL Routine 07/27/2024 1:53 PM EST Anemia CKD (chronic kidney disease) CHF (congestive heart failure) (CMS/HCC) Liver cirrhosis (CMS/HCC) COMPREHENSIVE METABOLIC PANEL Routine 07/27/2024 1:53 PM EST Anemia CKD (chronic kidney disease) CHF (congestive heart failure) (CMS/HCC) Liver cirrhosis (CMS/HCC) CBC AND DIFFERENTIAL Routine 07/27/2024 1:53 PM EST Anemia CKD (chronic kidney disease) CHF (congestive heart failure) (CMS/HCC) Liver cirrhosis (CMS/HCC) TRANSFUSE RED BLOOD CELLS Routine 07/26/2024 1:03 PM EST Myelodysplastic syndrome (CMS/HCC) TRANSFUSE RED BLOOD CELLS Routine 07/26/2024 10:24 AM EST Myelodysplastic syndrome (CMS/HCC) PREPARE RBC Routine 07/26/2024 9:51 AM EST Myelodysplastic syndrome (CMS/HCC) CBC WITH AUTO DIFFERENTIAL STAT 07/25/2024 9:33 AM EST Chronic renal failure, stage 3 (moderate), unspecified whether stage 3a or 3b CKD (CMS/HCC) Anemia, unspecified type TYPE AND SCREEN STAT 07/25/2024 9:33 AM EST Anemia, unspecified CBC AND DIFFERENTIAL STAT 07/25/2024 9:33 AM EST Chronic renal failure, stage 3 (moderate), unspecified whether stage 3a or 3b CKD (CMS/HCC) Anemia, unspecified type CBC WITH AUTO DIFFERENTIAL STAT 07/18/2024 9:43 AM EST Chronic renal failure, stage 3 (moderate), unspecified whether stage 3a or 3b CKD (CMS/HCC) Anemia, unspecified type TYPE AND SCREEN STAT 07/18/2024 9:43 AM EST Anemia, unspecified CBC AND DIFFERENTIAL STAT 07/18/2024 9:43 AM EST Chronic renal failure, stage 3 (moderate), unspecified whether stage 3a or 3b CKD (CMS/HCC) Anemia, unspecified type TRANSFUSE RED BLOOD CELLS Routine 07/12/2024 10:09 AM EST Myelodysplastic syndrome (CMS/HCC) PREPARE RBC Routine 07/12/2024 8:32 AM EST Myelodysplastic syndrome (CMS/HCC) TYPE AND SCREEN Routine 07/11/2024 9:26 AM EST Chronic renal failure, stage 3 (moderate), unspecified whether stage 3a or 3b CKD (CMS/HCC) Anemia, unspecified CBC WITH AUTO DIFFERENTIAL STAT 07/11/2024 9:26 AM EST Chronic renal failure, stage 3 (moderate), unspecified whether stage 3a or 3b CKD (CMS/HCC) Anemia, unspecified type CBC AND DIFFERENTIAL STAT 07/11/2024 9:26 AM EST Chronic renal failure, stage 3 (moderate), unspecified whether stage 3a or 3b CKD (CMS/HCC) Anemia, unspecified type PREPARE RBC Routine 07/05/2024 10:01 AM EST Myelodysplastic syndrome (CMS/HCC) DIGOXIN LEVEL Routine 07/04/2024 11:15 AM EST Chronic atrial fibrillation (CMS/HCC) CBC WITH AUTO DIFFERENTIAL Routine 07/04/2024 11:13 AM EST Chronic renal failure, stage 3 (moderate), unspecified whether stage 3a or 3b CKD (CMS/HCC) Anemia, unspecified type TYPE AND SCREEN Routine 07/04/2024 11:13 AM EST Anemia, unspecified ERYTHROPOIETIN Routine 07/04/2024 11:13 AM EST Chronic renal failure, stage 3 (moderate), unspecified whether stage 3a or 3b CKD (CMS/HCC) Anemia, unspecified type VITAMIN B12 Routine 07/04/2024 11:13 AM EST Chronic renal failure, stage 3 (moderate), unspecified whether stage 3a or 3b CKD (CMS/HCC) Anemia, unspecified type FOLATE Routine 07/04/2024 11:13 AM EST Chronic renal failure, stage 3 (moderate), unspecified whether stage 3a or 3b CKD (CMS/HCC) Anemia, unspecified type TRANSFERRIN Routine 07/04/2024 11:13 AM EST Chronic renal failure, stage 3 (moderate), unspecified whether stage 3a or 3b CKD (CMS/HCC) Anemia, unspecified type FERRITIN Routine 07/04/2024 11:13 AM EST Chronic renal failure, stage 3 (moderate), unspecified whether stage 3a or 3b CKD (CMS/HCC) Anemia, unspecified type IRON Routine 07/04/2024 11:13 AM EST Chronic renal failure, stage 3 (moderate), unspecified whether stage 3a or 3b CKD (CMS/HCC) Anemia, unspecified type CREATININE, SERUM Routine 07/04/2024 11: 13 AM EST Chronic renal failure, stage 3 (moderate), unspecified whether stage 3a or 3b CKD (CMS/HCC) Anemia, unspecified type CBC AND DIFFERENTIAL Routine 07/04/2024 11:13 AM EST Chronic renal failure, stage 3 (moderate), unspecified whether stage 3a or 3b CKD (CMS/HCC) Anemia, unspecified type PREPARE RBC Routine 06/27/2024 9:13 AM EST [...] TEST 06/07/2024 ..MISCELLANEOUS REFERENCE LAB TEST 06/07/2024 EXTERNAL COLONOSCOPY REPORT Routine 11/09/2014 1:00 PM EDT from Last 3 Months or Most Recently Relevant to Health Maintenance Results * (ABNORMAL) CBC auto differential (09/05/2024 7:51 AM EDT) Only the most recent of22 resultswithin the time period is included. WBC 5.4 4.8 - 10.8 K/mcL LAB HEMETOLOGY METHOD 09/05/2024 8:12 AM [facility] RBC 2.90(L) 4.50 - 5.50 M/mcL LAB HEMETOLOGY METHOD 09/05/2024 8:12 AM [facility] Hemoglobin 8.8(L) 13.5 - 17.5 g/dL LAB HEMETOLOGY METHOD 09/05/2024 8:12 AM [facility] Hematocrit 29.0(L) 42.0 - 54.0 % LAB HEMETOLOGY METHOD 09/05/2024 8:12 AM [facility] MCV 100.3(H) 79.0 - 98.0 FL LAB HEMETOLOGY METHOD 09/05/2024 8:12 AM [facility] MCH 30.4 27.0 - 32.0 pcg LAB HEMETOLOGY METHOD 09/05/2024 8:12 AM [facility] MCHC 30.3(L) 32.0 - 37.0 g/dL LAB HEMETOLOGY METHOD 09/05/2024 8:12 AM [facility] RDW 20.8(H) 11.0 - 15.0 % LAB HEMETOLOGY METHOD 09/05/2024 8:12 AM [facility] Platelets 251 130 - 400 K/mcL LAB HEMETOLOGY METHOD 09/05/2024 8:12 AM [facility] MPV 10.0 7.0 - 11.0 FL LAB HEMETOLOGY METHOD 09/05/2024 8:12 AM [facility] NRBC 0.0 <1.0 % LAB HEMETOLOGY METHOD 09/05/2024 8:12 AM [facility] NRBC Absolute 0.00 <0.10 K/mcL LAB HEMETOLOGY METHOD 09/05/2024 8:12 AM [facility] Neutrophils Relative 69.4 % LAB HEMETOLOGY METHOD 09/05/2024 8:12 AM [facility] Lymphocytes Relative 15.3 % LAB HEMETOLOGY METHOD 09/05/2024 8:12 AM [facility] Monocytes Relative 10.6 % LAB HEMETOLOGY METHOD 09/05/2024 8:12 AM [facility] Eosinophils Relative 3.7 % LAB HEMETOLOGY METHOD 09/05/2024 8:12 AM [facility] Basophils Relative 0.6 % LAB HEMETOLOGY METHOD 09/05/2024 8:12 AM [facility] Immature Granulocytes Relative 0.4 % LAB HEMETOLOGY METHOD 09/05/2024 8:12 AM [facility] Neutrophils Absolute 3.72 1.50 - 7.00 K/mcL LAB HEMETOLOGY METHOD 09/05/2024 8:12 AM [facility] Lymphocytes Absolute 0.82(L) 1.00 - 5.00 K/mcL LAB HEMETOLOGY METHOD 09/05/2024 8:12 AM [facility] Monocytes Absolute 0.57 0.20 - 1.00 K/mcL LAB HEMETOLOGY METHOD 09/05/2024 8:12 AM EDT [facility] Eosinophils Absolute 0.20 0.00 - 0.50 K/mcL LAB HEMETOLOGY METHOD 09/05/2024 8:12 AM EDT [facility] Basophils Absolute 0.03 0.00 - 0.20 K/mcL LAB HEMETOLOGY METHOD 09/05/2024 8:12 AM EDT [facility] Immature Granulocytes Absolute 0.02 0.00 - 0.03 K/[facility] LAB HEMETOLOGY METHOD 09/05/2024 8:12 AM EDT [facility] Blood Venous blood specimen / Unknown Venipuncture / Unknown 09/05/2024 7:51 AM EDT 09/05/2024 8:08 AM EDT Johny Bennett MD LAB BLOOD ORDERABLES Final R esult [facility] [address] [place] [address], [place] [phone] * Type and screen (09/05/2024 7:51 AM EDT) Only the most recent of12 resultswithin the time period is included. ABO Group O 09/05/2024 9:24 AM EDT [facility] Rh Type Positive 09/05/2024 9:24 AM EDT [facility] Antibody Screen Negative 09/05/2024 9:24 AM EDT [facility] Blood Venous blood specimen / Unknown Venipuncture / Unknown 09/05/2024 7:51 AM EDT 09/05/2024 8:08 AM EDT us Johny Bennett MD LAB BLOOD BANK TEST ORDERABL ES Final Result [facility] [address] [place] [address], [place] [phone] * Ferritin (09/05/2024 7:51 AM EDT) Only the most recent of3 resultswithin the time period is included. Pathologist [facility] Ferritin 262 26 - 388 ng/mL LAB CHEMISTRY METHOD 09/05/2024 8:33 AM EDT [facility] Blood Venous blood specimen / Unknown Venipuncture / Unknown 09/05/2024 7:51 AM EDT 09/05/2024 8:08 AM EDT Johny Bennett MD LAB BLOOD ORDERABLES Final R esult [facility] [address] [place] [address], [place] [phone] * ECG-Outside (08/31/2024) Only the most recent of2 resultswithin the time period is included. Provider Onbase MD ECG ORDERABLES Final Result * ECG-Annotated (08/31/2024) Provider Onbase MD ECG ORDERABLES Final Result * (ABNORMAL) Hemoglobin and hematocrit (08/30/2024 12:37 PM EDT) Only the most recent of5 resultswithin the time period is included. Hemoglobin 8.4(L) 13.5 - 17.5 g/dL LAB HEMETOLOGY METHOD 08/30/2024 12:48 PM EDT [facility] Hematocrit 27.2(L) 42.0 - 54.0 % LAB HEMETOLOGY METHOD 08/30/2024 12:48 PM EDT [facility] Blood Venous blood specimen / Unknown Venipuncture / Unknown 08/30/2024 12:37 PM EDT 08/30/2024 12:44 PM EDT us Kaiser Francis MD LAB BLOOD ORDERABLES Final Resu lt Performing Organization Address [facility]/ZIP Co de Phone Number [facility] [address] [place] [address], [place] [phone] * (ABNORMAL) POCT Glucose, blood (08/30/2024 11:50 AM EDT) Only the most recent of28 resultswithin the time period is included. [facility] Glucose POCT 141(H) 70 - 100 mg/dL 08/30/2024 11:51 AM EDT [facility] Blood Capillary blood specimen / Unknown 08/30/2024 11:50 AM EDT 08/30/2024 11:52 AM EDT us Kaiser Francis MD LAB POINT OF CARE TE ST DOCKED DEVICE UNSOLICITED RESULTS Final Result Performing Organization Address [facility] Co de Phone Number [facility] [address] [place] [address], [place] [phone] * (ABNORMAL) Basic metabolic panel (08/30/2024 5:21 AM EDT) Only the most recent of9 resultswithin the time period is included. [facility] Sodium 136 133 - 145 mmol/L LAB CHEMISTRY METHOD 08/30/2024 7:05 AM [facility] Potassium 4.0 3.5 - 5.5 mmol/L LAB CHEMISTRY METHOD 08/30/2024 7:05 AM [facility] Chloride 95(L) 96 - 110 mmol/L LAB CHEMISTRY METHOD 08/30/2024 7:05 AM [facility] CO2 38(H) 21 - 32 mmol/L LAB CHEMISTRY METHOD 08/30/2024 7:05 AM [facility] Anion Gap 3 3 - 11 LAB CHEMISTRY METHOD 08/30/2024 7:05 AM [facility] Glucose 111(H) 70 - 100 mg/dL LAB CHEMISTRY METHOD 08/30/2024 7:05 AM EDT [facility] BUN 28(H) 5 - 25 mg/dL LAB CHEMISTRY METHOD 08/30/2024 7:05 AM EDT [facility] Creatinine 1.61(H) 0.70 - 1.30 mg/dL LAB CHEMISTRY METHOD 08/30/2024 7:05 AM EDT [facility] eGFR 44(L) >=60 mL/min/1. 73m2 LAB CHEMISTRY METHOD 08/30/2024 7:05 AM EDT [facility] Comment:Calculation based on the??Chronic Kidney Disease Epidemiology Collaboration (CKD-EPI) equation refit??without adjustment for race. BUN/Creatinine Ratio 17.4 LAB CHEMISTRY METHOD 08/30/2024 7:05 AM EDT [facility] Calcium 8.1(L) 8.5 - 10.5 mg/dL LAB CHEMISTRY METHOD 08/30/2024 7:05 AM EDT [facility] Blood Venous blood specimen / Unknown Venipuncture / Unknown 08/30/2024 5:21 AM EDT 08/30/2024 6:11 AM EDT us Yevgeniy Horton MD LAB BLOOD ORDERABLES Final Re sult [facility] [address] [place] [address], * ECG 12 lead (08/29/2024 2:13 PM EDT) Only the most recent of3 resultswithin the time period is included. Ventricular Rate ECG 65 BPM G[facility] Atrial Rate 170 BPM GEM[facility] QRS Duration 110 ms GEMUSE Q-T Interval 442 ms GEMUSE QTc 459 ms GEMUSE R [place] 21 degrees GEMUSE T [place] 20 degrees GEMUSE ECG Interpretation Atrial fibrillation Low voltage QRS Nonspecific T wave abnormality Abnormal ECG When compared with ECG of 25-AUG-2024 12:38, Nonspecific T wave abnormality no longer evident in Anterior leads Confirmed by NAVIN NOLAN ([id number]) on 08/30/2024 1:32:14 PM [facility] 08/29/2024 2:13 PM EDT 08/30/2024 1:32 PM EDT us Kaiser Francis MD ECG ORDERABLES Final Result Performing Organization Address City/[facility]/ZIP Co de Phone Number GEM[facility] * Magnesium (08/29/2024 5:26 AM EDT) Only the most recent of4 resultswithin the time period is included. Magnesium 2.4 1.9 - 2.6 mg/dL LAB CHEMISTRY METHOD 08/29/2024 7:00 AM EDT [facility] Blood Venous blood specimen / Unknown Venipuncture / Unknown 08/29/2024 5:26 AM EDT 08/29/2024 6:14 AM EDT us Yevgeniy Horton MD LAB BLOOD ORDERABLES Final Re sult Performing Organization Address [facility] Co de Phone Number [facility] [address] [place] [address], [place] [phone] * Digoxin level (08/29/2024 5:26 AM EDT) Only the most recent of3 resultswithin the time period is included. Digoxin Lvl 1.0 0.5 - 2.0 ng/mL LAB CHEMISTRY METHOD 08/29/2024 12:52 PM EDT [facility] Blood Venous blood specimen / Unknown Venipuncture / Unknown 08/29/2024 5:26 AM EDT 08/29/2024 6:14 AM EDT us Kaiser Francis MD LAB BLOOD ORDERABLES Final Resu lt Performing Organization Address City/[facility]/ZIP Co de Phone Number [facility] [address] [place] [address], [place] [phone] * CT Angio Abdomen Pelvis wo and/or w Contrast (08/26/2024 9:00 PM EDT) Anatomical Region Laterality Modality Body Computed Tomogra phy 08/26/2024 9:39 PM EDT Impressions 08/26/2024 9:39 PM EDT 1. No evidence of active GI bleed. 2. Bilateral common iliac artery aneurysms. Attention on follow-up. 3. Nonobstructive punctate 2 mm calculus in the left midpole kidney. 4. Additional findings as described. This document has been electronically signed by: Steve Lopez MD on 08/26/2024 21:39:14 Narrative 08/26/2024 9:39 PM EDT INDICATION: GI bleed CT angiography abdomen and pelvis with contrast. 3-D post processing. Comparison: None Findings: Diffuse atheromatous plaque disease throughout the aorta and branch vessels. Ligated renal artery. Left renal artery is patent. Bilateral aneurysmal dilatation of the iliac bifurcations, on the right measuring 2.7 cm and on the left measuring 3.5 cm. No aortic aneurysms or dissections. Atelectasis. Bronchial wall thickening in the lower lobes with bronchiectasis. Trace bilateral effusions. Hepatomegaly with cirrhosis. Cholelithiasis noted, without significant wall thickening or pericholecystic stranding. Bile ducts are unremarkable. Bilateral adrenal gland nodules, on the left measuring 3 cm on the right measuring 3 cm. Associated intermediate density. Findings are indeterminate. This may be further evaluated with biochemical assay and adrenal protocol imaging if indicated. Status post right nephrectomy. Scattered left-sided hypodense renal cysts with parenchymal lobulations and defect along the lower pole kidney. Nonobstructive punctate 2 mm calculus in the left midpole kidney. No bowel obstruction. Probable intraluminal lipoma in the 3rd segment of the duodenum. Mildly distended bladder. Prostatomegaly noted. Scattered colonic diverticulosis without diverticulitis or colitis. Normal appendix. Osteopenia with diffuse multilevel spondylosis. Right total hip arthroplasty. Probable hemangioma noted at L1. Advanced osteoarthritis in the left hip. Diffuse anasarca. No evidence of active GI bleed. Procedure Note Steve Lopez MD - 08/26/2024 INDICATION: GI bleed CT angiography abdomen and pelvis with contrast. 3-D post processing. Comparison: None Findings: Diffuse atheromatous plaque disease throughout the aorta and branch vessels. Ligated renal artery. Left renal artery is patent. Bilateral aneurysmal dilatation of the iliac bifurcations, on the right measuring 2.7 cm and on the left measuring 3.5 cm. No aortic aneurysms or dissections. Atelectasis. Bronchial wall thickening in the lower lobes with bronchiectasis. Trace bilateral effusions. Hepatomegaly with cirrhosis. Cholelithiasis noted, without significant wall thickening or pericholecystic stranding. Bile ducts are unremarkable. Bilateral adrenal gland nodules, on the left measuring 3 cm on the right measuring 3 cm. Associated intermediate density. Findings are indeterminate. This may be further evaluated with biochemical assay and adrenal protocol imaging if indicated. Status post right nephrectomy. Scattered left-sided hypodense renal cysts with parenchymal lobulations and defect along the lower pole kidney. Nonobstructive punctate 2 mm calculus in the left midpole kidney. No bowel obstruction. Probable intraluminal lipoma in the 3rd segment of the duodenum. Mildly distended bladder. Prostatomegaly noted. Scattered colonic diverticulosis without diverticulitis or colitis. Normal appendix. Osteopenia with diffuse multilevel spondylosis. Right total hip arthroplasty. Probable hemangioma noted at L1. Advanced osteoarthritis in the left hip. Diffuse anasarca. No evidence of active GI bleed. IMPRESSION: 1. No evidence of active GI bleed. 2. Bilateral common iliac artery aneurysms. Attention on follow-up. 3. Nonobstructive punctate 2 mm calculus in the left midpole kidney. 4. Additional findings as described. This document has been electronically signed by: Steve Lopez MD on 08/26/2024 21:39:14 us Navdeep Gardner MD IMG CT PROCEDURES Final Result * Transfuse RBC, Leukoreduced (08/26/2024 4:49 PM EDT) Only the most recent of15 resultswithin the time period is included. us Navdeep Gardner MD BLOOD TRANSFUSION ORDERABLES Fin al Result * Prepare RBC: 2 Units, Leukoreduced (08/26/2024 9:08 AM EDT) Only the most recent of10 resultswithin the time period is included. [facility] Signature Product Code [id number] 08/26/2024 10:16 AM EDT [facility] Unit Number [id number] 08/27/19 10:16 AM [facility] Crossmatch Compatible 08/26/2024 9:57 AM EDT [facility] Dispense Status Transfused 08/26/2024 10:16 AM EDT [facility] Unit ABO Rh OPOS 08/26/2024 10:16 AM EDT [facility] Unit Expiration Date Time [id number] 08/26/2024 10:16 AM [facility] Unit Blood Type 5100 08/26/2024 10:16 AM [facility] Product Code [id number] 08/26/2024 1:[facility] Number [id number] 08/27/19 1:36 PM EDT [facility] Crossmatch Compatible 08/26/2024 9:57 AM [facility] Dispense Status Transfused 08/26/2024 1:36 PM [facility] ABO Rh OPOS 08/26/2024 1:36 PM EDT [facility] Unit Expiration Date Time [id number] 08/26/2024 1:36 PM EDT [facility] Unit Blood Type 5100 08/26/2024 1:36 PM T [facility] Blood Venous blood specimen / Unknown 08/26/2024 9:08 AM EDT 08/23/2024 9:35 PM EDT us Navdeep Gardner MD BLOOD BANK PRODUCT ORDERABLES Fi nal Result [facility] ([facility]) [facility] [address] [place] [address], * EGD Anesthesia - MAC; [facility] ENDOSCOPY (08/24/2024 3:57 PM EDT) Only the most recent of2 resultswithin the time period is included. Anatomical Region Laterality Modality Other 08/24/2024 3:27 PM EDT Impressions 08/24/2024 3:58 PM EDT - Normal esophagus. ? - Gastric antral vascular ectasia without bleeding. ? - Normal examined duodenum. ? - Normal examined jejunum. ? - No specimens collected. Recommendation: ?- Continue supportive care with transfusions as ? needed. Consider bleeding scan or CTA (if possible) if ? hemodynically significant bleeding. Narrative 08/24/2024 3:58 PM EDT [facility] GI Patient Name: Kiran Law Procedure Date: 08/24/2024 3:27 PM Date of : 1950 Age: 74 Gender: Male Note Status: Finalized Attending MD: Gwendolyn Clarke MD, Procedure Date No Time: 08/24/2024 Procedure: ? Upper GI endoscopy Indications: ? Hematochezia Providers: ? Gwendolyn Clarke MD Referring MD: ?Grayson Berrios, DO Medicines: ? General Anesthesia Complications: ? No immediate complications. Estimated Blood Loss: ? Estimated blood loss: none. Procedure: ? Pre-Anesthesia Assessment: ? - ASA Grade Assessment: IV - A patient with severe ? systemic disease that is a constant threat to life. ? After obtaining informed consent, the endoscope was ? passed under direct vision. Throughout the procedure, ? the patient's blood pressure, pulse, and oxygen ? saturations were monitored continuously.The Olympus ? Gastroscope and then colonoscope was introduced ? through the mouth, and advanced into the proximal ? jejunum. The upper GI endoscopy was accomplished ? without difficulty. The patient tolerated the ? procedure well. Findings: ?The esophagus was normal. ? Mild gastric antral vascular ectasia without bleeding ? was present in the gastric antrum. This was very mild ? with no evidence of recent bleeding. No treatment was ? performed. ? The cardia and gastric fundus were normal on ? retroflexion. ? The examined duodenum was normal. No old or new blood ? was seen. ? The examined jejunum was normal. No old or new blood ? was seen. Procedure Code(s): ? --- Professional --- ? 55840, Esophagogastroduodenoscopy, flexible, ? transoral; diagnostic, including collection of ? specimen(s) by brushing or washing, when performed ? (separate procedure) Diagnosis Code(s): ? --- Professional --- ? 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 K92.1, Melena (includes Hematochezia) CPT copyright 2021 [employer]. All rights reserved. The codes documented in this report are preliminary and upon carpenter labor supervisor review may be revised to meet current compliance requirements. Gwendolyn Clarke MD 08/24/2024 3:58:20 PM This report has been signed electronically.Gwendolyn Clarke MD Number of Addenda: 0 Note Initiated On: 08/24/2024 3:27 PM Scope In: Scope Out: ? Endoscopy Department at [facility] - [address] [place] [address], ? [place] [address] Procedure Note Gwendolyn Clarke MD - 08/24/2024 [facility] GI Patient Name: Kiran Law Procedure Date: 08/24/2024 3:27 PM Date of : 1950 Age: 74 Gender: Male Note Status: Finalized Attending MD: Gwendolyn Clarke MD, Procedure Date No Time: 08/24/2024 Procedure: Upper GI endoscopy Indications: Hematochezia Providers: Gwendolyn Clarke MD Referring MD: Grayson Berrios DO Medicines: General Anesthesia Complications: No immediate complications. Estimated Blood Loss: Estimated blood loss: none. Procedure: Pre-Anesthesia Assessment: - ASA Grade Assessment: IV - A patient with severe systemic disease that is a constant threat tolife. After obtaining informed consent, the endoscope was passed under direct vision. Throughout theprocedure, the patient's blood pressure, pulse, and oxygen saturations were monitored continuously.The Olympus Gastroscope and then colonoscope was introduced through the mouth, and advanced into the proximal jejunum. The upper GI endoscopy was accomplished without difficulty. The patient tolerated the procedure well. Findings: The esophagus was normal. Mild gastric antral vascular ectasia withoutbleeding was present in the gastric antrum. This was verymild with no evidence of recent bleeding. No treatmentwas performed. The cardia and gastric fundus were normal on retroflexion. The examined duodenum was normal. No old or newblood was seen. The examined jejunum was normal. No old or newblood was seen. Procedure Code(s): --- Professional --- 82228, Esophagogastroduodenoscopy, flexible, transoral; diagnostic, including collection of specimen(s) by brushing or washing, when performed (separate procedure) Diagnosis Code(s): --- Professional --- K31.819, Angiodysplasia of stomach and duodenum without bleeding K92.1, Melena (includes Hematochezia) CPT copyright 2020 [employer]. All rights reserved. The codes documented in this report are preliminary and upon carpenter labor supervisor reviewmay be revised to meet current compliance requirements. Gwendolyn Clarke MD 08/24/2024 3:58:20 PM This report has been signed electronically.Gwendolyn Clarke MD Number of Addenda: 0 Note Initiated On: 08/24/2024 3:27 PM Scope In: Scope Out: Endoscopy Department at [facility] - [address] [place] [id number] IMPRESSION: - Normal esophagus. - Gastric antral vascular ectasia withoutbleeding. - Normal examined duodenum. - Normal examined jejunum. - No specimens collected. Recommendation: - Continue supportive care with transfusions as needed. Consider bleeding scan or CTA (if possible)if hemodynically significant bleeding. Gwendolyn Clarke MD GI~PROCEDURE ORDERABLES Final Result * TH AN ENDOTRACHEAL(NO CHARGE) (08/24/2024 3:39 PM EDT) Thuy Parrish CRNA - 08/24/2024 3:39 PM EDT Thuy Simmons CRNA ? 08/24/2024 ??3:40 PM General Information and Staff Patient location during procedure: OR Performed by: Thuy Simmons CRNA Authorized by: Warren Polanco MD ?? Intubation Airway not difficult Urgency: elective Final Airway Details Successful airway: ETT Cuffed: yes Successful intubation technique: direct laryngoscopy Facilitating devices/methods: intubating stylet Endotracheal tube insertion site: oral Blade: Barber Blade size: #3 ETT size (mm): 7.0 Cormack-Lehane Classification: grade I - full view of glottis Placement verified by: chest auscultation and capnometry Measured from: lips ETT to lips (cm): 21 Number of attempts at approach: 1 Ventilation between attempts: none Number of other approaches attempted: 0Final airway type: endotracheal airway Indications and Patient Condition Indications for airway management: anesthesia and airway protection Spontaneous ventilation: present Sedation level: No Preoxygenated: yes Soft Tissue Damage: Yes Dentition Unchanged: No Patient position: neutral MILS not maintained throughout Mask difficulty assessment: 0 - not attempted Start Time: 08/24/2024 3:36 PMStop Time: 08/24/2024 3:36 PM Warren Polanco MD ANESTHESIA ORDERABLES Final Re sult * SST tube (08/24/2024 8:49 AM EDT) Only the most recent of2 resultswithin the time period is included. [facility] Extra Tube Hold for add-ons. 08/24/2024 11:01 AM EDT [facility] Comment:Auto resulted. Blood Venous blood specimen / Unknown 08/24/2024 8:49 AM EDT 08/24/2024 9:44 AM EDT Navdeep Gardner MD LAB BLOOD ORDERABLES Final Resul t Performing Organization Address City/[facility] Co de Phone Number [facility] [address] [place] [address], [place] [phone] * Troponin I high sensitivity (08/23/2024 11:42 PM EDT) Only the most recent of2 resultswithin the time period is included. [facility] High Sensitivity Troponin I 13 <=79 ng/L LAB CHEMISTRY METHOD 08/24/2024 12:35 AM EDT [facility] Blood Venous blood specimen / Unknown Venipuncture / Unknown 08/23/2024 11:42 PM EDT 08/23/2024 11:53 PM EDT Narrative [facility] - 08/24/2024 12:35 AM EDT High levels of biotin in samples may falsely decrease hsTroponin values. ??Use caution when interpreting hsTroponin results in patients taking biotin who exhibit renal impairment (eGFR <60) or in patients taking more than 20 mg/day of biotin. us [facility] LAB BLOOD ORDERABLES Final Resu lt Performing Organization Address City/State/[facility] Co de Phone Number [facility] [address] [place] [address], [place] [phone] * (ABNORMAL) Protime-INR (08/23/2024 10:05 PM EDT) Only the most recent of2 resultswithin the time period is included. Protime 14.3(H) 10.6 - 13.9 sec LAB COAGULATION METHOD 08/23/2024 11:12 PM EDT [facility] INR 1.1 LAB COAGULATION METHOD 08/23/2024 11:12 PM EDT [facility] Blood Venous blood specimen / Unknown Venipuncture / Unknown 08/23/2024 10:05 PM EDT 08/23/2024 10:58 PM EDT [facility] LAB BLOOD ORDERABLES Final Resu lt Performing Organization Address [facility] Co de Phone Number [facility] [address] [place] [address], [place] [phone] * B-type natriuretic peptide (08/23/2024 10:05 PM EDT) BNP 45 <=100 pcg/mL LAB CHEMISTRY METHOD 08/23/2024 11:39 PM EDT [facility] Blood Venous blood specimen / Unknown Venipuncture / Unknown 08/23/2024 10:05 PM EDT 08/23/2024 10:58 PM EDT us [facility] LAB BLOOD ORDERABLES Final Resu lt Performing Organization Address [facility] Co de Phone Number [facility] [address] [place] [address], [place] [phone] * XR Chest 1 View (08/23/2024 9:50 PM EDT) Anatomical Region Laterality Modality Body Radiographic Celeste ging 08/24/2024 8:31 AM EDT Impressions 08/24/2024 8:33 AM EDT Impression: 1. Stable cardiomegaly. 2. No active pulmonary process. Telerad JULIANNE ([id number]) -------- FINAL REPORT -------- Dictated By: Herlinda Posada Dictated Date: 08/24/2024 08:31 ET Assigned Physician: Herlinda Posada Reviewed and Electronically Signed By: Herlinda Posada Signed Date: 08/24/2024 08:33 ET Workstation ID: [id number] Transcribed By: Self Edit Transcribed Date: 08/24/2024 08:31 ET Narrative 08/24/2024 8:33 AM EDT History: Weakness. Rectal bleeding. Comparison: 05/24/24, thoracic CT 08/11/24 Findings: Portable AP upright chest at 9:48 PM. The cardiac silhouette remains moderately enlarged. A left atrial appendage flow restrictor is noted. Hilar and mediastinal contours are stable. The pulmonary vascularity is within normal limits. The lungs are grossly clear. The costophrenic angles are sharp. Procedure Note Herlinda Posada MD - 08/24/2024 History: Weakness. Rectal bleeding. Comparison: 05/24/24, thoracic CT 08/11/24 Findings: Portable AP upright chest at 9:48 PM. The cardiac silhouette remainsmoderately enlarged. A left atrial appendage flow restrictor is noted.Hilar and mediastinal contours are stable. The pulmonary vascularity iswithin normal limits. The lungs are grossly clear. The costophrenic anglesare sharp. IMPRESSION: Impression: 1. Stable cardiomegaly. 2. No active pulmonary process. Telerad JULIANNE ([id number]) -------- FINAL REPORT -------- Dictated By: Herlinda Posada Dictated Date: 08/24/2024 08:31 ET Assigned Physician: Herlinda Posada Reviewed and Electronically Signed By: Herlinda Posada Signed Date: 08/24/2024 08:33 ET Workstation ID: [id number] Transcribed By: Self Edit Transcribed Date: 08/24/2024 08:31 ET us Jazmine Cline PA IMG XR PROCEDURES Final Result * (ABNORMAL) Comprehensive metabolic panel (08/23/2024 9:21 PM EDT) Only the most recent of3 resultswithin the time period is included. Sodium 139 133 - 145 mmol/L LAB CHEMISTRY METHOD 08/23/2024 10:33 PM [facility] Potassium 4.3 3.5 - 5.5 mmol/L LAB CHEMISTRY METHOD 08/23/2024 10:33 PM [facility] Comment:Hemolysis present Chloride 96 96 - 110 mmol/L LAB CHEMISTRY METHOD 08/23/2024 10:33 PM [facility] CO2 32 21 - 32 mmol/L LAB CHEMISTRY METHOD 08/23/2024 10:33 PM [facility] Anion Gap 11 3 - 11 LAB CHEMISTRY METHOD 08/23/2024 10:33 PM [facility] Glucose 184(H) 70 - 100 mg/dL LAB CHEMISTRY METHOD 08/23/2024 10:33 PM [facility] BUN 74(H) 5 - 25 mg/dL LAB CHEMISTRY METHOD 08/23/2024 10:33 PM [facility] Creatinine 1.82(H) 0.70 - 1.30 mg/dL LAB CHEMISTRY METHOD 08/23/2024 10:33 PM [facility] eGFR 38(L) >=60 mL/min/1. 73m2 LAB CHEMISTRY METHOD 08/23/2024 10:33 PM [facility] Comment:Calculation based on the??Chronic Kidney Disease Epidemiology Collaboration (CKD-EPI) equation refit??without adjustment for race. BUN/Creatinine Ratio 40.7 LAB CHEMISTRY METHOD 08/23/2024 10:33 PM [facility] Calcium 8.2(L) 8.5 - 10.5 mg/dL LAB CHEMISTRY METHOD 08/23/2024 10:33 PM EDT [facility] AST (SGOT) 27 10 - 42 unit/L LAB CHEMISTRY METHOD 08/23/2024 10:33 PM EDT [facility] ALT (SGPT) 13 10 - 60 unit/L LAB CHEMISTRY METHOD 08/23/2024 10:33 PM EDT [facility] Alkaline Phosphatase 31(L) 42 - 121 unit/L LAB CHEMISTRY METHOD 08/23/2024 10:33 PM EDT [facility] Total Protein 5.5(L) 6.0 - 8.0 g/dL LAB CHEMISTRY METHOD 08/23/2024 10:33 PM EDT [facility] Albumin 3.0(L) 3.2 - 5.0 g/dL LAB CHEMISTRY METHOD 08/23/2024 10:33 PM EDT [facility] Total Bilirubin 0.5 0.0 - 1.4 mg/dL LAB CHEMISTRY METHOD 08/23/2024 10:33 PM EDT [facility] Blood Venous blood specimen / Unknown Venipuncture / Unknown 08/23/2024 9:21 PM EDT 08/23/2024 9:35 PM EDT us Wilder Willingham MD LAB BLOOD ORDERABLES Wendie l Result [facility] [address] [place] [address], * CT Chest wo Contrast (08/11/2024 11:52 AM EDT) Anatomical Region Laterality Modality Body Computed Tomogra phy 08/11/2024 2:20 PM EDT Impressions 08/11/2024 3:03 PM EDT Emphysema. ??New 6 mm nodule in the left lower lobe compared to 2016. ??Otherwise stable pulmonary nodules. ??Chest CT recommended in 3 months to assess change. Stable bilateral adrenal adenomas dating back to 2015 Cirrhosis with evidence of portal hypertension. -------- FINAL REPORT -------- Dictated By: ÁNGEL SHARMA Dictated Date: 08/11/2024 14:20 ET Assigned Physician: ÁNGEL SHARMA Reviewed and Electronically Signed By: ÁNGEL SHARMA Signed Date: 08/11/2024 15:03 ET Workstation ID: [id number] Transcribed By: Self Edit Transcribed Date: 08/11/2024 14:20 ET Narrative 08/11/2024 3:03 PM EDT PROCEDURE: Chest CT INDICATION: Lung nodule, adrenal nodule TECHNIQUE: Chest CT without contrast. Multi planar reformats were created and interpreted. The examination was performed utilizing dose reduction techniques. ??Total DLP 1041 COMPARISON: ??03/14/2016 and 08/21/2014 FINDINGS: LUNGS/PLEURA: Central airways are patent. ??Bibasilar atelectasis. ??6 mm nodule in the left lower lobe is new compared to 2016. ??2 to 3 mm nodules in the right middle lobe are stable compared to prior. ??5 mm nodule at the right lung base is stable compared to 2016 No pleural effusion or pneumothorax. ??Mild emphysema with chronic bronchitis. MEDIASTINUM: Thyroid gland is normal. ??No mediastinal or hilar lymphadenopathy. ??Esophagus is normal. ??Biatrial and biventricular dilation. ??Mild coronary artery calcifications. ??Left atrial appendage occlusion device in place, not well assessed on this noncontrast exam. ??No pericardial effusion CHEST WALL: No axillary lymphadenopathy or superficial hematoma. UPPER ABDOMEN:Cirrhosis and splenomegaly indicative of portal hypertension.. ??Bilateral adrenal adenomas are stable dating back to 2014 BONES: Subacute or chronic, healing fracture of the right posterior lateral 8th rib. ??No acute fractures. ??Degenerative changes seen throughout the spine. ??L1 intraosseous hemangioma Procedure Note Ángel Sharma MD - 08/11/2024 PROCEDURE: Chest CT INDICATION: Lung nodule, adrenal nodule TECHNIQUE: Chest CT without contrast. Multi planar reformats were createdand interpreted. The examination was performed utilizing dose reductiontechniques. Total DLP 1041 COMPARISON: 03/14/2016 and 08/21/2014 FINDINGS: LUNGS/PLEURA: Central airways are patent. Bibasilar atelectasis. 6 mmnodule in the left lower lobe is new compared to 2016. 2 to 3 mm nodulesin the right middle lobe are stable compared to prior. 5 mm nodule at theright lung base is stable compared to 2016 No pleural effusion orpneumothorax. Mild emphysema with chronic bronchitis. MEDIASTINUM: Thyroid gland is normal. No mediastinal or hilarlymphadenopathy. Esophagus is normal. Biatrial and biventriculardilation. Mild coronary artery calcifications. Left atrial appendageocclusion device in place, not well assessed on this noncontrast exam. Nopericardial effusion CHEST WALL: No axillary lymphadenopathy or superficial hematoma. UPPER ABDOMEN:Cirrhosis and splenomegaly indicative of portalhypertension.. Bilateral adrenal adenomas are stable dating back [id number] BONES: Subacute or chronic, healing fracture of the right posteriorlateral 8th rib. No acute fractures. Degenerative changes seenthroughout the spine. L1 intraosseous hemangioma IMPRESSION: Emphysema. New 6 mm nodule in the left lower lobe compared to 2016.Otherwise stable pulmonary nodules. Chest CT recommended in 3 months toassess change. Stable bilateral adrenal adenomas dating back to 2014 Cirrhosis with evidence of portal hypertension. -------- FINAL REPORT -------- Dictated By: ÁNGEL SHARMA Dictated Date: 08/11/2024 14:20 ET Assigned Physician: ÁNGEL SHARMA Reviewed and Electronically Signed By: ÁNGEL SHARMA Signed Date: 08/11/2024 15:03 ET Workstation ID: [id number] Transcribed By: Self Edit Transcribed Date: 08/11/2024 14:20 ET Jessica Neal MD [facility] CT PROCEDURES Final Result * (ABNORMAL) Complete blood count (07/30/2024 12:15 AM EST) Only the most recent of3 resultswithin the time period is included. WBC 6.1 4.8 - 10.8 K/mcL LAB HEMETOLOGY METHOD 07/30/2024 12:25 AM EST [facility] RBC 3.00(L) 4.50 - 5.50 M/mcL LAB HEMETOLOGY METHOD 07/30/2024 12:25 AM EST [facility] Hemoglobin 8.2(L) 13.5 - 17.5 g/dL LAB HEMETOLOGY METHOD 07/30/2024 12:25 AM [facility] Hematocrit 28.5(L) 42.0 - 54.0 % LAB HEMETOLOGY METHOD 07/30/2024 12:25 AM [facility] MCV 94.7 79.0 - 98.0 FL LAB HEMETOLOGY METHOD 07/30/2024 12:25 AM [facility] MCH 27.2 27.0 - 32.0 pcg LAB HEMETOLOGY METHOD 07/30/2024 12:25 AM [facility] MCHC 28.8(L) 32.0 - 37.0 g/dL LAB HEMETOLOGY METHOD 07/30/2024 12:25 AM [facility] RDW 19.3(H) 11.0 - 15.0 % LAB HEMETOLOGY METHOD 07/30/2024 12:25 AM [facility] Platelets 230 130 - 400 K/mcL LAB HEMETOLOGY METHOD 07/30/2024 12:25 AM [facility] MPV 9.6 7.0 - 11.0 FL LAB HEMETOLOGY METHOD 07/30/2024 12:25 AM [facility] NRBC 0.0 <1.0 % LAB HEMETOLOGY METHOD 07/30/2024 12:25 AM [facility] NRBC Absolute 0.00 <0.10 K/mcL LAB HEMETOLOGY METHOD 07/30/2024 12:25 AM [facility] Blood Venous blood specimen / Unknown Venipuncture / Unknown 07/30/2024 12:15 AM EST 07/30/2024 12:22 AM EST us Jake Land MD LAB BLOOD ORDERABLES Final Re sult [facility] [address] [place] [address], * (ABNORMAL) Erythropoietin (07/04/2024 11:13 AM EST) Only the most recent of2 resultswithin the time period is included. Erythropoietin 182.6(H) 2.6 - 18.5 mIU/mL 07/07/2024 12:55 PM EST [facility] Comment: Test performed at [facility], [address] , [place], [place] ??[address] ? [phone] Brenda Murray MD, PhD - Director Of Maintenance Blood Venous blood specimen / Unknown Venipuncture / Unknown 07/04/2024 11:13 AM EST 07/04/2024 11:30 AM EST Johny Bennett MD LAB BLOOD ORDERABLES Final R esult Performing Organization Address City/[facility]/ZIP Co de Phone Number [facility] [address] [place] [address] * (ABNORMAL) Creatinine serum (07/04/2024 11:13 AM EST) Creatinine 1.88(H) 0.70 - 1.30 mg/dL LAB CHEMISTRY METHOD 07/04/2024 12:50 PM EST [facility] eGFR 37(L) >=60 mL/min/1. 73m2 LAB CHEMISTRY METHOD 07/04/2024 12:50 PM EST [facility] Comment:Calculation based on the??Chronic Kidney Disease Epidemiology Collaboration (CKD-EPI) equation refit??without adjustment for race. Blood Venous blood specimen / Unknown Venipuncture / Unknown 07/04/2024 11:13 AM EST 07/04/2024 11:30 AM EST us Johny Bennett MD LAB BLOOD ORDERABLES Final R esult [facility] [address] [place] [address], [place] [phone] * Transferrin (07/04/2024 11:13 AM EST) Transferrin 324 200 - 360 mg/dL 07/07/2024 4:01 AM EST [facility] Comment: Test performed at [facility], [address], [place], [place] ??[address] ? [phone] Brenda Murray MD, PhD - Director Of Maintenance Blood Venous blood specimen / Unknown Venipuncture / Unknown 07/04/2024 11:13 AM EST 07/04/2024 11:30 AM EST us Johny Bennett MD LAB BLOOD ORDERABLES Final R esult [facility] [address] [place] [address] * (ABNORMAL) Iron (07/04/2024 11:13 AM EST) Iron 35(L) 50 - 160 mcg/dL LAB CHEMISTRY METHOD 07/04/2024 12:50 PM EST [facility] Blood Venous blood specimen / Unknown Venipuncture / Unknown 07/04/2024 11:13 AM EST 07/04/2024 11:30 AM EST Johny Bennett MD LAB BLOOD ORDERABLES Final R esult [facility] [address] [place] [address], [place] [phone] * Folate (07/04/2024 11:13 AM EST) Folate 13.5 2.8 - 17.0 ng/ml LAB CHEMISTRY METHOD 07/04/2024 12:50 PM EST [facility] Blood Venous blood specimen / Unknown Venipuncture / Unknown 07/04/2024 11:13 AM EST 07/04/2024 11:30 AM EST us Johny Bennett MD LAB BLOOD ORDERABLES Final R esult Performing Organization Address [facility]/ZIP Co de Phone Number [facility] [address] [place] [address], [place] [phone] * (ABNORMAL) Vitamin B12 (07/04/2024 11:13 AM EST) [facility] Vitamin B-12 1,845(H) 250 - 900 pcg/mL LAB CHEMISTRY METHOD 07/04/2024 12:50 PM EST [facility] Blood Venous blood specimen / Unknown Venipuncture / Unknown 07/04/2024 11:13 AM EST 07/04/2024 11:30 AM EST Johny Bennett MD LAB BLOOD ORDERABLES Final R esult Performing Organization Address [facility] Co de Phone Number [facility] [address] [place] [address], [place] [phone] * (ABNORMAL) Iron and TIBC (06/16/2024 4:31 PM EST) [facility] Iron 25(L) 50 - 160 mcg/dL LAB CHEMISTRY METHOD 06/16/2024 5:29 PM EST [facility] TIBC 418 250 - 450 mcg/dL LAB CHEMISTRY METHOD 06/16/2024 5:29 PM EST [facility] Iron Saturation 6(L) 20 - 50 % LAB CHEMISTRY METHOD 06/16/2024 5:29 PM EST [facility] Blood Venous blood specimen / Unknown Venipuncture / Unknown 06/16/2024 4:31 PM EST 06/16/2024 4:39 PM EST us Johny Bennett MD LAB BLOOD ORDERABLES Final R esult Performing Organization Address [facility]/ZIP Co de Phone Number [facility] [address] [place] [address], * (ABNORMAL) Reticulocyte count (06/15/2024 12:43 PM EST) Retic Ct Abs 0.120(H) 0.030 - 0.090 M/mcL LAB HEMETOLOGY METHOD 06/17/2024 8:47 AM EST [facility] Retic Ct Pct 7.1(H) 0.7 [...] EST Johny Bennett MD LAB BLOOD ORDERABLES Final R esult Performing Organization Address [facility]/ZIP Co de Phone Number [facility] [address] [place] [address], [place] [phone] * Miscellaneous reference lab test (06/07/2024) Only the most recent of5 resultswithin the time period is included. us Provider Onbase LAB BLOOD ORDERABLES Final Re sult * External Colonoscopy Report (11/09/2014 1:00 PM EDT) Anatomical Region Laterality Modality Endoscopy us Historical Provider GI~PROCEDURE ORDERABLES F inal Result from Last 3 Months or Most Recently Relevant to Health Maintenance Insurance [employer] - [place] MEDICARE ADVANTAGE Advance Directives Documents on File Type Date Recorded Patient Area Operations Manager Expl anation Health Care Decision (hx) 09/27/2020 [...] on File) Date Activated Date Inactivated Comments 07/29/2024 12:46 PM 08/02/2024 3:49 PM This is orde r is used when code status has not been discussed with the patient, or code status is otherwise unknown/unconfirmed To update the patient's code status, place a code status order. Do not modify or discontinue any currently active code status orders. * Full Code - Default Date Activated Date Inactivated Comments 05/24/2024 5:20 [...] Relationship Healthcare Agent Relationshi p Communication Farida Law Spouse Health Care Agent Care Teams Double Reamer Operator Relationship Specialty Start Date End Date Grayson Berrios DO [address] [place] [phone] PCP - General 08/22/15
== END 2024-09-05 12:56 | disposition home or self-care (01) ==
LOC: HO.HCS 12:19
PROVIDERS: PCP Internal Medicine; Visit Provider Internal Medicine Cardiovascular Disease
DX: I50.32 Chronic diastolic (congestive) heart failure (principal); I48.20 Chronic atrial fibrillation, unspecified
CPT/HCPCS: 99214; G2211

== ENCOUNTER → 2024-09-05 12:18 | Outpatient (BNVA) | payer MEDICARE, SELFPAY | PROVIDERS: PCP Internal Medicine; Visit Provider Internal Medicine Cardiovascular Disease | DX: I50.32 Chronic diastolic (congestive) heart failure (principal); I48.20 Chronic atrial fibrillation, unspecified; Z79.899 Other long term (current) drug therapy | CPT/HCPCS: 99212 ==

== ENCOUNTER 2024-09-22 13:52 | Outpatient (REF) | payer MEDICARE, SELFPAY ==
--- OUTSIDE RECORDS SUMMARY | 2024-09-22 16:19 | XMS_ITS | Encounter Summary ---
Author Organization [facility] Address [address] [place] [address] Care Team Providers Care Manager Department Name Role Phone Grayson Berrios DO Primary Care Provider [phone] Reason for Visit * Episode Based Medications (Routine) - Authorized Specialty Diagnoses / Procedures Referred By Contac t Referred To Contact Diagnoses Chronic renal failure, stage 3 (moderate), unspecified whether stage 3a or 3b CKD (CMS/HCC V24, CMS/HCC V28) Anemia, unspecified type Drug therapy Johny Bennett MD [address] [place] [address] Phone: tel: fax: [facility] [address] [place] [phone] Phone: tel: fax: Referral ID Status Reason Start Date Expiration Date V isits Requested Visits Authorized [id number] Authorized 06/16/2024 06/16/2025 1 52 Encounter Details Date Type Department Care Team (Latest Contact Info) Description 09/19/2024 8:22 AM EDT Hospital Encounter [facility] [address] [place] [phone] Johny Bennett MD [address] [place] [address] Chronic renal failure, stage 3 (moderate), unspecified whether stage 3a or 3b CKD (CMS/HCC V24, CMS/HCC V28) (Primary Dx); Anemia, unspecified type; Drug therapy Social History Tobacco Use Types Packs/Day Years [...] Sign Reading Time Taken Comments Blood Pressure 105/51 09/19/2024 7:00 AM EDT Pulse 63 09/19/2024 7:00 AM EDT Temperature 36.5 ??C (97.7 ??F) 09/19/2024 7:00 AM ED T Respiratory Rate 20 09/19/2024 7:00 AM EDT Oxygen Saturation 100% 09/19/2024 7:00 AM EDT Inhaled Oxygen Concentration - - Weight - - Height - - Body Mass Index - - documented in this encounter Progress Notes * Aspen Israel RN - 09/19/2024 8:30 AM EDT Hgb 9.4 today per labs drawn stat downstairs. Pt denies any acute issues- stable assessment., will give retacrit today. Pt arrives ambulatory with O2 2LNC- denies any SOB. Appears well in good spirits. Injection given without incident in left arm. Stable upon discharge with next appts in place. documented in this encounter Plan of Treatment Upcoming Encounters Date Type Department Care Team (Late st Contact Info) Description 09/26/2024 8:30 AM EDT Appointment [facility] [address] [facility] 2nd [place] [phone] 09/28/2024 8:00 AM EDT Office Visit Gastroenterology - [address] [place] [phone] Kathleen Sethi PA [address] [address] 10/05/2024 7:45 AM EDT Clinical Support Gastroenterology - [address] [place] [phone] 10/07/2024 10:30 AM EDT Office Visit Gastroenterology - [address] [place] [phone] sIela Ibanez, [place] [address] [address] 11/03/2024 10:15 AM EDT Office Visit [facility] Hematology Oncology [address] [place] [phone] Johny Bennett MD [address] [place] [address] 11/17/2024 10:00 AM EDT Office Visit Pulmonolgy - [place] [address] [phone] Jessica Neal MD [address] [address] documented as of this encounter Visit Diagnoses Diagnosis Chronic renal failure, stage 3 (moderate), unspecified whether stage 3a or 3b CKD (CMS/HCC V24, CMS/HCC V28)- Primary Anemia, unspecified type Drug therapy Encounter for other specified aftercare documented in this encounter Administered Medications Inactive Administered Medications - up to 3 most recent administrations Medication Order MAR Action Action Date Dose Rate Site epoetin donna-epbx (RETACRIT) injection 20,000 Units 20,000 Units, subcutaneous, Once, On Thu09/19/24 at 0900, For 1 doseIndications:Chronic renal failure, stage 3 (moderate), unspecified whether stage 3a or 3b CKD (CMS/HCC V24, CMS/[facility] V28),Anemia, unspecified type,Drug therapy Given 09/19/2024 8:57 AM EDT 20,000 Units Left Upper Arm (Back) documented in this encounter Orders Medications Ordered That Bryon ht Not Have Been Administered Count Last Ordered Date First Ordered Date epoetin donna-epbx (RETACRIT) injection 20,000 Units 1 09/19/2024 Nursing Count Last Ordered Date First Orde red Date ONC NURSING COMMUNICATION 1 09/19/2024 ONC NURSING COMMUNICATION 11 1 09/19/2024 ONC NURSING COMMUNICATION 5 1 09/19/2024 documented in this encounter Care Teams Manager Department Relationship Specialty Start Date End Date Grayson Berrios DO [address] [place] [phone] PCP - General 08/22/15 documented as of this encounter
--- OUTSIDE RECORDS SUMMARY | 2024-09-22 16:19 | XMS_ITS | Encounter Summary ---
Author Organization [facility] Address [address] [place] [address] Care Team Providers Care Color Artist Name Role Phone Grayson Berrios DO Primary Care Provider [phone] Encounter Details Date Type Department Care Team (Late st Contact Info) Description 04/04/[address] [facility] - Main Lab 299 [facility] [place] [phone] Johny Bennett MD [address] [place] [address] Chronic kidney disease, unspecified; Monoclonal gammopathy; Nutritional [...] Info) Description 09/26/2024 8:30 AM EDT Appointment [facility] [address] [facility] 2nd [place] [phone] 09/28/2024 8:00 AM EDT Office Visit Gastroenterology - [address] [phone] Kathleen Sethi PA [address] [address] 10/05/2024 7:45 AM EDT Clinical Support Gastroenterology - [address] [phone] 10/07/2024 10:30 AM EDT Office Visit Gastroenterology - [address] [phone] Isela Ibanez, [place] [address] [address] 11/03/2024 10:15 AM EDT Office Visit [facility] Hematology Oncology [address] [place] [phone] Johny Bennett MD [address] [place] [address] 11/17/2024 10:00 AM EDT Office Visit Pulmonolgy - [place] [address] [phone] Jessica Neal MD [address] [address] documented as of this encounter Procedures Procedure [...] ABO Group O 04/04/2024 12:50 PM EST [facility] Rh Type Positive 04/04/2024 12:50 PM EST [facility] Antibody Screen Negative 04/04/2024 12:50 PM [facility] Blood Venous blood specimen / Unknown 04/04/2024 8:00 AM EST 04/04/2024 12:01 PM EST Johny Bennett MD LAB BLOOD BANK TEST ORDERABL ES Final Result [facility] [address] [place] [address], * (ABNORMAL) Complete blood count (04/04/2024 8:00 AM EST) Pathologist [facility] WBC 5.1 4.8 - 10.8 K/mcL LAB HEMETOLOGY METHOD 04/04/2024 10:13 AM [facility] RBC 2.50(L) 4.50 - 5.50 M/mcL LAB HEMETOLOGY METHOD 04/04/2024 10:13 AM [facility] Hemoglobin 6.6(L) 13.5 - 17.5 g/dL LAB HEMETOLOGY METHOD 04/04/2024 10:13 AM [facility] Hematocrit 23.2(L) 42.0 - 54.0 % LAB HEMETOLOGY METHOD 04/04/2024 10:13 AM [facility] MCV 91.3 79.0 - 98.0 FL LAB HEMETOLOGY METHOD 04/04/2024 10:13 AM [facility] MCH 26.0(L) 27.0 - 32.0 pcg LAB HEMETOLOGY METHOD 04/04/2024 10:13 AM [facility] MCHC 28.4(L) 32.0 - 37.0 g/dL LAB HEMETOLOGY METHOD 04/04/2024 10:13 AM [facility] RDW 17.5(H) 11.0 - 15.0 % LAB HEMETOLOGY METHOD 04/04/2024 10:13 AM [facility] Platelets 273 130 - 400 K/mcL LAB HEMETOLOGY METHOD 04/04/2024 10:13 AM [facility] MPV 10.8 7.0 - 11.0 FL LAB HEMETOLOGY METHOD 04/04/2024 10:13 AM [facility] NRBC 0.0 <1.0 % LAB HEMETOLOGY METHOD 04/04/2024 10:13 AM [facility] NRBC Absolute 0.00 <0.10 K/mcL LAB HEMETOLOGY METHOD 04/04/2024 10:13 AM [facility] Blood Venous blood specimen / Unknown 04/04/2024 8:00 AM EST 04/04/2024 9:58 AM EST us Johny Bennett MD LAB BLOOD ORDERABLES Final R esult [facility] [address] [place] [address], documented in this encounter Visit Diagnoses Diagnosis Chronic kidney disease, unspecified Monoclonal gammopathy Monoclonal paraproteinemia Nutritional anemia, unspecified documented in this encounter Care Teams Color Artist Relationship Specialty Start Date End Date Grayson Berrios DO [address] [place] [phone] PCP - General 08/22/15 documented as of this encounter
--- OUTSIDE RECORDS SUMMARY | 2024-09-22 16:19 | XMS_ITS | Clinical Summary ---
Author Organization [facility] Address [address] [facility] [address] [place] [address] Phone Care Team Providers Care Digital Strategy Director Name Role Phone Grayson Berrios DO Primary Care Provider [phone] Allergies No known active allergies Medications albuterol [...] Colorectal Cancer Screening: Sigmoidoscopy 1998 Pneumococcal Vaccine: 50+ Years (3 of 3 - PPSV23, PCV20 or PCV21) 03/13/2018 02/16/2015, 03/13/2013 Influenza Vaccine (Season Ended) 2025 Pneumococcal Vaccine: Peds ( 0 to 5 Years) and At-Risk Patients (6 to 49 Years) Discontinued 02/16/2015, 03/13/2013 Hepatitis B Vaccine Aged Out No longe r eligible based on patient's age to complete this topic Insurance [facility] Care Teams Digital Strategy Director Relationship Specialty Start Date End Date Grayson Berrios DO [address] [place] [address] PCP - General 06/11/20
--- OUTSIDE RECORDS SUMMARY | 2024-09-22 16:19 | XMS_ITS | Encounter Summary ---
Author Organization [facility] Address [address] [place] [address] Care Team Providers Care Fork Lift Technician Name Role Phone RaquelgenedoreenGrayson Primary Care Provider [phone] Encounter Details Date Type Department Care Team [...] Info) Description 09/26/2024 8:30 AM EDT Appointment [facility] Center [address] [employer] [employer] 2nd [place] [phone] 09/28/2024 8:00 AM EDT Office Visit Gastroenterology - [address] [phone] Kathleen Sethi PA [address] [place] [address] 10/05/2024 7:45 AM EDT Clinical Support Gastroenterology - [address] [phone] 10/07/2024 10:30 AM EDT Office Visit Gastroenterology - [address] [phone] Isela Ibanez, [place] [address] [address] 11/03/2024 10:15 AM EDT Office Visit [facility] Hematology Oncology [address] [place] [phone] Johny Bennett MD [address] [place] [address] 11/17/2024 10:00 AM EDT Office Visit Pulmonolgy - [place] [address] [phone] Jessica Neal MD [address] [address] documented as of this encounter Visit Diagnoses Diagnosis Chronic kidney disease, stage 3a (CMS/HCC V24, CMS/HCC V28) documented in this encounter Care Teams Fork Lift Technician Relationship Specialty Start Date End Date Grayson Berrios DO [address] [place] [phone] PCP - General 08/22/15 documented as of this encounter
--- OUTSIDE RECORDS SUMMARY | 2024-09-22 16:20 | XMS_ITS ---
Author Organization [facility] Address [address] [place] [address] Phone Care Team Providers Care Chief Nursing Executive Name Role Phone Yash Grayson Primary Care Provider [phone] Active Problems Problem Noted Date Diagnosed Date Chronic blood loss anemia 09/20/2024 Drug therapy 09/05/2024 Gastrointestinal hemorrhage, unspecified gastrointestinal hemorrhage type 08/24/2024 CHF (congestive heart failure) ([facility] V24, [facility] V28) 08/24/2024 CAD (coronary artery disease) 08/24/2024 Liver disease 08/24/2024 Chronic obstructive pulmonar y disease ([facility] V24, [facility] V28) 08/24/2024 Chronic renal impairment, st age 3 (moderate) ([facility] V24, [facility] V28) 08/24/2024 Dysrhythmias 08/24/2024 BRBPR (bright red blood per rectum) 07/29/2024 BPH (benign prostatic hyperplasia) 07/17/2024 Chronic respiratory failure with hypoxia ([facility] V24, [facility] V28) 07/17/2024 Clear cell carcinoma of kidney ([facility] V24, [facility] V28) 07/17/2024 Dyslipidemia 07/17/2024 (HFpEF) heart failure with p reserved ejection fraction ([facility] V24, [facility] V28) 07/17/2024 COPD with emphysema ([facility] V24, [facility] V28) 0 07/17/2024 CRF (chronic renal failure) 06/16/2024 Iron deficiency 05/27/2024 Anemia, unspecified type 05/24/2024 Myelodysplastic syndrome ([facility] V24, [facility] V 28) 04/06/2024 Diabetes type 2, controlled ([facility] V24, [facility] V28) 01/25/2024 COPD (chronic obstructive pu lmonary disease) ([facility] V24, [facility] V28) 01/25/2024 Benign hypertensive renal disease 11/26/2020 Stage 3a chronic kidney disease ([facility] V24, [facility] V28) 11/26/2020 Depressive disorder 01/01/2007 Congestive heart failure ([facility] V24, [facility] V 28) 08/10/2006 Overview (09/20/2024): EF 25-30% echo 07/08, cath negative IMO update Atrial fibrillation ([facility] V24, [facility] V28) 0 07/18/2005 Malaise and fatigue 07/18/2005 Obesity, unspecified 07/18/2005 Alcohol abuse 05/05/2005 Essential hypertension, benign 05/05/2005 Current Oncology Plans FERUMOXYTOL ( FERAHEME ) 510 mg IVPB* Plan Start Date:08/09/2024 Plan Provider:Johny Bennett MD Linked Problems Myelodysplastic syndrome ( [facility] V24, [facility] V28)Anemia, unspecified typeIron deficiency Treatment Medications No medications scheduled. OUTPATIENT TRANSFUSION (PRN)* Plan Start Date:04/06/2024 Plan Provider:Johny Bennett MD Linked Problems Myelodysplastic syndrome ( [facility] V24, [facility] V28) Treatment Medications No medications scheduled. Other Current Plans EPOETIN [place] - ORIGINATOR OR BIOSIMILAR - ONCOLOGY ( SUBCUTANEOUS INJECTION )* Plan Start Date:06/17/2024 Plan Provider:Johny Bennett MD Linked Problems Chronic renal failure, stage 3 (moderate), unspecified whether stage 3a or 3b CKD (CMS/HCC V24, CMS/HCC V28)Anemia, unspecified typeDrug therapy Treatment Medications No medications scheduled. Past Plans No past plan information found. Radiation Treatments * No radiation treatments are documented for this patient in [facility]. Treatments may have been administered in another system.
--- OUTSIDE RECORDS SUMMARY | 2024-09-22 16:20 | XMS_ITS | Encounter Summary ---
Author Organization [facility] Address [address] [place] [address] Care Team Providers Care Swing Driver Name Role Phone Grayson Berrios DO Primary Care Provider [phone] Encounter Details Date Type Department Care Team (Late st Contact Info) Description 04/11/2024 Lab Requisition [facility] - Main Lab [address] [facility] [place] [address] Meghana Hayden PA [address] [place] [phone] Frequency of micturition; Anemia, unspecified Social [...] Info) Description 09/26/2024 8:30 AM EDT Appointment [facility] In[facility] Center [address] [facility] 2nd [place] [phone] 09/28/2024 8:00 AM EDT Office Visit Gastroenterology - 299 [place] [address] [phone] Kathleen Sethi PA [address] [address] 10/05/2024 7:45 AM EDT Clinical Support Gastroenterology - [address] [phone] 10/07/2024 10:30 AM EDT Office Visit Gastroenterology - [address] [phone] Isela Ibanez, [place] [address] [address] 11/03/2024 10:15 AM EDT Office Visit [facility] Hematology Oncology [address] [place] [phone] Johny Bennett MD [address] [place] [address] 11/17/2024 10:00 AM EDT Office Visit Pulmonolgy - [place] [address] [phone] Jessica Neal MD [address] [address] documented as of this encounter Procedures Procedure Name Priority Date/Time Associated Diagnosis Comments NON-GYNECOLOGIC CYTOLOGY 04/08/2024 12:00 AM EST Frequency of micturition Anemia, unspecified documented in this encounter Results * Non-gynecologic cytology (04/08/2024 12:00 AM EST) Final Diagnosis Urine: Negative for high grade urothelial carcinoma. 04/13/2024 4:[address] [facility] Specimen A Adequacy Satisfactory for evaluation 04/13/2024 4:06 PM [facility] Gross Description A. Urine, Clean Catch, : Rec'd 20 cc of clear yellow fluid. 1 ThinPrep preparation. 04/13/2024 4:06 PM [facility] Disclaimer Unless otherwise specified, all tissue is 10% NB formalin fixed and paraffin embedded. Technical cytopathology services provided by [facility], at [address] [place] [address] (CLIA # [id number]/Sonia Singleton MD, Hydrate Thickener Operator.) 04/13/2024 4:06 PM [facility] Urine Urine specimen obtained by clean catch procedure / Unknown 04/08/2024 04/11/2024 10:49 AM EST us [facility] CYTOLOGY ORDERABLES Wendie l Result [facility] [address] [place] [address], documented in this encounter Visit Diagnoses Diagnosis Frequency of micturition Urinary frequency Anemia, unspecified documented in this encounter Care Teams Swing Driver Relationship Specialty Start Date End Date Grayson Berrios DO [address] [place] [phone] PCP - General 08/22/15 documented as of this encounter
--- OUTSIDE RECORDS SUMMARY | 2024-09-22 16:20 | XMS_ITS | Clinical Summary ---
Author Organization [facility] Address [address] [place] [address] Phone Care Team Providers Care Freight Brakeman Name Role Phone YashGrayson Primary Care Provider [phone] Allergies No known active allergies Medications albuterol [...] ons:Chronic obstructive pulmonary disease, unspecified COPD type (CMS/HCC V24, CMS/HCC V28) Inhale 1 puff by mouth 1 (one) time each day. 3 each 3 07/15/19 25 026 Active Incruse Ellipta 62.5 mcg/actuation inhalationIndic ations:Chronic obstructive pulmonary disease, unspecified COPD type (CMS/HCC V24, CMS/HCC V28) Inhale 1 puff by mouth 1 (one) [...] total) by mouth 2 times daily. 04/16/20 24 025 Discontinued(St op Taking at Discharge) aspirin 81 mg EC tablet Take 1 tablet (81 mg total) by mouth 1 (one) time each day. 04/14/20 025 Discontinued(St op Taking at Discharge) clopidogreL (PLAVIX) 75 mg tablet Take 1 tablet (75 mg total) by mouth daily. 08/03/19 24 025 Discontinued(St op Taking at Discharge) Active Problems Problem Noted Date Diagnosed Date Chronic blood loss anemia 09/20/2024 Drug therapy 09/05/2024 Gastrointestinal hemorrhage, unspecified gastrointestinal hemorrhage type 08/24/2024 CHF (congestive heart failure) ([facility] V24, [facility] V28) 08/24/2024 CAD (coronary artery disease) 08/24/2024 Liver disease 08/24/2024 Chronic obstructive pulmonar y disease ([facility] V24, [facility] V28) 08/24/2024 Chronic renal impairment, st age 2 (moderate) ([facility] V24, [facility] V28) 08/24/2024 Dysrhythmias 08/24/2024 BRBPR (bright red blood per rectum) 07/29/2024 BPH (benign prostatic hyperplasia) 07/17/2024 Chronic respiratory failure with hypoxia ([facility] V24, [facility] V28) 07/17/2024 Clear cell carcinoma of kidney ([facility] V24, [facility] V28) 07/17/2024 Dyslipidemia 07/17/2024 (HFpEF) heart failure with p reserved ejection fraction ([facility] V24, [facility] V28) 07/17/2024 COPD with emphysema ([facility] V24, [facility] V28) 0 07/17/2024 CRF (chronic renal failure) 06/16/2024 Iron deficiency 05/27/2024 Anemia, unspecified type 05/24/2024 Myelodysplastic syndrome ([facility] V24, [facility] V 28) 04/06/2024 Diabetes type 2, controlled ([facility] V24, [facility] V28) 01/25/2024 COPD (chronic obstructive pu lmonary disease) [place] [place], [facility] V28) 01/25/2024 Benign hypertensive renal disease 11/26/2020 Stage 3a chronic kidney disease ([facility] [place], [facility] V28) 11/26/2020 Depressive disorder 01/01/2007 Congestive heart failure ([facility] [place], [facility] V 28) 08/10/2006 Overview (09/20/2024): EF 25-30% echo 07/08, cath negative IMO update Atrial fibrillation ([facility] [place], [facility] V28) 0 07/18/2005 Malaise and fatigue 07/18/2005 Obesity, unspecified 07/18/2005 Alcohol abuse 05/05/2005 Essential hypertension, benign 05/05/2005 Encounters Date Type Department Care Team Description 09/19/2024 8:22 AM EDT Hospital Encounter [facility] [address] [place] [phone] Johny Bennett MD Chronic renal failure, stage 3 (moderate), unspecified whether stage 3a or 3b CKD ([facility] [place], [facility] V28) (Primary Dx); Anemia, unspecified type; Drug therapy 09/13/2024 Telephone Gastroenterology - [address] [phone] Jesus Beasley MD 09/12/2024 8:14 AM EDT - 09/12/2024 11:59 PM EDT Hospital Encounter [facility] [address] [place] [address] [phone] Johny Bennett MD Chronic renal failure, stage 3 (moderate), unspecified whether stage 3a or 3b CKD ([facility] [place], [facility] V28) (Primary Dx); Anemia, unspecified type; Drug therapy Discharge Disposition: Home or Self Care 09/05/2024 8:12 AM EDT - 09/05/2024 11:59 PM EDT Hospital Encounter [facility] [address] [place] [phone] Johny Bennett MD Chronic renal failure, stage 3 (moderate), unspecified whether stage 3a or 3b CKD (CMS/HCC V24, [facility] V28) (Primary Dx); Anemia, unspecified type Discharge Disposition: Home or Self Care 08/29/2024 Telephone Gastroenterology - [address] [phone] Geena Connor [place] 08/24/2024 3:30 PM EDT Anesthesia Event Endoscopy [address] [place] [phone] Warren Polanco MD Chang, Ling, CRNA 08/23/2024 9:04 PM EDT - 08/30/2024 3:06 PM EDT Hospital Encounter Intermediate Care Unit B [address] [place] [phone] Jass Martino MD Rasul, Yar M, MD Bell, Alistair A, MD Nasser, Nada S, MD Gastrointestinal hemorrhage, unspecified gastrointestinal hemorrhage type (Primary Dx); BRBPR (bright red blood per rectum); GAVE (gastric antral vascular ectasia); Myelodysplastic syndrome ([facility] V24, [facility] V28) Discharge Disposition: Home-Health Care [facility] 08/22/2024 8:21 AM EDT - 08/22/2024 11:59 PM EDT Hospital Encounter Infusion Center [address] [place] [phone] Johny Bennett MD Chronic renal failure, stage 3 (moderate), unspecified whether stage 3a or 3b CKD (CMS/HCC V24, CMS/HCC V28) (Primary Dx); Anemia, unspecified type Discharge Disposition: Home or Self Care 08/16/2024 8:08 AM EDT - 08/16/2024 11:59 PM EDT Hospital Encounter Infusion Center [address] [place] [phone] Jhony Bennett MD Myelodysplastic syndrome (CMS/HCC V24, [facility] V28) (Primary Dx); Anemia, unspecified type; Iron deficiency Discharge Disposition: Home or Self Care 08/15/2024 8:07 AM EDT - 08/15/2024 11:59 PM EDT Hospital Encounter Infusion Center [address] [place] [phone] Johny Bennett MD Chronic renal failure, stage 3 (moderate), unspecified whether stage 3a or 3b CKD (CMS/HCC V24, [facility] V28) (Primary Dx); Anemia, unspecified type; Anemia, unspecified Discharge Disposition: Home or Self Care 08/11/2024 11:00 AM EDT - 08/11/2024 11:59 PM EDT Hospital Encounter CT Scan [address] [place] [phone] Lung nodules Discharge Disposition: Home or Self Care 08/09/2024 9:23 AM EDT - 08/09/2024 11:59 PM EDT Hospital Encounter Infusion Center [address] [place] [phone] Johny Bennett MD Myelodysplastic syndrome ([facility] V24, [facility] V28) (Primary Dx); Anemia, unspecified type; Iron deficiency Discharge Disposition: Home or Self Care 08/08/2024 12:58 PM EDT - 08/08/2024 11:59 PM EDT Hospital Encounter Infusion Center [address] [place] [phone] Johny Bennett MD Anemia, unspecified type (Primary Dx); Chronic renal failure, stage 3 (moderate), unspecified whether stage 3a or 3b CKD (CMS/HCC V24, [facility] V28); Anemia, unspecified Discharge Disposition: Home or Self Care 08/02/2024 9:47 AM EST Anesthesia Event Endoscopy [address] [place] [phone] Warren Polanco MD 07/29/2024 9:03 AM EST - 08/02/2024 12:18 PM EST Hospital Encounter Medical Surgical Unit [address] [place] [phone] Hector Hilario MD Flores, Carlos M, MD Zipagan, James T, MD Alam, Aroosa, MD Acute GI bleeding (Primary Dx); BRBPR (bright red blood per rectum); Acute on chronic anemia; Hypokalemia; Myelodysplastic syndrome ([facility]/HCC V24, CMS/HCC V28); Chronic renal failure, stage 3a ([facility]/HCC V24, [facility]/HCC V28) Discharge Disposition: Home-Health Care [facility] 07/28/2024 10:15 AM EST Office Visit Hematology Oncology [address] [place] [phone] Johny Bennett MD Myelodysplastic syndrome ([facility]/HCC V24, [facility] V28) (Primary Dx); Iron deficiency 07/26/2024 9:30 AM EST - 07/26/2024 11:59 PM EST Hospital Encounter [address] [phone] Johny Bennett MD Myelodysplastic syndrome ([facility] V24, [facility] V28) (Primary Dx) Discharge Disposition: Home or Self Care 07/25/2024 9:30 AM EST - 07/25/2024 11:59 PM EST Hospital Encounter [address] [phone] Johny Bennett MD Chronic renal failure, stage 3 (moderate), unspecified whether stage 3a or 3b CKD ([facility]/HCC V24, [facility] V28) (Primary Dx); Anemia, unspecified type Discharge Disposition: Home or Self Care 07/18/2024 9:30 AM EST - 07/18/2024 11:59 PM EST Hospital Encounter [address] [phone] Johny Bennett MD Chronic renal failure, stage 3 (moderate), unspecified whether stage 3a or 3b CKD ([facility]/HCC V24, [facility]/HCC V28) (Primary Dx); Anemia, unspecified type Discharge Disposition: Home or Self Care 07/15/2024 11:45 AM EST Office Visit Pulmonolgy - [place] [address] [phone] Jessica Neal MD Lung nodules (Primary Dx); Adrenal nodule ([facility] V24); Chronic obstructive pulmonary disease, unspecified COPD type ([facility] V24, [facility] V28); Bronchiectasis without complication ([facility] V24, [facility] V28); Ex-smoker; CHRISTINE (obstructive sleep apnea) 07/12/2024 9:26 AM EST - 07/12/2024 11:59 PM EST Hospital Encounter [address] [phone] Johny Bennett MD Myelodysplastic syndrome ([facility] [place], [facility] V28) (Primary Dx) Discharge Disposition: Home or Self Care 07/11/2024 9:30 AM EST - 07/11/2024 11:59 PM EST Hospital Encounter [facility] [address] [place] [phone] Johny Bennett MD Chronic renal failure, stage 3 (moderate), unspecified whether stage 3a or 3b CKD ([facility] [place], [facility] V28) (Primary Dx); Anemia, unspecified type Discharge Disposition: Home or Self Care 07/05/2024 1:11 PM EST - 07/05/2024 11:59 PM EST Hospital Encounter [facility] [address] [place] [phone] Johny Bennett MD Myelodysplastic syndrome ([facility] V24, [facility] V28) (Primary Dx) Discharge Disposition: Home or Self Care 07/04/2024 11:00 AM EST - 07/04/2024 11:59 PM EST Hospital Encounter [address] [phone] Chronic renal failure, stage 3 (moderate), unspecified whether stage 3a or 3b CKD (CMS/HCC V24, [facility] [place]) (Primary Dx); Anemia, unspecified type Discharge Disposition: Home or Self Care 06/27/2024 9:27 AM EST - 06/27/2024 11:59 PM EST Hospital Encounter Infusion Center [address] [place] [phone] Johny Bennett MD Myelodysplastic syndrome ([facility] V24, [facility] V28) (Primary Dx) Discharge Disposition: Home or Self Care 06/27/2024 [facility] [address] [place] [phone] Johny Bennett MD 06/24/2024 12:57 PM EST - 06/24/2024 11:59 PM EST Hospital Encounter [address] [phone] Johny Bennett MD Anemia, unspecified type (Primary Dx); Chronic renal failure, stage 3 (moderate), unspecified whether stage 3a or 3b CKD ([facility] [place], [facility] V[facility]) Discharge Disposition: Home or Self Care from Last 3 Months Immunizations Name Administration Dates Next Due [employer] (ages 12 & older) ANALILIA S-CoV-2 COVID-19, mRNA, LNP-S, javier-sucrose, preservative free 01/24/2022 Pfizer SARS-CoV-2 COVID-19, mRNA, LNP-S, preservative free 03/12/2021,08/24/2020,08/03/2020 Surgical History Surgery Date Site/Laterality Comments NEPHRECTOMY Right PROCEDURE:NEPHRECTOMY WATCHMAN IMPLANT TOTAL HIP ARTHROPLASTY Right TRANSURETHRAL RESECTION OF PROSTATE BONE MARROW BIOPSY Medical History Medical History Date Comments History of kidney cancer DX:Hist ory of kidney cancer CHF (congestive heart failur e) ([facility] [place], [facility] V28) DX:CHF (congestive heart andreea lure) ([facility]) Diabetes mellitus ([facility] [place], [facility] V28) DX:Diabetes mellitus ([facility]) COPD (chronic obstructive pu lmonary disease) ([facility] [place], [facility] V28) DX:COPD (chronic o bstructive pulmonary disease) (HCC) Hypertension DX:Hypertension BPH (benign prostatic hyperplasia) DX:BPH (benign prostatic hyperplasia) Essential hypertension, benign 05/05/2005 D X:Essential hypertension, benign Alcohol abuse, unspecified 05/05/2005 DX:Al cohol abuse, unspecified Arteritis, unspecified ([facility] [place]) DX:Arteritis, unspecified (HCC) Congestive heart failure, unspecified 08/10/2006 DX:Congestive heart failure, unspecified; COMMENT: EF 25-30% echo 07/08 Pulmonary hypertension ([facility] V24, [facility] V[facility]) DX:Pulmonary hypertension (H CC) CAD (coronary artery disease) Chronic hypoxic respiratory failure ([facility] [place], [facility] V28) on 2L O2 Myelodysplastic syndrome ( [facility], [facility] V28[facility] Atrial fibrillation ([facility] [place], [facility] V28) Hyperlipidemia Renal cancer ([facility] [place], [facility] V28) CKD (chronic kidney disease) GI bleed AVM (arteriovenous malformation) Liver cirrhosis ([facility] [place] , [facility] V28) Family History Medical History Relation Name Comments [...] Info) Description 09/26/2024 8:30 AM EDT Appointment Infusion Center [address] [facility] 2nd [place] [phone] 09/28/2024 8:00 AM EDT Office Visit Gastroenterology - [address] [phone] Kathleen Sethi PA [address] [phone] 10/05/2024 7:45 AM EDT Clinical Support Gastroenterology - [address] [phone] 10/07/2024 10:30 AM EDT Office Visit Gastroenterology - [address] [phone] Isela Ibanez NP [address] [address] 11/03/2024 10:15 AM EDT Office Visit Hematology Oncology [address] [place] [phone] Johny Bennett MD [address] [place] [address] 11/17/2024 10:00 AM EDT Office Visit Pulmonolgy - [place] [address] [phone] Jessica Neal MD 175 [facility] [address] [place] [address] Health Maintenance Due Date Last Done Comments [...] Diabetes: Blood Sugar Control Test (HGBA1C) 03/10/2024 COVID-19 Vaccine (9 - Pfizer risk season) 2024 04/08/2024, 08/15/2023, 02/25/2023, Additional history exists Colorectal Cancer Screening: Colonoscopy 11/09/2024 11/09/2014 Diabetes: Annual GFR (Glomerular Filtration Rate) 08/30/2025 08/30/2024, 08/29/2024, 08/28/2024, Additional history exists Hypertension/CHF/CAD Annual BMP Blood Test 08/30/2025 08/30/2024, 08/29/2024, 08/28/2024, Additional history exists Falls Risk Assessment 09/12/2025 09/12/2024 RSV Immunization Adult Patients Completed 05/15/2023 Zoster Vaccines Completed 08/15/2023, 05/15/2023 Influenza Vaccine Completed 04/08/2024, , 01/24/2022, Additional [...] Diagnosis Comments CBC WITH AUTO DIFFERENTIAL STAT 09/19/2024 8:16 AM EDT Chronic renal failure, stage 3 (moderate), unspecified whether stage 3a or 3b CKD (CMS/HCC V24, CMS/HCC V28) Anemia, unspecified type Drug therapy TYPE AND SCREEN STAT 09/19/2024 8:16 AM EDT Anemia, unspecified CBC AND DIFFERENTIAL STAT 09/19/2024 8:16 AM EDT Chronic renal failure, stage 3 (moderate), unspecified whether stage 3a or 3b CKD (CMS/HCC V24, CMS/HCC V28) Anemia, unspecified type Drug therapy CBC WITH AUTO DIFFERENTIAL STAT 09/12/2024 8:00 AM EDT Chronic renal failure, stage 3 (moderate), unspecified whether stage 3a or 3b CKD (CMS/HCC V24, CMS/HCC V28) Anemia, unspecified type Drug therapy TYPE AND SCREEN STAT 09/12/2024 8:00 AM EDT Anemia, unspecified CBC AND DIFFERENTIAL STAT 09/12/2024 8:00 AM EDT Chronic renal failure, stage 3 (moderate), unspecified whether stage 3a or 3b CKD (CMS/HCC V24, CMS/HCC V28) Anemia, unspecified type Drug therapy CBC WITH AUTO DIFFERENTIAL STAT 09/05/2024 7:51 AM EDT Chronic renal failure, stage 3 (moderate), unspecified whether stage 3a or 3b CKD (CMS/HCC V24, CMS/HCC V28) Anemia, unspecified type TYPE AND SCREEN STAT 09/05/2024 7:51 AM EDT Anemia, unspecified CBC AND DIFFERENTIAL STAT 09/05/2024 7:51 AM EDT Chronic renal failure, stage 3 (moderate), unspecified whether stage 3a or 3b CKD (CMS/HCC V24, CMS/HCC V28) Anemia, unspecified type TRANSFERRIN Routine 09/05/2024 7:51 AM EDT Chronic renal failure, stage 3 (moderate), unspecified whether stage 3a or 3b CKD (CMS/HCC V24, CMS/HCC V28) Anemia, unspecified type FERRITIN Routine 09/05/2024 7:51 AM EDT Chronic renal failure, stage 3 (moderate), unspecified whether stage 3a or 3b CKD (CMS/HCC V24, CMS/HCC V28) Anemia, unspecified type ECG ANNOTATED 08/31/2024 ECG [...] (CMS/HCC V24, CMS/HCC V28) Anemia, unspecified type Anemia, unspecified CBC WITH AUTO DIFFERENTIAL STAT 08/22/2024 8:13 AM EDT Chronic renal failure, stage 3 (moderate), unspecified whether stage 3a or 3b CKD (CMS/HCC V24, CMS/HCC V28) Anemia, unspecified type CBC AND DIFFERENTIAL STAT 08/22/2024 8:13 AM EDT Chronic renal failure, stage 3 (moderate), unspecified whether stage 3a or 3b CKD (CMS/HCC V24, CMS/HCC V28) Anemia, unspecified type CBC WITH AUTO DIFFERENTIAL STAT 08/15/2024 8:28 AM EDT Chronic renal failure, stage 3 (moderate), unspecified whether stage 3a or 3b CKD (CMS/HCC V24, CMS/HCC V28) Anemia, unspecified type TYPE AND SCREEN STAT 08/15/2024 8:28 AM EDT Anemia, unspecified CBC AND DIFFERENTIAL STAT 08/15/2024 8:28 AM EDT Chronic renal failure, stage 3 (moderate), unspecified whether stage 3a or 3b CKD (CMS/HCC V24, CMS/HCC V28) Anemia, unspecified type CT CHEST WO CONTRAST Routine 08/11/2024 11:52 AM EDT Lung nodules CBC WITH AUTO DIFFERENTIAL STAT 08/08/2024 1:15 PM EDT Chronic renal failure, stage 3 (moderate), unspecified whether stage 3a or 3b CKD (CMS/HCC V24, CMS/HCC V28) Anemia, unspecified type TYPE AND SCREEN STAT 08/08/2024 1:15 PM EDT Anemia, unspecified CBC AND DIFFERENTIAL STAT 08/08/2024 1:15 PM EDT Chronic renal failure, stage 3 (moderate), unspecified whether stage 3a or 3b CKD (CMS/HCC V24, CMS/HCC V28) Anemia, unspecified type EGD Routine 08/02/2024 10:10 [...] (chronic kidney disease) CHF (congestive heart failure) (CMS/HCC V24, CMS/HCC V28) Liver cirrhosis (CMS/HCC V24, CMS/HCC V28) COMPREHENSIVE METABOLIC PANEL Routine 07/27/2024 1:53 PM EST Anemia CKD (chronic kidney disease) CHF (congestive heart failure) (CMS/HCC V24, CMS/HCC V28) Liver cirrhosis (CMS/HCC V24, CMS/HCC V28) CBC AND DIFFERENTIAL Routine 07/27/2024 1:53 PM EST Anemia CKD (chronic kidney disease) CHF (congestive heart failure) (CMS/HCC V24, CMS/HCC V28) Liver cirrhosis (CMS/HCC V24, CMS/HCC V28) TRANSFUSE RED BLOOD CELLS Routine 07/26/2024 1:03 PM EST Myelodysplastic syndrome (CMS/HCC V24, CMS/HCC V28) TRANSFUSE RED BLOOD CELLS Routine 07/26/2024 10:24 AM EST Myelodysplastic syndrome (CMS/HCC V24, CMS/HCC V28) PREPARE RBC Routine 07/26/2024 9:51 AM EST Myelodysplastic syndrome (CMS/HCC V24, CMS/HCC V28) CBC WITH AUTO DIFFERENTIAL STAT 07/25/2024 9:33 AM EST Chronic renal failure, stage 3 (moderate), unspecified whether stage 3a or 3b CKD (CMS/HCC V24, CMS/HCC V28) Anemia, unspecified type TYPE AND SCREEN STAT 07/25/2024 9:33 AM EST Anemia, unspecified CBC AND DIFFERENTIAL STAT 07/25/2024 9:33 AM EST Chronic renal failure, stage 3 (moderate), unspecified whether stage 3a or 3b CKD (CMS/HCC V24, CMS/HCC V28) Anemia, unspecified type CBC WITH AUTO DIFFERENTIAL STAT 07/18/2024 9:43 AM EST Chronic renal failure, stage 3 (moderate), unspecified whether stage 3a or 3b CKD (CMS/HCC V24, CMS/HCC V28) Anemia, unspecified type TYPE AND SCREEN STAT 07/18/2024 9:43 AM EST Anemia, unspecified CBC AND DIFFERENTIAL STAT 07/18/2024 9:43 AM EST Chronic renal failure, stage 3 (moderate), unspecified whether stage 3a or 3b CKD (CMS/HCC V24, CMS/HCC V28) Anemia, unspecified type TRANSFUSE RED BLOOD CELLS Routine 07/12/2024 10:09 AM EST Myelodysplastic syndrome (CMS/HCC V24, CMS/HCC V28) PREPARE RBC Routine 07/12/2024 8:32 AM EST Myelodysplastic syndrome (CMS/HCC V24, CMS/HCC V28) TYPE AND SCREEN Routine 07/11/2024 9:26 AM EST Chronic renal failure, stage 3 (moderate), unspecified whether stage 3a or 3b CKD (CMS/HCC V24, CMS/HCC V28) Anemia, unspecified CBC WITH AUTO DIFFERENTIAL STAT 07/11/2024 9:26 AM EST Chronic renal failure, stage 3 (moderate), unspecified whether stage 3a or 3b CKD (CMS/HCC V24, CMS/HCC V28) Anemia, unspecified type CBC AND DIFFERENTIAL STAT 07/11/2024 9:26 AM EST Chronic renal failure, stage 3 (moderate), unspecified whether stage 3a or 3b CKD (CMS/HCC V24, CMS/HCC V28) Anemia, unspecified type PREPARE RBC Routine 07/05/2024 10:01 AM EST Myelodysplastic syndrome (CMS/HCC V24, CMS/HCC V28) DIGOXIN LEVEL Routine 07/04/2024 11:15 AM EST Chronic atrial fibrillation (CMS/HCC V24, CMS/HCC V28) CBC WITH AUTO DIFFERENTIAL Routine 07/04/2024 11:13 AM EST Chronic renal failure, stage 3 (moderate), unspecified whether stage 3a or 3b CKD (CMS/HCC V24, CMS/HCC V28) Anemia, unspecified type TYPE AND SCREEN Routine 07/04/2024 11:13 AM EST Anemia, unspecified ERYTHROPOIETIN Routine 07/04/2024 11:13 AM EST Chronic renal failure, stage 3 (moderate), unspecified whether stage 3a or 3b CKD (CMS/HCC V24, CMS/HCC V28) Anemia, unspecified type VITAMIN B12 Routine 07/04/2024 11:13 AM EST Chronic renal failure, stage 3 (moderate), unspecified whether stage 3a or 3b CKD (CMS/HCC V24, CMS/HCC V28) Anemia, unspecified type FOLATE Routine 07/04/2024 11:13 AM EST Chronic renal failure, stage 3 (moderate), unspecified whether stage 3a or 3b CKD (CMS/HCC V24, CMS/HCC V28) Anemia, unspecified type TRANSFERRIN Routine 07/04/2024 11:13 AM EST Chronic renal failure, stage 3 (moderate), unspecified whether stage 3a or 3b CKD (CMS/HCC V24, CMS/HCC V28) Anemia, unspecified type FERRITIN Routine 07/04/2024 11:13 AM EST Chronic renal failure, stage 3 (moderate), unspecified whether stage 3a or 3b CKD (CMS/HCC V24, CMS/HCC V28) Anemia, unspecified type IRON Routine 07/04/2024 11:13 AM EST Chronic renal failure, stage 3 (moderate), unspecified whether stage 3a or 3b CKD (CMS/HCC V24, CMS/HCC V28) Anemia, unspecified type CREATININE, SERUM Routine 07/04/2024 11: 13 AM EST Chronic renal failure, stage 3 (moderate), unspecified whether stage 3a or 3b CKD (CMS/HCC V24, CMS/HCC V28) Anemia, unspecified type CBC AND DIFFERENTIAL Routine 07/04/2024 11:13 AM EST Chronic renal failure, stage 3 (moderate), unspecified whether stage 3a or 3b CKD (CMS/HCC V24, CMS/HCC V28) Anemia, unspecified type PREPARE RBC Routine 06/27/2024 9:13 AM EST Myelodysplastic syndrome (CMS/HCC V24, CMS/HCC V28) PREPARE RBC Routine 06/24/2024 3:02 PM EST Myelodysplastic syndrome (CMS/HCC V24, CMS/HCC V28) CBC WITH AUTO DIFFERENTIAL Routine 06/24/2024 1:33 PM EST Chronic renal failure, stage 3 (moderate), unspecified whether stage 3a or 3b CKD (CMS/HCC V24, CMS/[facility] V28) Anemia, unspecified type CBC AND DIFFERENTIAL Routine 06/24/2024 1:33 PM EST Chronic renal failure, stage 3 (moderate), unspecified whether stage 3a or 3b CKD (CMS/HCC V24, CMS/[facility] V28) Anemia, unspecified type TYPE AND SCREEN Routine 06/24/2024 1:33 PM EST Anemia, unspecified type EXTERNAL COLONOSCOPY REPORT Routine 11/09/2014 1:00 PM EDT from Last 3 Months or Most Recently Relevant to Health Maintenance Results * (ABNORMAL) CBC auto differential (09/19/2024 8:16 AM EDT) Only the most recent of23 resultswithin the time period is included. WBC 4.8 4.8 - 10.8 K/mcL LAB HEMETOLOGY METHOD 09/19/2024 8:35 AM [facility] RBC 3.00(L) 4.50 - 5.50 M/mcL LAB HEMETOLOGY METHOD 09/19/2024 8:35 AM [facility] Hemoglobin 9.4(L) 13.5 - 17.5 g/dL LAB HEMETOLOGY METHOD 09/19/2024 8:35 AM [facility] Hematocrit 31.3(L) 42.0 - 54.0 % LAB HEMETOLOGY METHOD 09/19/2024 8:35 AM [facility] MCV 103.6(H) 79.0 - 98.0 FL LAB HEMETOLOGY METHOD 09/19/2024 8:35 AM [facility] MCH 31.1 27.0 - 32.0 pcg LAB HEMETOLOGY METHOD 09/19/2024 8:35 AM [facility] MCHC 30.0(L) 32.0 - 37.0 g/dL LAB HEMETOLOGY METHOD 09/19/2024 8:35 AM [facility] RDW 21.5(H) 11.0 - 15.0 % LAB HEMETOLOGY METHOD 09/19/2024 8:35 AM [facility] Platelets 210 130 - 400 K/mcL LAB HEMETOLOGY METHOD 09/19/2024 8:35 AM [facility] MPV 10.0 7.0 - 11.0 FL LAB HEMETOLOGY METHOD 09/19/2024 8:35 AM [facility] NRBC 0.0 <1.0 % LAB HEMETOLOGY METHOD 09/19/2024 8:35 AM [facility] NRBC Absolute 0.00 <0.10 K/mcL LAB HEMETOLOGY METHOD 09/19/2024 8:35 AM [facility] Neutrophils Relative 69.6 % LAB HEMETOLOGY METHOD 09/19/2024 8:35 AM [facility] Lymphocytes Relative 14.9 % LAB HEMETOLOGY METHOD 09/19/2024 8:35 AM [facility] Monocytes Relative 10.3 % LAB HEMETOLOGY METHOD 09/19/2024 8:35 AM [facility] Eosinophils Relative 4.0 % LAB HEMETOLOGY METHOD 09/19/2024 8:35 AM [facility] Basophils Relative 0.6 % LAB HEMETOLOGY METHOD 09/19/2024 8:35 AM [facility] Immature Granulocytes Relative 0.6 % LAB HEMETOLOGY METHOD 09/19/2024 8:35 AM [facility] Neutrophils Absolute 3.32 1.50 - 7.00 K/mcL LAB HEMETOLOGY METHOD 09/19/2024 8:35 AM EDT [facility] Lymphocytes Absolute 0.71(L) 1.00 - 5.00 K/[facility] LAB HEMETOLOGY METHOD 09/19/2024 8:35 AM EDT [facility] Monocytes Absolute 0.49 0.20 - 1.00 K/[facility] LAB HEMETOLOGY METHOD 09/19/2024 8:35 AM EDT [facility] Eosinophils Absolute 0.19 0.00 - 0.50 K/[facility] LAB HEMETOLOGY METHOD 09/19/2024 8:35 AM EDT [facility] Basophils Absolute 0.03 0.00 - 0.20 K/[facility] LAB HEMETOLOGY METHOD 09/19/2024 8:35 AM EDT [facility] Immature Granulocytes Absolute 0.03 0.00 - 0.03 K/[facility] LAB HEMETOLOGY METHOD 09/19/2024 8:35 AM EDT [facility] Blood Venous blood specimen / Unknown Venipuncture / Unknown 09/19/2024 8:16 AM EDT 09/19/2024 8:24 AM EDT Johny Bennett MD LAB BLOOD ORDERABLES Final R esult [facility] [address] [place] [address], * Type and screen (09/19/2024 8:16 AM EDT) Only the most recent of13 resultswithin the time period is included. ABO Group O 09/19/2024 9:34 AM EDT [facility] Rh Type Positive 09/19/2024 9:34 AM EDT [facility] Antibody Screen Negative 09/19/2024 9:34 AM EDT [facility] Blood Venous blood specimen / Unknown Venipuncture / Unknown 09/19/2024 8:16 AM EDT 09/19/2024 8:24 AM EDT Johny Bennett MD LAB BLOOD BANK TEST ORDERABL ES Final Result Performing Organization Address City/[facility]/ZIP Co de Phone Number [facility] [address] [place] [address], [place] [phone] * Transferrin (09/05/2024 7:51 AM EDT) Only the most recent of2 resultswithin the time period is included. Transferrin 232 200 - 360 mg/dL 09/07/2024 3:46 AM EDT [facility] Comment: Test performed at [facility], [address], [place], [place] ??[address] ? [phone] Brenda Murray MD, PhD - Property Utilization Manager Blood Venous blood specimen / Unknown Venipuncture / Unknown 09/05/2024 7:51 AM EDT 09/05/2024 8:08 AM EDT Johny Bennett MD LAB BLOOD ORDERABLES Final R esult Performing Organization Address [facility] Co de Phone Number [facility] [address] [place] [address] * Ferritin (09/05/2024 7:51 AM EDT) Only the most recent of2 resultswithin the time period is included. Ferritin 262 26 - 388 ng/mL LAB CHEMISTRY METHOD 09/05/2024 8:33 AM EDT [facility] Blood Venous blood specimen / Unknown Venipuncture / Unknown 09/05/2024 7:51 AM EDT 09/05/2024 8:08 AM EDT Johny Bennett MD LAB BLOOD ORDERABLES Final R esult Performing Organization Address City/[facility]/ZIP Co de Phone Number [facility] [address] [place] [address], * ECG-Outside (08/31/2024) Only the most recent of2 resultswithin the time period is included. Provider Onbase ECG ORDERABLES Final Result * ECG-Annotated (08/31/2024) Provider Onbase MD ECG ORDERABLES Final Result * (ABNORMAL) Hemoglobin and hematocrit (08/30/2024 12:37 PM EDT) Only the most recent of5 resultswithin the time period is included. Hemoglobin 8.4(L) 13.5 - 17.5 g/dL LAB HEMETOLOGY METHOD 08/30/2024 12:48 PM EDT [facility] Hematocrit 27.2(L) 42.0 - 54.0 % LAB HEMETOLOGY METHOD 08/30/2024 12:48 PM EDT [facility] Blood Venous blood specimen / Unknown Venipuncture / Unknown 08/30/2024 12:37 PM EDT 08/30/2024 12:44 PM EDT Kaiser Francis MD LAB BLOOD ORDERABLES Final Resu lt [facility] [address] [place] [address], * (ABNORMAL) POCT Glucose, blood (08/30/2024 11:50 AM EDT) Only the most recent of28 resultswithin the time period is included. Glucose POCT 141(H) 70 - 100 mg/dL 08/30/2024 11:51 AM EDT [facility] Blood Capillary blood specimen / Unknown 08/30/2024 11:50 AM EDT 08/30/2024 11:52 AM EDT us Kaiser Francis MD LAB POINT OF CARE TE ST DOCKED DEVICE UNSOLICITED RESULTS Final Result [facility] [address] [place] [address], * (ABNORMAL) Basic metabolic panel (08/30/2024 5:21 AM EDT) Only the most recent of9 resultswithin the time period is included. Sodium 136 133 - 145 mmol/L LAB CHEMISTRY METHOD 08/30/2024 7:05 AM [facility] Potassium 4.0 3.5 - 5.5 mmol/L LAB CHEMISTRY METHOD 08/30/2024 7:05 AM [facility] Chloride 95(L) 96 - 110 mmol/L LAB CHEMISTRY METHOD 08/30/2024 7:05 AM [facility] CO2 38(H) 21 - 32 mmol/L LAB CHEMISTRY METHOD 08/30/2024 7:05 AM [facility] Anion Gap 3 3 - 11 LAB CHEMISTRY METHOD 08/30/2024 7:05 AM [facility] Glucose 111(H) 70 - 100 mg/dL LAB CHEMISTRY METHOD 08/30/2024 7:05 AM [facility] BUN 28(H) 5 - 25 mg/dL LAB CHEMISTRY METHOD 08/30/2024 7:05 AM [facility] Creatinine 1.61(H) 0.70 - 1.30 mg/dL LAB CHEMISTRY METHOD 08/30/2024 7:05 AM [facility] eGFR 44(L) >=60 mL/min/1. 73m2 LAB CHEMISTRY METHOD 08/30/2024 7:05 AM [facility] Comment:Calculation based on the??Chronic Kidney Disease Epidemiology Collaboration (CKD-EPI) equation refit??without adjustment for race. BUN/Creatinine Ratio 17.4 LAB CHEMISTRY METHOD 08/30/2024 7:05 AM EDT [facility] Calcium 8.1(L) 8.5 - 10.5 mg/dL LAB CHEMISTRY METHOD 08/30/2024 7:05 AM EDT [facility] Blood Venous blood specimen / Unknown Venipuncture / Unknown 08/30/2024 5:21 AM EDT 08/30/2024 6:11 AM EDT Yevgeniy Horton MD LAB BLOOD ORDERABLES Final Re sult [facility] [address] [place] [address], [place] [phone] * ECG 12 lead (08/29/2024 2:13 PM EDT) Only the most recent of3 resultswithin the time period is included. Ventricular Rate ECG 65 BPM GEMUSE Atrial Rate 170 BPM GEMUSE QRS Duration 110 ms GEMUSE Q-T Interval 442 ms GEMUSE QTc 459 ms GEMUSE R [place] 21 degrees GEMUSE T [place] 20 degrees GEMUSE ECG Interpretation Atrial fibrillation Low voltage QRS Nonspecific T wave abnormality Abnormal ECG When compared with ECG of 25-AUG-2024 12:38, Nonspecific T wave abnormality no longer evident in Anterior leads Confirmed by NAVIN NOLAN ([id number]) on 08/30/2024 1:32:14 PM GEMUSE 08/29/2024 2:13 PM EDT 08/30/2024 1:32 PM EDT Kaiser Francis MD ECG ORDERABLES Final Result Performing Organization Address City/[facility]/ZIP Co de Phone Number GEM[facility] * Magnesium (08/29/2024 5:26 AM EDT) Only the most recent of4 resultswithin the time period is included. Magnesium 2.4 1.9 - 2.6 mg/dL LAB CHEMISTRY METHOD 08/29/2024 7:00 AM EDT [facility] Blood Venous blood specimen / Unknown Venipuncture / Unknown 08/29/2024 5:26 AM EDT 08/29/2024 6:14 AM EDT Yevgeniy Horton MD LAB BLOOD ORDERABLES Final Re sult Performing Organization Address [facility]/ZIP Co de Phone Number [facility] [address] [place] [address], [place] [phone] * Digoxin level (08/29/2024 5:26 AM EDT) Only the most recent of3 resultswithin the time period is included. Digoxin Lvl 1.0 0.5 - 2.0 ng/mL LAB CHEMISTRY METHOD 08/29/2024 12:52 PM EDT [facility] Blood Venous blood specimen / Unknown Venipuncture / Unknown 08/29/2024 5:26 AM EDT 08/29/2024 6:14 AM EDT Kaiser Francis MD LAB BLOOD ORDERABLES Final Resu lt Performing Organization Address [facility]/ZIP Co de Phone Number [facility] [address] [place] [address], [place] [phone] * CT Angio Abdomen Pelvis wo and/or [...] by: Steve Lopez MD on 08/26/2024 21:39:14 Navdeep Gardner MD IMG CT PROCEDURES Final Result * Transfuse RBC, Leukoreduced (08/26/2024 4:49 PM EDT) Only the most recent of13 resultswithin the time period is included. Navdeep Gardner MD BLOOD TRANSFUSION ORDERABLES Fin al Result * Prepare RBC: 2 Units, Leukoreduced (08/26/2024 9:08 AM EDT) Only the most recent of9 resultswithin the time period is included. Product Code [id number] 08/26/2024 10:16 AM EDT [facility] Unit Number [id number] 08/27/19 10:16 AM [facility] Crossmatch Compatible 08/26/2024 9:57 AM EDT [facility] Dispense Status Transfused 08/26/2024 10:16 AM [facility] Unit ABO Rh OPOS 08/26/2024 10:16 AM [facility] Unit Expiration Date Time [id number] 08/26/2024 10:16 AM EDT [facility] Unit Blood Type 5100 08/26/2024 10:16 AM EDT [facility] Product Code [id number] 08/26/2024 1:36 PM EDT [facility] Unit Number [id number] 08/27/19 1:36 PM EDT [facility] Crossmatch Compatible 08/26/2024 9:57 AM EDT [facility] Dispense Status Transfused 08/26/2024 1:36 PM EDT [facility] Unit ABO Rh OPOS 08/26/2024 1:36 PM EDT [facility] Unit Expiration Date Time [id number] 08/26/2024 1:36 PM EDT [facility] Unit Blood Type 5100 08/26/2024 1:36 PM EDT [facility] Blood Venous blood specimen / Unknown 08/26/2024 9:08 AM EDT 08/23/2024 9:35 PM EDT Navdeep Gardner MD BLOOD BANK PRODUCT ORDERABLES Fi nal Result [facility] [address] [place] [address], * EGD Anesthesia - MAC; [facility] ENDOSCOPY (08/24/2024 3:57 PM EDT) Only the [...] significant bleeding. Narrative 08/24/2024 3:58 PM EDT GI Patient Name: Kiran Law Procedure Date: 08/24/2024 3:27 PM Date of : 1950 Age: 74 Gender: Male Note Status: Finalized Attending MD: Gwendolyn Clarke MD, Procedure Date No Time: 08/24/2024 Procedure: ? Upper GI endoscopy Indications: ? Hematochezia Providers: ? Gwendolyn Clarke MD Referring MD: ?Graysonnacho Berrios, DO Medicines: ? General Anesthesia Complications: [...] Procedure Code(s): ? --- Professional --- ? 01181, Esophagogastroduodenoscopy, flexible, ? transoral; diagnostic, including collection of ? specimen(s) by brushing or washing, when performed ? (separate procedure) Diagnosis Code(s): ? --- Professional --- ? 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 K92.1, Melena (includes Hematochezia) CPT copyright 2020 [employer]. All rights reserved. The codes documented in this report are preliminary and upon system safety engineer review may be revised to meet current compliance requirements. Gwendolyn Clarke MD 08/24/2024 3:58:20 PM This report has been signed electronically.Gwendolyn Clarke MD Number of Addenda: 0 Note Initiated On: 08/24/2024 3:27 PM Scope In: Scope Out: ? Endoscopy Department at - [address] [place] [address], ? [place] [phone] Procedure Note Gwendolyn Clarke MD - 08/24/2024 GI Patient Name: Kiran Law Procedure Date: [...] was seen. Procedure Code(s): --- Professional --- 62469, Esophagogastroduodenoscopy, flexible, transoral; diagnostic, including collection of specimen(s) by brushing or washing, when performed (separate procedure) Diagnosis Code(s): --- Professional --- K31.819, Angiodysplasia of stomach and duodenum without bleeding K92.1, Melena (includes Hematochezia) CPT copyright 2020 [employer]. All rights reserved. The codes documented in this report are preliminary and upon system safety engineer reviewmay be revised to meet current compliance requirements. Gwendolyn Clarke MD 08/24/2024 3:58:20 PM This report has been signed electronically.Gwendolyn Clarke MD Number of Addenda: 0 Note Initiated On: 08/24/2024 3:27 PM Scope In: Scope Out: Endoscopy Department at - [address] [place] [phone] IMPRESSION: - Normal esophagus. - Gastric antral [...] of2 resultswithin the time period is included. Extra Tube Hold for add-ons. 08/24/2024 11:01 AM EDT [facility] Comment:Auto resulted. Blood Venous blood specimen / Unknown 08/24/2024 8:49 AM EDT 08/24/2024 9:44 AM EDT Navdeep Gardner MD LAB BLOOD ORDERABLES Final Resul t Performing Organization Address [facility]/ZIP Co de Phone Number [facility] [address] [place] [address], [place] [phone] * Troponin I high sensitivity (08/23/2024 11:42 PM EDT) Only the most recent of2 resultswithin the time period is included. [facility] High Sensitivity Troponin I 13 <=79 ng/L LAB CHEMISTRY METHOD 08/24/2024 12:35 AM EDT [facility] Blood Venous blood specimen / Unknown Venipuncture / Unknown 08/23/2024 11:42 PM EDT 08/23/2024 11:53 PM EDT Narrative [facility] - 08/24/2024 12:35 AM EDT High levels of biotin in samples may falsely decrease hsTroponin values. ??Use caution when interpreting hsTroponin results in patients taking biotin who exhibit renal impairment (eGFR <60) or in patients taking more than 20 mg/day of biotin. Lyric [facility] LAB BLOOD ORDERABLES Final Resu lt Performing Organization Address [facility] de Phone Number [facility] [address] [place] [address], [place] [phone] * (ABNORMAL) Protime-INR (08/23/2024 10:05 PM EDT) Only the most recent of2 resultswithin the time period is included. [facility] Protime 14.3(H) 10.6 - 13.9 sec LAB COAGULATION METHOD 08/23/2024 11:12 PM EDT [facility] INR 1.1 LAB COAGULATION METHOD 08/23/2024 11:12 PM EDT [facility] Blood Venous blood specimen / Unknown Venipuncture / Unknown 08/23/2024 10:05 PM EDT 08/23/2024 10:58 PM EDT [facility] LAB BLOOD ORDERABLES Final Resu lt Performing Organization Address [facility]/ZIP Co de Phone Number [facility] [address] [place] [address], [place] [phone] * B-type natriuretic peptide (08/23/2024 10:05 PM EDT) BNP 45 <=100 pcg/mL LAB CHEMISTRY METHOD 08/23/2024 11:39 PM EDT [facility] Blood Venous blood specimen / Unknown Venipuncture / Unknown 08/23/2024 10:05 PM EDT 08/23/2024 10:58 PM EDT Lyric [facility] LAB BLOOD ORDERABLES Final Resu lt Performing Organization Address City/[facility]/ZIP Co de Phone Number [facility] [address] [place] [address], [place] [phone] * XR Chest 1 View (08/23/2024 9:50 PM EDT) Anatomical Region Laterality Modality Body Radiographic Celeste ging 08/24/2024 8:31 AM EDT Impressions 08/24/2024 8:33 AM EDT Impression: 1. Stable cardiomegaly. 2. No active pulmonary process. Teleparesh WHITAKER ([id number]) -------- FINAL REPORT -------- Dictated By: Herlinda Posada Dictated Date: 08/24/2024 08:31 ET Assigned Physician: Herlinda Posada Reviewed and Electronically Signed By: Herlinda Posada Signed Date: 08/24/2024 08:33 ET Workstation ID: [id number] Transcribed By: Self Edit Transcribed Date: 08/24/2024 [...] Stable cardiomegaly. 2. No active pulmonary process. [employer] WHITAKER ([id number]) -------- FINAL REPORT -------- Dictated By: Herlinda Posada Dictated Date: 08/24/2024 08:31 ET Assigned Physician: Herlinda Posada Reviewed and Electronically Signed By: Herlinda Posada Signed Date: 08/24/2024 08:33 ET Workstation ID: [id number] Transcribed By: Self Edit Transcribed Date: 08/24/2024 08:31 ET us Jazmine WHITAKER IMG XR PROCEDURES Final Result * (ABNORMAL) Comprehensive metabolic panel (08/23/2024 9:21 PM EDT) Only the most recent of3 resultswithin the time period is included. Sodium 139 133 - 145 mmol/L LAB CHEMISTRY METHOD 08/23/2024 10:33 PM EDT [facility] Potassium 4.3 3.5 - 5.5 mmol/L LAB CHEMISTRY METHOD 08/23/2024 10:33 PM EDT [facility] Comment:Hemolysis present Chloride 96 96 - 110 mmol/L LAB CHEMISTRY METHOD 08/23/2024 10:33 PM EDT [facility] CO2 32 21 - 32 mmol/L LAB CHEMISTRY METHOD 08/23/2024 10:33 PM [facility] Anion Gap 11 3 - 11 LAB CHEMISTRY METHOD 08/23/2024 10:33 PM [facility] Glucose 184(H) 70 - 100 mg/dL LAB CHEMISTRY METHOD 08/23/2024 10:33 PM [facility] BUN 74(H) 5 - 25 mg/dL LAB CHEMISTRY METHOD 08/23/2024 10:33 PM [facility] Creatinine 1.82(H) 0.70 - 1.30 mg/dL LAB CHEMISTRY METHOD 08/23/2024 10:33 PM [facility] eGFR 38(L) >=60 mL/min/1. 73m2 LAB CHEMISTRY METHOD 08/23/2024 10:33 PM [facility] Comment:Calculation based on the??Chronic Kidney Disease Epidemiology Collaboration (CKD-EPI) equation refit??without adjustment for race. BUN/Creatinine Ratio 40.7 LAB CHEMISTRY METHOD 08/23/2024 10:33 PM [facility] Calcium 8.2(L) 8.5 - 10.5 mg/dL LAB CHEMISTRY METHOD 08/23/2024 10:33 PM [facility] AST (SGOT) 27 10 - 42 unit/L LAB CHEMISTRY METHOD 08/23/2024 10:33 PM [facility] ALT (SGPT) 13 10 - 60 unit/L LAB CHEMISTRY METHOD 08/23/2024 10:33 PM [facility] Alkaline Phosphatase 31(L) 42 - 121 unit/L LAB CHEMISTRY METHOD 08/23/2024 10:33 PM [facility] Total Protein 5.5(L) 6.0 - 8.0 g/dL LAB CHEMISTRY METHOD 08/23/2024 10:33 PM [facility] Albumin 3.0(L) 3.2 - 5.0 g/dL LAB CHEMISTRY METHOD 08/23/2024 10:33 PM EDT [facility] Total Bilirubin 0.5 0.0 - 1.4 mg/dL LAB CHEMISTRY METHOD 08/23/2024 10:33 PM EDT [facility] Blood Venous blood specimen / Unknown Venipuncture / Unknown 08/23/2024 9:21 PM EDT 08/23/2024 9:35 PM EDT us Wilder Willingham MD LAB BLOOD ORDERABLES Wendie l Result [facility] [address] [place] [address], * CT Chest wo Contrast (08/11/2024 11:52 [...] Signed Date: 08/11/2024 15:03 ET Workstation ID: [id number] Transcribed By: Self Edit Transcribed Date: 08/11/2024 [...] 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 WBC 6.1 4.8 - 10.8 K/mcL LAB HEMETOLOGY METHOD 07/30/2024 12:25 AM [facility] RBC 3.00(L) 4.50 - 5.50 M/mcL LAB HEMETOLOGY METHOD 07/30/2024 12:25 AM [facility] Hemoglobin 8.2(L) 13.5 - 17.5 g/dL LAB HEMETOLOGY METHOD 07/30/2024 12:25 AM [facility] Hematocrit 28.5(L) 42.0 - 54.0 % LAB HEMETOLOGY METHOD 07/30/2024 12:25 AM [facility] MCV 94.7 79.0 - 98.0 FL LAB HEMETOLOGY METHOD 07/30/2024 12:25 AM [facility] MCH 27.2 27.0 - 32.0 pcg LAB HEMETOLOGY METHOD 07/30/2024 12:25 AM [facility] MCHC 28.8(L) 32.0 - 37.0 g/dL LAB HEMETOLOGY METHOD 07/30/2024 12:25 AM EST [facility] RDW 19.3(H) 11.0 - 15.0 % LAB HEMETOLOGY METHOD 07/30/2024 12:25 AM EST [facility] Platelets 230 130 - 400 K/mcL LAB HEMETOLOGY METHOD 07/30/2024 12:25 AM EST [facility] MPV 9.6 7.0 - 11.0 FL LAB HEMETOLOGY METHOD 07/30/2024 12:25 AM EST [facility] NRBC 0.0 <1.0 % LAB HEMETOLOGY METHOD 07/30/2024 12:25 AM EST [facility] NRBC Absolute 0.00 <0.10 K/mcL LAB HEMETOLOGY METHOD 07/30/2024 12:25 AM EST [facility] Blood Venous blood specimen / Unknown Venipuncture / Unknown 07/30/2024 12:15 AM EST 07/30/2024 12:22 AM EST us Jake Land MD LAB BLOOD ORDERABLES Final Re sult [facility] [address] [place] [address], * (ABNORMAL) Erythropoietin (07/04/2024 11:13 AM EST) Erythropoietin 182.6(H) 2.6 - 18.5 mIU/mL 07/07/2024 12:55 PM EST [facility] Comment: Test performed at [facility], [address], [place], [place] ??[address] ? [phone] Brenda Murray MD, PhD - Property Utilization Manager Blood Venous blood specimen / Unknown Venipuncture / Unknown 07/04/2024 11:13 AM EST 07/04/2024 11:30 AM EST Johny Bennett MD LAB BLOOD ORDERABLES Final R esult [place] [address] * (ABNORMAL) Creatinine serum (07/04/2024 11:13 AM EST) Creatinine 1.88(H) 0.70 - 1.30 mg/dL LAB CHEMISTRY METHOD 07/04/2024 12:50 PM EST [facility] eGFR 37(L) >=60 mL/min/1. 73m2 LAB CHEMISTRY METHOD 07/04/2024 12:50 PM EST [facility] Comment:Calculation based on the??Chronic Kidney Disease Epidemiology Collaboration (CKD-EPI) equation refit??without adjustment for race. Blood Venous blood specimen / Unknown Venipuncture / Unknown 07/04/2024 11:13 AM EST 07/04/2024 11:30 AM EST Johny Bennett MD LAB BLOOD ORDERABLES Final R esult Performing Organization Address [facility]/ZIP Co de Phone Number [facility] [address] [place] [address], [place] [phone] * (ABNORMAL) Iron (07/04/2024 11:13 AM EST) Iron 35(L) 50 - 160 mcg/dL LAB CHEMISTRY METHOD 07/04/2024 12:50 PM EST [facility] Blood Venous blood specimen / Unknown Venipuncture / Unknown 07/04/2024 11:13 AM EST 07/04/2024 11:30 AM EST Johny Bennett MD LAB BLOOD ORDERABLES Final R esult [facility] [address] [place] [address], [place] [phone] * Folate (07/04/2024 11:13 AM EST) [facility] Folate 13.5 2.8 - 17.0 ng/ml LAB CHEMISTRY METHOD 07/04/2024 12:50 PM EST [facility] Blood Venous blood specimen / Unknown Venipuncture / Unknown 07/04/2024 11:13 AM EST 07/04/2024 11:30 AM EST Johny Bennett MD LAB BLOOD ORDERABLES Final R esult Performing Organization Address [facility]/ZIP Co de Phone Number [facility] [address] [place] [address], * (ABNORMAL) Vitamin B12 (07/04/2024 11:13 AM EST) [facility] Vitamin B-12 1,845(H) 250 - 900 pcg/mL LAB CHEMISTRY METHOD 07/04/2024 12:50 PM EST [facility] Blood Venous blood specimen / Unknown Venipuncture / Unknown 07/04/2024 11:13 AM EST 07/04/2024 11:30 AM EST Johny Bennett MD LAB BLOOD ORDERABLES Final R esult Performing Organization Address City/[facility]/ZIP Co de Phone Number [facility] [address] [place] [address], [place] [phone] * External Colonoscopy Report (11/09/2014 1:00 PM EDT) Anatomical Region Laterality Modality Endoscopy Historical Provider GI~PROCEDURE ORDERABLES F inal Result from Last 3 Months or Most Recently Relevant to Health Maintenance Insurance [employer] - [place] MEDICARE ADVANTAGE Advance Directives Documents on File Type Date Recorded 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
--- OUTSIDE RECORDS SUMMARY | 2024-09-22 16:20 | XMS_ITS | Clinical Summary ---
Author Organization [facility] Address [address] [place] [address] Care Team Providers Care Offal Baler Name Role Phone Grayson Berrios DO Primary Care Provider [phone] Allergies No known active allergies Medications Medication [...] age to complete this topic Care Teams Offal Baler Relationship Specialty Start Date End Date Grayson Berrios DO [address] [place] [id number] PCP - General Internal Medicine 12/26/22
[2024-09-22 18:17] LABS: Anion Gap 14 (12-20); Blood Urea Nitrogen 42 mg/dL (9-16); Carbon Dioxide 37 mmol/L (22-29); Chloride 92 mmol/L (96-108); Estimated Glomerular Filt Rate 48; Potassium 3.7 mmol/L (3.3-5.1); Sodium 139 mmol/L (135-145)
== END 2024-09-22 13:53 | disposition home or self-care (01) ==
LOC: HO.HKASLDS 13:52
PROVIDERS: Visit Provider Internal Medicine Nephrology
DX: N18.32 Chronic kidney disease, stage 3b (principal); Z90.5 Acquired absence of kidney
CPT/HCPCS: 36415; 80051; 82565; 84520

== ENCOUNTER 2024-09-29 09:49 | Outpatient (AMB) | payer MEDICARE, SELFPAY ==
[2024-09-29 09:51] VITALS: BP 108/60; BMI 26.6
--- NOTE | 2024-09-29 09:51 | HO.NEPHOV ---
Vital Signs 09/29/24 09:51 Height 5 ft 8 in Weight 175 lb BMI 26.6 BP 108/60 Blood Pressure Location Rt brachial Position Sitting Intake Visit Reasons: 3-4mon follow-up w/labs-Voicemail full Intake Note: Patient presents for follow up. Allergies No Known Allergies Allergy (Verified 09/29/24 09:53) Medication List - Last Reconciled 09/29/24 by Candido Feliciano MD albuterol sulfate 90 mcg/actuation 2 inhalations inhalation QID PRN ascorbic acid (vitamin C) 500 mg PO DAILY cyanocobalamin (vitamin B-12) 1,000 mcg PO DAILY ezetimibe 10 mg PO DAILY ferrous gluconate 324 mg PO DAILY fluticasone furoate-vilanterol 100-25 mcg/dose (Breo Ellipta) 1 inh inhalation DAILY omeprazole 40 mg PO DAILY@0630 potassium chloride ER 20 mEq PO TID pravastatin 80 mg PO DAILY torsemide 20 mg PO ONCE umeclidinium 62.5 mcg/actuation (Incruse Ellipta) 1 inh inhalation DAILY HPI Comments Details: 73-year-old male with pertinent history of congestive heart failure with preserved ejection fraction, chronic hypoxic respiratory failure due to COPD on 2 L supplemental oxygen, aik-lnjdlvd-vwjdwldbm diabetes mellitus, permanent atrial fibrillation on Coumadin, mixed hyperlipidemia, hypertension, chronic kidney disease stage III who is being seen in the office today in follow-up. 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 A GI bleeding scan was done at that time without any acute abnormalities. He has seen Dr. Finnegan and had a Watchman device. 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 He had seen Dr Bennett. He had a BM biopsy suggestive of Myelodysplasia and has been getting more and more blood transfusion. 09/29/24 Seen in office for follow up Usually sees my associate- Currently on Procrit from - every Thursday No blood transfusion over 5 weeks Accompanied by [facility] Medical History Chronic heart failure with preserved ejection fraction (HFpEF) Chronic a-fib Severe anemia Hypokalemia Macrocytic anemia Partial small bowel obstruction Anemia CHF (congestive heart failure) Diabetes mellitus CKD (chronic kidney disease) HTN (hypertension) Biatrial enlargement Pulmonary hypertension HLD (hyperlipidemia) Current use of anticoagulant therapy Surgical History Hx of total hip arthroplasty Hx of colonoscopy Hx of esophagogastroduodenoscopy History of nephrectomy Hx of hernia repair Family History Father Cancer Mother No problems noted. Social History Household Members: Significant Other Housing: House Do you presently have visiting nurse or other home services: No Comment: refused bed alarm Patient Tobacco Use Status: Former Tobacco user Second Hand Smoke Exposure: No Advance Directives Date on File: 06/01/00 service: No Physical Exam Vital Signs: Last Vital Signs BP 108/60 09/29/24 09:51 BMI result Body Mass Index 26.6 Comfortable Neck supple no JVD. Lungs entry equal no rales. Heart S1-S2 heard no gallop or rub. Abdomen soft nontender. Neuro alert awake oriented. No asterixis. Extremities no edema. Results Reviewed Nephrology Results: Hgb 7.4 g/dl (14.0-18.0) L 03/16/24 WBC 6.0 X10*3/uL (4.8-10.8) 03/16/24 Plt Count 297 X10*3/uL (160-400) 03/16/24 Sodium 139 mmol/L (135-145) 09/22/24 Potassium 3.7 mmol/L (3.3-5.1) 09/22/24 Chloride 92 mmol/L (96-108) L 09/22/24 Carbon Dioxide 37 mmol/L (22-29) H 09/22/24 BUN 42 mg/dL (9-16) H 09/22/24 Creatinine 1.43 mg/dL (0.5-1.4) H 09/22/24 Calcium 8.4 mg/dL (8.4-10.2) 03/02/24 Assessment & Plan Assessment & Plan (1) HTN (hypertension): Code(s): I10 - Essential (primary) hypertension Category: Medical Qualifiers: Hypertension type: primary hypertension Qualified Code(s): I10 - Essential (primary) hypertension (2) CKD stage 3b, GFR 30-44 ml/min: Code(s): N18.32 - Chronic kidney disease, stage 3b Category: Medical (3) Solitary kidney, acquired: Code(s): Z90.5 - Acquired absence of kidney Category: Medical Plan Deny has acquired solitary kidney and has been having progressive decline in GFR but stable . Cr is at baseline Goal is to slow the progression Anemia F/U with Sabrina for Epogen Fluid status is acceptable. Orders: Orders Complete Blood Count no Diff 5 Weeks I10 - Essential (primary) hypertension, N18.32 - Chronic kidney disease, stage 3b Basic Metabolic Panel 5 Weeks I10 - Essential (primary) hypertension, N18.32 - Chronic kidney disease, stage 3b Coding Level of Care Code Est Pt Level 4 (66396) Diagnoses Primary hypertension I10 Hypertension type: primary hypertension CKD stage 3b, GFR 30-44 ml/min N18.32 Solitary kidney, acquired Z90.5
--- OUTSIDE RECORDS SUMMARY | 2024-09-29 10:55 | XMS_ITS | Clinical Summary ---
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 3 Active pravastatin (PRAVACHOL) 80 mg tablet Take 1 tablet (80 mg total) by mouth at bedtime. 3 Active cyanocobalamin (VITAMIN B-12) 1,000 mcg tablet Take 1 tablet (1,000 mcg total) by mouth 1 (one) time each day. Active omeprazole (PriLOSEC) [address] capsule Take 1 capsule (40 mg total) by mouth 1 (one) time each day. 4 Active Breo Ellipta 200-25 mcg/dose inhaler Inhale 1 puff by mouth 1 (one) time each day. 4 Active fluticasone furoate-vilanter oL (Breo Ellipta) 200-25 mcg/dose inhalerIndicatio ns:Chronic obstructive pulmonary disease, unspecified COPD type ([facility] V24, [facility] V28) Inhale 1 puff by mouth 1 (one) time each day. 3 each 3 5 07/15/19 26 Active Incruse Ellipta 62.5 mcg/actuation inhalationIndica tions:Chronic obstructive pulmonary disease, unspecified COPD type ([facility] V24, [facility] V28) Inhale 1 puff by mouth 1 (one) time each day. 3 each 3 5 Active potassium chloride 20 mEq tablet extended release Take 20 mEq by mouth 3 (three) times a day. 5 Active ferrous sulfate 325 mg (65 mg elemental iron) tablet Take 1 tablet (325 mg total) by mouth 2 (two) times a day. 60 each 5 09/30/19 25 Active torsemide (DEMADEX) 20 mg tablet Take 1 tablet (20 mg total) by mouth 1 (one) time each day. 5 Active Eliquis 5 mg tablet Take 1 tablet (5 mg total) by mouth. 4 Active glipiZIDE (GLUCOTROL) 10 mg tablet Take 1 tablet (10 mg total) by mouth 1 (one) time each day. Active lisinopriL (PRINIVIL,ZESTRI L) 2.5 mg tablet Take 1 tablet (2.5 mg total) by mouth 1 (one) time each day. 1 Active metFORMIN (GLUCOPHAGE) 500 mg tablet Take 1 tablet (500 mg total) by mouth 2 times daily. Active budesonide-formo teroL (SYMBICORT) 160-4.5 mcg/actuation inhaler Inhale by mouth. Active Active Problems Problem Noted Date Diagnosed Date Liver cirrhosis ([facility] V24, [facility] V28) 09/28 Assessment & Plan (09/28/2024 1:00 PM EDT): LFTs are low to normal based on most recent lab work. Recent CTA completed shows no hepatoma. Recall 6 months for routine surveillance with lab work and ultrasound. Chronic blood loss anemia 09/20/2024 Drug therapy 09/05/2024 Gastrointestinal hemorrhage, unspecified gastrointestinal hemorrhage type 08/24/2024 CHF (congestive heart failure) ([facility] V24, [facility] V28) 08/24/2024 CAD (coronary artery disease) 08/24/2024 Liver disease 08/24/2024 Chronic obstructive pulmonar y disease ([facility] V24, [facility] V28) 08/24/2024 Chronic renal impairment, st age 2 (moderate) ([facility] V24, [facility] V28) 08/24/2024 Dysrhythmias 08/24/2024 BRBPR (bright red blood per rectum) 07/29/2024 BPH (benign prostatic hyperplasia) 07/17/2024 Chronic respiratory failure with hypoxia ([facility] V24, [facility] V28) 07/17/2024 Clear cell carcinoma of kidney ([facility] V24, [facility] V28) 07/17/2024 Dyslipidemia 07/17/2024 (HFpEF) heart failure with p reserved ejection fraction ([facility] V24, [facility] V28) 07/17/2024 COPD with emphysema ([facility] V24, [facility] V28) 0 07/17/2024 CRF (chronic renal failure) 06/16/2024 Iron deficiency 05/27/2024 Anemia, unspecified type 05/24/2024 Myelodysplastic syndrome ([facility] V24, [facility] V 28) 04/06/2024 Diabetes type 2, controlled ([facility] V24, [facility]/HC C V28) 01/25/2024 COPD (chronic obstructive pu lmonary disease) ([facility] V24, [facility]/HCC V28) 01/25/2024 Benign hypertensive renal disease 11/26/2020 Stage 3a chronic kidney disease ([facility] V24, S/HCC V28) 11/26/2020 Depressive disorder 01/01/2007 Congestive heart failure ([facility] V24, [facility] V 28) 08/10/2006 Overview (09/20/2024): EF 25-30% echo 07/08, cath negative IMO update Atrial fibrillation ([facility] V24, [facility] V28) 0 07/18/2005 Malaise and fatigue 07/18/2005 Obesity, unspecified 07/18/2005 Alcohol abuse 05/05/2005 Essential hypertension, benign 05/05/2005 Encounters Date Type Department Care Team Description 09/28/2024 8:00 AM EDT Office Visit Gastroenterology - [address] [phone] Kathleen Sethi PA Acute on chronic blood loss anemia (Primary Dx); Alcoholic cirrhosis of liver without ascites ([facility] V24, [facility] V28) 09/26/2024 8:09 AM EDT Hospital Encounter [facility] [address] [place] [phone] Johny Bennett MD Chronic renal failure, stage 3 (moderate), unspecified whether stage 3a or 3b CKD ([facility], [facility] V28) (Primary Dx); Anemia, unspecified type; Drug therapy 09/19/2024 8:22 AM EDT - 09/19/2024 11:59 PM EDT Hospital Encounter [address] [phone] Johny Bennett MD Chronic renal failure, stage 3 (moderate), unspecified whether stage 3a or 3b CKD ([facility], [facility] V28) (Primary Dx); Anemia, unspecified type; Drug therapy Discharge Disposition: Home or Self Care 09/13/2024 Telephone Gastroenterology - [address] [phone] Jesus Beasley MD 09/12/2024 8:14 AM EDT - 09/12/2024 11:59 PM EDT Hospital Encounter [address] [phone] Johny Bennett MD Chronic renal failure, stage 3 (moderate), unspecified whether stage 3a or 3b CKD ([facility] V24, [facility] V28) (Primary Dx); Anemia, unspecified type; Drug therapy Discharge Disposition: Home or Self Care 09/05/2024 8:12 AM EDT - 09/05/2024 11:59 PM EDT Hospital Encounter [facility] [address] [place] [phone] Johny Bennett MD Chronic renal failure, stage 3 (moderate), unspecified whether stage 3a or 3b CKD ([facility], [facility] V28) (Primary Dx); Anemia, unspecified type Discharge Disposition: Home or Self Care 08/29/2024 Telephone Gastroenterology - [address] [phone] Geena Connor CO 08/24/2024 3:30 PM EDT Anesthesia Event [facility] Endoscopy [address] [place] [phone] Warren Polanco MD Chang, Ling, CRNA 08/23/2024 9:04 PM EDT - 08/30/2024 3:06 PM EDT Hospital Encounter [facility] Intermediate Care Unit B [address] [place] [phone] Jass Martino MD Rasul, Yar M, MD Bell, Alistair A, MD Nasser, Nada S, MD Gastrointestinal hemorrhage, unspecified gastrointestinal hemorrhage type (Primary Dx); BRBPR (bright red blood per rectum); GAVE (gastric antral vascular ectasia); Myelodysplastic syndrome ([facility], [facility] V28) Discharge Disposition: [place] [facility] [place]/22/2024 8:21 AM EDT - 08/22/2024 11:59 PM EDT Hospital Encounter [facility] [address] [place] [phone] Johny Bennett MD Chronic renal failure, stage 3 (moderate), unspecified whether stage 3a or 3b CKD ([facility] V24, [facility] V28) (Primary Dx); Anemia, unspecified type Discharge Disposition: Home or Self Care 08/16/2024 8:08 AM EDT - 08/16/2024 11:59 PM EDT Hospital Encounter [facility] [address] [place] [phone] Johny Bennett MD Myelodysplastic syndrome ([facility]/HCC V24, [facility] V28) (Primary Dx); Anemia, unspecified type; Iron deficiency Discharge Disposition: Home or Self Care 08/15/2024 8:07 AM EDT - 08/15/2024 11:59 PM EDT Hospital Encounter [facility] [address] [place] [phone] Johny Bennett MD Chronic renal failure, stage 3 (moderate), unspecified whether stage 3a or 3b CKD (CMS/HCC V24, [facility] V28) (Primary Dx); Anemia, unspecified type; Anemia, unspecified Discharge Disposition: Home or Self Care 08/11/2024 11:00 AM EDT - 08/11/2024 11:59 PM EDT Hospital Encounter [facility] CT Scan [address] [place] [phone] Lung nodules Discharge Disposition: Home or Self Care 08/09/2024 9:23 AM EDT - 08/09/2024 11:59 PM EDT Hospital Encounter [facility] [address] [place] [phone] Johny Bennett MD Myelodysplastic syndrome ([facility]/HCC V24, [facility] V28) (Primary Dx); Anemia, unspecified type; Iron deficiency Discharge Disposition: Home or Self Care 08/08/2024 12:58 PM EDT - 08/08/2024 11:59 PM EDT Hospital Encounter [facility] [address] [place] [phone] Johny Bennett MD Anemia, unspecified type (Primary Dx); Chronic renal failure, stage 3 (moderate), unspecified whether stage 3a or 3b CKD ([facility]/HCC V24, [facility] V28); Anemia, unspecified Discharge Disposition: Home or Self Care 08/02/2024 9:47 AM EST Anesthesia Event [facility] Endoscopy [address] [place] [phone] Warren Polanco MD 07/29/2024 9:03 AM EST - 08/02/2024 12:18 PM EST Hospital Encounter [facility] Medical Surgical Unit [address] [place] [phone] Hector Hilario MD Flores, Carlos M, MD Zipagan, James T, MD Alam, Aroosa, MD Acute GI bleeding (Primary Dx); BRBPR (bright red blood per rectum); Acute on chronic anemia; Hypokalemia; Myelodysplastic syndrome ([facility]/HCC V24, [facility]/HCC V28); Chronic renal failure, stage 3a ([facility]/HCC V24, [facility]/HCC V28) Discharge Disposition: [place]Health [place] [facility] [place] 07/28/2024 10:15 AM EST Office Visit [facility] Hematology Oncology [address] [place] [phone] Johny Bennett MD Myelodysplastic syndrome ([facility]/HCC V24, CMS/HCC V28) (Primary Dx); Iron deficiency 07/26/2024 9:30 AM EST - 07/26/2024 11:59 PM EST Hospital Encounter [facility] [address] [place] [phone] Johny Bennett MD Myelodysplastic syndrome ([facility] V24, [facility] V28) (Primary Dx) Discharge Disposition: Home or Self Care 07/25/2024 9:30 AM EST - 07/25/2024 11:59 PM EST Hospital Encounter [facility] [address] [place] [phone] Johny Bennett MD Chronic renal failure, stage 3 (moderate), unspecified whether stage 3a or 3b CKD (CMS/HCC V24, CMS/HCC V28) (Primary Dx); Anemia, unspecified type Discharge Disposition: Home or Self Care 07/18/2024 9:30 AM EST - 07/18/2024 11:59 PM EST Hospital Encounter [facility] [address] [place] [phone] Johny Bennett MD Chronic renal failure, stage 3 (moderate), unspecified whether stage 3a or 3b CKD ([facility] V24, [facility] V28) (Primary Dx); Anemia, unspecified type Discharge Disposition: Home or Self Care 07/15/2024 11:45 AM EST Office Visit Pulmonolgy - [place] [address] [phone] Jessica Neal MD Lung nodules (Primary Dx); Adrenal nodule ([facility] V24); Chronic obstructive pulmonary disease, unspecified COPD type ([facility] V24, [facility] V28); Bronchiectasis without complication ([facility] V24, [facility] V28); Ex-smoker; CHRISTINE (obstructive sleep apnea) 07/12/2024 9:26 AM EST - 07/12/2024 11:59 PM EST Hospital Encounter [facility] [address] [place] [phone] Johny Bennett MD Myelodysplastic syndrome ([facility] V24, [facility] V28) (Primary Dx) Discharge Disposition: Home or Self Care 07/11/2024 9:30 AM EST - 07/11/2024 11:59 PM EST Hospital Encounter [facility] [address] [place] [phone] Johny Bennett MD Chronic renal failure, stage 3 (moderate), unspecified whether stage 3a or 3b CKD ([facility]/HCC V24, [facility] V28) (Primary Dx); Anemia, unspecified type Discharge Disposition: Home or Self Care 07/05/2024 1:11 PM EST - 07/05/2024 11:59 PM EST Hospital Encounter [facility] [address] [place] [phone] Johny Bennett MD Myelodysplastic syndrome ([facility] V24, [facility] V28) (Primary Dx) Discharge Disposition: Home or Self Care 07/04/2024 11:00 AM EST - 07/04/2024 11:59 PM EST Hospital Encounter [facility] [address] [phone] Chronic renal failure, stage 3 (moderate), unspecified whether stage 3a or 3b CKD ([facility], [facility] V28) (Primary Dx); Anemia, unspecified type Discharge Disposition: Home or Self Care from [...] kidney cancer CHF (congestive heart failur e) ([facility], [facility] V28) DX:CHF (congestive heart andreea lure) ([facility]) Diabetes mellitus ([facility] V 24, [facility] V28) DX:Diabetes mellitus ([facility]) COPD (chronic obstructive pu lmonary disease) ([facility], [facility] V28) DX:COPD (chronic o bstructive pulmonary disease) ([facility]) Hypertension DX:Hypertension BPH (benign prostatic hyperplasia) DX:BPH (benign prostatic hyperplasia) Essential hypertension, benign 05/05/2005 D X:Essential hypertension, benign Alcohol abuse, unspecified 05/05/2005 DX:Al cohol abuse, unspecified Arteritis, unspecified ([facility] V[facility]) DX:Arteritis, unspecified ([facility]) Congestive heart failure, unspecified 08/10/2006 DX:Congestive heart failure, unspecified; COMMENT: EF 25-30% echo 07/08 Pulmonary hypertension ([facility] V24, [facility] V28) DX:Pulmonary hypertension (H CC) CAD (coronary artery disease) Chronic hypoxic respiratory failure ([facility] V[facility], [facility] V28) on 2L O2 Myelodysplastic syndrome ([facility] S/HCC V24, CMS/HCC V28) Atrial fibrillation (CMS/HCC V24, CMS/HCC V28) Hyperlipidemia Renal cancer (CMS/HCC V24, CMS/HCC V28) CKD (chronic kidney disease) GI bleed AVM (arteriovenous malformation) Liver cirrhosis (CMS/HCC V24 , [facility]/HCC V28) Family History Medical History Relation Name [...] Sign Reading Time Taken Comments Blood Pressure 136/97 09/26/2024 8:14 AM EDT Pulse 87 09/26/2024 8:14 AM EDT Temperature 36.7 ??C (98.1 ??F) 09/26/2024 8:14 AM ED T Respiratory Rate 20 09/19/2024 7:00 AM EDT Oxygen Saturation 97% 09/26/2024 8:14 AM EDT w/2lt of 02 Inhaled Oxygen Concentration - - Weight 80.3 kg (177 lb) 09/28/2024 8:08 AM EDT Height 172.7 cm (5' 8 ) 09/28/2024 8:08 AM EDT Body Mass Index 26.91 09/28/2024 8:08 AM EDT Plan of Treatment Upcoming Encounters Date Type Department Care Team (Late st Contact Info) Description 10/03/2024 8:30 AM EDT Appointment [address] [place] [phone] 10/05/2024 7:45 AM EDT Clinical Support Gastroenterology - [address] [phone] 10/07/2024 10:30 AM EDT Office Visit Gastroenterology - [address] [phone] [place], [place] [address] [address] 11/03/2024 10:15 AM EDT Office Visit [facility] Hematology Oncology [address] [place] [phone] Johny Bennett MD [address] [place] [address] 11/08/2024 11:[address] [facility] CT Scan [address] [place] [phone] 11/14/2024 1:30 PM EDT Consult Vascular Surgery - [place] [address] [phone] Peter Thorne MD [address] [phone] 11/17/2024 10:00 AM EDT Office Visit Pulmonolgy - [place] [address] [phone] Jessica Neal MD [address] [phone] 03/30/2025 1:30 PM EDT Office Visit Gastroenterology - [address] [phone] Kathleen Sethi PA [address] [phone] Health Maintenance Due Date Last Done Comments [...] Diagnosis Comments CBC WITH AUTO DIFFERENTIAL STAT 09/26/2024 8:01 AM EDT Chronic renal failure, stage 3 (moderate), unspecified whether stage 3a or 3b CKD (CMS/HCC V24, CMS/HCC V28) Anemia, unspecified type Drug therapy TYPE AND SCREEN STAT 09/26/2024 8:01 AM EDT Anemia, unspecified CBC AND DIFFERENTIAL STAT 09/26/2024 8:01 AM EDT Chronic renal failure, stage 3 (moderate), unspecified whether stage 3a or 3b CKD (CMS/HCC V24, CMS/HCC V28) Anemia, unspecified type Drug therapy CBC WITH AUTO DIFFERENTIAL STAT 09/19/2024 8:16 [...] unspecified whether stage 3a or 3b CKD ([facility] V24, [facility] V28) Anemia, unspecified type EXTERNAL COLONOSCOPY REPORT Routine 11/09/2014 1:00 PM EDT from Last 3 Months or Most Recently Relevant to Health Maintenance Results * (ABNORMAL) CBC auto differential (09/26/2024 8:01 AM EDT) Only the most recent of23 resultswithin the time period is included. WBC 5.3 4.8 - 10.8 K/mcL LAB HEMETOLOGY METHOD 09/26/2024 8:15 AM [facility] RBC 3.20(L) 4.50 - 5.50 M/mcL LAB HEMETOLOGY METHOD 09/26/2024 8:15 AM [facility] Hemoglobin 10.5(L) 13.5 - 17.5 g/dL LAB HEMETOLOGY METHOD 09/26/2024 8:15 AM [facility] Hematocrit 33.7(L) 42.0 - 54.0 % LAB HEMETOLOGY METHOD 09/26/2024 8:15 AM [facility] MCV 104.7(H) 79.0 - 98.0 FL LAB HEMETOLOGY METHOD 09/26/2024 8:15 AM [facility] MCH 32.6(H) 27.0 - 32.0 pcg LAB HEMETOLOGY METHOD 09/26/2024 8:15 AM [facility] MCHC 31.2(L) 32.0 - 37.0 g/dL LAB HEMETOLOGY METHOD 09/26/2024 8:15 AM [facility] RDW 21.1(H) 11.0 - 15.0 % LAB HEMETOLOGY METHOD 09/26/2024 8:15 AM [facility] Platelets 180 130 - 400 K/mcL LAB HEMETOLOGY METHOD 09/[facility]24 [facility] MPV 9.5 7.0 - 11.0 FL LAB HEMETOLOGY METHOD 09/26/2024 8:15 AM [facility] NRBC 0.0 <1.0 % LAB HEMETOLOGY METHOD 09/26/2024 8:15 AM [facility] NRBC Absolute 0.00 <0.10 K/mcL LAB HEMETOLOGY METHOD 09/26/2024 8:15 AM [facility] Neutrophils Relative 71.7 % LAB HEMETOLOGY METHOD 09/26/2024 8:15 AM [facility] Lymphocytes Relative 14.2 % LAB HEMETOLOGY METHOD 09/26/2024 8:15 AM [facility] Monocytes Relative 9.7 % LAB HEMETOLOGY METHOD 09/26/2024 8:15 AM [facility] Eosinophils Relative 3.6 % LAB HEMETOLOGY METHOD 09/26/2024 8:15 AM [facility] Basophils Relative 0.4 % LAB HEMETOLOGY METHOD 09/26/2024 8:15 AM [facility] Immature Granulocytes Relative 0.4 % LAB HEMETOLOGY METHOD 09/26/2024 8:15 AM [facility] Neutrophils Absolute 3.78 1.50 - 7.00 K/mcL LAB HEMETOLOGY METHOD 09/26/2024 8:15 AM [facility] Lymphocytes Absolute 0.75(L) 1.00 - 5.00 K/mcL LAB HEMETOLOGY METHOD 09/26/2024 8:15 AM [facility] Monocytes Absolute 0.51 0.20 - 1.00 K/mcL LAB HEMETOLOGY METHOD 09/26/2024 8:15 AM [facility] Eosinophils Absolute 0.19 0.00 - 0.50 K/mcL LAB HEMETOLOGY METHOD 09/26/2024 8:15 AM EDT [facility] Basophils Absolute 0.02 0.00 - 0.20 K/[facility] LAB HEMETOLOGY METHOD 09/26/2024 8:15 AM EDT [facility] Immature Granulocytes Absolute 0.02 0.00 - 0.03 K/[facility] LAB HEMETOLOGY METHOD 09/26/2024 8:15 AM EDT [facility] Blood Venous blood specimen / Unknown Venipuncture / Unknown 09/26/2024 8:01 AM EDT 09/26/2024 8:11 AM EDT us Johny Bennett MD LAB BLOOD ORDERABLES Final R esult Performing Organization Address City/[facility]/ZIP Co de Phone Number [facility] [address] [place] [address], * Type and screen (09/26/2024 8:01 AM EDT) Only the most recent of13 resultswithin the time period is included. ABO Group O 09/26/2024 9:22 AM EDT [facility] Rh Type Positive 09/26/2024 9:22 AM EDT [facility] Antibody Screen Negative 09/26/2024 9:22 AM EDT [facility] Blood Venous blood specimen / Unknown Venipuncture / Unknown 09/26/2024 8:01 AM EDT 09/26/2024 8:11 AM EDT us Johny Bennett MD LAB BLOOD BANK TEST ORDERABL ES Final Result [facility] [address] [place] [address], [place] [phone] * Transferrin (09/05/2024 7:51 AM EDT) Only the most recent of2 resultswithin the time period is included. Transferrin 232 200 - 360 mg/dL 09/07/2024 3:46 AM EDT [facility] Comment: Test performed at [facility], [address] , [place], [place] ??[address] ? [phone] Brenda Murray MD, PhD - [employer] Blood Venous blood specimen / Unknown Venipuncture / Unknown 09/05/2024 7:51 AM EDT 09/05/2024 8:08 AM EDT Johny Bennett MD LAB BLOOD ORDERABLES Final R esult [facility] [address] [place] [address] * Ferritin (09/05/2024 7:51 AM EDT) Only the most recent of2 resultswithin the time period is included. Ferritin 262 26 - 388 ng/mL LAB CHEMISTRY METHOD 09/05/2024 8:33 AM EDT [facility] Blood Venous blood specimen / Unknown Venipuncture / Unknown 09/05/2024 7:51 AM EDT 09/05/2024 8:08 AM EDT Johny Bennett MD LAB BLOOD ORDERABLES Final R esult [facility] [address] [place] [address], [place] [phone] * ECG-Outside (08/31/2024) Only the most recent of2 resultswithin the time period is included. us Provider Onbase MD ECG ORDERABLES Final Result * ECG-Annotated (08/31/2024) Provider Onbase MD ECG ORDERABLES Final Result * (ABNORMAL) Hemoglobin and hematocrit (08/30/2024 12:37 PM EDT) Only the most recent of5 resultswithin the time period is included. Hemoglobin 8.4(L) 13.5 - 17.5 g/dL LAB HEMETOLOGY METHOD 08/30/2024 12:48 PM EDT [facility] Hematocrit 27.2(L) 42.0 - 54.0 % LAB HEMETOLOGY METHOD 08/30/2024 12:48 PM EDT [facility] Blood Venous blood specimen / Unknown Venipuncture / Unknown 08/30/2024 12:37 PM EDT 08/30/2024 12:44 PM EDT us Kaiser Francis MD LAB BLOOD ORDERABLES Final Resu lt Performing Organization Address City/[facility]/ZIP Co de Phone Number [facility] [address] [place] [address], [place] [phone] * (ABNORMAL) POCT Glucose, blood (08/30/2024 11:50 AM EDT) Only the most recent of28 resultswithin the time period is included. [facility] Glucose POCT 141(H) 70 - 100 mg/dL 08/30/2024 11:51 AM EDT [facility] Blood Capillary blood specimen / Unknown 08/30/2024 11:50 AM EDT 08/30/2024 11:52 AM EDT us Kaiser Francis MD LAB POINT OF CARE TE ST DOCKED DEVICE UNSOLICITED RESULTS Final Result Performing Organization Address City/[facility]/ZIP Co de Phone Number [facility] [address] [place] [address], [place] [phone] * (ABNORMAL) Basic metabolic panel (08/30/2024 5:21 AM EDT) Only the most recent of9 resultswithin the time period is included. Sodium 136 133 - 145 mmol/L LAB CHEMISTRY METHOD 08/30/2024 7:05 AM [facility] Potassium 4.0 3.5 - 5.5 mmol/L LAB CHEMISTRY METHOD 08/30/2024 7:05 AM [facility] Chloride 95(L) 96 - 110 mmol/L LAB CHEMISTRY METHOD 08/30/2024 7:05 AM [facility] CO2 38(H) 21 - 32 mmol/L LAB CHEMISTRY METHOD 08/30/2024 7:05 AM [facility] Anion Gap 3 3 - 11 LAB CHEMISTRY METHOD 08/30/2024 7:05 AM [facility] Glucose 111(H) 70 - 100 mg/dL LAB CHEMISTRY METHOD 08/30/2024 7:05 AM [facility] BUN 28(H) 5 - 25 mg/dL LAB CHEMISTRY METHOD 08/30/2024 7:05 AM [facility] Creatinine 1.61(H) 0.70 - 1.30 mg/dL LAB CHEMISTRY METHOD 08/30/2024 7:05 AM [facility] eGFR 44(L) >=60 mL/min/1. 73m2 LAB CHEMISTRY METHOD 08/30/2024 7:05 AM [facility] Comment:Calculation based on the??Chronic Kidney Disease Epidemiology Collaboration (CKD-EPI) equation refit??without adjustment for race. BUN/Creatinine Ratio 17.4 LAB CHEMISTRY METHOD 08/30/2024 7:05 AM [facility] Calcium 8.1(L) 8.5 - 10.5 mg/dL LAB CHEMISTRY METHOD 08/30/2024 7:05 AM [facility] Blood Venous blood specimen / Unknown Venipuncture / Unknown 08/30/2024 5:21 AM EDT 08/30/2024 6:11 AM EDT us Yevgeniy Horton MD LAB BLOOD ORDERABLES Final Re sult Performing Organization Address [facility]/ZIP Co de Phone Number [facility] [address] [place] [address], [place] [phone] * ECG 12 lead (08/29/2024 2:13 PM EDT) Only the most recent of3 resultswithin the time period is included. Ventricular Rate ECG 65 BPM GEMUSE Atrial Rate 170 BPM GEMUSE QRS Duration 110 ms GEMUSE Q-T Interval 442 ms GEMUSE QTc 459 ms GEMUSE R Ruffin 21 degrees GEMUSE T Ruffin 20 degrees GEMUSE ECG Interpretation Atrial fibrillation Low voltage QRS Nonspecific T wave abnormality Abnormal ECG When compared with ECG of 25-AUG-2024 12:38, Nonspecific T wave abnormality no longer evident in Anterior leads Confirmed by NAVIN NOLAN ([id number]) on 08/30/2024 1:32:14 PM GEMUSE 08/29/2024 2:13 PM EDT 08/30/2024 1:32 PM EDT Kaiser Francis MD ECG ORDERABLES Final Result Performing Organization Address [facility] de Phone Number GEMUSE * Magnesium (08/29/2024 5:26 AM EDT) Only the most recent of4 resultswithin the time period is included. Pathologist [facility] Magnesium 2.4 1.9 - 2.6 mg/dL LAB CHEMISTRY METHOD 08/29/2024 7:00 AM EDT [facility] Blood Venous blood specimen / Unknown Venipuncture / Unknown 08/29/2024 5:26 AM EDT 08/29/2024 6:14 AM EDT us Yevgeniy Horton MD LAB BLOOD ORDERABLES Final Re sult Performing Organization Address City/[facility]/ZIP Co de Phone Number [facility] [address] [place] [address], [place] [phone] * Digoxin level (08/29/2024 5:26 AM EDT) Only the most recent of3 resultswithin the time period is included. Digoxin Lvl 1.0 0.5 - 2.0 ng/mL LAB CHEMISTRY METHOD 08/29/2024 12:52 PM EDT [facility] Blood Venous blood specimen / Unknown Venipuncture / Unknown 08/29/2024 5:26 AM EDT 08/29/2024 6:14 AM EDT us Kaiser Francis MD LAB BLOOD ORDERABLES Final Resu lt [facility] [address] [place] [address], * CT Angio Abdomen Pelvis wo and/or [...] 4:49 PM EDT) Only the most recent of11 resultswithin the time period is included. us Navdeep Gardner MD BLOOD TRANSFUSION ORDERABLES Fin al Result * Prepare RBC: 2 Units, Leukoreduced (08/26/2024 9:08 AM EDT) Only the most recent of7 resultswithin the time period is included. Product Code [id number] 08/26/2024 10:[facility] Unit Number [id number] 08/27/19 10:16 AM [facility] Crossmatch Compatible 08/26/2024 9:57 AM [facility] Dispense Status Transfused 08/26/2024 10:16 AM [facility] Unit ABO Rh OPOS 08/26/2024 10:16 AM [facility] Unit Expiration Date Time [id number] 08/26/2024 10:16 AM [facility] Unit Blood Type 5100 08/26/2024 10:16 AM [facility] Product Code [id number] 08/26/2024 1:36 PM [facility] Unit Number [id number] 08/27/19 25 1:36 PM [facility] Crossmatch Compatible 08/26/2024 9:57 AM EDT [facility] Dispense Status Transfused 08/26/2024 1:36 PM EDT [facility] Unit ABO Rh OPOS 08/26/2024 1:36 PM EDT [facility] Unit Expiration Date Time [id number] 08/26/2024 1:36 PM EDT [facility] Unit Blood Type 5100 08/26/2024 1:36 PM EDT [facility] Blood Venous blood specimen / Unknown 08/26/2024 9:08 AM EDT 08/23/2024 9:35 PM EDT Navdeep Gardner MD BLOOD BANK PRODUCT ORDERABLES Fi nal Result [facility]) [facility] [address] [place] [address], * EGD Anesthesia - MAC; [facility] ENDOSCOPY (08/24/2024 3:57 PM EDT) Only [...] significant bleeding. Narrative 08/24/2024 3:[address] [facility] GI Patient Name: Kiran Law Procedure Date: [...] Procedure Code(s): ? --- Professional --- ? 84194, Esophagogastroduodenoscopy, flexible, ? transoral; diagnostic, including collection of ? specimen(s) by brushing or washing, when performed ? (separate procedure) Diagnosis Code(s): ? --- Professional --- ? 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 K92.1, Melena (includes Hematochezia) CPT copyright 2020 [employer]. All rights reserved. The codes documented in this report are preliminary and upon grinding machine tender review may be revised to meet current compliance requirements. Gwendolyn Clarke MD 08/24/2024 3:58:20 PM This report has been signed electronically.Gwendolyn Clarke MD Number of Addenda: 0 Note Initiated On: 08/24/2024 3:27 PM Scope In: Scope Out: ? Endoscopy Department at [facility] - [address] [place] [address], ? [place] [address] Procedure Note Gwendolyn Clarke MD - 08/24/2024 [facility] GI Patient Name: Kiran Law Procedure Date: [...] was seen. Procedure Code(s): --- Professional --- 49278, Esophagogastroduodenoscopy, flexible, transoral; diagnostic, including collection of specimen(s) by brushing or washing, when performed (separate procedure) Diagnosis Code(s): --- Professional --- K31.819, Angiodysplasia of stomach and duodenum without bleeding K92.1, Melena (includes Hematochezia) CPT copyright 2020 [employer]. All rights reserved. The codes documented in this report are preliminary and upon grinding machine tender reviewmay be revised to meet current compliance requirements. Gwendolyn Clarke MD 08/24/2024 3:58:20 PM This report has been signed electronically.Gwendolyn Clarke MD Number of Addenda: 0 Note Initiated On: 08/24/2024 3:27 PM Scope In: Scope Out: Endoscopy Department at [facility] - [address] [place] [id number] IMPRESSION: - Normal esophagus. - Gastric antral vascular ectasia withoutbleeding. - Normal examined duodenum. - Normal examined jejunum. - No specimens collected. Recommendation: - Continue supportive care with transfusions as needed. Consider bleeding scan or CTA (if possible)if hemodynically significant bleeding. us Gwendolyn Clarke MD GI~PROCEDURE ORDERABLES Final Result * TH AN ENDOTRACHEAL(NO CHARGE) (08/24/2024 3:39 PM EDT) Narrative Thuy Simmons CRNA - 08/24/2024 3:39 PM EDT Thuy [...] Hold for add-ons. 08/24/2024 11:01 AM EDT [facility] Comment:Auto resulted. Blood Venous blood specimen / Unknown 08/24/2024 8:49 AM EDT 08/24/2024 9:44 AM EDT us Navdeep Gardner MD LAB BLOOD ORDERABLES Final Resul t [facility] [address] [place] [address], [place] [phone] * Troponin I high sensitivity (08/23/2024 11:42 PM EDT) Only the most recent of2 resultswithin the time period is included. [facility] High Sensitivity Troponin I 13 <=79 ng/L LAB CHEMISTRY METHOD 08/24/2024 12:35 AM EDT [facility] Blood Venous blood specimen / Unknown Venipuncture / Unknown 08/23/2024 11:42 PM EDT 08/23/2024 11:53 PM EDT Narrative [facility] - 08/24/2024 12:35 AM EDT High levels of biotin in samples may falsely decrease hsTroponin values. ??Use caution when interpreting hsTroponin results in patients taking biotin who exhibit renal impairment (eGFR <60) or in patients taking more than 20 mg/day of biotin. us Lyric WHITAKER LAB BLOOD ORDERABLES Final Resu lt Performing Organization Address [facility]/ZIP Co de Phone Number [facility] [address] [place] [address], [place] [phone] * (ABNORMAL) Protime-INR (08/23/2024 10:05 PM EDT) Only the most recent of2 resultswithin the time period is included. [facility] Protime 14.3(H) 10.6 - 13.9 sec LAB COAGULATION METHOD 08/23/2024 11:12 PM EDT [facility] INR 1.1 LAB COAGULATION METHOD 08/23/2024 11:12 PM EDT [facility] Blood Venous blood specimen / Unknown Venipuncture / Unknown 08/23/2024 10:05 PM EDT 08/23/2024 10:58 PM EDT us Lyric WHITAKER LAB BLOOD ORDERABLES Final Resu lt [facility] [address] [place] [address], [place] [phone] * B-type natriuretic peptide (08/23/2024 10:05 PM EDT) BNP 45 <=100 pcg/mL LAB CHEMISTRY METHOD 08/23/2024 11:39 PM EDT [facility] Blood Venous blood specimen / Unknown Venipuncture / Unknown 08/23/2024 10:05 PM EDT 08/23/2024 10:58 PM EDT us Lyric WHITAKER LAB BLOOD ORDERABLES Final Resu lt [facility] ([facility]) [facility] [address] [place] [address], [place] [phone] * XR Chest 1 View (08/23/2024 9:50 PM EDT) Anatomical Region Laterality Modality Body Radiographic Celeste ging 08/24/2024 8:31 AM EDT Impressions 08/24/2024 8:33 AM EDT Impression: 1. Stable cardiomegaly. 2. No active pulmonary process. Telerad JULIANNE ([id number]) -------- FINAL REPORT -------- Dictated By: Herlinda Posada Dictated Date: 08/24/2024 08:31 ET Assigned Physician: Herlinda Posada Reviewed and Electronically Signed By: Herlinda Posada Signed Date: 08/24/2024 08:33 ET Workstation ID: [id number] Transcribed By: Self Edit Transcribed Date: 08/24/2024 [...] 2. No active pulmonary process. Teleparesh WHITAKER ([id number]) -------- FINAL REPORT -------- Dictated By: Herlinda Posada Dictated Date: 08/24/2024 08:31 ET Assigned Physician: Herlinda Posada Reviewed and Electronically Signed By: Herlinda Posada Signed Date: 08/24/2024 08:33 ET Workstation ID: [id number] Transcribed By: Self Edit Transcribed Date: 08/24/2024 08:31 ET Jazmine WHITAKER IMG XR PROCEDURES Final Result * (ABNORMAL) Comprehensive metabolic panel (08/23/2024 9:21 PM EDT) Only the most recent of3 resultswithin the time period is included. Sodium 139 133 - 145 mmol/L LAB CHEMISTRY METHOD 08/23/2024 10:33 PM [facility] Potassium 4.3 3.5 - 5.5 mmol/L LAB CHEMISTRY METHOD 08/23/2024 10:33 PM [facility] Comment:Hemolysis present Chloride 96 96 - 110 mmol/L LAB CHEMISTRY METHOD 08/23/2024 10:33 PM [facility] CO2 32 21 - 32 mmol/L LAB CHEMISTRY METHOD 08/23/2024 10:33 PM [facility] Anion Gap 11 3 - 11 LAB CHEMISTRY METHOD 08/23/2024 10:33 PM [facility] Glucose 184(H) 70 - 100 mg/dL LAB CHEMISTRY METHOD 08/23/2024 10:33 PM [facility] BUN 74(H) 5 - 25 mg/dL LAB CHEMISTRY METHOD 08/23/2024 10:33 PM [facility] Creatinine 1.82(H) 0.70 - 1.30 mg/dL LAB CHEMISTRY METHOD 08/23/2024 10:33 PM [facility] eGFR 38(L) >=60 mL/min/1. 73m2 LAB CHEMISTRY METHOD 08/23/2024 10:33 PM [facility] Comment:Calculation based on the??Chronic Kidney Disease Epidemiology Collaboration (CKD-EPI) equation refit??without adjustment for race. BUN/Creatinine Ratio 40.7 LAB CHEMISTRY METHOD 08/23/2024 10:33 PM [facility] Calcium 8.2(L) 8.5 - 10.5 mg/dL LAB CHEMISTRY METHOD 08/23/2024 10:33 PM [facility] AST (SGOT) 27 10 - 42 unit/L LAB CHEMISTRY METHOD 08/23/2024 10:33 PM [facility] ALT (SGPT) 13 10 - 60 unit/L LAB CHEMISTRY METHOD 08/23/2024 10:33 PM [facility] Alkaline Phosphatase 31(L) 42 - 121 unit/L LAB CHEMISTRY METHOD 08/23/2024 10:33 PM [facility] Total Protein 5.5(L) 6.0 - 8.0 g/dL LAB CHEMISTRY METHOD 08/23/2024 10:33 PM [facility] Albumin 3.0(L) 3.2 - 5.0 g/dL LAB CHEMISTRY METHOD 08/23/2024 10:33 PM [facility] Total Bilirubin 0.5 0.0 - 1.4 mg/dL LAB CHEMISTRY METHOD 08/23/2024 10:33 PM [facility] Blood Venous blood specimen / Unknown Venipuncture / Unknown 08/23/2024 9:21 PM EDT 08/23/2024 9:35 PM EDT us Wilder Willingham MD LAB BLOOD ORDERABLES Wendie britta Result [facility] [address] [place] [address], [place] [phone] * CT Chest wo Contrast (08/11/2024 11:52 [...] Signed Date: 08/11/2024 15:03 ET Workstation ID: [id number] Transcribed By: Self Edit Transcribed Date: 08/11/2024 [...] Bilateral adrenal adenomas are stable dating back [id number] BONES: Subacute or chronic, healing fracture of [...] Signed Date: 08/11/2024 15:03 ET Workstation ID: [id number] Transcribed By: Self Edit Transcribed Date: 08/11/2024 14:20 ET Jessica Neal MD IMG CT PROCEDURES Final Result * (ABNORMAL) Complete blood count (07/30/2024 12:15 AM EST) Only the most recent of3 resultswithin the time period is included. Pathologist [facility] WBC 6.1 4.8 - 10.8 K/mcL LAB HEMETOLOGY METHOD 07/30/2024 12:25 AM [facility] RBC 3.00(L) 4.50 - 5.50 M/mcL LAB HEMETOLOGY METHOD 07/30/2024 12:25 AM [facility] Hemoglobin 8.2(L) 13.5 - 17.5 g/dL LAB HEMETOLOGY METHOD 07/30/2024 12:25 AM [facility] Hematocrit 28.5(L) 42.0 - 54.0 % LAB HEMETOLOGY METHOD 07/30/2024 12:25 AM [facility] MCV 94.7 79.0 - 98.0 FL LAB HEMETOLOGY METHOD 07/30/2024 12:25 AM [facility] MCH 27.2 27.0 - 32.0 pcg LAB HEMETOLOGY METHOD 07/30/2024 12:25 AM [facility] MCHC 28.8(L) 32.0 - 37.0 g/dL LAB HEMETOLOGY METHOD 07/30/2024 12:25 AM [facility] RDW 19.3(H) 11.0 - 15.0 % LAB HEMETOLOGY METHOD 07/30/2024 12:25 AM [facility] Platelets 230 130 - 400 K/mcL LAB HEMETOLOGY METHOD 07/30/2024 12:25 AM EST [facility] MPV 9.6 7.0 - 11.0 FL LAB HEMETOLOGY METHOD 07/30/2024 12:25 AM EST [facility] NRBC 0.0 <1.0 % LAB HEMETOLOGY METHOD 07/30/2024 12:25 AM EST [facility] NRBC Absolute 0.00 <0.10 K/mcL LAB HEMETOLOGY METHOD 07/30/2024 12:25 AM EST [facility] Blood Venous blood specimen / Unknown Venipuncture / Unknown 07/30/2024 12:15 AM EST 07/30/2024 12:22 AM EST Jake Land MD LAB BLOOD ORDERABLES Final Re sult Performing Organization Address [facility]/ZIP Co de Phone Number [facility] [address] [place] [address], * (ABNORMAL) Erythropoietin (07/04/2024 11:13 AM EST) Erythropoietin 182.6(H) 2.6 - 18.5 mIU/mL 07/07/2024 12:55 PM EST [facility] Comment: Test performed at [facility], [address] [place], [place] ??[address] ? [phone] Brenda Murray MD, PhD - Fence [employer] Blood Venous blood specimen / Unknown Venipuncture / Unknown 07/04/2024 11:13 AM EST 07/04/2024 11:30 AM EST us Johny Bennett MD LAB BLOOD ORDERABLES Final R esult [facility] [address] [place] [address] * (ABNORMAL) Creatinine serum (07/04/2024 11:13 AM EST) Creatinine 1.88(H) 0.70 - 1.30 mg/dL LAB CHEMISTRY METHOD 07/04/2024 12:50 PM EST [facility] eGFR 37(L) >=60 mL/min/1. 73m2 LAB CHEMISTRY METHOD 07/04/2024 12:50 PM EST [facility] Comment:Calculation based on the??Chronic Kidney Disease Epidemiology Collaboration (CKD-EPI) equation refit??without adjustment for race. Blood Venous blood specimen / Unknown Venipuncture / Unknown 07/04/2024 11:13 AM EST 07/04/2024 11:30 AM EST us Johny Bennett MD LAB BLOOD ORDERABLES Final R esult [facility] [address] [place] [address], * (ABNORMAL) Iron (07/04/2024 11:13 AM EST) Iron 35(L) 50 - 160 mcg/dL LAB CHEMISTRY METHOD 07/04/2024 12:50 PM EST [facility] Blood Venous blood specimen / Unknown Venipuncture / Unknown 07/04/2024 11:13 AM EST 07/04/2024 11:30 AM EST Johny Bennett MD LAB BLOOD ORDERABLES Final R esult [facility] [address] [place] [address], [place] [phone] * Folate (07/04/2024 11:13 AM EST) Folate 13.5 2.8 - 17.0 ng/ml LAB CHEMISTRY METHOD 07/04/2024 12:50 PM EST [facility] Blood Venous blood specimen / Unknown Venipuncture / Unknown 07/04/2024 11:13 AM EST 07/04/2024 11:30 AM EST Johny Bennett MD LAB BLOOD ORDERABLES Final R esult Performing Organization Address City/[facility]/ZIP Co de Phone Number [facility] [address] [place] [address], [place] [phone] * (ABNORMAL) Vitamin B12 (07/04/2024 11:13 AM EST) Pathologist [facility] Vitamin B-12 1,845(H) 250 - 900 pcg/mL LAB CHEMISTRY METHOD 07/04/2024 12:50 PM EST [facility] Blood Venous blood specimen / Unknown Venipuncture / Unknown 07/04/2024 11:13 AM EST 07/04/2024 11:30 AM EST Johny Bennett MD LAB BLOOD ORDERABLES Final R esult Performing Organization Address [facility] Co de Phone Number [facility] [address] [place] [address], [place] [phone] * External Colonoscopy Report (11/09/2014 1:00 PM EDT) Anatomical Region Laterality Modality Endoscopy [facility] Provider GI~PROCEDURE ORDERABLES F inal Result from Last 3 Months or Most Recently Relevant to Health Maintenance Insurance [employer] - [place] MEDICARE ADVANTAGE Advance Directives Documents on File Type Date Recorded Patient Radiology Physician Expl anation Health Care Decision (hx) 09/27/2020 AD LSAT [...] Relationship Healthcare Agent Relationshi p Communication Farida Farooqdro Spouse Health Care Agent Care Teams Horse Riding Coach Or Instructor Relationship Specialty Start Date End Date Grayson Berrios DO [address] [place] [address] [phone] PCP - General 08/22/15
--- OUTSIDE RECORDS SUMMARY | 2024-09-29 10:55 | XMS_ITS | Encounter Summary ---
Author Organization [facility] Address [address] [place] [address] Care Team Providers Care Line Repairer Tower Name Role Phone Grayson Berrios DO Primary Care Provider [phone] Reason for Visit * Episode Based Medications (Routine) - Authorized Specialty Diagnoses / Procedures Referred By Contac t Referred To Contact Diagnoses Chronic renal failure, stage 3 (moderate), unspecified whether stage 3a or 3b CKD (CMS/HCC V24, CMS/HCC V28) Anemia, unspecified type Drug therapy Johny Bennett MD [address] [place] [address] Phone: tel: fax: [facility] [address] [place] [phone] Phone: tel: fax: Referral ID Status Reason Start Date Expiration Date V isits Requested Visits Authorized [id number] Authorized 06/16/2024 06/16/2025 1 52 Encounter Details Date Type Department Care Team (Latest Contact Info) Description 09/26/2024 8:09 AM EDT Hospital Encounter [facility] [address] [place] [phone] Johny Bennett MD [address] [place] [address] Chronic renal failure, stage 3 (moderate), unspecified [...] 09/26/2024 8:14 AM ED T Respiratory Rate - - Oxygen Saturation 97% 09/26/2024 8:14 AM EDT w/2lt of 02 Inhaled Oxygen Concentration - - Weight - - Height - - Body Mass Index - - documented in this encounter Progress Notes * Marlee Fraser RN - 09/26/2024 8:30 AM EDT Pt arrives ambulatory for retacrit injection. Pt reports feeling good. Medications, allergies, labs, and assessment reviewed. Medication released to pharmacy and brought to room temperature. Injection given RIGHT arm SQ. Pt tolerated well. Pt had labs drawn downstairs. H/H 10.5/33.7 - no need for PRBC transfusion tomorrow. Clarification with MD for parameters. HOLD FOR HGB >10.5. Appointment made for next injection. Pt stable at discharge. documented in this encounter Plan of Treatment Upcoming Encounters Date Type Department Care Team (Late st Contact Info) Description 10/03/2024 8:30 AM EDT Appointment [facility] 271 [facility] 2nd [place] [address] 10/05/2024 7:45 AM EDT Clinical Support Gastroenterology - [address] [address] 10/07/2024 10:30 AM EDT Office Visit Gastroenterology - [address] [phone] Isela Ibanez NP [address] [address] 11/03/2024 10:15 AM EDT Office Visit [facility] Hematology Oncology [address] [place] [address] Johny Bennett MD [address] [place] [address] 11/08/2024 11:00 AM EDT Appointment [facility] CT Scan [address] [place] [address] 11/14/2024 1:30 PM EDT Consult Vascular Surgery - [place] [address] [address] Peter Thorne MD [address] [address] 11/17/2024 10:00 AM EDT Office Visit Pulmonolgy - [place] [address] [address] Jessica Neal MD [address] [address] 03/30/2025 1:30 PM EDT Office Visit Gastroenterology - 299 Stephanie [address] [facility] [address] [place] [address] Kathleen Sethi PA [address] [place] [address] documented as of this encounter Visit Diagnoses Diagnosis Chronic renal failure, stage 3 (moderate), unspecified whether stage 3a or 3b CKD ([facility] V24, [facility] V28)- Primary Anemia, unspecified type Drug therapy Encounter for other specified aftercare documented in this encounter Administered Medications Inactive Administered Medications - up to 3 most recent administrations Medication Order MAR Action Action Date Dose Rate Site epoetin donna-epbx (RETACRIT) injection 20,000 Units 20,000 Units, subcutaneous, Once, On Thu09/26/24 at 0845, For 1 doseIndications:Chronic renal failure, stage 3 (moderate), unspecified whether stage 3a or 3b CKD ([facility] V24, [facility] V28),Anemia, unspecified type,Drug therapy Given 09/26/2024 8:49 AM EDT 20,000 Units Right Upper Arm (Back) documented in this encounter Orders Medications Ordered That Bryon ht Not Have Been Administered Count Last Ordered Date First Ordered Date epoetin donna-epbx (RETACRIT) injection 20,000 Units 1 09/26/2024 documented in this encounter Care Teams Line Repairer Tower Relationship Specialty Start Date End Date Grayson Berrios DO [address] [place] [phone] PCP - General 08/22/15 documented as of this encounter
--- OUTSIDE RECORDS SUMMARY | 2024-09-29 10:55 | XMS_ITS | Clinical Summary ---
Author Organization [facility] Address [address] [facility] [address] [place] [address] Phone Care Team Providers Care Fretted String Instrument Repairer Name Role Phone Grayson Berrios DO Primary [...] patient's age to complete this topic Insurance [facility] Care Teams Fretted String Instrument Repairer Relationship Specialty Start Date End Date Grayson Berrios DO [address] [place] [address] PCP - General 06/11/20
--- OUTSIDE RECORDS SUMMARY | 2024-09-29 10:55 | XMS_ITS | Encounter Summary ---
Author Organization [facility] Address [address] [place] [address] Care Team Providers Care Glass Blower Helper Name Role Phone Grayson Berrios DO Primary Care Provider [phone] Encounter Details Date Type Department Care Team (Late st Contact Info) Description 04/04/2024 Lab Requisition [facility] - Main Lab 299 [facility] [place] [phone] Johny Bennett MD [address] [place] [address] Chronic kidney disease, unspecified; Monoclonal gammopathy; Nutritional [...] Info) Description 10/03/2024 8:30 AM EDT Appointment [facility] 271 [facility] 2nd [place] [phone] 10/05/2024 7:45 AM EDT Clinical Support Gastroenterology - 299 Stephanie [address] [address] 10/07/2024 10:30 AM EDT Office Visit Gastroenterology - [address] [address] Isela Ibanez NP [address] [address] 11/03/2024 10:15 AM EDT Office Visit [facility] Hematology Oncology [address] [place] [address] Johny Bennett MD 271 [place] [address] 11/08/2024 11:00 AM EDT Appointment [facility] CT Scan 271 [place] [phone] 11/14/2024 1:30 PM EDT Consult Vascular Surgery - [place] 300 [facility] [address] [place] [address] Peter Thorne MD [address] [address] 11/17/2024 10:00 AM EDT Office Visit Pulmonolgy - [place] 175 [facility] 200 [place] [phone] Jessica Neal MD 175 [facility] 200 [place] [address] 03/30/2025 1:30 PM EDT Office Visit Gastroenterology - [address] [phone] Kathleen Sethi PA [address] [address] documented as of this encounter Procedures Procedure [...] ABO Group O 04/04/2024 12:50 PM EST [facility] Rh Type Positive 04/04/2024 12:50 PM EST [facility] Antibody Screen Negative 04/04/2024 12:50 PM EST [facility] Blood Venous blood specimen / Unknown 04/04/2024 8:00 AM EST 04/04/2024 12:01 PM EST Johny Bennett MD LAB BLOOD BANK TEST ORDERABL ES Final Result [facility] 299 [place] [address], * (ABNORMAL) Complete blood count (04/04/2024 8:00 AM EST) WBC 5.1 4.8 - 10.8 K/[facility] LAB HEMETOLOGY METHOD 04/04/2024 10:13 AM EST [facility] RBC 2.50(L) 4.50 - 5.50 M/[facility] LAB HEMETOLOGY METHOD 04/04/2024 10:13 AM [facility] Hemoglobin 6.6(L) 13.5 - 17.5 g/dL LAB HEMETOLOGY METHOD 04/04/2024 10:13 AM [facility] Hematocrit 23.2(L) 42.0 - 54.0 % LAB HEMETOLOGY METHOD 04/04/2024 10:13 AM [facility] MCV 91.3 79.0 - 98.0 FL LAB HEMETOLOGY METHOD 04/04/2024 10:13 AM [facility] MCH 26.0(L) 27.0 - 32.0 pcg LAB HEMETOLOGY METHOD 04/04/2024 10:13 AM [facility] MCHC 28.4(L) 32.0 - 37.0 g/dL LAB HEMETOLOGY METHOD 04/04/2024 10:13 AM [facility] RDW 17.5(H) 11.0 - 15.0 % LAB HEMETOLOGY METHOD 04/04/2024 10:13 AM [facility] Platelets 273 130 - 400 K/mcL LAB HEMETOLOGY METHOD 04/04/2024 10:13 AM [facility] MPV 10.8 7.0 - 11.0 FL LAB HEMETOLOGY METHOD 04/04/2024 10:13 AM [facility] NRBC 0.0 <1.0 % LAB HEMETOLOGY METHOD 04/04/2024 10:13 AM [facility] NRBC Absolute 0.00 <0.10 K/mcL LAB HEMETOLOGY METHOD 04/04/2024 10:13 AM [facility] Blood Venous blood specimen / Unknown 04/04/2024 8:00 AM EST 04/04/2024 9:58 AM EST us Johny Bennett MD LAB BLOOD ORDERABLES Final R esult [facility] [address] [place] [address], documented in this encounter Visit Diagnoses Diagnosis Chronic kidney disease, unspecified Monoclonal gammopathy Monoclonal paraproteinemia Nutritional anemia, unspecified documented in this encounter Care Teams Glass Blower Helper Relationship Specialty Start Date End Date Grayson Berrios DO [address] [place] [phone] PCP - General 08/22/15 documented as of this encounter
--- OUTSIDE RECORDS SUMMARY | 2024-09-29 10:55 | XMS_ITS | Encounter Summary ---
Author Organization [facility] Address [address] [place] [address] Care Team Providers Care Pyroglazer Name Role Phone Grayson Berrios DO Primary Care Provider [phone] Encounter Details Date Type Department Care Team (Late st Contact Info) Description 04/11/2024 Lab Requisition [facility] - Main Lab [address] [facility] [address] [facility] [place] [address] Meghana Hayden PA [address] [place] [phone] Frequency of micturition; Anemia, unspecified Social [...] Info) Description 10/03/2024 8:[address] [facility] 271 [facility] 2nd [place] [phone] 10/05/2024 7:45 AM EDT Clinical Support Gastroenterology - 299 [facility] [address] [address] 10/07/2024 10:30 AM EDT Office Visit Gastroenterology - [address] [address] Isela Ibanez NP [address] [address] 11/03/2024 10:15 AM EDT Office Visit [facility] Hematology Oncology 271 [place] [address] Johny Bennett MD 271 [place] [address] 11/08/2024 11:[address] [facility] CT Scan 271 [place] [address] 11/14/2024 1:30 PM EDT Consult Vascular Surgery - [place] 300 [facility] [address] [place] [address] Peter Thorne MD [address] [address] 11/17/2024 10:00 AM EDT Office Visit Pulmonolgy - [place] 175 [facility] 200 [place] [address] Jessica Neal MD 175 [facility] 200 [place] [address] 03/30/2025 1:30 PM EDT Office Visit Gastroenterology - [address] [phone] Kathleen Sethi PA [address] [address] documented as of this encounter Procedures Procedure [...] paraffin embedded. Technical cytopathology services provided by [facility], at [address] [place] [address] (CLIA # [id number]/Sonia Singleton MD, [facility].) 04/13/2024 4:06 PM [facility] Urine Urine specimen obtained by clean catch procedure / Unknown 04/08/2024 04/11/2024 10:49 AM EST us Meghana WHITAKER LAB CYTOLOGY ORDERABLES Wendie l Result [facility] 299 [place] [address], documented in this encounter Visit Diagnoses Diagnosis Frequency of micturition Urinary frequency Anemia, unspecified documented in this encounter Care Teams Pyroglazer Relationship Specialty Start Date End Date Grayson Berrios DO [address] [place] [phone] PCP - General 08/22/15 documented as of this encounter
--- OUTSIDE RECORDS SUMMARY | 2024-09-29 10:55 | XMS_ITS | Encounter Summary ---
Author Organization [facility] Address [address] [place] [address] Care Team Providers Care Custodial Operations Manager Name Role Phone Raquelgenedoreen Grayson Primary Care Provider [phone] Encounter Details Date Type Department Care Team [...] [facility] [address] [place] [phone] 10/05/2024 7:45 AM EDT Clinical Support Gastroenterology - [address] [phone] 10/07/2024 10:30 AM EDT Office Visit Gastroenterology - [address] [phone] Isela Ibanez NP [address] [address] 11/03/2024 10:15 AM EDT Office Visit [facility] Hematology Oncology [address] [place] [phone] Johny Bennett MD 271 [place] [address] 11/08/2024 11:[address] [facility] CT Scan [address] [place] [phone] 11/14/2024 1:30 PM EDT Consult Vascular Surgery - [place] [address] [place] [address] Peter Thorne MD 300 [facility] 210 [place] [address] 11/17/2024 10:00 AM EDT Office Visit Pulmonolgy - [place] 175 [facility] 200 [place] [address] Jessica Neal MD 175 [facility] 200 [place] [address] 03/30/2025 1:30 PM EDT Office Visit Gastroenterology - [address] [facility] [address] [facility] [address] [place] [address] Kathleen Sethi PA 299 [facility] [address] [place] [address] documented as of this encounter Visit Diagnoses Diagnosis Chronic kidney disease, stage 3a (CMS/HCC V24, CMS/HCC V28) documented in this encounter Care Teams Custodial Operations Manager Relationship Specialty Start Date End Date Grayson Berrios DO [address] [place] [phone] PCP - General 08/22/15 documented as of this encounter
--- OUTSIDE RECORDS SUMMARY | 2024-09-29 10:55 | XMS_ITS | Clinical Summary ---
Author Organization [facility] Address [address] [place] [address] Care Team Providers Care Engraving Supervisor Name Role Phone Grayson Berrios DO Primary Care Provider [phone] Allergies No known active allergies Medications Medication [...] age to complete this topic Care Teams Engraving Supervisor Relationship Specialty Start Date End Date Grayson Berrios DO [address] [place] [address] PCP - General Internal Medicine 12/26/22
--- OUTSIDE RECORDS SUMMARY | 2024-09-29 10:55 | XMS_ITS | Encounter Summary ---
Author Organization [facility] Address [address] [place] [address] Care Team Providers Care Building Analyst/Supervisor Name Role Phone Yash Grayson Primary Care Provider [phone] Reason for Visit * Reason Comments Follow-up Iron deficiency Encounter Details Date Type Department Care Team (Late st Contact Info) Description 09/28/2024 8:00 AM EDT Office Visit Gastroenterology - [address] [place] [phone] Kathleen Sethi PA [address]h [address] [place] [phone] Acute on chronic blood loss anemia (Primary Dx); Alcoholic cirrhosis of liver without ascites (CMS/HCC V24, CMS/HCC V28) Social History Tobacco [...] - Inhaled Oxygen Concentration - - Weight 80.3 kg (177 lb) 09/28/2024 8:08 AM EDT Height 172.7 cm (5' 8 ) 09/28/2024 8:08 AM EDT Body Mass Index 26.91 09/28/2024 8:08 AM EDT documented in this encounter Progress Notes * JULIANNE Florez - 09/28/2024 8:00 AM EDTAssociated Problem(s): Liver cirrhosis (CMS/HCC V24, CMS/HCC V28) LFTs are low to normal based on most recent lab work. Recent CTA completed shows no hepatoma. Recall 6 months for routine surveillance with lab work and ultrasound. * JULIANNE Florez - 09/28/2024 8:00 AM EDT CHIEF COMPLAINT: Follow-up (Iron deficiency) HPI: Kiran Law is a 74 y.o. old male who was originally referred to us by Grayson Berrios DO now presents to the gastroenterology department today for a follow up of DELMA and GI bleed. Hospital admission 07/29/24 and again 08/23/24 for GI bleed. EGD completed on both August 02 and 2024. 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 Last colonoscopy August 03 2023. It seems he was told to book an outpatient colonoscopy for August of this year but he is unsure if he completed that. Records do not reflect a colonoscopy from my review, however a capsule study was scheduled for August but was resheduled to October 05. Followed by Dr. Bennett, with CBCs drawn every Thursday. 5 weeks since he has required a transfusion. Doing well Denies hematochezia, melena, abdominal pain, abdominal distention, or nausea/vomiting. H/o liver cirrhosis Since 2010 has stopped drinking. ROS: GENERAL: No malaise, significant weight loss or fever HEENT: No changes in hearing or vision, nose bleeds or swallowing problems NECK: No lumps, goiter, pain or significant neck swelling RESPIRATORY: No cough, wheezing or shortness of breath CARDIOVASCULAR: No chest pain, leg swelling or palpitations GI: see above MUSCULOSKELETAL: No joint pain or swelling, back pain, or muscle pain. SKIN: No lesions, rash or itching The remainder of the review of systems is reviewed and negative. PROBLEM LIST: Patient Active Problem List Diagnosis Myelodysplastic syndrome ([facility] V24, [facility] V28) Anemia, unspecified type Iron deficiency CRF (chronic renal failure) BRBPR (bright red blood per rectum) Gastrointestinal hemorrhage, unspecified gastrointestinal hemorrhage type CHF (congestive heart failure) ([facility] V24, [facility] V28) CAD (coronary artery disease) Liver disease Chronic obstructive pulmonary disease ([facility] V24, [facility] V28) Chronic renal impairment, stage 3 (moderate) ([facility] V24, [facility] V28) Dysrhythmias Drug therapy Benign hypertensive renal disease Atrial fibrillation ([facility] V24, [facility] V28) Alcohol abuse BPH (benign prostatic hyperplasia) Chronic blood loss anemia Chronic respiratory failure with hypoxia ([facility] V24, [facility] V28) Clear cell carcinoma of kidney ([facility] V24, [facility] V28) Depressive disorder Diabetes type 2, controlled ([facility] V24, [facility] V28) Dyslipidemia Essential hypertension, benign Malaise and fatigue Obesity, unspecified Congestive heart failure ([facility] V24, [facility] V28) (HFpEF) heart failure with preserved ejection fraction ([facility] V24, [facility] V28) COPD with emphysema ([facility] V24, [facility] V28) COPD (chronic obstructive pulmonary disease) ([facility] V24, [facility] V28) Stage 3a chronic kidney disease ([facility] V24, [facility] V28) Liver cirrhosis ([facility] V24, [facility] V28) Past Medical History: Diagnosis Date Alcohol abuse, unspecified 05/05/2005 DX:Alcohol abuse, unspecified Arteritis, unspecified ([facility] V24) DX:Arteritis, unspecified (HCC) Atrial fibrillation ([facility] V24, [facility] V28) AVM (arteriovenous malformation) BPH (benign prostatic hyperplasia) DX:BPH (benign prostatic hyperplasia) CAD (coronary artery disease) CHF (congestive heart failure) ([facility] V24, [facility] V28) DX:CHF (congestive heart failure) ([facility]) Chronic hypoxic respiratory failure ([facility] V24, [facility] V28) on 2L O2 CKD (chronic kidney disease) Congestive heart failure, unspecified 08/10/2006 DX:Congestive heart failure, unspecified; COMMENT: EF 25-30% echo 07/08 COPD (chronic obstructive pulmonary disease) ([facility] V24, [facility] V28) DX:COPD (chronic obstructive pulmonary disease) ([facility]) Diabetes mellitus ([facility] V24, [facility] V28) DX:Diabetes mellitus (HCC) Essential hypertension, benign 05/05/2005 DX:Essential hypertension, benign GI bleed History of kidney cancer DX:History of kidney cancer Hyperlipidemia Hypertension DX:Hypertension Liver cirrhosis ([facility] V24, [facility] V28) Myelodysplastic syndrome ([facility] V24, [facility] V28) Pulmonary hypertension ([facility] V24, [facility] V28) DX:Pulmonary hypertension (HCC) Renal cancer ([facility] V24, [facility] V28) PAST SURGICAL HISTORY: Past Surgical History: Procedure Laterality Date BONE MARROW BIOPSY NEPHRECTOMY Right PROCEDURE:NEPHRECTOMY TOTAL HIP ARTHROPLASTY Right TRANSURETHRAL RESECTION OF PROSTATE WATCHMAN IMPLANT SOCIAL HISTORY: Social History Tobacco Use Smoking status: Former Current packs/day: 0.00 Types: Cigarettes Quit date: 12/31/2010 Years since quittin.7 Passive exposure: Past Smokeless tobacco: Never Tobacco comments: Quit 2012 Substance Use Topics Alcohol use: Not Currently Comment: Quit 2011, history of heavy consumption FAMILY HISTORY: Family History Problem Relation Name Age of Onset Hypertension Mother Other (Other: Other) Mother PVD ACTIVE MEDICATIONS: Current Outpatient Medications Medication Sig Dispense Refill albuterol HFA (PROAIR HFA ; PROVENTIL HFA ; VENTOLIN HFA) 90 mcg/actuation inhaler Inhale 2 puffs by mouth every 6 (six) hours if needed for wheezing or shortness of breath. ascorbic acid (VITAMIN C) 500 mg tablet Take 1 tablet (500 mg total) by mouth 1 (one) time each day. Breo Ellipta 200-25 mcg/dose inhaler Inhale 1 puff by mouth 1 (one) time each day. budesonide-formoteroL (SYMBICORT) 160-4.5 mcg/actuation inhaler Inhale by mouth. cyanocobalamin (VITAMIN B-12) 1,000 mcg tablet Take 1 tablet (1,000 mcg total) by mouth 1 (one) time each day. Eliquis 5 mg tablet Take 1 tablet (5 mg total) by mouth. ezetimibe (ZETIA) 10 mg tablet Take 1 tablet (10 mg total) by mouth 1 (one) time each day. ferrous sulfate 325 mg (65 mg elemental iron) tablet Take 1 tablet (325 mg total) by mouth 2 (two) times a day. 60 each 0 fluticasone furoate-vilanteroL (Breo Ellipta) 200-25 mcg/dose inhaler Inhale 1 puff by mouth 1 (one) time each day. 3 each 3 glipiZIDE (GLUCOTROL) 10 mg tablet Take 1 tablet (10 mg total) by mouth 1 (one) time each day. Incruse Ellipta 62.5 mcg/actuation inhalation Inhale 1 puff by mouth 1 (one) time each day. 3 each 3 lisinopriL (PRINIVIL,ZESTRIL) 2.5 mg tablet Take 1 tablet (2.5 mg total) by mouth 1 (one) time eachday. metFORMIN (GLUCOPHAGE) 500 mg tablet Take 1 tablet (500 mg total) by mouth 2 times daily. omeprazole (PriLOSEC) [address] capsule Take 1 capsule (40 mg total) by mouth 1 (one) time each day. potassium chloride 20 mEq tablet extended release Take 20 mEq by mouth 3 (three) times a day. pravastatin (PRAVACHOL) 80 mg tablet Take 1 tablet (80 mg total) by mouth at bedtime. torsemide (DEMADEX) 20 mg tablet Take 1 tablet (20 mg total) by mouth 1 (one) time each day. No current facility-administered medications for this visit. ALLERGIES: No Known Allergies PHYSICAL EXAM: Visit Vitals Ht 1.727 m (68 ) Wt 80.3 kg (177 lb) BMI 26.91 kg/m?? Smoking Status Former BSA 1.94 m?? APPEARANCE: Alert and in no acute distress. On O2, poor historian. Presents with who answers most questions. EYES: PERRLA, conjunctiva and sclera normal. ABDOMEN: soft non tender, no ascites, guarding, or rebound, no organomegaly. EXTREMITIES: Extremities warm and well perfused SKIN: Skin color, texture, turgor normal. NEURO: Awake, alert and oriented, normal ROM LABS: Lab Results Component Value Date WBC 5.3 09/26/2024 HGB 10.5 (L) 09/26/2024 HCT 33.7 (L) 09/26/2024 MCV 104.7 (H) 09/26/2024 PLT 180 09/26/2024 Lab Results Component Value Date NA 136 08/30/2024 K 4.0 08/30/2024 CL 95 (L) 08/30/2024 CO2 38 (H) 08/30/2024 BUN 28 (H) 08/30/2024 CREATININE 1.61 (H) 08/30/2024 CALCIUM 8.1 (L) 08/30/2024 PROT 5.5 (L) 08/23/2024 BILITOT 0.5 08/23/2024 ALKPHOS 31 (L) 08/23/2024 ALT 13 08/23/2024 AST 27 08/23/2024 GLUCOSE 141 (H) 08/30/2024 CT Angio Abdomen Pelvis wo and/or w Contrast Narrative: INDICATION: GI bleed CT angiography abdomen and [...] anasarca. No evidence of active GI bleed. Impression: 1. No evidence of active GI bleed. 2. Bilateral common iliac artery aneurysms. Attention on follow-up. 3. Nonobstructive punctate 2 mm calculus in the left midpole kidney. 4. Additional findings as described. This document has been electronically signed by: Steve Lopez MD on 08/26/2024 21:39:14 Assessment/Plan Assessment & Plan Acute on chronic blood loss anemia Patient doing well today with no GI concerns. Denies melena today. Is followed by Dr. Bennett for weekly labs and reports he has not required a blood transfusion for the last 5 weeks. Capsule endoscopy as scheduled. Will confirm whether or not he is due for repeat colonoscopy with Dr. Beasley. Alcoholic cirrhosis of liver without ascites (CMS/HCC V24, CMS/HCC V28) LFTs are low to normal based on most recent lab work. Recent CTA completed shows no hepatoma. Recall 6 months for routine surveillance with lab work and ultrasound. Follow up in about 6 months (around 03/30/2025), or sooner pending anemia workup and GI bleeding. Gastroenterology and Hepatology Practice [facility] [email or web address] [phone] [facility] [place] [address] JULIANNE Florez documented in this encounter Plan of Treatment Upcoming Encounters Date Type Department Care Team (Late st Contact Info) Description 10/03/2024 8:30 AM EDT Appointment [facility] [address] [facility] 2nd [place] [phone] 10/05/2024 7:45 AM EDT Clinical Support Gastroenterology - [address] [phone] 10/07/2024 10:30 AM EDT Office Visit Gastroenterology - [address] [phone] Isela Ibanez NP [address] [address] 11/03/2024 10:15 AM EDT Office Visit [facility] Hematology Oncology [address] [place] [phone] Johny Bennett MD [address] [place] [address] 11/08/2024 11:00 AM EDT Appointment [facility] CT Scan [address] [place] [phone] 11/14/2024 1:30 PM EDT Consult Vascular Surgery - [place] [address] [phone] Peter Thorne MD [address] [address] 11/17/2024 10:00 AM EDT Office Visit Pulmonolgy - [place] [address] [phone] Jessica Neal MD [address] [address] 03/30/2025 1:30 PM EDT Office Visit Gastroenterology - [address] [phone] Kathleen Sethi PA [address] [phone] documented as of this encounter Visit Diagnoses Diagnosis Acute on chronic blood loss anemia- Primary Alcoholic cirrhosis of liver without ascites (CMS/HCC V24, CMS/HCC V28) documented in this encounter Historical Medications * This list may reflect changes made after this encounter. budesonide-formot Kandice (SYMBICORT) 160-4.5 mcg/actuation inhaler Inhale by mouth. metFORMIN (GLUCOPHAGE) 500 mg tablet Take 1 tablet (500 mg total) by mouth 2 times daily. lisinopriL (PRINIVIL,ZESTRIL ) 2.5 mg tablet Take 1 tablet (2.5 mg total) by mouth 1 (one) time each day. 03/29/2021 glipiZIDE (GLUCOTROL) 10 mg tablet Take 1 tablet (10 mg total) by mouth 1 (one) time each day. Eliquis 5 mg tablet Take 1 tablet (5 mg total) by mouth. 12/31/2023 added in this encounter Care Teams Building Analyst/Supervisor Relationship Specialty Start Date End Date Grayson Berrios DO [address] [place] [phone] PCP - General 08/22/15 documented as of this encounter
--- OUTSIDE RECORDS SUMMARY | 2024-09-29 10:55 | XMS_ITS ---
Author Organization [facility] Address [address] [place] [address] Phone Care Team Providers Care Electronics Recycler Name Role Phone RaquelGrayson hamm Primary Care Provider [phone] Active Problems Problem Noted Date Diagnosed Date Liver cirrhosis ([facility] V24, [facility] V28) 09/28 Assessment & Plan (09/28/2024 1:00 PM EDT): LFTs are low to normal based on most recent lab work. Recent CTA completed shows no hepatoma. Recall 6 months for routine surveillance with lab work and ultrasound. Chronic blood loss anemia 09/20/2024 Drug therapy 09/05/2024 Gastrointestinal hemorrhage, unspecified gastrointestinal hemorrhage type 08/24/2024 CHF (congestive heart failure) ([facility] V24, [facility] V28) 08/24/2024 CAD (coronary artery disease) 08/24/2024 Liver disease 08/24/2024 Chronic obstructive pulmonar y disease ([facility] V24, [facility] V28) 08/24/2024 Chronic renal impairment, st age 3 (moderate) ([facility] V24, [facility] V28) 08/24/2024 Dysrhythmias 08/24/2024 BRBPR (bright red blood per rectum) 07/29/2024 BPH (benign prostatic hyperplasia) 07/17/2024 Chronic respiratory failure with hypoxia ([facility] V24, [facility] V28) 07/17/2024 Clear cell carcinoma of kidney ([facility] V24, [facility] V28) 07/17/2024 Dyslipidemia 07/17/2024 (HFpEF) heart failure with p reserved ejection fraction ([facility] V24, [facility] V28) 07/17/2024 COPD with emphysema ([facility] V24, [facility] V28) 0 07/17/2024 CRF (chronic renal failure) 06/16/2024 Iron deficiency 05/27/2024 Anemia, unspecified type 05/24/2024 Myelodysplastic syndrome ([facility] V24, [facility] V 28) 04/06/2024 Diabetes type 2, controlled ([facility] V24, [facility] V28) 01/25/2024 COPD (chronic obstructive pu lmonary disease) ([facility] V24, [facility] V28) 01/25/2024 Benign hypertensive renal disease 11/26/2020 Stage 3a chronic kidney disease ([facility] V24, [facility] V[facility]) 11/26/2020 Depressive disorder 01/01/2007 Congestive heart failure ([facility] V24, [facility] V 28) 08/10/2006 Overview (09/20/2024): EF 25-30% echo 07/08, cath negative IMO update Atrial fibrillation ([facility] V24, [facility] V28) 0 07/18/2005 Malaise and fatigue 07/18/2005 Obesity, unspecified 07/18/2005 Alcohol abuse 05/05/2005 Essential hypertension, benign 05/05/2005 Current Oncology Plans FERUMOXYTOL ( FERAHEME ) 510 mg IVPB* Plan Start Date:08/09/2024 Plan Provider:Johny Bennett MD Linked Problems Myelodysplastic syndrome ( S/[facility] V24, [facility] V28)Anemia, unspecified typeIron deficiency Treatment Medications No medications scheduled. OUTPATIENT TRANSFUSION (PRN)* Plan Start Date:04/06/2024 Plan Provider:Johny Bennett MD Linked Problems Myelodysplastic syndrome ( S/HCC V24, CMS/HCC V28) Treatment Medications No medications scheduled. Other [...] treatments are documented for this patient in [facility]. Treatments may have been administered in another system.
== END 2024-09-29 10:06 | disposition home or self-care (01) ==
LOC: HO.HKA 09:49
PROVIDERS: PCP Internal Medicine; Visit Provider Internal Medicine Hypertension Specialist
DX: I10 Essential (primary) hypertension (principal); N18.32 Chronic kidney disease, stage 3b; Z90.5 Acquired absence of kidney
CPT/HCPCS: 99214

== ENCOUNTER → 2024-09-29 09:49 | Outpatient (BNVA) | payer MEDICARE, SELFPAY | PROVIDERS: PCP Internal Medicine; Visit Provider Internal Medicine Hypertension Specialist | DX: I12.9 Hypertensive chronic kidney disease with stage 1 through stage 4 chronic kidney disease, or unspecified chronic kidney disease (principal); N18.32 Chronic kidney disease, stage 3b; Z90.5 Acquired absence of kidney | CPT/HCPCS: 99212 ==

== ENCOUNTER 2024-12-08 10:57 | Outpatient (AMB) | payer MEDICARE, SELFPAY ==
--- NOTE | 2024-12-08 11:19 | A.OFFVIS_ITS ---
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 Required: No Accompanied by: Spouse Allergies No Known Allergies Allergy (Verified 09/29/24 09:53) Medication List - Last Reconciled 12/08/24 by Mateo Bird MD albuterol sulfate 90 mcg/actuation 2 inhalations inhalation QID PRN ascorbic acid (vitamin C) 500 mg PO DAILY cyanocobalamin (vitamin B-12) 1,000 mcg PO DAILY ezetimibe 10 mg PO DAILY ferrous gluconate 324 mg PO DAILY fluticasone furoate-vilanterol 100-25 mcg/dose (Breo Ellipta) 1 inh inhalation DAILY metolazone 2.5 mg PO DAILY PRN omeprazole 40 mg PO DAILY@0630 potassium chloride ER 20 mEq PO TID pravastatin 80 mg PO DAILY torsemide 40 mg (2 x 20 mg) PO BID umeclidinium 62.5 mcg/actuation (Incruse Ellipta) 1 inh inhalation DAILY HPI Comments Details: Deny comes for follow-up accompanied by his . Since I last saw him he said he has been doing very well. He has not had any hospitalization related to heart failure. He has anemia count is significantly improved in his not require blood transfusion as per the for the last 10 weeks. His hemoglobin is 12.3 and he said he feels more energy and less short of breath. As per the he is not that active around the house but he takes care of his acts of daily living. Denies any orthopnea, PND. Leg edema has remained stable. Takes his diuretics on a regular basis. No recent basic metabolic profile. No overt bleeding. No palpitations. [facility] Medical History Chronic heart failure with preserved ejection fraction (HFpEF) Chronic a-fib Severe anemia Hypokalemia Macrocytic anemia Partial small bowel obstruction Anemia CHF (congestive heart failure) Diabetes mellitus CKD (chronic kidney disease) HTN (hypertension) Biatrial enlargement Pulmonary hypertension HLD (hyperlipidemia) Current use of anticoagulant therapy Surgical History Hx of total hip arthroplasty Hx of colonoscopy Hx of esophagogastroduodenoscopy History of nephrectomy Hx of hernia repair Family History Father Cancer Mother No problems noted. Social History Household Members: Significant Other Housing: House Do you presently have visiting nurse or other home services: No Comment: refused bed alarm Patient Tobacco Use Status: Former Tobacco user Second Hand Smoke Exposure: No Advance Directives Date on File: 06/01/00 service: No Review of Systems Const Denies chills, Denies fatigue, Denies fever(s), Denies frequent falls, Denies weakness, Denies weight gain and Denies weight loss ENT Denies dizziness Card Denies chest pain, Denies leg edema, Denies lightheadedness, Denies palpitations, Denies dyspnea and Denies dyspnea on exertion Resp Denies cough, Denies dyspnea and Denies dyspnea on exertion GI Denies hematochezia Musc Denies abnormal gait, Denies muscle weakness, Denies numbness, Denies radiating pain into limb and Denies tingling Neuro Denies abnormal gait, Denies dizziness, Denies frequent falls, Denies numbness, Denies tingling and Denies weakness Endo Denies fatigue and Denies palpitations Physical Exam Vital Signs: Last Vital Signs Pulse 65 12/08/24 11:22 BP 110/58 L 12/08/24 11:22 BMI result Body Mass Index 26.8 Const Other: wearing O2 with nasal cannula General: cooperative, comfortable, no acute distress, alert, awake and tired appearing Nutritional Appearance: average body habitus Orientation/consciousness: patient oriented x3 Neck Neck: No no JVD Resp Effort & Inspection: normal respiratory effort Auscultation: no rhonchi, no wheezes and diminished lung sounds Cardio Jugular venous distension: no JVD Rate: regular rate Rhythm: abnormal rhythm Heart sounds: S1 normal heart sound present, S2 normal heart sound present, no click, no murmurs and no rubs GI Inspection: Yes normal to inspection Skin General skin exam: ecchymosis Neuro General: patient oriented x3 Extrem Other: edema in lower legs, R>L, mid calf down to feet General: No clubbing, No cyanosis, No edema and Yes venous stasis dermatitis Psych Appearance: grossly normal Mental Status: mental status grossly normal Speech and movement: Normal speech and movement present Office Procedures EKG Details: EKG shows atrial fibrillation with PVCs with right bundle-branch block 06805-[id number], Complete Assessment & Plan Assessment & Plan (1) Chronic heart failure with preserved ejection fraction (HFpEF): Code(s): I50.32 - Chronic diastolic (congestive) heart failure Category: Medical Plan: Heart failure preserved ejection fraction doing very well from cardiac perspective and has had no hospitalization with improved quality of life especially maintaining a his hematocrit has helped him significantly. Continue to monitor that he is being followed by Hematology in his currently on iron supplementation. He is currently on high dose diuretics in his advise monthly follow up of his basic metabolic profile as well as electrolytes. Daily weight monitoring avoidance salt loading was discussed. Continue oxygen therapy for his chronic respiratory failure. He has multiple comorbidities including deconditioning, chronic respiratory failure, chronic kidney disease, recurrent anemias as well as pulmonary hypertension as well as chronic atrial fibrillation (2) Chronic a-fib: Code(s): I48.20 - Chronic atrial fibrillation, unspecified Category: Medical Plan: Chronic atrial fibrillation, currently rate controlled. Status post Watchman device. Currently on no rate control therapy and heart rate appears to be well controlled. Currently off all antiplatelet therapy with increase his cuff thrombosis although he has done very well with maintaining his hematocrit. Will continue to watch. Will follow up in the clinic in 3 months time after an echocardiogram. Thank you for allowing me to partake in his care Orders: Orders Basic Metabolic Panel Today I48.20 - Chronic atrial fibrillation, unspecified CA echo transthoracic complete 3 Months I50.32 - Chronic diastolic (congestive) heart failure Magnesium Today I48.20 - Chronic atrial fibrillation, unspecified Digoxin Today I48.20 - Chronic atrial fibrillation, unspecified Coding Level of Care Code Est Pt Level 4 (50331) Complex EM visit Add On G2211 Diagnoses Chronic heart failure with preserved ejection fraction (HFpEF) I50.32 Chronic a-fib I48.20 CPT Codes EKG - CPT: 18670-[id number], Complete ([id number])
[2024-12-08 11:22] VITALS: BP 110/58; PULSE 65; BMI 26.8
--- OUTSIDE RECORDS SUMMARY | 2024-12-08 11:39 | XMS_ITS | Clinical Summary ---
Author Organization [facility] Address [address] [place] [address] Care Team Providers Care Marble Cutter Name Role Phone Grayson Berrios DO Primary Care Provider [phone] Allergies No known active allergies Medications Medication [...] 62 03/09/2024 4:01 PM EDT Temperature 36.9 C (98.4 F) 03/09/2024 4:01 PM EDT Respiratory Rate 16 03/09/2024 4:01 PM EDT [...] 2024 01/24/2022, 03/12/2021, 08/24/2020, Additional history exists RSV Adult > 60+ Yrs or (1 - 1-dose 75+ series) 2024 Influenza Vaccine (#1) 2025 2, 04/05/2021, 02/01/2020, Additional history exists Hepatitis B Vaccines Aged Out No long er eligible based on patient's age to complete this topic RSV Ped < 20 months Aged Out No longe r eligible based on patient's age to complete this topic Care Teams Marble Cutter Relationship Specialty Start Date End Date Grayson Berrios DO [address] [place] [id number] PCP - General Internal Medicine 12/26/22
--- OUTSIDE RECORDS SUMMARY | 2024-12-08 11:39 | XMS_ITS | Clinical Summary ---
Author Organization [facility] Address [address] [facility] [address] [place] [address] Phone Care Team Providers Care Shovel Handle Assembler Name Role Phone Grayson Berrios DO Primary Care Provider [phone] Allergies No known active allergies Medications albuterol [...] Colonoscopy 1998 Colorectal Cancer Screening: Sigmoidoscopy 1998 Hepatitis B Vaccine (1 of 3 - Risk 3-dose series) 2009 Pneumococcal Vaccine: 50+ Ye ars (3 of 3 - PCV20 or PCV21) 03/13/2018 02/16/2015, 03/13/2013 Diabetes: Hemoglobin A1C 10/05/2024 01/10/2019 Diabetes: Ophthalmology Exam 10/05/2024 Diabetes: Pedal Pulse Checked 10/05/2024 Diabetes: Sensory Foot Exam 10/05/2024 Diabetes: Visual Foot Exam 10/05/2024 Influenza Vaccine (#1) 2025 Pneumococcal Vaccine: Peds ( 0 to 5 Years) and At-Risk Patients (6 to 49 Years) Discontinued 02/16/2015, 03/13/2013 Procedures Procedure Name Priority Date/Time Associated Diagnosis Comments BLOOD PANEL (HC) Routine 01/10/2019 12:0 0 AM EDT from Last 3 Months or Most Recently Relevant to Health Maintenance Results * (ABNORMAL) Blood Panel (01/10/2019 12:00 AM EDT) Potassium 4.3 3.5 - 5.1 mmol/L [facility] BUN 22(H) 9 - 20 mg/dl [facility] Hgb 13.1 13.0 - 16.5 g/dl [facility] Sodium 137 137 - 145 mmol/L [facility] Creatinine 1.6(H) 0.70 - 1.30 mg/dl [facility] Hematocrit 40.9 38 - 50 % [facility] Cholesterol 105 <200 mg/dl [facility] Triglycerides 126 <150 mg/dl [facility] LDL,Direct 54 <130 mg/dl [facility] Carbon Dioxide (CO2) 28.4 22 - 30 mmol/L [facility] Calcium 8.0(L) 8.4 - 10.2 mg/dl [facility] eGFR Non- 43(L) >60 ml/min [facility] HDL 25(L) >40 mg/dl [facility] Platelets 253 140 - 440 k/uL [facility] Hemoglobin A1C 8.0(H) <5 % [facility] 01/10/2019 us [facility] Conversion [facility] [id number] LICITED RESULTS Final Result [facility] from Last 3 Months or Most Recently Relevant to Health Maintenance [place] [address] [place] [address] [place] [address] Care Teams Shovel Handle Assembler Relationship Specialty Start Date End Date Grayson Berrios DO [address] [place] [address] PCP - General 06/11/20
--- OUTSIDE RECORDS SUMMARY | 2024-12-08 11:39 | XMS_ITS | Encounter Summary ---
Author Organization [facility] Address [address] [place] [address] Care Team Providers Care Fish And Wildlife Biologist Name Role Phone RaquelgeneyanetGrayson jones Primary Care Provider [phone] Encounter Details Date Type Department Care Team (Late st Contact Info) Description 10/14/2024 Lab Requisition [facility] - Main Lab [address] [facility] [place] [address] Aakash Johnson MD [address] [place] [address] Monoclonal gammopathy Social History Tobacco Use Types Packs/Day Years [...] Care Team (Late st Contact Info) Description 12/12/2024 8:30 AM EDT Appointment [facility] Infusion Center [address] [facility] 2nd [place] [address] Johny Bennett MD [address] [place] [address] 01/16/2025 11:00 AM EDT Appointment [facility] CT Scan [address] [place] [address] 02/17/2025 10:15 AM EDT Appointment [facility] CT Scan [address] [place] [address] 02/17/2025 11:00 AM EDT Office Visit Vascular Surgery - [facility] [address] [address] Peter Thorne MD [address] [address] 02/23/2025 11:00 AM EDT Office Visit Pulmonolgy - [facility] [address] [phone] Jessica Neal MD [address] [address] 03/01/2025 10:30 AM EDT Office Visit [facility] Hematology Oncology [address] [place] [address] Johny Bennett MD [address] [place] [address] 03/30/2025 1:30 PM EDT Office Visit Gastroenterology - [address] [phone] Kathleen Sethi PA [address] [address] documented as of this encounter Procedures Procedure Name Priority Date/Time Associated Diagnosis Comments HISTORICAL SURGICAL PATHOLOGY CASE Routine 10/14/2024 8:38 AM EDT Monoclonal gammopathy documented in this encounter Results * Historical Pathology Case (10/14/2024 8:38 AM EDT) Final Diagnosis 10/28/2024 1:37 PM EDT [facility] Clinical Information Historical case created for slide request from [facility] ([facility]) 10/28/2024 1:37 PM EDT [facility] Gross Description A. Bone Marrow Aspirate, A-M asp, core bx, clot: At the request of [facility] Dr. Singh [id number] - (17) slides sent: [facility] -Pathology processing (RICKY) [address], [address] [place] [address] FEDEX # [id number] 07/18/24 - KK 10/28/2024 1:37 PM EDT [facility] Disclaimer Unless otherwise specified, all tissue is 10% NB formalin fixed and paraffin embedded. 10/28/2024 1:37 PM EDT [facility] Tissue Specimen from bone marrow obtained by aspiration / Unknown 10/14/2024 8:38 AM EDT 10/14/2024 8:39 AM EDT us Aakash Johnson MD LAB PATHOLOGY ORDERABLES Final Result [facility] [address] [place] [address], documented in this encounter Visit Diagnoses Diagnosis Monoclonal gammopathy Monoclonal paraproteinemia documented in this encounter Care Teams Fish And Wildlife Biologist Relationship Specialty Start Date End Date Grayson Berrios DO [address] [place] [phone] PCP - General 08/22/15 documented as of this encounter
== END 2024-12-08 11:37 | disposition home or self-care (01) ==
LOC: HO.HCS 10:57
PROVIDERS: PCP Internal Medicine; Visit Provider Internal Medicine Cardiovascular Disease
DX: I50.32 Chronic diastolic (congestive) heart failure (principal); I48.20 Chronic atrial fibrillation, unspecified
CPT/HCPCS: 93010; 99214; G2211

== ENCOUNTER → 2024-12-08 10:57 | Outpatient (BNVA) | payer MEDICARE, SELFPAY | PROVIDERS: PCP Internal Medicine; Visit Provider Internal Medicine Cardiovascular Disease | DX: I50.32 Chronic diastolic (congestive) heart failure (principal); I48.20 Chronic atrial fibrillation, unspecified; I45.10 Unspecified right bundle-branch block; R94.31 Abnormal electrocardiogram [ECG] [EKG] | CPT/HCPCS: 93005; 99212 ==

== ENCOUNTER 2024-12-19 08:50 | Outpatient (REF) | payer MEDICARE, SELFPAY ==
--- OUTSIDE RECORDS SUMMARY | 2024-12-19 08:59 | XMS_ITS | Clinical Summary ---
Author Organization [facility] Address [address] [place] [address] Care Team Providers Care Sales Floor Associate Name Role Phone Grayson Berrios DO Primary Care Provider [phone] Allergies No known active allergies Medications Medication [...] age to complete this topic Care Teams Sales Floor Associate Relationship Specialty Start Date End Date Grayson Berrios DO [address] [place] [address] PCP - General Internal Medicine 12/26/22
--- OUTSIDE RECORDS SUMMARY | 2024-12-19 08:59 | XMS_ITS | Encounter Summary ---
Author Organization [facility] Address [address] [place] [address] Care Team Providers Care Spray Operator Name Role Phone RaquelgeneyanetGrayson jones Primary Care Provider [phone] Encounter Details Date Type Department Care Team (Late st Contact Info) Description 10/14/2024 Lab Requisition [facility] - Main Lab 299 [facility] [place] [address] Aakash Johnson MD [address] [place] [address] Monoclonal gammopathy Social History Tobacco Use Types [...] Care Team (Late st Contact Info) Description 12/26/2024 8:30 AM EDT Appointment [facility] Infusion Center [address] [facility] 2nd [place] [address] 01/16/2025 11:00 AM EDT Appointment [facility] CT Scan [address] [place] [address] 02/17/2025 10:15 AM EDT Appointment [facility] CT Scan [address] [place] [address] 02/17/2025 11:00 AM EDT Office Visit Vascular Surgery - [place] [address] [phone] Peter Thorne MD [address] [address] 02/23/2025 11:00 AM EDT Office Visit Pulmonolgy - [place] 175 [facility] [address] [place] [address] Jessica Neal MD [address] [address] 03/01/2025 10:30 AM EDT Office Visit [facility] Hematology Oncology [address] [place] [phone] Johny Bennett MD [address] [place] [address] 03/30/2025 1:30 PM EDT Office Visit Gastroenterology - 299 [facility] [address] [address] Kathleen Sethi PA [address] [address] documented as of this encounter Procedures Procedure Name Priority Date/Time Associated Diagnosis Comments HISTORICAL SURGICAL PATHOLOGY CASE Routine 10/14/2024 8:38 AM EDT Monoclonal gammopathy documented in this encounter Results * Historical Pathology Case (10/14/2024 8:38 AM EDT) Final Diagnosis 10/28/2024 1:37 PM EDT [facility] Clinical Information Historical case created for slide request from [facility] ([facility]) 10/28/2024 1:37 PM EDT [facility] Gross Description A. Bone Marrow Aspirate, A-M asp, core bx, clot: At the request of [facility] Dr. Singh [id number] - (17) slides sent: [facility] -Pathology processing (RICKY) [address] [facility] [address] [place] [address] FEDEX # [id number] 07/18/24 - KK 10/28/2024 1:37 PM EDT [facility] Disclaimer Unless otherwise specified, all tissue is 10% NB formalin fixed and paraffin embedded. 10/28/2024 1:37 PM EDT [facility] Tissue Specimen from bone marrow obtained by aspiration / Unknown 10/14/2024 8:38 AM EDT 10/14/2024 8:39 AM EDT us Aakash Johnson MD LAB PATHOLOGY ORDERABLES Final Result [facility] [address] [place] [address], documented in this encounter Visit Diagnoses Diagnosis Monoclonal gammopathy Monoclonal paraproteinemia documented in this encounter Care Teams Spray Operator Relationship Specialty Start Date End Date Grayson Berrios DO [address] [place] [phone] PCP - General 3/23/16 documented as of this encounter
--- OUTSIDE RECORDS SUMMARY | 2024-12-19 08:59 | XMS_ITS | Clinical Summary ---
Author Organization [facility] Address [address] [place] [address] Phone Care Team Providers Care Software Engineer Advisor Name Role Phone Self-Referred, Patient Unavailable Unavailab Johny Hopkins MD Unavailable [phone] Grayson Berrios DO Primary Care Provider [phone] Jesus Beasley MD Unavailable [phone] Medications albuterol 90 mcg/actuation inhaler 2 puffs every 4 (four) hours as needed. 05/04/2024 Active ascorbic acid, vitamin C, (VITAMIN C) 500 MG tablet Take 500 mg by mouth daily. Active clopidogrel (PLAVIX) 75 mg tablet Take 75 mg by mouth daily. Active digoxin (LANOXIN) 125 mcg tablet TAKE 1 TABLET BY MOUTH EVERY THURSDAY, THURSDAY, THURSDAY, AND THURSDAY AT 9PM Active ezetimibe (ZETIA) 10 mg tablet Take 10 mg by mouth daily. for 90 days Active ferrous sulfate 325 mg (65 mg pamunkey iron) tablet Take 1 tablet (325 mg total) by mouth every morning with breakfast. Active BREO ELLIPTA 200-25 mcg/dose inhaler Inhale 1 puff into the lungs daily. Active metFORMIN (GLUCOPHAGE) 500 MG tablet Take 500 mg by mouth 2 (two) times a day. Active metOLazone (ZAROXOLYN) 2.5 MG tablet TAKE 1 TABLET BY MOUTH ONCE DAILY FOR SWELLING Active omeprazole (PRILOSEC) 40 MG capsule Take 40 mg by mouth. 05/04/2024 Active pravastatin (PRAVACHOL) 80 MG tablet Take 80 mg by mouth daily. Active torsemide (DEMADEX) 20 MG tablet Take 2 tablets by mouth 2 (two) times a day. 07/07/2024 Active acetaZOLAMIDE (DIAMOX) 125 MG tablet Take 1 tablet by mouth 2 (two) times a day. 04/16/2024 Active cyanocobalamin, vitamin B-12, 1000 MCG tablet Take 1,000 mcg by mouth. Active Active Problems Problem Noted Date Diagnosed Date BPH (benign prostatic hyperplasia) 07/17/2024 Chronic respiratory failure with hypoxia 025 Clear cell carcinoma of kidney 07/17/2024 (HFpEF) heart failure with preserved ejection fr action 07/17/2024 COPD with emphysema 07/17/2024 Dyslipidemia 07/17/2024 CRF (chronic renal failure) 06/16/2024 Myelodysplastic syndrome 04/06/2024 Diabetes type 2, controlled 01/25/2024 Depressive disorder 01/01/2007 Atrial fibrillation 07/18/2005 Alcohol abuse 05/05/2005 Essential hypertension, benign 05/05/2005 Social History Tobacco Use Types Packs/Day Years Used Date Smoking Tobacco: Never Assessed Education Answer Date Recorded Are you interested in more education? Not on brayan e 06/30/2024 Are you concerned about learning? Not on file 06/30/2024 No 06/30/2024 No 06/30/2024 Digital Access Answer Date Recorded No 06/30/2024 No 06/30/2024 Reliable internet access at home? Not on file 06/30/2024 Device with a working camera? Not on file Sex and Gender Information Value Date Recorded Sex Assigned at Male 06/29/2024 9:33 AM EST Legal Sex Male 9:31 AM EST Gender Identity Male 06/29/2024 9:33 AM EST Sexual Orientation Straight 06/29/2024 9: 33 AM EST Last Filed Vital Signs Vital Sign Reading Time Taken Comments Blood Pressure 104/55 07/20/2024 1:16 PM EST Pulse 99 07/20/2024 1:16 PM EST Temperature 36.6 C (97.8 F) 07/20/2024 1:16 PM EST Respiratory Rate 18 07/20/2024 1:16 PM EST Oxygen Saturation 98% 07/20/2024 1:16 PM EST Inhaled Oxygen Concentration - - Weight 78.7 kg (173 lb 8 oz) 07/20/2024 1:16 PM EST Height 167.5 cm (5' 5.95 ) 07/20/2024 1:16 PM ES T Body Mass Index 28.05 07/20/2024 1:16 PM EST Plan of Treatment Upcoming Encounters Date Type Department Care Team (Late st Contact Info) Description 01/03/2025 10:10 AM EDT Blood Draw Laboratory Services, [address], [address]nd [place] [address] Keith Singh MD [address] [place] [phone] [email or web address] 01/03/2025 11:00 AM EDT Office Visit [facility], Division of Hematologic Oncology, [address], [address]th [place] [address] Keith Singh MD [address] [place] [address] [email or web address] Health Maintenance Due Date Last Done Comments Adult Td,Tdap Booster 1949 HEMOGLOBIN A1C 1949 DEPRESSION SCREENING 1961 SMOKING Hx and SMOKELESS TOBACCO SCREENING 1962 HEPATITIS C SCREENING 1967 COLOGUARD 1994 COLONOSCOPY 1994 COLORECTAL CANCER SCREENING 1994 FIT TEST 1994 FOBT 1994 SIGMOIDOSCOPY 1994 VIRTUAL COLONOSCOPY 1994 PNEUMOCOCCAL VACCINES (50+ years) (2 of 2 - PPSV23) 04/13/2015 02/16/2015 DIABETIC EYE EXAM 07/17/2024 COVID-19 VACCINE ( season) 2024 04/08/2024, 08/15/2023, 02/25/2023, Additional history exists BLOOD PRESSURE 01/17/2025 07/20/2024 CREATININE LEVEL 07/20/2025 07/20/2024, 07/04/2024 POTASSIUM LEVEL 07/20/2025 07/20/2024 RSV VACCINE Completed 05/15/2023 ZOSTER VACCINES Completed 08/15/2023, 05/15/2023 HEPATITIS A VACCINES Aged Out No long er eligible based on patient's age to complete this topic HIB VACCINES Aged Out No longer eligi ble based on patient's age to complete this topic MENINGOCOCCAL VACCINES (ACWY) Aged Out No longer eligible based on patient's age to complete this topic MENINGOCOCCAL VACCINES (B) Aged Out N o longer eligible based on patient's age to complete this topic Medical Devices Not on file Procedures Procedure Name Priority Date/Time Associated Diagnosis Comments COMPREHENSIVE METABOLIC PANEL Routine 07/20/2024 12:06 PM EST MDS (myelodysplastic syndrome) from Last 3 Months or Most Recently Relevant to Health Maintenance Results * (ABNORMAL) Comprehensive metabolic panel (07/20/2024 12:06 PM EST) SODIUM 142 136 - 145 mmol/L [facility] LIC# [id number] POTASSIUM 3.8 3.4 - 5.1 mmol/L [facility] LIC# [id number] CHLORIDE 96(L) 98 - 107 mmol/L [facility] LIC# [id number] CO2 34(H) 22 - 31 mmol/L [facility] LIC# [id number] BUN 49(H) 6 - 23 mg/dL [facility] LIC# [id number] CREATININE 1.58(H) 0.50 - 1.20 mg/dL [facility] LIC# [id number] GLUCOSE 96 70 - 100 mg/dL [facility] LIC# [id number] ALBUMIN 4.1 3.5 - 5.2 g/dL [facility] LIC# [id number] TOTAL PROTEIN 7.0 6.4 - 8.3 g/dL [facility] LIC# [id number] CALCIUM 8.9 8.8 - 10.7 mg/dL [facility] LIC# [id number] ALKALINE PHOSPHATASE 39(L) 40 - 129 U/L [facility] LIC# [id number] TOTAL BILIRUBIN 0.3 0.2 - 1.2 mg/dL [facility] LIC# [id number] AST 12 <41 U/L [facility] LIC# [id number] ALT 7 <42 U/L [facility] LIC# [id number] GLOBULIN 2.9 2.3 - 4.2 g/dL [facility] LIC# [id number] EGFR 45(L) >59 mL/min/1.7 3m2 [facility] LIC# [id number] Comment:Estimated glomerular filtration rate calculated using the CKD-EPI refit equation. ANION GAP 12 7 - 17 mmol/L [facility] LIC# [id number] Blood 07/20/2024 12:0 6 PM EST 07/20/2024 12:12 PM EST us Keith Singh MD LAB BLOOD ORDERABLES Final Re sult [facility] LIC# [id number] [address] [place] [address] from Last 3 Months or Most Recently Relevant to Health Maintenance Insurance BLUE [place]OSS [place] MEDICARE PPO BLUE REPLACEMENT Member Subscriber Plan / Payer (Ef fective 2009-Present) Name:Kiran Law Relation to Subscriber:Self Name:Kiran Law Payer ID:[id number] (NAIC) Type:Medicare Address: [facility] [id number] [place], [place] MEDICARE PPO BLUE REPLACEMENT MEDICARE PPO BLUE REPLACEMENT MEDICARE PPO BLUE REPLACEMENT MEDICARE PPO BLUE REPLACEMENT MEDICARE PPO BLUE REPLACEMENT Care Teams Software Engineer Advisor Relationship Specialty Start Date End Date Grayson Berrios DO [address] [place] [address] PCP - General Internal Medicine 07/20/24 Self-Referred, Patient Referring Physician 06/29/24 Johny [email or web address] MD [email or web address] 07/20/24 Jesus Beasley MD [address] [address] Gastroenterology 07/20/24 Additional Source Comments The information contained in this document represents components of the legal health record. It is not the complete legal health record.[facility]
--- OUTSIDE RECORDS SUMMARY | 2024-12-19 08:59 | XMS_ITS | Clinical Summary ---
Author Organization [facility] Address [address] [facility] [address] [place] [address] Phone Care Team Providers Care Knot Picker Cloth Name Role Phone Grayson Berrios DO Primary Care Provider [phone] Allergies No known active allergies Medications albuterol [...] % RTAMA 01/10/2019 us Rtama Conversion LAB [id number] LICITED RESULTS Final Result RTAMA from Last 3 Months or Most Recently Relevant to Health Maintenance [place] [address] [place] [address] [place] [address] Care Teams Knot Picker Cloth Relationship Specialty Start Date End Date Grayson Berrios DO [address] [place] [address] PCP - General 06/11/20
[2024-12-19 12:57] LABS: MANUAL DIFF FLAG NO
[2024-12-19 13:12] LABS: Hematocrit 32.3 % (42.0-52.0); Hemoglobin 10.5 g/dl (14.0-18.0); Imm Gran Abs Auto 0.02 X10*3/uL (0.00-0.03); Imm Gran Pct Auto 0.4 % (0.0-0.4); Lymphocytes Absolute Auto 0.9 X10*3/uL (1.2-4.9); Mean Corpuscular HGB Conc 32.5 g/dl (31.0-36.0); Mean Corpuscular Hemoglobin 32.7 pg (27.0-33.0); Mean Corpuscular Volume 100.6 fL (80.0-98.0); NRBC Abs Auto 0.000 X10*3/uL (0.0-0.012); NRBC Pct Auto 0.0 /100WBC (0.0-0.2); Platelet Count 214 X10*3/uL (160-400); Red Blood Count 3.21 X10*6/uL (4.60-5.80); White Blood Count 5.6 X10*3/uL (4.8-10.8)
[2024-12-19 13:42] LABS: Anion Gap 14 (12-20); Blood Urea Nitrogen 55 mg/dL (9-16); Calcium 9.4 mg/dL (8.4-10.2); Carbon Dioxide 35 mmol/L (22-29); Chloride 96 mmol/L (96-108); Estimated Glomerular Filt Rate 38; Iron 77 mcg/dL (45-160); Percent Iron Saturation 30 % (15-50); Potassium 4.1 mmol/L (3.3-5.1); Sodium 141 mmol/L (135-145); Total Iron Binding Capacity 261 mcg/dL (228-428); Unsaturated Iron Binding 184 ug/dL
[2024-12-19 13:56] LABS: Parathyroid Hormone Intact 161.7 pg/mL (8.7-77.1)
== END 2024-12-19 08:51 | disposition home or self-care (01) ==
LOC: HO.HKASLDS 08:50
PROVIDERS: Visit Provider Internal Medicine Nephrology
DX: I12.9 Hypertensive chronic kidney disease with stage 1 through stage 4 chronic kidney disease, or unspecified chronic kidney disease (principal); N18.32 Chronic kidney disease, stage 3b; E61.1 Iron deficiency; Z90.5 Acquired absence of kidney
CPT/HCPCS: 36415; 80051; 82306; 82310; 82565; 83540; 83970; 84100; 84520; 85025

== ENCOUNTER 2024-12-27 14:30 | Outpatient (AMB) | payer MEDICARE, SELFPAY ==
--- NOTE | 2024-12-27 14:35 | HO.NEPHOV ---
Vital Signs 12/27/24 14:36 Height 5 ft 8 in Weight 178 lb 6 oz BMI 27.1 BP 112/60 Blood Pressure Location Rt brachial Position Sitting Pulse 93 Pulse Source Pulse Oximeter Pulse Oximetry (%) 97 Oxygen Delivery Method Room Air Intake Visit Reasons: -[facility] Sheriff Detective Required: No Accompanied by: Self / Same As Patient Allergies No Known Allergies Allergy (Verified 12/27/24 14:36) HPI Comments Details: 73-year-old male with pertinent history of congestive heart failure with preserved ejection fraction, chronic hypoxic respiratory failure due to COPD on 2 L supplemental oxygen, tij-[id number] diabetes mellitus, permanent atrial fibrillation on Coumadin, mixed hyperlipidemia, hypertension, chronic kidney disease stage III who is being seen in the office today in follow-up. He has seen Dr. Finnegan and had a Watchman device. 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 He had seen Dr Bennett. He had a BM biopsy suggestive of Myelodysplasia and had blood transfusion. He follows Dr Bennett [facility] Medical History (Updated 12/27/24 @ 14:55 by Donny Dodd MD) Hypokalemia Chronic heart failure with preserved ejection fraction (HFpEF) Chronic a-fib Severe anemia Macrocytic anemia Partial small bowel obstruction Anemia CHF (congestive heart failure) Diabetes mellitus CKD (chronic kidney disease) HTN (hypertension) Biatrial enlargement Pulmonary hypertension HLD (hyperlipidemia) Current use of anticoagulant therapy Surgical History Hx of total hip arthroplasty Hx of colonoscopy Hx of esophagogastroduodenoscopy History of nephrectomy Hx of hernia repair Family History Father Cancer Mother No problems noted. Social History Household Members: Significant Other Housing: House Do you presently have visiting nurse or other home services: No Comment: refused bed alarm Patient Tobacco Use Status: Former Tobacco user Second Hand Smoke Exposure: No Advance Directives Date on File: 06/01/00 service: No Review of Systems Const All systems reviewed & are unremarkable except as noted in HPI and below Physical Exam Vital Signs: Last Vital Signs Pulse 93 12/27/24 14:36 BP 112/60 12/27/24 14:36 Pulse Ox 97 12/27/24 14:36 Oxygen Delivery Method Room Air 12/27/24 14:36 BMI result Body Mass Index 27.1 Const General: comfortable and no acute distress Orientation/consciousness: patient oriented x3 HEENT Head: Yes normocephalic Mouth: Normal oral and palatal mucosa present Eyes EOM: EOMs intact bilaterally Neck Neck: Yes supple Resp Auscultation: clear to auscultation bilaterally Cardio Jugular venous distension: no JVD Rate: regular rate GI Palpation (GI): Soft to palpation Auscultation: normal bowel sounds General: Yes no CVA tenderness Back/Spine/Pelvis Back: no CVA tenderness Skin General skin exam: no rashes or lesions noted Neuro General: patient oriented x3 and moves all extremities Extrem General: Yes no pedal edema Results Reviewed Nephrology Results: Hgb, (14.0-18.0) 10.5 g/dl L Δ 12/19/24 WBC, (4.8-10.8) 5.6 X10*3/uL 12/19/24 Plt Count, (160-400) 214 X10*3/uL Δ 12/19/24 Sodium, (135-145) 141 mmol/L 12/19/24 Potassium, (3.3-5.1) 4.1 mmol/L 12/19/24 Chloride, (96-108) 96 mmol/L 12/19/24 Carbon Dioxide, (22-29) 35 mmol/L H 12/19/24 BUN, (9-16) 55 mg/dL H 12/19/24 Creatinine, (0.5-1.4) 1.75 mg/dL H 12/19/24 Calcium, (8.4-10.2) 9.4 mg/dL Δ 12/19/24 Phosphorus, (2.7-4.5) 3.7 mg/dL 12/19/24 PTH Intact, (8.7-77.1) 161.7 pg/mL H 12/19/24 Assessment & Plan Assessment & Plan (1) HTN (hypertension): Code(s): I10 - Essential (primary) hypertension Category: Medical Qualifiers: Hypertension type: primary hypertension Qualified Code(s): I10 - Essential (primary) hypertension (2) CKD stage 3b, GFR 30-44 ml/min: Code(s): N18.32 - Chronic kidney disease, stage 3b Category: Medical (3) Solitary kidney, acquired: Code(s): Z90.5 - Acquired absence of kidney Category: Medical (4) Vitamin D deficiency: Code(s): E55.9 - Vitamin D deficiency, unspecified Category: Medical Plan Deny has acquired solitary kidney . His urine output is good. His recent serum creatinine is stable.He may a candidate for Procrit ( not now) . He is going to F/U with Sabrina. I started him on Vitamin D 26365 U once a week. Answered all questions. Follow-up lab work ordered and F/U appointment given Orders: Orders Creatinine 3 Months E55.9 - Vitamin D deficiency, unspecified, I10 - Essential (primary) hypertension, N18.32 - Chronic kidney disease, stage 3b Electrolytes 3 Months E55.9 - Vitamin D deficiency, unspecified, I10 - Essential (primary) hypertension, N18.32 - Chronic kidney disease, stage 3b Calcium 3 Months E55.9 - Vitamin D deficiency, unspecified, I10 - Essential (primary) hypertension, N18.32 - Chronic kidney disease, stage 3b Blood Urea Nitrogen 3 Months E55.9 - Vitamin D deficiency, unspecified, I10 - Essential (primary) hypertension, N18.32 - Chronic kidney disease, stage 3b Medications: New cholecalciferol (vitamin D3) 1,250 mcg PO QWEEK 13 caps 1RF 3 months Coding Level of Care Code Est Pt Level 4 (89962) Diagnoses Primary hypertension I10 Hypertension type: primary hypertension CKD stage 3b, GFR 30-44 ml/min N18.32 Solitary kidney, acquired Z90.5 Vitamin D deficiency E55.9
[2024-12-27 14:36] VITALS: BP 112/60; PULSE 93; O2SAT 97; BMI 27.1
--- OUTSIDE RECORDS SUMMARY | 2024-12-27 15:12 | XMS_ITS | Clinical Summary ---
Author Organization [facility] Address [address] [facility] [address] 0 [place] [address] Phone Care Team Providers Care Veterans' Coordinator Name Role Phone Grayson Berrios DO Primary Care Provider [phone] Allergies No known active allergies Medications albuterol [...] % RTAMA 01/10/2019 us Rtama Conversion LAB [id number] LICITED RESULTS Final Result RTAMA from Last 3 Months or Most Recently Relevant to Health Maintenance [place] [address] [address] [place] [address] Care Teams Veterans' Coordinator Relationship Specialty Start Date End Date Grayson Berrios DO [address] [place] [address] PCP - General 06/11/20
--- OUTSIDE RECORDS SUMMARY | 2024-12-27 15:12 | XMS_ITS | Clinical Summary ---
Author Organization [facility] Address [address] [place] [address] Phone Care Team Providers Care Grinder Set Up Operator Jig Name Role Phone Self-Referred, Patient Unavailable Unavailab Johny Hopkins MD Unavailable Grayson Berrios DO Primary Care Provider [phone] Jesus Beasley MD Unavailable [phone] Medications albuterol 90 mcg/actuation inhaler 2 puffs [...] Active ferrous sulfate 325 mg (65 mg [place] iron) tablet Take 1 tablet (325 mg [...] 10:10 AM EDT Blood Draw Laboratory Services, [address] 2nd [place] [address] Keith Singh MD [address] [place] [address] [email or web address] 01/03/2025 11:00 AM EDT Office Visit [facility] for [facility], Division of Hematologic Oncology, [address], [address] [place] [address] Keith Singh MD [address] [place] [address] [email or web address] Health Maintenance Due Date Last Done [...] EST) SODIUM 142 136 - 145 mmol/L [facility] LIC# [id number] POTASSIUM 3.8 3.4 - 5.1 mmol/L [facility] LIC# [id number] CHLORIDE 96(L) 98 - 107 mmol/L [facility] LIC# [id number] CO2 34(H) 22 - 31 mmol/L [facility] LIC# [id number] BUN 49(H) 6 - 23 mg/dL [facility] LIC# [id number] CREATININE 1.58(H) 0.50 - 1.20 mg/dL [facility] LIC# [id number] GLUCOSE 96 70 - 100 mg/dL [facility] LIC# [id number] ALBUMIN 4.1 3.5 - 5.2 g/dL [facility] LIC# [id number] TOTAL PROTEIN 7.0 6.4 - 8.3 g/dL [facility] LIC# [id number] CALCIUM 8.9 8.8 - 10.7 mg/dL [facility] LIC# [id number] ALKALINE PHOSPHATASE 39(L) 40 - 129 U/L [facility] LIC# [id number] TOTAL BILIRUBIN 0.3 0.2 - 1.2 mg/dL [facility] LIC# [id number] AST 12 <41 U/L [facility] LIC# [id number] ALT 7 <42 U/L [facility] LIC# [id number] GLOBULIN 2.9 2.3 - 4.2 g/dL [facility] LIC# [id number] EGFR 45(L) >59 mL/min/1.7 3m2 [facility] LIC# [id number] Comment:Estimated glomerular filtration rate calculated using the CKD-EPI refit equation. ANION GAP 12 7 - 17 mmol/L [facility] LIC# [id number] Blood 07/20/2024 12:0 6 PM EST 07/20/2024 12:12 PM EST us Keith Singh MD LAB BLOOD ORDERABLES Final Re sult [facility] LIC# [id number] [address] [place] [address] from Last 3 Months or Most Recently Relevant to Health Maintenance Insurance BLUE CROSS [place] MEDICARE PPO BLUE REPLACEMENT Member Subscriber Plan / Payer (Ef fective 2009-Present) Name:Kiran Law Relation to Subscriber:Self Name:Kiran Law Payer ID:[id number] (NAIC) Type:Medicare Address: [facility] [address] [place], [place] MEDICARE PPO BLUE REPLACEMENT MEDICARE PPO BLUE REPLACEMENT MEDICARE PPO BLUE REPLACEMENT MEDICARE PPO BLUE REPLACEMENT MEDICARE PPO BLUE REPLACEMENT Care Teams Grinder Set Up Operator Jig Relationship Specialty Start Date End Date Grayson Berrios DO [address] [place] [address] PCP - General Internal Medicine 07/20/24 Self-Referred, Patient Referring Physician 06/29/24 Johny Bennett MD [email or web address] Medical Oncology 07/20/24 Jesus Beasley MD [address] [address] Gastroenterology 07/20/24 Additional Source Comments The information contained in this document represents components of the legal health record. It is not the complete legal health record.[facility]
--- OUTSIDE RECORDS SUMMARY | 2024-12-27 15:12 | XMS_ITS | Encounter Summary ---
Author Organization [facility] Address [address] [place] [address] Care Team Providers Care Fly Frame Tender Name Role Phone RaquelgeneyanetGrayson jones Primary Care Provider [phone] Encounter Details Date Type Department Care Team (Late st Contact Info) Description 10/14/[address] [facility] - Main Lab [address] [facility] [place] [address] Aakash Johnson MD [address] [place] [address] Monoclonal gammopathy Social History Tobacco Use Types [...] Care Team (Late st Contact Info) Description 01/09/2025 8:30 AM EDT Appointment [facility] [address] [phone] 01/16/2025 11:00 AM EDT Appointment [facility] CT Scan [address] [place] [address] 01/23/2025 8:30 AM EDT Appointment [facility] [address] [place] [phone] 02/17/2025 10:15 AM EDT Appointment [facility] CT Scan [address] [place] [address] 02/17/2025 11:00 AM EDT Office Visit Vascular Surgery - [place] [address] [address] Peter Thorne MD [address] [address] 02/23/2025 11:00 AM EDT Office Visit Pulmonolgy - [place] [address] [address] Jessica Neal MD [address] [address] 03/01/2025 10:30 AM EDT Office Visit [facility] Hematology Oncology [address] [place] [address] Johny Bennett MD [address] [place] [address] 03/30/2025 1:30 PM EDT Office Visit Gastroenterology - [address] [address] Kathleen Sethi PA [address] [address] documented as of this encounter Procedures Procedure Name Priority Date/Time Associated Diagnosis Comments HISTORICAL SURGICAL PATHOLOGY CASE Routine 10/14/2024 8:38 AM EDT Monoclonal gammopathy documented in this encounter Results * Historical Pathology Case (10/14/2024 8:38 AM EDT) Final Diagnosis 10/28/2024 1:37 PM EDT [facility] Clinical Information Historical case created for slide request from [facility] ([facility]) 10/28/2024 1:37 PM EDT [facility] Gross Description A. Bone Marrow Aspirate, A-M asp, core bx, clot: At the request of [facility] Dr. Singh [id number] - (17) slides sent: [facility] -Pathology processing (RICKY) [address], [address] [place] [address] [employer] # [id number] 07/18/24 - KK 10/28/2024 1:37 PM EDT [facility] Disclaimer Unless otherwise specified, all tissue is 10% NB formalin fixed and paraffin embedded. 10/28/2024 1:37 PM EDT [facility] Tissue Specimen from bone marrow obtained by aspiration / Unknown 10/14/2024 8:38 AM EDT 10/14/2024 8:39 AM EDT us Aakash Johnson MD LAB PATHOLOGY ORDERABLES Final Result [facility] [address] [place] [address], documented in this encounter Visit Diagnoses Diagnosis Monoclonal gammopathy Monoclonal paraproteinemia documented in this encounter Care Teams Fly Frame Tender Relationship Specialty Start Date End Date Grayson Berrios DO [address] [place] [phone] PCP - General 08/22/15 documented as of this encounter
--- OUTSIDE RECORDS SUMMARY | 2024-12-27 15:12 | XMS_ITS | Clinical Summary ---
Author Organization [facility] Address [address] [place] [address] Care Team Providers Care Vehicle Technician Name Role Phone Grayson Berrios DO Primary Care Provider [phone] Allergies No known active allergies Medications Medication [...] age to complete this topic Care Teams Vehicle Technician Relationship Specialty Start Date End Date Grayson Berrios DO [address] [place] [address] PCP - General Internal Medicine 12/26/22
== END 2024-12-27 14:59 | disposition home or self-care (01) ==
LOC: HO.HKAS 14:31
PROVIDERS: PCP Internal Medicine; Visit Provider Internal Medicine Nephrology
DX: I10 Essential (primary) hypertension (principal); N18.32 Chronic kidney disease, stage 3b; Z90.5 Acquired absence of kidney; E55.9 Vitamin D deficiency, unspecified
CPT/HCPCS: 99214

== ENCOUNTER → 2024-12-27 14:30 | Outpatient (BNVA) | payer MEDICARE, SELFPAY | PROVIDERS: PCP Internal Medicine; Visit Provider Internal Medicine Nephrology | DX: I10 Essential (primary) hypertension (principal); N18.32 Chronic kidney disease, stage 3b; Z90.5 Acquired absence of kidney; E55.9 Vitamin D deficiency, unspecified | CPT/HCPCS: 99212 ==

== ENCOUNTER → 2025-03-14 09:46 | Outpatient (REF) | payer MEDICARE, SELFPAY ==
--- OUTSIDE RECORDS SUMMARY | 2024-03-09 10:30 | XMS_ITS | Encounter Summary ---
Author Organization [facility] Address [address] [place] [address] Care Team Providers Care Tankage Supervisor Name Role Phone Grayson Berrios DO Primary Care Provider [phone] Encounter Details Date Type Department Care Team (Latest Contact Info) Description 03/09/2024 10:30 AM EDT Hospital Encounter TH HISTORIC ENCOUNTERS EASTERN CONVERSION ONLY Chronic kidney disease, stage 3a (CMS/HCC V24, CMS/HCC V28) Social History Tobacco Use Types Packs/Day Years Used Date Smoking Tobacco: Former Cigarettes Q uit: 12/31/2010 Passive Smoke Exposure: Past [...] 9:10 PM EDT Becki Cooper RN * [place] Suicide Severity Rating Scale (Screener/Recent Self-Report) Question [...] Care Team (Late st Contact Info) Description 03/20/2025 8:30 AM EDT Appointment [facility] [address] [place] [address] [address] [place] [address] 04/07/2025 9:30 AM EST Office Visit Vascular Surgery - [place] [address] [place] [address] Peter Thorne MD [address] [place] [address] 07/25/2025 10:40 AM EST Office Visit Gastroenterology - [place] 175 [facility] [address] [phone] Lilia Stephens NP [address] [address] 08/23/2025 10:15 AM EDT Office Visit Pulmonology - [place] 175 [facility] 200 [place] [phone] Jessica Neal MD [address] [address] 08/30/2025 10:30 AM EDT Office Visit [facility] Hematology Oncology [address] [place] [phone] Johny Bennett MD [address] [place] [address] documented as of this encounter Visit Diagnoses Diagnosis Chronic kidney disease, stage 3a (CMS/HCC V24, CMS/HCC V28) documented in this encounter Care Teams Tankage Supervisor Relationship Specialty Start Date End Date Grayson Berrios DO [address] [place] [phone] PCP - General 08/22/15 documented as of this encounter
--- NOTE | 2025-03-14 09:49 | CA_ITS ---
Transthoracic Echocardiogram Patient (Last, First, Middle): Kiran Law, Gender: M Date of : 1950 Age: 74 Procedure Date: 03/14/2025 Procedure Type: Transthoracic Echocardiogram Location: OP Height: 172.72 cm Weight: 85.28 kg BSA: 1.99 m2 Heart Rate: bpm BP: 105 / 65 mmHg Raw Cheese Worker: [email or web address] Referring MD: Mateo Bird MD Symptoms: I50.32 - Chronic diastolic (congestive) heart failure Study Quality: Fair ECG Rhythm: Atrial Fibrillation Conclusions: - The left ventricular systolic function is mildly decreased. The visually estimated ejection fraction is between 45-50%. - Severe biatrial enlargement. - No obvious valvular pathology seen on this study. - There is mild dilatation of the ascending aorta measuring 4.00 cm. Findings Left Ventricle Normal left ventricular cavity size. There is normal left ventricular wall thickness. The left ventricular systolic function is mildly decreased. The visually estimated ejection fraction is between 45-50%. Diastolic function is indeterminate on the basis of available data. Right Ventricle Mildly increased right ventricular cavity size. There is low normal right ventricular systolic function. Atria Severe biatrial enlargement. Aortic Valve The aortic valve was not well visualized. There is no aortic valve stenosis. There is no aortic valve regurgitation. Mitral Valve The mitral valve appears normal. There is no mitral valve regurgitation. There is no mitral valve stenosis. Pulmonic Valve The pulmonic valve is likely normal. Tricuspid Valve There is mild tricuspid valve regurgitation. There is no evidence of pulmonary hypertension. Great Vessels There is mild dilatation of the ascending aorta measuring 4.00 cm. Venous The inferior vena cava is normal in size and collapses greater than 50% with inspiration. Pericardium/Pleural There is no evidence of pericardial effusion. Prior Study Comparison Changes noted compared to prior study dated: 01/06/2024. LVEF slightly lower. Recommendations, Care & Conclusions No obvious valvular pathology seen on this study. Measurements 2D Linear Measurements IVSd: 0.94 0.6-0.9/0.6-1.0 cm LVIDd: 5.47 3.9-5.3/4.2-5.9 cm LVIDd Index: 2.75 2.4-3.2/2.2-3.1 cm/m2 LVIDs: 4.10 2.0-3.6 cm LVPWd: 0.99 0.7-1.1 cm LA Diam: 5.30 2.7-3.8/3.0-4.0 cm LAIDs Index: 2.66 1.5-2.3 cm/m2 LV Mass: 250.71 67-162/88-224 g LV Mass Index: 125.98 43-95/49-115 g/m2 LVOT Diam: 2.50 3.0+(-)1.3 cm 2D Systolic Function EF 4C: 36.30 >55% EF 2C: 32.50 >55% EF BiP: 32.50 >55% Mitral Valve MV Pk E: 0.86 MV Decel Time: 222.00 E'Lateral: 10.50 E'Medial: 8.78 E/E' Med: 9.70 E/E' Lat: 8.20 PHT: 65.00 MVA PHT: 3.38 Decel Winona: 3.94 Aortic Valve AoV Pk Bora: 1.26 AoV Mn Bora: 0.93 AoV VTI: 0.25 AoV Pk Grad: 6.00 Aov Mn Grad: 4.00 MARY Cont.VTI: 2.67 LVOT LVOT Pk Bora: 0.70 LVOT Mn Bora: 0.47 LVOT VTI: 0.13 LVOT Pk Grad: 2.00 LVOT Mn Grad: 1.00 LVOT Diam: 2.50 LVOT Area: 4.91 Diastolic Function MV Pk E: 0.86 E'Medial: 8.78 E/E' Med: 9.70 E' Laterial: 10.50 E/E' Lat: 8.20 Right Ventricle TAPSE (mm): 16.90 TVS' Bora: 11.90 Tricuspid Valve TR Pk Bora: 2.31 TR Pk Grad: 21.00 Great Vessels Aorta Sinus of Valsalva: 3.80 2.0-3.5 cm Ao Asc: 4.00 2.1-3.4 cm Updated in Other Vendor System with Status of Final Ashok Lee MD electronically signed on 03/15/2025 12:21:07 PM with status of Final
--- OUTSIDE RECORDS SUMMARY | 2025-03-14 10:58 | XMS_ITS | Encounter Summary ---
Author Organization [facility] Address [address] [place] [address] Care Team Providers Care Pricing Lead Name Role Phone Grayson Berrios Primary Care Provider [phone] Encounter Details Date Type Department Care Team (Late st Contact Info) Description 04/11/2024 Lab Requisition [facility] - Main Lab [address] [place] [address] Meghana Hayden PA [address] [place] [phone] Frequency of micturition; Anemia, unspecified Social [...] Info) Description 03/20/2025 8:30 AM EDT Appointment [facility] [address] [facility] 2nd [place] [phone] 04/07/2025 9:30 AM EST Office Visit Vascular Surgery - [place] [address] [place] [phone] Peter Thorne MD 230 [place] [address] 07/25/2025 10:40 AM EST Office Visit Gastroenterology - [place] [address] 200 [place] [phone] Lilia Stephens NP [address] [address] 08/23/2025 10:15 AM EDT Office Visit Pulmonology - [place] 175 [facility] 200 [place] [phone] Jessica Neal MD 175 [facility] 200 [place] [address] 08/30/2025 10:30 AM EDT Office Visit [facility] Hematology Oncology 271 [place] [phone] Johny Bennett MD 271 [place] [address] documented as of this encounter Procedures Procedure Name Priority Date/Time Associated Diagnosis Comments NON-GYNECOLOGIC CYTOLOGY 04/08/2024 12:00 AM EST Frequency of micturition Anemia, unspecified documented in this encounter Results * Non-gynecologic cytology (04/08/2024 12:00 AM EST) Final Diagnosis Urine: Negative for high grade urothelial carcinoma. 04/13/2024 4:[address] [facility] Specimen A Adequacy Satisfactory for evaluation 04/13/2024 4:[address] [facility] Gross Description A. Urine, Clean Catch, : Rec'd 20 cc of clear yellow fluid. 1 ThinPrep preparation. 04/13/2024 4:[address] [facility] Disclaimer Unless otherwise specified, all tissue is 10% NB formalin fixed and paraffin embedded. Technical cytopathology services provided by [facility], at [address] [place] [address] (CLIA # [id number]/Sonia Singleton MD, Information Technology Officer.) 04/13/2024 4:[address] [facility] Urine Urine specimen obtained by clean catch procedure / Unknown 04/08/2024 04/11/2024 10:49 AM EST us Meghana [facility] CYTOLOGY ORDERABLES Wendie l Result [facility] [address] [place] [address], documented in this encounter Visit Diagnoses Diagnosis Frequency of micturition Urinary frequency Anemia, unspecified documented in this encounter Care Teams Pricing Lead Relationship Specialty Start Date End Date Grayson Berrios DO [address] [place] [phone] PCP - General 08/22/15 documented as of this encounter
--- OUTSIDE RECORDS SUMMARY | 2025-03-14 10:58 | XMS_ITS | Encounter Summary ---
Author Organization [facility] Address [address] [place] [address] Care Team Providers Care Laboratory Animal Care Veterinarian Name Role Phone Grayson Berrios Primary Care Provider [phone] Encounter Details Date Type Department Care Team (Late st Contact Info) Description 04/04/2024 Lab Requisition [facility] - Main Lab 299 [place] [phone] Johny Bennett MD [address] [place] [address] Chronic kidney disease, unspecified; Monoclonal gammopathy; Nutritional [...] Info) Description 03/20/2025 8:30 AM EDT Appointment [facility] [address] [facility] 2nd [place] [phone] 04/07/2025 9:30 AM EST Office Visit Vascular Surgery - [place] [address] [place] [address] Peter Thorne MD 230 [place] [address] 07/25/2025 10:40 AM EST Office Visit Gastroenterology [facility] [address] [phone] Lilia Stephens NP [address] [address] 08/23/2025 10:15 AM EDT Office Visit Pulmonology [facility] 175 [facility] 200 [place] [phone] Jessica Neal MD [address] [address] 08/30/2025 10:30 AM EDT Office Visit [facility] Hematology Oncology [address] [place] [phone] Johny Bennett MD 271 [place] [address] documented as of this encounter Procedures Procedure [...] ABO Group O 04/04/2024 12:50 PM EST [facility] Rh Type Positive 04/04/2024 12:50 PM EST [facility] Antibody Screen Negative 04/04/2024 12:50 PM EST [facility] Blood Venous blood specimen / Unknown 04/04/2024 8:00 AM EST 04/04/2024 12:01 PM EST Johny Bennett MD LAB BLOOD BANK TEST ORDERABL ES Final Result [facility] 299 [place] [address], * (ABNORMAL) Complete blood count (04/04/2024 8:00 AM EST) Pathologist [facility] WBC 5.1 4.8 - 10.8 K/mcL LAB HEMETOLOGY METHOD 04/04/2024 10:13 AM [facility] RBC 2.50(L) 4.50 - 5.50 M/mcL LAB HEMETOLOGY METHOD 04/04/2024 10:13 AM [facility] Hemoglobin 6.6(L) 13.5 - 17.5 g/dL LAB HEMETOLOGY METHOD 04/04/2024 10:13 AM [facility] Hematocrit 23.2(L) 42.0 - 54.0 % LAB HEMETOLOGY METHOD 04/04/2024 10:13 AM [facility] MCV 91.3 79.0 - 98.0 FL LAB HEMETOLOGY METHOD 04/04/2024 10:13 AM [facility] MCH 26.0(L) 27.0 - 32.0 pcg LAB HEMETOLOGY METHOD 04/04/2024 10:13 AM EST [facility] MCHC 28.4(L) 32.0 - 37.0 g/dL LAB HEMETOLOGY METHOD 04/04/2024 10:13 AM [facility] RDW 17.5(H) 11.0 - 15.0 % LAB HEMETOLOGY METHOD 04/04/2024 10:13 AM [facility] Platelets 273 130 - 400 K/mcL LAB HEMETOLOGY METHOD 04/04/2024 10:13 AM [facility] MPV 10.8 7.0 - 11.0 FL LAB HEMETOLOGY METHOD 04/04/2024 10:13 AM [facility] NRBC 0.0 <1.0 % LAB HEMETOLOGY METHOD 04/04/2024 10:13 AM [facility] NRBC Absolute 0.00 <0.10 K/mcL LAB HEMETOLOGY METHOD 04/04/2024 10:13 AM [facility] Blood Venous blood specimen / Unknown 04/04/2024 8:00 AM EST 04/04/2024 9:58 AM EST Johny Bennett MD LAB BLOOD ORDERABLES Final R esult [facility] [address] [place] [address], documented in this encounter Visit Diagnoses Diagnosis Chronic kidney disease, unspecified Monoclonal gammopathy Monoclonal paraproteinemia Nutritional anemia, unspecified documented in this encounter Care Teams Laboratory Animal Care Veterinarian Relationship Specialty Start Date End Date Grayson Berrios DO [address] [place] [phone] PCP - General 08/22/15 documented as of this encounter
--- OUTSIDE RECORDS SUMMARY | 2025-03-14 10:58 | XMS_ITS | Encounter Summary ---
Author Organization [facility] Address [address] [place] [address] Care Team Providers Care Modeling Agent Name Role Phone Grayson Berrios DO Primary Care Provider [phone] Encounter Details Date Type Department Care Team (Late st Contact Info) Description 10/14/2024 Lab Requisition [facility] - Main Lab 299 [facility] [place] [address] Aakash Johnson MD [address] [place] [address] Monoclonal gammopathy Social History Tobacco Use Types [...] Info) Description 03/20/2025 8:30 AM EDT Appointment [facility]fusion [facility] [address] [facility] 2nd [place] [phone] 04/07/2025 9:30 AM EST Office Visit Vascular Surgery - [place] [address] [place] [address] Peter Thorne MD 230 [place] [address] 07/25/2025 10:40 AM EST Office Visit Gastroenterology [facility] 175 [facility] 175 [facility] 200 [place] [phone] Lilia Stephens NP 175 [facility] 200 [place] [address] 08/23/2025 10:15 AM EDT Office Visit Pulmonology [facility] 175 [facility] 200 [place] [phone] Jessica Neal MD 175 [facility] 200 [place] [address] 08/30/2025 10:30 AM EDT Office Visit [facility] Hematology Oncology 271 [place] [phone] Johny Bennett MD 271 [place] [address] documented as of this encounter Procedures Procedure Name Priority Date/Time Associated Diagnosis Comments HISTORICAL SURGICAL PATHOLOGY CASE Routine 10/14/2024 8:38 AM EDT Monoclonal gammopathy documented in this encounter Results * Historical Pathology Case (10/14/2024 8:38 AM EDT) Final Diagnosis 10/28/2024 1:37 PM EDT [facility] Clinical Information Historical case created for slide request from [facility] Cancer ([facility]) 10/28/2024 1:37 PM EDT [facility] Gross Description A. Bone Marrow Aspirate, A-M asp, core bx, clot: At the request of [facility] Dr. Singh [id number] - (17) slides sent: [facility] -Pathology processing (RICKY) [address], [address] [place] [address] FED[employer] # [id number] 07/18/24 - KK 10/28/2024 1:37 PM EDT [facility] Disclaimer Unless otherwise specified, all tissue is 10% NB formalin fixed and paraffin embedded. 10/28/2024 1:37 PM EDT [facility] Tissue Specimen from bone marrow obtained by aspiration / Unknown 10/14/2024 8:38 AM EDT 10/14/2024 8:39 AM EDT us Aakash Johnson MD LAB PATHOLOGY ORDERABLES Final Result [facility] 299 [place] [address], documented in this encounter Visit Diagnoses Diagnosis Monoclonal gammopathy Monoclonal paraproteinemia documented in this encounter Care Teams Modeling Agent Relationship Specialty Start Date End Date Grayson Berrios DO [address] [place] [phone] PCP - General 08/22/15 documented as of this encounter
--- OUTSIDE RECORDS SUMMARY | 2025-03-14 10:58 | XMS_ITS | Encounter Summary ---
Author Organization [facility] Address [address] [place] [address] Care Team Providers Care Philosophy Specialist Name Role Phone Grayson Berrios DO Primary Care Provider [phone] Reason for Visit * Reason Comments Anemia Encounter Details Date Type Department Care Team ([facility] Contact Info) Description 10/05/2024 Billing Patient Not Present Gastroenterology - [address] [phone] Jesus Beasley MD [address] [address] Social History Tobacco Use Types Packs/Day Years [...] Info) Description 03/20/2025 8:[address] [facility] [address] [facility] 2nd [place] [phone] 04/07/2025 9:30 AM EST Office Visit Vascular Surgery - [place] [address] [place] [phone] Peter Thorne MD 230 [place] [address] 07/25/2025 10:40 AM EST Office Visit Gastroenterology [facility] 175 [facility] 175 [facility] 200 [place] [phone] Lilia Stephens NP [address] [address] 08/23/2025 10:15 AM EDT Office Visit Pulmonology - [place] 175 [facility] 200 [place] [phone] Jessica Neal MD 175 [facility] 200 [place] [address] 08/30/2025 10:30 AM EDT Office Visit [facility] Hematology Oncology 271 [place] [phone] Johny Bennett MD 271 [place] [address] documented as of this encounter Visit Diagnoses Not on filedocumented in this encounter Care Teams Philosophy Specialist Relationship Specialty Start Date End Date Grayson Berrios DO [address] [place] [phone] PCP - General 08/22/15 documented as of this encounter
--- OUTSIDE RECORDS SUMMARY | 2025-03-14 10:58 | XMS_ITS | Clinical Summary ---
Author Organization [facility] Address 100 [facility] 20 0 [place] [address] Phone Care Team Providers Care Naturalization Examiner Name Role Phone Grayson Berrios DO Primary Care Provider [phone] Allergies No known active allergies Medications albuterol [...] % [facility] 01/10/2019 us [facility] [id number] LICITED RESULTS Final Result RT[facility] from Last 3 Months or Most Recently Relevant to Health Maintenance [place] [address] [place] [address] [place] [address] Care Teams Naturalization Examiner Relationship Specialty Start Date End Date Grayson Berrios DO [address] [place] [address] PCP - General 06/11/20
--- OUTSIDE RECORDS SUMMARY | 2025-03-14 10:59 | XMS_ITS | Clinical Summary ---
Author Organization [facility] Address [address] [place] [address] Phone Care Team Providers Care Finish Patcher Name Role Phone Self-Referred, Patient Unavailable Unavailab Johny Hopkins MD Unavailable [phone] Grayson Berrios DO Primary Care Provider [phone] Jesus Beasley MD Unavailable [phone] Jessica Batista MD Unavailable [phone] Peter Thorne MD Unavailable [phone] Mateo Bird MD Unavailable [phone] Donny Dodd MD Unavailable Allergies No known active allergies Medications albuterol 90 mcg/actuation inhaler 2 puffs every 4 (four) hours as needed. 05/04/2024 Active ascorbic acid, vitamin C, (VITAMIN C) 500 MG tablet Take 500 mg by mouth daily. Active ezetimibe (ZETIA) 10 mg tablet Take 10 mg by mouth daily. for 90 days Active ferrous sulfate 325 mg (65 mg [place] iron) tablet Take 1 tablet (325 mg total) by mouth every morning with breakfast. Active BREO ELLIPTA 200-25 mcg/dose inhaler Inhale 1 puff into the lungs daily. Active omeprazole (PRILOSEC) 40 MG capsule Take 40 mg by mouth. 05/04/2024 Active pravastatin (PRAVACHOL) 80 MG tablet Take 80 mg by mouth daily. Active torsemide (DEMADEX) 20 MG tablet Take 2 tablets by mouth 2 (two) times a day. 07/07/2024 Active cyanocobalamin, vitamin B-12, 1000 MCG tablet [...] Encounters Date Type Department Care Team Description 01/03/2025 11:00 AM EDT [facility], Division of Hematologic Oncology, [facility] [address] [place] [address], [address] [place] [address] Keith Singh MD Myelodysplastic syndrome (Primary Dx) from Last 3 Months Social History Tobacco Use Types Packs/Day Years [...] Sign Reading Time Taken Comments Blood Pressure 99/51 01/03/2025 10:45 AM EDT Pulse 64 01/03/2025 10:45 AM EDT Temperature 36.2 C (97.2 F) 01/03/2025 10:45 AM EDT Respiratory Rate 18 07/20/2024 1:16 PM EST Oxygen Saturation 100% 01/03/2025 10:45 AM EDT Inhaled Oxygen Concentration - - Weight 78.7 kg (173 lb 8 oz) 07/20/2024 1:16 PM EST Height 167.5 cm (5' 5.95 ) 07/20/2024 1:16 PM ES T Body Mass Index 28.05 07/20/2024 1:16 PM EST Plan of Treatment Health Maintenance Due Date Last Done Comments Adult Td,Tdap Booster 1949 DEPRESSION SCREENING 1961 SMOKING Hx and SMOKELESS TOBACCO SCREENING 1962 HEPATITIS C SCREENING 1967 COLOGUARD 1994 COLONOSCOPY 1994 COLORECTAL CANCER SCREENING 1994 FIT TEST 1994 FOBT 1994 SIGMOIDOSCOPY 1994 VIRTUAL COLONOSCOPY 1994 PNEUMOCOCCAL VACCINES (50+ years) (2 of 2 - PPSV23) 04/13/2015 02/16/2015 DIABETIC EYE EXAM 07/17/2024 COVID-19 VACCINE ( season) 2025 04/08/2024, 08/15/2023, 02/25/2023, Additional history exists HEMOGLOBIN A1C 04/28/2025 10/26/2024 BLOOD PRESSURE 07/06/2025 01/03/2025 RSV VACCINE Completed 05/15/2023 ZOSTER VACCINES Completed 08/15/2023, 05/15/2023 INFLUENZA VACCINE Completed 12/31/2024, , 02/25/2023, Additional history exists HEPATITIS A VACCINES Aged Out No long [...] Procedure Name Priority Date/Time Associated Diagnosis Comments TYPE AND SCREEN (ABO,RH,ANTIBODY SCREEN) Routine 01/03/2025 10:34 AM EDT MDS (myelodysplastic syndrome) FERRITIN Routine 01/03/2025 10:34 AM EDT MDS (myelodysplastic syndrome) IRON AND IRON BINDING CAPACITY Routine 01/03/2025 10:34 AM EDT MDS (myelodysplastic syndrome) LDH Routine 01/03/2025 10:34 AM EDT MDS (myelodysplastic syndrome) COMPREHENSIVE METABOLIC PANEL Routine 01/03/2025 10:34 AM EDT MDS (myelodysplastic syndrome) HC DFCI MANUAL DIFFERENTIAL Routine 01/03/2025 10:34 AM EDT MDS (myelodysplastic syndrome) from Last 3 Months Results * (ABNORMAL) CBC with manual differential (01/03/2025 10:34 AM EDT) WBC 5.13 4.00 - 10.00 K/uL [facility] LIC# [id number] RBC 3.27(L) 4.50 - 6.40 M/uL [facility] LIC# [id number] HGB 10.7(L) 13.5 - 18.0 g/dL [facility] LIC# [id number] HCT 33.3(L) 40.0 - 54.0 % [facility] LIC# [id number] PLT 164 150 - 450 K/uL [facility] LIC# [id number] MCV 101.8(H) 80.0 - 100.0 fL [facility] LIC# [id number] MCH 32.7(H) 27.0 - 32.0 pg [facility] LIC# [id number] MCHC 32.1 32.0 - 36.0 g/dL [facility] LIC# [id number] RDW 17.2(H) 11.5 - 14.5 % [facility] LIC# [id number] MPV 10.4 8.4 - 12.0 fL [facility] LIC# [id number] NRBC 0.00 0 /100 WBCs [facility] LIC# [id number] ABSOLUTE NRBC 0.00 0 K/uL [facility] LIC# [id number] BLASTS 0.0 0 % [facility] LIC# [id number] NEUTS (MANUAL) 76.3(H) 48.0 - 76.0 % [facility] LIC# [id number] LYMPHS 10.7(L) 18.0 - 41.0 % [facility] LIC# [id number] MONOS 3.1(L) 4.0 - 11.0 % [facility] LIC# [id number] EOSINOPHIL 7.6(H) 0.0 - 5.0 % [facility] LIC# [id number] BASOPHIL 2.3(H) 0.0 - 1.5 % [facility] LIC# [id number] ABSOLUTE NEUTS 3.91 1.92 - 7.60 K/uL [facility] LIC# [id number] ABSOLUTE LYMPHS 0.55(L) 0.72 - 4.10 K/uL [facility] LIC# [id number] ABSOLUTE MONOS 0.16 0.16 - 1.10 K/uL [facility] LIC# [id number] ABSOLUTE EOS 0.39 0.00 - 0.50 K/uL [facility] LIC# [id number] ABSOLUTE BASO 0.12 0.00 - 0.15 K/uL [facility] LIC# [id number] ABSOLUTE BLASTS 0.00 0 K/uL [facility] LIC# [id number] VACUOLATED NEUTS [facility] LIC# [id number] ANISO Few [facility] LIC# [id number] POIKILOCYTOSIS Few [facility] LIC# [id number] MACROCYTES Few [facility] LIC# [id number] OVALOCYTES Few [facility] LIC# [id number] PLT GIANT FORMS PRESENT [facility] LIC# [id number] DIFF METHOD MANUAL [facility] LIC# [id number] Blood 01/03/2025 10:3 4 AM EDT 01/03/2025 10:40 AM EDT us Addison Maldonado MD, PhD LAB BLOOD ORDERABLES Fin al Result Performing Organization Address [facility] Co de Phone Number [facility] LIC# [id number] [address] [place] [address] * LDH (01/03/2025 10:34 AM EDT) Pathologist [facility] LDH 178 135 - 225 U/L [facility] LIC# [id number] Comment:INTERPRET WITH CAUTI ON, SPECIMEN HEMOLYZED Blood 01/03/2025 10:3 4 AM EDT 01/03/2025 10:40 AM EDT us Addison Maldonado MD, PhD LAB BLOOD ORDERABLES Fin al Result Performing Organization Address [facility] Co de Phone Number [facility] LIC# [id number] [address] [place] [address] * (ABNORMAL) Comprehensive metabolic panel (01/03/2025 10:34 AM EDT) SODIUM 139 136 - 145 mmol/L [facility] LIC# [id number] POTASSIUM 4.5 3.4 - 5.1 mmol/L [facility] LIC# [id number] CHLORIDE 96(L) 98 - 107 mmol/L [facility] LIC# [id number] CO2 34(H) 22 - 31 mmol/L [facility] LIC# [id number] BUN 56(H) 6 - 23 mg/dL [facility] LIC# [id number] CREATININE 1.63(H) 0.50 - 1.20 mg/dL [facility] LIC# [id number] GLUCOSE 269(H) 70 - 100 mg/dL [facility] LIC# [id number] ALBUMIN 4.4 3.5 - 5.2 g/dL [facility] LIC# [id number] TOTAL PROTEIN 6.8 6.4 - 8.3 g/dL [facility] LIC# [id number] CALCIUM 9.4 8.8 - 10.7 mg/dL [facility] LIC# [id number] ALKALINE PHOSPHATASE 48 40 - 129 U/L [facility] LIC# [id number] TOTAL BILIRUBIN 0.4 0.2 - 1.2 mg/dL [facility] LIC# [id number] AST 20 <41 U/L [facility] LIC# [id number] ALT 20 <42 U/L [facility] LIC# [id number] GLOBULIN 2.4 2.3 - 4.2 g/dL [facility] LIC# [id number] EGFR 44(L) >59 mL/min/1.7 3m2 [facility] LIC# [id number] Comment:Estimated glomerular filtration rate calculated using the CKD-EPI refit equation. ANION GAP 9 7 - 17 mmol/L [facility] LIC# [id number] Blood 01/03/2025 10:3 4 AM EDT 01/03/2025 10:40 AM EDT us Addison Maldonado MD, PhD LAB BLOOD ORDERABLES Fin al Result [facility] LIC# [id number] [address] [place] [address] * Iron and iron binding capacity (01/03/2025 10:34 AM EDT) IRON 103 59 - 158 ug/dL [facility] LIC# [id number] IRON BINDING CAPACITY 322 220 - 460 ug/dL [facility] LIC# [id number] TRANSFERRIN SATURAT. 32 14 - 50 % [facility] LIC# [id number] Blood 01/03/2025 10:3 4 AM EDT 01/03/2025 10:40 AM EDT us Addison Maldonado MD, PhD LAB BLOOD ORDERABLES Fin al Result Performing Organization Address City/[facility]/ZIP Co de Phone Number [facility] LIC# [id number] [address] [place] [address] * Type and Screen (ABO,Rh,Antibody Screen) (01/03/2025 10:34 AM EDT) Expiration Date of Sample 01/06/2025 11:59 PM 01/03/2025 11:52 AM EDT [facility] Resulting Agency [facility] ABO Type O 01/03/2025 11:52 AM EDT [facility] Rh Type Positive 01/03/2025 11:52 AM EDT [facility] Antibody Screen Negative 01/03/2025 11:52 AM EDT [facility] Blood 01/03/2025 10:3 4 AM EDT 01/03/2025 10:40 AM EDT us Addison Maldonado MD, PhD BLOOD BANK TEST ORDERABL ES Final Result Performing Organization Address [facility] Co de Phone Number [facility] [address] [place] [address] * Ferritin (01/03/2025 10:34 AM EDT) FERRITIN 149 30 - 400 ug/L [facility] LIC# [id number] Blood 01/03/2025 10:3 4 AM EDT 01/03/2025 10:40 AM EDT us Addison Maldonado MD, PhD LAB BLOOD ORDERABLES Fin al Result [facility] LIC# [id number] [address] [place] [address] from Last 3 Months Insurance MEDICARE PPO BLUE REPLACEMENT MEDICARE PPO BLUE REPLACEMENT MEDICARE PPO BLUE REPLACEMENT MEDICARE PPO BLUE REPLACEMENT MEDICARE PPO BLUE REPLACEMENT Care Teams Finish Patcher Relationship Specialty Start Date End Date Grayson Berrios DO [address] [place] [address] [address] [place] [address] PCP - General Internal Medicine 07/20/24 Self-Referred, Patient Referring Physician 06/29/24 Johny Bennett MD [email or web address] 07/20/24 Jesus Beasley MD [address] [facility] [address] [place] [address] Gastroenterology 07/20/24 Jessica Batista MD [address] [place] [address] Pulmonary Disease 01/03/25 Peter Thorne MD 300 [facility] [address] [place] [address] Vascular Surgery 01/03/25 Mateo Bird MD [address] [place] [address] [address] [place] [address] Cardiology 01/03/25 [place] [address] [place] [address] [address] [place] [address] Nephrology 01/03/25 Additional Source Comments The information contained in this document represents components of the legal health record. It is not the complete legal health record.[facility]
--- OUTSIDE RECORDS SUMMARY | 2025-03-14 10:59 | XMS_ITS | Clinical Summary ---
Author Organization [facility] Address [address] [place] [address] Care Team Providers Care Merchandise Handler Name Role Phone Grayson Berrios DO Primary Care Provider [phone] Allergies No known active allergies Medications Medication [...] Tdap / Td (1 - Tdap) 1968 Colon Cancer Screening (Colonoscopy) 1994 Shingrix-Zoster Vaccine (1 of 2) 1999 Fall Risk Assessment 2014 Pneumococcal Vaccine (3 of 3 - PPSV23 or PCV20) 02/17/2020 02/16/2015, 03/13/2013 RSV Adult > 60+ Yrs or (1 - 1-dose 75+ series) 2024 COVID-19 Vaccine (5 - 2024- season) 2025 01/24/2022, 03/12/2021, 08/24/2020, Additional history exists Influenza Vaccine (#1) 2025 2, 04/05/2021, 02/01/2020, Additional history exists Hepatitis B Vaccines Aged Out No long er eligible based on patient's age to complete this topic RSV Ped < 20 months Aged Out No longe r eligible based on patient's age to complete this topic Care Teams Merchandise Handler Relationship Specialty Start Date End Date Grayson Berrios DO [address] [place] [address] PCP - General Internal Medicine 12/26/22
--- OUTSIDE RECORDS SUMMARY | 2025-03-14 10:59 | XMS_ITS | Clinical Summary ---
Author Organization [facility] Address [address] [place] [address] Phone Care Team Providers Care Hot Frame Tender Name Role Phone Grayson Berrios DO Primary Care Provider [phone] Allergies No known active allergies Medications ascorbic acid (VITAMIN C) 500 mg tablet [...] (one) time each day. 03/28/20 24 Active potassium chloride 20 mEq tablet extended release Take 20 mEq by mouth 3 (three) times a day. 07/07/19 25 Active torsemide (DEMADEX) 20 mg tablet Take 1 tablet (20 mg total) by mouth 1 (one) time each day. 08/31/19 25 Active Eliquis 5 mg tablet Take 1 tablet (5 mg total) by mouth. 12/31/19 24 Active glipiZIDE (GLUCOTROL) 10 mg tablet Take 1 tablet (10 mg total) by mouth 1 (one) time each day. Active lisinopriL (PRINIVIL,ZESTR IL) 2.5 mg tablet Take 1 tablet (2.5 mg total) by mouth 1 (one) time each day. 03/29/20 21 Active metFORMIN (GLUCOPHAGE) 500 mg tablet Take 1 tablet (500 mg total) by mouth 2 times daily. Active fluticasone furoate-vilante roL (Breo Ellipta) 200-25 mcg/dose inhalerIndicati ons:Chronic obstructive pulmonary disease, unspecified COPD type (CMS/HCC V24, CMS/HCC V28) Inhale 1 puff by mouth 1 (one) time each day. 3 each 3 03/01/20 25 Active Incruse Ellipta 62.5 mcg/actuation inhalationIndic ations:Chronic obstructive pulmonary disease, unspecified COPD type (CMS/HCC V24, CMS/HCC V28) Inhale 1 puff by mouth 1 (one) time each day. 3 each 3 03/01/20 25 Active albuterol HFA (PROAIR HFA ; PROVENTIL HFA ; VENTOLIN HFA) 90 mcg/actuation inhaler Inhale 2 puffs by mouth every 6 (six) hours if needed for wheezing or shortness of breath. 3 each 3 03/01/20 25 Active albuterol HFA (PROAIR HFA ; PROVENTIL HFA ; VENTOLIN HFA) 90 mcg/actuation inhaler Inhale 2 puffs by mouth every 6 (six) hours if needed for wheezing or shortness of breath. Discontinued(Re order) fluticasone furoate-vilante roL (Breo Ellipta) 200-25 mcg/dose inhalerIndicati ons:Chronic obstructive pulmonary disease, unspecified COPD type ([facility] V24, [facility] V28) Inhale 1 puff by mouth 1 (one) time each day. 3 each 3 07/15/19 25 025 Discontinued(Re order) Incruse Ellipta 62.5 mcg/actuation inhalationIndic ations:Chronic obstructive pulmonary disease, unspecified COPD type ([facility] V24, [facility] V28) Inhale 1 puff by mouth 1 (one) time each day. 3 each 3 07/15/19 25 025 Discontinued(Re order) budesonide-form oteroL (SYMBICORT) 160-4.5 mcg/actuation inhaler Inhale by mouth. 025 Discontinued Active Problems Problem Noted Date Diagnosed Date Prominent popliteal pulse 11/14/2024 Liver cirrhosis ([facility] V24, [facility] V28) 09/28 Assessment & Plan (09/28/2024 1:00 PM EDT): LFTs are low to normal based on most recent lab work. Recent CTA completed shows no hepatoma. Recall 6 months for routine surveillance with lab work and ultrasound. Chronic blood loss anemia 09/20/2024 Drug therapy 09/05/2024 Gastrointestinal hemorrhage, unspecified gastrointestinal hemorrhage type 08/24/2024 CHF (congestive heart failure) ([facility] V24, [facility] V28) 08/24/2024 CAD (coronary artery disease) 08/24/2024 Liver disease 08/24/2024 Chronic obstructive pulmonar y disease ([facility] V24, [facility] V28) 08/24/2024 Chronic renal impairment, stage 3 (moderate) Dysrhythmias 08/24/2024 BRBPR (bright red blood per rectum) 07/29/2024 BPH (benign prostatic hyperplasia) 07/17/2024 Chronic respiratory failure with hypoxia ([facility] V24, [facility] V28) 07/17/2024 Clear cell carcinoma of kidney ([facility] V24, [facility] V28) 07/17/2024 Dyslipidemia 07/17/2024 (HFpEF) heart failure with p reserved ejection fraction ([facility] V24, [facility] V28) 07/17/2024 COPD with emphysema ([facility] V24, [facility] V28) 0 07/17/2024 CRF (chronic renal failure) 06/16/2024 Iron deficiency 05/27/2024 Anemia, unspecified type 05/24/2024 Myelodysplastic syndrome ([facility] V24, [facility] V 28) 04/06/2024 Diabetes type 2, controlled ([facility] V24, [facility] V28) 01/25/2024 COPD (chronic obstructive pu lmonary disease) ([facility] V24, [facility] V28) 01/25/2024 Benign hypertensive renal disease 11/26/2020 Stage 3a chronic kidney disease ([facility] V24, [facility] V28) 11/26/2020 Depressive disorder 01/01/2007 Congestive heart failure ([facility] V24, [facility] V 28) 08/10/2006 Overview (09/20/2024): EF 25-30% echo 07/08, cath negative IMO update Atrial fibrillation ([facility] V24, [facility] V28) 0 07/18/2005 Malaise and fatigue 07/18/2005 Obesity, unspecified 07/18/2005 Alcohol abuse 05/05/2005 Essential hypertension, benign 05/05/2005 Encounters Date Type Department Care Team Description 03/06/2025 8:06 AM EDT - 03/06/2025 11:59 PM EDT Hospital Encounter [facility] [address] [place] [phone] Johny Bennett MD Chronic renal failure, stage 3 (moderate), unspecified whether stage 3a or 3b CKD ([facility] V24, [facility] V28) (Primary Dx); Anemia, unspecified type; Drug therapy Discharge Disposition: Home or Self Care 03/01/2025 10:30 AM EDT Office Visit [facility] Hematology Oncology [address] [place] [phone] Johny Bennett MD Anemia, unspecified type (Primary Dx); Myelodysplastic syndrome ([facility] V24, [facility] V28); Stage 3a chronic kidney disease ([facility] V24, [facility] V28) 03/01/2025 Telephone [facility] Hematology Oncology [address] [place] [phone] Cecil [place], [place] 02/23/2025 11:00 AM EDT Office Visit [place] [address] [place] [phone] Jessica Neal MD Abnormal chest CT (Primary Dx); Chronic obstructive pulmonary disease, unspecified COPD type ([facility] V24, [facility] V28); Bronchiectasis without acute exacerbation ([facility] V24, [facility] V28); Lung nodules; Ex-smoker; CHRISTINE (obstructive sleep apnea) 02/17/2025 11:00 AM EDT Office Visit Vascular [facility] [place] [address] [place] [phone] Peter Thorne MD Aneurysm artery, iliac ([facility] V24) (Primary Dx); Prominent popliteal pulse 02/17/2025 9:28 AM EDT - 02/17/2025 11:59 PM EDT Hospital Encounter [facility] CT Scan [address] [place] [phone] Lung nodules Discharge Disposition: Home or Self Care 02/06/2025 8:06 AM EDT - 02/06/2025 11:59 PM EDT Hospital Encounter [facility] Infusion Center [address] [place] [phone] Johny Bennett MD Chronic renal failure, stage 3 (moderate), unspecified whether stage 3a or 3b CKD ([facility] V24, [facility] V28) (Primary Dx); Anemia, unspecified type; Drug therapy Discharge Disposition: Home or Self Care 01/23/2025 8:00 AM EDT - 01/23/2025 11:59 PM EDT Hospital Encounter [facility]fusion [facility] [address] [place] [phone] Johny Bennett MD Chronic renal failure, stage 3 (moderate), unspecified whether stage 3a or 3b CKD ([facility] V24, [facility] V28) (Primary Dx); Anemia, unspecified type; Drug therapy Discharge Disposition: Home or Self Care 01/16/2025 10:57 AM EDT - 01/16/2025 11:59 PM EDT Hospital Encounter [facility] CT Scan [address] [place] [phone] Aneurysm artery, iliac ([facility] V24) Discharge Disposition: Home or Self Care 01/09/2025 8:30 AM EDT - 01/09/2025 11:59 PM EDT Hospital Encounter [facility]fusion [facility] [address] [phone] Johny Bennett MD Myelodysplastic syndrome ([facility] V24, [facility] V28) (Primary Dx) Discharge Disposition: Home or Self Care 12/20/2024 Telephone Pul[place]ology - [place] [address] [place] [phone] Jessica Neal MD 12/12/2024 8:07 AM EDT - 12/12/2024 11:59 PM EDT Hospital Encounter [facility] [address] [place] [phone] Johny Bennett MD Anemia, unspecified type (Primary Dx) Discharge Disposition: Home or Self Care from Last 3 Months Immunizations Immunization Administration Dates Next Due [employer] (ages 12 & older) ANALILIA S-CoV-2 COVID-19, mRNA, LNP-S, javier-sucrose, preservative free 01/24/2022 [employer] SARS-CoV-2 COVID-19, mRNA, LNP-S, preservative free 03/12/2021,08/24/2020,08/03/2020 Surgical History Surgery Date Site/Laterality Comments NEPHRECTOMY Right PROCEDURE:NEPHRECTOMY WATCHMAN IMPLANT TOTAL HIP ARTHROPLASTY Right TRANSURETHRAL RESECTION OF PROSTATE BONE MARROW BIOPSY Medical History Medical History Date Comments History of kidney cancer DX:Hist ory of kidney cancer CHF (congestive heart failur e) ([facility] V24, [facility] V28) DX:CHF (congestive heart andreea lure) ([facility]) Diabetes mellitus ([facility] V 24, [facility] V28) DX:Diabetes mellitus ([facility]) COPD (chronic obstructive pu lmonary disease) ([facility] V24, [facility] V28) DX:COPD (chronic o bstructive pulmonary disease) ([facility]) Hypertension DX:Hypertension BPH (benign prostatic hyperplasia) DX:BPH (benign prostatic hyperplasia) Essential hypertension, benign 05/05/2005 D X:Essential hypertension, benign Alcohol abuse, unspecified 05/05/2005 DX:Al cohol abuse, unspecified Arteritis, unspecified ([facility] V24) DX:Arteritis, unspecified ([facility]) Congestive heart failure, unspecified 08/10/2006 DX:Congestive heart failure, unspecified; COMMENT: EF 25-30% echo 07/08 Pulmonary hypertension ([facility] V24, [facility] V28) DX:Pulmonary hypertension (H CC) CAD (coronary artery disease) Chronic hypoxic respiratory failure ([facility] V24, [facility] V28) on 2L O2 Myelodysplastic syndrome ([facility] V24, [facility] V28) Atrial fibrillation ([facility] V24, [facility] V28) Hyperlipidemia Renal cancer ([facility] V24, [facility] V28) CKD (chronic kidney disease) GI bleed AVM (arteriovenous malformation) Liver cirrhosis ([facility] V24 , [facility] V28) Family History Medical History Relation Name [...] Sign Reading Time Taken Comments Blood Pressure 124/48 03/06/2025 8:20 AM EDT Pulse 95 03/06/2025 8:20 AM EDT Temperature 36.2 C (97.1 F) 03/06/2025 8:20 AM EDT Respiratory Rate 18 03/06/2025 8:20 AM EDT Oxygen Saturation 98% 03/06/2025 8:20 AM EDT Inhaled Oxygen Concentration - - Weight 84.8 kg (187 lb) 03/01/2025 10:28 AM EDT Height 172.7 cm (5' 8 ) 02/17/2025 10:52 AM EDT Body Mass Index 28.43 02/17/2025 10:52 AM EDT Plan of Treatment Upcoming Encounters Date Type Department Care Team (Late st Contact Info) Description 03/20/2025 8:30 AM EDT Appointment [facility] Infusion [facility] [address] [place] [phone] 04/07/2025 9:30 AM EST Office Visit Vascular Surgery [place] [address] [place] [phone] Peter Thorne MD [address] [place] [phone] 07/25/2025 10:40 AM EST Office Visit Gastroenterology - [place] [address] [phone] Lilia Stephens NP [address] [address] 08/23/2025 10:15 AM EDT Office Visit Pulmonology - [place] [address] [facility] [address] [place] [phone] Jessica Neal MD 175 [facility] [address] [place] [address] 08/30/2025 10:30 AM EDT Office Visit [facility] Hematology Oncology [address] [place] [phone] Johny Bennett MD [address] [place] [address] Health Maintenance Due Date Last Done Comments Diabetes: Annual Foot Exam 1959 Diabetes: Annual Retina Eye Exam 1959 DTaP,Tdap,and Td Vaccines (1 - Tdap) 1968 Hepatitis A Vaccines (1 of 2 - Risk 2-dose series) 1968 Pneumococcal Vaccine: 50+ Years (3 of 3 - PCV20 or PCV21) 02/17/2020 02/16/2015, 03/13/2013 Abdominal Aortic Aneurysm (AAA) Screen 05/15/2022 Hepatitis C Screening 05/15/2022 Medicare Annual Wellness Visit 05/15/2022 Social Influencers of Health Screening 05/15/2022 Diabetes: Annual Urine Albumin-Creatinine Ratio (uACR) 03/10/2024 Depression Screening 06/01/2024 Colorectal Cancer Screening: Colonoscopy 11/09/2024 11/09/2014 COVID-19 Vaccine (9 - Pfizer risk season) 2025 04/08/2024, 08/15/2023, 02/25/2023, Additional history exists Diabetes: Blood Sugar Control Test (HGBA1C) 04/28/2025 10/26/2024 Diabetes: Annual GFR (Glomerular Filtration Rate) 01/03/2026 01/03/2025, 12/12/2024, 11/28/2024, Additional history exists Hypertension/CHF/CAD Annual BMP Blood Test 01/03/2026 01/03/2025, 12/12/2024, 11/28/2024, Additional history exists Falls Risk Assessment 01/23/2026 01/23/2025 Cholesterol Screening (Lipid Panel) 10/26/2029 10/26/2024 RSV Immunization Adult Patients Completed 05/15/2023 Zoster Vaccines Completed 08/15/2023, 05/15/2023 Influenza Vaccine Completed 12/31/2024, , 02/25/2023, Additional history exists HIB Vaccines Aged Out [...] Diagnosis Comments CBC WITH AUTO DIFFERENTIAL STAT 03/06/2025 8:02 AM EDT Chronic renal failure, stage 3 (moderate), unspecified whether stage 3a or 3b CKD (CMS/HCC V24, CMS/HCC V28) Anemia, unspecified type Drug therapy TYPE AND SCREEN STAT 03/06/2025 8:02 AM EDT Iron deficiency Anemia, unspecified type Drug therapy CBC AND DIFFERENTIAL STAT 03/06/2025 8:02 AM EDT Chronic renal failure, stage 3 (moderate), unspecified whether stage 3a or 3b CKD (CMS/HCC V24, CMS/HCC V28) Anemia, unspecified type Drug therapy CBC WITH AUTO DIFFERENTIAL STAT 02/20/2025 8:13 AM EDT Chronic renal failure, stage 3 (moderate), unspecified whether stage 3a or 3b CKD (CMS/HCC V24, CMS/HCC V28) Anemia, unspecified type Drug therapy CBC AND DIFFERENTIAL STAT 02/20/2025 8:13 AM EDT Chronic renal failure, stage 3 (moderate), unspecified whether stage 3a or 3b CKD (CMS/HCC V24, CMS/HCC V28) Anemia, unspecified type Drug therapy TYPE AND SCREEN STAT 02/20/2025 8:13 AM EDT Anemia, unspecified Chronic kidney disease, stage III (moderate) (CMS/HCC V24, CMS/HCC V28) Drug therapy CT CHEST WO CONTRAST Routine 02/17/2025 9:45 AM EDT Lung nodules CBC WITH AUTO DIFFERENTIAL STAT 02/06/2025 7:59 AM EDT Chronic renal failure, stage 3 (moderate), unspecified whether stage 3a or 3b CKD (CMS/HCC V24, CMS/HCC V28) Anemia, unspecified type Drug therapy CBC AND DIFFERENTIAL STAT 02/06/2025 7:59 AM EDT Chronic renal failure, stage 3 (moderate), unspecified whether stage 3a or 3b CKD (CMS/HCC V24, CMS/HCC V28) Anemia, unspecified type Drug therapy TYPE AND SCREEN STAT 02/06/2025 7:59 AM EDT Anemia, unspecified Chronic kidney disease, stage III (moderate) (CMS/HCC V24, CMS/HCC V28) Drug therapy CBC WITH AUTO DIFFERENTIAL STAT 01/23/2025 7:53 AM EDT Chronic renal failure, stage 3 (moderate), unspecified whether stage 3a or 3b CKD (CMS/HCC V24, CMS/HCC V28) Anemia, unspecified type Drug therapy CBC AND DIFFERENTIAL STAT 01/23/2025 7:53 AM EDT Chronic renal failure, stage 3 (moderate), unspecified whether stage 3a or 3b CKD (CMS/HCC V24, CMS/HCC V28) Anemia, unspecified type Drug therapy TYPE AND SCREEN STAT 01/23/2025 7:53 AM EDT Anemia, unspecified Chronic kidney disease, stage III (moderate) (CMS/HCC V24, CMS/HCC V28) Drug therapy CT ANGIO ABDOMINAL AORTA W RUNOFF Routine 01/16/2025 11:21 AM EDT Aneurysm artery, iliac (CMS/HCC V24) CBC WITH AUTO DIFFERENTIAL STAT 01/09/2025 8:27 AM EDT Chronic renal failure, stage 3 (moderate), unspecified whether stage 3a or 3b CKD (CMS/HCC V24, CMS/HCC V28) Anemia, unspecified type Drug therapy CBC AND DIFFERENTIAL STAT 01/09/2025 8:27 AM EDT Chronic renal failure, stage 3 (moderate), unspecified whether stage 3a or 3b CKD (CMS/HCC V24, CMS/HCC V28) Anemia, unspecified type Drug therapy TYPE AND SCREEN STAT 01/09/2025 8:27 AM EDT Anemia, unspecified Chronic kidney disease, stage III (moderate) (CMS/HCC V24, CMS/HCC V28) Drug therapy CBC WITH AUTO DIFFERENTIAL STAT 12/26/2024 7:52 AM EDT Chronic renal failure, stage 3 (moderate), unspecified whether stage 3a or 3b CKD (CMS/HCC V24, CMS/HCC V28) Anemia, unspecified type Drug therapy CBC AND DIFFERENTIAL STAT 12/26/2024 7:52 AM EDT Chronic renal failure, stage 3 (moderate), unspecified whether stage 3a or 3b CKD (CMS/HCC V24, CMS/HCC V28) Anemia, unspecified type Drug therapy TYPE AND SCREEN STAT 12/26/2024 7:52 AM EDT Anemia, unspecified Chronic kidney disease, stage III (moderate) (CMS/HCC V24, CMS/HCC V28) Drug therapy BASIC METABOLIC PANEL Routine 12/12/2024 8:00 AM EDT Anemia, unspecified Chronic kidney disease, stage III (moderate) (CMS/HCC V24, CMS/HCC V28) Drug therapy Chronic renal failure, stage 3 (moderate), unspecified whether stage 3a or 3b CKD (CMS/HCC V24, CMS/HCC V28) Anemia, unspecified type MAGNESIUM Routine 12/12/2024 8:00 AM EDT Anemia, unspecified Chronic kidney disease, stage III (moderate) (CMS/HCC V24, CMS/HCC V28) Drug therapy Chronic renal failure, stage 3 (moderate), unspecified whether stage 3a or 3b CKD (CMS/HCC V24, CMS/HCC V28) Anemia, unspecified type CBC WITH AUTO DIFFERENTIAL STAT 12/12/2024 7:57 AM EDT Chronic renal failure, stage 3 (moderate), unspecified whether stage 3a or 3b CKD ([facility] V24, [facility] V28) Anemia, unspecified type Drug therapy CBC AND DIFFERENTIAL STAT 12/12/2024 7:57 AM EDT Chronic renal failure, stage 3 (moderate), unspecified whether stage 3a or 3b CKD ([facility] V24, [facility] V28) Anemia, unspecified type Drug therapy TYPE AND SCREEN STAT 12/12/2024 7:57 AM EDT Anemia, unspecified Chronic kidney disease, stage III (moderate) ([facility] V24, [facility] V28) Drug therapy HEMOGLOBIN A1C Routine 10/26/2024 10:58 AM EDT DM (diabetes mellitus) ([facility] V24, [facility] V28) Routine general medical examination at a health care facility HLD (hyperlipidemia) HTN (hypertension) A-fib ([facility] V24, [facility] V28) LIPID PANEL WITH REFLEX TO DIRECT LDL Routine 10/26/2024 10:58 AM EDT DM (diabetes mellitus) ([facility] V24, [facility] V28) Routine general medical examination at a health care facility HLD (hyperlipidemia) HTN (hypertension) A-fib ([facility] V24, [facility] V28) EXTERNAL COLONOSCOPY REPORT Routine 11/09/2014 1:00 PM EDT from Last 3 Months or Most Recently Relevant to Health Maintenance Results * (ABNORMAL) CBC auto differential (03/06/2025 8:02 AM EDT) Only the most recent of7 resultswithin the time period is included. WBC 8.6 4.8 - 10.8 K/[facility] LAB HEMETOLOGY METHOD 03/06/2025 8:15 AM EDT [facility] RBC 3.20(L) 4.50 - 5.50 M/mcL LAB HEMETOLOGY METHOD 03/06/2025 8:15 AM [facility] Hemoglobin 10.4(L) 13.5 - 17.5 g/dL LAB HEMETOLOGY METHOD 03/06/2025 8:15 AM [facility] Hematocrit 32.9(L) 42.0 - 54.0 % LAB HEMETOLOGY METHOD 03/06/2025 8:15 AM [facility] MCV 101.5(H) 79.0 - 98.0 FL LAB HEMETOLOGY METHOD 03/06/2025 8:15 AM [facility] MCH 32.1(H) 27.0 - 32.0 pcg LAB HEMETOLOGY METHOD 03/06/2025 8:15 AM [facility] MCHC 31.6(L) 32.0 - 37.0 g/dL LAB HEMETOLOGY METHOD 03/06/2025 8:15 AM [facility] RDW 15.9(H) 11.0 - 15.0 % LAB HEMETOLOGY METHOD 03/06/2025 8:15 AM [facility] Platelets 203 130 - 400 K/mcL LAB HEMETOLOGY METHOD 03/06/2025 8:15 AM [facility] MPV 10.8 7.0 - 11.0 FL LAB HEMETOLOGY METHOD 03/06/2025 8:15 AM [facility] NRBC 0.0 <1.0 % LAB HEMETOLOGY METHOD 03/06/2025 8:15 AM [facility] NRBC Absolute 0.00 <0.10 K/mcL LAB HEMETOLOGY METHOD 03/06/2025 8:15 AM [facility] Neutrophils Relative 76.2 % LAB HEMETOLOGY METHOD 03/06/2025 8:15 AM [facility] Lymphocytes Relative 12.2 % LAB HEMETOLOGY METHOD 03/06/2025 8:15 AM [facility] Monocytes Relative 8.9 % LAB HEMETOLOGY METHOD 03/06/2025 8:15 AM [facility] Eosinophils Relative 2.1 % LAB HEMETOLOGY METHOD 03/06/2025 8:15 AM [facility] Basophils Relative 0.3 % LAB HEMETOLOGY METHOD 03/06/2025 8:15 AM [facility] Immature Granulocytes Relative 0.3 % LAB HEMETOLOGY METHOD 03/06/2025 8:15 AM [facility] Neutrophils Absolute 6.56 1.50 - 7.00 K/mcL LAB HEMETOLOGY METHOD 03/06/2025 8:15 AM [facility] Lymphocytes Absolute 1.05 1.00 - 5.00 K/mcL LAB HEMETOLOGY METHOD 03/06/2025 8:15 AM [facility] Monocytes Absolute 0.77 0.20 - 1.00 K/mcL LAB HEMETOLOGY METHOD 03/06/2025 8:15 AM [facility] Eosinophils Absolute 0.18 0.00 - 0.50 K/mcL LAB HEMETOLOGY METHOD 03/06/2025 8:15 AM [facility] Basophils Absolute 0.03 0.00 - 0.20 K/mcL LAB HEMETOLOGY METHOD 03/06/2025 8:15 AM [facility] Immature Granulocytes Absolute 0.03 0.00 - 0.03 K/mcL LAB HEMETOLOGY METHOD 03/06/2025 8:15 AM [facility] Blood Venous blood specimen / Unknown Venipuncture / Unknown 03/06/2025 8:02 AM EDT 03/06/2025 8:09 AM EDT us Johny Bennett MD LAB BLOOD ORDERABLES Final R esult Performing Organization Address [facility]/ZIP Co de Phone Number [facility] [address] [place] [address], * Type and screen (03/06/2025 8:02 AM EDT) Only the most recent of7 resultswithin the time period is included. ABO Group O 03/06/2025 9:35 AM EDT [facility] Rh Type Positive 03/06/2025 9:35 AM EDT [facility] Antibody Screen Negative 03/06/2025 9:35 AM EDT [facility] Blood Venous blood specimen / Unknown Venipuncture / Unknown 03/06/2025 8:02 AM EDT 03/06/2025 8:09 AM EDT us Johny Bennett MD LAB BLOOD BANK TEST ORDERABL ES Final Result Performing Organization Address [facility]/ZIP Co de Phone Number [facility] [address] [place] [address], * CT Chest wo Contrast (02/17/2025 9:45 AM EDT) Anatomical Region Laterality Modality Body Computed Tomogra phy 02/22/2025 1:53 PM EDT Impressions 02/22/2025 2:16 PM EDT 1. A 1 cm nodule and adjacent groundglass opacity in the superior segment of the left lower lobe seen on the previous study have resolved and were presumably inflammatory. 2. Nodular liver contour suggestive of cirrhosis. 3. Stable bilateral adrenal nodules. As previously described, these are likely adenomas. -------- FINAL REPORT -------- Dictated By: Steve Aldrich Dictated Date: 02/22/2025 13:53 ET Assigned Physician: Steve Aldrich Reviewed and Electronically Signed By: Steve Aldrich Signed Date: 02/22/2025 14:16 ET Workstation ID: [id number] Transcribed By: Self Edit Transcribed Date: 02/22/2025 13:53 ET Narrative 02/22/2025 2:16 PM EDT PROCEDURE: CT of the chest without intravenous contrast. TECHNIQUE: CT of the chest without intravenous contrast administration. Coronal and sagittal reformats and MIP reconstructions were created. Dose length product: 493 mGy-cm. HISTORY: Lung nodule, > 8mm COMPARISON: 11/08/24. FINDINGS: LUNGS/PLEURA: Mild segmental bronchiectasis and bronchial wall thickening in both lower lobes. No suspicious endobronchial lesion. Mild centrilobular emphysema. Thin bands of scarring and/or atelectasis at both bases. There are two stable 2-3 mm right middle lobe nodules, series 3, image 170. A 10 mm nodule and adjacent groundglass opacity in the superior segment of the left lower lobe seen on the October 2024 have resolved and were presumably inflammatory. No pleural effusion or pneumothorax. MEDIASTINUM/HARLEEN: Mildly patulous esophagus. No mediastinal mass or lymphadenopathy. Interval decrease in size of a previously noted mildly prominent AP window node. No appreciable hilar lymphadenopathy on limited noncontrast evaluation. VASCULATURE: Mildly prominent central pulmonary arteries could be secondary to pulmonary hypertension. Moderate atherosclerotic calcifications of the aorta and great vessels. CARDIAC: Normal heart size. Left atrial appendage occlusion device. Mild left atrial enlargement. Mild coronary artery calcification. CHEST WALL: No axillary or supraclavicular lymphadenopathy. LIMITED ABDOMEN: Nodular liver contour suggestive of cirrhosis. Stable bilateral adrenal nodules. Atherosclerotic calcifications. BONES: Mild degenerative changes of the spine. Stable L1 hemangioma. Remote healed right lateral 8th rib fracture. Procedure Note Steve Aldrich MD - 02/22/2025 PROCEDURE: CT of the chest without intravenous contrast. TECHNIQUE: CT of the chest without intravenous contrast administration.Coronal and sagittal reformats and MIP reconstructions were created. Dose length product: 493 mGy-cm. HISTORY: Lung nodule, > 8mm COMPARISON: 11/08/24. FINDINGS: LUNGS/PLEURA: Mild segmental bronchiectasis and bronchial wall thickeningin both lower lobes. No suspicious endobronchial lesion. Mildcentrilobular emphysema. Thin bands of scarring and/or atelectasis atboth bases. There are two stable 2-3 mm right middle lobe nodules, series3, image 170. A 10 mm nodule and adjacent groundglass opacity in the superior segment ofthe left lower lobe seen on the October 2024 have resolved and werepresumably inflammatory. No pleural effusion or pneumothorax. MEDIASTINUM/HARLEEN: Mildly patulous esophagus. No mediastinal mass orlymphadenopathy. Interval decrease in size of a previously noted mildlyprominent AP window node. No appreciable hilar lymphadenopathy on limitednoncontrast evaluation. VASCULATURE: Mildly prominent central pulmonary arteries could besecondary to pulmonary hypertension. Moderate atheroscleroticcalcifications of the aorta and great vessels. CARDIAC: Normal heart size. Left atrial appendage occlusion device. Mildleft atrial enlargement. Mild coronary artery calcification. CHEST WALL: No axillary or supraclavicular lymphadenopathy. LIMITED ABDOMEN: Nodular liver contour suggestive of cirrhosis. Stablebilateral adrenal nodules. Atherosclerotic calcifications. BONES: Mild degenerative changes of the spine. Stable L1 hemangioma.Remote healed right lateral 8th rib fracture. IMPRESSION: 1. A 1 cm nodule and adjacent groundglass opacity in the superior segmentof the left lower lobe seen on the previous study have resolved and werepresumably inflammatory. 2. Nodular liver contour suggestive of cirrhosis. 3. Stable bilateral adrenal nodules. As previously described, these arelikely adenomas. -------- FINAL REPORT -------- Dictated By: Steve Aldrich Dictated Date: 02/22/2025 13:53 ET Assigned Physician: Steve Aldrich Reviewed and Electronically Signed By: Steve Aldrich Signed Date: 02/22/2025 14:16 ET Workstation ID: [id number] Transcribed By: Self Edit Transcribed Date: 02/22/2025 13:53 ET Jessica Neal MD IMG CT PROCEDURES Final Result * CT Angio Abdominal Aorta w Runoff (01/16/2025 11:21 AM EDT) Anatomical Region Laterality Modality Body Computed Tomogra phy 01/19/2025 7:22 AM EDT Impressions 01/19/2025 8:26 AM EDT There are bilateral iliac artery aneurysms. No evidence of hemorrhage. No significant femoral popliteal disease. Bilateral three-vessel runoff into the distal calf. Prior right nephrectomy. No measurable adenopathy Bilateral adrenal masses which are likely unchanged when compared to 2016. -------- FINAL REPORT -------- Dictated By: Lance Moss Dictated Date: 01/19/2025 07:22 ET Assigned Physician: Lance Moss Reviewed and Electronically Signed By: Lance Moss Signed Date: 01/19/2025 08:26 ET Workstation ID: [id number] Transcribed By: Self Edit Transcribed Date: 01/19/2025 07:22 ET Narrative 01/19/2025 8:26 AM EDT EXAM: CT ANGIO ABDOMINAL AORTA W RUNOFF INDICATION: Aneurysm, pelvis or lower extremity. Bilateral iliac artery aneurysms. Myelodysplastic syndrome. Prior right nephrectomy. COMPARISON: Portions of prior CT 08/26/24 TECHNIQUE: CT angiography of the abdomen, pelvis and lower extremities was performed using contiguous helical images from the diaphragm to the feet, during intravenous injection of 120 ml of ISOVUE-370. 0.625 mm axial images were reconstructed. Sagittal and coronal reformatted images were rendered. DLP: 1793 mGy-cm MIP images were created using contemporaneous radiologist supervision with permanent images saved to PACS. Postprocessing was performed. FINDINGS: There is venous contamination. There is metallic artifact which limits the exam. ABDOMINAL AORTA: There is no abdominal aortic aneurysm. There is calcified plaque. There is no surrounding hemorrhage or collection. CELIAC: There is some narrowing in the proximal celiac axis. There is mild dilation of the celiac prior to the bifurcation which measures up to 1.2 cm. There is enhancement in the proximal hepatic and splenic arteries. SMA: Widely patent. SHAYNA: Widely patent. RIGHT RENAL ARTERY: There has been right nephrectomy. The orifice of the right renal artery enhances. LEFT RENAL ARTERY: The solitary left renal artery is widely patent. Mild calcified plaque. RIGHT LOWER EXTREMITY: COMMON ILIAC ARTERY: The right common iliac artery is patent. The origin of the right common iliac artery measures 1.4 cm. There is mild dilation of the mid right common iliac artery (1.9 cm). There is a slightly saccular aneurysm of the distal right common iliac artery which measures 2.6 cm transversely. This is unchanged since 08/26/24. EXTERNAL ILIAC ARTERY: The right external iliac artery is widely patent. There are calcified plaques. INTERNAL ILIAC ARTERY: The right internal iliac artery is widely patent. There are multiple calcified plaques. COMMON FEMORAL ARTERY: Widely patent with some calcified plaque. PROFUNDA FEMORAL ARTERY: The right profunda femoral enhances into the proximal thigh. SUPERFICIAL FEMORAL ARTERY: Widely patent with calcified plaques but no significant narrowing POPLITEAL ARTERY: Widely patent. No significant narrowing. ANTERIOR TIBIAL ARTERY: There are multiple calcified plaques with areas of narrowing. The anterior tibial artery is patent into the foot. TIBIOPERONEAL TRUNK: Multiple calcified plaques with mild narrowing. POSTERIOR TIBIAL: There is atherosclerotic irregularity with calcified plaques. The posterior tibial artery is patent into the foot. PERONEAL ARTERY: There is atherosclerotic irregularity. The peroneal enhances into the distal calf. LEFT LOWER EXTREMITY: COMMON ILIAC ARTERY: The left common iliac artery measures 1.6 cm proximally. There is calcified plaque. There is an aneurysm in the distal left common iliac artery which extends to the origin of the internal iliac. This measures at least 3.1 cm transversely (2/465). This is not significantly changed. EXTERNAL ILIAC ARTERY: The left external iliac artery is widely patent. There are calcified plaques. INTERNAL ILIAC ARTERY: The left internal iliac artery measures 1.5 cm proximally which is unchanged. There are multiple calcified plaques. COMMON FEMORAL ARTERY: Widely patent with some calcified plaque. PROFUNDA FEMORAL ARTERY: The profunda femoral on the left enhances into the proximal thigh. SUPERFICIAL FEMORAL ARTERY: The left superficial femoral artery is widely patent throughout the thigh. There are is multiple calcified plaques but no significant narrowing. POPLITEAL ARTERY: Widely patent with calcified plaque. Mild narrowing distally. ANTERIOR TIBIAL ARTERY: There is atherosclerotic irregularity with multiple calcified plaques. The anterior tibial artery is patent into the foot. TIBIOPERONEAL TRUNK: Patent with calcified plaque. POSTERIOR TIBIAL: There is enhancement with atherosclerotic irregularity. The posterior tibial artery enhances into the foot. PERONEAL ARTERY: There is atherosclerotic irregularity. The peroneal enhances into the distal calf. There is at least some narrowing. NONVASCULAR LIVER: There is some peripheral high density along the lower aspect of the right lobe of the liver which could be perfusion abnormality. The liver contour is slightly irregular. No suspicious focal liver lesion. BILIARY TRACT: There is at least one small gallstone. There is no gallbladder wall thickening. There is no biliary dilation. SPLEEN: Early enhancement limits assessment. PANCREAS: No suspicious abnormality. ADRENAL GLANDS: There is a smooth low density 2.9 x 1.8 cm oval right adrenal mass. There is a minimally heterogeneous 3.9 x 2.5 cm left adrenal mass. The left adrenal mass was partially included on chest CT 03/14/16 and measured approximately 4.2 x 2.8 cm. This suggests benignity. The right adrenal was only partially included but was likely unchanged. KIDNEYS: Prior right nephrectomy. No suspicious abnormality in the right nephrectomy bed. There is no dilation of the collecting system on the left. There are some cysts within the left kidney. There are areas of cortical loss in the left kidney. No suspicious left renal mass. GASTROINTESTINAL TRACT: No localized colonic wall thickening. There are colonic diverticula. There is no CT evidence of acute appendicitis. No suspicious abnormality of the stomach. No significant small bowel dilation. URINARY BLADDER: No suspicious mass. Metallic artifact limits assessment. PELVIC VISCERA: The prostate is enlarged. Metallic artifact limits assessment. ABDOMINAL WALL: No significant hernia is appreciated. Fat protrudes into the inguinal canal with some fluid in the right inguinal canal. LYMPHOVASCULAR STRUCTURES AND FLUID: There are no measurably enlarged lymph nodes. There is no significant free intraperitoneal fluid. MUSCULOSKELETAL: Metallic artifact related to right hip instrumentation. There is degenerative change in the spine greatest at L4/L5 and L5/S1. There is narrowing with osteophyte and subchondral cystic/erosive change involving the left hip. VISUALIZED LOWER CHEST: The heart is enlarged. There are a few nonspecific lung base opacities Procedure Note Lance Moss MD - 01/19/2025 EXAM: CT ANGIO ABDOMINAL AORTA W RUNOFF INDICATION: Aneurysm, pelvis or lower extremity. Bilateral iliac arteryaneurysms. Myelodysplastic syndrome. Prior right nephrectomy. COMPARISON: Portions of prior CT 08/26/24 TECHNIQUE: CT angiography of the abdomen, pelvis and lower extremities wasperformed using contiguous helical images from the diaphragm to the feet,during intravenous injection of 120 ml of ISOVUE-370. 0.625 mm axialimages were reconstructed. Sagittal and coronal reformatted images wererendered. DLP: 1793 mGy-cm MIP images were created using contemporaneous radiologist supervision withpermanent images saved to PACS. Postprocessing was performed. FINDINGS: There is venous contamination. There is metallic artifact which limitsthe exam. ABDOMINAL AORTA: There is no abdominal aortic aneurysm. There iscalcified plaque. There is no surrounding hemorrhage or collection. CELIAC: There is some narrowing in the proximal celiac axis. There ismild dilation of the celiac prior to the bifurcation which measures up to1.2 cm. There is enhancement in the proximal hepatic and splenicarteries. SMA: Widely patent. SHAYNA: Widely patent. RIGHT RENAL ARTERY: There has been right nephrectomy. The orifice of theright renal artery enhances. LEFT RENAL ARTERY: The solitary left renal artery is widely patent. Mildcalcified plaque. RIGHT LOWER EXTREMITY: COMMON ILIAC ARTERY: The right common iliac artery is patent. The originof the right common iliac artery measures 1.4 cm. There is mild dilationof the mid right common iliac artery (1.9 cm). There is a slightlysaccular aneurysm of the distal right common iliac artery which measures2.6 cm transversely. This is unchanged since 08/26/24. EXTERNAL ILIAC ARTERY: The right external iliac artery is widely patent.There are calcified plaques. INTERNAL ILIAC ARTERY: The right internal iliac artery is widely patent.There are multiple calcified plaques. COMMON FEMORAL ARTERY: Widely patent with some calcified plaque. PROFUNDA FEMORAL ARTERY: The right profunda femoral enhances into theproximal thigh. SUPERFICIAL FEMORAL ARTERY: Widely patent with calcified plaques but nosignificant narrowing POPLITEAL ARTERY: Widely patent. No significant narrowing. ANTERIOR TIBIAL ARTERY: There are multiple calcified plaques with areasof narrowing. The anterior tibial artery is patent into the foot. TIBIOPERONEAL TRUNK: Multiple calcified plaques with mild narrowing. POSTERIOR TIBIAL: There is atherosclerotic irregularity with calcifiedplaques. The posterior tibial artery is patent into the foot. PERONEAL ARTERY: There is atherosclerotic irregularity. The peronealenhances into the distal calf. LEFT LOWER EXTREMITY: COMMON ILIAC ARTERY: The left common iliac artery measures 1.6 cmproximally. There is calcified plaque. There is an aneurysm in thedistal left common iliac artery which extends to the origin of theinternal iliac. This measures at least 3.1 cm transversely (2/465). Thisis not significantly changed. EXTERNAL ILIAC ARTERY: The left external iliac artery is widely patent.There are calcified plaques. INTERNAL ILIAC ARTERY: The left internal iliac artery measures 1.5 cmproximally which is unchanged. There are multiple calcified plaques. COMMON FEMORAL ARTERY: Widely patent with some calcified plaque. PROFUNDA FEMORAL ARTERY: The profunda femoral on the left enhances intothe proximal thigh. SUPERFICIAL FEMORAL ARTERY: The left superficial femoral artery is widelypatent throughout the thigh. There are is multiple calcified plaques butno significant narrowing. POPLITEAL ARTERY: Widely patent with calcified plaque. Mild narrowingdistally. ANTERIOR TIBIAL ARTERY: There is atherosclerotic irregularity withmultiple calcified plaques. The anterior tibial artery is patent into thefoot. TIBIOPERONEAL TRUNK: Patent with calcified plaque. POSTERIOR TIBIAL: There is enhancement with atherosclerotic irregularity.The posterior tibial artery enhances into the foot. PERONEAL ARTERY: There is atherosclerotic irregularity. The peronealenhances into the distal calf. There is at least some narrowing. NONVASCULAR LIVER: There is some peripheral high density along the lower aspect of theright lobe of the liver which could be perfusion abnormality. The livercontour is slightly irregular. No suspicious focal liver lesion. BILIARY TRACT: There is at least one small gallstone. There is nogallbladder wall thickening. There is no biliary dilation. SPLEEN: Early enhancement limits assessment. PANCREAS: No suspicious abnormality. ADRENAL GLANDS: There is a smooth low density 2.9 x 1.8 cm oval rightadrenal mass. There is a minimally heterogeneous 3.9 x 2.5 cm leftadrenal mass. The left adrenal mass was partially included on chest CT03/14/16 and measured approximately 4.2 x 2.8 cm. This suggestsbenignity. The right adrenal was only partially included but was likelyunchanged. KIDNEYS: Prior right nephrectomy. No suspicious abnormality in the rightnephrectomy bed. There is no dilation of the collecting system on theleft. There are some cysts within the left kidney. There are areas ofcortical loss in the left kidney. No suspicious left renal mass. GASTROINTESTINAL TRACT: No localized colonic wall thickening. There arecolonic diverticula. There is no CT evidence of acute appendicitis. Nosuspicious abnormality of the stomach. No significant small bowel dilation. URINARY BLADDER: No suspicious mass. Metallic artifact limitsassessment. PELVIC VISCERA: The prostate is enlarged. Metallic artifact limitsassessment. ABDOMINAL WALL: No significant hernia is appreciated. Fat protrudes intothe inguinal canal with some fluid in the right inguinal canal. LYMPHOVASCULAR STRUCTURES AND FLUID: There are no measurably enlargedlymph nodes. There is no significant free intraperitoneal fluid. MUSCULOSKELETAL: Metallic artifact related to right hip instrumentation.There is degenerative change in the spine greatest at L4/L5 and L5/S1.There is narrowing with osteophyte and subchondral cystic/erosive changeinvolving the left hip. VISUALIZED LOWER CHEST: The heart is enlarged. There are a fewnonspecific lung base opacities IMPRESSION: There are bilateral iliac artery aneurysms. No evidence of hemorrhage. No significant femoral popliteal disease. Bilateral three-vessel runoff into the distal calf. Prior right nephrectomy. No measurable adenopathy Bilateral adrenal masses which are likely unchanged when compared [id number]. -------- FINAL REPORT -------- Dictated By: Lance Moss Dictated Date: 01/19/2025 07:22 ET Assigned Physician: Lance Moss Reviewed and Electronically Signed By: Lance Moss Signed Date: 01/19/2025 08:26 ET Workstation ID: [id number] Transcribed By: Self Edit Transcribed Date: 01/19/2025 07:22 ET Peter Thorne MD IMG CT PROCEDURES Final Result * Magnesium (12/12/2024 8:00 AM EDT) Pathologist [facility] Magnesium 2.3 1.9 - 2.6 mg/dL LAB CHEMISTRY METHOD 12/12/2024 8:33 AM EDT [facility] Blood Venous blood specimen / Unknown Venipuncture / Unknown 12/12/2024 8:00 AM EDT 12/12/2024 8:13 AM EDT Donny Dodd MD LAB BLOOD ORDERABLES Final Resul t [facility] [address] [place] [address], * (ABNORMAL) Basic metabolic panel (12/12/2024 8:00 AM EDT) Pathologist [facility] Sodium 137 133 - 145 mmol/L LAB CHEMISTRY METHOD 12/12/2024 9:21 AM EDT [facility] Potassium 2.9(LL) 3.5 - 5.5 mmol/L LAB CHEMISTRY METHOD 12/12/2024 9:21 AM [facility] Chloride 93(L) 96 - 110 mmol/L LAB CHEMISTRY METHOD 12/12/2024 9:21 AM [facility] CO2 39(H) 21 - 32 mmol/L LAB CHEMISTRY METHOD 12/12/2024 9:21 AM [facility] Anion Gap 5 3 - 11 LAB CHEMISTRY METHOD 12/12/2024 9:21 AM [facility] Glucose 291(H) 70 - 100 mg/dL LAB CHEMISTRY METHOD 12/12/2024 9:21 AM [facility] BUN 71(H) 5 - 25 mg/dL LAB CHEMISTRY METHOD 12/12/2024 9:21 AM [facility] Creatinine 2.06(H) 0.70 - 1.30 mg/dL LAB CHEMISTRY METHOD 12/12/2024 9:21 AM [facility] eGFR 33(L) >=60 mL/min/1. 73m2 LAB CHEMISTRY METHOD 12/12/2024 9:21 AM [facility] Comment:Calculation based on the Chronic Kidney Disease Epidemiology Collaboration (CKD-EPI) equation refit without adjustment for race. BUN/Creatinine Ratio 34.5 LAB CHEMISTRY METHOD 12/12/2024 9:21 AM [facility] Calcium 8.9 8.5 - 10.5 mg/dL LAB CHEMISTRY METHOD 12/12/2024 9:21 AM [facility] Blood Venous blood specimen / Unknown Venipuncture / Unknown 12/12/2024 8:00 AM EDT 12/12/2024 8:13 AM EDT us Donny Dodd MD LAB BLOOD ORDERABLES Final Resul t [facility] [address] [place] [address], [place] [phone] * Lipid panel with reflex to direct LDL (10/26/2024 10:58 AM EDT) Cholesterol 121 0 - 200 mg/dL LAB CHEMISTRY METHOD 10/26/2024 6:31 PM EDT [facility] Triglycerides 59 0 - 150 mg/dL LAB CHEMISTRY METHOD 10/26/2024 6:31 PM EDT [facility] HDL 59 >=40 mg/dL LAB CHEMISTRY METHOD 10/26/2024 6:31 PM EDT [facility] LDL Calculated 50 0 - 100 mg/dL LAB CHEMISTRY METHOD 10/26/2024 6:31 PM EDT [facility] VLDL Cholesterol Esa 11.8 mg/dL LAB CHEMISTRY METHOD 10/26/2024 6:31 PM EDT [facility] Non HDL Chol. (LDL+VLDL) 62 <145 mg/dL LAB CHEMISTRY METHOD 10/26/2024 6:31 PM EDT [facility] Chol/HDL Ratio 2.1 0.0 - 4.4 LAB CHEMISTRY METHOD 10/26/2024 6:31 PM EDT [facility] Blood Venous blood specimen / Unknown Venipuncture / Unknown 10/26/2024 10:58 AM EDT 10/26/2024 10:58 AM EDT [facility] LAB BLOOD ORDERABLES Final Resul t [facility] [address] [place] [address], [place] [phone] * Hemoglobin A1c (10/26/2024 10:58 AM EDT) Hemoglobin A1C 6.2 <6.5 % LAB CHEMISTRY METHOD 10/26/2024 10:51 PM EDT [facility] Mean Bld Glu Estim. 131 mg/dL LAB CHEMISTRY METHOD 10/26/2024 10:51 PM EDT [facility] Blood Venous blood specimen / Unknown Venipuncture / Unknown 10/26/2024 10:58 AM EDT 10/26/2024 10:58 AM EDT [facility] LAB BLOOD ORDERABLES Final Resul t [facility] [address] [place] [address], [place] [phone] * External Colonoscopy Report (11/09/2014 1:00 PM EDT) Anatomical Region Laterality Modality Endoscopy Historical Provider GI~PROCEDURE ORDERABLES F inal Result from Last 3 Months or Most Recently Relevant to Health Maintenance Insurance [employer] [place]IC[place]AGE Advance Directives Documents on File Type Date Recorded Patient [employer] Expl anation Health Care Decision (hx) 09/27/2020 [...] Law Spouse Health Care Agent Care Teams 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
--- OUTSIDE RECORDS SUMMARY | 2025-03-14 10:59 | XMS_ITS ---
Author Organization [facility] Address [address] [place] [address] Phone Care Team Providers Care Abe Teacher Name Role Phone Grayson Berrios DO Primary Care Provider [phone] Active Problems Problem Noted Date Diagnosed Date Prominent popliteal pulse 11/14/2024 Liver cirrhosis ([facility] V24, [facility] V28) 09/28 Assessment & Plan (09/28/2024 1:00 PM EDT): LFTs are low to normal based on most recent lab work. Recent CTA completed shows no hepatoma. Recall 6 months for routine surveillance with lab work and ultrasound. Chronic blood loss anemia 09/20/2024 Drug therapy 09/05/2024 Gastrointestinal hemorrhage, unspecified gastrointestinal hemorrhage type 08/24/2024 CHF (congestive heart failure) ([facility] V24, [facility] V28) 08/24/2024 CAD (coronary artery disease) 08/24/2024 Liver disease 08/24/2024 Chronic obstructive pulmonar y disease ([facility] V24, [facility] V28) 08/24/2024 Chronic renal impairment, stage 3 (moderate) Dysrhythmias 08/24/2024 BRBPR (bright red blood per rectum) 07/29/2024 BPH (benign prostatic hyperplasia) 07/17/2024 Chronic respiratory failure with hypoxia ([facility] V24, [facility] V28) 07/17/2024 Clear cell carcinoma of kidney ([facility] V24, [facility] V28) 07/17/2024 Dyslipidemia 07/17/2024 (HFpEF) heart failure with p reserved ejection fraction ([facility] V24, [facility] V28) 07/17/2024 COPD with emphysema ([facility] V24, [facility] V28) 0 07/17/2024 CRF (chronic renal failure) 06/16/2024 Iron deficiency 05/27/2024 Anemia, unspecified type 05/24/2024 Myelodysplastic syndrome ([facility] V24, [facility] V 28) 04/06/2024 Diabetes type 2, controlled ([facility] V24, [facility] V28) 01/25/2024 COPD (chronic obstructive pu lmonary disease) ([facility] V24, [facility] V28) 01/25/2024 Benign hypertensive renal disease 11/26/2020 Stage 3a chronic kidney disease ([facility] V24, S/[facility] V28) 11/26/2020 Depressive disorder 01/01/2007 Congestive heart failure ([facility] V24, [facility] V 28) 08/10/2006 Overview (09/20/2024): EF 25-30% echo 07/08, cath negative IMO update Atrial fibrillation ([facility] V24, [facility] V28) 0 07/18/2005 Malaise and fatigue 07/18/2005 Obesity, unspecified 07/18/2005 Alcohol abuse 05/05/2005 Essential hypertension, benign 05/05/2005 Current Treatment and Therapy Plans FERUMOXYTOL ( FERAHEME ) 510 mg IVPB* Plan Start Date:08/09/2024 Plan Provider:Johny Bennett MD Linked Problems Myelodysplastic syndrome ( S/HCC V24, [facility] V28)Anemia, unspecified typeIron deficiency Treatment Medications No medications scheduled. OUTPATIENT TRANSFUSION (PRN)* Plan Start Date:04/06/2024 Plan Provider:Johny Bennett MD Linked Problems Myelodysplastic syndrome ([facility] V24, [facility] V28) Treatment Medications No medications scheduled. Other Current Plans EPOETIN [place] - ORIGINATOR OR BIOSIMILAR - ONCOLOGY ( SUBCUTANEOUS INJECTION )* Plan Start Date:06/17/2024 Plan Provider:Johny Bennett MD Linked Problems Chronic renal failure, stage 3 (moderate), unspecified whether stage 3a or 3b CKD ([facility] V24, [facility] V28)Anemia, unspecified typeDrug therapy Treatment Medications No medications scheduled. Past Treatment and Therapy Plans No past plan information found.
== END ==
LOC: HO.CARD 09:46
PROVIDERS: Visit Provider Internal Medicine Cardiovascular Disease
DX: I50.32 Chronic diastolic (congestive) heart failure (principal)
CPT/HCPCS: 93306

== ENCOUNTER → 2025-03-14 09:49 | Outpatient (BNV) | payer MEDICARE, SELFPAY | PROVIDERS: Visit Provider Internal Medicine | DX: I51.7 Cardiomegaly (principal); I77.810 Thoracic aortic ectasia | CPT/HCPCS: 93306 ==

== ENCOUNTER 2025-03-27 10:43 | Outpatient (AMB) | payer MEDICARE, SELFPAY ==
[2025-03-27 10:45] VITALS: BP 116/66; PULSE 65; BMI 28.5
--- NOTE | 2025-03-27 10:45 | MHC.OFFVIS ---
Vital Signs 03/27/25 10:45 Height 5 ft 8 in Weight 187 lb 6.287 oz BMI 28.5 BP 116/66 Blood Pressure Location Lt brachial Position Sitting Pulse 65 Intake Visit Reasons: 6m follow up Intake Note: 6 month follow-up feeling ok Well Logging Captain Required: No Lunchroom Supervisor: Lunchroom Supervisor Present Accompanied by: Spouse Allergies No Known Allergies Allergy (Verified 12/27/24 14:36) Medication List - Last Reconciled 03/27/25 by Mateo Bird MD albuterol sulfate 90 mcg/actuation 2 inhalations inhalation QID PRN ascorbic acid (vitamin C) 500 mg PO DAILY cholecalciferol (vitamin D3) 1,250 mcg PO QWEEK 3 months cyanocobalamin (vitamin B-12) 1,000 mcg PO DAILY ezetimibe 10 mg PO DAILY ferrous gluconate 324 mg PO DAILY fluticasone furoate-vilanterol 100-25 mcg/dose (Breo Ellipta) 1 inh inhalation DAILY metolazone 2.5 mg PO DAILY PRN omeprazole 40 mg PO DAILY@0630 potassium chloride ER 20 mEq PO QID pravastatin 80 mg PO DAILY spironolactone 12.5 mg (1/2 x 25 mg) PO DAILY torsemide 40 mg (2 x 20 mg) PO BID umeclidinium 62.5 mcg/actuation (Incruse Ellipta) 1 inh inhalation DAILY HPI Comments Details: Deny comes for follow-up, accompanied by his . More recently notices that he is more fatigued and tired. He also notices more shortness of breath with exertion. Recently noted to have recurrent anemia without any overt bleeding. Patient has a follow up with Hematology in near future for possible iron infusion/transfusion. He was also recently seen by vascular surgery and was noted to have bilateral iliac artery aneurysm which need to be repaired. Options including surgical repair versus endovascular repair versus careful observation. Patient denies any orthopnea, PND, leg edema. Denies any prolonged palpitation irregular heartbeat. Takes metolazone about once a week. [facility] Medical History Hypokalemia Chronic heart failure with preserved ejection fraction (HFpEF) Chronic a-fib Severe anemia Macrocytic anemia Partial small bowel obstruction Anemia CHF (congestive heart failure) Diabetes mellitus CKD (chronic kidney disease) HTN (hypertension) Biatrial enlargement Pulmonary hypertension HLD (hyperlipidemia) Current use of anticoagulant therapy Surgical History Hx of total hip arthroplasty Hx of colonoscopy Hx of esophagogastroduodenoscopy History of nephrectomy Hx of hernia repair Family History Father Cancer Mother No problems noted. Social History Household Members: Significant Other Housing: House Do you presently have visiting nurse or other home services: No Comment: refused bed alarm Patient Tobacco Use Status: Former Tobacco user Second Hand Smoke Exposure: No Advance Directives Date on File: 06/01/00 service: No Review of Systems Const Denies chills, Denies fatigue, Denies fever(s), Denies frequent falls, Denies weakness, Denies weight gain and Denies weight loss ENT Denies dizziness Card Denies chest pain, Denies leg edema, Denies lightheadedness, Denies palpitations, Denies dyspnea, Denies dyspnea on exertion, Denies orthopnea and Denies other (loss of consciousness) Resp Denies cough, Denies dyspnea and Denies dyspnea on exertion GI Denies hematochezia and Denies change in stool character Musc Denies abnormal gait, Denies muscle weakness, Denies numbness, Denies radiating pain into limb and Denies tingling Neuro Denies abnormal gait, Denies dizziness, Denies frequent falls, Denies numbness, Denies tingling and Denies weakness Endo Denies fatigue and Denies palpitations Physical Exam Vital Signs: Last Vital Signs Pulse 65 03/27/25 10:45 BP 116/66 03/27/25 10:45 BMI result Body Mass Index 28.5 Const Other: wearing O2 with nasal cannula General: cooperative, comfortable, no acute distress, alert, awake and tired appearing Nutritional Appearance: average body habitus Orientation/consciousness: patient oriented x3 Neck Neck: No no JVD Resp Effort & Inspection: normal respiratory effort Auscultation: no rhonchi, no wheezes and diminished lung sounds Cardio Jugular venous distension: no JVD Rate: regular rate Rhythm: abnormal rhythm Heart sounds: S1 normal heart sound present, S2 normal heart sound present, no click, no murmurs and no rubs GI Inspection: Yes normal to inspection Skin General skin exam: ecchymosis Neuro General: patient oriented x3 Extrem Other: edema in lower legs, R>L, mid calf down to feet General: No clubbing, No cyanosis, No edema and Yes venous stasis dermatitis Psych Appearance: grossly normal Mental Status: mental status grossly normal Speech and movement: Normal speech and movement present Assessment & Plan Assessment & Plan (1) Chronic heart failure with preserved ejection fraction (HFpEF): Code(s): I50.32 - Chronic diastolic (congestive) heart failure Category: Medical Plan: Patient with heart failure with preserved ejection fraction with chronic respiratory failure related to COPD, clinically appears to be euvolemic and well compensated on current diuretic dose. Understands heart failure management well. However he is having increasing symptoms more currently which is being followed by Hematology. I would consider repeat transfusion or iron infusion of his hematocrit remains low to help with his overall cardio pulmonary function. Meanwhile continue oxygen therapy. Continue pulmonary optimization. Clinically appears to be euvolemic well compensated and that has no role for additional diuretic therapy is at this point time. He has multiple comorbidities to his heart failure including advancing renal insufficiency, underlying significant COPD requiring oxygen, recurrent anemia, chronic atrial fibrillation as well as pulmonary hypertension. Goals of therapy were discussed. Will follow up in 3 months. (2) Chronic a-fib: Code(s): I48.20 - Chronic atrial fibrillation, unspecified Category: Medical Plan: Chronic atrial fibrillation, currently rate controlled on current therapy. Continue rate control therapy. Status post Watchman device in his off oral anticoagulation. He is also off aspirin therapy due to recurrent anemia. Continue monitor clinically. Overall no treatment is needed additionally for his atrial fibrillation. (3) Preoperative cardiovascular examination: Code(s): Z01.810 - Encounter for preprocedural cardiovascular examination Plan: Preoperative cardiovascular risk stratification for proposed vascular surgery, preferred endovascular repair. At this point time I think endovascular repair would be preferable and open surgical repair would be high risk for him. Endovascular repair would be intermediate risk. This was discussed with him. I would further optimize his hematocrit prior to pursuing any form of interventional procedure as anymore blood loss may decompensated his cardiopulmonary status. This was discussed with him. Continue his usual diuretics regimen in the perioperative. Will follow up in the clinic in 3 months time, sooner PRN. Thank you for allowing me to partake in his care Coding Level of Care Code Est Pt Level 4 (61958) Complex EM visit Add On G2211 Diagnoses Chronic heart failure with preserved ejection fraction (HFpEF) I50.32 Chronic a-fib I48.20 Preoperative cardiovascular examination Z01.810
--- OUTSIDE RECORDS SUMMARY | 2025-03-27 13:09 | XMS_ITS | Clinical Summary ---
Author Organization [facility] Address [address] [place] [address] Phone Care Team Providers Care Retread Builder Name Role Phone Self-Referred, Patient Unavailable Unavailab Johny Hopkins MD Unavailable [phone] Grayson Berrios DO Primary Care Provider [phone] Jesus Beasley MD Unavailable [phone] Jessica Batista MD Unavailable [phone] Peter Thorne MD Unavailable [phone] Mateo Bird MD Unavailable [phone] Donny Dodd MD Unavailable Allergies No known active allergies Medications albuterol 90 mcg/actuation inhaler 2 puffs every 4 (four) hours as needed. 05/04/2024 Active ascorbic acid, vitamin C, (VITAMIN C) 500 MG tablet Take 500 mg by mouth daily. Active ezetimibe (ZETIA) 10 mg tablet Take 10 mg by mouth daily. for 90 days Active ferrous sulfate 325 mg (65 mg [place] iron) tablet Take 1 tablet (325 mg [...] Leukemia, Division of Hematologic Oncology, [facility] [address] [place] [address], [address] [place] [address] Keith Singh MD Myelodysplastic syndrome (Primary Dx) [...] EDT) WBC 5.13 4.00 - 10.00 K/uL [facility] LIC# [id number] RBC 3.27(L) 4.50 - 6.40 M/uL [facility] LIC# [id number] HGB 10.7(L) 13.5 - 18.0 g/dL [facility] LIC# [id number] HCT 33.3(L) 40.0 - 54.0 % [facility] LIC# [id number] PLT 164 150 - 450 K/uL [facility] LIC# [id number] MCV 101.8(H) 80.0 - 100.0 fL [facility] LIC# [id number] MCH 32.7(H) 27.0 - 32.0 pg [facility] LIC# [id number] MCHC 32.1 32.0 - 36.0 g/dL [facility] LIC# [id number] RDW 17.2(H) 11.5 - 14.5 % [facility] LIC# [id number] MPV 10.4 8.4 - 12.0 fL [facility] LIC# [id number] NRBC 0.00 0 /100 WBCs [facility] LIC# [id number] ABSOLUTE NRBC 0.00 0 K/uL [facility] LIC# [id number] BLASTS 0.0 0 % [facility] LIC# [id number] NEUTS (MANUAL) 76.3(H) 48.0 - 76.0 % [facility] LIC# [id number] LYMPHS 10.7(L) 18.0 - 41.0 % [facility] LIC# [id number] MONOS 3.1(L) 4.0 - 11.0 % [facility] LIC# [id number] EOSINOPHIL 7.6(H) 0.0 - 5.0 % [facility] LIC# [id number] BASOPHIL 2.3(H) 0.0 - 1.5 % [facility] LIC# [id number] ABSOLUTE NEUTS 3.91 1.92 - 7.60 K/uL [facility] LIC# [id number] ABSOLUTE LYMPHS 0.55(L) 0.72 - 4.10 K/uL [facility] LIC# [id number] ABSOLUTE MONOS 0.16 0.16 - 1.10 K/uL [facility] LIC# [id number] ABSOLUTE EOS 0.39 0.00 - 0.50 K/uL [facility] LIC# [id number] ABSOLUTE BASO 0.12 0.00 - 0.15 K/uL [facility] LIC# [id number] ABSOLUTE BLASTS 0.00 0 K/uL [facility] LIC# [id number] VACUOLATED NEUTS [facility] LIC# [id number] ANISO Few [facility] LIC# [id number] POIKILOCYTOSIS Few [facility] LIC# [id number] MACROCYTES Few [facility] LIC# [id number] OVALOCYTES Few [facility] LIC# [id number] PLT GIANT FORMS PRESENT [facility] LIC# [id number] DIFF METHOD MANUAL [facility] LIC# [id number] Blood 01/03/2025 10:3 4 AM EDT 01/03/2025 10:40 AM EDT us Addison Maldonado MD, PhD LAB BLOOD ORDERABLES Fin al Result Performing Organization Address [facility] Co de Phone Number [facility] LIC# [id number] [address] [place] [address] * LDH (01/03/2025 10:34 AM EDT) Pathologist [facility] LDH 178 135 - 225 U/L [facility] LIC# [id number] Comment:INTERPRET WITH CAUTI ON, SPECIMEN HEMOLYZED Blood 01/03/2025 10:3 4 AM EDT 01/03/2025 10:40 AM EDT us Addison Maldonado MD, PhD LAB BLOOD ORDERABLES Fin al Result Performing Organization Address [facility] Co de Phone Number [facility] LIC# [id number] [address] [place] [address] * (ABNORMAL) Comprehensive metabolic panel (01/03/2025 10:34 AM EDT) SODIUM 139 136 - 145 mmol/L [facility] LIC# [id number] POTASSIUM 4.5 3.4 - 5.1 mmol/L [facility] LIC# [id number] CHLORIDE 96(L) 98 - 107 mmol/L [facility] LIC# [id number] CO2 34(H) 22 - 31 mmol/L [facility] LIC# [id number] BUN 56(H) 6 - 23 mg/dL [facility] LIC# [id number] CREATININE 1.63(H) 0.50 - 1.20 mg/dL [facility] LIC# [id number] GLUCOSE 269(H) 70 - 100 mg/dL [facility] LIC# [id number] ALBUMIN 4.4 3.5 - 5.2 g/dL [facility] LIC# [id number] TOTAL PROTEIN 6.8 6.4 - 8.3 g/dL [facility] LIC# [id number] CALCIUM 9.4 8.8 - 10.7 mg/dL [facility] LIC# [id number] ALKALINE PHOSPHATASE 48 40 - 129 U/L [facility] LIC# [id number] TOTAL BILIRUBIN 0.4 0.2 - 1.2 mg/dL [facility] LIC# [id number] AST 20 <41 U/L [facility] LIC# [id number] ALT 20 <42 U/L [facility] LIC# [id number] GLOBULIN 2.4 2.3 - 4.2 g/dL [facility] LIC# [id number] EGFR 44(L) >59 mL/min/1.7 3m2 [facility] LIC# [id number] Comment:Estimated glomerular filtration rate calculated using the CKD-EPI refit equation. ANION GAP 9 7 - 17 mmol/L [facility] LIC# [id number] Blood 01/03/2025 10:3 4 AM EDT 01/03/2025 10:40 AM EDT us Addison Maldonado MD, PhD LAB BLOOD ORDERABLES Fin al Result [facility] LIC# [id number] [address] [place] [address] * Iron and iron binding capacity (01/03/2025 10:34 AM EDT) IRON 103 59 - 158 ug/dL [facility] LIC# [id number] IRON BINDING CAPACITY 322 220 - 460 ug/dL [facility] LIC# [id number] TRANSFERRIN SATURAT. 32 14 - 50 % [facility] LIC# [id number] Blood 01/03/2025 10:3 4 AM EDT 01/03/2025 10:40 AM EDT us Addison Maldonado MD, PhD LAB BLOOD ORDERABLES Fin al Result Performing Organization Address City/[facility]/ZIP Co de Phone Number [facility] LIC# [id number] [address] [place] [address] * Type and Screen (ABO,Rh,Antibody Screen) (01/03/2025 10:34 AM EDT) Expiration Date of Sample 01/06/2025 11:59 PM 01/03/2025 11:52 AM EDT [facility] Resulting Agency [facility] ABO Type O 01/03/2025 11:52 AM EDT [facility] Rh Type Positive 01/03/2025 11:52 AM EDT [facility] Antibody Screen Negative 01/03/2025 11:52 AM EDT [facility] Blood 01/03/2025 10:3 4 AM EDT 01/03/2025 10:40 AM EDT us Addison Maldonado MD, PhD BLOOD BANK TEST ORDERABL ES Final Result Performing Organization Address [facility] Co de Phone Number [facility] [address] [place] [address] * Ferritin (01/03/2025 10:34 AM EDT) FERRITIN 149 30 - 400 ug/L [facility] LIC# [id number] Blood 01/03/2025 10:3 4 AM EDT 01/03/2025 10:40 AM EDT us Addison Maldonado MD, PhD LAB BLOOD ORDERABLES Fin al Result [facility] LIC# [id number] [address] [place] [address] from Last 3 Months Insurance MEDICARE PPO BLUE REPLACEMENT MEDICARE PPO BLUE REPLACEMENT MEDICARE PPO BLUE REPLACEMENT MEDICARE PPO BLUE REPLACEMENT MEDICARE PPO BLUE REPLACEMENT Care Teams Retread Builder Relationship Specialty Start Date End Date Grayson Berrios DO [address] [place] [address] [address] [place] [address] PCP - General Internal Medicine 07/20/24 Self-Referred, Patient Referring Physician 06/29/24 Johny Bennett MD [email or web address] 07/20/24 Jesus Beasley MD [address] [facility] [address] [place] [address] Gastroenterology 07/20/24 Jessica Batista MD [address] [place] [address] Pulmonary Disease 01/03/25 Peter Thorne MD 300 [facility] [address] [place] [address] Vascular Surgery 01/03/25 Mateo Bird MD [address] [place] [address] [address] [place] [address] Cardiology 01/03/25 [place] [address] [place] [address] [address] [place] [address] Nephrology 01/03/25 Additional Source Comments The information contained in this document represents components of the legal health record. It is not the complete legal health record.[facility]
--- OUTSIDE RECORDS SUMMARY | 2025-03-27 13:09 | XMS_ITS | Clinical Summary ---
Author Organization [facility] Address [address] [place] [address] Care Team Providers Care Steel Tier Name Role Phone Grayson Berrios DO Primary Care Provider [phone] Allergies No known active allergies Medications Medication [...] age to complete this topic Care Teams Steel Tier Relationship Specialty Start Date End Date Grayson Berrios DO [address] [place] [address] PCP - General Internal Medicine 12/26/22
== END 2025-03-27 11:05 | disposition home or self-care (01) ==
LOC: HO.HCS 10:43
PROVIDERS: PCP Internal Medicine; Visit Provider Internal Medicine Cardiovascular Disease
DX: I50.32 Chronic diastolic (congestive) heart failure (principal); I48.20 Chronic atrial fibrillation, unspecified; Z01.810 Encounter for preprocedural cardiovascular examination
CPT/HCPCS: 99214; G2211

== ENCOUNTER → 2025-03-27 10:43 | Outpatient (BNVA) | payer MEDICARE, SELFPAY | PROVIDERS: PCP Internal Medicine; Visit Provider Internal Medicine Cardiovascular Disease | DX: Z01.810 Encounter for preprocedural cardiovascular examination (principal); I50.32 Chronic diastolic (congestive) heart failure; I48.20 Chronic atrial fibrillation, unspecified | CPT/HCPCS: 99212 ==

== ENCOUNTER 2025-05-18 09:05 | Outpatient (REF) | payer MEDICARE, SELFPAY ==
--- OUTSIDE RECORDS SUMMARY | 2024-03-09 09:30 | XMS_ITS | Encounter Summary ---
Author Organization [facility] Address [address] [place] [address] Care Team Providers Care Vascular Surgery Physician Name Role Phone Grayson Berrios DO Primary Care Provider [phone] Encounter Details Date Type Department Care Team (Latest Contact Info) Description 03/09/2024 10:30 AM EDT Hospital Encounter TH HISTORIC ENCOUNTERS EASTERN CONVERSION ONLY Chronic kidney disease, stage 3a (CMS/HCC V24, CMS/HCC V28) Social History Tobacco Use Types Packs/Day Years Used Date Smoking Tobacco: Former Cigarettes 0.5 Q uit: 12/31/2010 Passive Smoke Exposure: Past Smokeless Tobacco: Never Comments:Quit 2011 Alcohol Use Standard Drinks/Week Comments Not Currently 0 (1 standard drink = 0.6 oz pure alcohol) Quit 2011, history of heavy consumption Interpersonal Safety Answer Date Record ed Physical Abuse Unrecognized value 08/24/2024 Verbal Abuse Unrecognized value 08/24/2024 Sex and Gender Information Value Date Recorded Sex Assigned at Male 06/16/2024 10:59 AM EST Legal Sex Male 10:15 PM EST Gender Identity Male 06/16/2024 10:59 AM EST Sexual Orientation Straight 06/16/2024 10 :59 AM EST documented as of this encounter Last Filed Vital Signs Vital Sign Reading Time Taken Comments Blood Pressure - - Pulse - - Temperature - - Respiratory Rate - - Oxygen Saturation - - Inhaled Oxygen Concentration - - Weight 84.1 kg (185 lb 6.4 oz) 02/10/2024 11:04 AM EDT Height - - Body Mass Index 28.19 01/13/2024 2:24 PM EDT documented in this encounter Functional Status * Calculated C-SSRS Risk Score (Lifetime/Recent) Answer Date of Assessment Author No Risk Indicated 08/23/2024 9:10 PM EDT Becki Cooper RN * [place] Suicide Severity Rating Scale (Screener/Recent Self-Report) Question Answer Date of Assessment Author 1. Wish to be (Past 1 Month) No 025 9:10 PM EDT Becki Cooper RN 2. Non-Specific Active Suici los Thoughts (Past 1 Month) No 08/23/2024 9:10 PM EDT Becki Cooper RN 6. Suicidal Behavior (Lifetime) No 9:10 PM EDT Becki Cooper RN documented as of this encounter Progress Notes * Historical, Notes Results - 03/09/2024 10:30 AM EDT Pt arrives today accompanied by for 2 units of PRBC. HGB 7.6. pt reports feeling tired. Medications allergies and assessment reviewed. PIV inserted RIGHT outer AC. Pt tolerated well. 1200 1st unit of PRBC infusing. Pt tolerating well. Pt resting in chair watching tv. Call finnegan in reach. 1300 1st unit infusing. Pt tolerating well. Pt eating lunch watching tv. 1400 2nd unit PRBC infusing. Pt tolerated step 1. No s/s of reaction. Pt up to the restroom several times one assist. 1605 2nd unit transfusion complete. Pt tolerated well. PIV removed without incident. Stable at discharge. documented in this encounter Plan of Treatment Upcoming Encounters Date Type Department Care Team (Late st Contact Info) Description 05/29/2025 8:30 AM EST Appointment [facility] [address] [place] [address] [address] [place] [address] 06/12/2025 9:30 AM EST Consult Vascular Surgery - [place] [address] [place] [address] Peter Thorne MD [address] [place] [address] 07/25/2025 10:40 AM EST Office Visit Gastroenterology - [address] [facility] 299 [facility] [address] [place] [address] Lilia Stephens, [place] [address] [facility] [address] [place] [address] 08/23/2025 10:15 AM EDT Office Visit Pulmonology - [place] 175 [facility] [address] [place] [address] Jessica Neal MD [address] [place] [phone] 08/30/2025 10:30 AM EDT Office Visit [facility] Hematology Oncology [address] [place] [address] Johny Bennett MD [address] [place] [address] documented as of this encounter Visit Diagnoses Diagnosis Chronic kidney disease, stage 3a (CMS/HCC V24, CMS/HCC V28) documented in this encounter Care Teams Vascular Surgery Physician Relationship Specialty Start Date End Date Grayson Berrios DO [address] [place] [phone] PCP - General 08/22/15 documented as of this encounter
--- OUTSIDE RECORDS SUMMARY | 2025-05-15 08:00 | XMS_ITS | Encounter Summary ---
Author Organization [facility] Address [address] [place] [address] Care Team Providers Care Hyperbaric Technologist Name Role Phone Grayson Berrios Primary Care Provider [phone] Encounter Details Date Type Department Care Team (Late st Contact Info) Description 05/15/2025 8:00 AM EST Lab Draw Station - [address] [address] Chronic renal failure, stage 3 (moderate), unspecified whether stage 3a or 3b CKD (CMS/HCC V24, CMS/HCC V28); Anemia, unspecified type; Drug therapy; Iron deficiency Social History Tobacco Use Types Packs/Day Years [...] Info) Description 05/29/2025 8:30 AM EST Appointment [facility] 271 [facility] 2nd [place] [phone] 06/12/2025 9:30 AM EST Consult Vascular Surgery - [place] [address] [place] [address] Peter Thorne MD [address] [place] [phone] 07/25/2025 10:40 AM EST Office Visit Gastroenterology - 299 [facility] 299 [facility] [address] [place] [address] Lilia Stephens NP 299 [facility] [address] [place] [address] 08/23/2025 10:15 AM EDT Office Visit Pulmonology - [place] 175 [facility] 200 [place] [address] Jessica Neal MD 230 [place] [phone] 08/30/2025 10:30 AM EDT Office Visit [facility] Hematology Oncology [address] [place] [phone] Johny Bennett MD [address] [place] [address] documented as of this encounter Procedures Procedure Name Priority Date/Time Associated Diagnosis Comments CBC WITH AUTO DIFFERENTIAL STAT 05/15/2025 7:59 AM EST Chronic renal failure, stage 3 (moderate), unspecified whether stage 3a or 3b CKD (CMS/HCC V24, CMS/HCC V28) Anemia, unspecified type Drug therapy CBC AND DIFFERENTIAL STAT 05/15/2025 7:59 AM EST Chronic renal failure, stage 3 (moderate), unspecified whether stage 3a or 3b CKD ([facility]/HCC V24, [facility]/HCC V28) Anemia, unspecified type Drug therapy TYPE AND SCREEN STAT 05/15/2025 7:59 AM EST Iron deficiency Anemia, unspecified type Drug therapy TRANSFERRIN Routine 05/15/2025 7:59 AM EST Chronic renal failure, stage 3 (moderate), unspecified whether stage 3a or 3b CKD (CMS/HCC V24, CMS/HCC V28) Anemia, unspecified type Drug therapy FERRITIN Routine 05/15/2025 7:59 AM EST Chronic renal failure, stage 3 (moderate), unspecified whether stage 3a or 3b CKD ([facility]/HCC V24, [facility]/HCC V28) Anemia, unspecified type Drug therapy documented in this encounter Results * (ABNORMAL) CBC auto differential (05/15/2025 7:59 AM EST) WBC 6.7 4.8 - 10.8 K/mcL LAB HEMETOLOGY METHOD 05/15/2025 8:[address] [facility] RBC 3.00(L) 4.50 - 5.50 M/mcL LAB HEMETOLOGY METHOD 05/15/2025 8:[address] [facility] Hemoglobin 10.0(L) 13.5 - 17.5 g/dL LAB HEMETOLOGY METHOD 05/15/2025 8:[address] [facility] Hematocrit 31.3(L) 42.0 - 54.0 % LAB HEMETOLOGY METHOD 05/15/2025 8:[address] [facility] MCV 104.0(H) 79.0 - 98.0 FL LAB HEMETOLOGY METHOD 05/15/2025 8:[address] [facility] MCH 33.2(H) 27.0 - 32.0 pcg LAB HEMETOLOGY METHOD 05/15/2025 8:[address] [facility] MCHC 31.9(L) 32.0 - 37.0 g/dL LAB HEMETOLOGY METHOD 05/15/2025 8:[address] [facility] RDW 16.4(H) 11.0 - 15.0 % LAB HEMETOLOGY METHOD 05/15/2025 8:[address] [facility] Platelets 159 130 - 400 K/mcL LAB HEMETOLOGY METHOD 05/15/2025 8:[address] [facility] MPV 10.6 7.0 - 11.0 FL LAB HEMETOLOGY METHOD 05/15/2025 8:[address] [facility] NRBC 0.0 <1.0 % LAB HEMETOLOGY METHOD 05/15/2025 8:[address] [facility] NRBC Absolute 0.00 <0.10 K/mcL LAB HEMETOLOGY METHOD 05/15/2025 8:[address] [facility] Neutrophils Relative 74.3 % LAB HEMETOLOGY METHOD 05/15/2025 8:[address] [facility] Lymphocytes Relative 12.5 % LAB HEMETOLOGY METHOD 05/15/2025 8:[address] [facility] Monocytes Relative 9.4 % LAB HEMETOLOGY METHOD 05/15/2025 8:[address] [facility] Eosinophils Relative 3.1 % LAB HEMETOLOGY METHOD 05/15/2025 8:[address] [facility] Basophils Relative 0.4 % LAB HEMETOLOGY METHOD 05/15/2025 8:[address] [facility] Immature Granulocytes Relative 0.3 % LAB HEMETOLOGY METHOD 05/15/2025 8:[address] [facility] Neutrophils Absolute 4.98 1.50 - 7.00 K/mcL LAB HEMETOLOGY METHOD 05/15/2025 8:12 AM EST [facility] Lymphocytes Absolute 0.84(L) 1.00 - 5.00 K/[facility] LAB HEMETOLOGY METHOD 05/15/2025 8:12 AM EST [facility] Monocytes Absolute 0.63 0.20 - 1.00 K/[facility] LAB HEMETOLOGY METHOD 05/15/2025 8:12 AM EST [facility] Eosinophils Absolute 0.21 0.00 - 0.50 K/[facility] LAB HEMETOLOGY METHOD 05/15/2025 8:12 AM EST [facility] Basophils Absolute 0.03 0.00 - 0.20 K/[facility] HEMETOLOGY METHOD 05/15/2025 8:[address] [facility] Immature Granulocytes Absolute 0.02 0.00 - 0.03 K/[facility] LAB HEMETOLOGY METHOD 05/15/2025 8:12 AM EST [facility] Blood Venous blood specimen / Unknown Venipuncture / Unknown 05/15/2025 7:59 AM EST 05/15/2025 8:08 AM EST Johny Bennett MD LAB BLOOD ORDERABLES Final R esult [facility] [address] [place] [address], * Type and screen (05/15/2025 7:59 AM EST) ABO Group O 05/15/2025 10:31 AM EST [facility] Rh Type Positive 05/15/2025 10:31 AM EST [facility] Antibody Screen Negative 05/15/2025 10:31 AM EST [facility] Blood Venous blood specimen / Unknown Venipuncture / Unknown 05/15/2025 7:59 AM EST 05/15/2025 8:09 AM EST Johny Bennett MD LAB BLOOD BANK TEST ORDERABL ES Final Result [facility] [address] [place] [address], [place] [phone] * Transferrin (05/15/2025 7:59 AM EST) Transferrin 293 200 - 360 mg/dL 05/17/2025 5:07 AM EST [facility] Comment: Test performed at [facility], [address], [place] [address] Brenda Murray MD, PhD - Electronic Scale Subassembler Blood Venous blood specimen / Unknown Venipuncture / Unknown 05/15/2025 7:59 AM EST 05/15/2025 8:08 AM EST Johny Bennett MD LAB BLOOD ORDERABLES Final R esult [facility] [address] [place] [address] * Ferritin (05/15/2025 7:59 AM EST) Ferritin 118 11 - 307 ng/mL 05/15/2025 8:38 AM EST [facility] Blood Venous blood specimen / Unknown Venipuncture / Unknown 05/15/2025 7:59 AM EST 05/15/2025 8:08 AM EST Johny Bennett MD LAB BLOOD ORDERABLES Final R esult [facility]) [facility] [address] [place] [address], [place] [phone] documented in this encounter Visit Diagnoses Diagnosis Chronic renal failure, stage 3 (moderate), unspecified whether stage 3a or 3b CKD (CMS/HCC V24, CMS/HCC V28) Anemia, unspecified type Drug therapy Encounter for other specified aftercare Iron deficiency Disorders of iron metabolism documented in this encounter Care Teams Hyperbaric Technologist Relationship Specialty Start Date End Date Grayson Berrios DO [address] [place] [phone] PCP - General 08/22/15 documented as of this encounter
--- OUTSIDE RECORDS SUMMARY | 2025-05-15 08:04 | XMS_ITS | Encounter Summary ---
Author Organization [facility] Address [address] [place] [address] Care Team Providers Care Transmitter Tester Name Role Phone YashGrasyon Primary Care Provider [phone] Reason for Visit * Episode Based Medications (Routine) - Authorized Specialty Diagnoses / Procedures Referred By Abiola rod Referred To Contact Diagnoses Chronic renal failure, stage 3 (moderate), unspecified whether stage 3a or 3b CKD (CMS/HCC V24, CMS/HCC V28) Anemia, unspecified type Drug therapy Johny Bennett MD [address] [place] [address] Phone: tel: fax: [facility] [address] [place] [address] Phone: tel: fax: Referral ID Status Reason Start Date Expiration Date V isits Requested Visits Authorized [id number] Authorized 06/16/2024 06/16/2025 1 58 Encounter Details Date Type Department Care Team (Latest Contact Info) Description 05/15/2025 8:04 AM EST Hospital Encounter [facility] [address] [phone] Johny Bennett MD [address] [place] [address] Chronic renal failure, stage 3 (moderate), unspecified [...] Sign Reading Time Taken Comments Blood Pressure 110/66 05/15/2025 8:24 AM EST Pulse 92 05/15/2025 8:24 AM EST Temperature 36.2 C (97.2 F) 05/15/2025 8:24 AM EST Respiratory Rate - - Oxygen Saturation 99% 05/15/2025 8:24 AM EST Inhaled Oxygen Concentration - - Weight - - Height - - Body Mass Index - - documented in this encounter Progress Notes * Marlee Fraser RN - 05/15/2025 8:30 AM EST Pt arrives ambulatory for retacrit injection. Pt reports feeling well overall. No signs or symptomsof bleeding. Medications, allergies, labs, and assessment reviewed. Medication released to pharmacyand brought to room temperature. Injection given RIGHT arm SQ. Pt tolerated well. Pt had labs drawndownstairs. H/H 03/31.3 Appointment made for next injection . Pt stable at discharge. documented in this encounter Plan of Treatment Upcoming Encounters Date Type Department Care Team (Late st Contact Info) Description 05/29/2025 8:30 AM EST Appointment [facility] [address] [facility] 2nd [place] [phone] 06/12/2025 9:30 AM EST Consult Vascular Surgery - [place] [address] [place] [address] Peter Thorne MD 230 [place] [phone] 07/25/2025 10:40 AM EST Office Visit Gastroenterology - 299 [facility] 299 [facility] [address] [place] [address] Lilia Stephens NP 299 [facility] 419 [place] [address] 08/23/2025 10:15 AM EDT Office Visit Pulmonology - [place] 175 [facility] 200 [place] [address] Jessica Neal MD 230 [place] [phone] 08/30/2025 10:30 AM EDT Office Visit [facility] Hematology Oncology [address] [place] [phone] Johny Bennett MD 271 [place] [address] documented as of this encounter Visit Diagnoses [...] 20,000 Units 20,000 Units, subcutaneous, Once, On 05/15/25 at 0845, For 1 doseIndications:Chronic renal failure, stage 3 (moderate), unspecified whether stage 3a or 3b CKD (CMS/HCC V24, CMS/HCC V28),Anemia, unspecified type,Drug therapy Given 05/15/2025 8:37 AM EST 20,000 Units Right Upper Arm (Back) documented in this encounter Orders Medications Ordered That Bryon ht Not Have Been Administered Count Last Ordered Date First Ordered Date epoetin donna-epbx (RETACRIT) injection 20,000 Units 1 05/15/2025 documented in this encounter Care Teams Transmitter Tester Relationship Specialty Start Date End Date Grayson Berrios DO [address] [place] [phone] PCP - General 08/22/15 documented as of this encounter
--- OUTSIDE RECORDS SUMMARY | 2025-05-18 10:14 | XMS_ITS | Encounter Summary ---
Author Organization [facility] Address [address] [place] [address] Care Team Providers Care Transplant Registered Nurse Name Role Phone Grayson Berrios Primary Care Provider [phone] Encounter Details Date Type Department Care Team (Late st Contact Info) Description 04/04/[address] [facility] - Main Lab 299 [place] [address] Johny Bennett MD 271 [place] [address] Chronic kidney disease, unspecified; Monoclonal gammopathy; Nutritional anemia, unspecified Social History Tobacco Use Types Packs/Day Years Used Date Smoking Tobacco: Former Cigarettes 0.5 Q uit: 12/31/2010 Smokeless Tobacco: Never Alcohol [...] Info) Description 05/29/2025 8:30 AM EST Appointment [facility] 271 [facility] 2nd [place] [phone] 06/12/2025 9:30 AM EST Consult Vascular Surgery - [place] [address] [place] [phone] Peter Thorne MD 230 [place] [address] 07/25/2025 10:40 AM EST Office Visit Gastroenterology - 299 [facility] 299 [facility] [address] [place] [address] Lilia Stephens, [place] 299 [facility] [address] [place] [address] 08/23/2025 10:15 AM EDT Office Visit Pulmonology - [place] 175 [facility] 200 [place] [address] Jessica Neal MD 230 [place] [phone] 08/30/2025 10:30 AM EDT Office Visit [facility] Hematology Oncology [address] [place] [phone] Johny Bennett MD 271 [place] [address] documented as of this encounter Procedures Procedure [...] ABO Group O 04/04/2024 12:50 PM EST [facility] Rh Type Positive 04/04/2024 12:50 PM EST [facility] Antibody Screen Negative 04/04/2024 12:50 PM EST [facility] Blood Venous blood specimen / Unknown 04/04/2024 8:00 AM EST 04/04/2024 12:01 PM EST Johny Bennett MD LAB BLOOD BANK TEST ORDERABL ES Final Result [facility] 299 [place] [address], * (ABNORMAL) Complete blood count (04/04/2024 8:00 AM EST) Pathologist [facility] WBC 5.1 4.8 - 10.8 K/mcL LAB HEMETOLOGY METHOD 04/04/2024 10:13 AM [facility] RBC 2.50(L) 4.50 - 5.50 M/[facility] LAB HEMETOLOGY METHOD 04/04/2024 10:13 AM [facility] Hemoglobin 6.6(L) 13.5 - 17.5 g/dL LAB HEMETOLOGY METHOD 04/04/2024 10:13 AM [facility] Hematocrit 23.2(L) 42.0 - 54.0 % LAB HEMETOLOGY METHOD 04/04/2024 10:13 AM [facility] MCV 91.3 79.0 - 98.0 FL LAB HEMETOLOGY METHOD 04/04/2024 10:13 AM [facility] MCH 26.0(L) 27.0 - 32.0 pcg LAB HEMETOLOGY METHOD 04/04/2024 10:13 AM [facility] MCHC 28.4(L) 32.0 - 37.0 g/dL LAB HEMETOLOGY METHOD 04/04/2024 10:13 AM EST [facility] RDW 17.5(H) 11.0 - 15.0 % LAB HEMETOLOGY METHOD 04/04/2024 10:13 AM [facility] Platelets 273 130 - 400 K/mcL LAB HEMETOLOGY METHOD 04/04/2024 10:13 AM [facility] MPV 10.8 7.0 - 11.0 FL LAB HEMETOLOGY METHOD 04/04/2024 10:13 AM [facility] NRBC 0.0 <1.0 % LAB HEMETOLOGY METHOD 04/04/2024 10:13 AM [facility] NRBC Absolute 0.00 <0.10 K/mcL LAB HEMETOLOGY METHOD 04/04/2024 10:13 AM [facility] Blood Venous blood specimen / Unknown 04/04/2024 8:00 AM EST 04/04/2024 9:58 AM EST Johny Bennett MD LAB BLOOD ORDERABLES Final R esult [facility] [address] [place] [address], documented in this encounter Visit Diagnoses Diagnosis Chronic kidney disease, unspecified Monoclonal gammopathy Monoclonal paraproteinemia Nutritional anemia, unspecified documented in this encounter Care Teams Transplant Registered Nurse Relationship Specialty Start Date End Date Grayson Berrios DO [address] [place] [phone] PCP - General 08/22/15 documented as of this encounter
--- OUTSIDE RECORDS SUMMARY | 2025-05-18 10:14 | XMS_ITS | Encounter Summary ---
Author Organization [facility] Address [address] [place] [address] Care Team Providers Care Assembler Metal Building Name Role Phone RaquelGrayson hamm Primary Care Provider [phone] Encounter Details Date Type Department Care Team (Late st Contact Info) Description 04/11/2024 Lab Requisition [facility] - Main Lab [address] [facility] [address] [place] [address] Meghana Hayden PA [address] [place] [phone] Frequency of micturition; Anemia, unspecified Social [...] Description 05/29/2025 8:30 AM EST Appointment [facility] 271 [facility] 2nd [place] [phone] 06/12/2025 9:30 AM EST Consult Vascular Surgery - [place] [address] [place] [phone] ePter Thorne MD 230 [place] [phone] 07/25/2025 10:40 AM EST Office Visit Gastroenterology - 299 [facility] 299 [facility] 419 [place] [address] Lilia Stephens, [place] 299 [facility] [address] [place] [address] 08/23/2025 10:15 AM EDT Office Visit Pulmonology - [place] 175 [facility] 200 [place] [address] Jessica Neal MD 230 [place] [phone] 08/30/2025 10:30 AM EDT Office Visit [facility] Hematology Oncology 271 [place] [phone] Johny Bennett MD 271 [place] [address] documented as of this encounter Procedures Procedure Name Priority Date/Time Associated Diagnosis Comments NON-GYNECOLOGIC CYTOLOGY 04/08/2024 12:00 AM EST Frequency of micturition Anemia, unspecified documented in this encounter Results * Non-gynecologic cytology (04/08/2024 12:00 AM EST) Final Diagnosis Urine: Negative for high grade urothelial carcinoma. 04/13/2024 4:06 PM EST [facility] at 1606 EST Specimen A Adequacy Satisfactory for evaluation 04/13/2024 4:06 PM [facility] Gross Description A. Urine, Clean Catch, : Rec'd 20 cc of clear yellow fluid. 1 ThinPrep preparation. 04/13/2024 4:06 PM [facility] Disclaimer Unless otherwise specified, all tissue is 10% NB formalin fixed and paraffin embedded. Technical cytopathology services provided by [facility], at [address] [place] [address] (CLIA # [id number]/Sonia Singleton MD, Air Bag Stripper.) 04/13/2024 4:06 PM [facility] Urine Urine specimen obtained by clean catch procedure / Unknown 04/08/2024 04/11/2024 10:49 AM EST us Meghana [facility] LAB CYTOLOGY ORDERABLES Wendie l Result [facility] 299 [place] [address], documented in this encounter Visit Diagnoses Diagnosis Frequency of micturition Urinary frequency Anemia, unspecified documented in this encounter Care Teams Assembler Metal Building Relationship Specialty Start Date End Date Grayson Berrios DO [address] [place] [phone] PCP - General 08/22/15 documented as of this encounter
--- OUTSIDE RECORDS SUMMARY | 2025-05-18 10:14 | XMS_ITS | Encounter Summary ---
Author Organization [facility] Address [address] [place] [address] Care Team Providers Care Registry Np Name Role Phone Grayson Berrios DO Primary Care Provider [phone] Reason for Visit * Reason Comments Anemia Encounter Details Date Type Department Care Team ([facility] st Contact Info) Description 10/05/2024 Billing Patient Not Present Gastroenterology - [address] [phone] Jesus Beasley MD [address] [address] Social History Tobacco Use Types Packs/Day Years [...] Info) Description 05/29/2025 8:30 AM EST Appointment [facility] Infusion [facility] 271 [facility] 2nd [place] [phone] 06/12/2025 9:30 AM EST Consult Vascular Surgery - [place] [address] [place] [address] Peter Thorne MD 230 [place] [phone] 07/25/2025 10:40 AM EST Office Visit Gastroenterology - [address] [place] [address] 299 [facility] [address] [place] [address] Lilia Stephens, [place] 299 [facility] [address] [place] [address] 08/23/2025 10:15 AM EDT Office Visit Pulmonology - [place] 175 [facility] 200 [place] [address] Jessica Neal MD 230 [place] [phone] 08/30/2025 10:30 AM EDT Office Visit [facility] Hematology Oncology 271 [place] [phone] Johny Bennett MD [address] [place] [address] documented as of this encounter Visit Diagnoses Not on filedocumented in this encounter Care Teams Registry Np Relationship Specialty Start Date End Date Grayson Berrios DO [address] [place] [phone] PCP - General 08/22/15 documented as of this encounter
--- OUTSIDE RECORDS SUMMARY | 2025-05-18 10:15 | XMS_ITS | Clinical Summary ---
Author Organization [facility] Prior to 10/29/24 Address [address] [place] [address] Care Team Providers Care Artist Agent Name Role Phone Grayson Berrios DO Primary Care Provider [phone] Allergies No known active allergies Medications Medication [...] 75+ series) 2024 COVID-19 Vaccine (5 - season) 2025 01/24/2022, 03/12/2021, 08/24/2020, Additional history exists Influenza Vaccine (#1) 2025 2, 04/05/2021, 02/01/2020, Additional history exists Hepatitis B Vaccines Aged Out No long er eligible based on patient's age to complete this topic RSV Ped < 20 months Aged Out No longe r eligible based on patient's age to complete this topic Care Teams Artist Agent Relationship Specialty Start Date End Date Grayson Berrios DO [address] [place] [address] PCP - General Internal Medicine 12/26/22
--- OUTSIDE RECORDS SUMMARY | 2025-05-18 10:15 | XMS_ITS | Encounter Summary ---
Author Organization [facility] Address [address] [place] [address] Care Team Providers Care Supervisor Travel Trailer Name Role Phone Grayson Berrios DO Primary Care Provider [phone] Encounter Details Date Type Department Care Team (Late st Contact Info) Description 10/14/[address] [facility] - Main Lab [address] [facility] [place] [address] Aakash Johnson MD [address] [place] [id number] Monoclonal gammopathy Social History Tobacco Use Types [...] Info) Description 05/29/2025 8:30 AM EST Appointment [facility] Infusion Center [address] [facility] 2nd [place] [phone] 06/12/2025 9:30 AM EST Consult Vascular Surgery - [place] [address] [place] [address] Peter Thorne MD [address] [place] [phone] 07/25/2025 10:40 AM EST Office Visit Gastroenterology - [address] [facility] [address] [facility] [address] [place] [phone] Lilia Stephens NP [address] [facility] [address] [place] [address] 08/23/2025 10:15 AM EDT Office Visit Pulmonology - [place] [address] [facility] [address] [place] [phone] Jessica Neal MD [address] [place] [phone] 08/30/2025 10:30 AM EDT Office Visit [facility] Hematology Oncology [address] [place] [phone] Johny Bennett MD [address] [place] [address] documented as of this encounter Procedures Procedure Name Priority Date/Time Associated Diagnosis Comments HISTORICAL SURGICAL PATHOLOGY CASE Routine 10/14/2024 8:38 AM EDT Monoclonal gammopathy documented in this encounter Results * Historical Pathology Case (10/14/2024 8:38 AM EDT) Final Diagnosis 10/28/2024 1:[address] [facility] at 1337 EDT Clinical Information Historical [facility] 10/28/2024 1:[address] [facility] Gross Description A. Bone Marrow Aspirate, A-M asp, core bx, clot: At the request of [facility] Dr. Singh [id number] - (17) slides sent: [facility] -Pathology processing (RICKY) [address] [facility] [address] [place] [address] FED[employer] # [id number] 07/18/24 - KK 10/28/2024 1:[address] [facility] Disclaimer Unless otherwise specified, all tissue is 10% NB formalin fixed and paraffin embedded. 10/28/2024 1:[address] [facility] Tissue Specimen from bone marrow obtained by aspiration / Unknown 10/14/2024 8:38 AM EDT 10/14/2024 8:39 AM EDT us Aakash Johnson MD LAB PATHOLOGY ORDERABLES Final Result [facility] [address] [place] [address], documented in this encounter Visit Diagnoses Diagnosis Monoclonal gammopathy Monoclonal paraproteinemia documented in this encounter Care Teams Supervisor Travel Trailer Relationship Specialty Start Date End Date Grayson Berrios DO [address] [place] [phone] PCP - General 08/22/15 documented as of this encounter
--- OUTSIDE RECORDS SUMMARY | 2025-05-18 10:15 | XMS_ITS | Clinical Summary ---
Author Organization [facility] Address [address] [place] [address] Phone Care Team Providers Care Respite Coordinator Name Role Phone YashOlganacho DUDLEY Primary Care Provider [phone] Allergies No known active allergies Medications ascorbic acid (VITAMIN C) 500 mg tablet Take 1 tablet (500 mg total) by mouth 1 (one) time each day. Active pravastatin (PRAVACHOL) 80 mg tablet [...] 1 (one) time each day. 4 Active potassium chloride 20 mEq tablet extended release Take 20 mEq by mouth 3 (three) times a day. Active torsemide (DEMADEX) 20 mg tablet Take 1 tablet (20 mg total) by mouth 1 (one) time each day. Active Additional Information Patient taking differently:20 mg oral2 times daily, Reported on 04/11/2025 metFORMIN (GLUCOPHAGE) 500 mg tablet Take 1 tablet (500 mg total) by mouth 2 times daily. Active fluticasone furoate-vilanter oL (Breo Ellipta) 200-25 mcg/dose inhalerIndicatio ns:Chronic obstructive pulmonary disease, unspecified COPD type (CMS/HCC V24, CMS/HCC V28) Inhale 1 puff by mouth 1 (one) time each day. 3 each 3 5 03/01/20 Active Incruse Ellipta 62.5 mcg/actuation inhalationIndica tions:Chronic obstructive pulmonary disease, unspecified COPD type (CMS/HCC V24, CMS/HCC V28) Inhale 1 puff by mouth 1 (one) time each day. 3 each 3 5 03/01/20 Active albuterol HFA (PROAIR HFA ; PROVENTIL HFA ; VENTOLIN HFA) 90 mcg/actuation inhaler Inhale 2 puffs by mouth every 6 (six) hours if needed for wheezing or shortness of breath. 3 each 3 5 03/01/20 Active ferrous sulfate 325 mg (65 mg iron) EC tablet Take 1 tablet (325 mg total) by mouth 3 (three) times a day with meals. Do not crush, chew, or split. Active Active Problems Problem Noted Date Diagnosed Date Aneurysm of other specified arteries 04/07/2025 Iliac artery aneurysm, left 04/07/2025 Prominent popliteal pulse 11/14/2024 Liver cirrhosis 09/28/2024 Assessment & Plan (09/28/2024 1:00 PM EDT): [...] 025 Clear cell carcinoma of kidney 07/17/2024 Dyslipidemia 07/17/2024 (HFpEF) heart failure with preserved ejection fr action 07/17/2024 COPD with emphysema 07/17/2024 CRF (chronic renal failure) 06/16/2024 Iron deficiency 05/27/2024 Anemia, unspecified type 05/24/2024 Myelodysplastic syndrome 04/06/2024 Diabetes type 2, controlled 01/25/2024 COPD (chronic obstructive pulmonary disease) Benign hypertensive renal disease 11/26/2020 Stage 3a chronic kidney disease 11/26/2020 Depressive disorder 01/01/2007 Congestive heart failure 08/10/2006 Overview (09/20/2024): EF 25-30% echo 07/08, cath negative IMO update Atrial fibrillation 07/18/2005 Malaise and fatigue 07/18/2005 Obesity, unspecified 07/18/2005 Alcohol abuse 05/05/2005 Essential hypertension, benign 05/05/2005 Encounters Date Type Department Care Team Description 05/15/2025 8:04 AM EST Hospital Encounter [facility] [address] [place] [phone] Johny Bennett MD Chronic renal failure, stage 3 (moderate), unspecified whether stage 3a or 3b CKD (CMS/HCC V24, CMS/HCC V28) (Primary Dx); Anemia, unspecified type; Drug therapy 05/15/2025 8:00 AM EST Lab Draw Station - [address] [phone] Chronic renal failure, stage 3 (moderate), unspecified whether stage 3a or 3b CKD (CMS/HCC V24, CMS/HCC V28); Anemia, unspecified type; Drug therapy; Iron deficiency 05/01/2025 8:07 AM EST - 05/01/2025 11:59 PM EST Hospital Encounter [facility] [address] [place] [phone] Johny Bennett MD Chronic renal failure, stage 3 (moderate), unspecified whether stage 3a or 3b CKD ([facility] V24, [facility] V28) (Primary Dx); Anemia, unspecified type; Drug therapy Discharge Disposition: Home or Self Care 05/01/2025 8:00 AM EST Lab Draw Station - [address] [phone] Chronic renal failure, stage 3 (moderate), unspecified whether stage 3a or 3b CKD (CMS/HCC V24, [facility] V28); Anemia, unspecified type; Drug therapy; Iron deficiency 04/25/2025 7:30 AM EST - 04/25/2025 8:30 AM EST Surgery [facility] [facility] [address] [place] [phone] Peter Thorne MD Angiography iliac left [[id number] (CPT )] 04/25/2025 7:00 AM EST - 04/25/2025 3:16 PM EST Hospital Encounter [facility] [place] [facility] [address] [place] [phone] Peter Thorne MD Aneurysm of other specified arteries ([facility] V24) Discharge Disposition: Home or Self Care 04/17/2025 8:10 AM EST - 04/17/2025 11:59 PM EST Hospital Encounter [facility] [address] [place] [phone] Johny Bennett MD Chronic renal failure, stage 3 (moderate), unspecified whether stage 3a or 3b CKD (CMS/HCC V24, [facility] V28) (Primary Dx); Anemia, unspecified type; Drug therapy Discharge Disposition: Home or Self Care 04/17/2025 8:05 AM EST Lab Draw Station - [address] [phone] Chronic renal failure, stage 3 (moderate), unspecified whether stage 3a or 3b CKD (CMS/HCC V24, CMS/HCC V28); Anemia, unspecified type; Drug therapy; Iron deficiency 04/07/2025 9:30 AM EST Office Visit Vascular Surgery - [place] [address] [place] [phone] Peter Thorne MD Aneurysm of left common iliac artery (CMS/HCC V24) (Primary Dx); Aneurysm of right common iliac artery (CMS/HCC V24); Aneurysm of left internal iliac artery ([facility]/HCC V24) 04/03/2025 8:14 AM EST - 04/03/2025 11:59 PM EST Hospital Encounter [facility] [address] [place] [phone] Johny Bennett MD Chronic renal failure, stage 3 (moderate), unspecified whether stage 3a or 3b CKD (CMS/HCC V24, CMS/HCC V28) (Primary Dx); Anemia, unspecified type; Drug therapy Discharge Disposition: Home or Self Care 04/03/2025 8:10 AM EST Lab Draw Station - [address] [phone] Chronic renal failure, stage 3 (moderate), unspecified whether stage 3a or 3b CKD (CMS/HCC V24, CMS/HCC V28); Anemia, unspecified type; Drug therapy; Iron deficiency 03/20/2025 8:10 AM EDT - 03/20/2025 11:59 PM EDT Hospital Encounter [address] [phone] Johny Bennett MD Chronic renal failure, stage 3 (moderate), unspecified whether stage 3a or 3b CKD (CMS/HCC V24, CMS/HCC V28) (Primary Dx); Anemia, unspecified type; Drug therapy Discharge Disposition: Home or Self Care 03/06/2025 8:06 AM EDT - 03/06/2025 11:59 PM EDT Hospital Encounter [facility] [address] [place] [phone] Johny Bennett MD Chronic renal failure, stage 3 (moderate), unspecified whether stage 3a or 3b CKD ([facility] V24, [facility] V28) (Primary Dx); Anemia, unspecified type; Drug therapy Discharge Disposition: Home or Self Care 03/01/2025 10:30 AM EDT Office Visit [facility] Hematology Oncology [address] [place] [phone] Johny Bennett MD Anemia, unspecified type (Primary Dx); Myelodysplastic syndrome ([facility] V24, [facility] V28); Stage 3a chronic kidney disease ([facility] V24, [facility] V28) 03/01/2025 Telephone [facility] Hematology Oncology [address] [place] [phone] Nicole Jacob [place] 02/23/2025 11:00 AM EDT Office Visit Pulmonology - [place] [address] [place] [phone] Jessica Neal MD Abnormal chest CT (Primary Dx); Chronic obstructive pulmonary disease, unspecified COPD type ([facility] V24, [facility] V28); Bronchiectasis without acute exacerbation ([facility] V24, [facility] V28); Lung nodules; Ex-smoker; CHRISTINE (obstructive sleep apnea) 02/17/2025 11:00 AM EDT Office Visit Vascular Surgery [facility] [address] [place] [phone] Peter Thorne MD Aneurysm artery, iliac ([facility] V24) (Primary Dx); Prominent popliteal pulse 02/17/2025 9:28 AM EDT - 02/17/2025 11:59 PM EDT Hospital Encounter [facility] CT Scan [address] [place] [phone] Lung nodules Discharge Disposition: Home or Self Care from Last 3 Months Immunizations Immunization Administration Dates Next Due Pfizer (ages 12 & older) ANALILIA S-CoV-2 COVID-19, mRNA, LNP-S, javier-sucrose, preservative free 01/24/2022 [employer] SARS-CoV-2 COVID-19, mRNA, LNP-S, preservative free 03/12/2021,08/24/2020,08/03/2020 Surgical History Surgery Date Site/Laterality Comments NEPHRECTOMY Right PROCEDURE:NEPHRECTOMY WATCHMAN IMPLANT TOTAL HIP ARTHROPLASTY Right TRANSURETHRAL RESECTION OF PROSTATE BONE MARROW BIOPSY HIP ARTHROPLASTY Right PROSTATE SURGERY CARDIAC SURGERY INSERT / REPLACE / REMOVE PACEMAKER COLONOSCOPY UPPER GASTROINTESTINAL ENDOSCOPY Medical History Medical History Date Comments History of kidney cancer DX:Hist ory of kidney cancer CHF (congestive heart failur e) ([facility] V24, [facility] V28) DX:CHF (congestive heart andreea lure) ([facility]) Diabetes mellitus ([facility] V 24, [facility] V28) DX:Diabetes mellitus (HCC) COPD (chronic obstructive pu lmonary disease) ([facility] V24, [facility] V28) DX:COPD (chronic o bstructive pulmonary disease) ([facility]) Hypertension DX:Hypertension BPH (benign prostatic hyperplasia) DX:BPH (benign prostatic hyperplasia) Essential hypertension, benign 05/05/2005 D X:Essential hypertension, benign Alcohol abuse, unspecified 05/05/2005 DX:Al cohol abuse, unspecified Arteritis, unspecified ([facility] V24) DX:Arteritis, unspecified ([facility]) Congestive heart failure, unspecified 08/10/2006 DX:Congestive heart failure, unspecified; COMMENT: EF 25-30% echo 07/08 Pulmonary hypertension ([facility] V24, [facility] V28) DX:Pulmonary hypertension (H CC) CAD (coronary artery disease) Chronic hypoxic respiratory failure ([facility] V24, [facility] V28) on 2L O2 Myelodysplastic syndrome ( S[facility] V24, [facility] V28) Atrial fibrillation ([facility] V24, [facility] V28) Hyperlipidemia Renal cancer ([facility] V24, [facility] V28) CKD (chronic kidney disease) GI bleed AVM (arteriovenous malformation) Liver cirrhosis ([facility] V24 , [facility] V28) Anemia GERD (gastroesophageal reflux disease) Shortness of breath Peripheral vascular disease ([facility] V24) Family History Medical History Relation Name Comments [...] Orientation Straight 06/16/2024 10 :59 AM EST Last Filed Vital Signs Vital Sign Reading Time Taken Comments Blood Pressure 110/66 05/15/2025 8:24 AM EST Pulse 92 05/15/2025 8:24 AM EST Temperature 36.2 C (97.2 F) 05/15/2025 8:24 AM EST Respiratory Rate 20 05/01/2025 8:34 AM EST Oxygen Saturation 99% 05/15/2025 8:24 AM EST Inhaled Oxygen Concentration - - Weight 87.1 kg (192 lb) 04/25/2025 7:09 AM EST Height 172.7 cm (5' 8 ) 04/25/2025 7:09 AM EST Body Mass Index 29.19 04/25/2025 7:09 AM EST Plan of Treatment Upcoming Encounters Date Type Department Care Team (Late st Contact Info) Description 05/29/2025 8:30 AM EST Appointment [facility] [address] [place] [phone] 06/12/2025 9:30 AM EST Consult Vascular Surgery - [place] [address] [place] [phone] Peter Thorne MD [address] [place] [phone] 07/25/2025 10:40 AM EST Office Visit Gastroenterology - [address] [place] [phone] Lilia Stephens NP [address] [facility] [address] [place] [address] 08/23/2025 10:15 AM EDT Office Visit Pulmonology [facility] [address] [facility] [address] [place] [phone] Jessica Neal MD [address] [place] [phone] 08/30/2025 10:30 AM EDT Office Visit [facility] Hematology Oncology [address] [place] [phone] Johny Bennett MD [address] [place] [address] Health Maintenance Due Date Last Done Comments Diabetes: Annual Foot Exam 1959 Diabetes: Annual Retina Eye Exam 1959 DTaP,Tdap,and Td Vaccines (1 - Tdap) 1968 Hepatitis A Vaccines (1 of 2 - Risk 2-dose series) 1968 Abdominal Aortic Aneurysm (AAA) Screen 05/15/2022 Hepatitis C Screening 05/15/2022 Medicare Annual Wellness Visit 05/15/2022 Social Influencers of Health Screening 05/15/2022 Diabetes: Annual Urine Albumin-Creatinine Ratio (uACR) 03/10/2024 Depression Screening 06/01/2024 Colorectal Cancer Screening: Colonoscopy 11/09/2024 11/09/2014 Diabetes: Blood Sugar Control Test (HGBA1C) 04/28/2025 10/26/2024 COVID-19 Vaccine (10 - Pfizer risk season) 2025 04/07/2025, 04/08/2024, 08/15/2023, Additional history exists Falls Risk Assessment 03/20/2026 03/20/2025 Diabetes: Annual GFR (Glomerular Filtration Rate) 05/04/2026 05/04/2025, 04/25/2025, 01/03/2025, Additional history exists Hypertension/CHF/CAD Annual BMP Blood Test 05/04/2026 05/04/2025, 04/25/2025, 01/03/2025, Additional history exists Cholesterol Screening (Lipid Panel) 10/26/2029 10/26/2024 Pneumococcal Vaccine: 50+ Years Completed 04/03/2015, 02/16/2015, 03/13/2013 RSV Immunization Adult Patients Completed 05/15/2023 Zoster [...] age to complete this topic Medical Devices Implanted Type Area Mortgage Underwriter Device Identifier Shelf Expiration Date Model / Serial / Lot Plug Vasc Amplatzer 2 20mm - [id number] Implanted:Qty: 1 on 04/25/2025 by Peter Thorne MD at [facility] Other Cardiac Implant Left: Arterial [employer] [id number] 07/01/2026 [id number]-[id number] System Perclose Proglide 6f - [id number] Implanted:Qty: 1 on 04/25/2025 by Peter Thorne MD at [facility] Vascular Closure Devices Right: Groin [employer] [id number] 09/28/2026 [id number] / / [id number] Procedures Procedure Name Priority Date/Time Associated Diagnosis [...] CMS/HCC V28) Anemia, unspecified type Drug therapy PROCEDURAL ECG Routine 05/04/2025 1:02 PM EST Iliac artery aneurysm, left (CMS/HCC V24) COMPLETE BLOOD COUNT Routine 05/04/2025 12:51 PM EST COMPREHENSIVE METABOLIC PANEL Routine 05/04/2025 12:47 PM EST Iliac artery aneurysm, left (CMS/HCC V24) MAGNESIUM Routine 05/04/2025 12:47 PM EST Iliac artery aneurysm, left (CMS/HCC V24) TYPE AND SCREEN Routine 05/04/2025 12:47 PM EST Iliac artery aneurysm, left (CMS/HCC V24) CBC WITH AUTO DIFFERENTIAL STAT 05/01/2025 8:01 AM EST Chronic renal failure, stage 3 (moderate), unspecified whether stage 3a or 3b CKD (CMS/HCC V24, CMS/HCC V28) Anemia, unspecified type Drug therapy TYPE AND SCREEN STAT 05/01/2025 8:01 AM EST Iron deficiency Anemia, unspecified type Drug therapy CBC AND DIFFERENTIAL STAT 05/01/2025 8:01 AM EST Chronic renal failure, stage 3 (moderate), unspecified whether stage 3a or 3b CKD (CMS/HCC V24, CMS/HCC V28) Anemia, unspecified type Drug therapy ANGIOGRAPHY ILIAC LEFT Routine 11:53 AM EST Aneurysm of other specified arteries ([facility] V24) PROTHROMBIN TIME WITH INR Routine 04/25/2025 7:42 AM EST CBC WITH AUTO DIFFERENTIAL Routine 04/25/2025 7:42 AM EST ACTIVATED PARTIAL THROMBOPLASTIN TIME Routine 04/25/2025 7:42 AM EST CBC AND DIFFERENTIAL Routine 04/25/2025 7:42 AM EST BASIC METABOLIC PANEL Routine 04/25/2025 7:42 AM EST CBC WITH AUTO DIFFERENTIAL STAT 04/17/2025 8:04 AM EST Chronic renal failure, stage 3 (moderate), unspecified whether stage 3a or 3b CKD (CMS/HCC V24, CMS/HCC V28) Anemia, unspecified type Drug therapy TYPE AND SCREEN STAT 04/17/2025 8:04 AM EST Iron deficiency Anemia, unspecified type Drug therapy CBC AND DIFFERENTIAL STAT 04/17/2025 8:04 AM EST Chronic renal failure, stage 3 (moderate), unspecified whether stage 3a or 3b CKD (CMS/HCC V24, CMS/HCC V28) Anemia, unspecified type Drug therapy CBC WITH AUTO DIFFERENTIAL STAT 04/03/2025 8:08 AM EST Chronic renal failure, stage 3 (moderate), unspecified whether stage 3a or 3b CKD (CMS/HCC V24, CMS/HCC V28) Anemia, unspecified type Drug therapy TYPE AND SCREEN STAT 04/03/2025 8:08 AM EST Iron deficiency Anemia, unspecified type Drug therapy CBC AND DIFFERENTIAL STAT 04/03/2025 8:08 AM EST Chronic renal failure, stage 3 (moderate), unspecified whether stage 3a or 3b CKD (CMS/HCC V24, CMS/HCC V28) Anemia, unspecified type Drug therapy CBC WITH AUTO DIFFERENTIAL STAT 03/20/2025 8:03 AM EDT Chronic renal failure, stage 3 (moderate), unspecified whether stage 3a or 3b CKD (CMS/HCC V24, CMS/HCC V28) Anemia, unspecified type Drug therapy TYPE AND SCREEN STAT 03/20/2025 8:03 AM EDT Iron deficiency Anemia, unspecified type Drug therapy CBC AND DIFFERENTIAL STAT 03/20/2025 8:03 AM EDT Chronic renal failure, stage 3 (moderate), unspecified whether stage 3a or 3b CKD (CMS/HCC V24, CMS/HCC V28) Anemia, unspecified type Drug therapy CBC WITH AUTO DIFFERENTIAL STAT 03/06/2025 8:02 [...] unspecified whether stage 3a or 3b CKD ([facility] V24, [facility] V28) Anemia, unspecified type Drug therapy TYPE AND SCREEN STAT 02/20/2025 8:13 AM EDT Anemia, unspecified Chronic kidney disease, stage III (moderate) ([facility] V24, [facility] V28) Drug therapy CT CHEST WO CONTRAST Routine 02/17/2025 9:45 AM EDT Lung nodules HEMOGLOBIN A1C Routine 10/26/2024 10:58 AM EDT DM (diabetes mellitus) ([facility] V24, [facility] V28) Routine general medical examination at a health care facility HLD (hyperlipidemia) HTN (hypertension) A-fib ([facility] V24, [facility] V28) LIPID PANEL WITH REFLEX TO DIRECT LDL Routine 10/26/2024 10:58 AM EDT DM (diabetes mellitus) ([facility] V24, [facility] V28) Routine general medical examination at a health care facility HLD (hyperlipidemia) HTN (hypertension) A-fib ([facility] V24, [facility] V28) EXTERNAL COLONOSCOPY REPORT Routine 11/09/2014 1:00 PM EDT from Last 3 Months or Most Recently Relevant to Health Maintenance Results * (ABNORMAL) CBC auto differential (05/15/2025 7:59 AM EST) Only the most recent of8 resultswithin the time period is included. WBC 6.7 4.8 - 10.8 K/[facility] HEMETOLOGY METHOD 05/15/2025 8:12 AM EST [facility] RBC 3.00(L) 4.50 - 5.50 M/[facility] LAB HEMETOLOGY METHOD 05/15/2025 8:12 AM EST [facility] Hemoglobin 10.0(L) 13.5 - 17.5 g/dL LAB HEMETOLOGY METHOD 05/15/2025 8:12 AM [facility] Hematocrit 31.3(L) 42.0 - 54.0 % LAB HEMETOLOGY METHOD 05/15/2025 8:12 AM [facility] MCV 104.0(H) 79.0 - 98.0 FL LAB HEMETOLOGY METHOD 05/15/2025 8:12 AM [facility] MCH 33.2(H) 27.0 - 32.0 pcg LAB HEMETOLOGY METHOD 05/15/2025 8:12 AM [facility] MCHC 31.9(L) 32.0 - 37.0 g/dL LAB HEMETOLOGY METHOD 05/15/2025 8:12 AM [facility] RDW 16.4(H) 11.0 - 15.0 % LAB HEMETOLOGY METHOD 05/15/2025 8:12 AM [facility] Platelets 159 130 - 400 K/mcL LAB HEMETOLOGY METHOD 05/15/2025 8:12 AM [facility] MPV 10.6 7.0 - 11.0 FL LAB HEMETOLOGY METHOD 05/15/2025 8:12 AM [facility] NRBC 0.0 <1.0 % LAB HEMETOLOGY METHOD 05/15/2025 8:12 AM [facility] NRBC Absolute 0.00 <0.10 K/mcL LAB HEMETOLOGY METHOD 05/15/2025 8:12 AM [facility] Neutrophils Relative 74.3 % LAB HEMETOLOGY METHOD 05/15/2025 8:12 AM [facility] Lymphocytes Relative 12.5 % LAB HEMETOLOGY METHOD 05/15/2025 8:12 AM [facility] Monocytes Relative 9.4 % LAB HEMETOLOGY METHOD 05/15/2025 8:12 AM [facility] Eosinophils Relative 3.1 % LAB HEMETOLOGY METHOD 05/15/2025 8:12 AM [facility] Basophils Relative 0.4 % LAB HEMETOLOGY METHOD 05/15/2025 8:12 AM [facility] Immature Granulocytes Relative 0.3 % LAB HEMETOLOGY METHOD 05/15/2025 8:12 AM EST [facility] Neutrophils Absolute 4.98 1.50 - 7.00 K/mcL LAB HEMETOLOGY METHOD 05/15/2025 8:12 AM [facility] Lymphocytes Absolute 0.84(L) 1.00 - 5.00 K/mcL LAB HEMETOLOGY METHOD 05/15/2025 8:12 AM [facility] Monocytes Absolute 0.63 0.20 - 1.00 K/mcL LAB HEMETOLOGY METHOD 05/15/2025 8:12 AM EST [facility] Eosinophils Absolute 0.21 0.00 - 0.50 K/mcL LAB HEMETOLOGY METHOD 05/15/2025 8:12 AM [facility] Basophils Absolute 0.03 0.00 - 0.20 K/mcL LAB HEMETOLOGY METHOD 05/15/2025 8:12 AM [facility] Immature Granulocytes Absolute 0.02 0.00 - 0.03 K/mcL LAB HEMETOLOGY METHOD 05/15/2025 8:12 AM [facility] Blood Venous blood specimen / Unknown Venipuncture / Unknown 05/15/2025 7:59 AM EST 05/15/2025 8:08 AM EST us Johny Bennett MD LAB BLOOD ORDERABLES Final R esult [facility] [address] [place] [address], * Type and screen (05/15/2025 7:59 AM EST) Only the most recent of8 resultswithin the time period is included. ABO Group O 05/15/2025 10:31 AM EST [facility] Rh Type Positive 05/15/2025 10:31 AM EST [facility] Antibody Screen Negative 05/15/2025 10:31 AM EST [facility] Blood Venous blood specimen / Unknown Venipuncture / Unknown 05/15/2025 7:59 AM EST 05/15/2025 8:09 AM EST Johny Bennett MD LAB BLOOD BANK TEST ORDERABL ES Final Result Performing Organization Address City/[facility]/ZIP Co de Phone Number [facility] [address] [place] [address], * Transferrin (05/15/2025 7:59 AM EST) Transferrin 293 200 - 360 mg/dL 05/17/2025 5:07 AM EST [facility] Comment: Test performed at [facility], [address], [place] [address] Brenda Murray MD, PhD - Cashier Assistant Blood Venous blood specimen / Unknown Venipuncture / Unknown 05/15/2025 7:59 AM EST 05/15/2025 8:08 AM EST us Johny Bennett MD LAB BLOOD ORDERABLES Final R esult [facility] [address] [place] [address] * Ferritin (05/15/2025 7:59 AM EST) Ferritin 118 11 - 307 ng/mL 05/15/2025 8:38 AM EST [facility] Blood Venous blood specimen / Unknown Venipuncture / Unknown 05/15/2025 7:59 AM EST 05/15/2025 8:08 AM EST Johny Bennett MD LAB BLOOD ORDERABLES Final R esult [facility] [address] [place] [address], * ECG 12 lead - Procedural (No Charge) (05/04/2025 1:02 PM EST) Ventricular Rate ECG 96 BPM GEMUSE QRS Duration 114 ms GEMUSE Q-T Interval 376 ms GEMUSE QTc 475 ms GEMUSE R [place] 56 degrees GEMUSE T [place] 46 degrees GEMUSE ECG Interpretation Atrial fibrillation with premature ventricular or aberrantly conducted complexes Abnormal ECG When compared with ECG of 29-AUG-2024 14:13, No significant change was found Confirmed by Antonia CURRIE JOHN ([id number]) on 05/06/2025 2:19:02 PM GEMUSE 05/04/2025 1:02 PM EST 05/06/2025 2:19 PM EST Peter Thorne MD ECG ORDERABLES Final Result GEM[facility] * (ABNORMAL) CBC (05/04/2025 12:51 PM EST) WBC 7.7 4.8 - 10.8 K/mcL LAB HEMETOLOGY METHOD 05/04/2025 1:39 PM EST [facility] RBC 2.90(L) 4.50 - 5.50 M/mcL LAB HEMETOLOGY METHOD 05/04/2025 1:39 PM EST [facility] Hemoglobin 9.8(L) 13.5 - 17.5 g/dL LAB HEMETOLOGY METHOD 05/04/2025 1:39 PM EST [facility] Hematocrit 30.5(L) 42.0 - 54.0 % LAB HEMETOLOGY METHOD 05/04/2025 1:39 PM EST [facility] MCV 104.1(H) 79.0 - 98.0 FL LAB HEMETOLOGY METHOD 05/04/2025 1:39 PM EST [facility] MCH 33.4(H) 27.0 - 32.0 pcg LAB HEMETOLOGY METHOD 05/04/2025 1:39 PM EST [facility] MCHC 32.1 32.0 - 37.0 g/dL LAB HEMETOLOGY METHOD 05/04/2025 1:39 PM [facility] RDW 16.4(H) 11.0 - 15.0 % LAB HEMETOLOGY METHOD 05/04/2025 1:39 PM [facility] Platelets 243 130 - 400 K/mcL LAB HEMETOLOGY METHOD 05/04/2025 1:39 PM EST [facility] MPV 11.1(H) 7.0 - 11.0 FL LAB HEMETOLOGY METHOD 05/04/2025 1:39 PM EST [facility] NRBC 0.0 <1.0 % LAB HEMETOLOGY METHOD 05/04/2025 1:39 PM [facility] NRBC Absolute 0.00 <0.10 K/mcL LAB HEMETOLOGY METHOD 05/04/2025 1:39 PM EST [facility] Blood Venous blood specimen / Unknown Venipuncture / Unknown 05/04/2025 12:51 PM EST 05/04/2025 1:39 PM EST us Peter Thorne MD LAB BLOOD ORDERABLES Final Resu lt [facility] [address] [place] [address], * Magnesium (05/04/2025 12:47 PM EST) Pathologist [facility] Magnesium 2.1 1.9 - 2.6 mg/dL 05/04/2025 1:59 PM [facility] Blood Venous blood specimen / Unknown Venipuncture / Unknown 05/04/2025 12:47 PM EST 05/04/2025 1:59 PM EST Peter Thorne MD LAB BLOOD ORDERABLES Final Resu lt [facility] [address] [place] [address], * (ABNORMAL) CMP (05/04/2025 12:47 PM EST) [facility] Sodium 136 133 - 145 mmol/L 05/04/2025 2:06 PM [facility] Potassium 4.2 3.5 - 5.5 mmol/L 05/04/2025 2:06 PM [facility] Chloride 85(L) 96 - 110 mmol/L 05/04/2025 2:06 PM [facility] CO2 >40(HH) 21 - 32 mmol/L 05/04/2025 2:06 PM [facility] Anion Gap <11 3 - 11 05/04/2025 2:06 PM [facility] Glucose 385(H) 70 - 100 mg/dL 05/04/2025 2:06 PM [facility] BUN 63(H) 5 - 25 mg/dL 05/04/2025 2:06 PM [facility] Creatinine 2.18(H) 0.70 - 1.30 mg/dL 05/04/2025 2:06 PM [facility] eGFR 31(L) >=60 mL/min/1. 73m2 05/04/2025 2:06 PM [facility] Comment:Calculation based on the Chronic Kidney Disease Epidemiology Collaboration (CKD-EPI) equation refit without adjustment for race. BUN/Creatinine Ratio 28.9 05/04/2025 2:06 PM [facility] Calcium 9.7 8.5 - 10.5 mg/dL 05/04/2025 2:06 PM [facility] AST (SGOT) 15 10 - 42 unit/L 05/04/2025 2:06 PM [facility] ALT (SGPT) 15 10 - 60 unit/L 05/04/2025 2:06 PM [facility] Alkaline Phosphatase 39(L) 42 - 121 unit/L 05/04/2025 2:06 PM [facility] Total Protein 6.9 6.0 - 8.0 g/dL 05/04/2025 2:06 PM [facility] Albumin 4.3 3.2 - 5.0 g/dL 05/04/2025 2:06 PM [facility] Total Bilirubin 0.4 0.0 - 1.4 mg/dL 05/04/2025 2:06 PM [facility] Blood Venous blood specimen / Unknown Venipuncture / Unknown 05/04/2025 12:47 PM EST 05/04/2025 1:59 PM EST us Peter Thorne MD LAB BLOOD ORDERABLES Final Resu lt [facility] [address] [place] [address], * ANGIOGRAPHY ILIAC LEFT (04/25/2025 11:53 AM EST) Anatomical Region Laterality Modality X-Ray Angiograph y Narrative 04/26/2025 8:22 AM EST Per op note Non Coronary Arteries Findings Diagnostic No diagnostic findings have been documented. Intervention No interventions have been documented. 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 Clinical Background Per H&P Procedure Details Per op note us Peter Thorne MD CV INVASIVE VASCULAR PROCEDURES Final Result * Activated partial thromboplastin time (04/25/2025 7:42 AM EST) aPTT 27.0 24.1 - 39.3 sec LAB COAGULATION METHOD 04/25/2025 8:16 AM EST [facility] Blood Venous blood specimen / Unknown Venipuncture / Unknown 04/25/2025 7:42 AM EST 04/25/2025 7:50 AM EST us Peter Thorne MD LAB BLOOD ORDERABLES Final Resu lt Performing Organization Address [facility]/ZIP Co de Phone Number [facility] [address] [place] [address], [place] [phone] * Prothrombin time with INR (04/25/2025 7:42 AM EST) [facility] Protime 12.0 10.6 - 13.9 sec LAB COAGULATION METHOD 04/25/2025 8:16 AM EST [facility] INR 1.0 LAB COAGULATION METHOD 04/25/2025 8:16 AM EST [facility] Blood Venous blood specimen / Unknown Venipuncture / Unknown 04/25/2025 7:42 AM EST 04/25/2025 7:50 AM EST us Peter Thorne MD LAB BLOOD ORDERABLES Final Resu lt [facility] [address] [place] [address], [place] [phone] * (ABNORMAL) Basic metabolic panel (04/25/2025 7:42 AM EST) Pathologist [facility] Sodium 138 133 - 145 mmol/L 04/25/2025 8:22 AM EST [facility] Potassium 3.3(L) 3.5 - 5.5 mmol/L 04/25/2025 8:22 AM [facility] Chloride 88(L) 96 - 110 mmol/L 04/25/2025 8:22 AM [facility] CO2 >40(HH) 21 - 32 mmol/L 04/25/2025 8:22 AM [facility] Anion Gap <10 3 - 11 04/25/2025 8:22 AM [facility] Glucose 337(H) 70 - 100 mg/dL 04/25/2025 8:22 AM [facility] BUN 71(H) 5 - 25 mg/dL 04/25/2025 8:22 AM [facility] Creatinine 2.30(H) 0.70 - 1.30 mg/dL 04/25/2025 8:22 AM [facility] eGFR 29(L) >=60 mL/min/1. 73m2 04/25/2025 8:22 AM [facility] Comment:Calculation based on the Chronic Kidney Disease Epidemiology Collaboration (CKD-EPI) equation refit without adjustment for race. BUN/Creatinine Ratio 30.9 04/25/2025 8:22 AM [facility] Calcium 9.9 8.5 - 10.5 mg/dL 04/25/2025 8:22 AM [facility] Blood Venous blood specimen / Unknown Venipuncture / Unknown 04/25/2025 7:42 AM EST 04/25/2025 7:50 AM EST us Pteer Thorne MD LAB BLOOD ORDERABLES Final Resu lt [facility] [address] [place] [address], * CT Chest wo Contrast (02/17/2025 9:45 [...] Signed Date: 02/22/2025 14:16 ET Workstation ID: [id number] Transcribed By: Self Edit Transcribed Date: 02/22/2025 [...] Signed Date: 02/22/2025 14:16 ET Workstation ID: [id number] Transcribed By: Self Edit Transcribed Date: 02/22/2025 13:53 ET Jessica Neal MD IM CT PROCEDURES Final Result * Lipid panel with reflex to direct LDL (10/26/2024 10:58 AM EDT) Cholesterol 121 0 - 200 mg/dL LAB CHEMISTRY METHOD 10/26/2024 6:31 PM EDT [facility] Triglycerides 59 0 - 150 mg/dL LAB CHEMISTRY METHOD 10/26/2024 6:31 PM EDT [facility] HDL 59 >=40 mg/dL LAB CHEMISTRY METHOD 10/26/2024 6:31 PM EDT [facility] LDL Calculated 50 0 - 100 mg/dL LAB CHEMISTRY METHOD 10/26/2024 6:31 PM EDT [facility] VLDL Cholesterol Esa 11.8 mg/dL LAB CHEMISTRY METHOD 10/26/2024 6:31 PM EDT [facility] Non HDL Chol. (LDL+VLDL) 62 <145 mg/dL LAB CHEMISTRY METHOD 10/26/2024 6:31 PM EDT [facility] Chol/HDL Ratio 2.1 0.0 - 4.4 LAB CHEMISTRY METHOD 10/26/2024 6:31 PM EDT [facility] Blood Venous blood specimen / Unknown Venipuncture / Unknown 10/26/2024 10:58 AM EDT 10/26/2024 10:58 AM EDT [facility] LAB BLOOD ORDERABLES Final Resul t [facility] [address] [place] [address], * Hemoglobin A1c (10/26/2024 10:58 AM EDT) Hemoglobin A1C 6.2 <6.5 % LAB CHEMISTRY METHOD 10/26/2024 10:51 PM EDT [facility] Mean Bld Glu Estim. 131 mg/dL LAB CHEMISTRY METHOD 10/26/2024 10:51 PM EDT [facility] Blood Venous blood specimen / Unknown Venipuncture / Unknown 10/26/2024 10:58 AM EDT 10/26/2024 10:58 AM EDT [facility] LAB BLOOD ORDERABLES Final Resul t [facility] [address] [place] [address], [place] [phone] * External Colonoscopy Report (11/09/2014 1:00 PM EDT) Anatomical Region Laterality Modality Endoscopy Historical Provider GI~PROCEDURE ORDERABLES F inal Result from Last 3 Months or Most Recently Relevant to Health Maintenance Insurance [employer] - [place] MEDICARE ADVANTAGE Advance Directives Documents on File Type Date Recorded Patient Account Underwriter Expl anation Health Care Decision (hx) 09/27/2020 [...] on File) Date Activated Date Inactivated Comments 04/25/2025 11:40 AM 04/25/2025 5:31 PM This is o rder is used when code status has not been discussed with the patient, or code status is otherwise unknown/unconfirmed To update the patient's code status, place a code status order. Do not modify or discontinue any currently active code status orders. * Full Code - Default Date Activated Date Inactivated Comments 04/25/2025 7:16 AM 04/25/2025 11:40 AM This is o rder is used when code status has not been discussed with the patient, or code status is otherwise unknown/unconfirmed To update the patient's code status, place a code status order. Do not modify or discontinue any currently active code status orders. * Full Code - Default Date Activated Date Inactivated Comments 07/29/2024 12:46 [...] Farooqdro Spouse Health Care Agent Care Teams Respite Coordinator Relationship Specialty Start Date End Date Grayson Berrios DO [address] [place] [address] [phone] PCP - General 08/22/15
--- OUTSIDE RECORDS SUMMARY | 2025-05-18 10:15 | XMS_ITS | Clinical Summary ---
Author Organization [facility] Address [address] [place] [phone] Phone Care Team Providers Care Family Resource Management Professor Name Role Phone Self-Referred, Patient Unavailable Unavailab Johny Hopkins MD Unavailable [phone] Graysno Berrios DO Primary Care Provider [phone] Jesus Beasley MD Unavailable [phone] Jessica Batista MD Unavailable [phone] Peter Thorne MD Unavailable [phone] Mateo Bird MD Unavailable [phone] Donny Dodd MD Unavailable Allergies No known active allergies Medications albuterol 90 mcg/actuation inhaler 2 puffs every 4 (four) hours as needed. 05/04/2024 Active ascorbic acid, vitamin C, (VITAMIN C) 500 MG tablet Take 500 mg by mouth daily. Active ezetimibe (ZETIA) 10 mg tablet Take 10 mg by mouth daily. for 90 days Active ferrous sulfate 325 mg (65 mg newtok iron) tablet Take 1 tablet (325 mg [...] VACCINES (50+ years) (2 of 2 - PPSV23, PCV20, or PCV21) 04/13/2015 02/16/2015 DIABETIC EYE EXAM 07/17/2024 COVID-19 [...] this topic Medical Devices Not on file Insurance MEDICARE PPO BLUE REPLACEMENT MEDICARE PPO BLUE REPLACEMENT MEDICARE PPO BLUE REPLACEMENT MEDICARE PPO BLUE REPLACEMENT MEDICARE PPO BLUE REPLACEMENT Care Teams Family Resource Management Professor Relationship Specialty Start Date End Date Grayson Berrios DO [address] [place], [place] [address], [place] [address] PCP - General Internal Medicine 07/20/24 Self-Referred, Patient Referring Physician 06/29/24 Johny Bennett [email or web address] 07/20/24 Jesus Beasley MD [address] [place] [address] [address] [place] [address] Gastroenterology 07/20/24 Jessica Batista MD [address] [place] [address] Pulmonary Disease 01/03/25 Peter Thorne MD [address] [facility] [address] [place] [address] Vascular Surgery 01/03/25 Mateo Bird MD [address] [place] [address] [address] [place] [address] Cardiology 01/03/25 Donny Dodd MD [address] [place] [address] [address] [place] [address] Nephrology 01/03/25 Additional Source Comments The information contained in this document represents components of the legal health record. It is not the complete legal health record.[facility]
--- OUTSIDE RECORDS SUMMARY | 2025-05-18 10:15 | XMS_ITS ---
Author Organization [facility] Address [address] [place] [address] Phone Care Team Providers Care Retail Agent Name Role Phone Grayson Berrios DO Primary Care Provider [phone] Active Problems Problem Noted Date Diagnosed Date [...] Bennett MD Linked Problems Myelodysplastic syndrome (CM S/HCC V24, CMS/HCC V28)Anemia, unspecified typeIron deficiency Treatment Medications No medications scheduled. OUTPATIENT TRANSFUSION (PRN)* Plan Start Date:04/06/2024 Plan Provider:Johny Bennett MD Linked Problems Myelodysplastic syndrome (CM S/HCC V24, CMS/HCC V28) Treatment Medications No [...] Therapy Plans No past plan information found. Lifetime Dose Tracking * Chemical Lifetime Dose Automatic Entry Manual Entr y Radiation 1,315 mGy 0 mGy 1,315 mGy Fluoro Time 6.6 minutes 0 minutes 6.6 minutes
--- OUTSIDE RECORDS SUMMARY | 2025-05-18 10:15 | XMS_ITS | Clinical Summary ---
Author Organization [facility] Address [address] [facility] [address] [place] [address] Phone Care Team Providers Care Nursing Center Tutor Name Role Phone Grayson Berrios DO Primary [...] Years Used Date Smoking Tobacco: Former Cigarettes 1 Q uit: 06/01/2009 Smokeless Tobacco: Never Tobacco [...] % RTAMA 01/10/2019 us [facility] [id number] LICITED RESULTS Final Result RTAMA from Last 3 Months or Most Recently Relevant to Health Maintenance [place] [address] [address] Care Teams Nursing Center Tutor Relationship Specialty Start Date End Date Grayson Berrios DO [address] [place] [address] PCP - General 06/11/20
[2025-05-18 14:57] LABS: Anion Gap 14 (12-20); Blood Urea Nitrogen 68 mg/dL (9-16); Calcium 9.9 mg/dL (8.4-10.2); Carbon Dioxide 41 mmol/L (22-29); Chloride 84 mmol/L (96-108); Estimated Glomerular Filt Rate 30; Potassium 3.9 mmol/L (3.3-5.1); Sodium 135 mmol/L (135-145)
== END 2025-05-18 09:06 | disposition home or self-care (01) ==
LOC: HO.HKASLDS 09:05
PROVIDERS: PCP Internal Medicine; Visit Provider Internal Medicine Nephrology
DX: I12.9 Hypertensive chronic kidney disease with stage 1 through stage 4 chronic kidney disease, or unspecified chronic kidney disease (principal); N18.32 Chronic kidney disease, stage 3b; E55.9 Vitamin D deficiency, unspecified
CPT/HCPCS: 36415; 80051; 82310; 82565; 84520